=== PATIENT | female | born 1945 | race Caucasian/White ===

== ENCOUNTER 2023-08-15 10:07 | Outpatient (OUT) | payer MEDICARE, SELFPAY ==
--- NOTE | 2023-08-15 | VEIN_ITS ---
Patient Name: CHACHO EDWARDS MR#: [id number] : 1945 Exam Date: 08/15/2023 Ordering Doctor: DR BEATA MÉNDEZ RADIOLOGY REPORT PROCEDURE: [facility] - OFFICE VISIT INITIAL COMPARISON: None. PROGRESS NOTES: 78-year-old female who presents with a long history of lower extremity pain swelling and varicose veins. The patient complains of bilaterally symmetric pain rated as a 5 on a scale of 1-10. The patient describes the pain as aching heavy and dullness. This is significantly increased over the past year. The patient's symptoms are exacerbated by prolonged sitting and standing and are partially relieved by rest, late elevation, exercise, support stockings and over the counter Tylenol. The patient has had 2 episodes of deep vein thrombus 1 in the right groin following surgery 20 years ago and a 2nd in 2020 following covert. Both of these were thought to be provoked to the patient is not currently on anticoagulation. Patient has worn bilateral knee high compression stockings for several months which she obtained through the lymphedema clinic in [place]. The patient denies any signs and symptoms to suggest arterial ischemia. The patient describes a family history of varicose veins in a maternal aunt. . One of the patient's daughters was with her today's visit. Past medical history significant for lymphedema, type 2 diabetes, diabetic neuropathy, hypertension, diastolic dysfunction, deep vein thrombus, stage IIIB chronic kidney disease, stroke, morbid obesity, gastroesophageal reflux disease. Patient drinks alcohol occasionally. The patient has never smoked. No illicit drug use See separate history and physical for medication list. No prior treatment for varicose or spider veins. Nursing notes were reviewed. After history and physical exam I discussed at length the pathophysiology of venous hypertension and possible treatments, therapies and strategies available. We discussed at length the importance of elevating the lower extremities above the level of the heart, increased physical activity and compression stocking use. I discussed at length with the patient and her daughter that her swelling likely is multifactorial and related to lymphedema, diabetes, hypertension, diastolic dysfunction, obesity and lack of exercise. Her venous disease likely is mildly contributory. The risks benefits and alternatives were discussed with the patient. We discussed intravenous laser ablation and micro foam chemical ablation the alternatives of conservative therapy with compression stockings or compression wraps as well as ligation and stripping and phlebectomy were discussed Ultrasound venous reflux study performed same day was discussed at length with the patient. The report demonstrates moderate bilateral great saphenous vein venous insufficiency with dilatation saphenofemoral junction reflux. Bilateral incompetent varicose veins. Mild right and severe left deep vein reflux. PHYSICAL EXAM: The right leg demonstrates mild scattered varicose reticular and spider veins. Severe pitting edema below the knee. No active ulceration or hemosiderin staining. In the left leg demonstrates mild scattered varicose, reticular and spider veins. Severe pitting edema below the knee. No active ulceration or hemosiderin staining. Both thighs, legs and feet were symmetrically warm to the touch. The posterior tibial and dorsalis pedis pulses could not be palpated likely related to subcutaneous edema. VEIN/VC Facility EST Comprehensive IMPRESSION: 1. Moderate bilateral great saphenous vein venous insufficiency with dilatation and saphenofemoral junction reflux 2. Moderate bilateral incompetent lower extremity varicose veins 3. Severe bilateral lower extremity subcutaneous edema 4. Indeterminate flow significant arterial disease 5. CEAP: C3, Ep, As, Pr PLAN: 1. Endovenous laser ablation left great saphenous vein followed by right great saphenous vein 2. Micro foam chemical ablation bilateral incompetent varicose veins 3. Begin use of bilateral 20-30 mm compression stockings were compression wraps as tolerated by the patient 4. Weight loss and increased physical activity for symptomatic relief Nurse notes, history and physical were reviewed and confirmed, see attached forms. The nurse was present throughout the physical exam and consultation Dictated by: Fortunato Youngblood MD on 08/15/2023 at 12:06 Approved by: Fortunato Youngblood MD on 08/15/2023 at 12:12
--- NOTE | 2023-08-15 | VEIN_ITS ---
Patient Name: CHACHO EDWARDS MR#: [id number] : 1945 Exam Date: 08/15/2023 Ordering Doctor: DR BEATA MÉNDEZ RADIOLOGY REPORT PROCEDURE: VC EXT VENOUS REFLUX NARCISA LMTD COMPARISON: None. INDICATIONS: 187.2 venous stasis of both lower extremities TECHNIQUE: Duplex imaging of the lower extremity to assess the deep and superficial venous system for the presence of deep or superficial venous incompetence and to document the location and severity of disease. The study includes evaluation of the great saphenous vein (GSV), anterior accessory saphenous vein (AASV) and small saphenous vein (SSV). Patient scanned in reverse Trendelenburg and standing. FINDINGS: RIGHT LOWER EXTREMITY: Saphenofemoral Junction Reflux: Yes 10.5mm 3.1 sec GSV: Diam (mm) Reflux/ Time (sec) Proximal Thigh 10.2 Yes 1.4 Mid Thigh 5.8 Yes 1.5 Distal Thigh 5.1 Yes 2.6 Prox Calf 6.3 Yes 0.4 Mid Calf 4.4 Yes 0.6 Saphenopopliteal Junction Reflux: 3.8mm Yes 0.9 SSV: Proximal Calf 3.8 Yes 2.2 Mid Calf 3.8 No AASV: Not present Thrombi: No acute or chronic thrombus. Compressibility: Normal. Flow: Mild deep venous reflux. Preforator: None. Tech Note: Calf veins not well visualized. Abnormal lymph node right groin measures 4.1 x 2.8 x 1.3 cm. Incompetent varicose vein mid medial thigh measures 5.5 mm with 1.1s reflux. Varicose vein proximal medial lower leg measures 4.2 mm with 2.9s reflux. Medial knee varicose vein measures 4.5 mm with 1.9s reflux. LEFT LOWER EXTREMITY: Saphenofemoral Junction Reflux: Yes 9.1 mm 3.9 sec GSV: Diam (mm) Reflux/Time (sec) Proximal Thigh 9.0 Yes 1.7 Mid Thigh 7.3 Yes 1.1 Distal Thigh 6.9 Yes 0.7 Prox Calf 6.5 Yes 1.1 Mid Calf 4.8 Yes 0.6 Saphenopopliteal Junction Relux: 4.2 mm Yes 0.3 SSV: Proximal Calf 3.2 Yes 0.3 Mid Calf 2.9 Yes 0.4 AASV: Not present Thrombi: No acute or chronic thrombus. Compressibility: Normal. Flow: Severe deep venous reflux. [employer] Engineer: Proximal medial lower leg 3.9 mm with 1.8s reflux. Tech Note: Calf veins not well visualized. Incompetent varicose vein mid medial thigh measures 4.4 mm with 0.6s reflux. Mid medial thigh varicose vein measures 4.6 mm with 0.8s reflux. Proximal/medial lower leg varicose vein measures 4.9 mm with 1.6s reflux. CONCLUSION: 1. Moderate bilateral great saphenous vein venous insufficiency with dilatation and saphenofemoral junction reflux 2. Moderate venous insufficiency right small saphenous vein without dilatation 3. Bilateral incompetent varicose veins Dictated by: Fortunato Youngblood MD on 08/15/2023 at 11:20 Approved by: Fortunato Youngblood MD on 08/15/2023 at 11:23
== END 2023-08-15 10:08 | disposition home or self-care (01) ==
PROVIDERS: PCP Family Medicine; Visit Provider Family Medicine
DX: I87.2 Venous insufficiency (chronic) (peripheral) (principal); R60.0 Localized edema; E11.42 Type 2 diabetes mellitus with diabetic polyneuropathy; I87.8 Other specified disorders of veins
CPT/HCPCS: 93970; G0463

== ENCOUNTER 2023-08-24 10:23 | Outpatient (OUT) | payer MEDICARE, SELFPAY ==
--- NOTE | 2023-08-24 10:24 | VEIN_ITS ---
[address] [address] Patient Name: CHACHO EDWARDS MRN: [id number] date: 1945 Sex: F Assigned Patient Location: Current Patient Location: Accession/Order Number: [id number] Exam Date: 08/24/2023 10:35 Report Date: 08/24/2023 11:56 At the request of: ANGIE NGUYEN Procedure: VC Endovenous Ablation 1VeinLT EXAMINATION: VC Endovenous Ablation 1VeinLT HISTORY: Pain due to varicose veins of bilateral legs I83.813 The risks and benefits of the procedure had been previously discussed, and were rediscussed at length. Informed written consent was obtained. Stevo Marks RN and Tracy Mei RDMS, RVT assisted. Time out procedure was performed. The left lower extremity was prepared and draped in the usual sterile fashion to allow knee flexion in the sterile field. Duplex ultrasound probe was draped in a sterile cover, sterile transmission gel was used. Venous mapping was performed with the areas of dilation and large tributaries marked. The total length was 59 cm from the entry 3 cm above the ankle to 3 cm below the Saphenofemoral junction. The diameter of the left great saphenous vein ranged from 9.0 mm. A 30 gauge needle and 1% buffered lidocaine was used to anesthetize the entry site. A 4 mm incision was made with a scalpel and the saphenous vein was entered percutaneously under direct ultrasound guidance with a micropuncture set, a single stick was successful in gaining access. A micro-guide wire was inserted and the needle removed. A micro-set including a dilator was inserted over the microwire and the needle and dilator were removed. A guide wire was inserted through the micro-set and guided through the saphenous vein to the saphenofemoral junction. The dilator was removed and an introducer sheath was inserted over the wire until the end of the sheath entered the saphenofemoral junction. The dilator and wire were removed and the 600 micron fiber was introduced and placed and positioned so that it extended beyond the sheath and was 3 cm distal to the saphenofemoral or saphenopopliteal junction. Final position of the fiber was determined by ultrasound guidance and duplex imaging. Tumescent anesthetic was delivered by ultrasound guidance. 375 cc of fluid was delivered along the entire course of the saphenous vein. The solution consisted of 1000 cc of normal saline with 40 mL of 1% lidocaine and 20 mL of sodium bicarbonate. A final positioning check was made. The energy source was turned on by means of the foot pedal and the fiber and sheath were withdrawn. The total number of Joules delivered was 3051. The laser was active for 381 seconds under continuous pulse, average laser use of 8 J. Laser start time 11:31 AM, 08/24/2023. Laser stop time 11:38 AM, 08/24/2023. A duplex ultrasound revealed compressibility and flow at the saphenofemoral junction immediately after the procedure. Hemostasis at the access site was achieved. The skin incision of the saphenous vein was closed with a 4 x 4. A compression stocking was applied. Postop instructions were given. A follow up appointment was recommended and scheduled. The patient tolerated the procedure well. Electronically authenticated by: СВЕТЛАНА RODRIGUEZ Date: 08/24/2023 11:56
[2023-08-24] MEDS: LIDOCAINE HCL 1% 100 MG/10 ML MDV INJ (10:31)
[2023-08-24] MEDS: 0.9 % SODIUM CHLORIDE 500 ML, LIDOCAINE HCL 20 ML, SODIUM BICARBONATE 10 MEQ INJ (10:32)
--- OUTSIDE RECORDS SUMMARY | 2023-08-24 10:34 | XMS_ITS | CCD ---
Author Name Unknown Address [address] [place] [address] Organization [facility] Care Team Providers Care Mdm Developer Name Role Phone Lani Méndez Primary Care Provider Unavailab Daryl Velez Attending Provider Unavailable Lani Méndez Primary Care Physician Mel Suazo Unavailable Unavailable Sandy Rhoades Unavailable Unavailable Unavailable Primary Care Provider Unavailabl e PROVIDER, UNKNOWN Attending Unavailable PROVIDER, UNKNOWN Admitting Unavailable Rain Frederick Unavailable Unavailable MD Lani Méndez Primary Care Provider MD Delio Gonzales Admit Provider MD Delio Gonzales Attending Provider STEVE Nicolas Other Provider Unavailable STEVE Cowan Other Provider Unavailable STEVE Dubon Other Provider Unavailable STEVE Craig Other Provider Unavailable STEVE Jeong Other Provider Unavailable Kiana RN Jerilyn Other Provider Unavailable MD Amador Caldwell Other Provider Carmens, CRYPTANALYST Hilary Cobos Other Provider DO Helene Garcia Other Provider MD Rosales Cavanaugh Other Provider DO Damian Lugo Other Provider MD Maxime Palmer Other Provider MD Ashley Uribe Other Provider Reynaldo ANP-BC Jossy Other Provider MD Estre Gonzales Other Provider [phone] MD Gal Tovar Other Provider MD Bhavesh Gonzalez Other Provider MD Sherice Vera Other Provider DO Aldo Hughes Other Provider MD Yoselin Valencia Other Provider MD Asad Taylor Other Provider BRAULIO Ruelas Other Provider MD Wilfrid Huber Other Provider MD Caleb Roberts Other Provider MD Thiago Monteiro Other Provider DO Jillian Edwards Other Provider DO Andrew Lira Other Provider DO Jose David Bowens Other Provider [phone] ISIDRO Barry Other Provider DO Timothy Mercado Other Provider MD Fernando Rowe Other Provider ISIDRO Beyrs Other Provider STEVE Phipps Other Provider Unavailable Delio Gonzales Admitting Unavailable Delio Gonzales Attending Unavailable Jonelle Nicolas Consulting Unavailable AllLani garcía Primary Care Unavailable Gearheart, Katrin Consulting Unavailable Surekha Dubon Consulting Unavailable Densestevan, Frances Consulting Unavailable Salmons, Judy Consulting Unavailable Kiana, Jerilyn Consulting Unavailable Paulette, Amador K Consulting Unavailable Dials, Hilayr M Consulting Unavailable Helene Garcia Consulting Unavailable Rosales Cavanaugh Consulting Unavailable Damian Lugo Consulting UnavailMaxime Morfin Consulting Unavailable Rony Ashley Consulting Unavailable Jossy Jacobs Consulting Unavailable Ester Gonzales Consulting Unavailable Gal Tovar Consulting Unavailable Bhavesh Gonzalez Consulting Unavailable Sherice Vera Consulting Unavailable Aldo Hughes Consulting Unavailable Yoselin Valencia Consulting Unavailable Asad Taylor Consulting Unavailable Sophie Ruelas Consulting Unavailable Wilfrid Huber Consulting Unavailab Caleb Arellano Consulting Unavailable Thiago Monteiro Consulting Unavailable Jillian Edwards Consulting Unavailable Andrew Lira Consulting Unavailable Jose David Bowens Consulting Unavailable Kat Barry Consulting Unavailable Timothy Mercado Consulting Unavailable Daromar Obayjordih Papito Consulting Unavailable Michelle Byers Consulting Unavailable Eunice Phipps Consulting Unavailable Dayrl Oliver Unavailable JANA SOARES R Attending Unavailable LANI MÉNDEZ Attending Unavailable PETTY PATRICK Referring Unavailable LANI MÉNDEZ Attending Unavailable PETTY PATRICK Attending Unavailable CYNDI MORALES Attending Unavailab MD Dustin Larose Admitting Unavailable Lani Méndez Referring Unavailable Dustin Gonzales Attending Unavailable Lani Méndez Referring Unavailable Dustin Gonzales Admitting Unavailable Dustin Gonzales Attending Unavailable MD Dustin Gonzales Admitting Unavailable Dustin Gonzales Referring Unavailable Dustin Gonzales Attending Unavailable Mirna Bryant Attending Unavailable Lani Méndez Referring Unavailable CISCO Bryant Admitting Unavailabl MD Dustin Craig Admitting Unavailable Lani Méndez Referring Unavailable Dustin Gonzales Attending Unavailable Saul Soaresm Kurt Attending Unavailable Saul Soaresm Kurt Referring Unavailable MD Dustin Gonzales Admitting Unavailable Dustin Gonzales Attending Unavailable Dustin Gonzales Referring Unavailable Verónica Argueta Admitting Unavailable Verónica Argueta Attending Unavailable Esteban Francois Attending Unavailable Esteban Francois Referring Unavailable DO Esteban Francois Admitting Unavailabl e Dustin Gonzales Attending Unavailable Dustin Gonzales Admitting Unavailable Akkina, Shawn Admitting Unavailable Akkina, Shawn Attending Unavailable Akkina, Shawn Admitting Unavailable Akkina, Shawn Attending Unavailable Pantera Wise Attending Unavailable Verónica Argueta Attending Unavailable Allsop, Lani D Referring Unavailable Radha Farias Attending Unavailable Radha Farias Attending Unavailable MD Dustin Gonzales Admitting Unavailable Lani Méndez Referring Unavailable Dustin Gonzales Attending Unavailable Unavailable Unavailable Unavailable Allergies Allergy Classification Reported Allergen(s) Allergy Type Date of Onset Reaction(s) Facility (12 sources) Ciprofloxacin; Translations: [ciprofloxacin] Drug Allergy Nausea and vomiting [facility] (20 sources) Clarithromycin; Translations: [clarithromycin] Drug Allergy 06-29-19 itching, Unknown Reaction, Unknown [facility] (20 sources) Metoclopramide; Translations: [metoclopramide] Drug Allergy 06-29-19 Itching, Swelling, Unknown Reaction [facility] Comment on above: confusion (20 sources) pregabalin; Translations: [pregabalin] Drug Allergy 06-29-[address] [facility] (20 sources) Sulfamethoxazole / Trimethoprim; Translations: [sulfamethoxazole-t rimethoprim] Drug Allergy edema, dizziness [facility] (20 sources) Sulfonamides (Antibiotic); Translations: [sulfa drugs] Drug allergy itching [facility] (2 sources) Sulfamethoxazole; Translations: [sulfamethoxazole] Drug Allergy 06-29-19 Unknown Reaction [facility] (2 sources) Sulfonamides (Antibiotic); Translations: [Sulfa (Sulfonamide Antibiotics)] Allergy to substance 06-29-19 Unknown Reaction [facility] (2 sources) Trimethoprim; Translations: [trimethoprim] Drug Allergy 06-29-19 Unknown Reaction [facility] (1 source) Clarithromycin Drug Allergy 06-29-19 [facility] (1 source) Metoclopramide Drug Allergy 06-29-19 [facility] (1 source) pregabalin Drug Allergy 06-29-19 [facility] (1 source) Sulfonamides (Antibiotic) Propensity to adverse reactions Unknown [employer] Other (1 source) Metoclopramide; Translations: [Reglan] Drug Allergy [facility] Repository Medications Current Medications Medication Drug Class(es) Dates Sig (Normalized) Sig (Original) acetaminophen 500 mg oral tablet (20 sources) Start: 07-12-2022 take 1000 mg by mouth three times daily Acetaminophen Active 1000 MG PO Three times daily July 12, 2022 12:00am Start: 01-01-2017 Tylenol 8 HR A rthritis Pain 650 mg oral tablet, extended release 1,300 mg = 2 tab(s), Oral, q8hr, PRN Pain, Refills(s) 0, Pain Start Date: 01/01/17 Status: Ordered take 2 tablets by mo [facility] every six hours acetaminophen 325 mg / oxyCODONE hydrochloride 5 mg oral tablet (4 sources) Opioid Agonist Start: 05-21-2023 acetaminophen- oxycodone 325 mg-5 mg Tab 1 tab(s), Refill(s) 0 Start Date: 05/21/23 Status: Ordered oxyCODONE-Acetam inophen 5-325 MG Oral for 30 Days Active amoxicillin 875 mg / clavulanate 125 mg oral tablet (2 sources) Penicillin-class Antibacterial Start: 09-02-2022 End: 09-09-2022 take 1 tablet by mouth every twelve hours Augmentin 875 mg oral tablet = 1 tab(s), Oral, q12hr, X 7 day(s), # 14 tab(s), Refills(s) 0, Pharmacy: [facility], 162, cm, 09/02/22 12:13:00 EDT, Height/Length Dosing, 127, kg, 09/02/22 12:13:00 EDT, Weight Dosing Start Date: 09/02/22 Stop Date: 09/09/22 Status: Ordered Aspir-81 81 MG (1 source) take 1 tablet by mouth once daily Aspir-81 81 MG 1 tablet Orally Once a day *please review for potential _update for e-prescription and drug interaction check* Active aspirin 81 mg chewable tablet (19 sources) Platelet Aggregation Inhibitor, Nonsteroidal Anti-inflammatory Drug Start: 07-12-2022 take 1 tablet by mouth once daily Aspirin (Children's Aspirin) 81 mg Tablet,Chewable Active 81 MG PO Daily July 12, 2022 12:00am Start: 06-27-2022 take 1 tablet by eldon once daily aspirin 81 mg Oral EC Tab 81 mg = 1 tab(s), Oral, Daily, # 30 tab(s), Refills(s) 0, Pharmacy: [facility], 163, cm, 06/23/22 7:22:00 EST, Height/Length Dosing, 130.4, kg, 06/23/22 7:22:00 EST, Weight Dosing Start Date: 06/27/22 Status: Ordered atenolol 25 mg oral tablet (20 sources) beta-Adrenergic Valerie Start: 07-12-2022 take 50 mg by mouth once daily at bedtime Atenolol Active 50 MG PO Daily at bedtime July 12, 2022 12:00am Start: 07-12-2022 take 25 mg by mouth once daily in the morning Atenolol Active 25 MG PO Every morning July 12, 2022 12:00am Start: 06-26-2022 End: 06-26-2022 atenolol 50 mg Tab 50 mg = 1 tab(s), Tab, Oral, Start date 06/26/22 21:00:00 EST, 06/24/22 8:32:00 EST Start Date: 06/26/22 Stop Date: 06/26/22 Status: Completed Start: 02-27-2019 take 1 tablet by mouth at bedt yeimi atenolol 50 mg Tab 50 mg = 1 tab(s), Oral, Bedtime, Refills(s) 0, High blood pressure Start Date: 02/27/19 Status: Ordered Start: 02-27-2019 atenolol 50 mg Tab 25 mg = 0.5 tab(s), Oral, Daily, takes in am, Refills(s) 0, High blood pressure Start Date: 02/27/19 Status: Ordered take 0.5 tablet by m outh in the morning, then take 1 tablet by mouth once daily in the evening Atenolol 50 MG 1/2 tablet in the am and 1 in the pm Orally Once a day for 30 Active atorvastatin 80 mg oral tablet (20 sources) HMG-CoA Reductase Inhibitor Start: 06-27-2022 take 1 tablet by mouth once daily atorvastatin 80 mg Tab 80 mg = 1 tab(s), Oral, Daily, # 30 tab(s), Refills(s) 0, Pharmacy: [facility], 163, cm, 06/23/22 7:22:00 EST, Height/Length Dosing, 130.4, kg, 06/23/22 7:22:00 EST, Weight Dosing Start Date: 06/27/22 Status: Ordered bisacodyl 10 mg rectal suppository (1 source) Stimulant Laxative Start: 07-12-2022 Bisacodyl Active 10 MG SD Daily July 12, 2022 12:00am cefpodoxime 100 mg oral tablet (4 sources) Cephalosporin Antibacterial Start: 12-06-2022 cefpodoxime 100 mg oral tablet Refills(s) 0 Start Date: 12/06/22 Status: Ordered cephalexin 500 mg oral capsule (2 sources) Cephalosporin Antibacterial Start: 01-10-2023 End: 01-13-2023 take 1 capsule by mouth every six hours cephalexin 500 mg Cap 500 mg = 1 cap(s), Oral, q6hr, X 3 day(s), # 12 cap(s), Refills(s) 0, Pharmacy: [facility], 162, cm, 01/10/23 7:41:00 EDT, Height/Length Dosing, 131, kg, 12/31/22 22:40:00 EDT, Weight Dosing Start Date: 01/10/23 Stop Date: 01/13/23 Status: Ordered Cephalexin 500 M G Oral for 10 Days Active ciprofloxacin 500 mg oral tablet (2 sources) Quinolone Antimicrobial Start: 12-31-2022 End: 01-07-2023 take 1 tablet by mouth every twelve hours Cipro 500 mg Tab 500 mg = 1 tab(s), Oral, q12hr, X 7 day(s), # 14 tab(s), Refills(s) 0, Pharmacy: [facility], 162, cm, 12/31/22 22:40:00 EDT, Height/Length Dosing, 131, kg, 12/31/22 22:40:00 EDT, Weight Dosing Start Date: 12/31/22 Stop Date: 01/07/23 Status: Ordered diclofenac sodium 0.01 mg/mg topical gel (8 sources) Nonsteroidal Anti-inflammatory Drug Start: 06-01-2022 diclofenac topical 1% gel 1 taylor, Topical, QID for pain, 100 gram, Refill(s) 0, [facility], 163, cm, 06/01/22 14:39:00 EST, Height/Length Dosing, 119.2, kg, 11/09/21 13:50:00 EDT, Weight Dosing Start Date: 06/01/22 Status: Ordered docusate sodium 100 mg oral capsule (1 source) Start: 07-12-2022 take 100 mg by mouth twice daily Docusate Sodium Active 100 MG PO Twice daily July 12, 2022 12:00am estradiol 0.1 mg/ml vaginal cream (3 sources) Estrogen Start: 05-21-2023 Estrace 0.1 mg/g Cream See Instructions, 42.5 gm, Refill(s) 4, Apply pea size amount to outer urethra 3x/week x 1 mos at bedtime, 2x/week for maintenance, [facility], 163, cm, 05/21/23 13:47:00 EST, Height/Length Dosing, 122.5, kg, 05/21/23 13:47:00 EST, Weight Dosing Start Date: 05/21/23 Status: Ordered fluticasone propionate 0.05 mg/actuat metered dose nasal spray (1 source) Corticosteroid take 2 spray(s) nasal route once daily as needed furosemide 20 mg oral tablet (1 source) Loop Diuretic take 0.5 tablet by mouth once daily gabapentin 600 mg oral tablet (20 sources) Anti-epileptic Agent Start: 06-25-2023 End: 09-23-2023 take 2 tablets by mouth twice daily gabapentin 600 mg Tab 1,200 mg = 2 tab(s), Oral, BID, X 90 day(s), # 360 tab(s), Refills(s) 0, Pharmacy: [facility], 163, cm, 05/21/23 13:47:00 EST, Height/Length Dosing, 122.5, kg, 05/21/23 13:47:00 EST, Weight Dosing Start Date: 06/25/23 Stop Date: 09/23/23 Status: Ordered Start: 07-12-2022 take 600 mg by mouth twice lillian ly Gabapentin Active 600 MG PO Twice daily 120 July 12, 2022 12:00am Start: 06-27-2022 take 1 tablet by eldon th twice daily gabapentin 800 mg Tab 800 mg = 1 tab(s), Oral, BID, # 60 tab(s), Refills(s) 0, Pharmacy: [facility], 163, cm, 06/23/22 7:22:00 EST, Height/Length Dosing, 130.4, kg, 06/23/22 7:22:00 EST, Weight Dosing Start Date: 06/27/22 Status: Ordered Start: 01-06-2021 End: 05-31-2023 take 2 tablets by mouth twice daily gabapentin 600 mg Tab 1,200 mg = 2 tab(s), Oral, BID, X 90 day(s), # 360 tab(s), Refills(s) 0, Pharmacy: [facility], 162, cm, 03/02/23 11:42:00 EDT, Height/Length Dosing, 131, kg, 12/31/22 22:40:00 EDT, Weight Dosing Start Date: 03/02/23 Stop Date: 05/31/23 Status: Ordered take 2 capsules by m outh in the morning, then take 2 capsules by mouth at bedtime Gabapentin 300 MG 2 capsule in am and 2 capsules at bedtime Orally Active Humalog Mix 75/25 KwikPen (17 sources) Start: 06-28-2022 Humalog Mix 75 /25 KwikPen See Instructions, Refill(s) 0, 25 units Breakfast, 35 units Supper Start Date: 06/28/22 Status: Ordered hydroCHLOROthiazide 25 mg oral tablet (11 sources) Thiazide Diuretic Start: 12-06-2022 hydrochlorothiazide 25 mg Tab Refills(s) 0 Start Date: 12/06/22 Status: Ordered take 1 tablet by eldon th every twenty-four hours hydroCHLOROthiazide 12.5 MG 1 tablet in the morning Orally Once a day Active 3 ml insulin aspart protamine, human 70 unt/ml / insulin aspart, human 30 unt/ml pen injector (2 sources) Insulin Analog Start: 07-12-2022 Insulin Asp Prt-Insulin Aspart (Novolog Mix 70-30flexpen U-100) 100 unit/mL (70-30) Insulin Pen Active 20 UNIT SUBCUT Every morning July 12, 2022 12:00am insulin lispro 25 unt/ml / insulin lispro protamine, human 75 unt/ml injectable suspension (1 source) Insulin Analog HumaLOG Mix 75/2 5 (75-25) 100 UNIT/ML 22 units breakfast and 35 units at dinner Subcutaneous daily Active levETIRAcetam 250 mg oral tablet (20 sources) Start: 07-12-2022 take 750 mg by mouth twice daily Levetiracetam Active 750 MG PO Twice daily 180 July 12, 2022 12:00am Start: 06-27-2022 take 1 tablet by eldon th twice daily Keppra 750 mg oral tablet 750 mg = 1 tab(s), Oral, BID, # 60 tab(s), Refills(s) 0, Pharmacy: [facility], 163, cm, 06/23/22 7:22:00 EST, Height/Length Dosing, 130.4, kg, 06/23/22 7:22:00 EST, Weight Dosing Start Date: 06/27/22 Status: Ordered lidocaine 0.04 mg/mg medicated patch (1 source) Antiarrhythmic, Amide Local Anesthetic Start: 07-12-2022 apply 1 dose topically once daily Lidocaine (Lidocaine Pain Relief) 4 % Adhesive Patch,Medicated Active 2 PATCH TOPICAL Daily July 12, 2022 12:00am 3 ml liraglutide 6 mg/ml pen injector (20 sources) GLP-1 Receptor Agonist Start: 07-12-2022 Liraglutide (Victoza 3-Yared) 0.6 mg/0.1 mL (18 mg/3 mL) Pen Injector Active 1.8 MG SUBCUT Daily July 12, 2022 12:00am Start: 12-13-2017 inject 1.8 mg by sub cutaneous injection once daily Victoza 1.8 mg, SubCutaneous, Daily, Refills(s) 0, Blood glucose Start Date: 12/13/17 Status: Ordered inject 1.2 mg by sub cutaneous injection once daily Victoza 18 MG/3ML 1.2 mg Subcutaneous daily Active lisinopril 10 mg oral tablet (20 sources) Angiotensin Converting Enzyme Inhibitor Start: 07-12-2022 take 10 mg by mouth once daily Lisinopril Active 10 MG PO Daily 30 July 12, 2022 12:00am Start: 10-01-2013 End: 06-27-2022 take 1 tablet by mouth once daily lisinopril 20 mg Tab 20 mg = 1 tab(s), Oral, Daily, Refills(s) 0, High blood pressure Start Date: 10/01/13 Status: Ordered lovastatin 40 mg oral tablet (4 sources) HMG-CoA Reductase Inhibitor Start: 07-27-2016 take 40 mg by mouth once daily lovastatin 40 mg, Oral, Daily, Refills(s) 0, High cholesterol Start Date: 07/27/16 Status: Ordered 24 hr mirabegron 50 mg extended release oral tablet (3 sources) beta3-Adrenergic Agonist Start: 05-21-2023 take 1 tablet by mouth once daily Myrbetriq 50 mg oral tablet, extended release 50 mg = 1 tab(s), Oral, Daily, # 30 tab(s), Refills(s) 11, Pharmacy: [facility], 163, cm, 05/21/23 13:47:00 EST, Height/Length Dosing, 122.5, kg, 05/21/23 13:47:00 EST, Weight Dosing Start Date: 05/21/23 Status: Ordered nystatin 100 unt/mg topical powder (1 source) Polyene Antifungal Start: 07-12-2022 Nystatin (N ystop) 100,000 unit/gram Powder Active 1 APPLIC TOPICAL Three times daily 1 July 12, 2022 12:00am omeprazole 20 mg delayed release oral capsule (20 sources) Proton Pump Inhibitor Start: 07-12-2022 take 40 mg by mouth once daily Omeprazole Active 40 MG PO Daily 60 July 12, 2022 12:00am Start: 06-21-2017 take 40 mg by mouth once daily omeprazole 40 mg, Oral, Daily, Refills(s) 0, Control of stomach acid Start Date: 06/21/17 Status: Ordered take 1 capsule by [facility]-four hours Omeprazole 40 MG 1 tablet Oral Once a day for 90 days Active Britni Barker - (1 source) oxyCODONE hydrochloride 5 mg oral tablet (20 sources) Opioid Agonist Start: 01-10-2023 take 1 tablet by mouth every six hours as needed for pain oxyCODONE 5 mg Tab 5 mg = 1 tab(s), Oral, q6hr, PRN for pain, # 20 tab(s), Refills(s) 0, Pharmacy: [facility], 162, cm, 01/10/23 7:41:00 EDT, Height/Length Dosing, 131, kg, 12/31/22 22:40:00 EDT, Weight Dosing Start Date: 01/10/23 Status: Ordered Start: 07-12-2022 take 5 mg by mouth e very four hours Oxycodone Active 5 MG PO Every 4 hours 14 July 12, 2022 Start: 06-28-2022 take 2.5 mg by mouth twice daily as needed for pain oxyCODONE 5 mg Tab 2.5 mg = 0.5 tab(s), Oral, BID, PRN pain, Refills(s) 0 Start Date: 06/28/22 Status: Ordered phenazopyridine hydrochloride 100 mg oral tablet (1 source) Start: 12-31-2022 End: 01-02-2023 take 1 tablet by mouth three times daily Pyridium 100 mg Tab 100 mg = 1 tab(s), Oral, TID, X 2 day(s), # 6 tab(s), Refills(s) 0, Pharmacy: [facility] 1986, 162, cm, 12/31/22 22:40:00 EDT, Height/Length Dosing, 131, kg, 12/31/22 22:40:00 EDT, Weight Dosing Start Date: 12/31/22 Stop Date: 01/02/23 Status: Ordered traMADol hydrochloride 100 mg oral tablet (4 sources) Opioid Agonist Start: 03-21-2017 take 100 mg by mouth twice daily tramadol 100 mg, Oral, BID, Dr. Méndez, Refills(s) 0, Pain Start Date: 03/21/17 Status: Ordered take 2 tablets by mouth every ei ght hours traZODone hydrochloride 100 mg oral tablet (4 sources) Serotonin Reuptake Inhibitor Start: 09-02-2022 traZODONE 100 mg Tab Refills(s) 0 Start Date: 09/02/22 Status: Ordered Start: 07-12-2022 take 100 mg by mouth once daily at bedtime Trazodone Active 100 MG PO Daily at bedtime 30 July 12, 2022 12:00am Completed/Discontinued Medications Medication Drug Class(es) Dates Sig (Normalized) Sig (Original) Humalog (11 sources) Insulin Analog Start: 06-26-2022 End: 06-26-2022 HumaLOG Sliding Scale 0-10 Units, Injection-Insulin, SubCutaneous, Start date 06/26/22 21:00:00 EST Start Date: 06/26/22 Stop Date: 06/26/22 Status: Completed Start: 06-26-2022 End: 06-26-2022 HumaLOG Sliding Scale 0-10 U nits, Injection-Insulin, SubCutaneous, Start date 06/26/22 16:30:00 EST Start Date: 06/26/22 Stop Date: 06/26/22 Status: Completed Start: 06-26-2022 End: 06-26-2022 HumaLOG Sliding Scale 0-10 U nits, Injection-Insulin, SubCutaneous, Start date 06/26/22 7:30:00 EST Start Date: 06/26/22 Stop Date: 06/26/22 Status: Completed Start: 03-13-2019 inject 35 [IU] by sanchez bcutaneous injection once daily in the evening Humalog 35 unit(s), SubCutaneous, qPM, Blood glucose Start Date: 03/13/19 Status: Ordered Start: 03-22-2017 inject 25 [IU] by sanchez bcutaneous injection once daily in the morning Humalog 25 unit(s), SubCutaneous, qAM, Refills(s) 0, Blood glucose Start Date: 03/22/17 Status: Ordered Problems Active Problems Problem Classification Problem Date Documented Date Episodic/Chronic Acute cerebrovascular disease (3 sources) Cerebrovascular accident; Translations: [Cerebral infarction, unspecified] Onset: 06-29-1906-30-2022 Chronic Administrative/social admission (3 sources) Other reduced mobility; Translations: [Impaired mobility and activities of daily living] Onset: 06-29-1906-30-2022 Episodic Blindness and vision defects (20 sources) 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 Blindness and vision defects (18 sources) Homonymous bilateral field defects, left side; 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] Onset: 06-28-19 Episodic Chronic kidney disease (20 sources) Chronic kidney disease stage 3B ; Translations: [Chronic kidney disease, stage 3b] Onset: 06-28-19 Chronic Complication of device; implant or graft (1 source) Other mechanical complication of implanted electronic neurostimulator of spinal cord electrode (lead), initial encounter Episodic Deficiency and other anemia (1 source) Iron deficiency anemia; Translations: [Other iron deficiency anemias] Episodic Diabetes mellitus with complications (20 sources) Neuropathy due to diabetes mellitus; Translations: [Polyneuropathy due to type 2 diabetes mellitus] Onset: 06-28-1902-27-2019 Chronic Diabetes mellitus without complication (8 sources) Diabetes mellitus; Translations: [Type 2 diabetes mellitus without complication] Onset: 06-23-1908-02-2016 Chronic Disorders of lipid metabolism (4 sources) Hyperlipidemia; Translations: [Hyperlipidemia, unspecified] Onset: 06-29-1906-30-2022 Chronic E Codes: Fall (1 source) Fall; Translations: [Unspecified fall, initial encounter] Episodic Epilepsy; convulsions (18 sources) Localization-related epilepsy; 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, not intractable, without status epilepticus] Onset: 06-28-19 Chronic Esophageal disorders (20 sources) Gastroesophageal reflux disease; Translations: [Gastro-esophageal reflux disease without esophagitis] 02-27-2019 Chronic Essential hypertension (5 sources) Essential hypertension; Translations: [Essential (primary) hypertension] Onset: 06-23-19 Chronic Genitourinary symptoms and ill-defined conditions (4 sources) Urge incontinence; Translations: [Urge incontinence of urine] Onset: 05-21-20 Chronic Genitourinary symptoms and ill-defined conditions (1 source) Dysuria; Translations: [Dysuria] Onset: 09-03-19 Episodic Late effects of cerebrovascular disease (1 source) Hemiplegia of nondominant side as late effect of cerebrovascular disease; Translations: [Hemiplegia and hemiparesis following cerebral infarction affecting left non-dominant side] Onset: 06-28-19 Chronic Malaise and fatigue (1 source) Asthenia; Translations: [Weakness] Episodic Osteoarthritis (20 sources) Arthritis; Translations: [Degenerative joint disease involving multiple joints] Onset: 06-23-1907-08-2020 Chronic Osteoporosis (1 source) Senile osteoporosis; Translations: [Age-related osteoporosis without current pathological fracture] Chronic Other aftercare (2 sources) Long-term current use of insulin; Translations: [watermaster (current) use of insulin] Episodic Other and ill-defined heart disease (1 source) Diastolic dysfunction; Translations: [Heart disease, unspecified] Chronic Other circulatory disease (4 sources) H/O: hypertension 02-15-2015 Episodic Other connective tissue disease (1 source) Musculoskeletal symptom; Translations: [Other symptoms and signs involving the musculoskeletal system] Onset: 06-23-19 Episodic Other nervous system disorders (1 source) Chronic pain; Translations: [Other chronic pain] Chronic Other nervous system disorders (1 source) Other chronic pain Chronic Other nervous system disorders (1 source) Paresthesia; Translations: [Paresthesia of skin] Onset: 06-23-19 Episodic Other non-traumatic joint disorders (4 sources) Knee pain 02-27-2019 Episodic Other nutritional; endocrine; and metabolic disorders (2 sources) Morbid obesity; Translations: [Morbid (severe) obesity due to excess calories] Onset: 06-23-19 Chronic Other nutritional; endocrine; and metabolic disorders (3 sources) Body mass index 40+ - severely obese; Translations: [Morbid (severe) obesity due to excess calories] 06-30-2022 Chronic Other nutritional; endocrine; and metabolic disorders (2 sources) Morbid (severe) obesity due to excess calories; Translations: [Morbid obesity] Onset: 06-29-1907-13-2022 Chronic Other nutritional; endocrine; and metabolic disorders (4 sources) History of hypercholesterolemia 11-27-2013 Episodic Other nutritional; endocrine; and metabolic disorders (20 sources) H/O: obesity 02-15-2015 Episodic Paralysis (20 sources) Hemiplegia of left nondominant side; Translations: [Left hemiplegia] Onset: 06-29-1906-28-2022 Chronic Phlebitis; thrombophlebitis and thromboembolism (20 sources) Deep venous thrombosis; Translations: [H/O: Deep vein thrombosis] 02-15-2015 Episodic Comment on above: leg left leg Residual codes; unclassified (1 source) Patient encounter status; Translations: [Other specified health status] Onset: 06-23-19 Episodic Residual codes; unclassified (1 source) Device in situ; Translations: [Presence of neurostimulator] 06-30-2022 Episodic Residual codes; unclassified (1 source) Presence of neurostimulator; Translations: [Other postprocedural status] 07-13-2022 Episodic Residual codes; unclassified (1 source) Other specified health status; Translations: [Other specified health status] Onset: 06-29-19 Episodic Residual codes; unclassified (1 source) Edema; Translations: [Edema, unspecified] Episodic Spondylosis; intervertebral disc disorders; other back problems (2 sources) Bilateral inflammation of sacroiliac joint; Translations: [Sacroiliitis, not elsewhere classified] Chronic Spondylosis; intervertebral disc disorders; other back problems (20 sources) Lumbosacral radiculopathy; Translations: [Radiculopathy, lumbosacral region] Onset: 06-28-19 Episodic Superficial injury; contusion (1 source) Contusion of left wrist; Translations: [Contusion of left wrist, initial encounter] Episodic Unclassified (1 source) Presence of neurostimulator; Translations: [Presence of neurostimulator] Onset: 06-29-19 Urinary tract infections (7 sources) Urinary tract infectious disease; Translations: [Urinary tract infection, site not specified] Onset: 06-23-19 Episodic Past or Other Problems Problem Classification Problem Date Documented Date Episodic/Chronic E Codes: Fall (4 sources) Fall Onset: 03-11-2019 03-13-2019 Comment on above: right eye is ecchymo tic Other circulatory disease (11 sources) History of cerebrovascular accident without residual deficits Onset: 06-23-2022 10-26-2022 Episodic Other injuries and conditions due to external causes (20 sources) Fracture of bone Onset: 12-09-2021 02-02-2022 Episodic Comment on above: L ulnar styloid fx w ith routine healing, Pain/paresthesia R hand Unclassified (1 source) Low back pain, unspecified M54.50 Results Test Name Value Interpretation Reference Range Facility CHEMISTRYOrdered By: SYSTEM SYSTEM on 07-05-2023 Albumin [Mass/Vol] 3.8 g/dL Normal 3.3 - 5.0 gm/dL Remisol Chem Anion gap [Moles/Vol] 11 mmol/L Normal 6 - 16 mEq/L [facility] Chem Calcium [Mass/Vol] 8.3 mg/dL Low 8.9 - 11. 1 mg/dL [facility] Chloride [Moles/Vol] 111 mmol/L Normal 101 - 1 11 mmol/L [facility] CO2 [Moles/Vol] 25 mmol/L Normal 21 - 31 mmol/L [facility] Creatinine [Mass/Vol] 1.4 mg/dL High 0.5 - 1.3 mg/dL [facility] Chem eGFR 39 mL/min/1.73 m2 Low >=59mL/min / 1.73 m2 [facility] Glucose [Mass/Vol] 100 mg/dL Normal 55 - 199 mg/dL [facility] Phosphate [Mass/Vol] 3.1 mg/dL Normal 1.9 - 4 .6 mg/dL [facility] Potassium [Moles/Vol] 4.6 mmol/L Normal 3.5 - 5.3 mmol/L [facility] Sodium [Moles/Vol] 142 mmol/L Normal 135 - 145 mmol/L [facility] Urea nitrogen [Mass/Vol] 23 mg/dL High 5 - 21 mg/dL [facility] Urea nitrogen/Creatinine [Mass ratio] 16 mg/mg Normal - [facility] Chem U Creatinine 129.7 mg/dL Invalid Interpretation Code Remisol Chem U Prot/Creat Ratio 8.80 mg/gm Cr Normal 0.00 - 200.00 mg/gm Cr Remisol Chem Ur Total Protein 11.4 mg/dL Invalid Interpretation Code Remisol Chem Consent for Treatmenton 06-18 Consent for Treatment [id number] .00TIFF Normal [facility] Physician Orderon 07-05-2023 Physician Order [id number]# 1.00TIFF Normal [facility] Renal Panelon 07-05-2023 Albumin [Mass/Vol] 3.8 g/dL Normal 3.3-5.0 [facility] Comment on above: Performed By: #### 1 [id number], [id number] #### [facility] [address] [place] [address] Anion gap [Moles/Vol] 11 mmol/L Normal - [facility] Comment on above: Performed By: #### 1 [id number], [id number] #### [facility] [address] [place] [address] BUN/Creat Ratio 16 No Units Normal 04-06 [facility] Comment on above: Performed By: #### 1 [id number], [id number] #### [facility] [address] [place] [address] Calcium [Mass/Vol] 8.3 mg/dL Low 8.9-11.1 [facility] Comment on above: Performed By: #### 1 [id number], [id number] #### [facility] [address] [place] [address] Chloride [Moles/Vol] 111 mmol/L Normal 101-111 [facility] Comment on above: Performed By: #### 1 [id number], [id number] #### [facility] [address] [place] [address] CO2 [Moles/Vol] 25 mmol/L Normal 21-31 [facility] Comment on above: Performed By: #### 1 [id number], [id number] #### [facility] [address] [place] [address] Creatinine [Mass/Vol] 1.4 mg/dL High 0.5-1.3 [facility] Comment on above: Performed By: #### 1 [id number], [id number] #### [facility] [address] [place] [address] Glucose [Mass/Vol] 100 mg/dL Normal 55-199 [facility] Comment on above: Performed By: #### 1 [id number], [id number] #### [facility] [address] [place] [address] Phosphate [Mass/Vol] 3.1 mg/dL Normal 1.9-4.6 [facility] Comment on above: Performed By: #### 1 [id number], [id number] #### [facility] [address] [place] [address] Potassium [Moles/Vol] 4.6 mmol/L Normal 3.5-5.3 [facility] Comment on above: Performed By: #### 1 [id number], [id number] #### [facility] [address] [place] [address] Sodium [Moles/Vol] 142 mmol/L Normal 135-145 [facility] Comment on above: Performed By: #### 1 [id number], [id number] #### [facility] [address] [place] [address] Urea nitrogen [Mass/Vol] 23 mg/dL High 5-21 [facility] Comment on above: Performed By: #### 1 [id number], [id number] #### [facility] [address] [place] [address] U Protein/Creat Ratioon 06-18 U Creatinine 129.7 mg/dL Invalid Interpretation Code [facility] Comment on above: Performed By: #### 1 [id number], [id number] #### [facility] [address] [place] [address] U Prot/Creat Ratio 8.80 mg/gm Cr Normal .00-200.00 [facility] Comment on above: Performed By: #### 1 [id number], [id number] #### [facility] [address] [place] [address] Ur Total Protein 11.4 mg/dL Invalid Interpretation Code [facility] Comment on above: Performed By: #### 1 [id number], [id number] #### [facility] [address] [place] [address] URINALYSISOrdered By: Brent Dumont on 07-05-2023 Bilirubin Ql (U) Negative (07/05/23 1:19 PM) Normal Negative [facility] UA Auto SS Clarity (U) Clear (07/05/23 1:19 PM) Normal Clear [facility] UA Auto SS Color (U) Yellow (07/05/23 1:19 PM) Normal Yellow [facility] UA Auto SS Epithelial cells.squamous LM.HPF (Urine sed) [#/Area] 3-4 /HPF Normal 0-2/HPF [facility] UA Aut o SS Glucose Test strip (U) [Mass/Vol] Negative (07/05/23 1:19 PM) Normal Negative [facility] UA Auto SS Hemoglobin Ql (U) Negative (07/05/23 1:19 PM) Normal Negative [facility] UA Auto SS Ketones (U) [Mass/Vol] Negative (07/05/23 1:19 PM) Normal Negative [facility] UA Auto SS [place].plasma/[place]. RBC (Bld) [Mass ratio] 0-3 /HPF Normal 0-3/HPF [facility] UA A uto SS Nitrite Ql (U) Negative (07/05/23 1:19 PM) Normal Negative [facility] [place] Auto SS pH (U) 5.5 *NA* (07/05/23 1:19 PM) Invalid Interpretation Code 5.0 - 9.0 [facility] [place] Auto SS Protein (U) [Mass/Vol] Negative (07/05/23 1:19 PM) Normal Negative [facility] [place] Auto SS Specific gravity (U) [Rel density] 1.025 *NA* (07/05/23 1:19 PM) Invalid Interpretation Code 1.005 - 1.030 [facility] [place] Auto SS UA Spec Desc Clean Catch (07/05/23 1:19 PM) Normal [facility] [place] Auto SS Urobilinogen Qn (U) 0.1148568 {Dasia'U}/dL Normal 0.0 - 1.0 EU/dL [facility] Auto SS WBC Auto Ql (U) Negative (07/05/23 1:19 PM) Normal Negative [facility] Auto SS WBC LM.HPF (Urine sed) [#/Area] 0-5 /HPF Normal 0-5/HPF [facility]A Auto SS Urinalysison 07-05-2023 Bilirubin Ql (U) Negative Normal Negative [facility] Comment on above: Performed By: #### 1 [id number], [id number] #### [facility] [address] [place] [address] Clarity (U) CLEAR Normal Clear [facility] Comment on above: Performed By: #### 1 [id number], [id number] #### [facility] [address] [place] [address] Color (U) YELLOW Normal Yellow [facility] Comment on above: Performed By: #### 1 [id number], [id number] #### [facility] [address] [place] [address] Epithelial cells.squamous LM.HPF (Urine sed) [#/Area] 3-4 Normal 0-2 [facility] Comment on above: Performed By: #### 1 [id number], [id number] #### [facility] [address] [place] [address] Glucose Test strip (U) [Mass/Vol] Negative Normal Negative [facility] Comment on above: Performed By: #### 1 [id number], [id number] #### [facility] [address] [place] [address] Hemoglobin Ql (U) Negative Normal Negative [facility] Comment on above: Performed By: #### 1 [id number], [id number] #### [facility] [address] [place] [address] Ketones (U) [Mass/Vol] Negative Normal Negative [facility] Comment on above: Performed By: #### 1 [id number], [id number] #### [facility] [address] [place] [address] [place].plasma/[place]. RBC (Bld) [Mass ratio] 0-3 Normal 0-3 [facility] Comment on above: Performed By: #### 1 [id number], [id number] #### [facility] [address] [place] [address] Nitrite Ql (U) Negative Normal Negative [facility] Comment on above: Performed By: #### 1 [id number], [id number] #### [facility] [address] [place] [address] pH (U) 5.5 [pH] Invalid Interpretation Code 5.0-9.0 [facility] Comment on above: Performed By: #### 1 [id number], [id number] #### [facility] [address] [place] [address] Protein (U) [Mass/Vol] Negative Normal Negative [facility] Comment on above: Performed By: #### 1 [id number], [id number] #### [facility] [address] [place] [address] Specific gravity (U) [Rel density] 1.025 Invalid Interpretation Code 1.005-1.030 [facility] Comment on above: Performed By: #### 1 [id number], [id number] #### [facility] [address] [place] [address] Type of Urine collection method Clean Catch Normal [facility] Comment on above: Performed By: #### 1 [id number], [id number] #### [facility] [address] [place] [address] Urobilinogen Qn (U) 0.2 {Dasia'U}/dL Normal 0.0-1.0 [facility] Comment on above: Performed By: #### 1 [id number], [id number] #### [facility] [address] [place] [address] WBC Auto Ql (U) Negative Normal Negative [facility] Comment on above: Performed By: #### 1 [id number], [id number] #### [facility] [address] [place] [address] WBC LM.HPF (Urine sed) [#/Area] 0-5 Normal 0-5 [facility] Comment on above: Performed By: #### 1 [id number], [id number] #### [facility] [address] [place] [address] eGFRon 07-05-2023 eGFR 39 mL/min/1.73 m2 Low >=59 [facility] Comment on above: Order Comment: Order added by Discern Expert. Performed By: #### 1 [id number], [id number] #### [facility] [address] [place] [address] Formson 05-22-2023 Forms [id number] .00TIFF Normal [facility] Physician Referralon 023 Physician Referral [id number] .00TIFF Normal [facility] Screenson 05-22-2023 Screens [id number] .00TIFF Normal [facility] Ambulatory Visit Summaryon 1 07-22-2022 Ambulatory Visit Summary CHACHO EDWARDS :1945 Visit Date:05/21/2023 Ambulatory Visit Instructions Your Diagnosis Recurrent UTI Urge incontinence Tests Performed Urnls Dip Stick Auto w/o Microscopy POC [id number] Your Care Team Attending Physician - Radha Farias MD Primary Care Physician - Lani Méndez DO Referring Physician - Lani Méndez DO This Is Your Medications List estradiol topical (Estrace 0.1 mg/g Cream) mirabegron (Myrbetriq 50 mg oral tablet, extended release) Contact prescribing physician if questions or concerns acetaminophen (Tylenol 8 HR Arthritis Pain 650 mg oral tablet, extended release) acetaminophen-oxycodo ne (acetaminophen-oxycod one 325 mg-5 mg Tab) aspirin (aspirin 81 mg Oral EC Tab) atenolol (atenolol 50 mg Tab) atorvastatin (atorvastatin 80 mg Tab) gabapentin (gabapentin 600 mg Tab) hydrochlorothiazide (hydrochlorothiazide 25 mg Tab) insulin lispro-insulin lispro protamine (Humalog Mix 75/25 KwikPen) levetiracetam (Keppra 750 mg oral tablet) liraglutide (Victoza) lisinopril (lisinopril 20 mg Tab) omeprazole oxycodone (oxyCODONE 5 mg Tab) oxycodone (oxyCODONE 5 mg Tab) Procedures Performed Peripheral neurostimulator (01/10/2023), Implantation of neurostimulator in spine (03/09/2021), Injection of sacroiliac joint (09/15/2020), Injection of nerve root of lumbar spine using fluoroscopic guidance (04/28/2020), Decompression of lumbar spine (12/02/2019), MRI (03/19/2019), Arthroscopy of knee (03/13/2019), Injection of sacroiliac joint using fluoroscopic guidance (10/09/2018), Epidural injection of lumbar spine using fluoroscopic guidance (08/07/2018), Epidural injection of lumbar spine using fluoroscopic guidance (04/17/2018), Injection of sacroiliac joint using fluoroscopic guidance (02/20/2018), Transforaminal Epidural Steriod Injection bilateral L3 (11/21/2017), Supartz injection right knee #5 (09/06/2017), Supartz injection right knee #4 (08/02/2017), Supartz injection right knee #3 (07/19/2017), Radiofrequency ablation of medial branch of lumbar nerve using fluoroscopic guidance (07/11/2017), Injection of knee joint (07/05/2017), Supartz Injection to Right knee (06/21/2017), Injection into facet joint of lumbar spine using fluoroscopic guidance (09/27/2016), bilateral lumbar facet injections l3-s1 (08/09/2016), Bilateral Radio frequency sacroiliac ablation S1-3, Bladder augmentation, Cataract extraction and insertion of intraocular lens, Cholecystectomy, DVT (deep venous thrombosis)....., Injection of sacroiliac joint using fluoroscopic guidance, Liposuction, Supartz right knee, Tubal ligation. Discharge Vitals Heart Rate (Peripheral) 78 Respiratory Rate 16 Blood Pressure 145/107 Height 163 cm Height 64 in Weight 122.5 kg Weight 269.5 lb BMI 46.11 What to do next Scheduled Follow-Up Appointments Sunday 1:00 PM EST With: Jarrett VELASQUEZ, Radha Kirkpatrick Where: [facility] Patient Educationon 05-21-20 Patient Education Obstetrics and Gynecology Urinary Tract Infection, Adult A urinary tract infection (UTI) is an infection of any part of the urinary tract. The urinary tract includes the kidneys, ureters, bladder, and urethra. These organs make, store, and get rid of urine in the body. An upper UTI affects the ureters and kidneys. A lower UTI affects the bladder and urethra. What are the causes? Most urinary tract infections are caused by bacteria in your genital area around your urethra, where urine leaves your body. These bacteria grow and cause inflammation of your urinary tract. What increases the risk? You are more likely to develop this condition if: ? You have a urinary catheter that stays in place. ? You are not able to control when you urinate or have a bowel movement (incontinence). ? You are female and you: ? Use a spermicide or diaphragm for control. ? Have low estrogen levels. ? Are . ? You have certain genes that increase your risk. ? You are sexually active. ? You take antibiotic medicines. ? You have a condition that causes your flow of urine to slow down, such as: ? An enlarged prostate, if you are male. ? Blockage in your urethra. ? A kidney stone. ? A nerve condition that affects your bladder control (neurogenic bladder). ? Not getting enough to drink, or not urinating often. ? You have certain medical conditions, such as: ? Diabetes. ? A weak disease-fighting system (immunesystem). ? Sickle cell disease. ? Gout. ? Spinal cord injury. What are the signs or symptoms? Symptoms of this condition include: ? Needing to urinate right away (urgency). ? Frequent urination. This may include small amounts of urine each time you urinate. ? Pain or burning with urination. ? Blood in the urine. ? Urine that smells bad or unusual. ? Trouble urinating. ? Cloudy urine. ? Vaginal discharge, if you are female. ? Pain in the abdomen or the lower back. You may also have: ? Vomiting or a decreased appetite. ? Confusion. ? Irritability or tiredness. ? A fever or chills. ? Diarrhea. The first symptom in older adults may be confusion. In some cases, they may not have any symptoms until the infection has worsened. How is this diagnosed? This condition is diagnosed based on your medical history and a physical exam. You may also have other tests, including: ? Urine tests. ? Blood tests. ? Tests for STIs (sexually transmitted infections). If you have had more than one UTI, a cystoscopy or imaging studies may be done to determine the cause of the infections. How is this treated? Treatment for this condition includes: ? Antibiotic medicine. ? Ffyh-qff-yztxdan medicines to treat discomfort. ? Drinking enough water to stay hydrated. If you have frequent infections or have other conditions such as a kidney stone, you may need to see a health care provider who specializes in the urinary tract (urologist). In rare cases, urinary tract infections can cause sepsis. Sepsis is a life-threatening condition that occurs when the body responds to an infection. Sepsis is treated in the hospital with IV antibiotics, fluids, and other medicines. Follow these instructions at home: Medicines ? Take apwh-ogv-efvllph and prescription medicines only as told by your health care provider. ? If you were prescribed an antibiotic medicine, take it as told by your health care provider. Do not stop using the antibiotic even if you start to feel better. General instructions ? Make sure you: ? Empty your bladder often and completely. Do not hold urine for long periods of time. ? Empty your bladder after sex. ? Wipe from front to back after urinating or having a bowel movement if you are female. Use each tissue only one time when you wipe. ? Drink enough fluid to keep your urine pale yellow. ? Keep all follow-up visits. This is important. Contact a health care provider if: ? Your symptoms do not get better after 1?2 days. ? Your symptoms go away and then return. Get help right away if: ? You have severe pain in your back or your lower abdomen. ? You have a fever or chills. ? You have nausea or vomiting. Summary ? A urinary tract infection (UTI) is an infection of any part of the urinary tract, which includes the kidneys, ureters, bladder, and urethra. ? Most urinary tract infections are caused by bacteria in your genital area. ? Treatment for this condition often includes antibiotic medicines. ? If you were prescribed an antibiotic medicine, take it as told by your health care provider. Do not stop using the antibiotic even if you start to feel better. ? Keep all follow-up visits. This is important. This information is not intended to replace advice given to you by your health care provider. Make sure you discuss any questions you have with your health care provider. Document Revised: 01/14/2021 Document Revie (more content not included)... Normal [facility] Urology Office/Clinic Noteon 05-21-2023 Urology Office/Clinic Note Chief Complaint New Pt. HPI Staff 78 year old female new patient for acute cystitis without hematuria. Last UTI was in December and was given Cipro. PVR 0mL Dysuria:Pt. states only with UTI Incomplete bladder emptying: no Hematuria:UA show trace today, Pt. states she only will see gross hematuria when she has a UTI Frequency:at least once an hour Urgency: yes Nocturia:4x's, Pt. states she will have a good stream Stream:Pt. states most of the will have a weak Post void dripping:no Wearing pads/ Depends:yes Urge incontinence:yes Stress incontinence:yes Incontinence without Sensory Awareness:occasionall y Abdominal pain:no Flank pain:no History of Present Illness Tests reviewed: reviewed UA and external records including labs, cultures, notes I have reviewed the previous health record information and history for this patient from external provider. I have reviewed and verified the staff HPI to be accurate for this encounter. There have been no associated fever, chills, flank pain, or blood in the urine. Review of Systems PHQ Score Initial Depression Screen Score: 0 SCORE ROS - Provider Constitutional: denies weight loss, denies hot flashes. Eyes: denies eye problems. Gastrointestinal: denies nausea, denies vomiting. Cardiovascular: denies chest pain or angina. Integumentary: no dryness Musculoskeletal: denies musculoskeletal symptoms. ENMT: denies otolaryngeal symptoms. Respiratory: no shortness of breath. Heme/Lymph: denies easy bleeding tendency, denies easy bruising tendency. Psychiatric: no confusion, no anxiety. Genitourinary: See HPI. Physical Exam Vitals & Measurements HR: 78(Peripheral) RR: 16 BP: 145/107 HT: 64 in HT: 163 cm WT: 122.5 kg WT: 269.5 lb BMI: 46.11 General Appearance: alert , no acute distress, well nourished, well developed female. Head: normocephalic . Eyes: normal orbit and globe. ENMT: normal examination of external ears. Chest: symmetric chest rise, respirations non labored . Cardiovascular: regular rate and rhythm. Abdomen: soft , non distended, no tenderness Genitourinary: bladder nonpalpable, no flank tenderness. Skin: warm, dry, no bruising. Psychiatric: cooperative, affect appropriate for age, normal judgement, euthymic mood. Assessment/Plan 78 [address] female referred by Dr. Méndez due to acute cystitis without hematuria. 1. Recurrent UTI (N39.0: Urinary tract infection, site not specified) Ucx: 06/23/22 - >100k E coli, pansensitive 09/02/22 - >100k E coli, R ampicillin and Unasyn 09/26/22 - >100k E coli, R ampicillin and Unasyn 12/04/22 - >100k E coli, R ampicillin and Bactrim, I to Unasyn and tobramycin 12/31/22 - 20k e coli, 5k mixed skin [place] [facility] [place] w/ complaints of burning, bleeding, pain and urinary frequency. Pt was recently tx'd for UTI with Augmentin. Has been hospitalized due to UTIs due to AMS. Pt states she usually has difficulty treating infections. Unable to take Bactrim due to arm swelling and itching. Denies hx of kidney stones. Typical sx of UTI: dysuria. Only has noticed gross hematuria associated with UTIs Long hx of UTIs, however did not appear to have them lifelong/earlier years. States she used to have Cipro on hand and would take once sx started. Diabetic w/ polyneuropathy, latest A1c 6.0 06/2022 Unsure if she had any prior abdominal surgeries, believed she had a prolapsed bladder repair in the past. No longer having sx of prolapse. UA today trace-intact blood, + nitrates and small leuks. Asx currently. 10% of women over the age of 60 will have recurrent urinary tract infection - 2 or more urinary tract infection in 6 months or 3 or more per year. We discussed the presence of vaginal atrophy on physical examination. I explained the lack of estrogen secondary to menopause causes changes in the vaginal epithelium that can predispose to lower urinary tract symptoms, vaginal discomfort, urinary incontinence, dyspareunia, and recurrent urinary tract infections. Because of these changes to the vaginal tissues the lactobacilli (good bacteria) fail to thrive. The pH of the vagina rises making it easier for harmful bacteria to colonize the vagina. -Tight DM control -Increase water intake -Start topical estrace cream 0.1 mg/g x 3/week for 1 month, then twice a week for maintenance, script sent to pharm on file. Risks and benefits discussed -Cranberry pills, add D-Mannose (try to avoid due to diabetes) or probiotics if needed -CT, cysto if UTIs persist -Follow up in 2 months 2. Urge incontinence (N39.41: Urge incontinence) BBS 22 PVR 0 cc Discussed risk and benefits of conservative management, PFPT +/- therapist, medication management, procedures in the future. Pt wishes for home pelvic floor exercises and to trial a medication due to leakage being bothersome. Will start Myrbetriq based off insurance coverage. Pt understands it may be cost prohibitive. Counseled pt on anticholinergics with associated SEs which (more content not included)... Normal [facility] Comment on above: Result Comment: Elec tronically Signed By: Jarrett VELASQUEZ, Radha Kirkpatrick\.br\Date and Time Signed: 05/21/23 18:53 EST\.br\Electronically Co-Signed By: Jacqueline Saleh\.br\Date and Time Co-Signed: 05/21/23 14:11 EST\.br\Electronically Co-Signed By: Jacqueline Saleh\.br\Date and Time Co-Signed: 05/21/23 14:16 EST\.br\Electronically Co-Signed By: Jacqueline Saleh\.br\Date and Time Co-Signed: 05/21/23 14:28 EST OT - Otheron 04-06-2023 OT - Other [id number]# 1.00TIFF Normal [facility] Consent for Procedure/Surger yon 03-15-2023 Consent for Procedure/Surgery [id number]# 1.00CD:127 Normal [facility] Discharge Instructionson Discharge Instructions [id number]# 1.00CD:127 Normal [facility] IntraOperative Documentson 0 03-15-2023 IntraOperative Documents [id number]# 1.00CD:127 Normal [facility] Capillary Glucose POCon 02-17 Glucose [Mass/Vol] 147 mg/dL High 55-99 [facility] Comment on above: Performed By: #### 2 [id number] #### [facility] [address] [place] [address] Consent for Treatmenton 02-17 Consent for Treatment [id number]# 1.00CD:127 Normal [facility] Main OR Intraoperative Recor don 03-14-2023 Main OR Intraoperative Record IntraOp Document Type FTPM Summary Primary Physician: Esteban Francois DO Finalized Date/Time: 03/14/23 13:59:31 Pt. Name: CHACHO EDWARDS Ayo Tobias/Sex: 1945 Female Med Rec #: [id number] Physician: Esteban Francois DO Financial #: [id number] Pt. Type: P Room/Bed: / Admit/Disch: 03/14/23 13:00:35 - Institution: Case Times FTPM Entry 1 Patient Times In Room 03/14/23 13:50:00 Out Room 03/14/23 14:00:00 Procedure Times Start 03/14/23 13:53:00 Stop 03/14/23 13:59:00 Anesthesia Times Last Modified By: Linnette Gar RN 03/14/23 13:59:24 Case Attendance FTPM Entry 1 Entry 2 Entry 3 Case Attendee Esteban Francois DO, RN, Linnette Rosa RN, Tracy Foy Role Performed Surgeon - Primary Head Girls Golf Coach - Primary Scrub - Primary Time In 03/14/23 13:50:00 03/14/23 13:50:00 03/14/23 13:50:00 Time Out 03/14/23 14:00:00 03/14/23 14:00:00 03/14/23 14:00:00 Procedure SACROILIAC JOINT SACROILIAC JOINT SACROILIAC JOINT INJECTION(Bilateral) INJECTION(Bilateral) INJECTION(Bilateral) Comments Last Modified By: Cong WILSON, Linnette Gar RN, Linnette Wang RN 03/14/23 13:59:27 03/14/23 13:59:27 03/14/23 13:59:27 Entry 4 Case Attendee Sophie Hendricks Role Performed Senior Tableau Developer Time In 03/14/23 13:50:00 Time Out 03/14/23 14:00:00 Procedure SACROILIAC JOINT INJECTION(Bilateral) Comments Last Modified By: Linnette Gar RN 03/14/23 13:59:27 Perioperative Protocols FTPM Pre-Care Text: Implements protective measures prior to operative or invasive procedure, confirms identity before the operative or invasive procedure, verifies operative procedure, surgical site, and laterality Entry 1 Procedure(s) SACROILIAC JOINT Patient Identity Birthday, ID Band INJECTION(Bilateral) Verified (select at Check, Patient least 2): Participation Consents / H and P HandP, Surgery/Procedure Operative Site Present Verified Consent Marking Verified Surgical Site Yes Laterality Verified Yes Verified Procedure Verified Yes Correct Patient Yes Position Verified Availability Equipment, Medication, Prep Dry Yes Verified (If X-ray Applicable) PreOp Antibiotic No Time Out Linnette Gar RN, Given Participants Moe WILSON, Alessandro Mcclain DO, Bradford A., Ott, Amy Time Out Complete 03/14/23 13:50:00 Outcomes Met? Yes Last Modified By: Linnette Gar RN 03/14/23 13:50:54 Post-Care Text: The patient is free from signs and symptoms of injury caused by extraneous objects Allergy Information FTPM Pre-Care Text: Verifies allergies Entry 1 Allergies Reviewed? Yes Allergies Reviewed Self/Patient With Outcomes Met? Yes Last Modified By: Linnette Gar RN 03/14/23 13:51:10 Post-Care Text: The patient received appropriate medication(s) safely administered during the perioperative period Surgical Procedures FTPM Entry 1 Procedure Description Procedure SACROILIAC JOINT Modifiers Bilateral INJECTION Surgeon Description SIJI Primary Procedure Yes Primary Surgeon Esteban Francois DO Start 03/14/23 13:53:00 Stop 03/14/23 13:59:00 Anesthesia Type None Surgical Service Pain Management Wound Class 1 - Clean Last Modified By: Linnette Gar RN 03/14/23 13:59:29 General Case Data FTPM Pre-Care Text: Classifies surgical wound, implements aseptic technique, initiates traffic control Entry 1 Case Information OR Pain Proc Room Case Level Level 2 Wound Class 1 - Clean Specialty Pain Management Preop Diagnosis M53.3, M46.1 Postop Same As Preop Yes Postop Diagnosis M53.3, M46.1 Outcomes Met? Yes Last Modified By: Linnette Gar RN 03/14/23 13:51:21 Post-Care Text: The patient is free from signs and symptoms of infection Skin Assessment (Pre Procedure) FTPM Pre-Care Text: Implements protective measures to prevent skin/ tissue injury due to thermal or mechanical sources Evaluates for signs and symptoms of physical injury to skin and tissue Entry 1 Skin Integrity Intact, [place], Warm, and Skin Abnormality No Dry Outcomes Met? Yes Last Modified By: Linnette Gar RN 03/14/23 13:51:39 Post-Care Text: The patient is free from signs and symptoms of injury caused by extraneous objects Patient Positioning FTPM Pre-Care Text: Identifies physical alterations that require additional precautions for procedure-specific positioning, verifies presence of prosthetics or corrective devices, positions the patient, evaluates the patient for signs and symptoms of injury as a result of positioning Entry 1 Procedure SACROILIAC JOINT Body Position Prone INJECTION(Bilateral) Feet Uncrossed? Yes Left Arm Position Resting at Side Right Arm Position Resting at Side Left Leg Position Extended Right Leg Position Extended Positioning Device Pillow Under Head Large, Safety Strap, Pillow Large Under Knees Press Points Checked Yes By Linnette Gar RN Outcomes Met? Yes Last Modified By: Cong (more content not included)... Normal [facility] Main OR Preoperative Recordo n 03-14-2023 Main OR Preoperative Record Holding Area Document Type FTPM Summary Primary Physician: Esteban Francois DO Finalized Date/Time: 03/14/23 13:10:52 Pt. Name: CHACHO EDWARDS/Sex: 1945 Female Med Rec #: [id number] Physician: Esteban Francois DO Financial #: [id number] Pt. Type: P Room/Bed: / Admit/Disch: 03/14/23 13:00:35 - Institution: Case Times Holding FTPM Pre-Care Text: Verifies consent for planned procedure, identifies individual values and wishes concerning care, includes family members in perioperative teaching Secures patient's records' belongings, and valuables, maintains patient's dignity and privacy, and maintains patient confidentiality Entry 1 In Holding 03/14/23 13:08:00 Outcomes Met? Yes Last Modified By: Tiffany Feliciano RN 03/14/23 13:08:51 Post-Care Text: The patient participates in decisions affecting his or her perioperative plan of care The patient's right to privacy is maintained Surgery Checklist FTPM Entry 1 Patient Birthday, ID Band Procedure History and Physical, Identification: Check, Patient Verification: Surgical Consent, With Participation Patient NPO after Midnight: n/a Date/Time: 03/14/23 07:00:00 Results Reviewed toast and coffee Personal Items: Cataract Lens Implant, Comments: Glasses, Jewelry Personal Items one pair of earrings, Complaints of Pain: Yes Comment: watch, one ring, one necklace, right cataract surgery Pain Comment: 02/25 to lower back Operative Site Yes Marking: Marked By: operative site marked Location: bilateral sij by Dr. Francois Availability Equipment, X-Ray Verified: Does Patient Smoke No Patient states Yes Comment - Adult Lazara-sister in law postop adult Supervision supervision available Case Cancelled in No Holding Area see comments below for reason Last Modified By: Tiffany Feliciano RN 03/14/23 13:10:46 Finalized By: Tiffany Feliciano RN Document Signatures Signed By: Tiffany Feliciano RN 03/14/23 13:10 Normal [facility] Patient Correspondenceon Patient Correspondence [id number]# 1.00CD:127 [facility] Consent for Treatmenton 02-16 Consent for Treatment [id number]# 1.00CD:127 Normal [facility] Consultation Noteon 03-02-20 Consultation Note Patient: RAHUL EDWARDS Age: 77 years Sex: Female : 1945 Associated Diagnoses: None Author: Mirna Bryant PA-C Subjective Chief complaint 03/02/2023 11:22 EDT Lower back pain . Patient is a 77-year-old female. She states that since undergoing the explant things have overall remained fairly stable. She has some bilateral buttock pain she also has some bilateral knee pain. She is getting ready to have her knees addressed by somebody else but she is here today to once again discuss her bilateral buttock pain. It is a stabbing type discomfort. It affects her ability to walk and stand for any sort of distance. Patient states that when the buttock pain starts she has to rest to try to get it to resolve. She rates it a 5/10. She is gabapentin 1200 mg twice daily with some improvement not quite enough. She has a history of injections with improvement but it has been a long time since she had 1 done. She is here today to further discuss this as she states that the back/buttock pain is what is her rate limiting factor at this time and she wants to get it addressed. Health Status Allergies: Allergic Reactions (Selected) Moderate Reglan- Itching and swelling. Severity Not Documented Bactrim- Edema. Biaxin- Itching. Lyrica- Swelling. Sulfa drugs- Itching., Allergies (5) Active Reaction Reglan Swelling Bactrim edema Biaxin itching Lyrica swelling sulfa drugs itching Current medications: (Selected) Prescriptions Prescribed Keppra 750 mg oral tablet: 750 mg = 1 tab(s), Oral, BID, # 60 tab(s), Refills(s) 0, Pharmacy: [facility], 163, cm, 06/23/22 7:22:00 EST, Height/Length Dosing, 130.4, kg, 06/23/22 7:22:00 EST, Weight Dosing aspirin 81 mg Oral EC Tab: 81 mg = 1 tab(s), Oral, Daily, # 30 tab(s), Refills(s) 0, Pharmacy: [facility], 163, cm, 06/23/22 7:22:00 EST, Height/Length Dosing, 130.4, kg, 06/23/22 7:22:00 EST, Weight Dosing atorvastatin 80 mg Tab: 80 mg = 1 tab(s), Oral, Daily, # 30 tab(s), Refills(s) 0, Pharmacy: [facility], 163, cm, 06/23/22 7:22:00 EST, Height/Length Dosing, 130.4, kg, 06/23/22 7:22:00 EST, Weight Dosing gabapentin 600 mg Tab: 1,200 mg = 2 tab(s), Oral, BID, X 90 day(s), # 360 tab(s), Refills(s) 0, Pharmacy: [facility], 162, cm, 03/02/23 11:42:00 EDT, Height/Length Dosing, 131, kg, 12/31/22 22:40:00 EDT, Weight Dosing oxyCODONE 5 mg Tab: 5 mg = 1 tab(s), Oral, q6hr, PRN for pain, # 20 tab(s), Refills(s) 0, Pharmacy: [facility], 162, cm, 01/10/23 7:41:00 EDT, Height/Length Dosing, 131, kg, 12/31/22 22:40:00 EDT, Weight Dosing Documented Medications Documented Humalog Mix 75/25 KwikPen: See Instructions, Refill(s) 0, 25 units Breakfast, 35 units Supper Tylenol 8 HR Arthritis Pain 650 mg oral tablet, extended release: 1,300 mg = 2 tab(s), Oral, q8hr, PRN Pain, Refills(s) 0, Pain Victoza: 1.8 mg, SubCutaneous, Daily, Refills(s) 0, Blood glucose atenolol 50 mg Tab: 50 mg = 1 tab(s), Oral, Bedtime, Refills(s) 0, High blood pressure hydrochlorothiazide 25 mg Tab: Refills(s) 0 lisinopril 20 mg Tab: 20 mg = 1 tab(s), Oral, Daily, Refills(s) 0, High blood pressure omeprazole: 40 mg, Oral, Daily, Refills(s) 0, Control of stomach acid oxyCODONE 5 mg Tab: 2.5 mg = 0.5 tab(s), Oral, BID, PRN pain, Refills(s) 0 Problem list: All Problems Acid reflux / SNOMED CT 560735360 / Confirmed Generalized osteoarthritis / SNOMED CT 145235251 / Confirmed History of deep vein thrombosis / SNOMED CT 2210118399 / Confirmed left leg Blind left eye / SNOMED CT 718130600 / Confirmed Arthritis / SNOMED CT 2300157 / Confirmed History of obesity / SNOMED CT 2522870164 / Confirmed Hemiplegia of left nondominant side as late effect of cerebral infarction / SNOMED CT 7412257050 / Confirmed Hemianopia, homonymous, left / SNOMED CT 17702577 / Confirmed Diabetes mellitus with polyneuropathy / SNOMED CT 3884955286 / Confirmed DJD (degenerative joint disease) of knee / SNOMED CT 776948134 / Confirmed Lumbosacral radiculopathy / SNOMED CT 5789511 / Confirmed Seizure disorder, focal motor / SNOMED CT 441871542 / Confirmed Chronic kidney disease due to diabetes mellitus / SNOMED CT 3900080638 / Confirmed Chronic kidney disease, stage 3b / SNOMED CT 4736586542 / Confirmed History of CVA (cerebrovascular accident) without residual deficits / SNOMED CT 4831850101 / Confirmed Resolved: Fracture / SNOMED CT 260067361 L ulnar styloid fx with routine healing, Pain/paresthesia R hand Resolved: At risk for falls / SNOMED CT 658730906 Problem added when Risk for Falls Careplan was initiated. Resolved due to patient discharge. Resolved: At Risk For Unstable Blood Glucose Level / IMO 7385703 Problem added due to documentation that the patient has diabetes. Resolved due to patient discharge. Resolved: At risk for falls / SNOMED CT 857333564 Problem added when Risk for Falls Careplan was initiated. Resolved due to patient di (more content not included)... [facility] Comment on above: Result Comment: Elec tronically Signed By: Mirna Bryant PA-C\.br\Date and Time Signed: 03/02/23 11:50 EDT\.br\Electronically Co-Signed By: Esteban Francois DO\.br\Date and Time Co-Signed: 03/06/23 12:51 EDT Office/Clinic Note-Physician on 03-02-2023 Office/Clinic Note-Physician [id number]# 1.00CD:127 [facility] Patient Correspondenceon Patient Correspondence [id number]# 1.00CD:127 [facility] Patient Correspondence [id number]# 1.00CD:127 [facility] Patient History Officeon Patient History Office [id number]# 1.00CD:127 [facility] HIPAA Forms Officeon 023 HIPAA Forms Office [id number]#1 .00CD:127 [facility] PT - Consentson 02-14-2023 PT - Consents [id number]#1 .00CD:127 [facility] Consent for Treatmenton 01-16 Consent for Treatment [id number]#1 .00CD:127 Normal [facility] OT - Orderson 01-25-2023 OT - Orders [id number]# 1.00CD:127 Normal [facility] Outside Recordson 01-25-2023 Outside Records [id number]# 1.00CD:127 Normal [facility] Consent for Treatmenton Consent for Treatment [id number]# 1.00CD:127 Normal [facility] Consultation Noteon 01-20-20 Consultation Note Patient: RAHUL EDWARDS Age: 77 years Sex: Female : 1945 Associated Diagnoses: None Author: Mirna Bryant PA-C Subjective Chief complaint 01/19/2023 9:14 EDT Lower back and bilateral knee pain . Patient is a 77-year-old female. She presents today for follow-up after undergoing an explant of her spinal cord stimulator battery. The paddle lead is still in place. She had this done on 01/10/2023. She states that things are overall going fairly well. She is showering but she states that things are going well with her wound. She still has some lower back/buttock pain that she rates a 6/10 as well as some numbness and tingling in her lower legs but she states at this time, she does not want to do anything differently. She does not want have any injections. She wants to just continue to give herself some time to recover and I feel this is very appropriate. At this time she is using gabapentin 1200 mg twice daily. She tolerates this well. It also helps her. Health Status Allergies: Allergic Reactions (Selected) Moderate Reglan- Itching and swelling. Severity Not Documented Bactrim- Edema. Biaxin- Itching. Lyrica- Swelling. Sulfa drugs- Itching., Allergies (5) Active Reaction Reglan Swelling Bactrim edema Biaxin itching Lyrica swelling sulfa drugs itching Current medications: (Selected) Prescriptions Prescribed Keppra 750 mg oral tablet: 750 mg = 1 tab(s), Oral, BID, # 60 tab(s), Refills(s) 0, Pharmacy: [place] [address], 163, cm, 06/23/22 7:22:00 EST, Height/Length Dosing, 130.4, kg, 06/23/22 7:22:00 EST, Weight Dosing aspirin 81 mg Oral EC Tab: 81 mg = 1 tab(s), Oral, Daily, # 30 tab(s), Refills(s) 0, Pharmacy: [place] [address], 163, cm, 06/23/22 7:22:00 EST, Height/Length Dosing, 130.4, kg, 06/23/22 7:22:00 EST, Weight Dosing atorvastatin 80 mg Tab: 80 mg = 1 tab(s), Oral, Daily, # 30 tab(s), Refills(s) 0, Pharmacy: [facility], 163, cm, 06/23/22 7:22:00 EST, Height/Length Dosing, 130.4, kg, 06/23/22 7:22:00 EST, Weight Dosing gabapentin 600 mg Tab: 1,200 mg = 2 tab(s), Oral, BID, X 90 day(s), # 360 tab(s), Refills(s) 0, Pharmacy: [facility], 162, cm, 12/06/22 11:37:00 EDT, Height/Length Dosing, 131.1, kg, 12/06/22 11:37:00 EDT, Weight Dosing oxyCODONE 5 mg Tab: 5 mg = 1 tab(s), Oral, q6hr, PRN for pain, # 20 tab(s), Refills(s) 0, Pharmacy: [facility], 162, cm, 01/10/23 7:41:00 EDT, Height/Length Dosing, 131, kg, 12/31/22 22:40:00 EDT, Weight Dosing Documented Medications Documented Humalog Mix 75/25 KwikPen: See Instructions, Refill(s) 0, 25 units Breakfast, 35 units Supper Tylenol 8 HR Arthritis Pain 650 mg oral tablet, extended release: 1,300 mg = 2 tab(s), Oral, q8hr, PRN Pain, Refills(s) 0, Pain Victoza: 1.8 mg, SubCutaneous, Daily, Refills(s) 0, Blood glucose atenolol 50 mg Tab: 50 mg = 1 tab(s), Oral, Bedtime, Refills(s) 0, High blood pressure hydrochlorothiazide 25 mg Tab: Refills(s) 0 lisinopril 20 mg Tab: 20 mg = 1 tab(s), Oral, Daily, Refills(s) 0, High blood pressure omeprazole: 40 mg, Oral, Daily, Refills(s) 0, Control of stomach acid oxyCODONE 5 mg Tab: 2.5 mg = 0.5 tab(s), Oral, BID, PRN pain, Refills(s) 0 Problem list: All Problems Acid reflux / SNOMED CT 299148347 / Confirmed Generalized osteoarthritis / SNOMED CT 454735933 / Confirmed History of deep vein thrombosis / SNOMED CT 6330400140 / Confirmed left leg Blind left eye / SNOMED CT 011651086 / Confirmed Arthritis / SNOMED CT 5603690 / Confirmed History of obesity / SNOMED CT 9855206137 / Confirmed Hemiplegia of left nondominant side as late effect of cerebral infarction / SNOMED CT 2010887535 / Confirmed Hemianopia, homonymous, left / SNOMED CT 92373794 / Confirmed Diabetes mellitus with polyneuropathy / SNOMED CT 9134607838 / Confirmed DJD (degenerative joint disease) of knee / SNOMED CT 536367458 / Confirmed Lumbosacral radiculopathy / SNOMED CT 6359693 / Confirmed Seizure disorder, focal motor / SNOMED CT 941761242 / Confirmed Chronic kidney disease due to diabetes mellitus / SNOMED CT 1314423588 / Confirmed Chronic kidney disease, stage 3b / SNOMED CT 7136681299 / Confirmed History of CVA (cerebrovascular accident) without residual deficits / SNOMED CT 7188239630 / Confirmed Resolved: Fracture / SNOMED CT 563364875 L ulnar styloid fx with routine healing, Pain/paresthesia R hand Resolved: At risk for falls / SNOMED CT 668691239 Problem added when Risk for Falls Careplan was initiated. Resolved due to patient discharge. Resolved: At Risk For Unstable Blood Glucose Level / IMO 1612448 Problem added due to documentation that the patient has diabetes. Resolved due to patient discharge. Resolved: At risk for falls / SNOMED CT 171161735 Problem added when Risk for Falls Careplan was initiated. Resolved due to patient discharge. Resolved: DVT - Deep vein thrombosis / SNOMED CT 2455238268 leg Canceled: At Risk For Unstable (more content not included)... Normal [facility] Comment on above: Result Comment: Elec tronically Signed By: Mirna Bryant PA-C\.br\Date and Time Signed: 01/19/23 09:42 EDT\.br\Electronically Co-Signed By: Dustin Gonzales MD\.br\Date and Time Co-Signed: 01/19/23 19:50 EDT Office/Clinic Note-Physician on 01-19-2023 Office/Clinic Note-Physician [id number]# 1.00CD:127 [facility] Patient Correspondenceon Patient Correspondence [id number]# 1.00CD:127 [facility] Patient Correspondence [id number]# 1.00CD:127 [facility] Patient History Officeon Patient History Office [id number]# 1.00CD:127 [facility] CHEMISTRYOrdered By: Lab ROP User on 01-10-2023 Glucose [Mass/Vol] 114 mg/dL High 55 - 99 mg/dL [facility] [place] Subsection POC Device SN [id number] Invalid Interpretation Code [facility] Subsection POC User ID [id number] Invalid Interpretation Code [facility] Subsection POC Username STEFANO FRANCO Invalid Interpretation Code [facility] [place] [facility] Subsection Capillary Glucose POCon 12-17 Glucose [Mass/Vol] 114 mg/dL High 55-99 [facility] Comment on above: Performed By: #### 2 [id number] ####[facility] [id number] [place] [address] Consent for Anesthesiaon Consent for Anesthesia [id number] .00CD:127 [facility] Consent for Procedure/Surger yon 01-10-2023 Consent for Procedure/Surgery [id number] .00CD:127 [facility] Consent for Treatmenton 12-17 Consent for Treatment [id number]# 1.00CD:127 [facility] Discharge Instructionson Discharge Instructions [id number] .00CD:127 [facility] IntraOperative Documentson 0 01-10-2023 IntraOperative Documents [id number]# 1.00CD:127 [facility] IntraOperative Documents [id number] .00CD:127 [facility] Main OR Intraoperative Recor don 01-10-2023 Main OR Intraoperative Record IntraOp Document Type FTPM Summary Primary Physician: Dustin Gonzales MD Finalized Date/Time: 01/10/23 09:38:47 Pt. Name: CHACHO EDWARDS/Sex: 1945 Female Med Rec #: [id number] Physician: Dustin Gonzales MD Financial #: [id number] Pt. Type: P Room/Bed: / Admit/Disch: 01/10/23 06:58:32 - Institution: Case Times FTPM Entry 1 Patient Times In Room 01/10/23 08:21:00 Out Room 01/10/23 09:00:00 Procedure Times Start 01/10/23 08:35:00 Stop 01/10/23 08:56:00 Anesthesia Times Start 01/10/23 08:21:00 Stop 01/10/23 09:00:00 Last Modified By: Moe WILSON, Trayc Foy 01/10/23 09:03:16 Case Attendance FTPM Entry 1 Entry 2 Entry 3 Case Attendee Darius BENITES, Kyle Gonzales MD, Dustin Rosa RN, Tracy Foy Role Performed Anesthesiologist Surgeon - Primary Head Girls Golf Coach - Primary Chief Nurse Time In 01/10/23 08:21:00 01/10/23 08:21:00 01/10/23 08:21:00 Time Out 01/10/23 09:00:00 01/10/23 09:00:00 01/10/23 09:00:00 Procedure SPINAL CORD STIMULATOR SPINAL CORD STIMULATOR SPINAL CORD STIMULATOR IMPLANT(.) IMPLANT(.) IMPLANT(.) Comments Florian- Biomode - Biomolecular Determination Last Modified By: Moe RN, Tracy Rosa RN, Tracy Rosa RN, Tracy Foy 01/10/23 09:03:17 01/10/23 09:11:43 01/10/23 09:03:17 Entry 4 Entry 5 Entry 6 Case Attendee Edison WILSON, Sade Jones, Pam Guevara Jr., DO, Yong Zamorano Role Performed Scrub - Primary Senior Tableau Developer Anesthesiologist of Record Time In 01/10/23 08:21:00 01/10/23 08:21:00 01/10/23 08:21:00 Time Out 01/10/23 09:00:00 01/10/23 09:00:00 01/10/23 09:00:00 Procedure SPINAL CORD STIMULATOR SPINAL CORD STIMULATOR SPINAL CORD STIMULATOR IMPLANT(.) IMPLANT(.) IMPLANT(.) Comments Last Modified By: Moe RN, Tracy Rosa RN, Tracy Rosa RN, Tracy Foy 01/10/23 09:03:17 01/10/23 09:03:17 01/10/23 09:03:17 Perioperative Protocols FTPM Pre-Care Text: Implements protective measures prior to operative or invasive procedure, confirms identity before the operative or invasive procedure, verifies operative procedure, surgical site, and laterality Entry 1 Procedure(s) SPINAL CORD STIMULATOR Patient Identity Birthday, ID Band IMPLANT(.) Verified (select at Check, Patient least 2): Participation Consents / H and P Anesthesia Consent, Operative Site Present Verified HandP, Surgery/Procedure Marking Verified Consent Surgical Site Yes Laterality Verified Yes Verified Procedure Verified Yes Correct Patient Yes Position Verified Availability Equipment, Medication, Prep Dry Yes Verified (If X-ray Applicable) PreOp Antibiotic Yes Time Out Tracy Rosa RN, Edison WILSON, Christian Harris MD, Darius Chan, Karen Garvin Laura M Time Out Complete 01/10/23 08:28:00 Outcomes Met? Yes Last Modified By: Tracy Rosa RN 01/10/23 09:38:45 Post-Care Text: The patient is free from signs and symptoms of injury caused by extraneous objects Allergy Information FTPM Pre-Care Text: Verifies allergies Entry 1 Allergies Reviewed? Yes Allergies Reviewed Self/Patient With Outcomes Met? Yes Last Modified By: Tracy Rosa RN 01/10/23 08:28:40 Post-Care Text: The patient received appropriate medication(s) safely administered during the perioperative period Surgical Procedures FTPM Entry 1 Procedure Description Procedure SPINAL CORD STIMULATOR Modifiers . IMPLANT Surgeon Description IPG (BATTERY) REMOVAL Primary Procedure Yes Primary Surgeon Dustin Gonzales MD Start 01/10/23 08:35:00 Stop 01/10/23 08:56:00 Anesthesia Type MAC Surgical Service Pain Management Wound Class 1 - Clean Last Modified By: Tracy Rosa RN 01/10/23 09:03:18 General Case Data FTPM Pre-Care Text: Classifies surgical wound, implements aseptic technique, initiates traffic control Entry 1 Case Information OR Pain Proc Room Case Level Level 2 Wound Class 1 - Clean Specialty Pain Management ASA Class 3 Preop Diagnosis M54.17 Postop Same As Preop Yes Postop Diagnosis M54.17 Outcomes Met? Yes Last Modified By: Tracy Rosa RN 01/10/23 08:29:04 Post-Care Text: The patient is free from signs and symptoms of infection Skin Assessment (Pre Procedure) FTPM Pre-Care Text: Implements protective measures to prevent skin/ tissue injury due to thermal or mechanical sources Evaluates for signs and symptoms of physical injury to skin and tissue Entry 1 Skin Integrity Intact, [place], Warm, and Skin Abnormality No Dry Outcomes Met? Yes Last Modified By: Tracy Rosa RN 01/10/23 08:29:16 Post-Care Text: The patient is free from signs and symptoms of injury caused by extraneous objects Patient Positioning FTPM Pre-Care Text: Identifies physical alterations that require additional precautions for procedure-specific positioning, verifies presence of prosthetics or corrective devices, positions the patient, evaluat (more content not included)... Normal [facility] Main OR Preoperative Recordo n 01-10-2023 Main OR Preoperative Record Holding Area Document Type FTPM Summary Primary Physician: Dustin Gonzales MD Finalized Date/Time: 01/10/23 07:53:10 Pt. Name: CHACHO EDWARDS Ayo GalvinB./Sex: 1945 Female Med Rec #: [id number] Physician: Dustin Gonzales MD Financial #: [id number] Pt. Type: P Room/Bed: / Admit/Disch: 01/10/23 06:58:32 - Institution: Case Times Holding FTPM Pre-Care Text: Verifies consent for planned procedure, identifies individual values and wishes concerning care, includes family members in perioperative teaching Secures patient's records' belongings, and valuables, maintains patient's dignity and privacy, and maintains patient confidentiality Entry 1 In Holding 01/10/23 07:38:00 Outcomes Met? Yes Last Modified By: Soila Franco RN 01/10/23 07:38:46 Post-Care Text: The patient participates in decisions affecting his or her perioperative plan of care The patient's right to privacy is maintained Surgery Checklist FTPM Entry 1 Patient Birthday, ID Band Procedure History and Physical, Identification: Check, Patient Verification: Surgical Consent, With Participation Patient NPO after Midnight: Yes Date/Time: 01/10/23 07:38:00 Results Reviewed N/A Personal Items: Cataract Lens Implant, Comments: Glasses Personal Items Pt. has history of Complaints of Pain: Yes Comment: right cataract lens implant. Pt. wearing glasses. Pain Comment: 3/10 lower back pain Operative Site Yes Marking: Marked By: Dr. Gonzales Location: battery explant Availability Equipment, X-Ray Verified: Does Patient Smoke No Patient states Yes Comment - Adult sister in law- [facility] postop adult Supervision supervision available Case Cancelled in No Holding Area see comments below for reason Last Modified By: Soila Franco RN 01/10/23 07:43:55 Finalized By: Soila Franco RN Document Signatures Signed By: Soila Franco RN 01/10/23 07:53 Normal [facility] Progress Note-Physicianon Progress Note-Physician Patient: CHACHO EDWARDS Age: 77 years Sex: Female : 1945 Associated Diagnoses: None Author: Yong Guevara Jr., DO Postoperative Information Postoperative disposition: Postoperative disposition: To PACU. Optimetrix number: Optimetrix number [id number]. Anesthetic utilized: Monitored anesthesia care. Physical Examination Vital signs stable. Pain Assessment: Controlled. General: Awake, Alert, Appropriate. Respiratory: Adequate air exchange, Equal bilateral chest wall expansion, Non-labored. Cardiovascular: Stable, Normal peripheral perfusion. Neurological: Normal sensory function. Assessment Anesthetic outcome No anesthetic complications noted. Review / Management Condition: Stable. Plan Transfer/Discharge: Transfer/Discharge Discharge when meets criteria. Normal [facility] Comment on above: Result Comment: Elec tronically Signed By: Yong Guevara Jr., DO\.br\Date and Time Signed: 01/10/23 12:30 EDT Progress Note-Physician Patient: CHACHO EDWARDS Age: 77 years Sex: Female : 1945 Associated Diagnoses: None Author: Yong Guevara Jr., DO Preoperative Information NPO after midnight Review of Systems Eye Respiratory: Negative except as documented in history of present illness. Cardiovascular: Negative except as documented in history of present illness. Health Status Allergies: Allergic Reactions (Selected) Moderate Reglan- Itching and swelling. Severity Not Documented Bactrim- Edema. Biaxin- Itching. Lyrica- Swelling. Sulfa drugs- Itching., Allergies (5) Active Reaction Reglan Swelling Bactrim edema Biaxin itching Lyrica swelling sulfa drugs itching Current medications: (Selected) Prescriptions Prescribed Keppra 750 mg oral tablet: 750 mg = 1 tab(s), Oral, BID, # 60 tab(s), Refills(s) 0, Pharmacy: [facility], 163, cm, 06/23/22 7:22:00 EST, Height/Length Dosing, 130.4, kg, 06/23/22 7:22:00 EST, Weight Dosing aspirin 81 mg Oral EC Tab: 81 mg = 1 tab(s), Oral, Daily, # 30 tab(s), Refills(s) 0, Pharmacy: [facility], 163, cm, 06/23/22 7:22:00 EST, Height/Length Dosing, 130.4, kg, 06/23/22 7:22:00 EST, Weight Dosing atorvastatin 80 mg Tab: 80 mg = 1 tab(s), Oral, Daily, # 30 tab(s), Refills(s) 0, Pharmacy: [facility], 163, cm, 06/23/22 7:22:00 EST, Height/Length Dosing, 130.4, kg, 06/23/22 7:22:00 EST, Weight Dosing gabapentin 600 mg Tab: 1,200 mg = 2 tab(s), Oral, BID, X 90 day(s), # 360 tab(s), Refills(s) 0, Pharmacy: [facility], 162, cm, 12/06/22 11:37:00 EDT, Height/Length Dosing, 131.1, kg, 12/06/22 11:37:00 EDT, Weight Dosing Documented Medications Documented Humalog Mix 75/25 KwikPen: See Instructions, Refill(s) 0, 25 units Breakfast, 35 units Supper Tylenol 8 HR Arthritis Pain 650 mg oral tablet, extended release: 1,300 mg = 2 tab(s), Oral, q8hr, PRN Pain, Refills(s) 0, Pain Victoza: 1.8 mg, SubCutaneous, Daily, Refills(s) 0, Blood glucose atenolol 50 mg Tab: 25 mg = 0.5 tab(s), Oral, Daily, takes in am, Refills(s) 0, High blood pressure atenolol 50 mg Tab: 50 mg = 1 tab(s), Oral, Bedtime, Refills(s) 0, High blood pressure cefpodoxime 100 mg oral tablet: Refills(s) 0 hydrochlorothiazide 25 mg Tab: Refills(s) 0 lisinopril 20 mg Tab: 20 mg = 1 tab(s), Oral, Daily, Refills(s) 0, High blood pressure omeprazole: 40 mg, Oral, Daily, Refills(s) 0, Control of stomach acid oxyCODONE 5 mg Tab: 2.5 mg = 0.5 tab(s), Oral, BID, PRN pain, Refills(s) 0, Home Medications (14) Active aspirin 81 mg Oral EC Tab 81 mg = 1 tab(s), Oral, Daily atenolol 50 mg Tab 50 mg = 1 tab(s), Oral, Bedtime atenolol 50 mg Tab 25 mg = 0.5 tab(s), Oral, Daily atorvastatin 80 mg Tab 80 mg = 1 tab(s), Oral, Daily cefpodoxime 100 mg oral tablet gabapentin 600 mg Tab 1,200 mg = 2 tab(s), Oral, BID Humalog Mix 75/25 KwikPen See Instructions hydrochlorothiazide 25 mg Tab Keppra 750 mg oral tablet 750 mg = 1 tab(s), Oral, BID lisinopril 20 mg Tab 20 mg = 1 tab(s), Oral, Daily omeprazole 40 mg, Oral, Daily oxyCODONE 5 mg Tab 2.5 mg = 0.5 tab(s), PRN, Oral, BID Tylenol 8 HR Arthritis Pain 650 mg oral tablet, extended release 1,300 mg = 2 tab(s), PRN, Oral, q8hr Victoza 1.8 mg, SubCutaneous, Daily , No qualifying data available Problem list: All Problems Acid reflux / SNOMED CT 332051735 / Confirmed Arthritis / SNOMED CT 3303084 / Confirmed Blind left eye / SNOMED CT 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 / Confirmed Chronic kidney disease due to diabetes mellitus / SNOMED CT 8721581145 / Confirmed Chronic kidney disease, stage 3b / SNOMED CT 9354640093 / Confirmed Diabetes mellitus with polyneuropathy / SNOMED CT 1264877946 / Confirmed DJD (degenerative joint disease) of knee / SNOMED CT 773793842 / Confirmed Generalized osteoarthritis / SNOMED CT 379646515 / Confirmed Hemianopia, homonymous, left / SNOMED CT 09561218 / Confirmed Hemiplegia of left nondominant side as late effect of cerebral infarction / SNOMED CT 5403860627 / Confirmed History of CVA (cerebrovascular accident) without residual deficits / SNOMED CT 0288493820 / Confirmed History of deep vein thrombosis / SNOMED CT 4076716022 / Confirmed left leg History of obesity / SNOMED CT 4302322536 / Confirmed Lumbosacral radiculopathy / SNOMED CT 9749801 / Confirmed Seizure disorder, focal motor / SNOMED CT 058310786 / Confirmed Resolved: At risk for falls / SNOMED CT 243146686 Problem added when Risk for Falls Careplan was initiated. Resolved due to patient discharge. Resolved: At risk for falls / SNOMED CT 734042158 Problem added when Risk for Falls Careplan was initiated. Resolved due to patient discharge. Resolved: At Risk For Unstable Blood Glucose Level / IMO 3579957 Problem added due to documentation that the patient has diabetes. Resolved due to patient discharge. Resolved: DVT - Deep vein thrombosis / SNOMED CT 1656049140 leg Resolved: Fracture / SNOMED CT 479017175 (more content not included)... Normal [facility] Comment on above: Result Comment: Elec tronically Signed By: Yong Guevara Jr., DO\.br\Date and Time Signed: 01/10/23 07:36 EDT C Urineon 01-03-2023 Bacteria identified Cx Nom (U) Microbiology PROCEDURE: Urine Culture [R1] SOURCE: U CleanCatch BODY SITE: COLLECTED DATE/TIME: 12/31/2022 22:55 EDT RECEIVED DATE/TIME: 12/31/2022 23:08 EDT START DATE/TIME: 12/31/2022 23:08 EDT FREE TEXT SOURCE: Pantera Wise DO. Billie PAYNE, Pantera Grimaldo. FINAL REPORTS Final Report [] Verified Date/Time: 01/03/2023 10:26 EDT 20,000 cfu/ml Escherichia coli 5,000 cfu/ml Mixed skin contaminants SUSCEPTIBILITY RESULTS LEGEND: S=Susceptible, N/R=Not Reported, Blank=Data not available, or drug not advisable or tested, I=Intermediate, ESBL=Extended spectrum beta-lactamase, R=Resistant, TFG=Thymidine-depende nt strain, NATI=Beta-lactamase positive, MARITZA=mcg/m;(mg/L), S*=Predicted susceptible interp, R*=Predicted resistant interp EC Antibiotic MARITZA Dilutn MARITZA Interp Amikacin <=16 S Ampicillin <=8 S Ampicillin/ <=8/4 S Sulbactam Aztreonam <=4 S Cefazolin <=2 S Cefepime <=2 S Cefoxitin <=8 S Ceftazidime <=1 S Ceftazidime/ <=8 S Avibactam Ceftriaxone <=1 S Ciprofloxacin <=1 S Ertapenem <=0.5 S Gentamicin <=4 S Levofloxacin <=2 S Meropenem <=1 S Nitrofurantoin <=32 S Piperacillin/ <=16 S Tazobactam Tetracycline <=4 S Tigecycline <=2 S Tobramycin <=4 S Trimethoprim/ >2/38 R Sulfa Performing Locations R1: This test was performed at: [facility], [address] [place] [address], [address]- , , [facility] Comment on above: Performed By: #### 1 [id number], [id number] ####[place] [id number] CHEMISTRYOrdered By: SYSTEM SYSTEM on 01-03-2023 Albumin [Mass/Vol] 3.8 g/dL Normal 3.3 - 5.0 gm/dL [facility] Remisol Anion gap [Moles/Vol] 12 mmol/L Normal 6 - 16 mEq/L [facility] Remisol Calcium [Mass/Vol] 8.8 mg/dL Low 8.9 - 11. 1 mg/dL [facility] Remisol Chloride [Moles/Vol] 111 mmol/L Normal 101 - 1 11 mmol/L [facility] [place] CO2 [Moles/Vol] 23 mmol/L Normal 21 - 31 mmol/L [facility] Creatinine [Mass/Vol] 1.6 mg/dL High 0.5 - 1.3 mg/dL [facility] GFR/1.73 sq M.predicted among non-blacks MDRD (S/P/Bld) [Vol rate/Area] 33 mL/min/1.73 m2 Low >=59mL/min/ 1.73 m2 [facility] Chem S Glucose [Mass/Vol] 147 mg/dL Normal 55 - 199 mg/dL [facility] Phosphate [Mass/Vol] 3.5 mg/dL Normal 1.9 - 4 .6 mg/dL [facility] Potassium [Moles/Vol] 4.5 mmol/L Normal 3.5 - 5.3 mmol/L [facility] Sodium [Moles/Vol] 141 mmol/L Normal 135 - 145 mmol/L [facility] Urea nitrogen [Mass/Vol] 32 mg/dL High 5 - 21 mg/dL [facility] Urea nitrogen/Creatinine [Mass ratio] 20 mg/mg Normal 10 - 20 [facility] CHEMISTRYOrdered By: Ruth Dumont on 01-03-2023 Albumin Elph (U) [Mass fraction] mg/dL Invalid Interpretation Code [facility] Creatinine (U) [Mass/Vol] 58.8 mg/dL Invalid Interpretation Code [facility] U Prot/Creat Ratio [facility] Invalid Interpretation Code 0.00 - 200.00 [facility] Consent for Treatmenton 12-16 Consent for Treatment [id number] .00CD:127 Normal [facility] Physician Orderon 01-03-2023 Physician Order [id number]# 1.00CD:127 Normal [facility] Renal Panelon 01-03-2023 Albumin [Mass/Vol] 3.8 g/dL Normal 3.3-5.0 [facility] Comment on above: Performed By: #### 1 [id number], [id number] #### [facility] [address] [place] [address] Anion gap [Moles/Vol] 12 mmol/L Normal 6-16 [facility] Comment on above: Performed By: #### 1 [id number], [id number] #### [facility] [address] [place] [address] Calcium [Mass/Vol] 8.8 mg/dL Low 8.9-11.1 [facility] Comment on above: Performed By: #### 1 [id number], [id number] #### [facility] [address] [place] [address] Chloride [Moles/Vol] 111 mmol/L Normal 101-111 [facility] Comment on above: Performed By: #### 1 [id number], [id number] #### [facility] [address] [place] [address] CO2 [Moles/Vol] 23 mmol/L Normal 21-31 [facility] Comment on above: Performed By: #### 1 [id number], [id number] #### [facility] [address] [facility] [place] [address] Creatinine [Mass/Vol] 1.6 mg/dL High 0.5-1.3 [facility] Comment on above: Performed By: #### 1 [id number], [id number] #### [facility] [address] [place] [address] Glucose [Mass/Vol] 147 mg/dL Normal 55-199 [facility] Comment on above: Result Comment: If t his glucose result represents a fasting glucose, interpretation should refer to the following reference range: 55-99 mg/dL Performed By: #### 1 [id number], [id number] #### [facility] [address] [facility] [place] [address] Phosphate [Mass/Vol] 3.5 mg/dL Normal 1.9-4.6 [facility] Comment on above: Performed By: #### 1 [id number], [id number] #### [facility] [address] [facility] [place] [address] Potassium [Moles/Vol] 4.5 mmol/L Normal 3.5-5.3 [facility] Comment on above: Performed By: #### 1 [id number], [id number] #### [facility] [address] [facility] [place] [address] Sodium [Moles/Vol] 141 mmol/L Normal 135-145 [facility] Comment on above: Performed By: #### 1 [id number], [id number] #### [facility] [address] [place] [address] Urea nitrogen [Mass/Vol] 32 mg/dL High 5-21 [facility] Comment on above: Performed By: #### 1 [id number], [id number] #### [facility] [address] [place] [address] Urea nitrogen/Creatinine [Mass ratio] 20 No Units Normal 10-20 [facility] Comment on above: Performed By: #### 1 [id number], [id number] #### [facility] [address] [place] [address] U Protein/Creat Ratio 07 Albumin Elph (U) [Mass fraction] <6.0 Invalid Interpretation Code [facility] Comment on above: Result Comment: The reference range and other method performance specifications have not been established for this test; results should be integrated into the clinical context for interpretation. Performed By: #### 1 [id number], [id number] #### [facility] [address] [place] [address] Creatinine (U) [Mass/Vol] 58.8 mg/dL Invalid Interpretation Code [facility] Comment on above: Result Comment: The reference range and other method performance specifications have not been established for this test; results should be integrated into the clinical context for interpretation. Performed By: #### 1 [id number], [id number] #### [facility] [address] [place] [address] U Prot/Creat Ratio [facility] Invalid Interpretation Code .00-200.00 [facility] Comment on above: Performed By: #### 1 [id number], [id number] #### [place] [facility] [address] [place] [id number] URINALYSISOrdered By: Aakash Garcia on 01-03-2023 Bilirubin Ql (U) Negative (01/03/23 7:01 AM) Normal Negative [facility] UA Auto SS Clarity (U) Clear (01/03/23 7:01 AM) Normal Clear [facility] UA Auto SS Color (U) Gonzales *ABN* (01/03/23 7:01 AM) Invalid Interpretation Code Yellow [facility] UA Auto SS Epithelial cells.squamous LM.HPF (Urine sed) [#/Area] 0-2 /HPF Normal 0-2/HPF [facility] UA Aut o SS Glucose Test strip (U) [Mass/Vol] Trace *ABN* (01/03/23 7:01 AM) Invalid Interpretation Code Negative [facility] UA Auto SS Hemoglobin Ql (U) Negative (01/03/23 7:01 AM) Normal Negative [facility] UA Auto SS Ketones (U) [Mass/Vol] Negative (01/03/23 7:01 AM) Normal Negative [facility] UA Auto SS [place].plasma/[place]. RBC (Bld) [Mass ratio] 0-3 /HPF Normal 0-3/HPF [facility] UA A uto SS Nitrite Ql (U) See Comment 1 (01/03/23 7:01 AM) Normal Negative [facility] UA Auto SS Comment on above: Result Comment: Test Not Performed Due To Interfering Substance pH (U) 5.0 *NA* (01/03/23 7:01 AM) Invalid Interpretation Code 5.0 - 9.0 [facility] UA Auto SS Protein (U) [Mass/Vol] Negative (01/03/23 7:01 AM) Normal Negative [facility] UA Auto SS Specific gravity (U) [Rel density] 1.010 *NA* (01/03/23 7:01 AM) Invalid Interpretation Code 1.005 - 1.030 [facility] UA Auto SS UA Spec Desc Clean Catch (01/03/23 7:01 AM) Normal [facility] UA Auto SS Urobilinogen Qn (U) 1.3670614 {Dasia'U}/dL Normal 0.0 - 1.0 EU/dL [facility] UA Auto SS WBC Auto Ql (U) Negative (01/03/23 7:01 AM) Normal Negative [facility] [place]A Auto SS WBC LM.HPF (Urine sed) [#/Area] 0-5 /HPF Normal 0-5/HPF [facility] UA Auto SS Yeast LM Ql (Urine sed) Trace (01/03/23 7:01 AM) Normal [facility] UA Auto SS Urinalysison 01-03-2023 Bilirubin Ql (U) Negative Normal Negative [facility] Comment on above: Performed By: #### 1 [id number], [id number] #### [facility] [address] [place] [address] Clarity (U) CLEAR Normal Clear [facility] Comment on above: Performed By: #### 1 [id number], [id number] #### [facility] [address] [place] [address] Color (U) ORANGE Abnormal Yellow [facility] Comment on above: Performed By: #### 1 [id number], [id number] #### [facility] [address] [place] [address] Epithelial cells.squamous LM.HPF (Urine sed) [#/Area] 0-2 Normal 0-2 [facility] Comment on above: Performed By: #### 1 [id number], [id number] #### [facility] [address] [place] [address] Glucose Test strip (U) [Mass/Vol] TRACE Abnormal Negative [facility] Comment on above: Performed By: #### 1 [id number], [id number] #### [facility] [address] [place] [address] Hemoglobin Ql (U) Negative Normal Negative [facility] Comment on above: Performed By: #### 1 [id number], [id number] #### [facility] [address] [place] [address] Ketones (U) [Mass/Vol] Negative Normal Negative [facility] Comment on above: Performed By: #### 1 [id number], [id number] #### [facility] [address] [place] [address] [place].plasma/[place]. RBC (Bld) [Mass ratio] 0-3 Normal 0-3 [facility] Comment on above: Performed By: #### 1 [id number], [id number] #### [facility] [address] [place] [address] Nitrite Ql (U) See Comment Normal Negative [facility] Comment on above: Result Comment: Test Not Performed Due To Interfering Substance Performed By: #### 1 [id number], [id number] #### [facility] [address] [place] [address] pH (U) 5.0 [pH] Invalid Interpretation Code 5.0-9.0 [facility] Comment on above: Performed By: #### 1 [id number], [id number] #### [facility] [address] [place] [address] Protein (U) [Mass/Vol] Negative Normal Negative [facility] Comment on above: Performed By: #### 1 [id number], [id number] #### [facility] [address] [place] [address] Specific gravity (U) [Rel density] 1.010 Invalid Interpretation Code 1.005-1.030 [facility] Comment on above: Performed By: #### 1 [id number], [id number] #### [facility] [address] [place] [address] Type of Urine collection method Clean Catch Normal [facility] Comment on above: Performed By: #### 1 [id number], [id number] #### [facility] [address] [place] [address] Urobilinogen Qn (U) 1.0 {Dasia'U}/dL Normal 0.0-1.0 [facility] Comment on above: Performed By: #### 1 [id number], [id number] #### [facility] [address] [place] [address] WBC Auto Ql (U) Negative Normal Negative [facility] Comment on above: Performed By: #### 1 [id number], [id number] #### [facility] [address] [place] [address] WBC LM.HPF (Urine sed) [#/Area] 0-5 Normal 0-5 [facility] Comment on above: Performed By: #### 1 [id number], [id number] #### [facility] [address] [place] [address] Yeast LM Ql (Urine sed) TRACE Normal [facility] Comment on above: Performed By: #### 1 [id number], [id number] #### [facility] [address] [place] [address] eGFRon 01-03-2023 GFR/1.73 sq M.predicted among non-blacks MDRD (S/P/Bld) [Vol rate/Area] 33 mL/min/1.73 m2 Low >=59 [facility] Comment on above: Order Comment: Order added by Discern Expert. Result Comment: Resolution Expert malcolm kidney disease could be indicated at eGFR's of less than 60 mL/min/1.73m2. Kidney failure is indicated at less than 15 mL/min/1.73m2. Performed By: #### 1 [id number], [id number] #### [facility] [address] [place] [address] Consent for Treatmenton 12-16 Consent for Treatment [id number] .[id number]:127 Normal [facility] Discharge Instructionson Discharge Instructions [id number]. [id number]:127 Normal [facility] ED Clinical Summaryon 2022 ED Clinical Summary [address] [address] ED Clinical Summary Person Information Name: CHACHO EDWARDS [place] Age: 77 Years : 1945 Sex: Female Language: Portuguese PCP: Lani Méndez DO Marital Status: Visit Id: Visit Reason: Urinary frequency; Dysuria; BLOOD IN URINE, URINARY FREQUENCY Speciality: Acuity: 4 Enc Type: Emergency Med Service: Emergency Arrival: 12/31/2022 22:31:54 Discharge: 12/31/2022 23:40:14 LOS: 000 01:09 Checkin: 12/31/2022 22:31:54 Checkout: 12/31/2022 23:40:14 Dispo Type: Home (Routine DC) EVENTS: Event Name Event Status Request Date/Time Start Date/Time Complete Date/Time Arrive Complete 12/31/2022 22:31:54 12/31/2022 22:31:54 12/31/2022 22:31:54 Document Home Meds Request 12/31/2022 22:31:54 Triage Complete 12/31/2022 22:31:54 12/31/2022 22:40:49 12/31/2022 22:40:49 Pending Labs Complete 12/31/2022 22:33:57 12/31/2022 23:08:07 Lab Complete 12/31/2022 22:33:57 12/31/2022 23:08:07 Urine Collect Complete 12/31/2022 22:33:57 12/31/2022 23:08:07 Dr Exam Complete 12/31/2022 22:34:35 12/31/2022 22:34:35 12/31/2022 22:34:35 Registration Complete 12/31/2022 22:34:35 12/31/2022 22:37:07 12/31/2022 22:37:07 Reg Complete Request 12/31/2022 22:37:07 Reg Bed Request Complete 12/31/2022 22:37:07 12/31/2022 22:37:07 12/31/2022 22:37:07 Bed Assign Complete 12/31/2022 22:41:04 12/31/2022 22:41:04 12/31/2022 22:41:04 RN Exam Complete 12/31/2022 22:41:04 12/31/2022 23:39:32 12/31/2022 23:39:32 Pending Labs Inlab 12/31/2022 23:00:33 12/31/2022 23:00:33 Lab Inlab 12/31/2022 23:00:33 12/31/2022 23:00:33 Meds Admin Complete 12/31/2022 23:18:35 12/31/2022 23:25:43 Discharge Complete 12/31/2022 23:20:14 12/31/2022 23:40:19 12/31/2022 23:40:19 Transfer Complete 12/31/2022 23:40:20 12/31/2022 23:40:20 12/31/2022 23:40:20 [address]: [address] [facility] [id number] PHYS DOC NOTES: MEDICAL INFORMATION: Prescriptions Given: New Medications [facility], [address] [facility] [place], [place] [id number], [phone] ciprofloxacin (Cipro 500 mg Tab) 1 Tablets By Mouth every 12 hours for 7 Days. Refills: 0. phenazopyridine (Pyridium 100 mg Tab) 1 Tablets By Mouth 3 times a day for 2 Days. Refills: 0. Medications to Continue with No Changes Other Medications acetaminophen (Tylenol 8 HR Arthritis Pain 650 mg oral tablet, extended release) 2 Tablets By Mouth every 8 hours as needed Pain. aspirin (aspirin 81 mg Oral EC Tab) 1 Tablets By Mouth every day. Refills: 0. atenolol (atenolol 50 mg Tab) 1 Tablets By Mouth at bedtime. atenolol (atenolol 50 mg Tab) 0.5 Tablets By Mouth every day. takes in am. atorvastatin (atorvastatin 80 mg Tab) 1 Tablets By Mouth every day. Refills: 0. cefpodoxime (cefpodoxime 100 mg oral tablet) gabapentin (gabapentin 600 mg Tab) 2 Tablets By Mouth 2 times a day for 90 Days. Refills: 0. hydrochlorothiazide (hydrochlorothiazide 25 mg Tab) insulin lispro-insulin lispro protamine (Humalog Mix 75/25 KwikPen) 25 units Breakfast, 35 units Supper. levetiracetam (Keppra 750 mg oral tablet) 1 Tablets By Mouth 2 times a day. Refills: 0. liraglutide (Victoza) 1.8 Milligram Subcutaneous every day. lisinopril (lisinopril 20 mg Tab) 1 Tablets By Mouth every day. omeprazole 40 Milligram By Mouth every day. oxycodone (oxyCODONE 5 mg Tab) 0.5 Tablets By Mouth 2 times a day as needed pain. PATIENT EDUCATION INFORMATION: Instructions: Urinary Tract Infection, Adult Follow up: With: Address: When: Lani Méndez [address] [place] [address] Business (1) In 3 days DIAGNOSIS: Acute UTI Normal [facility] ED Note-Physicianon 01-02-20 23 ED Note-Physician Basic Information Time Seen: Pantera Wise DO 12/31/2022 22:34 Chief Complaint Burning, bleeding, pain and urinary frequency since yesterday and worsened today. Recently treated for UTI with Augmentin History of Present Illness HPI: Patient is a 77-year-old female past ministry of CKD, stroke, radiculopathy, seizures who presents the ED for urinary frequency, dysuria, and hematuria. Patient states that she has been having on and off UTIs since June when she had a stroke. She states that she was recently treated with a course of Augmentin for a UTI but does not feel like her symptoms have improved. She denies any fever or chills. She denies any nausea vomiting or diarrhea. She states that in the past 24 hours the urinary frequency has become much worse and she is uncomfortable. ROS: Pertinent review of systems conducted and is negative except as noted above. Physical exam: General: nontoxic appearing and in no distress HEENT: Mucous membranes moist Neuro: awake and alert Neck: supple, trachea midline Card: Heart regular rate and rhythm no murmur Resp: Lungs clear to auscultation no wheeze or rhonchi Abd: Soft and nondistended. No tenderness to palpation with no rebound or guarding. Physical Exam Vitals & Measurements T: 36.6 ?C(Oral) HR: 78(Peripheral) RR: 20 BP: 169/92 SpO2: 94% HT: 162 cm WT: 131 kg BMI: 49.92 Medical Decision Making MEDICAL DECISION MAKING Number and Complexity of Problems Differential Diagnosis: [] MDM Data External documents reviewed: N/A My EKG interpretation: Noted in chart if applicable My CT interpretation: N/A My X-ray interpretation: Noted in chart if applicable My Ultrasound interpretation: N/A Decision rules/scores evaluated: N/A Discussed with: N/A Treatment and Disposition ED Course: Patient is well-appearing in no distress. Abdomen is soft and nontender. No CVA tenderness. She is afebrile here in the ED and vital signs are otherwise stable. Urinalysis was obtained and shows evidence of UTI. I did review her recent medication history and she has been on multiple forms of penicillins and cephalosporins over the past several months. Her urine culture from August showed that she had E. coli that was sensitive to most medications other than ampicillin. She has an allergy to sulfa drugs. For this reason having failed cephalosporins and being unable to take sulfa we will give her a short course of ciprofloxacin. We will give her a short course of Pyridium for symptom control. She will follow close with her primary care physician. Shared decision making: As above Code status: N/A Assessment/Plan Acute UTI (N39.0: Urinary tract infection, site not specified) Orders: ciprofloxacin, 500 mg = 1 tab(s), Oral, q12hr, X 7 day(s), # 14 tab(s), Refills(s) 0, Pharmacy: [facility], 162, cm, 12/31/22 22:40:00 EDT, Height/Length Dosing, 131, kg, 12/31/22 22:40:00 EDT, Weight Dosing ciprofloxacin, 500 mg = 1 tab(s), Tab, Oral, Once, Stop date 12/31/22 23:18:00 EDT, STAT, Start date 12/31/22 23:18:00 EDT, 12/31/22 23:18:00 EDT phenazopyridine, 100 mg = 1 tab(s), Oral, TID, X 2 day(s), # 6 tab(s), Refills(s) 0, Pharmacy: [facility], 162, cm, 12/31/22 22:40:00 EDT, Height/Length Dosing, 131, kg, 12/31/22 22:40:00 EDT, Weight Dosing phenazopyridine, 100 mg = 1 tab(s), Tab, Oral, Once, Stop date 12/31/22 23:18:00 EDT, STAT, Start date 12/31/22 23:18:00 EDT, 12/31/22 23:18:00 EDT UA With Cult Reflex Urine Culture Disposition Plan Discharge Prescription List Prescriptions Cipro 500 mg Tab, 500 mg= 1 tab(s), Oral, q12hr Pyridium 100 mg Tab, 100 mg= 1 tab(s), Oral, TID Follow-up With When Contact Information Lani Kunzricky In 3 days [address] [place] [address] Business (1) Additional Instructions: Patient Education Urinary Tract Infection, Adult Problem List/Past Medical History Ongoing Arthritis Chronic kidney disease due to diabetes mellitus Chronic kidney disease, stage 3b 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, homonymous, 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 History of CVA (cerebrovascular accident) without residual deficits History of obesity Lumbosacral radiculopathy Seizure disorder, focal motor Historical DVT - Deep vein thrombosis Procedure/Surgical History Implantation of neurostimulator in spine (03/09/2021), Injection of sacroiliac joint (09/15/2020), Injection of nerve root of lumbar spine using fluoroscopic guidance (04/28/2020), Decompression of lumbar spine (12/02/2019), MRI (03/19/2019), Arthroscopy of knee (03/13/2019), Injection of sacroiliac joint using fluoroscopic guidance (10/09/2018), Epidural injection of lumbar spine using fluoroscopic guidance (08/07/2018), Epidural injection of lumbar spine using fluoroscopic guidance (04/17/2018), Injection of sacroiliac joint using fluoroscopic guidan (more content not included)... Normal [facility] Comment on above: Result Comment: Elec tronically Signed By: Pantera Wise DO\.br\Date and Time Signed: 12/31/22 23:21 EDT ED Patient Education Noteon 01-01-2023 ED Patient Education Note Obstetrics and Gynecology Urinary Tract Infection, Adult A urinary tract infection (UTI) is an infection of any part of the urinary tract. The urinary tract includes the kidneys, ureters, bladder, and urethra. These organs make, store, and get rid of urine in the body. An upper UTI affects the ureters and kidneys. A lower UTI affects the bladder and urethra. What are the causes? Most urinary tract infections are caused by bacteria in your genital area around your urethra, where urine leaves your body. These bacteria grow and cause inflammation of your urinary tract. What increases the risk? You are more likely to develop this condition if: ? You have a urinary catheter that stays in place. ? You are not able to control when you urinate or have a bowel movement (incontinence). ? You are female and you: ? Use a spermicide or diaphragm for control. ? Have low estrogen levels. ? Are . ? You have certain genes that increase your risk. ? You are sexually active. ? You take antibiotic medicines. ? You have a condition that causes your flow of urine to slow down, such as: ? An enlarged prostate, if you are male. ? Blockage in your urethra. ? A kidney stone. ? A nerve condition that affects your bladder control (neurogenic bladder). ? Not getting enough to drink, or not urinating often. ? You have certain medical conditions, such as: ? Diabetes. ? A weak disease-fighting system (immunesystem). ? Sickle cell disease. ? Gout. ? Spinal cord injury. What are the signs or symptoms? Symptoms of this condition include: ? Needing to urinate right away (urgency). ? Frequent urination. This may include small amounts of urine each time you urinate. ? Pain or burning with urination. ? Blood in the urine. ? Urine that smells bad or unusual. ? Trouble urinating. ? Cloudy urine. ? Vaginal discharge, if you are female. ? Pain in the abdomen or the lower back. You may also have: ? Vomiting or a decreased appetite. ? Confusion. ? Irritability or tiredness. ? A fever or chills. ? Diarrhea. The first symptom in older adults may be confusion. In some cases, they may not have any symptoms until the infection has worsened. How is this diagnosed? This condition is diagnosed based on your medical history and a physical exam. You may also have other tests, including: ? Urine tests. ? Blood tests. ? Tests for STIs (sexually transmitted infections). If you have had more than one UTI, a cystoscopy or imaging studies may be done to determine the cause of the infections. How is this treated? Treatment for this condition includes: ? Antibiotic medicine. ? Ccyv-tip-pedisga medicines to treat discomfort. ? Drinking enough water to stay hydrated. If you have frequent infections or have other conditions such as a kidney stone, you may need to see a health care provider who specializes in the urinary tract (urologist). In rare cases, urinary tract infections can cause sepsis. Sepsis is a life-threatening condition that occurs when the body responds to an infection. Sepsis is treated in the hospital with IV antibiotics, fluids, and other medicines. Follow these instructions at home: Medicines ? Take uiex-dth-ppqjmbt and prescription medicines only as told by your health care provider. ? If you were prescribed an antibiotic medicine, take it as told by your health care provider. Do not stop using the antibiotic even if you start to feel better. General instructions ? Make sure you: ? Empty your bladder often and completely. Do not hold urine for long periods of time. ? Empty your bladder after sex. ? Wipe from front to back after urinating or having a bowel movement if you are female. Use each tissue only one time when you wipe. ? Drink enough fluid to keep your urine pale yellow. ? Keep all follow-up visits. This is important. Contact a health care provider if: ? Your symptoms do not get better after 1?2 days. ? Your symptoms go away and then return. Get help right away if: ? You have severe pain in your back or your lower abdomen. ? You have a fever or chills. ? You have nausea or vomiting. Summary ? A urinary tract infection (UTI) is an infection of any part of the urinary tract, which includes the kidneys, ureters, bladder, and urethra. ? Most urinary tract infections are caused by bacteria in your genital area. ? Treatment for this condition often includes antibiotic medicines. ? If you were prescribed an antibiotic medicine, take it as told by your health care provider. Do not stop using the antibiotic even if you start to feel better. ? Keep all follow-up visits. This is important. This information is not intended to replace advice given to you by your health care provider. Make sure you discuss any questions you have with your health care provider. Document Revised: 01/14/2021 Document Revie (more content not included)... Normal [facility] ED Patient Summaryon 023 ED Patient Summary [address] [address] Patient Discharge Instructions Person Information Name: CHACHO EDWARDS Age: 77 Years Arrival Date: 12/31/2022 22:31:54 Discharge Diagnosis: Acute UTI Primary Care Physician: Lani Méndez DO Provider Information Primary Provider: Pantera Wise DO Advanced Dietary Manager:Harjinder The exam and treatment you received in the Emergency Department were for an urgent problem and are not intended as complete care. It is important that you follow up with a doctor, nurse practitioner, or physician?s patient care nursing assistant for ongoing care. If your symptoms become worse or you do not improve as expected and you are unable to reach your usual health care provider, you should return to the Emergency Department. We are available 24 hours a day. CHACHO EDWARDS has been given the following list of patient education materials, prescriptions and follow-up instructions: Follow-up Instructions: With: Address: When: Lani Méndez [address] [place] [address] Business (1) In 3 days In the event that this physician does not participate in your insurance network, please consult with your insurance company to find a nearby participating provider. Patient Education Materials: Urinary Tract Infection, Adult A MESSAGE TO ALL PATIENTS REGARDING OPIOIDS PRESCRIPTION OPIOIDS: WHAT YOU NEED TO KNOW Prescription opioids can be used to help relieve krdgaret-xa-gugpcd pain and are often prescribed following a surgery or injury, or for certain health conditions. These medications can be an important part of the treatment but also come with serious risks. It is important to work with your healthcare provider to make sure you are getting the safest, most effective care. WHAT ARE THE RISKS AND SIDE EFFECTS OF OPIOID USE? Prescription opioids carry serious risks of addiction and overdose, especially with prolonged use. An opioid overdose, often marked by slowed breathing, can cause sudden . The use of prescription opioids can have a number of side effects as well, even when taken as directed: ? Tolerance?meaning you might need to take more of the medication for the same pain relief ? Physical dependence?meaning you have symptoms of withdrawal when a medication is stopped ? Increased sensitivity to pain ? Constipation ? Nausea, vomiting, and dry mouth ? Sleepiness and dizziness ? Confusion ? Depression ? Low levels of testosterone that can result in lower sex drive, energy, and strength ? Itching and sweating RISKS ARE GREATER WITH: ? History of drug misuse, substance use disorder, or overdose ? Mental health conditions (such as depression or anxiety) ? Sleep apnea ? Older age (65 years and older) ? Avoid alcohol while taking prescription opioids. Also, unless specifically advised by your health care provider, medications to avoid include: ? Benzodiazepines (such as Xanax or Valium) ? Muscle relaxants (such as Soma or Flexeril) ? Hypnotics (such as Ambien or Lunesta) ? Other prescription opioids KNOW YOUR OPTIONS Talk to your health care provider about ways to manage your pain that don?t involve prescription opioids. Some of these options may actually work better and have fewer risks and side effects. Options may include: ? Pain relievers such as acetaminophen, ibuprofen, and naproxen ? Some medication that are also used for depression or seizures ? Physical therapy and exercise ? Cognitive behavioral therapy, a psychological, goal-directed approach, in which patients learn how to modify physical, behavioral, and emotional triggers of pain and stress. IF YOU ARE PRESCRIBED OPIOIDS FOR PAIN: ? Never take opioids in greater amounts or more often than prescribed. ? Follow up with your primary health care provider. o Work together to create a plan on how to manage your pain. o Talk about ways to help manage your pain that don?t involve prescription opioids. o Talk about any and all concerns and side effects. ? Help prevent misuse and abuse o Never sell or share prescription opioids. o Never use another person?s prescription opioids. ? Store prescription opioids in a secure place and out of reach of others (this may include visitors, children, friends, and family). ? Safely dispose of unused prescription opioids: Find your community drug take-back program or your pharmacy mail-back program, or flush them down the toilet, following guidance from the Food and Drug Administration (www.fda.gov/Drugs/Re sourcesForYou). ? Visit www.cdc.gov/drugoverd ose to learn about the risks of opioids abuse and overdose. ? If you believe you may be struggling with addiction, tell your health lpn care manager and ask for guidance or call [facility] National Helpline at 9-489-008-WDOP. q Source: [place] Department of Health and Human (more content not included)... Normal [facility] UA With Cult Reflexon 2022 Bacteria LM Ql (Urine sed) TRACE Normal Trace [facility] Comment on above: Performed By: #### 1 [id number], [id number] ####[facility] [address] [place] [address] Bilirubin Ql (U) 1+ Abnormal Negative [facility] Comment on above: Performed By: #### 1 [id number], [id number] ####[address] [address] Clarity (U) CLOUDY Abnormal Clear [facility] Comment on above: Performed By: #### 1 [id number], [id number] ####[address] [address] Color (U) ORANGE Abnormal Yellow [facility] Comment on above: Performed By: #### 1 [id number], [id number] ####[address] [address] Epithelial cells.squamous LM.HPF (Urine sed) [#/Area] 3-4 Normal 0-2 [facility] Comment on above: Performed By: #### 1 [id number], [id number] ####[address] [address] Glucose Test strip (U) [Mass/Vol] Negative Normal Negative [facility] Comment on above: Performed By: #### 1 [id number], [id number] ####[facility] [address] [place] [address] Hemoglobin Ql (U) 3+ Abnormal Negative [facility] Comment on above: Performed By: #### 1 [id number], [id number] ####[facility] [address] [place] [address] Ketones (U) [Mass/Vol] Negative Normal Negative [facility] Comment on above: Performed By: #### 1 [id number], [id number] ####[address] [address] [place].plasma/[place]. RBC (Bld) [Mass ratio] >30 Abnormal 0-3 [facility] Comment on above: Performed By: #### 1 [id number], [id number] ####[address] [address] Nitrite Ql (U) Positive Abnormal Negative [facility] Comment on above: Performed By: #### 1 [id number], [id number] ####[place] [id number] pH (U) 6.5 [pH] Invalid Interpretation Code 5.0-9.0 [facility] Comment on above: Performed By: #### 1 [id number], [id number] ####[place] [address] Protein (U) [Mass/Vol] 3+ Abnormal Negative [facility] Comment on above: Performed By: #### 1 [id number], [id number] ####[place] [id number] Specific gravity (U) [Rel density] 1.020 Invalid Interpretation Code 1.005-1.030 [facility] Comment on above: Performed By: #### 1 [id number], [id number] ####[place] [address] Type of Urine collection method Clean Catch Normal [facility] Comment on above: Performed By: #### 1 [id number], [id number] ####[place] [id number] Urobilinogen Qn (U) 0.2 {Dasia'U}/dL Normal 0.0-1.0 [facility] Comment on above: Performed By: #### 1 [id number], [id number] ####[place] [id number] WBC Auto Ql (U) 2+ Abnormal Negative [facility] Comment on above: Performed By: #### 1 [id number], [id number] ####[place] [id number] WBC LM.HPF (Urine sed) [#/Area] 16-25 Abnormal 0-5 [facility] Comment on above: Performed By: #### 1 [id number], [id number] ####[facility] [address] [place] [address] URINALYSISOrdered By: Ken Chow on 12-31-2022 Bacteria LM Ql (Urine sed) Trace /HPF Normal Trace/HPF [facility] UA Auto SS Bilirubin Ql (U) 1+ *ABN* (12/31/22 10:55 PM) Invalid Interpretation Code Negative [facility] UA Auto SS Clarity (U) Cloudy *ABN* (12/31/22 10:55 PM) Invalid Interpretation Code Clear [facility] UA Auto SS Color (U) Gonzales *ABN* (12/31/22 10:55 PM) Invalid Interpretation Code Yellow [facility] UA Auto SS Epithelial cells.squamous LM.HPF (Urine sed) [#/Area] 3-4 /HPF Normal 0-2/HPF [facility] UA Aut o SS Glucose Test strip (U) [Mass/Vol] Negative (12/31/22 10:55 PM) Normal Negative [facility] UA Auto SS Hemoglobin Ql (U) 3+ *ABN* (12/31/22 10:55 PM) Invalid Interpretation Code Negative [facility] UA Auto SS Ketones (U) [Mass/Vol] Negative (12/31/22 10:55 PM) Normal Negative [facility] UA Auto SS [place].plasma/[place]. RBC (Bld) [Mass ratio] >30 /HPF Invalid Interpretation Code 0-3/HPF [facility] UA Auto SS Nitrite Ql (U) Positive *ABN* (12/31/22 10:55 PM) Invalid Interpretation Code Negative [facility] UA Auto SS pH (U) 6.5 *NA* (12/31/22 10:55 PM) Invalid Interpretation Code 5.0 - 9.0 [facility] UA Auto SS Protein (U) [Mass/Vol] 3+ *ABN* (12/31/22 10:55 PM) Invalid Interpretation Code Negative [facility] UA Auto SS Specific gravity (U) [Rel density] 1.020 *NA* (12/31/22 10:55 PM) Invalid Interpretation Code 1.005 - 1.030 [facility] UA Auto SS UA Spec Desc Clean Catch (12/31/22 10:55 PM) Normal [facility] UA Auto SS Urobilinogen Qn (U) 0.2320216 {Dasia'U}/dL Normal 0.0 - 1.0 EU/dL [facility] [place] Auto [place] WBC Auto Ql (U) 2+ *ABN* (12/31/22 10:55 PM) Invalid Interpretation Code Negative [facility] [place] Auto SS WBC LM.HPF (Urine sed) [#/Area] 16-25 /HPF Invalid Interpretation Code 0-5/HPF [facility] [place] Auto SS CHEMISTRYOrdered By: Lab ROP User on 12-13-2022 Glucose [Mass/Vol] 113 mg/dL High 55 - 99 mg/dL [facility] P[place] Subsection POC Device SN [id number] Invalid Interpretation Code [facility] Subsection POC User ID [id number] Invalid Interpretation Code [facility] Subsection POC Username TIFFANY FELICIANO Invalid Interpretation Code [facility] Subsection Capillary Glucose POCon 11-17 Glucose [Mass/Vol] 113 mg/dL High 55-99 [facility] Comment on above: Performed By: #### 2 [id number] #### [facility] [address] [place] [address] Consent for Treatmenton 11-17 Consent for Treatment [id number]# 1.00CD:127 Normal [facility] Main OR Preoperative Recordo n 12-13-2022 Main OR Preoperative Record Holding Area Document Type [facility] Summary Primary Physician: Dustin Gonzales MD Finalized Date/Time: 12/13/22 07:53:47 Pt. Name: CHACHO EDWARDS/Sex: 1945 Female Med Rec #: [id number] Physician: Dustin Gonzales MD Financial #: [id number] Pt. Type: P Room/Bed: / Admit/Disch: 12/13/22 07:00:15 - Institution: Case Times Holding [facility] Pre-Care Text: Verifies consent for planned procedure, identifies individual values and wishes concerning care, includes family members in perioperative teaching Secures patient's records' belongings, and valuables, maintains patient's dignity and privacy, and maintains patient confidentiality Entry 1 In Holding 12/13/22 07:13:00 Outcomes Met? Yes Last Modified By: Tiffany Feliciano RN 12/13/22 07:13:10 Post-Care Text: The patient participates in decisions affecting his or her perioperative plan of care The patient's right to privacy is maintained Finalized By: Tiffany Feliciano RN Document Signatures Signed By: Tiffany Feliciano RN 12/13/22 07:16 Tiffany Feliciano RN 12/13/22 07:53 Normal [facility] Progress Note-Physicianon Progress Note-Physician Patient: CHACHO EDWARDS Age: 77 years Sex: Female : 1945 Associated Diagnoses: None Author: Onur Martínez DO Preoperative Information Anesthesia history: Patient history: None. Family history+: None. Anesthesia results Informed consent: Signed by patient. Including risks, benefits, and alternatives related to the: Anesthetic plan, Postoperative pain management plan. Re-evaluation prior to induction: Onur Martínez DO. Health Status Allergies: Allergic Reactions (Selected) Moderate Reglan- Itching and swelling. Severity Not Documented Bactrim- Edema. Biaxin- Itching. Lyrica- Swelling. Sulfa drugs- Itching., Allergies (5) Active Reaction Reglan Swelling Bactrim edema Biaxin itching Lyrica swelling sulfa drugs itching Current medications: (Selected) Inpatient Medications Ordered NS 1000 mL Soln-IV 1,000 mL: 1,000 mL, IV, 15 mL/hr, Routine, Start date 12/13/22 7:25:00 EDT, 66.7 hour(s), Total volume (mL): 1,000, 131.1 kg, 2.43, m2 Prescriptions Prescribed Keppra 750 mg oral tablet: 750 mg = 1 tab(s), Oral, BID, # 60 tab(s), Refills(s) 0, Pharmacy: [facility], 163, cm, 06/23/22 7:22:00 EST, Height/Length Dosing, 130.4, kg, 06/23/22 7:22:00 EST, Weight Dosing aspirin 81 mg Oral EC Tab: 81 mg = 1 tab(s), Oral, Daily, # 30 tab(s), Refills(s) 0, Pharmacy: [facility] 1986, 163, cm, 06/23/22 7:22:00 EST, Height/Length Dosing, 130.4, kg, 06/23/22 7:22:00 EST, Weight Dosing atorvastatin 80 mg Tab: 80 mg = 1 tab(s), Oral, Daily, # 30 tab(s), Refills(s) 0, Pharmacy: [facility] 1985, 163, cm, 06/23/22 7:22:00 EST, Height/Length Dosing, 130.4, kg, 06/23/22 7:22:00 EST, Weight Dosing gabapentin 600 mg Tab: 1,200 mg = 2 tab(s), Oral, BID, X 90 day(s), # 360 tab(s), Refills(s) 0, Pharmacy: [facility] 1985, 162, cm, 12/06/22 11:37:00 EDT, Height/Length Dosing, 131.1, kg, 12/06/22 11:37:00 EDT, Weight Dosing Documented Medications Documented Humalog Mix 75/25 KwikPen: See Instructions, Refill(s) 0, 25 units Breakfast, 35 units Supper Tylenol 8 HR Arthritis Pain 650 mg oral tablet, extended release: 1,300 mg = 2 tab(s), Oral, q8hr, PRN Pain, Refills(s) 0, Pain Victoza: 1.8 mg, SubCutaneous, Daily, Refills(s) 0, Blood glucose atenolol 50 mg Tab: 25 mg = 0.5 tab(s), Oral, Daily, takes in am, Refills(s) 0, High blood pressure atenolol 50 mg Tab: 50 mg = 1 tab(s), Oral, Bedtime, Refills(s) 0, High blood pressure cefpodoxime 100 mg oral tablet: Refills(s) 0 hydrochlorothiazide 25 mg Tab: Refills(s) 0 lisinopril 20 mg Tab: 20 mg = 1 tab(s), Oral, Daily, Refills(s) 0, High blood pressure omeprazole: 40 mg, Oral, Daily, Refills(s) 0, Control of stomach acid oxyCODONE 5 mg Tab: 2.5 mg = 0.5 tab(s), Oral, BID, PRN pain, Refills(s) 0, Home Medications (14) Active aspirin 81 mg Oral EC Tab 81 mg = 1 tab(s), Oral, Daily atenolol 50 mg Tab 50 mg = 1 tab(s), Oral, Bedtime atenolol 50 mg Tab 25 mg = 0.5 tab(s), Oral, Daily atorvastatin 80 mg Tab 80 mg = 1 tab(s), Oral, Daily cefpodoxime 100 mg oral tablet gabapentin 600 mg Tab 1,200 mg = 2 tab(s), Oral, BID Humalog Mix 75/25 KwikPen See Instructions hydrochlorothiazide 25 mg Tab Keppra 750 mg oral tablet 750 mg = 1 tab(s), Oral, BID lisinopril 20 mg Tab 20 mg = 1 tab(s), Oral, Daily omeprazole 40 mg, Oral, Daily oxyCODONE 5 mg Tab 2.5 mg = 0.5 tab(s), PRN, Oral, BID Tylenol 8 HR Arthritis Pain 650 mg oral tablet, extended release 1,300 mg = 2 tab(s), PRN, Oral, q8hr Victoza 1.8 mg, SubCutaneous, Daily , Medications (1) Active Scheduled: (0) Continuous: (1) Sodium Chloride 0.9% 1,000 mL 1,000 mL, IV, 15 mL/hr PRN: (0) Problem list: All Problems Acid reflux / SNOMED CT 290749767 / Confirmed Arthritis / SNOMED CT 4545969 / Confirmed Blind left eye / SNOMED CT 208551351 / Confirmed Chronic kidney disease due to diabetes mellitus / SNOMED CT 8040592458 / Confirmed Chronic kidney disease, stage 3b / SNOMED CT 3293628468 / Confirmed Diabetes mellitus with polyneuropathy / SNOMED CT 7507930133 / Confirmed DJD (degenerative joint disease) of knee / SNOMED CT 993740786 / Confirmed Generalized osteoarthritis / SNOMED CT 636603400 / Confirmed Hemianopia, homonymous, left / SNOMED CT 45467498 / Confirmed Hemiplegia of left nondominant side as late effect of cerebral infarction / SNOMED CT 0120332235 / Confirmed History of CVA (cerebrovascular accident) without residual deficits / SNOMED CT 9146895360 / Confirmed History of deep vein thrombosis / SNOMED CT 4061320789 / Confirmed left leg History of obesity / SNOMED CT 8370023844 / Confirmed Lumbosacral radiculopathy / SNOMED CT 1592623 / Confirmed Seizure disorder, focal motor / SNOMED CT 960183333 / Confirmed Resolved: At risk for falls / SNOMED CT 481753513 Problem added when Risk for Falls Careplan was initiated. Resolved due to patient discharge. Resolved: At risk for falls / SNOMED CT 208 (more content not included)... Normal [facility] Comment on above: Result Comment: Elec tronically Signed By: Onur Martínez DO.br\Date and Time Signed: 12/13/22 07:37 EDT Consent for Treatmenton 11-17 Consent for Treatment [id number] [id number]# 1.00CD:127 [facility] Patient Correspondenceon Patient Correspondence [id number]# 1.00CD:127 [facility] Outside Records Officeon Outside Records Office [id number]# 1.00CD:127 [facility] Consent for Treatmenton 10-16 Consent for Treatment [id number] #1.00CD:127 [facility] Consultation Noteon 10-27-19 Consultation Note Chief complaint: Low back and leg pain History of present illness: This is a 77-year-old female here for a chief complaint of low back and bilateral leg pain. The patient rates the pain as a 9 out of 10. She reports the pain is constant but worse standing or walking. In addition to the back pain she also has pain in both knees. She had recent injections with Dr. Patrick. She does not want to have surgery for either issue if she can help it. Since her last visit she had a consultation with Dr. Oliver. They discussed removing her stimulator but after Dr. Oliver discussed the potential risk of a dural tear they decided to leave the lead in place and just remove the battery since that is what really bothers her. Since I can remove the battery she would like to have it done here. She is still using gabapentin which has been beneficial to an extent. She denies side effects. The patient denies additional neurologic symptoms or issues with bladder or bowel control. The patient's past medical, surgical, and social history along with medications and allergies were reviewed. Review of systems was done on 10 systems Physical examination: General: Pleasant white female in no acute distress. Patient appears well-nourished. Vital signs stable Head exam: Head is normocephalic and external ears are normal Neck exam: No tenderness Cardiovascular exam: No signs of poor perfusion. Peripheral edema in both lower extremities Respiratory exam: Breathing is unlabored and there is no wheezing present Abdomen exam: Abdomen soft and nondistended Back exam: Bilateral lumbar paraspinal tenderness. Generator site in the right flank is unremarkable Musculoskeletal exam: Strength 5 out of 5 with the exception of 4-5 dorsiflexion of both feet and both great toes. Muscle tone is normal. Neurologic exam: Sensation intact. Reflexes diminished but symmetric. Psych exam: Affect is appropriate. 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 We reviewed her x-rays. She has multilevel spondylosis and disc disease particularly at L2-L3. Oswestry disability index score was 58% OARRS report was reviewed and was appropriate Plan: We discussed options. Since the generator is causing pain and she is not using the stimulator we will set her up for an IPG explant. We discussed the potential risks and benefits of this plan and the patient was in agreement to proceed. I will see the patient for follow-up 1 week after surgery for repeat evaluation. She will continue the gabapentin and her home exercises in the interim. Normal [facility] Comment on above: Result Comment: Elec tronically Signed By: Christian VELASQUEZ, Dustin\.terry\Date and Time Signed: 10/26/22 21:06 EDT Office/Clinic Note-Physician on 10-26-2022 Office/Clinic Note-Physician [id number]# 1.00CD:127 Normal [facility] Patient Correspondenceon Patient Correspondence [id number]# 1.00CD:127 Normal [facility] Patient Correspondence [id number]# 1.00CD:127 Normal [facility] Patient History Officeon Patient History Office [id number]# 1.00CD:127 Normal [facility] Coding Summary.on 09-23-2022 Coding Summary. CD:[id number] W w+PGhlYWQ+ZR1JCEUuR08 boJGdlE7lS2UIJUvOTzle HVEBMOiCMsNsguTjWR3fy XNjZXJu IC8+IG3nWMKiNqqrkQNmd 4V1kLZ2X88lti4pGVhdaX N3TYTgJmPlemfue5kjuTk 6IDcuNmluOyBt DAHrkI16LJQ1uV72Xb96z CSbiYKbw4ybjId9VnCiNE PtKNN0cJoeXTohe9WlHAW pS90akVFzv8U8 WUBqpFhcpROpOgBzfCX7m V8eDLlecjdge3fowsowSv g3mp73oLQni4F3nKO2J7A whpY6ZSOmxWBv DauttLZBdR9gvuuae2mqv foxXaSkLGWrXAg1IXr6WH RskMhxLpOkUI18UJZ7MCI uvzXmG2AjPTUp zRzhWlA4c2T4Xg4YF8KZV ajmO5YARIGEJWcqhTV+PC 51yy46I7SlEmfmXex0IUQ sZCC3kNI4nJ9b EJNmUOmgg1A6oEO3A5Tya oJdyh3ym2haQMEpTUevR8 2jlAOxc7W9OKNtrOG8FST cwBmbMmKkvR42 Oyc+JHWxoPzkd7JzZfotf 4pxt5slaYo0HrxoWGMngi KfwEdoGTP5v0JoQf1xSUZ wwHH5zLP2qF4a HmBeEsF3NUzvG556ZeJgk BUaZprqG64uU3WexCF+PH PoMkw5NFFptBzbQJ1rX3F hZGRpbmctbGVm dNwnSC3wJWIsjmzoHZOyt S2wOLSnI1k1MsWwClR6UO otI6WsHNAmlkxmUk34oO1 uEuLzSsO7NMqi N8WslzL6NCCciVLxEFofE SU9E87cs7T8DGFyXCMpUV N3rXF0yT0neMgedyyiyPW mdDsgdmVydGlj BYqwXKhnV213DAIqkPkkG kNvZGluZyBEYXRlOiAgMD QvMDgvMjAyMzwvdGQ+PHR gTAB8bVpnAWUz qHFhFQbrLi2haEtkhDrlE Q2uUMUmaxwlOKEwcS0gTU QetCTknIqjRV3yPLNeoqi sw151OmHmRHQ0 VWGthURiQ6ElzL8wAtAvZ BPiTTZpG5AemUSjBZxpS9 11DBzhIjM2TPRpshDaL7B sLWFsaWduOiB0 c9R4Xe5Kj3CnutfgS4Jae SBhAqKhXiaiDLe1V2NzMs wvdHI+XB36JTAfYN43EFs 2JDM1cRrxSIgz NWVcZ2BycD7hEeSeKKTpL GRkOyc+PHRhYmxlIHdpZH RoPScxMDAlJyBzdHlsZT0 fAq1qHWHiVRFv rSnqrCHgClWom7llJIViP PxxMU9qxIouZ1CmaIJ3WC Unj6g7Vq51S95xG5PstOL +WBSdaIX5dJT8 vK5bCdKtRmQ0VEazP034E wOxrLHyWabwo4ztk8xihX q8ZeX9TWXkorYphWbsEIV 0g2JmNm20P86v IHdpZHRoPSIxNSUiIHZhb Rlgui5zyZ6wSi6+PGNvbC W7fXK1gO3hBgVxDmK3YNu hQ065ExIknZKx Srxel1qnk4vmpMl6RiKkA LZtrgHtxLhmYLB2d6HtRg 66T8XaaTivz6JhIbh0wd6 8dOXnq8T1qTE6 M4LkPHLvkoxniTQntVasX M4pBMObzdwrKFTraQ5bKG DdE9e6RuSdWoP0HYsiI6Q vndW6XDCwrVAu KTPdlGXNoR8ldzqei4dbh rhaAnDcQFDdFEw7KAm9OR DylUptVoVvIWV1GmH7EFT 0fOMaoZ7rpXgp kjspjS4gXgl+WLB2wOFsi TPVOW7gLfwfoCZ+PHRkIH Z3vAjmRXwrGUNrxQ9vCOU wK1q7FyFdYsC7 WHetT6TwysW7FIYdtDSiO VGakAYHxV5bxdrpd8moiq fnKgOwVJFwTZc4PGz5BYR saWduOiBsZWZ0 MhD2UWI4hMMwdU5pmYspo ogtmE4aLwh+QmlydGggRG S2FGh1G1AnZdh9XELxgDi sCD4tpAJeXNnu Fo0xzMngwZhaUN7ePSQtb qjbv443NzWex2muBQGpeK GxROtgFPP4U72cx3R3DOI xXTIgBOW8gTT7 qP1orOstkoavdKDznNnrc dQlzSnzGOupLGtbB500MK WsiLxnKkSfKIt1R1SxBmo 5YPAruQihZX7a iPQsPXmrAt3pnOcoqKefF J2iESPetpzbd532VeZfa7 jhBFFzqMVuSQglXUD1H29 ny5R0TDAhLVXp DOQ5nNL6uR0vaMlzafnwj GVmdDsgdmVydGljYWwtYW alD316ZZXqsOwoTuWiiKl 7G0WzLce6KACc zPwfHE4nvGWfFKtgZv1sy PerwFbkRT5bFYVwqebmi8 38AoSwc2zdQWSwsPViCDi jNBO8E24lg0A3 PPFtNNEkUMS3qGI5yI9ez GlnbjogbGVmdDsgdmVydG htHSbnFHlqA049HIQtpXr nPlBhdGllbnQg NRjcUOp6R6ReYknchAL+P V79AKObWY42hITnaUMni0 zutZl8WhCgVQYwVDY8kDc fDUfma1BtIHFv O59bfSXsn0P3XQVexFmev QTuZoEzfMQ9tV6qGSqklm jvo0rqbjucAiefc0zxzg7 3mR86R68wOGry ZHRoPSIzMCUiIHZhbGlnb r3mbS5uVt7+TELhwIB1mR A9rQ3iOJCzNgV1WXjqY78 9InRvcCIvPjxj e0fav6pppJu3WxQ9YGGnh vRlhPdlJOH3o2IyRa34L1 9sIHdpZHRoPSIyMCUiIHZ xlKpoqr3dhW2i Ii8+WIMeuVT1nZO7cF0iZ kToVrU1KRucA226WlVazG PmSutvM03mB0LfbFX+PHR yCze3NLWmeMqx VS7pgBKnJKvaFi8lCEX3V sRsEbSgVMjfI6OwVJFuyd cstlclhMA2TGDjRYUtkY3 8Gn8kyJhcIPPd iTHQeG8ebaqqd7xeghdpI fUhGYFvLDg4WKt2ZKDhhR pgZdYuDYE0PxE7BVV3fPY ldZ1xjXxafizj pX8lA9ViFKNxuufwPt43a P3wKoYmWzR6MXazZrt+U0 mZL42uAVRKWmjNJJb1N1K iXpd4HVOqdOvo BI8fmJZxGFelXm7dlZdps HnqXW3hJLEbvxnlGIInjT 0bQWMltPDgyBvzSY8bKMB mxstnh951YoMb GJX6APMdrOFpP3FeqZ9bS qVdLIUwLZKhV0NdrJKbVJ mhD706LMddNnH7SDTwthU aG2YhDPSeyExu PsD0k2X2Ws7xZN9iNs7oQ CR2ZZ94JH39rRKmv0D5pR J8S1OqIISijwzmnojlvWV 3ACHvKWKfvX05 tJVsNGpzWk7pu8F9n297N CPsTNQuzV38Ru7jnXbyOB XobQUXpB6bnntoi7hhogl gIzAwMDAwMDt0 NIc1FKSpxWdlFmEqSAG1X vJ2TBZ8jVMiiD1mhHbcps nxeO7nBas+NzYgWWVhcnM 3M3ZmZhb1LEFr uDbvIG9ghWFsDXcjSf4mq NswfPfnFZ1fTRHktejfXW QwhS9nWYMkoPRmjVwmDD5 nEFKwydics547 HrSeXQY4QJNsnXGfO6Uiv O1kTvDyCNCsFKHbS2GcfZ JjNBevJ435WAgiTvM7PAP qwoMlV8LuBWEn yJemNdC9n5Z9Ra4FDC7kp MT7Z4FpWtr3IHXtvWyiBQ 7faOTzSCpeWf3aaGznyFx cXH4fXUVnthmj OMVyqV1jJGMlzYSqjMzwE Y3pLASgksgkd287CqXhLI Z0CAWqlAYqP9GhjS6zDgI xTGTpUWKzK1Zi wKPeXHsrM821OMfeRfY2Y AFcfgKiJ5UpDYWovXddHe P0y6O6Mz1VzPLbRVCoDU1 7VS49ZF34B3Py PjwvdGFibGU+PHRhYmxlI HdpZHRoPScxMDAlJyBzdH szGQ1pBi8aTNFeDGOziVx eoLGdIgAje5pe AGUyAKtoQJ7hhUwvE2Dbx QP7GKFou5f0Iy03R68sC7 JvdXA+ZLImaEQ6eOK8lT3 mFjMhCrB0TYrp K199TiSlrPHnXqwot2lys 8ucdSi6MgSzQDBdgbChrG ipIJJ7o6AqMv87Z22uAKl pZHRoPSIyMCUi VGHdjQsqqp0wyU2pTl7+P MWyqUJ4iFR7aZ8yIfYdSl H8NQkfU940ZwBwqBMsEoy pQ12wI6XfwTW+ SZMeMlj1FTCqtWpjUC6an MQlCXrmKv1dTLV4KsDeQf XlNZbqS6OsPNVbulpgcvr ktWU4PXQuKNMw fM36Uu0ypGdfGz6rRCHqD JU8LGObjJNeZ0TrrV4gAk WnNEYmEWKuN2MpaOGgSPc dL620NNyfRtB1 MIHvveLqT7JiAFHuoAymW uF8s3D2Ux8MoKyzfMFjCG 4kAqMkOYs1L0GqQsk3NAV taFdqHC6uyTDi ALbhSo9wyBqxrGqlJT7gH KJnjfshe460MiOtx6xdSB FswCEyGCvwJWW3J28az6S 6XMSiCIIpBPJ1 wGQ4cD1rdYqylxilnKAjf DsgdmVydGljYWwtYWxpZ2 19JPGawQdySiVFTym3L6A dKqw7NKCruWsp OQ6soNYfXUqoOg8dlPttz KtyGU3wCLWbbxtbi427El Nha1ezDEUdhJUhBPehOFC 7V56ya2V4EXSo ZFJkDCM4uVN0tC5qsPhll jogbGVmdDsgdmVydGljYW btMBvoG812MROkuIrlEl5 HYwv1J4TlLfr0 CJOrhFszJY8lzQMeDVfyL r9luKctnIgnYH1uPBDzdy try311ZjShb2rjONFzkOY vXVryFQN8Z77e b8G5OEOpSXWhEKN3wLL7o G4rrNccortxrGSecObggx FskZlnIAjtGQkbS322LEH vcDsnPlBheWVy OjwvdGQ+SK23wa00Z4UxK lprGax8AQAzRBO5tQU1lW 1kKLOwERhnq9K4gIE5M1P bqqHcbt9et6fq YXBzZTog (more content not included)... Normal [facility] Referrals Officeon Referrals Office [id number]#1 .00CD:127 Normal [facility] XR Spine Lumbosacral Minimum 4 Viewson 09-14-2022 XR Spine Lumbosacral Minimum 4 Views Exam Date/Time: 09/13/2022 11:47 EDT Reason for Exam: M47.815, M46.1 Report IMPRESSION: There is spondylosis of the lumbar spine most notably at L2-3, similar to the prior study. CLINICAL HISTORY: M47.815, M46.1 6 views COMPARISON: Lumbar spine x-rays from 10/27/2019 FINDINGS: The visualized bones are demineralized. There is no acute fracture or subluxation. There is no loss of vertebral body height. There is preservation of the lordotic curvature of the lumbar spine. There is severe intervertebral disc space narrowing and vacuum joint phenomena at L2-3, present since the prior study. The remaining levels demonstrate mild intervertebral disc space narrowing. The SI joints are symmetric. There is a implanted device in the right with electrodes coursing towards the thoracic spine. Ordering Provider: Dustin Gonzales FINAL REPORT Dictated: 09/14/2022 2:19 pm MosqueraDomingo alanis MD, V. Signed (Electronic Signature): 09/14/2022 2:19 pm Signed by: Domingo Mosquera MD, V. Transcribed by: DAPHNE Technologist: RENEE Technical Comments Radiation Dose: Ka,r in mGy = na DAP = na Normal [facility] XR Spine Thoracic 3 Viewson 09-14-2022 XR Spine Thoracic 3 Views Exam Date/Time: 09/13/2022 11:47 EDT Reason for Exam: M47.815, M46.1 Report IMPRESSION: THORACIC SPONDYLOSIS. CLINICAL HISTORY: M47.815, M46.1. Back pain and right leg pain. COMMENT: 3 views. There is spondylosis, with marginal hypertrophic spurring of thoracic vertebral bodies. The vertebral bodies are maintained in height. The pedicles appear intact. No thoracic spine fracture is evident. There are electrodes, that enter the thoracic spinal canal at the T7-T8 level, extending cephalad up to the T6 level. Ordering Provider: Dustin Gonzales FINAL REPORT Dictated: 09/14/2022 3:34 pm Sav Diaz M.D. Signed (Electronic Signature): 09/14/2022 3:34 pm Signed by: Sav Diaz M.D. Transcribed by: DAPHNE Technologist: RENEE Technical Comments Radiation Dose: Ka,r in mGy = na DAP = na [facility] Consent for Treatmenton 08-17 Consent for Treatment [id number] .00CD:127 [facility] Physician Orderon 09-13-2022 Physician Order [id number]# 1.00CD:127 [facility] XR Pelvis 1 or 2 Viewson XR Pelvis 1 or 2 Views Exam Date/Time: 09/13/2022 11:47 EDT Reason for Exam: Pain, Non Traumatic Report IMPRESSION: NEGATIVE PELVIS. CLINICAL HISTORY: Pain, Non Traumatic COMPARISON: None. FINDINGS: Supine AP film of the pelvis demonstrates no evidence of a fracture or other bone abnormality involving the pelvis. There is a battery pack on the right. Ordering Provider: Dustin Gonzales FINAL REPORT Dictated: 09/13/2022 3:08 pm Domingo Mosquera MD, V. Signed (Electronic Signature): 09/13/2022 3:08 pm Signed by: Domingo Mosquera MD, V. Transcribed by: DAPHNE Technologist: RENEE Technical Comments Radiation Dose: Ka,r in mGy = na DAP = na Normal [facility] Coding Summary.on 09-08-2022 Coding Summary. CD:[id number] W w+PGhlYWQ+CN8GJDUhY53 heBVqtS9zR3LNTHgYRrks SYROGHhCOfTfceIsBX5vk XNjZXJu IC8+CH2aGAQiUdbyoMHpi 9Z0gCT4I56mpe6aRDjppZ M9VUKbOkHybfcrv7rejRw 6IDcuNmluOyBt WSPixU33ESO8yS76Ff43s PTjaRMlh9oqdNo9TqAyAS AaLAU0sTymAFsgn0ZlIMV eR77nxVZut6R3 FJMffGyueOQyGrNzyMU4q J0pSNsqqzvas5omejzyDy m9zr67uSPbo8M7pLN9E7T ctfE7MJCfrIMp HzahiAXHaD7gkdjqj1pkw dmyUyLxHIBrEEy0FRx4TZ VsjNzjVgXlKK93DIL0WBW gecUsA9SvKLDe nVerBpH6l9U6Yo7GC3YTK mpxR2ONATKOQCyvqRU+PC 32bp88G5CqJopfOif4GWX qVVL3hDH0jP3e ULTkMBhtc6N2kMM7J2Jim oPguu4fu7irRKVbWIvfH4 9huNGao9F9BQCixNB8EZH jxMjbHaIujR60 Oyc+TFVqxTavc8UoHpzba 2ilw2mhjXa6HennMLTwet CkwUxtXUZ5c6UvVi7wBTJ mwLN5xAU5hH9q YhYpOxO8OEusO825XwCst MWyGilwU66nM1ZwaHH+PH OeZbo3HEJgsBaoTO2mZ3T hZGRpbmctbGVm vOsyEW2gSYKdzjafRHQzp C5dONDeK4k4QbXsHbB8WY liO2BnWIAdoymbUk65aT0 qBrYcQyY1KCoe U1YefmZ8QWUdlJVgHUyjM BC9R36sl3Q0IUAaGJAiEF N4jJO8kT4doQucmkxjfYK mdDsgdmVydGlj GXieMWlpD841BNLoyMhoP kNvZGluZyBEYXRlOiAgMD MvMjQvMjAyMzwvdGQ+PHR hROU8pIhhQKVv dYBdAJlnSs3kaGzkzQqdF I4pIMDlhsqpYOAplH0tCV NxpJKziMqwLV5vRJDtbun uz095KrKkXWV1 VDWppMFzV1NstM9lEbSuA BDyBSFxB4QcsHMmYBypV0 64CBblGlX9FINlkwYtD1R sLWFsaWduOiB0 l4R1Jl1Fu5UrgglbL7Yaw CGqEeEgUbttMFi5Z4YcWn wvdHI+RJ62MTGlTC62AEy 8KDS3fFnkPHzc WVAqK3WfjJ7dGtAvLOBsD GRkOyc+PHRhYmxlIHdpZH RoPScxMDAlJyBzdHlsZT0 mXk5gJUUnEQAa zBdcaMTaRjReo8whTUIpZ NdgGD2lkWqtQ2VzeRK5SA Kyw4d5Ln52P16pS1PwyPS +DIBsgFW9gPS0 fK0nBcFpEiW7RAgmW662H tVktNLlMxjmv7mdq4nzuC l8AdD2ENMhaePjsSqiAOJ 3z0CrMn32F79p IHdpZHRoPSIxNSUiIHZhb Nglom7tsN0yFw0+PGNvbC M8nDK4gV6dWlPmJcE7OSv mG935NqQhvQTe Yrvbs0gms3oybSq2XlWlG QUfgqEdbIzzHCL6i6BkVl 54L4LnqTvjo6TcXcf6aa1 6hMNeg6Y9lLV2 R2XwWHMkqrrmmSDlrGknP L4cBNSfmpqzDGTyqS2nGQ AtT1i7LeZuVyX3SNouX4I eccR3WPExnPXr TRRbuDSNeW5qofpqr7aos enxWyPbTZNbSEm9HKi3FK NcvGbgRnBhKAB4CaJ1PND 2vOExcL7vcJys cuzouP7zAoj+LRX3xAFyh EDREY7qIkewcOO+PHRkIH G0aFnyDVkoHTEqmI1qFOS qC5r2RsBzRiQ8 MNclU0JroiN0PYRfjQZbX SLokTPQsS6ccuhfd6szzw drEiRlSHDtKTf1CBx6HRL saWduOiBsZWZ0 IiS3GBU3zSTquC7ixAadn iqsbU9bGea+QmlydGggRG L7HAh0L1MdDns4WKTzmNm bRM8trJOpPVqa Mg9mfEfxxOntRK2rGHIaa gkqi781CtEvm5rrFEMdbB IhZWseWLP7I27ec3G0ZPR lJRPqDGY8nJQ8 kI7zjXdrzapglJGmtWywp hBctHsaVQqxRVwtN000ZF LkvUivDnGqBYt8W5OhEew 7SSCsfYotSV5m sQGbJBpfGi1grMjccCqoM G0xKHEhvzeiy330DxEgi3 uaEICdsDTuJKjsCUS7Z93 cr3H9AIVcRIAa PIE3iFF3hE7beAwvhblqq GVmdDsgdmVydGljYWwtYW nnQ409FQPoaZrgAgFomOf 6H8AmQke3AMEi zHjaZX4maUPtCMjpHs1zp JaruIwgBZ8aYTUfjoozt7 89TwNpi7juLAVjsLQcDDa fJJI6P80fj2I2 UZYyXBIkVBY4kVD3jH4fn GlnbjogbGVmdDsgdmVydG zxFVbzYMuvW103TRIrrLm nPlBhdGllbnQg AHtgZYw2T9VqLkquaZW+P N17OEYdAR55fMUrtIAdz5 hmeYx1IyDdKAEsASJ2uGb mYVktk8HoWYZb F60qsVHte1Q9QQOhrSuac ZNnUfKroUM7lS4jHSutjb afp2rgcemiWupqe2zksx3 2mM83O41uOXpk ZHRoPSIzMCUiIHZhbGlnb i1geR1yLb2+KRTsrCF7iY V3sW6iVZSgDjG0DUrzE25 9InRvcCIvPjxj u4hrk2jteGn1KbZ5UDSdn fHwiAkbFZN6k1QmAg88B6 9sIHdpZHRoPSIyMCUiIHZ wyFmcmo8hlL0h Ii8+RDSnqGM4tHU0oT6iX lGaOtH0DPusL112MjToiI FcRgyxS70uS7HjzAD+PHR iPie8PXUglZxb XW2ymDSrIEvaHf5cZVM0Y eQdRiSwCUwkR8DaSKGkby ttiokocBT7NZQcTIOdxD4 2Di1loFpzTVCx gQCVsW5ppygkn0wcvpjtT tFsSEPlIUp1JAo7VGFfyA ndUzYkKYN6OcR7SDA8tMG jzQ3mjApooeru aI6xY4XpLYEphbvdTj61u O7wYbCxMmJ9NPfjXjg+U0 vMT20aSHOXDdjQCNy6K2V bBna9TGYujGzk BR1ghNBjCOycRt8bdRydz YtpGS0vERYvprijSDRrhU 2vNFRvhMAfmFdcLU7kZEK gxaxmp053BbIy BIS4CRYcnPNvY5HfbJ5jF zUyPBTjDEQiI7KrqRAaQO mvB755VMewLfS1DLNzlwO cO4YgVHDhjFqd RyI7x8S8Nk6fHO4pEu2aS FY0VF60YF17sLJjg2D4fX R1X8QmOPCqrgcwulhpqMK 8IIAlGNTnnM33 hFOxHIbqNw2iv6F7c122S QCzDKJfkW62Lc7wgKttFL ZwoNFIuZ1qrudct0ixhqf gIzAwMDAwMDt0 YLw7VPWzaLirKiDiKGZ1E lL0AIL0xAMowZ9rbMsmdq vnvP9vYwp+NzYgWWVhcnM 5X6RbFmm1SYEz hCacMS6xgLWjQCceMa0zs JjcmInjOI5nMKOtyoesSR HsbK8vTABekLPizCwdVS9 hHLQfjnfha165 XzLfQSJ4RQYlgAOdZ8Hjh I7cHjLfRPLjPJGfP4TolA GfXKnpF046MBkcOdY4ODP gpuNfI6FsTNJo jRilOcH8r3U0Tl1ZHA5um TJ8T7HoEor5ISQkwAvxOY 4caVPhDHmaMl3djRxjoGt bSN2vFOKvbrne DLMavB8cEEGoyYRjrEfbC Z5uGUJqlnvlx564SsLwZJ O6MNTiuLRxO3NbzN0xRxM uXTEeSCHxJ0Pu tEIwHHjiN546UWhlTwW0Z OZwaxOlG4ArAFWrpElwZz F2x1C1Xh1JATHmGKRbnOJ wDiW7U9HvOnbf dHI+BU46VABrPF99yPRpl PLxl3vacUs2RcGjEXYhOM L3mWioWVfqf9OqJJBsH84 qpDEna7T6UWHh nJrtaLQtStDgeWG2nN8fE Qnwmvxuj8jckxuxTjnff2 ueha55iQ62Z47nFIobSRV oPSIzMCUiIHZh kTpdon1nyV2uDo1+PGNvb EN9yQT9aP0fZxEcCpU8MN npN477DcMzcRZfFppgh9r qw0uhaVy9VzQg JHUrbxUxaQnsDPZ7y1BgX x87G09tBVzgDUDfNRUjTJ AiIDZryUifmn7shY1rJu6 +DG4mz1ratq09 sQ14fCK+PEOcRQA9rMpcH XgfLJKbaA6uQCtjIrZ7MC KzPaFkbY60zWZqSPnvSg4 gaKuodZejJB1z WKNclnctx299WkRye8gsR DMuxQEaFOkfYND3R88qy0 W4NDKdKWEdDIZ1oSI8hA8 hbGlnbjogbGVm dDsgdmVydGljYWwtYWxpZ 361CAAnsEomArRpuLAfM7 oxjnFSKQ5cUgojqLL+PHR gYAY8sJedUYnw ZLTzkN5pJFNjU8b5PwNuN yT3QKtwY4LlbaK4KGIasF AyOULieLUWjX8ustnli1m vcjogIzAwMDAw PYd4AXz2XTHwwMabAzKgD RJ1RvR7XMN6ySHkiY9mvW skltsvhU9kHvm+RklOOjw vdGQ+PHRkIHN0 gDiiTQhkYVJneI0iXJQoC 4p7ZcVfWxN3JThfC6Izmb P7GNWfqJKhGUJbfZHGsT1 wrusnf5vngdar SfCzKZNsUVz4VHl1XHKwe ZbwKyPmLCV6WcH6XWQ0zZ SmeI1paVuqzhxcmL4sGvo +TVJOOjwvdGQ+ OSWhBFD2rIqzDEcgVFFkj K3yPKWqC3g6YcIoDqU5KO xwD6KvzwQ9QUUbsIHkYLM zhCRFpW8unven k3tprufkWxUxAJVaLPy8S Ni5XYQmsIcaXsVlZJV3Xg H3BON3yHQtrU4drYpfkmk akV5nDvp+UGF5 HYX2MI26JR44Y3NqHvczv GFibGU+PHRhYmxlIHdpZH RoPScxMDAlJyBzdHlsZT0 hXk3eVJAcPKXb bGxhcHNl (more content not included)... [facility] C Urineon 09-06-2022 Bacteria identified Cx Nom (U) Microbiology PROCEDURE: Urine Culture [R1] SOURCE: U CleanCatch BODY SITE: COLLECTED DATE/TIME: 09/02/2022 13:19 EDT RECEIVED DATE/TIME: 09/04/2022 13:28 EDT START DATE/TIME: 09/04/2022 13:28 EDT FREE TEXT SOURCE: KENISHA Argueta APRN-Kellie, Ellie FELIX, KENISHA-C, Verónica X Verónica X FINAL REPORTS Final Report [] Verified Date/Time: 09/06/2022 12:04 EDT >100,000 cfu/ml Escherichia coli SUSCEPTIBILITY RESULTS LEGEND: S=Susceptible, N/R=Not Reported, Blank=Data not available, or drug not advisable or tested, I=Intermediate, ESBL=Extended spectrum beta-lactamase, R=Resistant, TFG=Thymidine-depende nt strain, NATI=Beta-lactamase positive, MARITZA=mcg/m;(mg/L), S*=Predicted susceptible interp, R*=Predicted resistant interp EC Antibiotic MARITZA Dilutn MARITZA Interp Amikacin <=16 S Ampicillin >16 R Ampicillin/ >16/8 R Sulbactam Aztreonam <=4 S Cefazolin 4 S Cefepime <=2 S Cefoxitin <=8 S Ceftazidime <=1 S Ceftazidime/ <=8 S Avibactam Ceftriaxone <=1 S Ciprofloxacin <=1 S Ertapenem <=0.5 S Gentamicin <=4 S Levofloxacin <=2 S Meropenem <=1 S Nitrofurantoin <=32 S Piperacillin/ <=16 S Tazobactam Tetracycline <=4 S Tigecycline <=2 S Tobramycin <=4 S Trimethoprim/ <=2/38 S Sulfa Performing Locations R1: This test was performed at: [facility], [address] [place] [address], [phone] [phone] , [facility] Comment on above: Performed By: #### [id number] ####[place] [address] Coding Summary.on 09-04-2022 Coding Summary. CD:[id number] G h0bWw+PGhlYWQ+MK3GPVI pN45zbDGdyN7mD8UJRKfL SywgQVBQTElOSyIgbmFtZ A7mvYZkQTTm IC8+DY0bIJXnHykunVJas 7X8jNC0C04bmx0jOAtlnU E5NFWoZfGudiqcp7gcnAx 6IDcuNmluOyBt ZKIfoW89ZWJ6nS87Ki16o MZrvTKxj6smfLx5QyUpAV UlWRY8uFiwWHpmi3ImXTJ xW39ikAYje0G0 RAOhtYhbgHIgFlKwkQY2y C3pNFmqbhmhv3qvnwqaVj n7hj03xNIug3L6sXY3S5B pseA2NCFblIGb HuiqaGZVhE0tvbqhu7agj chgYbQfBYShEFv8ZEu4JI RzlApkZoPcPG21ARY7OMK uxpXfK5AiMPLd eLepYpH9z5C0Uo4LX6IJL yfsK6NGHMABLIzaxPM+PC 76bq77H5KoRvfcNmq3DOV xZCN3kKA5fD0r FAWkFQdou8Y9qDA8I2Ybp aNpol5xa6vqVQJnKIitU2 9vzWGjc2Y0OFArySV2ORA fqYyqVxBgrU10 Oyc+JGDlyBmxe7UxSaifa 1fmf8yxsMz8QjccZNCdqc LtwKhtINV3a2XhVz1zIBY drLL4yPC9lC5r CmCzIgD0BBglM170SoGtr ETkZuwfE09hC0AjcLG+PH JxStp5LLRywYizOZ7eT6O hZGRpbmctbGVm rJhdSO7iEEEeknhrSQUhd C0oTFNhN1x5VuFtGzF9JC loK3BgTUUfbssnZk33tZ5 tWeSzHiH0ZAwc U8LqcuQ9EVTyrUGnKDqzH AY0T73wf4W7SNAeSFHvGW H1sAO6kI2ilLnrfgyokMA mdDsgdmVydGlj GObzURbsQ567JUYhiVxcY kNvZGluZyBEYXRlOiAgMD MvMjAvMjAyMzwvdGQ+PHR sZCR3oVdqNKVg jCNhTEdqFu9oqHqxuBeoW Z1cIXVilzcwGFYjcI2jXQ EpbBNuxRyhFF3oOGAnmxr nd659LhWcEAQ1 KSNhnDWiD6GcsT3eRpZuV IFkGTCnR7OnoQQtHQeiL4 97PXqjNzL9VIUmxxJqT8T sLWFsaWduOiB0 b6R1Ka6Tg1NlvwbtX4Vbp VVcZeGtXdstFEw4K8VeHa wvdHI+IB11EIYbOS27MJv 8EFL2uNhbCGfr ENLtM3SryL4sVsEtZTSpF GRkOyc+PHRhYmxlIHdpZH RoPScxMDAlJyBzdHlsZT0 vLt0gAENkEDAk pHmfxVGqBjBir9fuFXEhP YecQC3krIoqF9OriCX1AX Txk8o7Xq12V65zE8SjzCP +MPAncEB1aSC4 gC0mCmXsQkB3IGnoP825D qHifDIxIeiqz7gnn3jqpR c8PnQ8BGQgyoWiqPkjOWK 5q9LaNg78Y90p IHdpZHRoPSIxNSUiIHZhb Cuemc1drG5fIk1+PGNvbC A6hHS8tV6rJcIlYqJ9ZVp vK560QfQwmOBe Iokyu2ngg1syfDd7GkOzO OHoiwFtvUmeRTE5u4EmSs 12J7PzwBfyp7JlMaq3wv4 0rRDtz1O6zRV4 A8HwDYLgqeduvYIyyKtkN P5kIBYpiilaSMTszC9aXZ GyZ3x8JvJrCcR8AVffE0J lucH1XKTzpARm DUDecVXAkS1uhggtq6nqb actNjIaHXCrMZc6NPl4NE XrtXzqGsGbKRR9IfE0BDW 4eDOwkR9xlEaa tsxbsY2uPss+FLT7zULkh BGGUX0kFqbxaCD+PHRkIH O9kOoiIGbqUEPslC9jWPN mB3d0XjMzNaP0 XQutY2VhapJ0CAYcmKBwL ERmeMLXzT1pjfdjl2oiba arUuNxITGgYWp9ECp3MLR saWduOiBsZWZ0 SyM4DAX4lXVyeC0zxMqra zrviF4vMyu+QmlydGggRG U3RGu1L4VtYuq0YJYftHv fSU6wkGGaSGsg Vi8lxSjskRbtPI8rMTWbb hhyv303MoVxl9ejDKYqgT QkVZokNOR5N48na9Z0FUW fHCVzCFP2wBW0 bJ1heCjrtwlvqBJbaCaja oUmtHuuFSdhNFcqC324ZZ NbsTwbAtStKCd3W9TrHwm 8QZCzeIfhSX0n aZWqOHaySs4owUdycNfjE O7eMXGfiwhpj956XaTne6 uxWQFcoUXxYWoqTXD3I90 ox7D2JOSdSGOj MXE6dBW3nQ5yiIkebnxka GVmdDsgdmVydGljYWwtYW bpR618MNLydNqbBaOhvYj 0P6YqKtm6FOXu fKcyUJ2pbKWlDIakGe8rd LhlfWsdPN5tSZLcfewvt5 88GjSwm4hrXZAqfSOvFBr nLJJ9G48bk4H8 UAFiADReXQG6hDM0zN2wt GlnbjogbGVmdDsgdmVydG hpLZqeQRqhY740TNNeiDd nPlBhdGllbnQg CXscFTd8G7KhHdxonBU+P O63VXBzHA90sAGwvHYgp5 htiQg7AkTmBBWeGMM7wKy jCLztp3XoVNXe B36wlQBny9Q3VLYsvWdif IRcJoIzeTX4kK1sDIkvnr atl3irjcimBmecz9qgiq9 1hK97E29jBDox ZHRoPSIzMCUiIHZhbGlnb q1ueZ0eKg3+MQEspDL1fM P9gT3kASRwKwK9IDphC68 9InRvcCIvPjxj z2slu8qkyMe5ZqY6OKPyy aPeySagJJJ0d2AuIz37O5 9sIHdpZHRoPSIyMCUiIHZ iqBxcma5jwW1q Ii8+VCFqcTQ0cTJ0eR1yD kRiQqS4TUosX003NoTbuF KwYrfqO59gM3NscIN+PHR mXrb3NKBrkGrp CA9loPOjBVkyJx0fGYV3G jWaNmVeOQdiV8DxWREmvr yljobpnBI2VXGoFTKurX8 4Tl2rfDsgDCBy zHALgC8mtsemk0igngnbG pWeDULvCXm1FVb3IBPfrX tmAaRiBAG8NbS5DNO3mMW smE9ivYbkuvhl aP2uA5ViVJXxgsmjUw74k D0iTvGtMaV9TCgpQhi+U0 aXE26lHSFWJujCUTy5H7W yZio7AZCrxJiw JE6loEPoCHwkAp6hxHcny AalWS5qWTNmqixbAXKxhB 3kQZGzfVKesGovBC4mYMQ ypijjd603MfUp UOE5AMJpsKTeY8YbbJ1tO sVfHGIbHXXeL0GugBHsZA gqC076OAvqHyT1XKOwfwF gQ4ZkELGbmHvl YjK6j2W4Hi6aZH7kWs6dL XN0XP76JW41vEQbk2N0zS G8B9MgSXTtzkuhjceqlOL 7UDYeZRDkiM39 oIEeOQdxVn0kj8E9m577L JLrCTFfkD69Ev5riZsjXA GwaZAUhM3yaqrjd7ssvva gIzAwMDAwMDt0 YOd7PRYwvVwiVjIbASZ0B uM8YCN4uTEgoQ0avVfmtd qsfI2cAsa+NzYgWWVhcnM 3D9QtNmb1RUAd kAgmJO3iaPWiZYjxOp5ad SxqyXtgGH1mCWJjwgdtGI BpaS4eLYSlnWJvjDqxTP5 tJPVogoteu991 UdDeTYY8UOBimQQaM2Qgq Y3qCdIvIYPsGLAxN0QtjU DgRAtlR144EFyzZuR2NNZ eehTsS0LbAEKu yZcfJzK3n6J8Yu0TSB0tk GN4G3CvBqc8BLVrnBamYM 4ymSAmEWyvWo9laJewkMk vGQ8kXTYxrpyp QVEuuH1uHBZhjAGzwVtbH N1jLGNivjcli143JgWoXE R9ALPluQVgX6JsuC0sXbT nQKJbQFHcB6No mDKaWEchE491RIxdIoZ5U ZEbosAnB2VqJZAuoUbiTm O1e9A5Ro4KIPdpKC2csjS oUT4rjrN8X2Tw PjwvdHI+IU05USRxDT84n ARdfAUvz6fqbAa9UrJmNP CjJMP6qGawSVwul6FtOIQ mB93rhHPqq3J0 PIWmbSklyPDqZaHwoGC9x B4xOTgvldbte3nnvkbcFz iok7jxct01fI81C23yUSs pZHRoPSIzMCUi HKHvoMlepb9rvL4eJi9+P YYeaDD8uXG2mY9nAnFhJw O7YHbsY059VjSrnJTpCtz xf0dfs5oowLc6 BlAkITZndaUcoClyOQL0s 6KhYy11E90uRInfGXGzKK WwSNJgEWVwwLlswc4hsP6 wIi8+QF6vu4dc gc16cO07gKI+XFWiYCM8d IyeCJhvVHYzyZ9cAXzbKk I4WHLqKnOyaB34nCFgKTa tZh0qgUfquTlk HE9dZGItilujn677DiCdh 9adXITivYWoKXfkWJR4K4 4fb7A5QIOkPHXjJOU5hTL 5sF4daQxedjyg bGVmdDsgdmVydGljYWwtY QjbG079ZLZwcUahIdBrwN DgI1rxnhURFF1iOobbsSJ +AKBtLYQ3mYla MXtvXRKjpR9lFXYdB3u4B jRuRhP5YIgdP6IwmqR5VO BuqHSyBBIrtONPqS9vopi ub1sdxfgpHeMv WBDbJAw4RUo1VNParOchV wKxUWB4NcU8VOB4mQNwqC 3czWnkuagdlI1iWts+Rkl OOjwvdGQ+PHRk LCQ0sCwxJBdkUTLjqU4xK HOsF7f9QkOgYxL4MXfpV2 GwxjW3EHQxtXGfQNGvuZA FqE5knvpze8qw mvhnRfLkELKiHAl4BLo6B BCjwZdrKrDeQSP8DjZ6UD Z5pVWnxA0bbFthsonyzU3 wOyc+TVJOOjwv dGQ+DGBxIFY3aRyfIHhvY NZbyH2dALMuZ4q9NkJzAl L5BEyfD3LiiyH0QZZuoUN vWFKbnHXLrA3b szdtp1kbkjgdLgKlTDOxO Gh3DHv5NVFefCshTgEbII O3UrF5OUV0nRZtlP4dzRm cmgvmgF2hEbb+ UTQ8QZS8YL07JO28O1RdD jwvdGFibGU+PHRhYmxlIH dpZHRoPScxMDAlJyBzdHl jBB8kMj0dUZHo LWNv (more content not included)... Normal [facility] Family Medicine Office/Clini c Noteon 09-02-2022 Family Medicine Office/Clinic Note Chief Complaint EST UTI HPI Staff Pt 77 yo female presents with UTI symptoms Onset- 3-4 days ago Frequency- no Urgency- yes Small volume void- yes Dysuria- yes Pressure- yes Back pain- no Nocturia- no hematuria - yes with wiping Fever/chills- no Nausea/vomiting- no tx - none UTI or other reason for antbx's last 30 days- no Pt had stroke in Jun- had a UTI no hx of kidney issues or stones History of Present Illness I have reviewed and verified the staff HPI to be accurate for this encounter. Review of Systems PHQ Score Initial Depression Screen Score: 0 Physical Exam Vitals & Measurements T: 36.4 ?C(Oral) HR: 97(Peripheral) BP: 118/76 SpO2: 96% HT: 64 in HT: 162 cm WT: 127 kg WT: 279.4 lb BMI: 48.39 General: _ Pleasant, obese female Lungs: Normal respiratory effort and clear to auscultation Cardio: regular rate and rhythm, no murmur Abdomen: Soft, non-distended, non-tender no CVA tenderness to percussion Mental Status: Alert and oriented x3. Normal mood and affect Assessment/Plan 1. Urinary tract infection (N39.0: Urinary tract infection, site not specified) UA with large blood, moderate leukocytes, positive nitrates, 3+ protein. Will treat with Augmentin to cover for potential kidney involvement. Finish course of ATB. Fluids/rest. Will cx urine and notify of results in 3-5 days. Fu with PCP if not improving over next 3-4 days with ATB or worsening. Patient verbalized understanding of tx plan. Ordered: amoxicillin-clavulana te, = 1 tab(s), Oral, q12hr, X 7 day(s), # 14 tab(s), Refills(s) 0, Pharmacy: [facility], 162, cm, 09/02/22 12:13:00 EDT, Height/Length Dosing, 127, kg, 09/02/22 12:13:00 EDT, Weight Dosing Urine Culture 2. Morbid obesity with BMI of 45.0-49.9, adult (E66.01: Morbid (severe) obesity due to excess calories) The standard range for ages 18 and older is >=18.5 and < 25 kg/m2. Your BMI today was above this range, this falls in the overweight to obese category and there are medical benefits to weight loss. We can offer counselling, referral, and/or medical support in addressing this problem. Your BMI and weight management will be followed at subsequent visits. 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 History of obesity Lumbosacral radiculopathy Seizure disorder, focal motor Historical DVT - Deep vein thrombosis Procedure/Surgical History Implantation of neurostimulator in spine (03/09/2021), Injection of sacroiliac joint (09/15/2020), Injection of nerve root of lumbar spine using fluoroscopic guidance (04/28/2020), Decompression of lumbar spine (12/02/2019), MRI (03/19/2019), Arthroscopy of knee (03/13/2019), Injection of sacroiliac joint using fluoroscopic guidance (10/09/2018), Epidural injection of lumbar spine using fluoroscopic guidance (08/07/2018), Epidural injection of lumbar spine using fluoroscopic guidance (04/17/2018), Injection of sacroiliac joint using fluoroscopic guidance (02/20/2018), Transforaminal Epidural Steriod Injection bilateral L3 (11/21/2017), Supartz injection right knee #5 (09/06/2017), Supartz injection right knee #4 (08/02/2017), Supartz injection right knee #3 (07/19/2017), Radiofrequency ablation of medial branch of lumbar nerve using fluoroscopic guidance (07/11/2017), Injection of knee joint (07/05/2017), Supartz Injection to Right knee (06/21/2017), Injection into facet joint of lumbar spine using fluoroscopic guidance (09/27/2016), bilateral lumbar facet injections l3-s1 (08/09/2016), Bilateral Radio frequency sacroiliac ablation S1-3, Bladder augmentation, Cataract extraction and insertion of intraocular lens, Cholecystectomy, DVT (deep venous thrombosis)....., Injection of sacroiliac joint using fluoroscopic guidance, Liposuction, Supartz right knee, Tubal ligation. Medications aspirin 81 mg Oral EC Tab, 81 mg= 1 tab(s), Oral, Daily atenolol 50 mg Tab, 50 mg= 1 tab(s), Oral, Bedtime atenolol 50 mg Tab, 25 mg= 0.5 tab(s), Oral, Daily atorvastatin 80 mg Tab, 80 mg= 1 tab(s), Oral, Daily Augmentin 875 mg oral tablet, 1 tab(s), Oral, q12hr diclofenac topical 1% gel, 1 taylor, Topical, QID, PRN gabapentin 800 mg Tab, 800 mg= 1 tab(s), Oral, BID Humalog Mix 75/25 KwikPen, See Instructions Keppra 750 mg oral tablet, 750 mg= 1 tab(s), Oral, BID lisinopril 20 mg Tab, 20 mg= 1 tab(s), Oral, Daily omeprazole, 40 mg, Ora (more content not included)... Normal [facility] Comment on above: Result Comment: Elec tronically Signed By: PAYTON Argueta APRN, Verónica Guerrier\.br\Date and Time Signed: 09/02/22 12:43 EDT Patient Educationon 09-03-19 23 Patient Education Nutrition BMI for Adults Body mass index (BMI) is a number that is calculated from a person's weight and height. BMI may help to estimate how much of a person's weight is composed of fat. BMI can help identify those who may be at higher risk for certain medical problems. How is BMI used with adults? BMI is used as a screening tool to identify possible weight problems. It is used to check whether a person is obese, overweight, healthy weight, or underweight. How is BMI calculated? BMI measures your weight and compares it to your height. This can be done either in Portuguese ([place] or metric measurements. Note that charts are available to help you find your BMI quickly and easily without having to do these calculations yourself. To calculate your BMI in Portuguese ([place] measurements, your health care provider will: 1. Measure your weight in pounds (lb). 2. Multiply the number of pounds by 703. ? For example, for a person who weighs 180 lb, multiply that number by 703, which equals 126,540. 3. Measure your height in inches (in). Then multiply that number by itself to get a measurement called inches squared. ? For example, for a person who is 70 in tall, the inches squared measurement is 70 in x 70 in, which equals 4900 inches squared. 4. Divide the total from Step 2 (number of lb x 703) by the total from Step 3 (inches squared): 126,540 ? 4900 = 25.8. This is your BMI. To calculate your BMI in metric measurements, your health care provider will: 1. Measure your weight in kilograms (kg). 2. Measure your height in meters (m). Then multiply that number by itself to get a measurement called meters squared. ? For example, for a person who is 1.75 m tall, the meters squared measurement is 1.75 m x 1.75 m, which is equal to 3.1 meters squared. 3. Divide the number of kilograms (your weight) by the meters squared number. In this example: 70 ? 3.1 = 22.6. This is your BMI. How is BMI interpreted? To interpret your results, your health care provider will use BMI charts to identify whether you are underweight, normal weight, overweight, or obese. The following guidelines will be used: ? Underweight: BMI less than 18.5. ? Normal weight: BMI between 18.5 and 24.9. ? Overweight: BMI between 25 and 29.9. ? Obese: BMI of 30 and above. Please note: ? Weight includes both fat and muscle, so someone with a muscular build, such as an athlete, may have a BMI that is higher than 24.9. In cases like these, BMI is not an accurate measure of body fat. ? To determine if excess body fat is the cause of a BMI of 25 or higher, further assessments may need to be done by a health care provider. ? BMI is usually interpreted in the same way for men and women. Why is BMI a useful tool? BMI is useful in two ways: ? Identifying a weight problem that may be related to a medical condition, or that may increase the risk for medical problems. ? Promoting lifestyle and diet changes in order to reach a healthy weight. Summary ? Body mass index (BMI) is a number that is calculated from a person's weight and height. ? BMI may help to estimate how much of a person's weight is composed of fat. BMI can help identify those who may be at higher risk for certain medical problems. ? BMI can be measured using Portuguese measurements or metric measurements. ? To interpret your results, your health care provider will use BMI charts to identify whether you are underweight, normal weight, overweight, or obese. This information is not intended to replace advice given to you by your health care provider. Make sure you discuss any questions you have with your health care provider. Document Released: 02/13/2005 Document Revised: 05/17/2018 Document Reviewed: 04/17/2018 [employer] Patient Education ? 2019 [employer]. Obstetrics and Gynecology Urinary Tract Infection, Adult A urinary tract infection (UTI) is an infection of any part of the urinary tract. The urinary tract includes the kidneys, ureters, bladder, and urethra. These organs make, store, and get rid of urine in the body. Your health care provider may use other names to describe the infection. An upper UTI affects the ureters and kidneys (pyelonephritis). A lower UTI affects the bladder (cystitis) and urethra (urethritis). What are the causes? Most urinary tract infections are caused by bacteria in your genital area, around the entrance to your urinary tract (urethra). These bacteria grow and cause inflammation of your urinary tract. What increases the risk? You are more likely to develop this condition if: ? You have a urinary catheter that stays in place (indwelling). ? You are not able to control when you urinate or have a bowel movement (you have incontinence). ? You are female and you: ? Use a spermicide or diaphragm for control. ? Have low estrogen levels. ? Are . ? You have certain genes that increase your ri (more content not included)... Normal [facility] Consent for Treatmenton 08-16 Consent for Treatment [id number]#1 .00CD:127 [facility] Legal Correspondence Officeo n 08-31-2022 Legal Correspondence Office [id number]# 1.00CD:127 [facility] Office/Clinic Note-Physician on 08-31-2022 Office/Clinic Note-Physician [id number]#1 .00CD:127 [facility] Patient Correspondenceon Patient Correspondence [id number]#1 .00CD:127 [facility] Patient Correspondence [id number]#1 .00CD:127 [facility] Patient Correspondence [id number]#1 .00CD:127 [facility] Patient History Officeon Patient History Office [id number]#1 .00CD:127 [facility] Physician Orderon 08-31-2022 Physician Order [id number]#1 .00CD:127 [facility] Glucose Glucometer (BldC) [M ass/Vol]Ordered By: Delio Gonzales on 07-13-2022 Glucose [Mass/Vol] 97 mg/dL [facility] Comment on above: Random Glucose Refer ence Range is dependent on time and content of last meal. Glucose of more than 200 mg/dL in a nonstressed, ambulatory subject supports the diagnosis of Diabetes Mellitus. Glucose Poct Glucometerson 0 07-13-2022 Commemt1 Glu2: Cleaned Meter [facility] Comment on above: Result Comment: PERF ORMED BY: [facility] [address] [place] [address] PATHOLOGIST GR[employer] P[employer]ER SHANNAN GARZA M.D. Performed By: #### B MP #### [facility] [address] [place] [address] Glucose [Mass/Vol] 97 mg/dL Normal [facility] Comment on above: Result Comment: [place] om Glucose Reference Range is dependent on time and content of last meal. Glucose of more than 200 mg/dL in a nonstressed, ambulatory subject supports the diagnosis of Diabetes Mellitus. Performed By: #### B MP #### [facility] [address] [place] [address] No Panel InformationOrdered By: Delio Gonzales on 07-13-2022 Bedside Glucose Comment Glu2: cleaned meter [facility] Glucose Poct Glucometerson 0 07-12-2022 Commemt1 Glu2: Cleaned Meter [facility] Comment on above: Result Comment: PERF ORMED BY: [place] [address] PATHOLOGIST [employer] P[employer]ER SHANNAN GARZA M.D. Performed By: #### G LULS #### Point of Care testing , Glucose [Mass/Vol] 113 mg/dL Normal [facility] Comment on above: Result Comment: [place] om Glucose Reference Range is dependent on time and content of last meal. Glucose of more than 200 mg/dL in a nonstressed, ambulatory subject supports the diagnosis of Diabetes Mellitus. Performed By: #### G LULS #### Point of Care testing , Commemt1 Glu2: Cleaned Meter [facility] Comment on above: Result Comment: PERF ORMED BY: [place] [address] PATHOLOGIST [employer] P[employer] SHANNAN GARZA M.D. Performed By: #### G LULS #### Point of Care testing , Glucose [Mass/Vol] 97 mg/dL Normal [facility] Comment on above: Result Comment: [place] [facility] Glucose Reference Range is dependent on time and content of last meal. Glucose of more than 200 mg/dL in a nonstressed, ambulatory subject supports the diagnosis of Diabetes Mellitus. Performed By: #### G LULS #### Point of Care testing , Basic Metabolic Panelon -2 Anion gap [Moles/Vol] 14.1 mmol/L Normal 6.0-15.0 [facility] Comment on above: Performed By: #### G LULS #### Point of Care testing , Calcium [Mass/Vol] 9.0 mg/dL Normal 8.2-10.2 [facility] Comment on above: Performed By: #### G LULS #### Point of Care testing , Chloride [Moles/Vol] 109 mmol/L Normal 95-114 [facility] Comment on above: Performed By: #### G LULS #### Point of Care testing , CO2 [Moles/Vol] 23.7 mmol/L Normal 22.0-30.0 [facility] [facility] Comment on above: Performed By: #### G LULS #### Point of Care testing , Creatinine [Mass/Vol] 1.49 mg/dL High 0.44-1.03 [facility] Comment on above: Performed By: #### G LULS #### Point of Care testing , Creatinine Clr Calc Pharmacy 41.81 [facility] Comment on above: Result Comment: PERF ORMED BY: [facility] [address] [place] [address] PATHOLOGIST GRAPE PICKER SHANNAN GARZA M.D. Performed By: #### G LULS #### Point of Care testing , Estimated GFR ( Ana 41 [facility] Comment on above: Result Comment: GFR estimated reference range: According to KDOQI guidelines, <60 ml/min/1.73m2 is sufficient to diagnose a patient with chronic kidney disease. Performed By: #### G LULS #### Point of Care testing , Estimated GFR (Non- Am 34 [facility] Comment on above: Performed By: #### G LULS #### Point of Care testing , Glucose [Mass/Vol] 84 mg/dL Normal 70-100 [facility] Comment on above: Result Comment: [place] Glucose Reference Range is dependent on time and content of last meal. Glucose of more than 200 mg/dL in a nonstressed, ambulatory subject supports the diagnosis of Diabetes Mellitus. ADA recommended reference range Performed By: #### G LULS #### Point of Care testing , Potassium [Moles/Vol] 4.8 mmol/L Normal 3.5-5.1 [facility] Comment on above: Performed By: #### G LULS #### Point of Care testing , Sodium [Moles/Vol] 142 mmol/L Normal 136-146 [facility] Comment on above: Performed By: #### G LULS #### Point of Care testing , Urea nitrogen [Mass/Vol] 26 mg/dL High 9-23 [facility] Comment on above: Performed By: #### G LULS #### Point of Care testing , Basophils Auto (Bld) [#/Vol] Ordered By: Mariposa Martinez on 07-11-2022 Basophils (Bld) [#/Vol] 0.0 10*3/uL 0.0-0.2 [facility] Basophils/100 WBC Auto (Bld) Ordered By: Mariposa Martinez on 07-11-2022 Basophils/100 WBC (Bld) 0.6 % . [facility] Complete Blood Count Auto Di ffon 07-11-2022 Basophils (Bld) [#/Vol] 0.0 10*3/uL Normal 0.0-0.2 [facility] Comment on above: Result Comment: PERF ORMED BY: [facility] [address] [place] [address] PATHOLOGIST GRAPE PICKER SHANNAN GARZA M.D. Performed By: #### G LULS #### Point of Care testing , Basophils/100 WBC (Bld) 0.6 % Normal . [facility] Comment on above: Performed By: #### G LULS #### Point of Care testing , Eosinophils (Bld) [#/Vol] 0.2 10*3/uL Normal 0.0-0.45 [facility] Comment on above: Performed By: #### G LULS #### Point of Care testing , Eosinophils/100 WBC (Bld) 3.7 % Normal . [facility] Comment on above: Performed By: #### G FERNLS #### Point of Care testing , Erythrocyte distribution width (RBC) [Ratio] 13.6 % Normal 11.9-15.3 [facility] Comment on above: Performed By: #### G FERNLS #### Point of Care testing , Hematocrit (Bld) [Volume fraction] 38.5 % Normal 34.0-46.4 [facility] Comment on above: Performed By: #### G FERNLS #### Point of Care testing , Hemoglobin (Bld) [Mass/Vol] 12.5 g/dL Normal 11.8-15.4 [facility] Comment on above: Performed By: #### G FERNLS #### Point of Care testing , Lymphocytes (Bld) [#/Vol] 1.5 10*3/uL Normal 1.00-4.8 [facility] Comment on above: Performed By: #### G FERNLS #### Point of Care testing , Lymphocytes/100 WBC (Bld) 31.6 % Normal . [facility] Comment on above: Performed By: #### G FERNLS #### Point of Care testing , MCH (RBC) [Entitic mass] 30.6 pg Normal 24.7-34.3 [facility] Comment on above: Performed By: #### G FERNLS #### Point of Care testing , MCV (RBC) [Entitic vol] 94.3 fL Normal 80-100 [facility] Comment on above: Performed By: #### G FERNLS #### Point of Care testing , Mean Corpuscular HGB Conc 32.5 g/dL Normal 32.0-35.0 [facility] Comment on above: Performed By: #### G FERNLS #### Point of Care testing , Monocytes (Bld) [#/Vol] 0.5 10*3/uL Normal 0.0-0.8 [facility] Comment on above: Performed By: #### G FERNLS #### Point of Care testing , Monocytes/100 WBC (Bld) 10.0 % Normal . [facility] Comment on above: Performed By: #### G LULS #### Point of Care testing , Neutrophils (Bld) [#/Vol] 2.6 10*3/uL Normal 1.8-7.7 [facility] Comment on above: Performed By: #### G FERNLS #### Point of Care testing , Neutrophils/100 WBC (Bld) 54.1 % Normal . [facility] Comment on above: Performed By: #### G FERNLS #### Point of Care testing , NRBC% 0.2 /100{WBC} Normal 0-0.5 [facility] Comment on above: Performed By: #### G FERNLS #### Point of Care testing , Platelet mean volume (Bld) [Entitic vol] 9.2 fL Normal 6.3-10.7 [facility] Comment on above: Performed By: #### G FERNLS #### Point of Care testing , Platelets (Bld) [#/Vol] 191 10*3/uL Normal 150-450 [facility] Comment on above: Performed By: #### G FERNLS #### Point of Care testing , RBC (Bld) [#/Vol] 4.08 10*6/uL Normal 3.60-5.00 [facility] Comment on above: Performed By: #### G FERNLS #### Point of Care testing , WBC (Bld) [#/Vol] 4.8 10*3/uL Normal 3.8-11.6 [facility] Comment on above: Performed By: #### Lona SHIRLEYLS #### Point of Care testing , Creatinine and Glomerular fi ltration rate.predicted panel (S/P/Bld)Ordered By: Mariposa Martinez on 07-11-2022 Creatinine [Mass/Vol] 1.49 mg/dL 0.44-1.03 [facility] Eosinophils Auto (Bld) [#/Vo l]Ordered By: Mariposa Martinez on 07-11-2022 Eosinophils (Bld) [#/Vol] 0.2 10*3/uL 0.0-0.45 [facility] Eosinophils/100 WBC Auto (Bl d)Ordered By: Mariposa Martinez on 07-11-2022 Eosinophils/100 WBC (Bld) 3.7 % . [facility] Erythrocyte distribution wid th Auto (RBC) [Ratio]Ordered By: Mariposa Martinez on 07-11-2022 Erythrocyte distribution width (RBC) [Ratio] 13.6 % 11.9-15.3 [facility] Estimated glomerular filtrat ion rate (GFR) non- AmericanOrdered By: Mariposa Martinez on 07-11-2022 GFR/1.73 sq M.predicted among non-blacks MDRD (S/P/Bld) [Vol rate/Area] 34 mL/Min [facility] Glucose Poct Glucometerson 0 07-11-2022 Commemt1 [facility] Comment on above: Result Comment: Glu2 : WILL NOTIFY DR/RN Performed By: #### G LULS #### Point of Care testing , Commemt2 Cleaned Meter Normal [facility] Comment on above: Result Comment: PERF ORMED BY: [facility] [address] [place] [address] PATHOLOGIST GRAPE PICKER SHANNAN GARZA M.D. Performed By: #### G LULS #### Point of Care testing , Glucose [Mass/Vol] 87 mg/dL Normal [facility] Comment on above: Result Comment: [place] om Glucose Reference Range is dependent on time and content of last meal. Glucose of more than 200 mg/dL in a nonstressed, ambulatory subject supports the diagnosis of Diabetes Mellitus. Performed By: #### G LULS #### Point of Care testing , Glucose [Mass/Vol] 83 mg/dL Normal [facility] Comment on above: Result Comment: [place] om Glucose Reference Range is dependent on time and content of last meal. Glucose of more than 200 mg/dL in a nonstressed, ambulatory subject supports the diagnosis of Diabetes Mellitus. PERFORMED BY: [facility] [address] [place] [address] PATHOLOGIST GRAPE PICKER SHANNAN GARZA M.D. Performed By: #### G LULS #### Point of Care testing , Hematocrit Auto (Bld) [Volum e fraction]Ordered By: Mariposa Martinez on 07-11-2022 Hematocrit (Bld) [Volume fraction] 38.5 % 34.0-46.4 [facility] Hemoglobin [Mass/volume] in BloodOrdered By: Mariposa Martinez on 07-11-2022 Hemoglobin (Bld) [Mass/Vol] 12.5 g/dL 11.8-15.4 [facility] Leukocytes [#/volume] correc [place] for nucleated erythrocytes in Blood by Automated counOrdered By: Mariposa Martinez on 07-11-2022 WBC corrected for nucl RBC Auto (Bld) [#/Vol] 4.8 10*3/uL 3.8-11.6 [facility] Lymphocytes Auto (Bld) [#/Vo l]Ordered By: Mariposa Martinez on 07-11-2022 Lymphocytes (Bld) [#/Vol] 1.5 10*3/uL 1.00-4.8 [facility] Lymphocytes/100 WBC Auto (Bl d)Ordered By: Mariposa Martinez on 07-11-2022 Lymphocytes/100 WBC (Bld) 31.6 % . [facility] MCH Auto (RBC) [Entitic mass ]Ordered By: Mariposa Martinez on 07-11-2022 MCH (RBC) [Entitic mass] 30.6 pg 24.7-34.3 [facility] MCHC Auto (RBC) [Mass/Vol]Or dered By: Mariposa Martinez on 07-11-2022 MCHC (RBC) [Mass/Vol] 32.5 g/dL 32.0-35.0 [facility] MCV Auto (RBC) [Entitic vol] Ordered By: Mariposa Martinez on 07-11-2022 MCV (RBC) [Entitic vol] 94.3 fL 80-100 [facility] Monocytes Auto (Bld) [#/Vol] Ordered By: Mariposa Martinez on 07-11-2022 Monocytes (Bld) [#/Vol] 0.5 10*3/uL 0.0-0.8 [facility] Monocytes/100 WBC Auto (Bld) Ordered By: Mariposa Martinez on 07-11-2022 Monocytes/100 WBC (Bld) 10.0 % . [facility] Neutrophils Auto (Bld) [#/Vo l]Ordered By: Mariposa Martinez on 07-11-2022 Neutrophils (Bld) [#/Vol] 2.6 10*3/uL 1.8-7.7 [facility] Neutrophils/100 WBC Auto (Bl d)Ordered By: Mariposa Martinez on 07-11-2022 Neutrophils/100 WBC (Bld) 54.1 % . [facility] No Panel InformationOrdered By: Delio Gonzales on 07-11-2022 Bedside Glucose #2 Comment Cleaned meter [facility] No Panel InformationOrdered By: Mariposa Martinez on 07-11-2022 Estimated GFR () 41 mL/Min [facility] Comment on above: GFR estimated refere nce range: According to KDOQI guidelines, <60 ml/min/1.73m2 is sufficient to diagnose a patient with chronic kidney disease. Pharmacy Creatinine Clearance (Chem 41.81 [facility] Nucleated erythrocytes [Pres ence] in Blood by Automated countOrdered By: Mariposa Martinez on 07-11-2022 Nucleated RBC Auto Ql (Bld) 0.2 /100{WBC} 0-0.5 [facility] Platelet mean volume Auto (B ld) [Entitic vol]Ordered By: Mariposa Martinez on 07-11-2022 Platelet mean volume (Bld) [Entitic vol] 9.2 fL 6.3-10.7 [facility] Platelets Auto (Bld) [#/Vol] Ordered By: Mariposa Martinez on 07-11-2022 Platelets (Bld) [#/Vol] 191 10*3/uL 150-450 [facility] RBC Auto (Bld) [#/Vol]Ordere d By: Mariposa Martinez on 07-11-2022 RBC (Bld) [#/Vol] 4.08 10*6/uL 3.60-5.00 [facility] Serum or plasma anion gap de terminationOrdered By: Mariposa Martinez on 07-11-2022 Anion gap [Moles/Vol] 14.1 mmol/L 6.0-15.0 [facility] Serum or plasma calcium destiny urement (mass/volume)Ordered By: Mariposa Martinez on 07-11-2022 Calcium [Mass/Vol] 9.0 mg/dL 8.2-10.2 [facility] Serum or plasma chloride consuelo surement (moles/volume)Ordered By: Mariposa Martinez on 07-11-2022 Chloride [Moles/Vol] 109 mmol/L 95-114 [facility] Serum or plasma glucose destiny urement (mass/volume)Ordered By: Mariposa Martinez on 07-11-2022 Glucose [Mass/Vol] 84 mg/dL 70-100 [facility] Comment on above: ADA recommended refe rence rangeRandom Glucose Reference Range is dependent on time and content of last meal. Glucose of more than 200 mg/dL in a nonstressed, ambulatory subject supports the diagnosis of Diabetes Mellitus. Serum or plasma potassium me asurement (moles/volume)Ordered By: Mariposa Martinez on 07-11-2022 Potassium [Moles/Vol] 4.8 mmol/L 3.5-5.1 [facility] Serum or plasma sodium measu rement (moles/volume)Ordered By: Mariposa Martinez on 07-11-2022 Sodium [Moles/Vol] 142 mmol/L 136-146 [facility] Serum or plasma total carbon dioxide measurement (moles/volume)Ordered By: Mariposa Martinez on 07-11-2022 CO2 [Moles/Vol] 23.7 mmol/L 22.0-30.0 [facility] Serum or plasma urea nitroge n measurement (mass/volume)Ordered By: Mariposa Martinez on 07-11-2022 Urea nitrogen [Mass/Vol] 26 mg/dL - [facility] WBC Auto (Bld) [#/Vol]Ordere d By: Mariposa Martinez on 07-11-2022 WBC (Bld) [#/Vol] 4.8 10*3/uL 3.8-11.6 [facility] Glucose Poct Glucometerson 0 07-10-2022 Glucose [Mass/Vol] 86 mg/dL Normal [facility] Comment on above: Result Comment: [place] om Glucose Reference Range is dependent on time and content of last meal. Glucose of more than 200 mg/dL in a nonstressed, ambulatory subject supports the diagnosis of Diabetes Mellitus. PERFORMED BY: [address] [place] [id number] PATHOLOGIST GRAPE PICKER SHANNAN GARZA M.D. Performed By: #### G LULS #### Point of Care testing , Commemt1 Glu2: Cleaned Meter [facility] Comment on above: Result Comment: PERF ORMED BY: [address] [place] [address] PATHOLOGIST GRAPE PICKER SHANNAN GARZA M.D. Performed By: #### G LULS #### Point of Care testing , Glucose [Mass/Vol] 98 mg/dL Normal [facility] Comment on above: Result Comment: [place] om Glucose Reference Range is dependent on time and content of last meal. Glucose of more than 200 mg/dL in a nonstressed, ambulatory subject supports the diagnosis of Diabetes Mellitus. Performed By: #### G LULS #### Point of Care testing , Glucose Poct Glucometerson 0 07-09-2022 Glucose [Mass/Vol] 104 mg/dL Normal [facility] Comment on above: Result Comment: [place] om Glucose Reference Range is dependent on time and content of last meal. Glucose of more than 200 mg/dL in a nonstressed, ambulatory subject supports the diagnosis of Diabetes Mellitus. PERFORMED BY: [address] [place] [address] PATHOLOGIST GRAPE PICKER SHANNAN GARZA M.D. Performed By: #### G LULS #### Point of Care testing , Commemt1 Glu2: Cleaned Meter [facility] Comment on above: Result Comment: PERF ORMED BY: [address] [place] [id number] PATHOLOGIST GRAPE PICKER SHANNAN GARZA M.D. Performed By: #### G LULS #### Point of Care testing , Glucose [Mass/Vol] 82 mg/dL Normal [facility] Comment on above: Result Comment: [place] om Glucose Reference Range is dependent on time and content of last meal. Glucose of more than 200 mg/dL in a nonstressed, ambulatory subject supports the diagnosis of Diabetes Mellitus. Performed By: #### G LULS #### Point of Care testing , Glucose Poct Glucometerson 0 07-08-2022 Glucose [Mass/Vol] 100 mg/dL [facility] Comment on above: Result Comment: [place] om Glucose Reference Range is dependent on time and content of last meal. Glucose of more than 200 mg/dL in a nonstressed, ambulatory subject supports the diagnosis of Diabetes Mellitus. PERFORMED BY: [address] [place] [address] PATHOLOGIST GRAPE PICKER SHANNAN GARZA M.D. Performed By: #### G LULS #### Point of Care testing , Commemt1 Glu2: Cleaned Meter [facility] Comment on above: Result Comment: PERF ORMED BY: [address] [place] [address] PATHOLOGIST GRAPE PICKER SHANNAN GARZA M.D. Performed By: #### G LULS #### Point of Care testing , Glucose [Mass/Vol] 87 mg/dL [facility] Comment on above: Result Comment: [place] om Glucose Reference Range is dependent on time and content of last meal. Glucose of more than 200 mg/dL in a nonstressed, ambulatory subject supports the diagnosis of Diabetes Mellitus. Performed By: #### G LULS #### Point of Care testing , Glucose Poct Glucometerson 0 07-07-2022 Commemt1 Glu2: Cleaned Meter [facility] Comment on above: Performed By: #### G LULS #### Point of Care testing , Commemt2 WILL NOTIFY DR/RN [facility] Comment on above: Result Comment: PERF ORMED BY: [address] [place] [address] PATHOLOGIST GRAPE PICKER SHANNAN GARZA M.D. Performed By: #### G LULS #### Point of Care testing , Glucose [Mass/Vol] 84 mg/dL Normal [facility] Comment on above: Result Comment: [place] om Glucose Reference Range is dependent on time and content of last meal. Glucose of more than 200 mg/dL in a nonstressed, ambulatory subject supports the diagnosis of Diabetes Mellitus. Performed By: #### G LULS #### Point of Care testing , Commemt1 Glu2: Cleaned Meter [facility] Comment on above: Performed By: #### G LULS #### Point of Care testing , Commemt2 WILL NOTIFY DR/RN [facility] Comment on above: Result Comment: PERF ORMED BY: [address] [address] PATHOLOGIST GRAPE PICKER SHANNAN GARZA M.D. Performed By: #### G LULS #### Point of Care testing , Glucose [Mass/Vol] 69 mg/dL [facility] Comment on above: Result Comment: [facility] Glucose Reference Range is dependent on time and content of last meal. Glucose of more than 200 mg/dL in a nonstressed, ambulatory subject supports the diagnosis of Diabetes Mellitus. Performed By: #### G LULS #### Point of Care testing , Glucose [Mass/Vol] 80 mg/dL [facility] Comment on above: Result Comment: [place] om Glucose Reference Range is dependent on time and content of last meal. Glucose of more than 200 mg/dL in a nonstressed, ambulatory subject supports the diagnosis of Diabetes Mellitus. PERFORMED BY: [facility] [address] [place] [address] PATHOLOGIST GRAPE PICKER SHANNAN GARZA M.D. Performed By: #### G LULS #### Point of Care testing , Glucose Poct Glucometerson 0 07-06-2022 Glucose [Mass/Vol] 106 mg/dL [facility] Comment on above: Result Comment: [place] Glucose Reference Range is dependent on time and content of last meal. Glucose of more than 200 mg/dL in a nonstressed, ambulatory subject supports the diagnosis of Diabetes Mellitus. Performed By: #### G LULS #### Point of Care testing , Commemt1 Glu2: Cleaned Meter [facility] Comment on above: Result Comment: PERF ORMED BY: [facility] [address] [place] [id number] PATHOLOGIST GRAPE PICKER SHANNAN GARZA M.D. Performed By: #### G LULS #### Point of Care testing , Glucose [Mass/Vol] 90 mg/dL Normal [facility] Comment on above: Result Comment: [place] om Glucose Reference Range is dependent on time and content of last meal. Glucose of more than 200 mg/dL in a nonstressed, ambulatory subject supports the diagnosis of Diabetes Mellitus. Performed By: #### G LULS #### Point of Care testing , Glucose Poct Glucometerson 0 07-05-2022 Commemt1 Glu2: Cleaned Meter [facility] Comment on above: Performed By: #### G LULS #### Point of Care testing , Commemt2 WILL NOTIFY DR/RN [facility] Comment on above: Result Comment: PERF ORMED BY: [facility] [address] [place] [id number] PATHOLOGIST GRAPE PICKER SHANNAN GARZA M.D. Performed By: #### G LULS #### Point of Care testing , Glucose [Mass/Vol] 136 mg/dL Normal [facility] Comment on above: Result Comment: [place] om Glucose Reference Range is dependent on time and content of last meal. Glucose of more than 200 mg/dL in a nonstressed, ambulatory subject supports the diagnosis of Diabetes Mellitus. Performed By: #### G LULS #### Point of Care testing , Glucose [Mass/Vol] 103 mg/dL Normal [facility] Comment on above: Result Comment: [place] om Glucose Reference Range is dependent on time and content of last meal. Glucose of more than 200 mg/dL in a nonstressed, ambulatory subject supports the diagnosis of Diabetes Mellitus. PERFORMED BY: [address] [place] [address] PATHOLOGIST GRAPE PICKER SHANNAN GARZA M.D. Performed By: #### G LULS #### Point of Care testing , Basic Metabolic Panelon 06-18 Anion gap [Moles/Vol] 11.3 mmol/L Normal 6.0-15.0 [facility] Comment on above: Order Comment: pt is in therapy Performed By: #### G LULS #### Point of Care testing , Calcium [Mass/Vol] 9.0 mg/dL Normal 8.2-10.2 [facility] Comment on above: Order Comment: pt is in therapy Performed By: #### G LULS #### Point of Care testing , Chloride [Moles/Vol] 108 mmol/L Normal 95-114 [facility] Comment on above: Order Comment: pt is in therapy Performed By: #### G LULS #### Point of Care testing , CO2 [Moles/Vol] 23.2 mmol/L Normal 22.0-30.0 [facility] Comment on above: Order Comment: pt is in therapy Performed By: #### G LULS #### Point of Care testing , Creatinine [Mass/Vol] 1.60 mg/dL High 0.44-1.03 [facility] Comment on above: Order Comment: pt is in therapy Performed By: #### G LULS #### Point of Care testing , Creatinine Clr Calc Pharmacy 38.85 [facility] Comment on above: Order Comment: pt is in therapy Result Comment: PERF ORMED BY: [facility] [address] [place] [address] PATHOLOGIST GRAPE PICKER SHANNAN GARZA M.D. Performed By: #### G LULS #### Point of Care testing , Estimated GFR ( Ana 38 [facility] Comment on above: Order Comment: pt is in therapy Result Comment: GFR estimated reference range: According to KDOQI guidelines, <60 ml/min/1.73m2 is sufficient to diagnose a patient with chronic kidney disease. Performed By: #### G LULS #### Point of Care testing , Estimated GFR (Non- Am 31 [facility] Comment on above: Order Comment: pt is in therapy Performed By: #### G LULS #### Point of Care testing , Glucose [Mass/Vol] 167 mg/dL High 70-100 [facility] Comment on above: Order Comment: pt is in therapy Result Comment: [place] om Glucose Reference Range is dependent on time and content of last meal. Glucose of more than 200 mg/dL in a nonstressed, ambulatory subject supports the diagnosis of Diabetes Mellitus. ADA recommended reference range Performed By: #### G LULS #### Point of Care testing , Potassium [Moles/Vol] 4.5 mmol/L Normal 3.5-5.1 [facility] Comment on above: Order Comment: pt is in therapy Performed By: #### G LULS #### Point of Care testing , Sodium [Moles/Vol] 138 mmol/L Normal 136-146 [facility] Comment on above: Order Comment: pt is in therapy Performed By: #### G LULS #### Point of Care testing , Urea nitrogen [Mass/Vol] 46 mg/dL High 9-23 [facility] Comment on above: Order Comment: pt is in therapy Performed By: #### G LULS #### Point of Care testing , Glucose Poct Glucometerson 0 07-04-2022 Commemt1 Glu2: Cleaned Meter [facility] Comment on above: Result Comment: PERF ORMED BY: [facility] [address] [place] [address] PATHOLOGIST GRAPE PICKER SHANNAN GARZA M.D. Performed By: #### G LULS #### Point of Care testing , Glucose [Mass/Vol] 85 mg/dL Normal [facility] Comment on above: Result Comment: [place] om Glucose Reference Range is dependent on time and content of last meal. Glucose of more than 200 mg/dL in a nonstressed, ambulatory subject supports the diagnosis of Diabetes Mellitus. Performed By: #### G LULS #### Point of Care testing , Glucose [Mass/Vol] 131 mg/dL Normal [facility] Comment on above: Result Comment: [place] om Glucose Reference Range is dependent on time and content of last meal. Glucose of more than 200 mg/dL in a nonstressed, ambulatory subject supports the diagnosis of Diabetes Mellitus. PERFORMED BY: [facility] [address] [place] [address] PATHOLOGIST GRAPE PICKER SHANNAN GARZA M.D. Performed By: #### G SERGO #### Point of Care testing , Basic Metabolic Panelon 06-18 Anion gap [Moles/Vol] 11.4 mmol/L Normal 6.0-15.0 [facility] Comment on above: Performed By: #### B MP #### [address] Calcium [Mass/Vol] 8.4 mg/dL Normal 8.2-10.2 [facility] Comment on above: Performed By: #### B MP #### [address] Chloride [Moles/Vol] 110 mmol/L Normal 95-114 [facility] Comment on above: Performed By: #### B MP #### [address] CO2 [Moles/Vol] 21.6 mmol/L Low 22.0-30.0 [facility] Comment on above: Performed By: #### B MP #### [address] Creatinine [Mass/Vol] 1.75 mg/dL High 0.44-1.03 [facility] Comment on above: Performed By: #### B MP #### [place] [address] [place] Creatinine Clr Calc Pharmacy 35.52 [facility] Comment on above: Result Comment: PERF ORMED BY: [place] [address] PATHOLOGIST GRAPE PICKER SHANNAN GARZA M.D. Performed By: #### B MP #### [place] [address] [place] Estimated GFR ( Ana 34 [facility] Comment on above: Result Comment: GFR estimated reference range: According to KDOQI guidelines, <60 ml/min/1.73m2 is sufficient to diagnose a patient with chronic kidney disease. Performed By: #### B MP #### [facility] [address] Estimated GFR (Non- Am 28 Normal [facility] Comment on above: Performed By: #### B MP #### [facility] [address] Glucose [Mass/Vol] 99 mg/dL Normal 70-100 [facility] Comment on above: Result Comment: [place] Glucose Reference Range is dependent on time and content of last meal. Glucose of more than 200 mg/dL in a nonstressed, ambulatory subject supports the diagnosis of Diabetes Mellitus. ADA recommended reference range Performed By: #### B MP #### [address] Potassium [Moles/Vol] 4.0 mmol/L Normal 3.5-5.1 [facility] Comment on above: Performed By: #### B MP #### [address] Sodium [Moles/Vol] 139 mmol/L Normal 136-146 [facility] Comment on above: Performed By: #### B MP #### [address] Urea nitrogen [Mass/Vol] 49 mg/dL High 9-23 [facility] Comment on above: Performed By: #### B MP #### [address] Glucose Poct Glucometerson 0 07-03-2022 Commemt1 Glu2: Cleaned Meter [facility] Comment on above: Result Comment: PERF ORMED BY: [place] [address] PATHOLOGIST GRAPE PICKER SHANNAN GARZA M.D. Performed By: #### G SERGO #### Point of Care testing , Glucose [Mass/Vol] 84 mg/dL Normal [facility] Comment on above: Result Comment: [facility] Glucose Reference Range is dependent on time and content of last meal. Glucose of more than 200 mg/dL in a nonstressed, ambulatory subject supports the diagnosis of Diabetes Mellitus. Performed By: #### G LULS #### Point of Care testing , Glucose [Mass/Vol] 110 mg/dL Normal [facility] Comment on above: Result Comment: [facility] Glucose Reference Range is dependent on time and content of last meal. Glucose of more than 200 mg/dL in a nonstressed, ambulatory subject supports the diagnosis of Diabetes Mellitus. PERFORMED BY: [place] [phone] PATHOLOGIST GRAPE PICKER SHANNAN GARZA M.D. Performed By: #### B MP #### [address] Glucose Poct Glucometerson 0 07-02-2022 Commemt1 [facility] Comment on above: Result Comment: Glu2 : WILL NOTIFY DR/RN Performed By: #### B MP #### [address] Commemt2 Cleaned Meter [facility] Comment on above: Result Comment: PERF ORMED BY: [place] [address] PATHOLOGIST GRAPE PICKER SHANNAN GARZA M.D. Performed By: #### B MP #### [address] Glucose [Mass/Vol] 283 mg/dL Normal [facility] Comment on above: Result Comment: [facility] Glucose Reference Range is dependent on time and content of last meal. Glucose of more than 200 mg/dL in a nonstressed, ambulatory subject supports the diagnosis of Diabetes Mellitus. Performed By: #### B MP #### [address] Commemt1 Glu2: Cleaned Meter [facility] Comment on above: Result Comment: PERF ORMED BY: [place] [address] PATHOLOGIST GRAPE PICKER SHANNAN GARZA M.D. Performed By: #### G LULS #### Point of Care testing , Glucose [Mass/Vol] 116 mg/dL Normal [facility] Comment on above: Result Comment: [place] Glucose Reference Range is dependent on time and content of last meal. Glucose of more than 200 mg/dL in a nonstressed, ambulatory subject supports the diagnosis of Diabetes Mellitus. Performed By: #### G LULS #### Point of Care testing , Glucose Poct Glucometerson 0 07-01-2022 Glucose [Mass/Vol] 160 mg/dL Normal [facility] Comment on above: Result Comment: [place] om Glucose Reference Range is dependent on time and content of last meal. Glucose of more than 200 mg/dL in a nonstressed, ambulatory subject supports the diagnosis of Diabetes Mellitus. PERFORMED BY: [place] [address] PATHOLOGIST GRAPE PICKER SHANNAN GARZA M.D. Performed By: #### B MP #### [address] Glucose [Mass/Vol] 118 mg/dL Normal [facility] Comment on above: Result Comment: [place] om Glucose Reference Range is dependent on time and content of last meal. Glucose of more than 200 mg/dL in a nonstressed, ambulatory subject supports the diagnosis of Diabetes Mellitus. PERFORMED BY: [place] [address] PATHOLOGIST GRAPE PICKER SHANNAN GARZA M.D. Performed By: #### G LULS #### Point of Care testing , Albumin [Mass/volume] in Ser um or PlasmaOrdered By: Mariposa Martinez on 06-30-2022 Albumin [Mass/Vol] 3.3 g/dL 3.2-5.5 [facility] Complete Blood Count Auto Di ffon 06-30-2022 Basophils (Bld) [#/Vol] 0.0 10*3/uL Normal 0.0-0.2 [facility] Comment on above: Result Comment: PERF ORMED BY: [place] [address] PATHOLOGIST GRAPE PICKER SHANNAN GARZA M.D. Performed By: #### P AB, CMP, CBC #### [facility] [address] [place] [address] [place] Basophils/100 WBC (Bld) 0.5 % Normal . [facility] Comment on above: Performed By: #### P AB, CMP, CBC #### [facility] [address] [place] [address] [place] Eosinophils (Bld) [#/Vol] 0.2 10*3/uL Normal 0.0-0.45 [facility] Comment on above: Performed By: #### P AB, CMP, CBC #### [facility] [address] [place] [address] [place] Eosinophils/100 WBC (Bld) 2.7 % Normal . [facility] Comment on above: Performed By: #### P AB, CMP, CBC #### [facility] [address] Erythrocyte distribution width (RBC) [Ratio] 13.5 % Normal 11.9-15.3 [facility] Comment on above: Performed By: #### P AB, CMP, CBC #### [facility] [address] [place] [address] [place] Hematocrit (Bld) [Volume fraction] 42.3 % Normal 34.0-46.4 [facility] Comment on above: Performed By: #### P AB, CMP, CBC #### [facility] [address] [place] [address] [place] Hemoglobin (Bld) [Mass/Vol] 13.7 g/dL Normal 11.8-15.4 [facility] Comment on above: Performed By: #### P AB, CMP, CBC #### [facility] [address] [place] [address] [place] Lymphocytes (Bld) [#/Vol] 1.4 10*3/uL Normal 1.00-4.8 [facility] Comment on above: Performed By: #### P AB, CMP, CBC #### [facility] [address] [place] [address] [place] Lymphocytes/100 WBC (Bld) 20.2 % Normal . [facility] Comment on above: Performed By: #### P AB, CMP, CBC #### [address] MCH (RBC) [Entitic mass] 29.9 pg Normal 24.7-34.3 [facility] Comment on above: Performed By: #### P AB, CMP, CBC #### [address] MCV (RBC) [Entitic vol] 92.7 fL Normal 80-100 [facility] Comment on above: Performed By: #### P AB, CMP, CBC #### [address] Mean Corpuscular HGB Conc 32.3 g/dL Normal 32.0-35.0 [facility] Comment on above: Performed By: #### P AB, CMP, CBC #### [address] Monocytes (Bld) [#/Vol] 0.7 10*3/uL Normal 0.0-0.8 [facility] Comment on above: Performed By: #### P AB, CMP, CBC #### [address] Monocytes/100 WBC (Bld) 10.3 % Normal . [facility] Comment on above: Performed By: #### P AB, CMP, CBC #### [address] Neutrophils (Bld) [#/Vol] 4.7 10*3/uL Normal 1.8-7.7 [facility] Comment on above: Performed By: #### P AB, CMP, CBC #### [address] Neutrophils/100 WBC (Bld) 66.3 % Normal . [facility] Comment on above: Performed By: #### P AB, CMP, CBC #### [address] NRBC% 0.2 /100{WBC} Normal 0-0.5 [facility] Comment on above: Performed By: #### P AB, CMP, CBC #### [address] Platelet mean volume (Bld) [Entitic vol] 9.0 fL Normal 6.3-10.7 [facility] Comment on above: Performed By: #### P AB, CMP, CBC #### [facility] [address] Platelets (Bld) [#/Vol] 201 10*3/uL Normal 150-450 [facility] Comment on above: Performed By: #### P AB, CMP, CBC #### [address] RBC (Bld) [#/Vol] 4.56 10*6/uL Normal 3.60-5.00 [facility] Comment on above: Performed By: #### P AB, CMP, CBC #### [address] WBC (Bld) [#/Vol] 7.1 10*3/uL Normal 3.8-11.6 [facility] Comment on above: Performed By: #### P AB, CMP, CBC #### [address] Comprehensive Metabolic Pane [place] 06-30-2022 Albumin [Mass/Vol] 3.3 g/dL Normal 3.2-5.5 [facility] Comment on above: Performed By: #### P AB, CMP, CBC #### [address] Albumin/Globulin [Mass ratio] 1.3 {ratio} Normal [facility] Comment on above: Performed By: #### P AB, CMP, CBC #### [address] ALP [Catalytic activity/Vol] 127 U/L High 32-92 [facility] Comment on above: Performed By: #### P AB, CMP, CBC #### [address] [place] [address] [place] ALT [Catalytic activity/Vol] 16 U/L Normal 10-60 [facility] Comment on above: Performed By: #### P AB, CMP, CBC #### [facility] [address] Anion gap [Moles/Vol] 11.4 mmol/L Normal 6.0-15.0 [facility] Comment on above: Performed By: #### P AB, CMP, CBC #### [facility] [address] AST [Catalytic activity/Vol] 19 U/L Normal 10-42 [facility] Comment on above: Performed By: #### P AB, CMP, CBC #### [facility] [address] Bilirubin [Mass/Vol] 1.0 mg/dL Normal 0.3-1.2 [facility] Comment on above: Performed By: #### P AB, CMP, CBC #### [facility] [address] Calcium [Mass/Vol] 8.8 mg/dL Normal 8.2-10.2 [facility] Comment on above: Performed By: #### P AB, CMP, CBC #### [facility] [address] [place] [address] [place] Chloride [Moles/Vol] 107 mmol/L Normal 95-114 [facility] Comment on above: Performed By: #### P AB, CMP, CBC #### [facility] [address] [place] [address] [place] CO2 [Moles/Vol] 22.7 mmol/L Normal 22.0-30.0 [facility] Comment on above: Performed By: #### P AB, CMP, CBC #### [facility] [address] [place] [address] [place] Creatinine [Mass/Vol] 1.21 mg/dL High 0.44-1.03 [facility] Comment on above: Performed By: #### P AB, CMP, CBC #### [facility] [address] [place] [address] Creatinine Clr Calc Pharmacy 51.34 [facility] Comment on above: Performed By: #### P AB, CMP, CBC #### [address] Estimated GFR ( Ana 52 [facility] Comment on above: Result Comment: GFR estimated reference range: According to KDOQI guidelines, <60 ml/min/1.73m2 is sufficient to diagnose a patient with chronic kidney disease. Performed By: #### P AB, CMP, CBC #### [address] Estimated GFR (Non- Am 43 [facility] Comment on above: Performed By: #### P AB, CMP, CBC #### [address] Globulin (S) [Mass/Vol] 2.6 g/dL Normal [facility] Comment on above: Performed By: #### P AB, CMP, CBC #### [address] Glucose [Mass/Vol] 141 mg/dL High 70-100 [facility] Comment on above: Result Comment: [place] Glucose Reference Range is dependent on time and content of last meal. Glucose of more than 200 mg/dL in a nonstressed, ambulatory subject supports the diagnosis of Diabetes Mellitus. ADA recommended reference range Performed By: #### P AB, CMP, CBC #### [address] Potassium [Moles/Vol] 4.1 mmol/L Normal 3.5-5.1 [facility] Comment on above: Performed By: #### P AB, CMP, CBC #### [address] Protein [Mass/Vol] 5.9 g/dL Low 6.1-7.9 [facility] Comment on above: Performed By: #### P AB, CMP, CBC #### [address] Sodium [Moles/Vol] 137 mmol/L Normal 136-146 [facility] Comment on above: Performed By: #### P AB, CMP, CBC #### [facility] [address] Urea nitrogen [Mass/Vol] 26 mg/dL High 9- [facility] Comment on above: Performed By: #### P AB, CMP, CBC #### [facility] [address] Globulin Calc (S) [Mass/Vol] Ordered By: Mariposa Martinez on 06-30-2022 Globulin (S) [Mass/Vol] 2.6 g/dL [facility] Glucose Poct Glucometerson 0 06-30-2022 Glucose [Mass/Vol] 171 mg/dL Normal [facility] Comment on above: Result Comment: [facility] Glucose Reference Range is dependent on time and content of last meal. Glucose of more than 200 mg/dL in a nonstressed, ambulatory subject supports the diagnosis of Diabetes Mellitus. PERFORMED BY: [place] [address] PATHOLOGIST GRAPE PICKER SHANNAN GARZA M.D. Performed By: #### B MP #### [address] Glucose [Mass/Vol] 141 mg/dL Normal [facility] Comment on above: Result Comment: [facility] Glucose Reference Range is dependent on time and content of last meal. Glucose of more than 200 mg/dL in a nonstressed, ambulatory subject supports the diagnosis of Diabetes Mellitus. PERFORMED BY: [place] [address] PATHOLOGIST GRAPE PICKER SHANNAN GARZA M.D. Performed By: #### G LULS #### Point of Care testing , Prealbuminon 06-30-2022 Prealbumin [Mass/Vol] 24.2 mg/dL Normal 18.0-38.0 [facility] Comment on above: Result Comment: PERF ORMED BY: [place] [address] PATHOLOGIST GRAPE PICKER SHANNAN GARZA M.D. Performed By: #### P AB, CMP, CBC #### [facility] [address] Protein [Mass/volume] in Ser um or PlasmaOrdered By: Mariposa Martinez on 06-30-2022 Protein [Mass/Vol] 5.9 g/dL 6.1-7.9 [facility] Serum or plasma alanine weeks otransferase measurement without P-5'-P (enzymatic activiOrdered By: Mariposa Martinez on 06-30-2022 ALT No additional P-5'-P [Catalytic activity/Vol] 16 U/L 10-60 [facility] Serum or plasma albumin/glob ulin mass ratioOrdered By: Mariposa Martinez on 06-30-2022 Albumin/Globulin [Mass ratio] 1.3 {ratio} [facility] Serum or plasma alkaline vish sphatase measurement (enzymatic activity/volume)Ordered By: Mariposa Martinez on 06-30-2022 ALP [Catalytic activity/Vol] 127 U/L 32-92 [facility] Serum or plasma aspartate am inotransferase measurement (enzymatic activity/volume)Ordered By: Mariposa Martinez on 06-30-2022 AST [Catalytic activity/Vol] 19 U/L 10-42 [facility] Serum or plasma prealbumin m easurement (mass/volume)Ordered By: Mariposa Martinez on 06-30-2022 Prealbumin [Mass/Vol] 24.2 mg/dL 18.0-38.0 [facility] Serum or plasma total biliru bin measurement (mass/volume)Ordered By: Mariposa Martinez on 06-30-2022 Bilirubin [Mass/Vol] 1.0 mg/dL 0.3-1.2 [facility] CHEMISTRYOrdered By: Lab ROP User on 06-29-2022 Glucose [Mass/Vol] 115 mg/dL High 55 - 99 mg/dL [facility] Comment on above: Result Comment: Emma gris Meter POC Device SN [id number] Invalid Interpretation Code [facility] P[facility] Subsection POC User ID [id number] Invalid Interpretation Code [facility] Subsection POC Username MARIA C MILLER Invalid Interpretation Code [facility] POC Subsection CHEMISTRYOrdered By: Lab ROP User on 06-28-2022 Glucose [Mass/Vol] 120 mg/dL High 55 - 99 mg/dL [facility] POC Subsection Comment on above: Result Comment: Emma gris Meter POC Device SN [id number] Invalid Interpretation Code [facility] POC Subsection POC User ID [id number] Invalid Interpretation Code [facility] POC Subsection POC Username HÉCTOR WERNER Invalid Interpretation Code [facility] POC Subsection Glucose [Mass/Vol] 216 mg/dL High 55 - 99 mg/dL [facility] POC Subsection Comment on above: Result Comment: Emma gris Meter POC Device SN [id number] Invalid Interpretation Code [facility] POC Subsection POC User ID [id number] Invalid Interpretation Code [facility] POC Subsection POC Username ADILSON TOPETE Invalid Interpretation Code [facility] POC Subsection CHEMISTRYOrdered By: Lab ROP User on 06-27-2022 Glucose [Mass/Vol] 211 mg/dL High 55 - 99 mg/dL [facility] POC Subsection Comment on above: Result Comment: Noti mark WILSON/ POC Device SN [id number] Invalid Interpretation Code [facility] POC Subsection POC User ID [id number] Invalid Interpretation Code [facility] POC Subsection POC Username Frances Paul Invalid Interpretation Code [facility] POC Subsection Glucose [Mass/Vol] 161 mg/dL High 55 - 99 mg/dL [facility] POC Subsection Comment on above: Result Comment: Emma gris Meter POC Device SN [id number] Invalid Interpretation Code [facility] POC Subsection POC User ID [id number] Invalid Interpretation Code [facility] POC Subsection POC Username Frances Paul Invalid Interpretation Code [facility] POC Subsection CHEMISTRYOrdered By: Lab ROP User on 06-26-2022 Glucose [Mass/Vol] 209 mg/dL High 55 - 99 mg/dL [facility] POC Subsection Comment on above: Result Comment: Run Lab Confirmation POC Device SN [id number] Invalid Interpretation Code [facility] POC Subsection POC User ID [id number] Invalid Interpretation Code [facility] POC Subsection POC Username SIR MARLENA GOLDSMITH Invalid Interpretation Code [facility] POC Subsection CHEMISTRYOrdered By: SYSTEM SYSTEM on 06-26-2022 Anion gap [Moles/Vol] 12 mmol/L Normal 6 - 16 mEq/L [facility] Remisol Calcium [Mass/Vol] 8.6 mg/dL Low 8.9 - 11. 1 mg/dL [facility] Remisol Chloride [Moles/Vol] 107 mmol/L Normal 101 - 1 11 mmol/L [facility] Remisol CO2 [Moles/Vol] 24 mmol/L Normal 21 - 31 mmol/L [facility] Remisol Creatinine [Mass/Vol] 1.3 mg/dL Normal 0.5 - 1.3 mg/dL [facility] Remisol GFR/1.73 sq M.predicted among blacks MDRD (S/P/Bld) [Vol rate/Area] 48 mL/min/1.73 m2 Low >=59mL/min/ 1.73 m2 [facility] Chem S GFR/1.73 sq M.predicted among non-blacks MDRD (S/P/Bld) [Vol rate/Area] 40 mL/min/1.73 m2 Low >=59mL/min/ 1.73 m2 [facility] Chem S Glucose [Mass/Vol] 187 mg/dL Normal 55 - 199 mg/dL [facility] Magnesium [Mass/Vol] 1.8 mg/dL Normal 1.3 - 2 .4 mg/dL [facility] Potassium [Moles/Vol] 4.5 mmol/L Normal 3.5 - 5.3 mmol/L [facility] Remisol Sodium [Moles/Vol] 138 mmol/L Normal 135 - 145 mmol/L [facility] Rem[facility] Urea nitrogen [Mass/Vol] 29 mg/dL High 5 - 21 mg/dL [facility] Remisol Urea nitrogen/Creatinine [Mass ratio] 22 mg/mg High 10 - 20 [facility] HEMATOLOGYOrdered By: SYSTEM SYSTEM on 06-26-2022 Basophils/100 WBC (Bld) 0.4 % Normal 0.0 - 2.0 % [facility]eAutoSS Basophils/Leukocytes Auto (Bld) [Pure # fraction] 0.0 E9/L Normal 0.0 - 0.2 E9/L [facility] Eosinophils/100 WBC (Bld) 2.9 % Normal 0.0 - 8.0 % [facility] Eosinophils/Leukocytes Auto (Bld) [Pure # fraction] 0.2 E9/L Normal 0.0 - 0.5 E9/L [facility] Lymphocytes/100 WBC (Bld) 22.7 % Normal 14.0 - 50.0 % [facility] Lymphocytes/Leukocytes Auto (Bld) [Pure # fraction] 1.5 E9/L Normal 1.0 - 4.0 E9/L [facility] Monocytes/100 WBC (Bld) 9.7 % Normal 4.0 - 14.0 % [facility]eAuto[facility] Monocytes/Leukocytes Auto (Bld) [Pure # fraction] 0.6 E9/L Normal 0.2 - 1.0 E9/L [facility] Neutrophils/100 WBC (Bld) 64.3 % Normal 36.0 - 75.0 % [facility] Neutrophils/Leukocytes Auto (Bld) [Pure # fraction] 4.3 E9/L Normal 2.0 - 7.5 E9/L [facility] HEMATOLOGYOrdered By: Rui Randall on 06-26-2022 Erythrocyte distribution width (RBC) [Ratio] 13.5 % Normal 10.9 - 14.2 % [facility] Hematocrit (Bld) [Volume fraction] 40.4 % Normal 34.0 - 46.0 % [facility] Hemoglobin (Bld) [Mass/Vol] 12.9 g/dL Normal 12.0 - 16.0 gm/dL [facility] MCH (RBC) [Entitic mass] 30.0 pg Normal 27.0 - 34.0 pg [facility] MCHC (RBC) [Mass/Vol] 31.8 g/dL Normal 31.4 - 36.0 gm/dL [facility] MCV (RBC) [Entitic vol] 94.4 fL Normal 80.0 - 100.0 fL [facility] Platelet mean volume (Bld) [Entitic vol] 8.2 fL Normal 6.4 - 10.8 fL [facility] Platelets (Bld) [#/Vol] 215.0 E9/L Normal 150. 0 - 500.0 E9/L [facility] RBC (Bld) [#/Vol] 4.3 E12/L Normal 4.3 - 5.9 E12/L [facility] WBC corrected for nucl RBC Auto (Bld) [#/Vol] 6.7 E9/L Normal 4.0 - 11.0 E9/L [facility] CHEMISTRYOrdered By: SYSTEM SYSTEM on 06-24-2022 Anion gap [Moles/Vol] 12 mmol/L Normal 6 - 16 mEq/L [facility] Remisol Calcium [Mass/Vol] 9.1 mg/dL Normal 8.9 - 11. 1 mg/dL [facility] Chloride [Moles/Vol] 107 mmol/L Normal 101 - 1 11 mmol/L [facility] Cholesterol [Mass/Vol] 233 mg/dL High 120 - 200 mg/dL [facility] Cholesterol in HDL [Mass/Vol] 40 mg/dL Invalid Interpretation Code [facility] Remisol Cholesterol in LDL [Mass/Vol] 144 mg/dL High <=129mg/dL [facility] Cholesterol in VLDL [Mass/Vol] 47 mg/dL High 7 - 40 mg/dL [facility] CO2 [Moles/Vol] 24 mmol/L Normal 21 - 31 mmol/L [facility] Remisol Creatinine [Mass/Vol] 1.2 mg/dL Normal 0.5 - 1.3 mg/dL [facility] Remisol GFR/1.73 sq M.predicted among blacks MDRD (S/P/Bld) [Vol rate/Area] 53 mL/min/1.73 m2 Low >=59mL/min/ 1.73 m2 [facility] Chem S GFR/1.73 sq M.predicted among non-blacks MDRD (S/P/Bld) [Vol rate/Area] 44 mL/min/1.73 m2 Low >=59mL/min/ 1.73 m2 [facility] Chem S Glucose [Mass/Vol] 203 mg/dL High 55 - 199 mg/dL [facility] Remisol Magnesium [Mass/Vol] 1.7 mg/dL Normal 1.3 - 2 .4 mg/dL [facility] Potassium [Moles/Vol] 4.3 mmol/L Normal 3.5 - 5.3 mmol/L [facility] Sodium [Moles/Vol] 139 mmol/L Normal 135 - 145 mmol/L [facility]isol Triglyceride [Mass/Vol] 237 mg/dL High <=149mg/dL [facility] Urea nitrogen [Mass/Vol] 17 mg/dL Normal 5 - 21 mg/dL [facility] Remisol Urea nitrogen/Creatinine [Mass ratio] 14 mg/mg Normal 10 - 20 [facility] Remisol HEMATOLOGYOrdered By: SYSTEM SYSTEM on 06-24-2022 Basophils/100 WBC (Bld) 0.4 % Normal 0.0 - 2.0 % [facility] Basophils/Leukocytes Auto (Bld) [Pure # fraction] 0.0 E9/L Normal 0.0 - 0.2 E9/L [facility] Eosinophils/100 WBC (Bld) 0.8 % Normal 0.0 - 8.0 % [facility] Eosinophils/Leukocytes Auto (Bld) [Pure # fraction] 0.1 E9/L Normal 0.0 - 0.5 E9/L [facility] Lymphocytes/100 WBC (Bld) 14.2 % Normal 14.0 - 50.0 % [facility] Lymphocytes/Leukocytes Auto (Bld) [Pure # fraction] 0.9 E9/L Low 1.0 - 4.0 E9/L [facility] Monocytes/100 WBC (Bld) 6.9 % Normal 4.0 - 14.0 % [facility] Monocytes/Leukocytes Auto (Bld) [Pure # fraction] 0.4 E9/L Normal 0.2 - 1.0 E9/L [facility] Neutrophils/100 WBC (Bld) 77.7 % High 36.0 - 75.0 % [facility] Neutrophils/Leukocytes Auto (Bld) [Pure # fraction] 4.7 E9/L Normal 2.0 - 7.5 E9/L [facility] HEMATOLOGYOrdered By: Diya Chen on 06-24-2022 Erythrocyte distribution width (RBC) [Ratio] 13.2 % Normal 10.9 - 14.2 % [facility] Hematocrit (Bld) [Volume fraction] 42.2 % Normal 34.0 - 46.0 % [facility] Hemoglobin (Bld) [Mass/Vol] 13.9 g/dL Normal 12.0 - 16.0 gm/dL [facility] MCH (RBC) [Entitic mass] 30.8 pg Normal 27.0 - 34.0 pg [facility] MCHC (RBC) [Mass/Vol] 33.0 g/dL Normal 31.4 - 36.0 gm/dL [facility] MCV (RBC) [Entitic vol] 93.1 fL Normal 80.0 - 100.0 fL [facility] Platelet mean volume (Bld) [Entitic vol] 8.6 fL Normal 6.4 - 10.8 fL [facility] Platelets (Bld) [#/Vol] 213.0 E9/L Normal 150. 0 - 500.0 E9/L [facility] RBC (Bld) [#/Vol] 4.5 E12/L Normal 4.3 - 5.9 E12/L [facility] WBC corrected for nucl RBC Auto (Bld) [#/Vol] 6.0 E9/L Normal 4.0 - 11.0 E9/L [facility] CEFEPIME:SUSC:PT:ISOLATE:ORD QN:MICOrdered By: Deborah Garcia on 06-23-2022 Cefepime MARITZA [Susc] >100,000 cfu/ml Escherichia coli [facility] CHEMISTRYOrdered By: SYSTEM SYSTEM on 06-23-2022 Troponin I.cardiac [Mass/Vol] 5.80 pg/mL Low 10.10 - 27.10 pg/mL [facility] Anion gap [Moles/Vol] 12 mmol/L Normal 6 - 16 mEq/L [facility] Calcium [Mass/Vol] 9.1 mg/dL Normal 8.9 - 11. 1 mg/dL [facility] Chloride [Moles/Vol] 106 mmol/L Normal 101 - 1 11 mmol/L [facility] CO2 [Moles/Vol] 25 mmol/L Normal 21 - 31 mmol/L [facility] Creatinine [Mass/Vol] 1.3 mg/dL Normal 0.5 - 1.3 mg/dL [facility] GFR/1.73 sq M.predicted among blacks MDRD (S/P/Bld) [Vol rate/Area] 48 mL/min/1.73 m2 Low >=59mL/min/ 1.73 m2 [facility] S GFR/1.73 sq M.predicted among non-blacks MDRD (S/P/Bld) [Vol rate/Area] 40 mL/min/1.73 m2 Low >=59mL/min/ 1.73 m2 [facility] S Glucose [Mass/Vol] 144 mg/dL Normal 55 - 199 mg/dL [facility] Potassium [Moles/Vol] 4.6 mmol/L Normal 3.5 - 5.3 mmol/L [facility] Sodium [Moles/Vol] 138 mmol/L Normal 135 - 145 mmol/L [facility] Troponin I.cardiac [Mass/Vol] 6.30 pg/mL Low 10.10 - 27.10 pg/mL [facility] Urea nitrogen [Mass/Vol] 23 mg/dL High 5 - 21 mg/dL [facility] Urea nitrogen/Creatinine [Mass ratio] 18 mg/mg Normal 10 - 20 [facility] CHEMISTRYOrdered By: Aldo Randall on 06-23-2022 HbA1c (Bld) [Mass fraction] 6.0 % High <=5.9% [facility] ChemAutoSS COAGULATIONOrdered By: Cj Randall on 06-23-2022 aPTT Coag (PPP) [Time] 30.6 s Normal 25.1 - 36.5 second(s) [facility] Auto Coag INR Coag (PPP) [Relative time] 0.9 {INR} Invalid Interpretation Code [facility] Auto Coag PT Coag (PPP) [Time] 10.3 s Normal 9.4 - 1 2.5 second(s) [facility] Auto Coag Cefepime MARITZA [[facility]]Ordered B y: Deborah Garcia on 06-23-2022 Escherichia coli Escherichia coli [facility] HEMATOLOGYOrdered By: SYSTEM SYSTEM on 06-23-2022 Basophils/100 WBC (Bld) 0.5 % Normal 0.0 - 2.0 % [facility] HemeAutoSS Basophils/Leukocytes Auto (Bld) [Pure # fraction] 0.0 E9/L Normal 0.0 - 0.2 E9/L [facility] HemeAutoSS Eosinophils/100 WBC (Bld) 2.1 % Normal 0.0 - 8.0 % [facility] HemeAutoSS Eosinophils/Leukocytes Auto (Bld) [Pure # fraction] 0.1 E9/L Normal 0.0 - 0.5 E9/L [facility] HemeAutoSS Lymphocytes/100 WBC (Bld) 18.5 % Normal 14.0 - 50.0 % [facility] HemeAutoSS Lymphocytes/Leukocytes Auto (Bld) [Pure # fraction] 1.2 E9/L Normal 1.0 - 4.0 E9/L [facility] HemeAutoSS Monocytes/100 WBC (Bld) 6.6 % Normal 4.0 - 14.0 % [facility] HemeAutoSS Monocytes/Leukocytes Auto (Bld) [Pure # fraction] 0.4 E9/L Normal 0.2 - 1.0 E9/L [facility] HemeAutoSS Neutrophils/100 WBC (Bld) 72.3 % Normal 36.0 - 75.0 % [facility] HemeAutoSS Neutrophils/Leukocytes Auto (Bld) [Pure # fraction] 4.7 E9/L Normal 2.0 - 7.5 E9/L [facility] HemeAutoSS HEMATOLOGYOrdered By: Chichi Leal on 06-23-2022 Erythrocyte distribution width (RBC) [Ratio] 13.4 % Normal 10.9 - 14.2 % [facility] HemeAutoSS Hematocrit (Bld) [Volume fraction] 42.2 % Normal 34.0 - 46.0 % [facility] HemeAutoSS Hemoglobin (Bld) [Mass/Vol] 13.6 g/dL Normal 12.0 - 16.0 gm/dL [facility] HemeAutoSS MCH (RBC) [Entitic mass] 30.2 pg Normal 27.0 - 34.0 pg [facility] HemeAutoSS MCHC (RBC) [Mass/Vol] 32.2 g/dL Normal 31.4 - 36.0 gm/dL [facility] HemeAutoSS MCV (RBC) [Entitic vol] 93.8 fL Normal 80.0 - 100.0 fL [facility] HemeAutoSS Platelet mean volume (Bld) [Entitic vol] 8.2 fL Normal 6.4 - 10.8 fL [facility] HemeAutoSS Platelets (Bld) [#/Vol] 216.0 E9/L Normal 150. 0 - 500.0 E9/L [facility] HemeAutoSS RBC (Bld) [#/Vol] 4.5 E12/L Normal 4.3 - 5.9 E12/L [facility] HemeAutoSS WBC corrected for nucl RBC Auto (Bld) [#/Vol] 6.5 E9/L Normal 4.0 - 11.0 E9/L [facility] HemeAutoSS URINALYSISOrdered By: Rui Randall on 06-23-2022 Bacteria LM Ql (Urine sed) 3+ /HPF Invalid Interpretation Code Trace/HPF [facility] UA Auto SS Bilirubin Ql (U) Negative (06/23/22 8:23 AM) Normal Negative [facility] UA Auto SS Clarity (U) Clear (06/23/22 8:23 AM) Normal Clear [facility] UA Auto SS Color (U) Yellow (06/23/22 8:23 AM) Normal Yellow [facility] UA Auto SS Epithelial cells.squamous LM.HPF (Urine sed) [#/Area] 0-2 /HPF Normal 0-2/HPF [facility] UA Aut o SS Glucose Test strip (U) [Mass/Vol] Negative (06/23/22 8:23 AM) Normal Negative [facility] UA Auto SS Hemoglobin Ql (U) Negative (06/23/22 8:23 AM) Normal Negative [facility] UA Auto SS Ketones (U) [Mass/Vol] Negative (06/23/22 8:23 AM) Normal Negative [facility] UA Auto SS [place].plasma/[place]. RBC (Bld) [Mass ratio] 0-3 /HPF Normal 0-3/HPF [facility] A uto SS Nitrite Ql (U) Positive *ABN* (06/23/22 8:23 AM) Invalid Interpretation Code Negative [facility] UA Auto SS pH (U) 5.5 *NA* (06/23/22 8:23 AM) Invalid Interpretation Code 5.0 - 9.0 [facility] UA Auto SS Protein (U) [Mass/Vol] Negative (06/23/22 8:23 AM) Normal Negative [facility] UA Auto SS Specific gravity (U) [Rel density] 1.015 *NA* (06/23/22 8:23 AM) Invalid Interpretation Code 1.005 - 1.030 [facility] UA Auto SS UA Spec Desc Clean Catch (06/23/22 8:23 AM) Normal [facility] UA Auto SS Urobilinogen Qn (U) [id number] {Dasia'U}/dL Normal 0.0 - 1.0 EU/dL [facility] UA Auto SS WBC Auto Ql (U) Negative (06/23/22 8:23 AM) Normal Negative [facility] UA Auto SS WBC LM.HPF (Urine sed) [#/Area] 6-15 /HPF Invalid Interpretation Code 0-5/HPF [facility] UA Auto SS CHEMISTRYOrdered By: SYSTEM SYSTEM on 02-16-2022 Albumin [Mass/Vol] 3.8 g/dL Normal 3.3 - 5.0 gm/dL [facility] Anion gap [Moles/Vol] 12 mmol/L Normal 6 - 16 mEq/L [facility] Calcium [Mass/Vol] 8.8 mg/dL Low 8.9 - 11. 1 mg/dL [facility] Chloride [Moles/Vol] 110 mmol/L Normal 101 - 1 11 mmol/L [facility] CO2 [Moles/Vol] 22 mmol/L Normal 21 - 31 mmol/L [facility] Creatinine [Mass/Vol] 1.3 mg/dL Normal 0.5 - 1.3 mg/dL [facility] GFR/1.73 sq M.predicted among blacks MDRD (S/P/Bld) [Vol rate/Area] 48 mL/min/1.73 m2 Low >=59mL/min/ 1.73 m2 [facility] Chem S GFR/1.73 sq M.predicted among non-blacks MDRD (S/P/Bld) [Vol rate/Area] 40 mL/min/1.73 m2 Low >=59mL/min/ 1.73 m2 [facility] S Glucose [Mass/Vol] 112 mg/dL Normal 55 - 199 mg/dL [facility] Phosphate [Mass/Vol] 3.1 mg/dL Normal 1.9 - 4 .6 mg/dL [facility] Potassium [Moles/Vol] 4.6 mmol/L Normal 3.5 - 5.3 mmol/L [facility] Sodium [Moles/Vol] 139 mmol/L Normal 135 - 145 mmol/L [facility] Urea nitrogen [Mass/Vol] 18 mg/dL Normal 5 - 21 mg/dL [facility] Urea nitrogen/Creatinine [Mass ratio] 14 mg/mg Normal 10 - 20 [facility] CHEMISTRYOrdered By: Carolin Rivera on 02-16-2022 Albumin Elph (U) [Mass fraction] mg/dL Invalid Interpretation Code [facility] Creatinine (U) [Mass/Vol] 101.8 mg/dL Invalid Interpretation Code [facility] U Prot/Creat Ratio [facility] Invalid Interpretation Code 0.00 - 200.00 [facility] URINALYSISOrdered By: Rui Randall on 02-16-2022 Bacteria LM Ql (Urine sed) 3+ /HPF Invalid Interpretation Code Trace/HPF [facility] Auto SS Bilirubin Ql (U) Negative (02/16/22 6:30 AM) Normal Negative [facility] UA Auto SS Clarity (U) Cloudy *ABN* (02/16/22 6:30 AM) Invalid Interpretation Code Clear [facility] UA Auto SS Color (U) Yellow (02/16/22 6:30 AM) Normal Yellow [facility] UA Auto SS Epithelial cells.squamous LM.HPF (Urine sed) [#/Area] 3-4 /HPF Normal 0-2/HPF [facility] UA Aut o SS Glucose Test strip (U) [Mass/Vol] Negative (02/16/22 6:30 AM) Normal Negative [facility] UA Auto SS Hemoglobin Ql (U) Trace *ABN* (02/16/22 6:30 AM) Invalid Interpretation Code Negative [facility] UA Auto SS Ketones (U) [Mass/Vol] Negative (02/16/22 6:30 AM) Normal Negative [facility] UA Auto SS [place].plasma/[place]. RBC (Bld) [Mass ratio] 0-3 /HPF Normal 0-3/HPF [facility] A uto SS Nitrite Ql (U) Negative (02/16/22 6:30 AM) Normal Negative [facility] UA Auto SS pH (U) 5.0 *NA* (02/16/22 6:30 AM) Invalid Interpretation Code 5.0 - 9.0 [facility] UA Auto SS Protein (U) [Mass/Vol] Negative (02/16/22 6:30 AM) Normal Negative [facility] UA Auto SS Specific gravity (U) [Rel density] 1.025 *NA* (02/16/22 6:30 AM) Invalid Interpretation Code 1.005 - 1.030 [facility] UA Auto SS UA Spec Desc Clean Catch (02/16/22 6:30 AM) Normal [facility] UA Auto SS Urobilinogen Qn (U) [id number] {Dasia'U}/dL Normal 0.0 - 1.0 EU/dL [facility] UA Auto SS WBC Auto Ql (U) Trace *ABN* (02/16/22 6:30 AM) Invalid Interpretation Code Negative [facility] UA Auto SS WBC LM.HPF (Urine sed) [#/Area] 6-15 /HPF Invalid Interpretation Code 0-5/HPF [facility] UA Auto SS Progress Noteson 12-10-2021 [employer] Interface Message Text EMERGENCY TRIAGE, TREAT AND TRANSPORT (ET3) DOCUMENTATION OF TELEHEALTH VISIT Date / Time: 12/10/2021 / 1245AM Name: Chacho Edwards: 1945 SSN: (Not on file) EMS Agency: [facility] [x] Verbal consent obtained [x] Implied consent - patient with potential emergency medical condition requiring assessment of capacity to refuse treatment and/or transport VITAL SIGNS: see flowsheet documentation Reason for Telehealth Visit: Chief Complaint Patient presents with * Fall Fell down while moving stuff landing on her left wrist. Unable to get up and called 911 History of Present Ilness: 76-year-old diabetic female who was moving stuff around the house when she slid to the floor gently as per the EMS. Denies any head injury or loss of consciousness. Impacted her left wrist which is sore. Unable to get up and called 911 for help. Patient refusing transfer to the hospital stating she is feeling better other than soreness of her wrist. Additional pertinent PMHx, SocHx, FamHx: DM Review of Systems: Denies the following: Chest pain shortness of breath headache dizziness lightheadedness Exam: General: Awake, no distress ENT: normocephalic, atraumatic Pulmonary: No respiratory distress Cardiovascular: Well perfused Neurologic: Oriented to person, place, time and events. Moving all extremities equally, slight redness and soreness involving the left wrist which does not look deformed as per the EMS Psychiatric: Appropriate. Good insight and judgement. Medical Decision Makin-year-old diabetic female with a ground level fall secondary to mechanical fall. No head injury or loss of consciousness. No apparent injuries other than soreness of the left wrist. Patient states that she can even demonstrate how to dance . Patient advised to take Tylenol for pain control. Seek visit with a medical provider if he continues to have wrist tenderness in the morning and get imaging. Disposition Supported by Telehealth Assessment: ET3 transport decisions: Refused transport EMS Disposition Reported: Same ET3 Encounter Completed by: Jasbir Jay MD Normal [employer] GLUCOSE-POCTon 05-24-2021 Glucose [Mass/Vol] 185 mg/dL High 74 - 99 [facility] Comment on above: Performed By: #### G CALE #### [facility] [address] [place] [address] Glucose [Mass/Vol] 165 mg/dL High 74 - 99 [facility] Comment on above: Performed By: #### G CALE #### [facility] [address] [place] [address] Order Reconciliationon 05-24 Order Reconciliation Page 1 Discharge Reconciliation Document Reconciliation Type: Discharge requested on behalf of Harjeet Virk (Physician) done by Harjeet Virk) Discharge - Reconciliation: 24-May-2021 09:34 by: Harjeet Virk) Home Medications EnteredHOME MEDICATIONS AT DISCHARGE DateReconciliation Comment/ Additional Information atenolol 50 mg oral tablet 0.5 TAB IN THE AM, 1 TAB IN THE PM 17-May-2021 13:42 atenolol 50 mg oral tablet 0.5 TAB IN THE AM, 1 TAB IN THE PM 17-May-2021 13:42 atenolol 50 mg oral tablet is continued as atenolol 50 mg oral tablet furosemide 20 mg oral tablet 0.5 tab(s) orally every other day 24-May-2021 09:00 furosemide 20 mg oral tablet 0.5 tab(s) orally every other day 24-May-2021 09:00 furosemide 20 mg oral tablet is continued as furosemide 20 mg oral tablet gabapentin 600 mg oral tablet orally 2 times a day 17-May-2021 13:41 gabapentin 600 mg oral tablet orally 2 times a day 17-May-2021 13:41 gabapentin 600 mg oral tablet is continued as gabapentin 600 mg oral tablet HumaLOG 100 units/mL subcutaneous solution unit(s) subcutaneous 2 times a day, 25 UNITS IN THE AM, 35 UNITS IN THE PM 24-May-2021 09:02 HumaLOG 100 units/mL subcutaneous solution unit(s) subcutaneous 2 times a day, 25 UNITS IN THE AM, 35 UNITS IN THE PM 24-May-2021 09:02 HumaLOG 100 units/mL subcutaneous solution is continued as HumaLOG 100 units/mL subcutaneous solution lisinopril 20 mg oral tablet 1 tab(s) orally once a day 17-May-2021 13:40 lisinopril 20 mg oral tablet 1 tab(s) orally once a day 17-May-2021 13:40 lisinopril 20 mg oral tablet is continued as lisinopril 20 mg oral tablet lovastatin 40 mg oral tablet 1.5 tab(s) orally once a day 24-May-2021 09:03 lovastatin 40 mg oral tablet 1.5 tab(s) orally once a day 24-May-2021 09:03 lovastatin 40 mg oral tablet is continued as lovastatin 40 mg oral tablet omeprazole 40 mg oral delayed release capsule 1 cap(s) orally once a day 17-May-2021 13:43 omeprazole 40 mg oral delayed release capsule 1 cap(s) orally once a day 17-May-2021 13:43 omeprazole 40 mg oral delayed release capsule is continued as omeprazole 40 mg oral delayed release capsule traMADol 50 mg oral tablet 2 tab(s) orally 2 times a day 24-May-2021 09:05 Discontinued; Discontinue from ORM traMADol 50 mg oral tablet is not required Tylenol 325 mg oral capsule 2 orally every 6 hours, As Needed 24-May-2021 09:09 Tylenol 325 mg oral capsule 2 orally every 6 hours, As Needed 24-May-2021 09:09 Tylenol 325 mg oral capsule is continued as Tylenol 325 mg oral capsule Victoza 1.8 DAILY 24-May-2021 09:08 Victoza 1.8 DAILY 24-May-2021 09:08 Victoza is continued as Victoza Current OrdersDateHOME MEDICATIONS AT DISCHARGE DateReconciliation Comment/ Additional Information ceFAZolin 3 gram/ D5W 100 mL. (ANCEF)OnceRecommende d Infusion Time: 30 minute(s)Clinician Notes: x 1 dose preop 20-May-2021 15:38 ceFAZolin 3 gram/ D5W 100 mL. is not required fentaNYL Injectable (SUBLIMAZE)DOSE = 50 microgram(s) IntraVenous Push Every 5 Minutes, PRN Pain - Mod (4-6) (PACU) if unable to take oralClinician Notes: Ana-operative order ONLYMax total of 200 micrograms regardless of dose. 24-May-2021 09:25 fentaNYL Injectable is not required HYDROmorphone Injectable (DILAUDID)DOSE = 0.5 mg IntraVenous Push Every 5 Minutes, PRN Pain - Severe (7-10) (PACU)Clinician Notes: Ana-operative order ONLYMax total of 4 mg regardless of dose. 24-May-2021 09:25 HYDROmorphone Injectable is not required Metoclopramide Injectable (REGLAN)DOSE = 10 mg IntraVenous Push Once, PRN PONV, first lineClinician Notes: Ana-operative order ONLY 24-May-2021 09:25 Metoclopramide Injectable is not required oxyCODONE Immediate Release Tablet (OXYIR, ROXICODONE)DOSE = 10 mg Oral Every 4 Hours, PRN Pain - Severe (7-10) (PACU) when able to take oralClinician Notes: Ana-operative order ONLY 24-May-2021 09:25 oxyCODONE Immediate Release is not required oxyCODONE Immediate Release Tablet (OXYIR, ROXICODONE)DOSE = 5 mg Oral Every 4 Hours, PRN Pain - Mod (4-6) (PACU) when able to take OralClinician Notes: Ana-operative order ONLY 24-May-2021 09:25 oxyCODONE Immediate Release is not required Home Medications Added During Discharge Reconciliation oxyCODONE 5 mg oral tablet 1 tab(s) orally every 4 hours, As Needed All Active Home Medications at time of Discharge Reconciliation: 24-May-2021 09:34 atenolol 50 mg oral tablet 0.5 TAB IN THE AM, 1 TAB IN THE PM furosemide 20 mg oral tablet 0.5 tab(s) orally every other day gabapentin 600 mg oral tablet orally 2 times a day HumaLOG 100 units/mL subcutaneous solution unit(s) subcutaneous 2 times a day, 25 UNITS IN THE AM, 35 UNITS IN THE PM lisinopril 20 mg oral tablet 1 tab(s) orally once a day lovastatin 40 mg oral tablet 1.5 tab(s) orally once a day omeprazole 40 mg oral delayed release capsule 1 cap(s) orally once a (more content not included)... Normal [facility] Patient Profile - Preop v3on 05-24-2021 Patient Profile - Preop v3 Patient Profile - Preop: Initial Info: Patient DemographicsName: CHACHO EDWARDS Date: 1945 Address: [address] [place] [address] Primary Phone [phone] How to be AddressedSONJA Spoken Language PreferredEnglish Source of Informationpatient Stated Reason for AdmissionBACK SURGERY Primary Contact Name and NumberANGELA SOO- [phone] Patient Belongingsremains with patient Patient Belongings Remaining with Patientclothing; vision aids Medications Brought to Hospitalno General Health: Weight in kg120.5 kilogram(s) Weight in vri097.6 pound(s) Weight Methodactual (measured) Scale Typechair Height in feet5 feet Height in inches4 inch(es) Height in cm162.5 centimeter(s) Height Methodstated BMI (kg/m2)45.633 square meter Patient or Family Member Reaction to Anesthesiano previous reaction Blood Avoidance/Restriction snone Previous Transfusion Reactionno Health Mgmt: Symptoms/Conditions Managed at Homecardiovascular; endocrine; gastrointestinal; musculoskeletal; SE PROBLEM LIST; peripheral/neurovascu lar Cardiovascular Symptoms/Conditionshy pertension Cardiovascular Symptoms/Conditions CommentHLD Endocrine Symptoms/Conditionsdi abetes Gastrointestinal Symptoms/Conditionsre flux/heartburn Musculoskeletal Symptoms/Conditionsba ck pain Peripheral Neurovascular Symptoms/Conditions CommentHISTORY OF DVT Barriers to Managing Healthnone Relationship/Environ: Lives Withparent(s) Living Arrangementshouse Resource/Environmenta l Concernsnone [facility] home with help/services Services Anticipated at Transitionnone Tobacco Use: Tobacco Useno Pre-op Checklist: Arrival [id number] Arrival Time08:04 Procedure TypeT9 LAMINECTOMY FOR INSERTION OF SPINAL CORD STIMULATOR AND PULSE GENERATOR NPOyes Last Food [id number] 20:00 Last Clear Fluid [id number] 07:30 ID Band On Patientpatient ID (name), allergy Consent Signedyes H&P Completeyes Anesthesia Assessment Completedpending EKG PerformedON CHART Chest X-Ray Performednot ordered Preop Antibioticssent to OR COVID 19 Results in Last 7 daysYES Glucose [id number] Type and Screen Resultedyes HCG Urine TestN/A Chlorhexadine Bath Givencompleted at home Nasal Antiseptic Appliednot applicable Soap and Water Bath the Night Before Surgeryyes Hair Washed with Shampooyes SCD's Appliedsent to OR [place] Hose Appliednot ordered Bowel Prepno Additional Information: Information Review: Allergies, Home Meds and Significant Events have been Reviewed and Verified with Patient/Familyyes Allergy, Intolerance, Adverse Event: Allergies: Reglan: Drug, Hives/Urticaria, Active Biaxin: Drug, Hives/Urticaria, Active Lyrica: Drug, Swelling/Edema, Active Bactrim: Drug, Swelling/Edema, Rash, Active sulfa drugs: Drug Category, Hives/Urticaria, Active Significant Events: 24-May-2021 TUBAL LIGATION: Past Surgical History, Active 24-May-2021 RIGHT EYE CATARACT: Past Surgical History, Active 24-May-2021 LEFT KNEE ARTHROSCOPY: Past Surgical History, Active 24-May-2021 LIPOSUCTION ABDOMEN: Past Surgical History, Active 24-May-2021 ABDOMINOPLASTY: Past Surgical History, Active 24-May-2021 Cholecystectomy: Past Surgical History, Active Electronic Signatures: Magalys Bal (RN) (Signed 24-May-2021 09:47) Authored: Initial Info, General Health, Health Mgmt, Relationship/Environ, Tobacco Use, Pre-op Checklist, Additional Information Last Updated: 24-May-2021 09:47 by Magalys Bal (RN) Normal [facility] CORONAVIRUS 2019, SCREEN ASY MPTOMATICon 05-23-2021 SARS-CoV-2 (COVID-19) RNA CARMELA+probe Ql (Unsp spec) Not detected Normal Not Detected [facility] Comment on above: Result Comment: . This assay is designed to detect the N, ORF1ab and/or S genes of SARS-CoV-2 via nucleic acid amplification. A Negative (NOT DETECTED) result does not preclude 2019-nCoV infection since the adequacy of sample collection and/or low viral burden may result in presence of viral nucleic acids below the clinical sensitivity of this test method. Negative (NOT DETECTED) result should not be used as the sole basis for treatment or other patient management decisions. Rather negative results should be combined with clinical observations, patient history, and epidemiological information to make patient management decisions. Fact sheet for providers: https://www.fda.gov/media/436207/download Fact sheet for patients: https://www.fda.gov/media/749679/download This test has received FDA Emergency Use Authorization (EUA) and has been verified by [facility] ([facility]). This test is only authorized for the duration of time that circumstances exist to justify the authorization of the emergency use of in vitro diagnostic tests for the detection of SARS-CoV-2 virus and/or diagnosis of COVID-19 infection under section 564(b)(1) of the Act, 21 U.S.C. 360bbb-3(b)(1), unless the authorization is terminated or revoked sooner. [facility] is certified under CLIA-88 as qualified to perform high complexity testing. Testing is performed in the [facility] laboratories located at [id number] [place] [address]. Performed By: #### C OVSC #### [facility] [id number] [place] [address] Lab Specimen Source Nasal, Nasopharyngeal Normal [facility] Comment on above: Performed By: #### C OVSC #### [place] [address] Covid 19 Resultson 1 SARS-CoV-2 (COVID-19) RNA CARMELA+probe Ql (Unsp spec) NEGATIVE COVID-19 Test Coronaviruses are common world-wide and are the cause of many common colds. SARS-COV2 is a new coronavirus that began circulating worldwide in 2019 so we are calling it COVID-19. It has been estimated that four out of five patients with COVID-19 will recover at home without the need for medical attention. Symptoms of COVID-19 may include cough, fever, shortness of breath, loss of taste or smell and other flu-like symptoms including chills, sore muscles, sore throat, and headache. Severe illness is more common in older people and people with other health problems such as high blood pressure, obesity, and immune system problems. If the test is positive, you have COVID-19. You will be contacted by the ordering physicians office and instructed to remain on home isolation, in accordance with CDC guidelines. You may also be contacted by the [facility] to see if any of your close contacts may have been exposed to the virus and need to quarantine. If the test is negative, you likely do not have COVID-19 at this time, but you still may have a different illness that can spread to other people (like Influenza, or the Flu) and could still be at risk for getting COVID-19. We recommend that you stay away from other people to limit the spread of illness until your symptoms are improving and you are fever-free for 24 hours without the use of fever lowering medications such as acetaminophen or ibuprofen. No test is 100% accurate so if you are still concerned you may have COVID-19, talk to your doctor about the need to continue to stay away from others. Medicines Unless your provider told you not to use the following: Acetaminophen (Tylenol and others) is generally safe. Anti-inflammatory medications, such as Ibuprofen (Advil or Motrin) or Naproxen (Aleve) can also be used. Czsd-kpi-hdascyw cough and cold medicines can be used according to the instructions on the package. Some zvxo-xju-cjpmrit medicines also contain acetaminophen. Make sure you are not taking more than your recommended dose. For those not hospitalized, there is no specific treatment available for this illness. Antibiotics do not treat Coronaviruses. Follow-Up Follow up with your doctor by scheduling a virtual visit or consider follow-up at one of our urgent care fever clinics. If you are having difficulty breathing, or are very weak and having difficulty standing, this is a medical emergency. Call 911 or have someone take you to the nearest emergency room immediately. If possible, wear a facemask. Additional guidance from the CDC for patients who tested POSITIVE for COVID-19 How to isolate: Isolate yourself in a specific room at home and limit your contact with others. Use a separate bathroom from other members of the household, when possible. Leave home only to get essential medical care. Do not go to work, school or public areas. Avoid using public transportation, ride-sharing, or taxis. Restrict contact with pets and other animals. If you must care for your pet or be around animals while you are sick, wash your hands before and after your interaction and wear a facemask. Make sure that shared spaces in the home have good airflow, such as by an air conditioner or an opened window, weather permitting. Personal Hygiene Procedures: Wear a face mask when in the same room as other people or pets. If a face mask interferes with your breathing, others should wear a mask when sharing space with you. Frequent hand-washing: wash your hands with soap and water for at least 20 seconds. If soap and water are not available, use alcohol-based hand wool hat forming machine tender. Avoid touching your eyes, nose, and mouth with unwashed hands. Household Hygiene Procedures: Avoid sharing personal household items such as dishes, glassware, cups, eating utensils, towels or bedding with other people or pets in your home. After use, these items should be washed with soap and hot water. Disinfect all high-touch surfaces every day with antibacterial cleaning solutions such as Lysol wipes, bleach, cleansers, etc. High-touch surfaces include tabletops, doorknobs, bathroom fixtures, toilets, phones, keyboards, tablets and bedside tables. Immediately clean any surfaces that may have blood, poop or body fluids on them, using antibacterial cleaning solutions such as Lysol wipes, bleach, cleansers, etc. If clothing or bedding come into contact with blood, poop or body fluids, they should be washed immediately. Follow the directions on the laundry detergent and clothing labels but hot water is recommended when possible. Stopping home isolation precautions: If possible, consult your doctor before stopping home isolation precautions. According to the CDC, you can discontinue home isolation precautions when you have met both of these criteria: Your fever and respiratory symptoms have been gone for 24 darlyn (more content not included)... Normal [facility]Con 05-17-2021 Erythrocyte distribution width (RBC) [Ratio] 12.5 % Normal 11.5 - 14.5 [facility] [place] Comment on above: Performed By: #### C BC #### [address] [address] Hematocrit (Bld) [Volume fraction] 42.5 % Normal 36.0 - 46.0 [facility] [place] Comment on above: Performed By: #### C BC #### [address] [address] Hemoglobin (Bld) [Mass/Vol] 13.8 g/dL Normal 12.0 - 16.0 [facility] [place] Comment on above: Performed By: #### C BC #### [address] [address] MCHC (RBC) [Mass/Vol] 32.5 g/dL Normal 32.0 - 36.0 [facility] Comment on above: Performed By: #### C BC #### [address] [address] MCV (RBC) [Entitic vol] 94 fL Normal 80 - 100 [facility] Comment on above: Performed By: #### C BC #### [address] [address] NUCLEATED RBC 0.0 /100 WBC Normal 0.0 - 0.0 [facility] [place] Comment on above: Performed By: #### C BC #### [address] [address] Platelets (Bld) [#/Vol] 234 10*3/uL Normal 150 - 450 [facility] [place] Comment on above: Performed By: #### C BC #### [address] [address] RBC 4.50 x10E12/L Normal 4.00 - 5.20 [facility] [place] Comment on above: Performed By: #### C BC #### [address] [address] WBC (Bld) [#/Vol] 5.7 10*3/uL Normal 4.4 - 11.3 [facility] Comment on above: Performed By: #### C BC #### [address] [address] COMPREHENSIVE PANELon 2020 Albumin [Mass/Vol] 4.1 g/dL Normal 3.4 - 5.0 [facility] Comment on above: Performed By: #### C MP #### [address] [address] ALP [Catalytic activity/Vol] 142 U/L High 33 - 136 [facility] [place] Comment on above: Performed By: #### C MP #### [address] [address] ALT [Catalytic activity/Vol] 8 U/L Normal 7 - 45 [facility] [place] Comment on above: Result Comment: Cherry ents treated with Sulfasalazine may generate falsely decreased results for ALT. Performed By: #### C MP #### [address] [address] Anion gap [Moles/Vol] 11 mmol/L Normal 10 - 20 [facility] [place] Comment on above: Performed By: #### C MP #### [address] [address] AST [Catalytic activity/Vol] 11 U/L Normal 9 - 39 [facility] [place] Comment on above: Performed By: #### C MP #### [address] [address] Bilirubin [Mass/Vol] 0.5 mg/dL Normal 0.0 - 1.2 [facility] [place] Comment on above: Performed By: #### C MP #### [address] [address] Calcium [Mass/Vol] 8.7 mg/dL Normal 8.6 - 10.3 [facility] Comment on above: Performed By: #### C MP #### [address] [address] Chloride [Moles/Vol] 107 mmol/L Normal 98 - 107 [facility] [place] Comment on above: Performed By: #### C MP #### [address] [address] Creatinine [Mass/Vol] 1.32 mg/dL High 0.50 - 1.05 [facility] Comment on above: Performed By: #### C MP #### [address] [address] GFR- AM. 47 mL/min/1.73m2 Abnormal >60 [facility] [place] Comment on above: Result Comment: CALC ULATIONS OF ESTIMATED GFR ARE PERFORMED USING THE MDRD STUDY EQUATION FOR THE IDMS-TRACEABLE CREATININE METHODS. CLIN CHEM 2007;53:766-72 Performed By: #### C MP #### [address] [address] GFR-NON AM. 39 mL/min/1.73m2 Abnormal >60 [facility] [place] Comment on above: Performed By: #### C MP #### [address] [address] Glucose [Mass/Vol] 140 mg/dL High 74 - 99 [facility] Comment on above: Performed By: #### C MP #### [address] [address] HCO3 (Bld) [Moles/Vol] 26 mmol/L Normal 21 - 32 [facility] Comment on above: Performed By: #### C MP #### [address] [address] Potassium [Moles/Vol] 4.1 mmol/L Normal 3.5 - 5.3 [facility] [place] Comment on above: Performed By: #### C MP #### [address] [address] Protein [Mass/Vol] 6.7 g/dL Normal 6.4 - 8.2 [facility] Comment on above: Performed By: #### C MP #### [address] [address] Sodium [Moles/Vol] 140 mmol/L Normal 136 - 145 [facility] Comment on above: Performed By: #### C MP #### [address] [address] Urea nitrogen [Mass/Vol] 19 mg/dL Normal 6 - 23 [facility] [place] Comment on above: Performed By: #### C MP #### [address] [address] STAPH/MRSA SCREENon 05-17-20 STAPH/MRSA SCREEN PATIENT: RAHUL EDWARDS LOCATION: [facility]#: [id number] : 47 AGE: SEX: F ORDERED BY: SAM VIRK SOURCE: ANTERIOR NARES COLLECTED: 05/17/21 13:17 ANTIBIOTICS AT ALYCE.: RECEIVED : 05/17/21 21:24 SITE: NARE R E S U L T S STAPH/MRSA SCREEN FINAL 05/19/21 09:50 NO Staphylococcus aureus ISOLATED. [facility] [place] Comment on above: Performed By: #### S TAPH #### [facility] [address] [place] [address] TYPE + SCREENon 05-17-2021 ABO TYPE O Normal [facility] [place] Comment on above: Performed By: #### T +S #### [address] [place] [address] RH TYPE Positive Normal [facility] [place] Comment on above: Performed By: #### T +S #### [address] [place] [address] Vital Signs Date Time Vital Sign Value Performing Clinician Facility 05-21-2023 13:25-0500 Blood Pressure Location Radha Lue [facility] 05-21-2023 13:25-0500 Diastolic blood pressure 107 mm[Hg] Radha Lue [facility] 05-21-2023 13:25-0500 Heart rate 78 /min Radha Lue [facility] 05-21-2023 13:25-0500 Respiratory rate 16 /min Radha Lue [facility] 05-21-2023 13:25-0500 Systolic blood pressure 145 mm[Hg] Radha Lue [facility] 03-02-2023 11:22-0400 Diastolic blood pressure 74 mm[Hg] Mirna [facility] 03-02-2023 11:22-0400 Heart rate 67 /min [facility]na [facility] 03-02-2023 11:22-0400 Mean blood pressure 92 mm[Hg] Mirna [facility] 03-02-2023 11:22-0400 Respiratory rate 14 /min [facility]na [facility] 03-02-2023 11:22-0400 Systolic blood pressure 129 mm[Hg] Mirna [facility] 01-19-2023 09:14-0400 Diastolic blood pressure 66 mm[Hg] Dustin Zumbar [facility] 01-19-2023 09:14-0400 Heart rate 67 /min Dustin Zum[facility] 01-19-2023 09:14-0400 Mean blood pressure 85 mm[Hg] Dustin Zumbar [facility] 01-19-2023 09:14-0400 Respiratory rate 12 /min Dustin [facility] 01-19-2023 09:14-0400 Systolic blood pressure 123 mm[Hg] Dustin Zumbar [facility] 01-10-2023 09:06-0400 Heart rate 70 /min Dustin [facility] 01-10-2023 09:06-0400 SaO2% (BldA) [Mass fraction] 98 % Dustin [facility]um[facility] 01-10-2023 09:06-0400 Respiratory rate 16 /min Dustin [facility] 01-10-2023 09:06-0400 Diastolic blood pressure 79 mm[Hg] Dustin Zumbar [facility] 01-10-2023 09:06-0400 Mean blood pressure 103 mm[Hg] Dustin [facility]um[facility] 01-10-2023 09:06-0400 Systolic blood pressure 151 mm[Hg] Dustin Zumbar [facility] 01-10-2023 09:02-0400 Heart rate 70 /min Dustin [facility] 01-10-2023 09:02-0400 SaO2% (BldA) [Mass fraction] 97 % Dustin [facility] 01-10-2023 09:02-0400 Respiratory rate 16 /min Dustin [facility] 01-10-2023 09:02-0400 Diastolic blood pressure 69 mm[Hg] Dustin Zumbar [facility] 01-10-2023 09:02-0400 Mean blood pressure 88 mm[Hg] Dustin [facility]um[facility] 01-10-2023 09:02-0400 Systolic blood pressure 126 mm[Hg] Dustin Zumbar [facility] 01-10-2023 09:02-0400 Body temperature 97.52 [degF] Dustin [facility]um[facility] 01-10-2023 08:55-0400 Diastolic blood pressure 64 mm[Hg] Dustin Zumbar [facility] 01-10-2023 08:55-0400 Heart rate 67 /min Dustin [facility] 01-10-2023 08:55-0400 SaO2% (BldA) [Mass fraction] 99 % Dustin [facility] 01-10-2023 08:55-0400 Systolic blood pressure 109 mm[Hg] Dustin Zumbar [facility] 01-10-2023 08:22-0400 Respiratory rate 18 /min Dustin [facility] 01-10-2023 07:40-0400 Mean blood pressure 94 mm[Hg] Dustin [facility]umbar [facility] 01-10-2023 07:40-0400 Body temperature 97.7 [degF] Dustin Zumbar [facility] 12-31-2022 22:35-0400 Body temperature 97.88 [degF] Pantera Billie [facility] 12-31-2022 22:35-0400 Diastolic blood pressure 92 mm[Hg] Pantera [facility] 12-31-2022 22:35-0400 Heart rate 78 /min [facility] 12-31-2022 22:35-0400 Respiratory rate 20 /min [facility] 12-31-2022 22:35-0400 SaO2% (BldA) [Mass fraction] 94 % [facility] 12-31-2022 22:35-0400 Systolic blood pressure 169 mm[Hg] [facility] 12-13-2022 07:18-0400 Heart rate 71 /min Dustin [facility] 12-13-2022 07:18-0400 SaO2% (BldA) [Mass fraction] 98 % Dustin [facility] 12-13-2022 07:18-0400 Body temperature 97.7 [degF] Dustin [facility]um[facility] 12-13-2022 07:18-0400 Diastolic blood pressure 81 mm[Hg] Dustin [facility]um[facility] 12-13-2022 07:18-0400 Mean blood pressure 102 mm[Hg] Dustin [facility] 12-13-2022 07:18-0400 Systolic blood pressure 145 mm[Hg] Dustin [facility]um[facility] 12-13-2022 07:17-0400 Respiratory rate 12 /min [facility]in [facility] 12-06-2022 11:06-0400 Diastolic blood pressure 70 mm[Hg] Dustin [facility]um[facility] 12-06-2022 11:06-0400 Heart rate 67 /min Dustin [facility] 12-06-2022 11:06-0400 Mean blood pressure 84 mm[Hg] Dustin [facility]um[facility] 12-06-2022 11:06-0400 Respiratory rate 18 /min [facility]in [facility] 12-06-2022 11:06-0400 Systolic blood pressure 111 mm[Hg] Dustin [facility]um[facility] 10-26-2022 12:48-0400 Diastolic blood pressure 76 mm[Hg] Dustin [facility]umbar [facility] 10-26-2022 12:48-0400 Heart rate 75 /min Dustin [facility] 10-26-2022 12:48-0400 Mean blood pressure 97 mm[Hg] Dustin [facility]um[facility] 10-26-2022 12:48-0400 Respiratory rate 18 /min [facility]in [facility] 10-26-2022 12:48-0400 Systolic blood pressure 140 mm[Hg] Dustin [facility]um[facility] 10-24-2022 11:40-0400 Body height 158.75 cm Daryl Oliver Other [employer] Other 10-24-2022 11:40-0400 Body mass index (BMI) [Ratio] 51.83 kg/m2 Daryl Oliver Other [employer] Other 10-24-2022 11:40-0400 Body weight 130.64 kg Daryl Oliver Other [employer] [facility] [employer] Other 10-24-2022 11:40-0400 Diastolic blood pressure 70 mm[Hg] Daryl Oliver Other [employer] [facility] [employer] Other 10-24-2022 11:40-0400 Systolic blood pressure 124 mm[Hg] Daryl Oliver Other [facility] [employer] Other 09-02-2022 12:08-0400 Blood Pressure Location [facility] 09-02-2022 12:08-0400 Body temperature 97.52 [degF] [facility] 09-02-2022 12:08-0400 Diastolic blood pressure 76 mm[Hg] Verónica Orzech [facility] 09-02-2022 12:08-0400 Heart rate 97 /min Verónica Orzech [facility] 09-02-2022 12:08-0400 SaO2% (BldA) [Mass fraction] 96 % Verónica Orzech [facility] 09-02-2022 12:08-0400 Systolic blood pressure 118 mm[Hg] Verónica Orzech [facility] 07-13-2022 03:59-0500 Body temperature 97.6 [degF] MD Lani Méndez Work Phone: [facility] 07-13-2022 03:59-0500 Diastolic blood pressure 74 mm[Hg] MD Lani Méndez Work Phone: [facility] 07-13-2022 03:59-0500 Heart rate 73 /min MD Lani Méndez Work Phone: [facility] 07-13-2022 03:59-0500 Respiratory rate 16 /min MD Lani Méndez Work Phone: [facility] 07-13-2022 03:59-0500 SaO2% (BldA) [Mass fraction] 95 % MD Lani Méndez Work Phone: [facility] 07-13-2022 03:59-0500 Systolic blood pressure 116 mm[Hg] MD Lani Méndez Work Phone: [facility] 07-09-2022 05:06-0500 Body weight 124.1 kg MD Lnai Méndez Work Phone: [facility] 07-07-2022 16:24-0500 Body height 162.56 cm MD Lani Méndez Work Phone: [facility] 07-02-2022 08:26-0500 Inhaled oxygen concentration 97 % MD Lani Méndez Work Phone: [facility] 06-27-2022 16:00-0500 Hourly Rounding [facility] 06-27-2022 16:00-0500 Promise to Return [facility]an [facility] 06-27-2022 15:10-0500 Hourly [address] [facility]an [facility] 06-27-2022 15:10-0500 Promise to Return [facility] 06-27-2022 14:00-0500 Hourly Rounding [facility]an [facility] 06-27-2022 14:00-0500 Promise to Return [facility]an [facility] 06-27-2022 12:30-0500 Blood Pressure Location [facility]an [facility] 06-27-2022 12:30-0500 Body temperature 97.88 [degF] [facility] 06-27-2022 12:30-0500 Diastolic blood pressure 69 mm[Hg] [facility]an [facility] 06-27-2022 12:30-0500 Heart rate 60 /min [facility] 06-27-2022 12:30-0500 Mean blood pressure 96 mm[Hg] [facility]an [facility] 06-27-2022 12:30-0500 Respiratory rate 16 /min [facility] 06-27-2022 12:30-0500 SaO2% (BldA) [Mass fraction] 100 % [facility] 06-27-2022 12:30-0500 Systolic blood pressure 149 mm[Hg] [facility]an [facility] 06-27-2022 08:46-0500 Diastolic blood pressure 71 mm[Hg] [facility]an [facility] 06-27-2022 08:46-0500 Systolic blood pressure 131 mm[Hg] [facility] 06-27-2022 08:43-0500 Heart rate 54 /min [facility] 06-27-2022 08:43-0500 SaO2% (BldA) [Mass fraction] 97 % [facility] 06-27-2022 08:43-0500 Respiratory rate 16 /min [facility] 06-27-2022 08:43-0500 Diastolic blood pressure 71 mm[Hg] [facility]an [facility] 06-27-2022 08:43-0500 Mean blood pressure 91 mm[Hg] [facility] 06-27-2022 08:43-0500 Systolic blood pressure 131 mm[Hg] [facility] 06-27-2022 08:42-0500 Body temperature 97.34 [degF] [facility] 06-27-2022 07:34-0500 SaO2% (BldA) [Mass fraction] 96 % [facility] 06-26-2022 23:38-0500 Blood Pressure Location [facility]an [facility] 06-26-2022 23:38-0500 Body temperature 97.88 [degF] [facility] 06-26-2022 23:38-0500 Heart rate 56 /min [facility] 06-26-2022 23:38-0500 Mean blood pressure 86 mm[Hg] [facility] 06-26-2022 23:38-0500 Respiratory rate 18 /min [facility] 06-26-2022 20:47-0500 gluc 206 mg/dL [facility] 06-26-2022 20:44-0500 Heart rate 95 /min [facility] 06-26-2022 20:09-0500 Mean blood pressure 95 mm[Hg] [facility]an [facility] 06-26-2022 20:09-0500 Body temperature 97.88 [degF] [facility] 06-26-2022 18:12-0500 gluc 240 mg/dL [facility] 06-26-2022 17:12-0500 Mean blood pressure 82 mm[Hg] [facility] 06-26-2022 17:00-0500 Body temperature 98.24 [degF] [facility] 06-26-2022 11:00-0500 Heart rate 66 /min [facility] 06-26-2022 10:15-0500 gluc 210 mg/dL [facility] 06-25-2022 16:00-0500 Mean blood pressure 93 mm[Hg] [facility] 06-24-2022 21:38-0500 Body temperature 98.24 [degF] [facility] 06-23-2022 12:25-0500 Heart rate 75 /min [facility] 06-23-2022 09:35-[address] [facility] 06-23-2022 09:00-0500 Respiratory rate 22 /min [facility] 06-23-2022 08:45-0500 Respiratory rate 11 /min [facility] 06-23-2022 08:00-0500 Respiratory rate 12 /min [facility] 06-23-2022 07:05-[address] [facility] 06-23-2022 07:05-0500 Heart rate 78 /min [facility] 06-01-2022 14:31-0500 Diastolic blood pressure 79 mm[Hg] Dustin Zumbar [facility] 06-01-2022 14:31-0500 Heart rate 67 /min Dustin [facility] 06-01-2022 14:31-0500 Mean blood pressure 96 mm[Hg] Dustin [facility]umbar [facility] 06-01-2022 14:31-0500 Respiratory rate 18 /min Dustin [facility] 06-01-2022 14:31-0500 Systolic blood pressure 129 mm[Hg] Dustin [facility]um[facility] 12-10-2021 00:45-0400 Diastolic blood pressure 83 mm[Hg] [facility]-10-[facility]21 00:45-0400 Heart rate 74 /min [facility] 12-10-2021 00:45-0400 SaO2% (BldA) [Mass fraction] 97 % [facility] 12-10-2021 00:45-0400 Systolic blood pressure 124 mm[Hg] Et3 [facility] 11-09-2021 13:42-0400 Diastolic blood pressure 76 mm[Hg] Dustin [facility]loanumbar [facility] 11-09-2021 13:42-0400 Heart rate 16 /min Dustin [facility] 11-09-2021 13:42-0400 Mean blood pressure 98 mm[Hg] Dustin [facility]um[facility] 11-09-2021 13:42-0400 Respiratory rate 74 /min [facility]in [facility] 11-09-2021 13:42-0400 Systolic blood pressure 141 mm[Hg] Dustin [facility] Encounters Encounter Date Encounter Type Care Provider Facility Start: 08-06-2023 End: 08-07-2023 ambulatory Radha Farias Facility:[facility] Start: 08-06-2023 End: 08-06-2023 Patient encounter procedure Radha Farias [facility] Start: 08-02-2023 End: 08-02-2023 ambulatory LANI Castro ALLSOP Not Available Start: 07-05-2023 End: 07-06-2023 ambulatory Shawn Akkina [place] Start: 07-05-2023 End: 07-05-2023 Patient encounter procedure Shawn Akkina [facility] Start: 06-28-2023 End: 06-28-2023 ambulatory JANA Kurt SOARES Not Available Start: 06-05-2023 End: 06-05-2023 ambulatory CYNDI A DONNAMILLER Not Available Start: 05-24-2023 End: 05-24-2023 ambulatory JANA DOLCE Not Available Start: 05-21-2023 End: 05-22-2023 ambulatory Lani D Allsop Facility:[facility] Start: 05-21-2023 End: 05-21-2023 Patient encounter procedure Radha CobosConnie Jarrett [facility] Start: 05-17-2023 End: 05-17-2023 ambulatory PETTY Foy CELINA Not Available Start: 04-30-2023 End: 04-30-2023 ambulatory LANI Gloria [employer] Not Available Start: 03-14-2023 End: 03-15-2023 ambulatory Esteban Francois Facility[place] Start: 03-02-2023 End: 03-03-2023 ambulatory Mirna Bryant Facility[place] Start: 03-02-2023 End: 03-02-2023 Pain Management [address] [facility] Start: 01-25-2023 End: 06-18-2023 ambulatory Jana R Dolce Facility[place] Start: 01-24-2023 ambulatory MD Dustin Gonzales [facility] ity:[facility] Start: 01-19-2023 End: 01-20-2023 ambulatory Lani Gloria Allsop Facility[place] Start: 01-19-2023 End: 01-19-2023 Pain Management Dustin Gonzales [facility] Start: 01-10-2023 End: 01-11-2023 ambulatory MD Dustin Gonzales Facility:[facility] Start: 01-10-2023 End: 01-10-2023 Pain Management Dustin Gonzales [facility] Start: 01-03-2023 End: 01-04-2023 ambulatory Shawn Bermudez Facility:[facility] Start: 01-03-2023 End: 01-03-2023 Patient encounter procedure Shawn Bermudez [facility] Start: 01-01-2023 End: 01-01-2023 Emergency department patient visit Pantera Wise Facility:[facility] Start: 12-31-2022 End: 12-31-2022 Emergency department patient visit Pantera GrimaldoConnie Wise [facility] Start: 12-13-2022 End: 12-14-2022 ambulatory MD Dustin Gonzales Facility:[facility] Start: 12-13-2022 End: 12-13-2022 Pain Management [address] Gonzales [facility] Start: 12-06-2022 End: 12-07-2022 ambulatory MD Dustin Gonzales Facility[place] Start: 12-06-2022 End: 12-06-2022 Pain Management [address] [facility] Start: 10-26-2022 End: 10-27-2022 ambulatory MD Dustin Gonzales Facility:[facility] Start: 10-26-2022 End: 10-26-2022 Pain Management Dustin Gonzalse [facility] Start: 10-24-2022 End: 10-24-2022 ambulatory Daryl Oliver Other [facility] [employer] Other Start: 10-24-2022 Office outpatient ne w 60 minutes Daryl Oliver [facility] Start: 09-13-2022 End: 09-14-2022 ambulatory Dustin Gonzales Facility:[facility] Start: 09-13-2022 End: 09-13-2022 Patient encounter procedure Dustin Zmonica [facility] Start: 09-02-2022 End: 09-03-2022 ambulatory Verónica X Orzech Facility[place] Start: 09-02-2022 End: 09-03-2022 ambulatory Verónica X Orzech Facility:[facility] Start: 09-02-2022 End: 09-02-2022 Lab Drop off Verónica X Orzech [facility] Start: 09-02-2022 End: 09-02-2022 Patient encounter procedure Verónica X Orzech [facility] Start: 08-31-2022 End: 09-01-2022 ambulatory MD Dustin Gonzales [place]: 06-29-2022 End: 07-13-2022 Evaluation and management of inpatient Delio Gonzales Facility:[facility] Start: 06-29-2022 End: 07-13-2022 Evaluation and management of inpatient MD Lani Méndez Work Phone: [facility] Work Phone: Start: 06-28-2022 End: 06-30-2022 Pre-admission assessment Harjeet YENY [facility] Start: 06-28-2022 End: 06-28-2022 Off-Site [facility] Start: 06-27-2022 End: 06-29-2022 Evaluation and management of inpatient Harjeet YENY [facility] Start: 06-23-2022 End: 06-27-2022 Evaluation and management of inpatient Kimani RUBIO [facility] Start: 06-01-2022 End: 06-01-2022 Pain Management [address] Gonzales [facility] Start: 02-16-2022 End: 02-16-2022 Patient encounter procedure Shawn Bermudez [facility] Start: 12-10-2021 End: 12-12-2021 ambulatory UNKNOWN PROVIDER Facility:[facility] Start: 12-10-2021 End: 12-10-2021 ambulatory [facility] Triage, Treat and Transport Start: 12-10-2021 End: 12-10-2021 Emergency department patient visit [facility] Emergency Triage, Treat and Transport Comment on above: Arrived Start: 11-09-2021 End: 11-09-2021 Pain Management Dustinrayshawn Gonzales [facility] Start: 07-10-2019 End: 07-10-2019 [facility] Procedures Date Procedure Procedure Detail Performing Clinician Start: 01-10-2023 Peripheral neurostim ulator, device (physical object) Dustin Gonzales Comment on above: Explant of SCS inter nal pulse generator Start: 05-17-2021 Antibody screen Comment on above: Performed By: #### T +S #### [facility] [address] [place] [address] Start: 03-09-2021 Implantation of neurostimulator in spine Dustin Gonzales Comment on above: [employer] 75% re lief Start: 09-15-2020 Injection of sacroil iac joint Dustin Gonzales Start: 04-28-2020 Injection of nerve r oot of lumbar spine using fluoroscopic guidance Dustin Gonzales Comment on above: bilateral L3- no rel ief Start: 12-02-2019 Decompression of lum bar spine [employer] Comment on above: Mild procedure pt cagle s not any relief yet Start: 07-10-2019 Dual energy X-ray ph oton absorptiometry Lani Méndez Start: 03-19-2019 Magnetic resonance imaging [employer] Comment on above: MRI W/SEDATION Lumba r Start: 03-13-2019 Arthroscopy of knee Lito mead [employer] Comment on above: left knee meniscal w ork Start: 10-09-2018 Injection of sacroil iac joint using fluoroscopic guidance [employer] Comment on above: bilat SIJI- 40% reli ef x 2 weeks then pain returned Start: 08-07-2018 Epidural injection o f lumbar spine using fluoroscopic guidance [employer] Comment on above: 30% relief 2-3 weeks L2-L3 Start: 04-17-2018 Epidural injection o f lumbar spine using fluoroscopic guidance [employer] Comment on above: L2-3 DL- 30% relief to present Start: 02-20-2018 Injection of sacroil iac joint using fluoroscopic guidance [employer] Comment on above: b/l SJI 0% no relief , increased pain afterwards Start: 11-21-2017 Transforaminal Epidu ral Steriod Injection bilateral L3 10 [employer] Comment on above: 10% relief Start: 11-21-2017 Transforaminal Epidu ral Steriod Injection bilateral L3 11 [employer] Comment on above: 10% relief Start: 09-06-2017 Supartz injection ri ght knee #5 11 [employer] Comment on above: No relief Start: 09-06-2017 Supartz injection ri ght knee #5 12 [employer] Comment on above: No relief Start: 08-02-2017 Supartz injection ri ght knee #4 Dustin Sloanumbar Start: 07-19-2017 Supartz injection ri ght knee #3 12 uDstin [employer] Comment on above: 30% relief Start: 07-19-2017 Supartz injection ri ght knee #3 13 Dustin Zumbar Comment on above: 30% relief Start: 07-11-2017 Radiofrequency ablat ion of medial branch of lumbar nerve using fluoroscopic guidance Dustin [employer] Comment on above: bilateral L2-L5--0% relief Start: 07-05-2017 Injection of knee joint Dustin Sloanumbar Comment on above: Right-0% relief Start: 06-21-2017 Supartz Injection to Right knee 15 Dustin Zumbar Comment on above: right Start: 06-21-2017 Supartz Injection to Right knee 16 Dustin Sloanumbar Comment on above: right Start: 09-27-2016 Injection into facet joint of lumbar spine using fluoroscopic guidance [employer] Comment on above: B/L L3-S1 100% relie f for 8 hours, pain gradually returned Start: 08-09-2016 bilateral lumbar fac et injections l3-s1 17 [employer] Comment on above: bilateral lumbar fac et injection l3-s1, 80% relief for one day, now back to baseline Start: 08-09-2016 bilateral lumbar fac et injections l3-s1 18 [employer] Comment on above: bilateral lumbar fac et injection l3-s1, 80% relief for one day, now back to baseline Augmentation of bladder Rivera oliver [employer] Bilateral Radio freq uency sacroiliac ablation S1-3 18 [employer] Comment on above: No relief Bilateral Radio freq uency sacroiliac ablation S1-3 19 Dustin Gonzales Comment on above: No relief Cataract extraction and insertion of intraocular lens Dustin Gonzales Comment on above: right Cholecystectomy Dustin toscano Deep venous thrombos is (disorder) Dustin Gonzales Comment on above: removal s/p surgery Injection of sacroil iac joint using fluoroscopic guidance Dustin Gonzales Comment on above: bilateral -95% relie f x 2 1/2 weeks. Pt. reports she is back to baseline today. Ligation of fallopian tube Luther Gonzales Liposuction of subcu taneous tissue Dustin Gonzales Supartz right knee 22 Katheryn Gonzales Comment on above: #4- 0% relief Supartz right knee 23 Piperr tony Gonzales Comment on above: #4- 0% relief Plan of Treatment Date Care Activity Detail Author Start: 07-12-2022 [facility] Start: 06-29-2022 [facility] Start: 06-29-2022 Hospital admission [facility] Start: 06-29-2022 Referral to clinical manager call center [facility] Start: 2011 Pneumococcal vaccination Pneumococcal Vaccine(s) (65+ yrs) (1 - PCV) [facility] Start: 2011 Screening for osteoporosis Bone Densitometry [facility] Start: 1996 Measurement of occult blood in single stool specimen FIT [facility] Start: 1996 Screening for malignant neoplasm of breast Mammography [facility] Start: 1996 Screening for malignant neoplasm of colon CRC Screening [facility] Start: 1996 Shingles (RZV) Vaccine (1 of 2) Shingles (RZV) Vaccine (1 of 2) [facility] Start: 1991 Cholesterol [Mass/volume] in Serum or Plasma Cholesterol [facility] Start: 1964 Hepatitis C screening [facility] Start: 1964 Tetanus + diphtheria + acellular pertussis vaccine (product) [facility] Start: 1951 COVID-19 Vaccine (#1) COVID-19 Vaccine (#1) [facility] Start: 1946 Screening for malignant neoplasm of colon Colonoscopy [facility] Patient Education Stroke (DC) [facility] Work Phone: Patient referral [facility] Work Phone: [facility] Immunizations Immunization Date Immunization Notes Care Provider Fa efra 03-27-2022 influenza virus vaccine, unspecified formulation Harjeet SAINI [facility] 06-03-2021 SARS-CoV-2 (COVID-19 ) mRNA BNT-162b2 vax Harjeet SAINI [facility] 05-09-2021 pneumococcal polysaccharide vaccine, 23 valent Harjeet YENY [facility] 11-04-2020 COVID-19, mRNA, LNP- S, PF, 30 mcg/0.3 mL dose; Translations: [Pfizer-BioNTech COVID-19 Vaccine] Dustin Christian [facility] Comment on above: Reason for Medicatio n: Prophylaxis 10-13-2020 COVID-19, mRNA, LNP- S, PF, 30 mcg/0.3 mL dose Dustin Gonzales [facility] Comment on above: Reason for Medicatio n: Prophylaxis 04-23-2019 influenza, high dose seasonal, preservative-free Daryl Oliver [employer] Other 04-04-2018 influenza, high dose seasonal, preservative-free Daryl Oliver [employer] Other 05-01-2017 influenza, high dose seasonal, preservative-free Daryl Oliver [employer] Other 03-06-2016 influenza, injectable,quadrivalent , preservative free, pediatric Daryl Oliver [employer] Other Payers Date Payer Category Payer Self-pay [id number] 2011 Medicare [id number] 2010 Unknown [id number] 1946 Unknown [id number] 2.16. 840.1.210779.3.579.2.732 1946 Unknown [id number] 2.16.84 0.1.097310.3.579.2.1259 1946 Unknown [id number] 2.16.84 0.1.449468.3.579.2.1259 1946 Unknown [id number] 2.16.840 .1.493456.3.579.2.1259 1946 Unknown [id number] 2.16.840 .1.388774.3.579.2.1259 1946 Unknown [id number] 2.16.840 .1.899376.3.579.2.1259 1946 Unknown [id number] 2.16.840 .1.220844.3.579.2.1259 1946 Unknown [id number] 2.16.840 .1.762688.3.579.2.1259 1946 Unknown [id number] 2.16.840. 1.701992.3.579.2.1259 1946 Unknown [id number] 2.16.8 40.1.568914.3.579.2.727 1946 Unknown [id number] 2.16.8 40.1.821967.3.579.2.727 1946 Unknown [id number] 2.16.8 40.1.626400.3.579.2.727 1946 Unknown [id number] 2.16.8 40.1.326259.3.579.2.727 1946 Unknown [id number] 2.16.8 40.1.176131.3.579.2.727 1946 Unknown [id number] 2.16.8 40.1.047542.3.579.2.727 1946 Unknown [id number] 2.16.8 40.1.608207.3.579.2.727 1946 Unknown [id number] 2.16.8 40.1.900754.3.579.2.727 1946 Unknown [id number] 2.16.8 40.1.473962.3.579.2.727 1946 Unknown [id number] 2.16.8 40.1.297208.3.579.2.727 1946 Unknown [id number] 2.16.8 40.1.453417.3.579.2.727 1946 Unknown [id number] 2.16.8 40.1.397986.3.579.2.727 1946 Unknown [id number] 2.16.8 40.1.059449.3.579.2.727 1946 Unknown [id number] 2.16.8 40.1.988084.3.579.2.727 1946 Unknown [id number] 2.16.8 40.1.180480.3.579.2.727 1946 Unknown [id number] 2.16.8 40.1.158722.3.579.2.727 1946 Unknown [id number] 2.16.8 40.1.065651.3.579.2.727 Unknown [id number] 2.16.8 40.1.782467.3.579.2.531 Social History Date Type Detail Facility Tobacco smoking status NHIS Unknown if ever smoked [facility] Start: 1945 Sex Assigned At Female F [facility] Start: 07-27-2016 End: 09-02-2022 Tobacco smoking status Never smoked tobacco (finding) [facility] Sex Assigned At Female [facility] Tobacco smoking status NHIS Tobacco smoking consumption unknown [facility] Start: 1945 Sex Assigned At Not on file M [facility] Tobacco smoking status Never [facility] Care Medical Equipment Procedure Code Equipment Code Equipment Original Text Equi pment Identifier Dates Goals Date Patient Goal Desired Activity /State Functional Status Date Assessment Result Facility 05-21-2023 Functional Status N/A [facility] 03-02-2023 Functional Status N/A [facility] 01-19-2023 Functional Status N/A [facility] 01-10-2023 Functional Status N/A [facility] 12-31-2022 Functional Status N/A [facility] 12-13-2022 Functional Status N/A [facility] 12-06-2022 Functional Status N/A [facility] 10-26-2022 Functional Status N/A [facility] 09-02-2022 Functional Status N/A [facility] 07-13-2022 Functional status Patient is Pro gressing Toward Baseline [facility] Work Phone: 06-23-2022 Functional Status N/A [facility] 06-23-2022 Functional Status [facility] 06-01-2022 Functional Status N/A [facility] Mental Status Date Assessment Result Facility 07-13-2022 Cognitive function Cognitive Sta tus Patient at Baseline [facility] Work Phone: Clinical Notes 12-10-2021 to 05-21-2023 Note Date & Type Note Facility 05-21-2023 Hospital Discharg e instructions Patient Education 05/21/2023 14:10:07 Urinary Tract Infection, Adult Urinary Tract Infection, Adult A urinary tract infection (UTI) is an infection of any part of the urinary tract. The urinary tract includes the kidneys, ureters, bladder, and urethra. These organs make, store, and get rid of urine in the body. An upper UTI affects the ureters and kidneys. A lower UTI affects the bladder and urethra. What are the causes? Most urinary tract infections are caused by bacteria in your genital area around your urethra, where urine leaves your body. These bacteria grow and cause inflammation of your urinary tract. What increases the risk? You are more likely to develop this condition if: You have a urinary catheter that stays in place. You are not able to control when you urinate or have a bowel movement (incontinence). You are female and you: ?Use a spermicide or diaphragm for control. ?Have low estrogen levels. ?Are . You have certain genes that increase your risk. You are sexually active. You take antibiotic medicines. You have a condition that causes your flow of urine to slow down, such as: ?An enlarged prostate, if you are male. ?Blockage in your urethra. ?A kidney stone. ?A nerve condition that affects your bladder control (neurogenic bladder). ?Not getting enough to drink, or not urinating often. You have certain medical conditions, such as: ?Diabetes. ?A weak disease-fighting system (immunesystem). ?Sickle cell disease. ?Gout. ?Spinal cord injury. What are the signs or symptoms? Symptoms of this condition include: Needing to urinate right away (urgency). Frequent urination. This may include small amounts of urine each time you urinate. Pain or burning with urination. Blood in the urine. Urine that smells bad or unusual. Trouble urinating. Cloudy urine. Vaginal discharge, if you are female. Pain in the abdomen or the lower back. You may also have: Vomiting or a decreased appetite. Confusion. Irritability or tiredness. A fever or chills. Diarrhea. The first symptom in older adults may be confusion. In some cases, they may not have any symptoms until the infection has worsened. How is this diagnosed? This condition is diagnosed based on your medical history and a physical exam. You may also have other tests, including: Urine tests. Blood tests. Tests for STIs (sexually transmitted infections). If you have had more than one UTI, a cystoscopy or imaging studies may be done to determine the cause of the infections. How is this treated? Treatment for this condition includes: Antibiotic medicine. Vosx-vkj-tzeuupv medicines to treat discomfort. Drinking enough water to stay hydrated. If you have frequent infections or have other conditions such as a kidney stone, you may need to see a health care provider who specializes in the urinary tract (urologist). In rare cases, urinary tract infections can cause sepsis. Sepsis is a life-threatening condition that occurs when the body responds to an infection. Sepsis is treated in the hospital with IV antibiotics, fluids, and other medicines. Follow these instructions at home: Medicines Take tkdv-dfb-icnwacg and prescription medicines only as told by your health care provider. If you were prescribed an antibiotic medicine, take it as told by your health care provider. Do not stop using the antibiotic even if you start to feel better. General instructions Make sure you: ?Empty your bladder often and completely. Do not hold urine for long periods of time. ?Empty your bladder after sex. ?Wipe from front to back after urinating or having a bowel movement if you are female. Use each tissue only one time when you wipe. Drink enough fluid to keep your urine pale yellow. Keep all follow-up visits. This is important. Contact a health care provider if: Your symptoms do not get better after 1 2 days. Your symptoms go away and then return. Get help right away if: You have severe pain in your back or your lower abdomen. You have a fever or chills. You have nausea or vomiting. Summary A urinary tract infection (UTI) is an infection of any part of the urinary tract, which includes the kidneys, ureters, bladder, and urethra. Most urinary tract infections are caused by bacteria in your genital area. Treatment for this condition often includes antibiotic medicines. If you were prescribed an antibiotic medicine, take it as told by your health care provider. Do not stop using the antibiotic even if you start to feel better. Keep all follow-up visits. This is important. This information is not intended to replace advice given to you by your health care provider. Make sure you discuss any questions you have with your health care provider. Document Revised: 01/14/2021 Document Reviewed: 01/14/2021 [employer] Patient Education 2022 [employer]. Follow Up Care 01/24/2023 13:42:15 With:Jarrett VELASQUEZ, ZEB Cruz, URO Address: When: Unknown [facility] 03-15-2023 Note [id number]:127 [facility] 03-14-2023 Note Diagnosis: M46.1, M5 3.3 Procedure: Diagnostic and therapeutic sacroiliac Joint injections under fluoroscopic guidance Anesthesia: Local Complications: none After informed consent was obtained, the patient was brought back to the procedure room and placed in the prone position. Back areas prepped and draped in the usual sterile fashion using fluoroscopic guidance, the skin and subcutaneous tissues overlying the needle trajectory over the lower aspect of sacroiliac joint were anesthetized with 2% lidocaine. The 22-gauge Quincke needles were then introduced in the lower aspect of the sacroiliac joint. Injection of contrast under fluoroscopy revealed appropriate intra-articular spread. Thereafter, 3 mL of 0.5% bupivacaine with 40 mg of methylprednisolone was injected into each sacroiliac joint. The needle was then removed. The patient tolerated procedure well. Patient was then transferred to the recovery room in stable condition. Follow-up: The patient will update us on the response to this procedure, and agrees to continue currently prescribed/recommended therapies. [facility] Comment on above: Result Comment: Elec tronically Signed By: Esteban Francois DO\.terry\Date and Time Signed: 03/14/23 14:01 EDT 03-02-2023 Evaluation + Plan note Extrac marietta from: Title:Pain Managment Follow up Author:Mirna Cisse Date:03/02/23 Impression and Plan Patient is a 77-year-old female with a past medical history significant for sacroiliitis and chronic low back pain. She states that since having the stimulator removed things have overall been fairly stable. She does not have any increase of symptoms but unfortunate, still has bilateral buttock pain. On physical examination this appears to be related to her sacroiliac joints. We reviewed imaging. I recommended to patient bilateral sacroiliac joint injections for both diagnostic and therapeutic purposes. Procedure was discussed. Risk and benefits were discussed. Patient is agreeable. Should be noted that she has previously failed all other reasonable conservative treatments. Therapy does not help. Anti-inflammatory medication did not help. She uses gabapentin with some improvement not quite enough. She tolerates this well. OARRS reviewed. She is requesting a refill. This will be sent to her pharmacy. ODSP: 44% Future Appointments Appointment Date:03/06/2023 12:00:00 PM Scheduled Provider: Location:.OCCUPATIONAL Appointment Type:OT Lymphedema (FT) Appointment Date:03/08/2023 03:00:00 PM Scheduled Provider: Location:.OCCUPATIONAL Appointment Type:OT Lymphedema (FT) Appointment Date:03/13/2023 01:45:00 PM Scheduled Provider: Location:.OCCUPATIONAL Appointment Type:OT Lymphedema (FT) Appointment Date:03/15/2023 01:00:00 PM Scheduled Provider: Location:.OCCUPATIONAL Appointment Type:OT Lymphedema (FT) Appointment Date:03/20/2023 12:00:00 PM Scheduled Provider: Location:.OCCUPATIONAL Appointment Type:OT Lymphedema (FT) Appointment Date:03/27/2023 12:00:00 PM Scheduled Provider: Location:.OCCUPATIONAL Appointment Type:OT Lymphedema (FT) Appointment Date:03/30/2023 08:30:00 AM Scheduled Provider: Location:.OCCUPATIONAL Appointment Type:OT Lymphedema (FT) Appointment Date:04/03/2023 01:30:00 PM Scheduled Provider: Location:.OCCUPATIONAL Appointment Type:OT Lymphedema Re-Eval (FT) Appointment Date:05/21/2023 01:15:00 PM Scheduled Provider:Radha Farias MD Location:[facility] Appointment Type:URO New Patient [facility]08-04-2023 Evaluation + Plan noteExtracted from: Title:Pain Managment Follow up Author:Mirna Cisse Date:01/19/23 Impression and Plan Patient is a 77-year-old female with a past medical history for lumbosacral neuritis, sacroiliitis, chronic lower back pain, and recent explant of her spinal cord stimulator battery. She has a paddle lead still in place. At this time, she still cannot have an MRI. She is aware of this. She feels that things are overall going fairly well. She is on gabapentin and she states that she may need injections in the future but at this time, she wants to give herself some continued recovery time and I feel that this is very appropriate. She is going to follow-up in 2 to 4 weeks once again for wound management. She will call sooner if necessary. Wound care was further discussed. How to take care of it was discussed. Restrictions were discussed. VEENA score: 53% Future Appointments Appointment Date:01/25/2023 02:00:00 PM Scheduled Provider: Location:FT.OCCUPATIONAL Appointment Type:OT Lymphedema Eval (FT) Appointment Date:03/02/2023 11:15:00 AM Scheduled Provider:Mirna Bryant PA-C Location:FT.Pain Mgmt [place] Appointment Type:Pain Management - Follow Up (FT) [facility]07-26-2023 Evaluation + Plan noteExtracted from: Title:ANES Post-operative Note - MAC Author:Yong Ugarte Jr., DO Date:01/10/23 Plan Transfer/Discharge: Transfer/Discharge Discharge when meets criteria. Extracted from: Title:Clinical Document Author:Katheryn Gonzales MD Date:01/10/23 Procedure: Explantation of a spinal cord stimulator internal pulse generator under fluoroscopic guidance Diagnosis: Lumbosacral radiculopathy/spinal cord stimulator dysfunction Antibiotics: 2 g Ancef IV Anesthesia: MAC Complications: None After informed consent was obtained the patient was brought to the OR and placed in the prone position. The area in question was prepped and draped in sterile fashion. An AP fluoroscopic view of the right buttock was obtained and the internal pulse generator was visualized. After 3 mL of lidocaine 2% was injected into the skin a 5 cm transverse incision was made over the previous scar and was dissected down until the pocket was breached. The generator was freed from the pocket. The leads were loosened with a hex wrench and the generator was removed from the field. An AP fluoroscopic view confirmed removal of the entire generator. The leads were then placed back in the upper portion of the pocket and the inferior portion was collapsed with 3-0 Vicryl sutures. The wound was then copiously irrigated and was closed with interrupted 3-0 Vicryl sutures for the fascia followed by a subcuticular 4-0 Monocryl stitch for the skin. A sterile dressing was placed and the patient was awoken from anesthesia and transferred to the recovery room in good condition. Extracted from: Title:ANES Pre-operative Note - Pain Mgt Author: Yong Guevara Jr., DO Date:01/10/23 Plan [place] [employer] (ASA) physical status classification: Class III. Future Appointments Appointment Date:01/19/2023 09:15:00 AM Scheduled Provider:Mirna Bryant PA-C Location:.[facility] Appointment Type:Pain Management - Follow Up (FT) [facility]07-26-2023 Note [id number]:127[facility] 01-10-2023 NoteProcedure: Explantation of a spinal cord stimulator internal pulse generator under fluoroscopic guidance Diagnosis: Lumbosacral radiculopathy/spinal cord stimulator dysfunction Antibiotics: 2 g Ancef IV Anesthesia: MAC Complications: None After informed consent was obtained the patient was brought to the OR and placed in the prone position. The area in question was prepped and draped in sterile fashion. An AP fluoroscopic view of the right buttock was obtained and the internal pulse generator was visualized. After 3 mL of lidocaine 2% was injected into the skin a 5 cm transverse incision was made over the previous scar and was dissected down until the pocket was breached. The generator was freed from the pocket. The leads were loosened with a hex wrench and the generator was removed from the field. An AP fluoroscopic view confirmed removal of the entire generator. The leads were then placed back in the upper portion of the pocket and the inferior portion was collapsed with 3-0 Vicryl sutures. The wound was then copiously irrigated and was closed with interrupted 3-0 Vicryl sutures for the fascia followed by a subcuticular 4-0 Monocryl stitch for the skin. A sterile dressing was placed and the patient was awoken from anesthesia and transferred to the recovery room in good condition.[facility] Comment on above:Result Comment: Electronically Signed By: Aparna Gonzales MD.terry\Date and Time Signed: 01/10/23 09:21 [id number] Hospital Discharge instructions Patient Education 12/31/2022 23:40:20 Urinary Tract Infection, Adult Urinary Tract Infection, Adult A urinary tract infection (UTI) is an infection of any part of the urinary tract. The urinary tractincludes the kidneys, ureters, bladder, and urethra. These organs make, store, and get rid of urinein the body. An upper UTI affects the ureters and kidneys. A lower UTI affects the bladder and urethra. What are the causes? Most urinary tract infections are caused by bacteria in your genital area around your urethra, where urine leaves your body. These bacteria grow and cause inflammation of your urinary tract. What increases the risk? You are more likely to develop this condition if: You have a urinary catheter that stays in place. You are not able to control when you urinate or have a bowel movement (incontinence). You are female and you: ?Use a spermicide or diaphragm for control. ?Have low estrogen levels. ?Are . You have certain genes that increase your risk. You are sexually active. You take antibiotic medicines. You have a condition that causes your flow of urine to slow down, such as: ?An enlarged prostate, if you are male. ?Blockage in your urethra. ?A kidney stone. ?A nerve condition that affects your bladder control (neurogenic bladder). ?Not getting enough to drink, or not urinating often. You have certain medical conditions, such as: ?Diabetes. ?A weak disease-fighting system (immunesystem). ?Sickle cell disease. ?Gout. ?Spinal cord injury. What are the signs or symptoms? Symptoms of this condition include: Needing to urinate right away (urgency). Frequent urination. This may include small amounts of urine each time you urinate. Pain or burning with urination. Blood in the urine. Urine that smells bad or unusual. Trouble urinating. Cloudy urine. Vaginal discharge, if you are female. Pain in the abdomen or the lower back. You may also have: Vomiting or a decreased appetite. Confusion. Irritability or tiredness. A fever or chills. Diarrhea. The first symptom in older adults may be confusion. In some cases, they may not have any symptoms until the infection has worsened. How is this diagnosed? This condition is diagnosed based on your medical history and a physical exam. You may also have other tests, including: Urine tests. Blood tests. Tests for STIs (sexually transmitted infections). If you have had more than one UTI, a cystoscopy or imaging studies may be done to determine the cause of the infections. How is this treated? Treatment for this condition includes: Antibiotic medicine. Risb-ami-hikpecl medicines to treat discomfort. Drinking enough water to stay hydrated. If you have frequent infections or have other conditions such as a kidney stone, you may need to see a health care provider who specializes in the urinary tract (urologist). In rare cases, urinary tract infections can cause sepsis. Sepsis is a life- threatening condition that occurs when the body responds to an infection. Sepsis is treated in the hospital with IV antibiotics, fluids, and other medicines. Follow these instructions at home: Medicines Take dskp-esm-zwrktft and prescription medicines only as told by your health care provider. If you were prescribed an antibiotic medicine, take it as told by your health care provider. Do notstop using the antibiotic even if you start to feel better. General instructions Make sure you: ?Empty your bladder often and completely. Do not hold urine for long periods of time. ?Empty your bladder after sex. ?Wipe from front to back after urinating or having a bowel movement if you are female. Use each tissue only one time when you wipe. Drink enough fluid to keep your urine pale yellow. Keep all follow-up visits. This is important. Contact a health care provider if: Your symptoms do not get better after 1 2 days. Your symptoms go away and then return. Get help right away if: You have severe pain in your back or your lower abdomen. You have a fever or chills. You have nausea or vomiting. Summary A urinary tract infection (UTI) is an infection of any part of the urinary tract, which includes the kidneys, ureters, bladder, and urethra. Most urinary tract infections are caused by bacteria in your genital area. Treatment for this condition often includes antibiotic medicines. If you were prescribed an antibiotic medicine, take it as told by your health care provider. Do notstop using the antibiotic even if you start to feel better. Keep all follow-up visits. This is important. This information is not intended to replace advice given to you by your health care provider. Make sure you discuss any questions you have with your health care provider. Document Revised: 01/14/2021 Document Reviewed: 01/14/2021 [employer] Patient Education 2022 [employer]. Follow Up Care 12/31/2022 22:33:28 With:Lani Méndez Address: [address] [place] [address] [place] [phone]- Business (1) When:Within 3 Day([address]) [facility]07-16-2023 Evaluation + Plan noteExtracted from: Title:ED Note Author:Pantera Wise DO Date :12/31/22 Acute UTI (N39.0: Urinary tr act infection, site not specified) Orders: ciprofloxacin, 500 mg = 1 tab(s), Oral, q12hr, X 7 day(s), # 14 tab(s), Refills(s) 0, Pharmacy: [facility], 162, cm, 12/31/22 22:40:00 EDT, Height/Length Dosing, 131, kg, 12/31/22 22:40:00 EDT, Weight Dosing ciprofloxacin, 500 mg = 1 tab(s), Tab, Oral, Once, Stop date 12/31/22 23:18:00 EDT, STAT, Start date 12/31/22 23:18:00 EDT, 12/31/22 23:18:00 EDT phenazopyridine, 100 mg = 1 tab(s), Oral, TID, X 2 day(s), # 6 tab(s), Refills(s) 0, Pharmacy: [facility], 162, cm, 12/31/22 22:40:00 EDT, Height/Length Dosing, 131, kg, 12/31/22 22:40:00 EDT, Weight Dosing phenazopyridine, 100 mg = 1 tab(s), Tab, Oral, Once, Stop date 12/31/22 23:18:00 EDT, STAT, Start date 12/31/22 23:18:00 EDT, 12/31/22 23:18:00 EDT UA With Cult Reflex Urine Culture Future Appointments Appointment Date:01/10/2023 08:00:00 AM Scheduled Provider: Location:[facility] Management Appointment Type:Surgery FT Appointment Date:01/19/2023 09:15:00 AM Scheduled Provider:Mirna Bryant PA-C Location:FT.[facility] Appointment Type:Pain Management - Follow Up (FT) Diagnostic Tests Pending * Urine Culture 12/31/22 [facility]06-28-2023 Evaluation + Plan noteExtracted from: Title:Mauricio Villaseñor PRE Author:Braden Martínez DO Date:12/13/22 Plan [place] [employer] (ASA) physical status classification: Class III. Anesthetic Preoperative Plan: Anesthesia General, and Monitored anethesia care. Future Appointments Appointment Date:01/19/2023 09:15:00 AM Scheduled Provider:Mirna Bryant PA-C Location:FT.[facility] Appointment Type:Pain Management - Follow Up (FT) [facility]05-11-2023 Evaluation + Plan noteExtracted from: Title:Clinical Document Author:Katheryn Gonzales MD Date:10/26/22 Chief complaint: Low back an d leg pain History of present illness: This is a 77-year-old female here for a chief complaint of low back and bilateral leg pain. The patient rates the pain as a 9 out of 10. She reports the pain is constant but worse standing or walking. In addition to the back pain she also has pain in both knees. She had recent injections with Dr. Patrick. She does not want to have surgery for either issue if she can help it. Since her last visit she had a consultation with Dr. Oliver. They discussed removing her stimulator but after Dr. Oliver discussed the potential risk of a dural tear they decided to leave the lead in place and just remove the battery since that is what really bothers her. Since I can remove the battery she would like to have it done here. She is still using gabapentin which has been beneficial to an extent. She denies side effects. The patient denies additional neurologic symptoms or issues with bladder or bowel control. The patient's past medical, surgical, and social history along with medications and allergies were reviewed. Review of systems was done on 10 systems Physical examination: General: Pleasant white female in no acute distress. Patient appears well- nourished. Vital signs stable Head exam: Head is normocephalic and external ears are normal Neck exam: No tenderness Cardiovascular exam: No signs of poor perfusion. Peripheral edema in both lower extremities Respiratory exam: Breathing is unlabored and there is no wheezing present Abdomen exam: Abdomen soft and nondistended Back exam: Bilateral lumbar paraspinal tenderness. Generator site in the right flank is unremarkable Musculoskeletal exam: Strength 5 out of 5 with the exception of 4-5 dorsiflexion of both feet and both great toes. Muscle tone is normal. Neurologic exam: Sensation intact. Reflexes diminished but symmetric. Psych exam: Affect is appropriate. 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 We reviewed her x-rays. She has multilevel spondylosis and disc disease particularly at L2-L3. Oswestry disability index score was 58% OARRS report was reviewed and was appropriate Plan: We discussed options. Since the generator is causing pain and she is not using the stimulator we will set her up for an IPG explant. We discussed the potential risks and benefits of this plan and the patient was in agreement to proceed. I will see the patient for follow-up 1 week after surgery for repeat evaluation. She will continue the gabapentin and her home exercises in the interim. [facility]05-09-2023 Evaluation note* Encounter Date Diagnosis Assessment Notes Treatment Notes Treatment Clinical Notes October, Other chronic pain (ICD-10 - G89.29) October, Low back pain, unspecified (ICD-10 - M54.50) October, Inflammation of both sacroiliac joints (ICD-10 - M46.1) October, Failure of spinal cord stimulator, initial encounter (ICD-10 - T85.192A) I independently reviewed the MRI of the lumbar spine that shows a moderate stenosis at L2-3 this is 3 years old. Clinically the patient has no radicular or claudicatory leg pain I am not certain the stenosis is causing her problem her spinal cord stimulator does not work. She cannot have an MRI and is considering taking it out I discussed the risk and benefits of the surgical take-out and she at this point does not want to accept that risk. October, Spinal stenosis of lumbar region, unspecified whether neurogenic claudication present (ICD-10 - M48.061) [employer] Other 03-19-2023 NoteHOSPITAL REGULATIONS: All Positive and Important Negative Findings Shall Be Recorded Date of Consultation: 08/31/2022 Attending Physician: Lani Méndez D.O. Consulting Physician: Dustin Gonzales M.D. CHIEF COMPLAINT: Low back and hip pain. HISTORY OF PRESENT ILLNESS: This is a 77 year old female seen for a chief complaint of low back andhip pain. She rates her symptoms as an 8-9/10. She states the pain is constant and starts in her lower back and radiates into the sacrum then down into the proximal legs. The pain is constant but worse with standing. She was hospitalized a few months ago for what was assumed to be a stroke. She hadsome deficits but fortunately has recovered. During her hospitalization her team wanted to get a magnetic resonance imaging however they were unable to get her stimulator to fully charge so it ended up being delayed. When that was finally resolved, so much time had passed that they never ended up getting it in the first place. She reports that the situation was unacceptable for a number of reasons and she would like to have her stimulator removed. She has not used it. She is still on pain medications through her primary care doctor but would also like to discuss what could be done for her back pain again. She did recently get knee injections from her orthopedist and reports those are helpful. She does not want to have knee replacements if she can help it. She states the right knee is worse than the left. She states the back pain is constant but worse with activity. She has been through therapy with lack of benefit. She does not want to have an actual back surgery other than she wants t he stimulator removed. PAST MEDICAL, PSYCHOSOCIAL, FAMILY HISTORY, ALONG WITH MEDICATIONS AND ALLERGIES is available and was reviewed. REVIEW OF SYSTEMS:Done on [employer] system. PHYSICAL EXAMINATION: General: She is a pleasant white female. Vital signs: Vital signs including blood pressure, heart rate and respirations are stable. Head: Head is normocephalic and external ears are normal. Neck: Neck is supple with no lesions. Cardiovascular: No signs of poor perfusion. No peripheral edema. Lungs: Breathing is unlabored. There is no wheezing present. Abdomen: Abdomen is soft and non-distended. Back: There is bilateral lower lumbar and sacroiliac tenderness. She has a positive Fabio's sign,Gaenslen's test and thigh thrust test bilaterally. She has a palpable IPG in the right lower back and buttock. The superior portion is more superficial to the skin than the inferior portion which might be why there was difficulty with charging. Musculoskeletal: Strength is 5/5. Muscle tone is normal. Neurologic: Sensation is intact throughout. Her reflexes are diminished but symmetric. Psychiatric: Affect is appropriate and she is alert and oriented. ASSESSMENT:This is a 77 year old female seen for a chief complaint of bilateral lower back and hip pain. Her symptoms are mostly axial and below the level of L5 and are consistent with sacroiliitis. I reviewed her most recent imaging which showed degenerative changes in the sacroiliac joints. I reviewed an [place] [employer] report on her which is appropriate. Her VEENA was 40. PLAN: I addressed options with her and since she has a paddle lead I will refer her for a neurosurgery evaluation to see if it can be removed. I will go ahead and order x-rays of her thoracic and lumbosacral spine in preparation for this. With regard to her pain issue she has evidence of sacroiliitis and since she has not had benefit from over six weeks of conservative management she would be an a ppropriate candidate for a trial of bilateral sacroiliac joints. I advised her that if she wants toget the stimulator out sooner rather than later then I would probably go for the surgical consultation prior to doing the injection just on the off chance that they might want to delay surgery if shedoes get an injection of cortisone. I discussed the pros and cons of this approach with her and her daughter and they were in agreement. She will give us a call and let us know the outcome of her consult and we will go from there. Over 30 minutes was spent caring for the patient in total. Kris Awad Dictated: 08/31/2022 [id number] Transcribed: 09/01/2022 cc:Vianey Monsivais [facility] InstituteComment on above:Result Comment: Electronically Signed By: Christian VELASQUEZ, Dustin\.br\Date and Time Signed: 09/03/22 17:02 [id number] Hospital Discharge instructions Patient Education 09/02/2022 12:43:33 Antibiotic Medicine, Adult Antibiotic Medicine, Adult Antibiotic medicines are used to treat infections caused by bacteria, such as strep throat and urinary tract infection (UTI). Antibiotic medicines will not work for viral illnesses, such as colds or the flu (influenza). They work by killing the bacteria that is making you sick. Antibiotics can alsohave serious side effects. It is important that you take antibiotic medicines safely and only when needed. When do I need to take antibiotics? Antibiotics are medicines that treat bacterial infections. You may need antibiotics for: UTI. Strep throat. Meningitis. This infection affects the spinal cord and brain. Bacterial sinusitis. Serious lung infection. You may start antibiotics while your health care provider waits for test results to come back. Common tests may include throat, urine, blood, or mucus culture. Your health care provider may change orstop the antibiotic depending on your test results. When are antibiotics not needed? You do not need antibiotics for most common illnesses. These illnesses may be caused by a virus, not a bacteria. You do not need antibiotics for: The common cold. Influenza. Sore throat. Discolored mucus. Bronchitis. Antibiotics are not always needed for all bacterial infections. Many of these infections clear up without antibiotic treatment. Do not ask for or take antibiotics when they are not necessary. How long should I take the antibiotic? You must take the entire prescription. Continue to take your antibiotic for as long as told by yourhealth care provider. Do not stop taking it even if you start to feel better. If you stop taking ittoo soon: You may start to feel sick again. Your infection may become harder to treat. Complications may develop. Each course of antibiotics needs a different amount of time to work. Some antibiotic courses last only a few days. Some last about a week to 10 days. In some cases, you may need to take antibiotics for a few weeks to completely treat the infection. What if I miss a dose? Try not to miss any doses of medicine. If you miss a dose, call your health care provider or pharmacist for advice. Sometimes it is okay to take the missed dose as soon as possible. What are the risks of taking antibiotics? Most antibiotics can cause an infection called Clostridioides difficile (C. difficile or C. diff), which causes severe diarrhea. This infection happens when the antibiotics kill the healthy bacteria in your intestines. This allows C. diff to grow. The infection needs to be treated right away. Let your health care provider know if: You have diarrhea while taking an antibiotic. You have diarrhea after you stop taking an antibiotic. C. diff infection can start weeks after stopping the antibiotic. Taking an antibiotic also puts you at risk for getting a bacteria that does not respond to medicine(antibiotic-resistant infection) in the future. Antibiotics can cause bacteria to change so that ifthe antibiotic is taken again, the medicine is not able to kill the bacteria. These infections can be more serious and, in some cases, life-threatening. Do antibiotics affect control? control pills may not work while you are on antibiotics. If you are taking control pills, continue taking them as usual and use a second form of control, such as a condom, to avoid unwanted . Continue using the second form of control until your health care provider says you can stop. What else should I know about taking antibiotics? It is important for you to take antibiotics exactly as told. Make sure that you: Take the entire course of antibiotic that was prescribed. Do not stop taking your antibiotics even if your symptoms improve. Take the correct amount of medicine each day. Ask your health care provider: ?How long to wait in between doses. ?If the antibiotic should be taken with food. ?If there are any foods, drinks, or medicines that you should avoid while taking the antibiotics. ?If there are any side effects you should be aware of. Only use the antibiotics prescribed for you by your health care provider. Do not use antibiotics prescribed for someone else. Drink a large glass of water along with the antibiotics. Ask the pharmacist for a syringe, cup, or spoon that properly measures the antibiotics. Throw away any leftover medicine. Contact a health care provider if: Your symptoms get worse. You have new joint pain or muscle aches that begin after starting the antibiotic. When should I seek immediate medical care? You have signs of a serious allergic reaction to antibiotics. If you have signs of a severe allergic reaction, stop taking the antibiotic right away. Signs may include: ?Hives, which are raised, itchy, red bumps on the skin. ?Skin rash. ?Trouble breathing. ?A wheezing sound when you breathe. ?Swelling anywhere on your body. ?Feeling dizzy. ?Vomiting. Your urine turns dark or becomes blood-colored. Your skin turns yellow. You bruise or bleed easily. You have severe diarrhea and abdominal cramps. You have a severe headache. Summary Antibiotic medicines are used to treat infections caused by bacteria, such as strep throat and UTIs. It is important that you take antibiotic medicines only when needed. Your health care provider may change or stop the antibiotic depending on your test results. Most antibiotics can cause an infection called Clostridioides difficile (C. difficile or C. diff), which causes severe diarrhea. Let your health care provider know if you develop diarrhea while taking an antibiotic. Take the entire course of antibiotic that was prescribed. This information is not intended to replace advice given to you by your health care provider. Make sure you discuss any questions you have with your health care provider. Document Released: 02/14/2005 Document Revised: 12/03/2018 Document Reviewed: 06/05/2017 [employer] Patient Education 2020 [employer]. 09/02/2022 12:43:31 Urinary Tract Infection, Adult Urinary Tract Infection, Adult A urinary tract infection (UTI) is an infection of any part of the urinary tract. The urinary tractincludes the kidneys, ureters, bladder, and urethra. These organs make, store, and get rid of urinein the body. Your health care provider may use other names to describe the infection. An upper UTI affects the ureters and kidneys (pyelonephritis). A lower UTI affects the bladder (cystitis) and urethra (urethritis). What are the causes? Most urinary tract infections are caused by bacteria in your genital area, around the entrance to your urinary tract (urethra). These bacteria grow and cause inflammation of your urinary tract. What increases the risk? You are more likely to develop this condition if: You have a urinary catheter that stays in place (indwelling). You are not able to control when you urinate or have a bowel movement (you have incontinence). You are female and you: ?Use a spermicide or diaphragm for control. ?Have low estrogen levels. ?Are . You have certain genes that increase your risk (genetics). You are sexually active. You take antibiotic medicines. You have a condition that causes your flow of urine to slow down, such as: ?An enlarged prostate, if you are male. ?Blockage in your urethra (stricture). ?A kidney stone. ?A nerve condition that affects your bladder control (neurogenic bladder). ?Not getting enough to drink, or not urinating often. You have certain medical conditions, such as: ?Diabetes. ?A weak disease-fighting system (immunesystem). ?Sickle cell disease. ?Gout. ?Spinal cord injury. What are the signs or symptoms? Symptoms of this condition include: Needing to urinate right away (urgently). Frequent urination or passing small amounts of urine frequently. Pain or burning with urination. Blood in the urine. Urine that smells bad or unusual. Trouble urinating. Cloudy urine. Vaginal discharge, if you are female. Pain in the abdomen or the lower back. You may also have: Vomiting or a decreased appetite. Confusion. Irritability or tiredness. A fever. Diarrhea. The first symptom in older adults may be confusion. In some cases, they may not have any symptoms until the infection has worsened. How is this diagnosed? This condition is diagnosed based on your medical history and a physical exam. You may also have other tests, including: Urine tests. Blood tests. Tests for sexually transmitted infections (STIs). If you have had more than one UTI, a cystoscopy or imaging studies may be done to determine the cause of the infections. How is this treated? Treatment for this condition includes: Antibiotic medicine. Gmku-yql-lkebesy medicines to treat discomfort. Drinking enough water to stay hydrated. If you have frequent infections or have other conditions such as a kidney stone, you may need to see a health care provider who specializes in the urinary tract (urologist). In rare cases, urinary tract infections can cause sepsis. Sepsis is a life- threatening condition that occurs when the body responds to an infection. Sepsis is treated in the hospital with IV antibiotics, fluids, and other medicines. Follow these instructions at home: Medicines Take wozy-ykw-ijynusc and prescription medicines only as told by your health care provider. If you were prescribed an antibiotic medicine, take it as told by your health care provider. Do notstop using the antibiotic even if you start to feel better. General instructions Make sure you: ?Empty your bladder often and completely. Do not hold urine for long periods of time. ?Empty your bladder after sex. ?Wipe from front to back after a bowel movement if you are female. Use each tissue one time when you wipe. Drink enough fluid to keep your urine pale yellow. Keep all follow-up visits as told by your health care provider. This is important. Contact a health care provider if: Your symptoms do not get better after 1 2 days. Your symptoms go away and then return. Get help right away if you have: Severe pain in your back or your lower abdomen. A fever. Nausea or vomiting. Summary A urinary tract infection (UTI) is an infection of any part of the urinary tract, which includes the kidneys, ureters, bladder, and urethra. Most urinary tract infections are caused by bacteria in your genital area, around the entrance to your urinary tract (urethra). Treatment for this condition often includes antibiotic medicines. If you were prescribed an antibiotic medicine, take it as told by your health care provider. Do notstop using the antibiotic even if you start to feel better. Keep all follow-up visits as told by your health care provider. This is important. This information is not intended to replace advice given to you by your health care provider. Make sure you discuss any questions you have with your health care provider. Document Released: 03/14/2006 Document Revised: 05/22/2019 Document Reviewed: 12/12/2018 [employer] Patient Education 2020 [employer]. 09/02/2022 12:43:30 BMI for Adults BMI for Adults Body mass index (BMI) is a number that is calculated from a person's weight and height. BMI may help to estimate how much of a person's weight is composed of fat. BMI can help identify those who may be at higher risk for certain medical problems. How is BMI used with adults? BMI is used as a screening tool to identify possible weight problems. It is used to check whether aperson is obese, overweight, healthy weight, or underweight. How is BMI calculated? BMI measures your weight and compares it to your height. This can be done either in Portuguese ([place] or metric measurements. Note that charts are available to help you find your BMI quickly and easily without having to do these calculations yourself. To calculate your BMI in Portuguese ([place] measurements, your health care provider will: 1.Measure your weight in pounds (lb). 2.Multiply the number of pounds by 703. For example, for a person who weighs 180 lb, multiply that number by 703, which equals 126,540. 3.Measure your height in inches (in). Then multiply that number by itself to get a measurement called inches squared. For example, for a person who is 70 in tall, the inches squared measurement is 70 in x 70 in, which equals 4900 inches squared. 4.Divide the total from Step 2 (number of lb x 703) by the total from Step 3 (inches squared): 126,540 4900 = 25.8. This is your BMI. To calculate your BMI in metric measurements, your health care provider will: 1.Measure your weight in kilograms (kg). 2.Measure your height in meters (m). Then multiply that number by itself to get a measurement called meters squared. For example, for a person who is 1.75 m tall, the meters squared measurement is 1.75 m x 1.75 m, which is equal to 3.1 meters squared. 3.Divide the number of kilograms (your weight) by the meters squared number. In this example: 70 3.1 = 22.6. This is your BMI. How is BMI interpreted? To interpret your results, your health care provider will use BMI charts to identify whether you are underweight, normal weight, overweight, or obese. The following guidelines will be used: Underweight: BMI less than 18.5. Normal weight: BMI between 18.5 and 24.9. Overweight: BMI between 25 and 29.9. Obese: BMI of 30 and above. Please note: Weight includes both fat and muscle, so someone with a muscular build, such as an athlete, may havea BMI that is higher than 24.9. In cases like these, BMI is not an accurate measure of body fat. To determine if excess body fat is the cause of a BMI of 25 or higher, further assessments may needto be done by a health care provider. BMI is usually interpreted in the same way for men and women. Why is BMI a useful tool? BMI is useful in two ways: Identifying a weight problem that may be related to a medical condition, or that may increase the risk for medical problems. Promoting lifestyle and diet changes in order to reach a healthy weight. Summary Body mass index (BMI) is a number that is calculated from a person's weight and height. BMI may help to estimate how much of a person's weight is composed of fat. BMI can help identify those who may be at higher risk for certain medical problems. BMI can be measured using Portuguese measurements or metric measurements. To interpret your results, your health care provider will use BMI charts to identify whether you are underweight, normal weight, overweight, or obese. This information is not intended to replace advice given to you by your health care provider. Make sure you discuss any questions you have with your health care provider. Document Released: 02/13/2005 Document Revised: 05/17/2018 Document Reviewed: 04/17/2018 [employer] Patient Education 2020 [employer]. Follow Up Care 09/02/2022 11:09:53 With:Lani Méndez DO, FAM Address:Unknown When: Unknown [facility] 03-18-2023 Evaluation + Plan note Diagnostic Tests Pending * Urine Culture 09/02/22 [facility]01-25-2023 Progress note Author Delio Gonzales [facility] July 12, 2022 3:19pm Note Date/Time July 12, 2022 3 :19pm [facility] [address] [place] [address] Physiatry(Rehab) Progress Note Signed Patient: Chacho Edwards MR#: [id number] : 1945 Acct:[id number] Age/Sex: 77 / F Adm Date: 3 Loc: Room: [address] [place] [address] Type: ADM IN Attending Dr: Delio Gonzales MD Copies to: ~ Date of Service: 07/12/2022 Subjective Subjective Narrative: Ms. 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 This past medical history is notable for insulin-dependent diabetes type 2, hypertension, hyperlipidemia, chronic back pain with implanted neurostimulator, morbid obesity and arthritis. Patient presented to the outside facility with complaints of vision loss in the right eye and left hand/weakness and paresthesias. Patient recalls taking her dog out and mis-stepping/tripping when coming back inside the house. She did not sustain a fall but felt like her leg was weak at that time. 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 She thought she was just tired and went to bed. On awakening she also experienced left hand deficits which prompted a call to EMS. In the ER CT of the brain demonstrated chronic microvascular changes and parenchymal volume loss, otherwise unremarkable. CTA notable for origin ofthe right PARTS COUNTERPERSON, no acute abnormality. Unable to obtain the MRI due to presence of neurostimulator. She was noted to have clonic left upper extremity movements and underwent an EEGwhich demonstrated no seizure activity. Neurology initiated the patient p.o. Sandrara for suspected focal motor seizures. Repeat CT on 06/27/2022 demonstrated ill-defined areas of mildly decreased attenuation involving cerebral white matter bilaterally and within the basal ganglia bilaterally that are nonspecific but thought to be chronic. Neurology however is treating patient's symptoms as clinical stroke. She was initiated on atorvastatin and baby aspirin. Of note, she was also treated for E. coli UTI. Interval history: No acute events overnight She is requesting to be discharged home tomorrow She has progressed well in therapy. Chronic conditions are stable. Review of Systems Review of Systems All other systems reviewed & are negative unless noted below or in HPI Exam Physical Exam Vital Signs: Temp Pulse Resp BP Pulse Ox O2 Del Method FiO2 98.0 F 70 16 115/74 97 Room Air 97 07/12/22 11:19 07/12/22 11:19 07/12/22 11:19 07/12/22 11:19 07/12/22 11:19 07/12/22 14:49 07/02/22 08:26 Narrative: Const General: cooperative, comfortable, no acute distress, well developed Nutritional Appearance: Morbidly obese Orientation: alert, awake and oriented x3 Limitations: None HEENT Head: normal to inspection, normocephalic and atraumatic Ears: hearing grossly normal bilaterally Nose: external nose normal Face and sinus: normal facial exam Eyes General: appearance normal, both eyes and all related structures. 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 Loss of peripheral vision on the right side due to recent CVA, improving. Pupils: Disconjugate gaze, pupils are reactive to light EOM: EOM intact bilaterally Neck Neck: normal visual inspection, full ROM, no lymphadenopathy and trachea midline Neck mass: No Chest Chest palpation & inspection: normal inspection of the chest Resp Effort & Inspection: normal respiratory effort, able to speak in complete sentences, symmetric chest movement and no cough Auscultation: clear to auscultation bilaterally Cardio Jugular venous pressure: no JVD Rhythm: Regular rhythm and rate GI: Inspection: normal to inspection Palpation: soft, no hepatosplenomegaly and nontender Auscultation: normal bowel sounds Musc Cervical Spine: normal cervical lordosis and cervical ROM normal Thoracic/Lumbar Spine: thoraco-lumbar ROM normal Skin General: no rashes or lesions noted Neuro General: patient alert, oriented x3, left upper extremity weakness, pronator drift, numbness, tingling. Bilateral lower extremity numbness/tingling. Otherwise unremarkable exam. Cranial Nerves: PERRL Speech: speech normal Extrem Other: RUE weakness, paresthesias Psych Appearance: grossly normal Mental Status: WNL Mood: congruent mood Affect: normal affect Speech and Movement: speech and movement normal Attitude: cooperative Insight: Good Judgment: Good Objective Labs 07/11/22 04:49 07/11/22 04:49 Labs: Laboratory Results - last 24 hr 07/11/22 07/12/22 16:44 05:50 POC Glucose 87 97 POC Glucose Comment Cleaned meter Glu2: cleaned meter Medications and Allergies Allergies and Active Meds: Allergies clarithromycin [From Biaxin] Allergy (Verified 06/29/22 17:48) Unknown Reaction metoclopramide [From Reglan] Allergy (Verified 06/29/22 17:48) Unknown Reaction pregabalin [From Lyrica] Allergy (Verified 06/29/22 17:48) Unknown Reaction Sulfa (Sulfonamide Antibiotics) Allergy (Verified 06/29/22 17:48) Unknown Reaction sulfamethoxazole [From Bactrim] Allergy (Verified 06/29/22 17:48) Unknown Reaction trimethoprim [From Bactrim] Allergy (Verified 06/29/22 17:48) Unknown Reaction Active Medications Generic Name Dose Route Start Last Admin Trade Name Freq PRN Reason Stop Dose Admin Acetaminophen 1,000 mg 07/03/22 22:00 07/12/22 14:15 Acetaminophen 500 Mg Tablet PO 07/03/23 21:59 1,000 mg TID AMAN Administration Al Hydrox/Mg Hydrox/Simethicone 30 ml 06/29/22 18:17 Mag Hydrox/Al Hydrox/Simeth 30 Ml Udc PO 06/29/23 18:16 Q4H PRN Indigestion Aspirin 81 mg 06/30/22 09:00 07/12/22 08:43 Aspirin 81 Mg Tab.Chew PO 06/30/23 08:59 81 mg DAILY AMAN Administration Atenolol 25 mg 06/30/22 09:00 07/12/22 08:42 Atenolol *Nf* 25 Mg Tablet PO 06/30/23 08:59 25 mg QAM AMAN Administration Atenolol 50 mg 06/29/22 22:00 07/11/22 21:50 Atenolol *Nf* 25 Mg Tablet PO 06/29/23 21:59 50 mg QHS AMAN Administration Atorvastatin Calcium 80 mg 06/29/22 21:00 07/11/22 21:48 Atorvastatin 80 Mg Tablet PO 06/29/23 20:59 80 mg QPM AMAN Administration Bisacodyl 10 mg 06/29/22 18:17 07/02/22 17:36 Bisacodyl 10 Mg Supp.Rect SD 06/29/23 18:16 10 mg DAILY PRN Administration Constipation Dextrose 0 gm 06/29/22 18:46 Dextrose 50% In Water 25 Gm/50 Ml Syringe IV-PUSH 06/29/23 18:45 PRN PRN Hypoglycemia Diclofenac Sodium 2 gm 06/29/22 18:29 Diclofenac Sodium 1% Gel 100 Gm Tube TOPICAL 06/29/23 18:28 Q6HR PRN Pain Docusate Sodium 100 mg 06/29/22 18:17 07/11/22 21:49 Docusate 100 Mg Capsule PO 06/29/23 18:16 100 mg BID PRN Administration Constipation Docusate Sodium 283 mg 06/29/22 18:17 Docusate Enema 283 Mg/5 Ml Enema SD 06/29/23 18:16 DAILY PRN Constipation Gabapentin 600 mg 07/04/22 21:00 07/12/22 08:47 Gabapentin 600 Mg Tablet PO 07/04/23 20:59 600 mg BID AMAN Administration Glucose 0 gm 06/29/22 18:30 Dextrose 40% Gel 15 Gm Tube PO 06/29/23 18:29 PRN PRN Hypoglycemia Heparin Sodium (Porcine) 5,000 unit 06/30/22 21:00 07/12/22 08:50 Heparin 5,000 Unit/Ml Vial SUBCUT 06/30/23 20:59 5,000 unit Q12HR AMAN Administration Insulin Aspart Prota 70%/Aspart 30% 20 units 06/30/22 09:00 07/12/22 08:59 Insulin Aspart Protamin/Aspart 300 Units/3 Ml Insuln.Pen SUBCUT 06/30/23 08:59 20 units QAM AMAN Administration Insulin Aspart Prota 70%/Aspart 30% 20 units 07/08/22 17:00 07/11/22 17:22 Insulin Aspart Protamin/Aspart 300 Units/3 Ml Insuln.Pen SUBCUT 07/08/23 16:59 20 units DAILY.5P AMAN Administration Lactulose 30 gm 06/29/22 18:17 07/02/22 08:46 Lactulose 20 Gm/30 Ml Udc PO 06/29/23 18:16 30 gm DAILY PRN Administration Constipation Levetiracetam 750 mg 06/29/22 21:00 07/12/22 08:43 Levetiracetam 250 Mg Tablet PO 06/29/23 20:59 750 mg BID AMAN Administration Lidocaine 2 patch 07/03/22 16:00 07/12/22 09:01 Lidocaine 4% Adh..Patch TOPICAL 07/03/23 15:59 2 patch DAILY AMAN Administration Liraglutide 1.8 mg 06/30/22 09:00 07/12/22 08:56 Liraglutide 18 Mg/3 Ml Pen.Injctr SUBCUT 06/30/23 08:59 1.8 mg DAILY AMAN Administration Lisinopril 10 mg 07/04/22 09:00 07/12/22 08:46 Lisinopril 10 Mg Tablet PO 07/04/23 08:59 10 mg DAILY AMAN Administration Nystatin 1 applic 06/29/22 22:00 07/12/22 14:15 Nystatin 100,000 Unit/Gram Powder 15 Gm Bottle TOPICAL 06/29/23 21:59 1 applic TID AAMN Administration Omeprazole 40 mg 06/30/22 09:00 07/12/22 08:42 Omeprazole 20 Mg Capsule.Dr PO 06/30/23 08:59 40 mg DAILY AMAN Administration Oxycodone HCl 5 mg 07/03/22 15:59 07/12/22 14:15 Oxycodone Ir 5 Mg Tablet PO 5 mg Q4HR PRN Administration Pain Sennosides 2 tab 06/30/22 12:00 07/04/22 21:29 Sennosides 8.6 Mg Tablet PO 06/30/23 11:59 2 tab DAILY@12 PRN Administration If no BM in 2 days Sodium Chloride 0 ml 06/29/22 18:17 Sodium Chloride 0.9 % 10 Ml Syringe IV-PUSH 06/29/23 18:16 PRN PRN Flush Trazodone HCl 100 mg 07/03/22 15:59 07/11/22 21:48 Trazodone 100 Mg Tablet PO 06/30/23 12:48 100 mg QHS PRN Administration Insomnia Assessment/Plan Assessment/Plan (1) Diabetes: Code(s): E11.9 - Type 2 diabetes mellitus without complications Status: Acute (2) Obesity, morbid, BMI 40.0-49.9: Code(s): E66.01 - Morbid (severe) obesity due to excess calories Status: Acute (3) Hypertension: Code(s): I10 - Essential (primary) hypertension Status: Acute (4) Hyperlipidemia: Code(s): E78.5 - Hyperlipidemia, unspecified Status: Acute (5) Impaired mobility and activities of daily living: Code(s): Z74.09 - Other reduced mobility; Z78.9 - Other specified health status Status: Acute (6) CVA (cerebral vascular accident): Plan: PT to improve pt's strength, endurance, bed mobility, transfers (sit-stand), standing balance, gait quality on level surfaces and stairs, coordination and functional ADL skills. Will also work to improve pt's safety awareness during transfers and ambulation. OT for basic ADL re-training (bathing, dressing, toileting, continence, grooming, feeding, transferring), to increase activity tolerance and functional mobility and to evaluate for adaptive and assistive devices. Will work to improve pt's endurance and educate pt on fall prevention and energy conservationtechniques-pacing strategies and proper breathing techniques during functional tasks. BUSINESS DIVISION CHAIR to evaluate and treat patient?s cognition, language and communication skills, assess swallow function. Patient education Pressure ulcer prophylaxis; encourage mobilization, frequent postural changes, pressure-relief techniques DVT prophylaxis Encourage deep breathing exercise incentive spirometry. Monitor bladder. Toileting schedule. Continue current bladder management, with scans as needed and CIC if needed. Start bowel care program every day to obtain continence, prevent ileus. Maintain fall precautions Gait and balance retraining Provision of the necessary gait aids and functional adaptive equipment to enhance the patient's a functional anabaptism Encourage deep breathing exercises and incentive spirometry RD evaluation Ensure adequate nutrition and hydration Discharge planning. Code(s): I63.9 - Cerebral infarction, unspecified Status: Acute (7) Presence of neurostimulator: Code(s): Z96.82 - Presence of neurostimulator Status: Acute (8) Left hemiplegia: Code(s): G81.94 - Hemiplegia, unspecified affecting left nondominant side Status: Acute Plan This is a 77-year-old female who presents to [facility] inpatient rehab for functional impairment secondary to suspected CVA. CT/CTA imaging is unremarkable and unable to obtain an MRI due to presence of neurostimulator (apparently spinal cord stimulator and pulse generator were not able to be charged). Repeat CT on 06/27/2022 again did not demonstrate any acute intracranial abnormality. * Home tomorrow * Progressed well, see PT/OT notes. * Minimal residual left hemiplegia * Meds reconciled. Pressure ulcer prophylaxis; encourage mobilization, frequent postural changes, pressure-relief techniques DVT prophylaxis: Heparin subcu every 12 hours Encourage deep breathing exercise incentive spirometry. Monitor bladder. Toileting schedule. Continue current bladder management, with scans as needed and CIC if needed. Start bowel care program every day to obtain continence, prevent ileus. Maintain fall precautions Gait and balance retraining Functional training and self-care and home management, including activities of daily living and instrumental activities of daily living Provision of the necessary gait aids and functional adaptive equipment to enhance the patient's a functional anabaptism Ensure adequate nutrition and hydration Sleep: Continue trazodone Discharge planning: Home with family tomorrow Plan: I completed a substantive portion of this encounter, the medical decision makingportion of this note in its entirety, including Allied health note review, nursing note review, claims consultant note review, discussion with nursing and case management, and more than 50% of my time was spent on counseling and coordination of care, time spent 20 minutes Patient was personally seen by me, Dr. Gonzales, on the day of encounter, reviewed the history and the relevant portions of the chart, including current orders, allied health and claims consultant notes, labs/imaging and performed gómez elements of exam and I formulated the plan of care and facilitated the medical decision making. Documented By: Delio Gonzales MD 07/12/22 151 Signed By: <Electronically signed by Delio Gonzales MD> 07/12/22 15[address] [facility] Work Phone: 1(143) 370-988301-25-2023 Progress note Author Delio Gonzales [facility] July 12, 2022 2:39pm Note Date/Time July 11, 2022 1 2:21pm [facility] [address] [place], [place] [id number] Physiatry(Rehab) Progress Note Signed Patient: Chacho Edwards MR#: [id number] : 1945 Acct:[id number] Age/Sex: 77 / F Adm Date: 3 Loc: 5T Room: 9D3604-4 Type: ADM IN Attending Dr: Delio Gonzales MD Copies to: ~ <Mariposa Martinez APRN - Last Filed: 07/11/22 12:21> Date of Service: 07/11/2022 Subjective <Mariposa Martinez APRN - Last Filed: 07/11/22 12:21> Subjective Narrative: Ms. 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 This past medical history is notable for insulin-dependent diabetes type 2, hypertension, hyperlipidemia, chronic back pain with implanted neurostimulator, morbid obesity and arthritis. Patient presented to the outside facility with complaints of vision loss in the right eye and left hand/weakness and paresthesias. Patient recalls taking her dog out and mis-stepping/tripping when coming back inside the house. She did not sustain a fall but felt like her leg was weak at that time. 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 She thought she was just tired and went to bed. On awakening she also experienced left hand deficits which prompted a call to EMS. In the ER CT of the brain demonstrated chronic microvascular changes and parenchymal volume loss, otherwise unremarkable. CTA notable for origin ofthe right PARTS COUNTERPERSON, no acute abnormality. Unable to obtain the MRI due to presence of neurostimulator. She was noted to have clonic left upper extremity movements and underwent an EEGwhich demonstrated no seizure activity. Neurology initiated the patient p.o. 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 Repeat CT on 06/27/2022 demonstrated ill-defined areas of mildly decreased attenuation involving cerebral white matter bilaterally and within the basal ganglia bilaterally that are nonspecific but thought to be chronic. Neurology however is treating patient's symptoms as clinical stroke. She was initiated on atorvastatin and baby aspirin. Of note, she was also treated for E. coli UTI. Interval history: She is doing very well this morning. No acute complaints or concerns. Denies pain or discomfort on assessment. Asking about discharge. She is pleased with her progress so far, and although she does not think she's at baseline, believes she is capable of independent functioning at home. Unsure if there is a role for an FI, as she lives with her elderly mother, who is not capable of assisting with ADLs. Chronic conditions are stable. Review of Systems <Mariposa Martinez APRN - Last Filed: 07/11/22 12:21> Constitutional Constitutional: Reports as per HPI Eyes Eyes: Reports as per HPI Comments: Blind in the left eye, peripheral vision loss on the right ENT Ears, Nose, Mouth, and Throat: Reports system reviewed and no additional complaints, except as documented Cardiovascular Cardiovascular: Reports system reviewed and no additional complaints, except as documented Respiratory Respiratory: Reports system reviewed and no additional complaints, except as documented Gastrointestinal Gastrointestinal: Reports system reviewed and no additional complaints, except as documented Genitourinary Genitourinary: Reports system reviewed and no additional complaints, except as documented Musculoskeletal Musculoskeletal: Reports abnormal gait, Reports muscle weakness, Reports numbness and Reports tingling Integumentary/Breasts Skin/Breast: Reports system reviewed and no additional complaints, except as documented Neurologic Neurologic: Reports as per HPI, Reports abnormal gait, Reports numbness and Reports tingling Psychiatric Psychiatric: Reports system reviewed and no additional complaints, except as documented Endocrine Endocrine: Reports system reviewed and no additional complaints, except as documented Allergic/Immunologic Allergic/Immunologic: Reports system reviewed and no additional complaints, except as documented Exam <Mariposa Martinez APRN - Last Filed: 07/11/22 12:21> Physical Exam Vital Signs: Temp Pulse Resp BP Pulse Ox O2 Del Method FiO2 97.8 F 68 18 138/80 100 Room Air 97 07/11/22 08:55 07/11/22 08:55 07/11/22 08:55 07/11/22 08:55 07/11/22 08:55 07/11/22 08:55 07/02/22 08:26 Narrative: Const General: cooperative, comfortable, no acute distress, well developed Nutritional Appearance: Morbidly obese Orientation: alert, awake and oriented x3 Limitations: None HEENT Head: normal to inspection, normocephalic and atraumatic Ears: hearing grossly normal bilaterally Nose: external nose normal Face and sinus: normal facial exam Eyes General: appearance normal, both eyes and all related structures. 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 Loss of peripheral vision on the right side due to recent CVA, improving. Pupils: Disconjugate gaze, pupils are reactive to light EOM: EOM intact bilaterally Neck Neck: normal visual inspection, full ROM, no lymphadenopathy and trachea midline Neck mass: No Chest Chest palpation & inspection: normal inspection of the chest Resp Effort & Inspection: normal respiratory effort, able to speak in complete sentences, symmetric chest movement and no cough Auscultation: clear to auscultation bilaterally Cardio Jugular venous pressure: no JVD Rhythm: Regular rhythm and rate GI: Inspection: normal to inspection Palpation: soft, no hepatosplenomegaly and nontender Auscultation: normal bowel sounds Musc Cervical Spine: normal cervical lordosis and cervical ROM normal Thoracic/Lumbar Spine: thoraco-lumbar ROM normal Skin General: no rashes or lesions noted Neuro General: patient alert, oriented x3, left upper extremity weakness, pronator drift, numbness, tingling. Bilateral lower extremity numbness/tingling. Otherwise unremarkable exam. Cranial Nerves: PERRL Speech: speech normal Extrem Other: RUE weakness, paresthesias Psych Appearance: grossly normal Mental Status: WNL Mood: congruent mood Affect: normal affect Speech and Movement: speech and movement normal Attitude: cooperative Insight: Good Judgment: Good Objective <Mariposa Martinez APRN - Last Filed: 07/11/22 12:21> Labs 07/11/22 04:49 07/11/22 04:49 Labs: Laboratory Results - last 24 hr 07/10/22 07/11/22 07/11/22 17:16 04:49 04:49 Corrected WBC 4.8 Uncorrected WBC Count 4.8 RBC 4.08 Hgb 12.5 Hct 38.5 MCV 94.3 MCH 30.6 MCHC 32.5 RDW 13.6 Plt Count 191 MPV 9.2 Neut % (Auto) 54.1 Lymph % (Auto) 31.6 Person % (Auto) 10.0 Eos % (Auto) 3.7 Baso % (Auto) 0.6 Nucleat RBC Rel Count 0.2 Neut # (Auto) 2.6 Lymph # (Auto) 1.5 Person # (Auto) 0.5 Eos # (Auto) 0.2 Baso # (Auto) 0.0 PHA Creatinine Clear 41.81 Sodium 142 Potassium 4.8 Chloride 109 Carbon Dioxide 23.7 Anion Gap 14.1 BUN 26 H Creatinine 1.49 H Est GFR ( Amer) 41 Est GFR (Non-Af Amer) 34 Glucose 84 POC Glucose 86 Calcium 9.0 07/11/22 06:09 Corrected WBC Uncorrected WBC Count RBC Hgb Hct MCV MCH MCHC RDW Plt Count MPV Neut % (Auto) Lymph % (Auto) Person % (Auto) Eos % (Auto) Baso % (Auto) Nucleat RBC Rel Count Neut # (Auto) Lymph # (Auto) Person # (Auto) Eos # (Auto) Baso # (Auto) PHA Creatinine Clear Sodium Potassium Chloride Carbon Dioxide Anion Gap BUN Creatinine Est GFR ( Amer) Est GFR (Non-Af Amer) Glucose POC Glucose 83 Calcium Medications and Allergies Allergies and Active Meds: Allergies clarithromycin [From Biaxin] Allergy (Verified 06/29/22 17:48) Unknown Reaction metoclopramide [From Reglan] Allergy (Verified 06/29/22 17:48) Unknown Reaction pregabalin [From Lyrica] Allergy (Verified 06/29/22 17:48) Unknown Reaction Sulfa (Sulfonamide Antibiotics) Allergy (Verified 06/29/22 17:48) Unknown Reaction sulfamethoxazole [From Bactrim] Allergy (Verified 06/29/22 17:48) Unknown Reaction trimethoprim [From Bactrim] Allergy (Verified 06/29/22 17:48) Unknown Reaction Active Medications Generic Name Dose Route Start Last Admin Trade Name Freq PRN Reason Stop Dose Admin Acetaminophen 1,000 mg 07/03/22 22:00 07/11/22 09:00 Acetaminophen 500 Mg Tablet PO 07/03/23 21:59 1,000 mg TID AMAN Administration Al Hydrox/Mg Hydrox/Simethicone 30 ml 06/29/22 18:17 Mag Hydrox/Al Hydrox/Simeth 30 Ml Udc PO 06/29/23 18:16 Q4H PRN Indigestion Aspirin 81 mg 06/30/22 09:00 07/11/22 08:59 Aspirin 81 Mg Tab.Chew PO 06/30/23 08:59 81 mg DAILY AMAN Administration Atenolol 25 mg 06/30/22 09:00 07/11/22 09:02 Atenolol *Nf* 25 Mg Tablet PO 01/13/24 08:59 25 mg QAM AMAN Administration Atenolol 50 mg 06/29/22 22:00 07/10/22 21:44 Atenolol *Nf* 25 Mg Tablet PO 06/29/23 21:59 50 mg QHS AMAN Administration Atorvastatin Calcium 80 mg 06/29/22 21:00 07/10/22 21:44 Atorvastatin 80 Mg Tablet PO 06/29/23 20:59 80 mg QPM AMAN Administration Bisacodyl 10 mg 06/29/22 18:17 07/02/22 17:36 Bisacodyl 10 Mg Supp.Rect SD 06/29/23 18:16 10 mg DAILY PRN Administration Constipation Dextrose 0 gm 06/29/22 18:46 Dextrose 50% In Water 25 Gm/50 Ml Syringe IV-PUSH 06/29/23 18:45 PRN PRN Hypoglycemia Diclofenac Sodium 2 gm 06/29/22 18:29 Diclofenac Sodium 1% Gel 100 Gm Tube TOPICAL 06/29/23 18:28 Q6HR PRN Pain Docusate Sodium 100 mg 06/29/22 18:17 07/02/22 08:45 Docusate 100 Mg Capsule PO 06/29/23 18:16 100 mg BID PRN Administration Constipation Docusate Sodium 283 mg 06/29/22 18:17 Docusate Enema 283 Mg/5 Ml Enema SD 06/29/23 18:16 DAILY PRN Constipation Gabapentin 600 mg 07/04/22 21:00 07/11/22 08:59 Gabapentin 600 Mg Tablet PO 07/04/23 20:59 600 mg BID AMAN Administration Glucose 0 gm 06/29/22 18:30 Dextrose 40% Gel 15 Gm Tube PO 06/29/23 18:29 PRN PRN Hypoglycemia Heparin Sodium (Porcine) 5,000 unit 06/30/22 21:00 07/11/22 09:02 Heparin 5,000 Unit/Ml Vial SUBCUT 06/30/23 20:59 5,000 unit Q12HR AMAN Administration Insulin Aspart Prota 70%/Aspart 30% 20 units 06/30/22 09:00 07/11/22 09:04 Insulin Aspart Protamin/Aspart 300 Units/3 Ml Insuln.Pen SUBCUT 06/30/23 08:59 20 units QAM AMAN Administration Insulin Aspart Prota 70%/Aspart 30% 20 units 07/08/22 17:00 07/10/22 17:18 Insulin Aspart Protamin/Aspart 300 Units/3 Ml Insuln.Pen SUBCUT 07/08/23 16:59 20 units DAILY.5P AMAN Administration Lactulose 30 gm 06/29/22 18:17 07/02/22 08:46 Lactulose 20 Gm/30 Ml Udc PO 06/29/23 18:16 30 gm DAILY PRN Administration Constipation Levetiracetam 750 mg 06/29/22 21:00 07/11/22 08:59 Levetiracetam 250 Mg Tablet PO 06/29/23 20:59 750 mg BID AMAN Administration Lidocaine 2 patch 07/03/22 16:00 07/11/22 09:01 Lidocaine 4% Adh..Patch TOPICAL 07/03/23 15:59 2 patch DAILY AMAN Administration Liraglutide 1.8 mg 06/30/22 09:00 07/11/22 09:05 Liraglutide 18 Mg/3 Ml Pen.Injctr SUBCUT 06/30/23 08:59 1.8 mg DAILY AMAN Administration Lisinopril 10 mg 07/04/22 09:00 07/11/22 09:00 Lisinopril 10 Mg Tablet PO 07/04/23 08:59 10 mg DAILY AMAN Administration Nystatin 1 applic 06/29/22 22:00 07/11/22 09:05 Nystatin 100,000 Unit/Gram Powder 15 Gm Bottle TOPICAL 06/29/23 21:59 1 applic TID AMAN Administration Omeprazole 40 mg 06/30/22 09:00 07/11/22 08:59 Omeprazole 20 Mg Capsule.Dr PO 06/30/23 08:59 40 mg DAILY AMAN Administration Oxycodone HCl 5 mg 07/03/22 15:59 07/11/22 08:59 Oxycodone Ir 5 Mg Tablet PO 5 mg Q4HR PRN Administration Pain Sennosides 2 tab 06/30/22 12:00 07/04/22 21:29 Sennosides 8.6 Mg Tablet PO 06/30/23 11:59 2 tab DAILY@12 PRN Administration If no BM in 2 days Sodium Chloride 0 ml 06/29/22 18:17 Sodium Chloride 0.9 % 10 Ml Syringe IV-PUSH 06/29/23 18:16 PRN PRN Flush Trazodone HCl 100 mg 07/03/22 15:59 07/10/22 21:44 Trazodone 100 Mg Tablet PO 06/30/23 12:48 100 mg QHS PRN Administration Insomnia Assessment/Plan <Mariposa ISIDRO Martinez - Last Filed: 07/11/22 12:21> Assessment/Plan (1) Diabetes: Code(s): E11.9 - Type 2 diabetes mellitus without complications Status: Acute (2) Obesity, morbid, BMI 40.0-49.9: Code(s): E66.01 - Morbid (severe) obesity due to excess calories Status: Acute (3) Hypertension: Code(s): I10 - Essential (primary) hypertension Status: Acute (4) Hyperlipidemia: Code(s): E78.5 - Hyperlipidemia, unspecified Status: Acute (5) Impaired mobility and activities of daily living: Code(s): Z74.09 - Other reduced mobility; Z78.9 - Other specified health status Status: Acute (6) CVA (cerebral vascular accident): Plan: PT to improve pt's strength, endurance, bed mobility, transfers (sit-stand), standing balance, gait quality on level surfaces and stairs, coordination and functional ADL skills. Will also work to improve pt's safety awareness during transfers and ambulation. OT for basic ADL re-training (bathing, dressing, toileting, continence, grooming, feeding, transferring), to increase activity tolerance and functional mobility and to evaluate for adaptive and assistive devices. Will work to improve pt's endurance and educate pt on fall prevention and energy conservationtechniques-pacing strategies and proper breathing techniques during functional tasks. BUSINESS DIVISION CHAIR to evaluate and treat patient?s cognition, language and communication skills, assess swallow function. Patient education Pressure ulcer prophylaxis; encourage mobilization, frequent postural changes, pressure-relief techniques DVT prophylaxis Encourage deep breathing exercise incentive spirometry. Monitor bladder. Toileting schedule. Continue current bladder management, with scans as needed and CIC if needed. Start bowel care program every day to obtain continence, prevent ileus. Maintain fall precautions Gait and balance retraining Provision of the necessary gait aids and functional adaptive equipment to enhance the patient's a functional anabaptism Encourage deep breathing exercises and incentive spirometry RD evaluation Ensure adequate nutrition and hydration Discharge planning. Code(s): I63.9 - Cerebral infarction, unspecified Status: Acute (7) Presence of neurostimulator: Code(s): Z96.82 - Presence of neurostimulator Status: Acute (8) Left hemiplegia: Code(s): G81.94 - Hemiplegia, unspecified affecting left nondominant side Status: Acute Plan This is a 77-year-old female who [facility] for functional impairment secondary to suspected CVA. CT/CTA imaging is unremarkable and unable to obtain an MRI due to presence of neurostimulator (apparently spinal cord stimulator and pulse generator were not able to be charged). Repeat CT on 06/27/2022 again did not demonstrate any acute intracranial abnormality. * Repeat labs reviewed. CBC is unremarkable. Renal function is trending down, creatinine 1.49. * Overall, she's doing well. Her vitals are stable. Sugars under good control. She does not have any pain. Continues to ambulate functional distances in therapy, no assistive device, SBA. Requires SBA for bed mobility and transfers. * Wants to go home soon. Pressure ulcer prophylaxis; encourage mobilization, frequent postural changes, pressure-relief techniques DVT prophylaxis: Heparin subcu every 12 hours Encourage deep breathing exercise incentive spirometry. Monitor bladder. Toileting schedule. Continue current bladder management, with scans as needed and CIC if needed. Start bowel care program every day to obtain continence, prevent ileus. Maintain fall precautions Gait and balance retraining Functional training and self-care and home management, including activities of daily living and instrumental activities of daily living Provision of the necessary gait aids and functional adaptive equipment to enhance the patient's a functional anabaptism Ensure adequate nutrition and hydration Sleep: Continue trazodone Discharge planning: Home with family later this week. I spent greater than 15 minutes for services, including [id number] encounter with the patient, discussion of the case, plan of care, and exam; and [id number] activities, such as reviewing pertinent claims consultant documentation,recent therapy notes, laboratory and radiology studies, and discussion of case with care team including physician, nursing, shell mold bonder, and therapists. More than 50 % of time was spent on patient/family counseling or coordination ofcare. <Delio Gonzales MD - Last Filed: 07/12/22 14:39> Assessment/Plan (1) Diabetes: (2) Obesity, morbid, BMI 40.0-49.9: (3) Hypertension: (4) Hyperlipidemia: (5) Impaired mobility and activities of daily living: (6) CVA (cerebral vascular accident): Plan: PT to improve pt's strength, endurance, bed mobility, transfers (sit-stand), standing balance, gait quality on level surfaces and stairs, coordination and functional ADL skills. Will also work to improve pt's safety awareness during transfers and ambulation. OT for basic ADL re-training (bathing, dressing, toileting, continence, grooming, feeding, transferring), to increase activity tolerance and functional mobility and to evaluate for adaptive and assistive devices. Will work to improve pt's endurance and educate pt on fall prevention and energy conservationtechniques-pacing strategies and proper breathing techniques during functional tasks. BUSINESS DIVISION CHAIR to evaluate and treat patient?s cognition, language and communication skills, assess swallow function. Patient education Pressure ulcer prophylaxis; encourage mobilization, frequent postural changes, pressure-relief techniques DVT prophylaxis Encourage deep breathing exercise incentive spirometry. Monitor bladder. Toileting schedule. Continue current bladder management, with scans as needed and CIC if needed. Start bowel care program every day to obtain continence, prevent ileus. Maintain fall precautions Gait and balance retraining Provision of the necessary gait aids and functional adaptive equipment to enhance the patient's a functional anabaptism Encourage deep breathing exercises and incentive spirometry RD evaluation Ensure adequate nutrition and hydration Discharge planning. (7) Presence of neurostimulator: (8) Left hemiplegia: Plan: I completed a substantive portion of this encounter, the medical decision makingportion of this note in its entirety, including Allied health note review, nursing note review, claims consultant note review, discussion with nursing and case management, and more than 50% of my time was spent on counseling and coordination of care, time spent 20 minutes Patient was personally seen by me, Dr. Gonzales, on the day of encounter, reviewed the history and the relevant portions of the chart, including current orders, allied health and claims consultant notes, labs/imaging and performed gómez elements of exam and I formulated the plan of care and facilitated the medical decision making. Documented By: Delio Gonzales MD 07/11/22 1214 Signed By: <Electronically signed by Delio Gonzales MD> 07/12/22 4509 <Electronically signed by ISIDRO Martinez> 07/11/22 1221 [facility] Work Phone: 1(571) 947-159401-22-2023 Progress note Author Jossy Jacobs [facility] July 09, 2022 5:41pm Note Date/Time July 09, 2022 5 :41pm [facility] [address] [place] [address] Hospitalist Progress Note Signed Patient: Chacho Edwards MR#: [id number] : 1945 Acct:[id number] Age/Sex: 77 / F Adm Date: 3 Loc: Room: [address] [place] [address] Type: ADM IN Attending Dr: Deilo Gonzales MD Copies to: ~ Date of Service: 07/08/2022 Subjective Subjective Narrative: Patient is seen and examined on follow-up. She continues to work with therapy. Vitals are reviewed with blood pressures controlled, afebrile and no hypoxia. Labs are reviewed from June 30 CBC normal, BMP with creatinine 1.60 known CKDprior creatinine was 1.75. Glucose is reviewed and stable. Exam Physical Exam Vital Signs: Temp Pulse Resp BP Pulse Ox O2 Del Method FiO2 97.8 F 72 20 148/79 H 98 Room Air 97 07/08/22 03:55 07/08/22 03:55 07/08/22 03:55 07/08/22 03:55 07/08/22 03:55 07/08/22 03:55 07/02/22 08:26 Narrative: CONST- alert, in bed, no distress at rest CARD- RRR no abnormal heart tones PULM- dimin without wheeze or rhonchi, RA ABD- S/NT, NABS obese EXTREM- no edema BLE, calves nontender NEURO-sensory deficits bilateral lower extremities and left upper extremity, speech clear tongue midline MS-left upper extremity weakness Objective Lab Results 06/30/22 07:46 07/04/22 10:16 Meds Allergies and Active Meds Allergies clarithromycin [From Biaxin] Allergy (Verified 06/29/22 17:48) Unknown Reaction metoclopramide [From Reglan] Allergy (Verified 06/29/22 17:48) Unknown Reaction pregabalin [From Lyrica] Allergy (Verified 06/29/22 17:48) Unknown Reaction Sulfa (Sulfonamide Antibiotics) Allergy (Verified 06/29/22 17:48) Unknown Reaction sulfamethoxazole [From Bactrim] Allergy (Verified 01/12/23 17:48) Unknown Reaction trimethoprim [From Bactrim] Allergy (Verified 06/29/22 17:48) Unknown Reaction Active Meds: Active Medications Generic Name Dose Route Start Last Admin Trade Name Marichuy PRN Reason Stop Dose Admin Acetaminophen 1,000 mg 07/03/22 22:00 07/08/22 13:31 Acetaminophen 500 Mg Tablet PO 07/03/23 21:59 1,000 mg TID AMAN Administration Al Hydrox/Mg Hydrox/Simethicone 30 ml 06/29/22 18:17 Mag Hydrox/Al Hydrox/Simeth 30 Ml Udc PO 06/29/23 18:16 Q4H PRN Indigestion Aspirin 81 mg 06/30/22 09:00 07/08/22 07:59 Aspirin 81 Mg Tab.Chew PO 06/30/23 08:59 81 mg DAILY AMAN Administration Atenolol 25 mg 06/30/22 09:00 07/08/22 07:59 Atenolol *Nf* 25 Mg Tablet PO 06/30/23 08:59 25 mg QAM AMAN Administration Atenolol 50 mg 06/29/22 22:00 07/07/22 21:23 Atenolol *Nf* 25 Mg Tablet PO 06/29/23 21:59 50 mg QHS AMAN Administration Atorvastatin Calcium 80 mg 06/29/22 21:00 07/07/22 21:22 Atorvastatin 80 Mg Tablet PO 06/29/23 20:59 80 mg QPM AMAN Administration Bisacodyl 10 mg 06/29/22 18:17 07/02/22 17:36 Bisacodyl 10 Mg Supp.Rect SD 06/29/23 18:16 10 mg DAILY PRN Administration Constipation Dextrose 0 gm 06/29/22 18:46 Dextrose 50% In Water 25 Gm/50 Ml Syringe IV-PUSH 06/29/23 18:45 PRN PRN Hypoglycemia Diclofenac Sodium 2 gm 06/29/22 18:29 Diclofenac Sodium 1% Gel 100 Gm Tube TOPICAL 06/29/23 18:28 Q6HR PRN Pain Docusate Sodium 100 mg 06/29/22 18:17 07/02/22 08:45 Docusate 100 Mg Capsule PO 06/29/23 18:16 100 mg BID PRN Administration Constipation Docusate Sodium 283 mg 06/29/22 18:17 Docusate Enema 283 Mg/5 Ml Enema SD 06/29/23 18:16 DAILY PRN Constipation Gabapentin 600 mg 07/04/22 21:00 07/08/22 07:59 Gabapentin 600 Mg Tablet PO 07/04/23 20:59 600 mg BID AMAN Administration Glucose 0 gm 06/29/22 18:30 Dextrose 40% Gel 15 Gm Tube PO 06/29/23 18:29 PRN PRN Hypoglycemia Heparin Sodium (Porcine) 5,000 unit 06/30/22 21:00 07/08/22 08:03 Heparin 5,000 Unit/Ml Vial SUBCUT 06/30/23 20:59 5,000 unit Q12HR AMAN Administration Insulin Aspart Prota 70%/Aspart 30% 20 units 06/30/22 09:00 07/08/22 08:02 Insulin Aspart Protamin/Aspart 300 Units/3 Ml Insuln.Pen SUBCUT 06/30/23 08:59 20 units QAM AMAN Administration Insulin Aspart Prota 70%/Aspart 30% 20 units 07/08/22 17:00 Insulin Aspart Protamin/Aspart 300 Units/3 Ml Insuln.Pen SUBCUT 07/08/23 16:59 DAILY.5P AMAN Lactulose 30 gm 06/29/22 18:17 07/02/22 08:46 Lactulose 20 Gm/30 Ml Udc PO 06/29/23 18:16 30 gm DAILY PRN Administration Constipation Levetiracetam 750 mg 06/29/22 21:00 07/08/22 07:59 Levetiracetam 250 Mg Tablet PO 06/29/23 20:59 750 mg BID AMAN Administration Lidocaine 2 patch 07/03/22 16:00 07/08/22 08:05 Lidocaine 4% Adh..Patch TOPICAL 07/03/23 15:59 2 patch DAILY AMAN Administration Liraglutide 1.8 mg 06/30/22 09:00 07/08/22 08:02 Liraglutide 18 Mg/3 Ml Pen.Injctr SUBCUT 06/30/23 08:59 1.8 mg DAILY AMAN Administration Lisinopril 10 mg 07/04/22 09:00 07/08/22 07:59 Lisinopril 10 Mg Tablet PO 07/04/23 08:59 10 mg DAILY AMAN Administration Nystatin 1 applic 06/29/22 22:00 07/08/22 15:02 Nystatin 100,000 Unit/Gram Powder 15 Gm Bottle TOPICAL 06/29/23 21:59 1 applic TID AMAN Administration Omeprazole 40 mg 06/30/22 09:00 07/08/22 08:49 Omeprazole 20 Mg Capsule. PO 06/30/23 08:59 Not Given DAILY AMAN Oxycodone HCl 5 mg 07/03/22 15:59 07/08/22 13:34 Oxycodone Ir 5 Mg Tablet PO 5 mg Q4HR PRN Administration Pain Sennosides 2 tab 06/30/22 12:00 07/04/22 21:29 Sennosides 8.6 Mg Tablet PO 06/30/23 11:59 2 tab DAILY@12 PRN Administration If no BM in 2 days Sodium Chloride 0 ml 06/29/22 18:17 Sodium Chloride 0.9 % 10 Ml Syringe IV-PUSH 06/29/23 18:16 PRN PRN Flush Trazodone HCl 100 mg 07/03/22 15:59 07/07/22 21:22 Trazodone 100 Mg Tablet PO 06/30/23 12:48 100 mg QHS PRN Administration Insomnia A&P - Hospitalist Assessment/Plan (1) CVA (cerebral vascular accident): (2) Left hemiplegia: (3) Hypertension: (4) Diabetes: Plan CVA (cerebrovascular accident)/left hemiaplasia ? Further POC per PMR team for rehabilitative therapy, pain control and bowel regimen, DVT PPx ? Continues aspirin and statin for secondary stroke prevention Chronic conditions 1. Type 2 diabetes?continue insulin 2. HTN, HLD?atenolol, lisinopril, atorvastatin 3. CKD 3?trend labs 4. Chronic back pain?has neurostimulator 5. Obesity Documented By: CHAS Pinto 3 [id number] Signed By: <Electronically signed by YOLA-RIMMA Jacobs> 07/09/22 0831 [facility] Work Phone: 1(905) 714-317401-21-2023 Progress note Author Delio Gonzales [facility] July 07, 2022 10:01pm Note Date/Time July 07, 2022 1 0:01pm [facility] [address] [place] [address] Physiatry(Rehab) Progress Note Signed Patient: Chacho Edwards MR#: [id number] : 1945 Acct:[id number] Age/Sex: 77 / F Adm Date: 3 Loc: 5T Room: 2V0299-4 Type: ADM IN Attending Dr: Delio Gonzales MD Copies to: ~ Date of Service: 07/07/2022 Subjective Subjective Narrative: Ms. 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 This past medical history is notable for insulin-dependent diabetes type 2, hypertension, hyperlipidemia, chronic back pain with implanted neurostimulator, morbid obesity and arthritis. Patient presented to the outside facility with complaints of vision loss in the right eye and left hand/weakness and paresthesias. Patient recalls taking her dog out and mis-stepping/tripping when coming back inside the house. She did not sustain a fall but felt like her leg was weak at that time. 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 She thought she was just tired and went to bed. On awakening she also experienced left hand deficits which prompted a call to EMS. In the ER CT of the brain demonstrated chronic microvascular changes and parenchymal volume loss, otherwise unremarkable. CTA notable for origin ofthe right PARTS COUNTERPERSON, no acute abnormality. Unable to obtain the MRI due to presence of neurostimulator. She was noted to have clonic left upper extremity movements and underwent an EEGwhich demonstrated no seizure activity. Neurology initiated the patient p.o. 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 Repeat CT on 06/27/2022 demonstrated ill-defined areas of mildly decreased attenuation involving cerebral white matter bilaterally and within the basal ganglia bilaterally that are nonspecific but thought to be chronic. Neurology however is treating patient's symptoms as clinical stroke. She was initiated on atorvastatin and baby aspirin. Of note, she was also treated for E. coli UTI. Interval history: Walking 75' with hemiwalker and able to do some stairs. Biggest issue is left hand/arm weakness, apraxia. She's pleased with progress. Blood sugars low-normal. Chronic conditions are stable. Review of Systems Review of Systems All other systems reviewed & are negative unless noted below or in HPI Exam Physical Exam Vital Signs: Temp Pulse Resp BP Pulse Ox O2 Del Method FiO2 97.4 F L 76 20 147/66 H 98 Room Air 97 07/07/22 15:17 07/07/22 21:38 07/07/22 21:38 07/07/22 21:38 07/07/22 21:38 07/07/22 21:38 07/02/22 08:26 Narrative: Const General: cooperative, comfortable, no acute distress, well developed Nutritional Appearance: Morbidly obese Orientation: alert, awake and oriented x3 Limitations: None HEENT Head: normal to inspection, normocephalic and atraumatic Ears: hearing grossly normal bilaterally Nose: external nose normal Face and sinus: normal facial exam Eyes General: appearance normal, both eyes and all related structures. 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 Loss of peripheral vision on the right side due to recent CVA, improving. Pupils: Disconjugate gaze, pupils are reactive to light EOM: EOM intact bilaterally Neck Neck: normal visual inspection, full ROM, no lymphadenopathy and trachea midline Neck mass: No Chest Chest palpation & inspection: normal inspection of the chest Resp Effort & Inspection: normal respiratory effort, able to speak in complete sentences, symmetric chest movement and no cough Auscultation: clear to auscultation bilaterally Cardio Jugular venous pressure: no JVD Rhythm: Regular rhythm and rate GI: Inspection: normal to inspection Palpation: soft, no hepatosplenomegaly and nontender Auscultation: normal bowel sounds Musc Cervical Spine: normal cervical lordosis and cervical ROM normal Thoracic/Lumbar Spine: thoraco-lumbar ROM normal Skin General: no rashes or lesions noted Neuro General: patient alert, oriented x3, left upper extremity weakness, pronator drift, numbness, tingling. Bilateral lower extremity numbness/tingling. Otherwise unremarkable exam. Cranial Nerves: PERRL Speech: speech normal Extrem Other: RUE weakness, paresthesias Psych Appearance: grossly normal Mental Status: WNL Mood: congruent mood Affect: normal affect Speech and Movement: speech and movement normal Attitude: cooperative Insight: Good Judgment: Good Objective Labs 06/30/22 07:46 07/04/22 10:16 Labs: Laboratory Results - last 24 hr 07/07/22 07/07/22 07/07/22 06:04 16:35 17:03 POC Glucose 80 69 84 POC Glucose Comment Will notify dr/rn Will notify dr/rn Medications and Allergies Allergies and Active Meds: Allergies clarithromycin [From Biaxin] Allergy (Verified 06/29/22 17:48) Unknown Reaction metoclopramide [From Reglan] Allergy (Verified 06/29/22 17:48) Unknown Reaction pregabalin [From Lyrica] Allergy (Verified 06/29/22 17:48) Unknown Reaction Sulfa (Sulfonamide Antibiotics) Allergy (Verified 06/29/22 17:48) Unknown Reaction sulfamethoxazole [From Bactrim] Allergy (Verified 06/29/22 17:48) Unknown Reaction trimethoprim [From Bactrim] Allergy (Verified 06/29/22 17:48) Unknown Reaction Active Medications Generic Name Dose Route Start Last Admin Trade Name Freq PRN Reason Stop Dose Admin Acetaminophen 1,000 mg 07/03/22 22:00 07/07/22 21:25 Acetaminophen 500 Mg Tablet PO 07/03/23 21:59 1,000 mg TID AMAN Administration Al Hydrox/Mg Hydrox/Simethicone 30 ml 06/29/22 18:17 Mag Hydrox/Al Hydrox/Simeth 30 Ml Udc PO 06/29/23 18:16 Q4H PRN Indigestion Aspirin 81 mg 06/30/22 09:00 07/07/22 09:11 Aspirin 81 Mg Tab.Chew PO 06/30/23 08:59 81 mg DAILY AMAN Administration Atenolol 25 mg 06/30/22 09:00 07/07/22 09:13 Atenolol *Nf* 25 Mg Tablet PO 06/30/23 08:59 25 mg QAM AMAN Administration Atenolol 50 mg 06/29/22 22:00 07/07/22 21:23 Atenolol *Nf* 25 Mg Tablet PO 06/29/23 21:59 50 mg QHS AMAN Administration Atorvastatin Calcium 80 mg 06/29/22 21:00 07/07/22 21:22 Atorvastatin 80 Mg Tablet PO 06/29/23 20:59 80 mg QPM AMAN Administration Bisacodyl 10 mg 06/29/22 18:17 07/02/22 17:36 Bisacodyl 10 Mg Supp.Rect SD 06/29/23 18:16 10 mg DAILY PRN Administration Constipation Dextrose 0 gm 06/29/22 18:46 Dextrose 50% In Water 25 Gm/50 Ml Syringe IV-PUSH 06/29/23 18:45 PRN PRN Hypoglycemia Diclofenac Sodium 2 gm 06/29/22 18:29 Diclofenac Sodium 1% Gel 100 Gm Tube TOPICAL 06/29/23 18:28 Q6HR PRN Pain Docusate Sodium 100 mg 06/29/22 18:17 07/02/22 08:45 Docusate 100 Mg Capsule PO 06/29/23 18:16 100 mg BID PRN Administration Constipation Docusate Sodium 283 mg 06/29/22 18:17 Docusate Enema 283 Mg/5 Ml Enema SD 06/29/23 18:16 DAILY PRN Constipation Gabapentin 600 mg 07/04/22 21:00 07/07/22 21:22 Gabapentin 600 Mg Tablet PO 07/04/23 20:59 600 mg BID AMAN Administration Glucose 0 gm 06/29/22 18:30 Dextrose 40% Gel 15 Gm Tube PO 06/29/23 18:29 PRN PRN Hypoglycemia Heparin Sodium (Porcine) 5,000 unit 06/30/22 21:00 07/07/22 21:22 Heparin 5,000 Unit/Ml Vial SUBCUT 06/30/23 20:59 5,000 unit Q12HR AMAN Administration Insulin Aspart Prota 70%/Aspart 30% 20 units 06/30/22 09:00 07/07/22 09:17 Insulin Aspart Protamin/Aspart 300 Units/3 Ml Insuln.Pen SUBCUT 06/30/23 08:59 20 units QAM AMAN Administration Insulin Aspart Prota 70%/Aspart 30% 20 units 07/08/22 17:00 Insulin Aspart Protamin/Aspart 300 Units/3 Ml Insuln.Pen SUBCUT 07/08/23 16:59 DAILY.5P AMAN Lactulose 30 gm 06/29/22 18:17 07/02/22 08:46 Lactulose 20 Gm/30 Ml Udc PO 06/29/23 18:16 30 gm DAILY PRN Administration Constipation Levetiracetam 750 mg 06/29/22 21:00 07/07/22 21:22 Levetiracetam 250 Mg Tablet PO 06/29/23 20:59 750 mg BID AMAN Administration Lidocaine 2 patch 07/03/22 16:00 07/07/22 09:13 Lidocaine 4% Adh..Patch TOPICAL 07/03/23 15:59 2 patch DAILY AMAN Administration Liraglutide 1.8 mg 06/30/22 09:00 07/07/22 09:17 Liraglutide 18 Mg/3 Ml Pen.Injctr SUBCUT 06/30/23 08:59 1.8 mg DAILY AMAN Administration Lisinopril 10 mg 07/04/22 09:00 07/07/22 09:11 Lisinopril 10 Mg Tablet PO 07/04/23 08:59 10 mg DAILY AMAN Administration Nystatin 1 applic 06/29/22 22:00 07/07/22 15:08 Nystatin 100,000 Unit/Gram Powder 15 Gm Bottle TOPICAL 06/29/23 21:59 1 applic TID AMAN Administration Omeprazole 40 mg 06/30/22 09:00 07/07/22 09:11 Omeprazole 20 Mg Capsule. PO 06/30/23 08:59 40 mg DAILY AMAN Administration Oxycodone HCl 5 mg 07/03/22 15:59 07/07/22 21:25 Oxycodone Ir 5 Mg Tablet PO 5 mg Q4HR PRN Administration Pain Sennosides 2 tab 06/30/22 12:00 07/04/22 21:29 Sennosides 8.6 Mg Tablet PO 06/30/23 11:59 2 tab DAILY@12 PRN Administration If no BM in 2 days Sodium Chloride 0 ml 06/29/22 18:17 Sodium Chloride 0.9 % 10 Ml Syringe IV-PUSH 06/29/23 18:16 PRN PRN Flush Trazodone HCl 100 mg 07/03/22 15:59 07/07/22 21:22 Trazodone 100 Mg Tablet PO 06/30/23 12:48 100 mg QHS PRN Administration Insomnia Assessment/Plan Assessment/Plan (1) Diabetes: Code(s): E11.9 - Type 2 diabetes mellitus without complications Status: Acute (2) Obesity, morbid, BMI 40.0-49.9: Code(s): E66.01 - Morbid (severe) obesity due to excess calories Status: Acute (3) Hypertension: Code(s): I10 - Essential (primary) hypertension Status: Acute (4) Hyperlipidemia: Code(s): E78.5 - Hyperlipidemia, unspecified Status: Acute (5) Impaired mobility and activities of daily living: Code(s): Z74.09 - Other reduced mobility; Z78.9 - Other specified health status Status: Acute (6) CVA (cerebral vascular accident): Plan: PT to improve pt's strength, endurance, bed mobility, transfers (sit-stand), standing balance, gait quality on level surfaces and stairs, coordination and functional ADL skills. Will also work to improve pt's safety awareness during transfers and ambulation. OT for basic ADL re-training (bathing, dressing, toileting, continence, grooming, feeding, transferring), to increase activity tolerance and functional mobility and to evaluate for adaptive and assistive devices. Will work to improve pt's endurance and educate pt on fall prevention and energy conservationtechniques-pacing strategies and proper breathing techniques during functional tasks. BUSINESS DIVISION CHAIR to evaluate and treat patient?s cognition, language and communication skills, assess swallow function. Patient education Pressure ulcer prophylaxis; encourage mobilization, frequent postural changes, pressure-relief techniques DVT prophylaxis Encourage deep breathing exercise incentive spirometry. Monitor bladder. Toileting schedule. Continue current bladder management, with scans as needed and CIC if needed. Start bowel care program every day to obtain continence, prevent ileus. Maintain fall precautions Gait and balance retraining Provision of the necessary gait aids and functional adaptive equipment to enhance the patient's a functional anabaptism Encourage deep breathing exercises and incentive spirometry RD evaluation Ensure adequate nutrition and hydration Discharge planning. Code(s): I63.9 - Cerebral infarction, unspecified Status: Acute (7) Presence of neurostimulator: Code(s): Z96.82 - Presence of neurostimulator Status: Acute (8) Left hemiplegia: Code(s): G81.94 - Hemiplegia, unspecified affecting left nondominant side Status: Acute Plan This is a 77-year-old female who [facility] to [facility] for functional impairment secondary to suspected CVA. CT/CTA imaging is unremarkable and unable to obtain an MRI due to presence of neurostimulator (apparently spinal cord stimulator and pulse generator were not able to be charged). RepeatCT on 06/27/2022 again did not demonstrate any acute intracranial abnormality. * Decrease insulin a little, blood sugar low normal * OVerall improving, working on LUE * Walking improved, self-care improved. Pressure ulcer prophylaxis; encourage mobilization, frequent postural changes, pressure-relief techniques DVT prophylaxis: Heparin subcu every 12 hours Encourage deep breathing exercise incentive spirometry. Monitor bladder. Toileting schedule. Continue current bladder management, with scans as needed and CIC if needed. Start bowel care program every day to obtain continence, prevent ileus. Maintain fall precautions Gait and balance retraining Functional training and self-care and home management, including activities of daily living and instrumental activities of daily living Provision of the necessary gait aids and functional adaptive equipment to enhance the patient's a functional anabaptism Ensure adequate nutrition and hydration Sleep: Continue trazodone Discharge planning: Home with family next week. Plan: I completed a substantive portion of this encounter, the medical decision makingportion of this note in its entirety, including Allied health note review, nursing note review, claims consultant note review, discussion with nursing and case management, and more than 50% of my time was spent on counseling and coordination of care, time spent 22 minutes Patient was personally seen by me, Dr. Gonzales, on the day of encounter, reviewed the history and the relevant portions of the chart, including current orders, allied health and claims consultant notes, labs/imaging and performed gómez elements of exam and I formulated the plan of care and facilitated the medical decision making. Documented By: Delio Gonzales MD 07/07/222158 Signed By: <Electronically signed by Delio Gonzales MD> 07/07/222200 [facility] Work Phone: [phone] 161-302701-19-2023 Hospital Discharge instructionsAmbulatory Orders* Initiate Home Health Time Frame: 07/06/22, Location: Determined By Patient Additional Instructions -Full Code -Activity: As tolerated, sling PRN for comfort. -Diet: Diabetic, 1800 ADA -Skin Care: Theraworx protect wipes and nystatin powder to left breast three times a day. -Continue to monitor fingerstick blood glucose as you did at home. Your Home Health agency is [facility] ( ). They will usually contact you the day after discharge to schedule a day/time to meet with you at your home to establish care. You have been given prescriptions for new and/or needed medications. These prescriptions are for a one-time fill only, with no re-fills. For further re-fills going forward, you will need to address with your PCP at your follow up appointment, or by calling your PCP s office prior to the prescriptions running out. NOTE: please call within 24 hours if you need to cancel or change any follow up appointments. Arrive early to all follow up appointments, bring current medication list, photo ID and any insurance card(s) to all future follow ups (listed below). Please remember to wear a mask to all appointments. If you develop any symptoms (cough, fever/chills, shortness of breath, sore throat, nausea/vomiting, etc.) please contact your provider's office to inform them prior to your appointment.[facility] Work Phone: [phone] 201-213401-18-2023 Progress note Author Delio Gonzalse [facility] July 05, 2022 2:38pm Note Date/Time July 04, 2022 1 :20pm [facility] [address] [place] [address] Physiatry(Rehab) Progress Note Signed Patient: Chacho Edwards MR#: [id number] : 1945 Acct:[id number] Age/Sex: 77 / F Adm Date: 3 Loc: Room: [address] [place] [address] Type: ADM IN Attending Dr: Delio Gonzales MD Copies to: ~ <Mariposa Martinez APRN - Last Filed: 07/04/22 13:21> Date of Service: 07/04/2022 Subjective <Mariposa Martinez APRN - Last Filed: 07/04/22 13:21> Subjective Narrative: Ms. 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 This past medical history is notable for insulin-dependent diabetes type 2, hypertension, hyperlipidemia, chronic back pain with implanted neurostimulator, morbid obesity and arthritis. Patient presented to the outside facility with complaints of vision loss in the right eye and left hand/weakness and paresthesias. Patient recalls taking her dog out and mis-stepping/tripping when coming back inside the house. She did not sustain a fall but felt like her leg was weak at that time. 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 She thought she was just tired and went to bed. On awakening she also experienced left hand deficits which prompted a call to EMS. In the ER CT of the brain demonstrated chronic microvascular changes and parenchymal volume loss, otherwise unremarkable. CTA notable for origin ofthe right PARTS COUNTERPERSON, no acute abnormality. Unable to obtain the MRI due to presence of neurostimulator. She was noted to have clonic left upper extremity movements and underwent an EEGwhich demonstrated no seizure activity. Neurology initiated the patient p.o. 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 Repeat CT on 06/27/2022 demonstrated ill-defined areas of mildly decreased attenuation involving cerebral white matter bilaterally and within the basal ganglia bilaterally that are nonspecific but thought to be chronic. Neurology however is treating patient's symptoms as clinical stroke. She was initiated on atorvastatin and baby aspirin. Of note, she was also treated for E. coli UTI. Interval history: Patient seen and examined in her room this morning. She is alert and oriented, no acute distress noted. She reports improved sleep last night with pain medications adjustment. Her vital signs remain within normal limits. Blood pressure is back to normal. Continues to tolerate therapy. Requires standby assist for transfers and bed mobility, ambulating 80 feet with a hemiwalker contact-guard assist. Lab work reviewed. <Delio Gonzales MD - Last Filed: 07/05/22 14:38> Subjective Narrative: Ms. 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 This past medical history is notable for insulin-dependent diabetes type 2, hypertension, hyperlipidemia, chronic back pain with implanted neurostimulator, morbid obesity and arthritis. Patient presented to the outside facility with complaints of vision loss in the right eye and left hand/weakness and paresthesias. Patient recalls taking her dog out and mis-stepping/tripping when coming back inside the house. She did not sustain a fall but felt like her leg was weak at that time. 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 She thought she was just tired and went to bed. On awakening she also experienced left hand deficits which prompted a call to EMS. In the ER CT of the brain demonstrated chronic microvascular changes and parenchymal volume loss, otherwise unremarkable. CTA notable for origin ofthe right PARTS COUNTERPERSON, no acute abnormality. Unable to obtain the MRI due to presence of neurostimulator. She was noted to have clonic left upper extremity movements and underwent an EEGwhich demonstrated no seizure activity. Neurology initiated the patient p.o. 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 Repeat CT on 06/27/2022 demonstrated ill-defined areas of mildly decreased attenuation involving cerebral white matter bilaterally and within the basal gangliabilaterally that are nonspecific but thought to be chronic. Neurology however is treating patient's symptoms as clinical stroke. She was initiated on atorvastatin and baby aspirin. Of note, she was also treated for E. coli UTI. Interval history: Continues to improve. Vitals are stable. Progressing well with therapy. Left hemiplegia is resolving. Chronic conditions are stable. Review of Systems <Mariposa Martinez APRN - Last Filed: 07/04/22 13:21> Constitutional Constitutional: Reports as per HPI Eyes Eyes: Reports as per HPI Comments: Blind in the left eye, peripheral vision loss on the right ENT Ears, Nose, Mouth, and Throat: Reports system reviewed and no additional complaints, except as documented Cardiovascular Cardiovascular: Reports system reviewed and no additional complaints, except as documented Respiratory Respiratory: Reports system reviewed and no additional complaints, except as documented Gastrointestinal Gastrointestinal: Reports system reviewed and no additional complaints, except as documented Genitourinary Genitourinary: Reports system reviewed and no additional complaints, except as documented Musculoskeletal Musculoskeletal: Reports abnormal gait, Reports muscle weakness, Reports numbness and Reports tingling Integumentary/Breasts Skin/Breast: Reports system reviewed and no additional complaints, except as documented Neurologic Neurologic: Reports as per HPI, Reports abnormal gait, Reports numbness and Reports tingling Psychiatric Psychiatric: Reports system reviewed and no additional complaints, except as documented Endocrine Endocrine: Reports system reviewed and no additional complaints, except as documented Allergic/Immunologic Allergic/Immunologic: Reports system reviewed and no additional complaints, except as documented Exam <Mariposa Martinez APRN - Last Filed: 07/04/22 13:21> Physical Exam Vital Signs: Temp Pulse Resp BP Pulse Ox O2 Del Method FiO2 97.4 F L 79 20 132/84 96 Room Air 97 07/04/22 05:00 07/04/22 05:00 07/04/22 05:00 07/04/22 05:00 07/04/22 05:00 07/04/22 05:00 07/02/22 08:26 Narrative: Const General: cooperative, comfortable, no acute distress, well developed Nutritional Appearance: Morbidly obese Orientation: alert, awake and oriented x3 Limitations: None HEENT Head: normal to inspection, normocephalic and atraumatic Ears: hearing grossly normal bilaterally Nose: external nose normal Face and sinus: normal facial exam Eyes General: appearance normal, both eyes and all related structures. 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 Loss of peripheral vision on the right side due to recent CVA, improving. Pupils: Disconjugate gaze, pupils are reactive to light EOM: EOM intact bilaterally Neck Neck: normal visual inspection, full ROM, no lymphadenopathy and trachea midline Neck mass: No Chest Chest palpation & inspection: normal inspection of the chest Resp Effort & Inspection: normal respiratory effort, able to speak in complete sentences, symmetric chest movement and no cough Auscultation: clear to auscultation bilaterally Cardio Jugular venous pressure: no JVD Rhythm: Regular rhythm and rate GI: Inspection: normal to inspection Palpation: soft, no hepatosplenomegaly and nontender Auscultation: normal bowel sounds Musc Cervical Spine: normal cervical lordosis and cervical ROM normal Thoracic/Lumbar Spine: thoraco-lumbar ROM normal Skin General: no rashes or lesions noted Neuro General: patient alert, oriented x3, left upper extremity weakness, pronator drift, numbness, tingling. Bilateral lower extremity numbness/tingling. Otherwise unremarkable exam. Cranial Nerves: PERRL Speech: speech normal Extrem Other: RUE weakness, paresthesias Psych Appearance: grossly normal Mental Status: WNL Mood: congruent mood Affect: normal affect Speech and Movement: speech and movement normal Attitude: cooperative Insight: Good Judgment: Good Objective <Mariposa Martinez APRN - Last Filed: 07/04/22 13:21> Labs 06/30/22 07:46 07/04/22 10:16 Labs: Laboratory Results - last 24 hr 07/03/22 07/04/22 07/04/22 16:31 05:32 10:16 PHA Creatinine Clear 38.85 Sodium 138 Potassium 4.5 Chloride 108 Carbon Dioxide 23.2 Anion Gap 11.3 BUN 46 H Creatinine 1.60 H Est GFR ( Amer) 38 Est GFR (Non-Af Amer) 31 Glucose 167 H POC Glucose 84 131 POC Glucose Comment Glu2: cleaned meter Calcium 9.0 Medications and Allergies Allergies and Active Meds: Allergies clarithromycin [From Biaxin] Allergy (Verified 06/29/22 17:48) Unknown Reaction metoclopramide [From Reglan] Allergy (Verified 06/29/22 17:48) Unknown Reaction pregabalin [From Lyrica] Allergy (Verified 06/29/22 17:48) Unknown Reaction Sulfa (Sulfonamide Antibiotics) Allergy (Verified 06/29/22 17:48) Unknown Reaction sulfamethoxazole [From Bactrim] Allergy (Verified 06/29/22 17:48) Unknown Reaction trimethoprim [From Bactrim] Allergy (Verified 06/29/22 17:48) Unknown Reaction Active Medications Generic Name Dose Route Start Last Admin Trade Name Freq PRN Reason Stop Dose Admin Acetaminophen 1,000 mg 07/03/22 22:00 07/04/22 09:28 Acetaminophen 500 Mg Tablet PO 07/03/23 21:59 1,000 mg TID AMAN Administration Al Hydrox/Mg Hydrox/Simethicone 30 ml 06/29/22 18:17 Mag Hydrox/Al Hydrox/Simeth 30 Ml Udc PO 06/29/23 18:16 Q4H PRN Indigestion Aspirin 81 mg 06/30/22 09:00 07/04/22 09:28 Aspirin 81 Mg Tab.Chew PO 06/30/23 08:59 81 mg DAILY AMAN Administration Atenolol 25 mg 06/30/22 09:00 07/04/22 09:30 Atenolol *Nf* 25 Mg Tablet PO 06/30/23 08:59 25 mg QAM AMAN Administration Atenolol 50 mg 06/29/22 22:00 07/03/22 21:04 Atenolol *Nf* 25 Mg Tablet PO 06/29/23 21:59 Not Given QHS AMAN Atorvastatin Calcium 80 mg 06/29/22 21:00 07/03/22 21:03 Atorvastatin 80 Mg Tablet PO 06/29/23 20:59 80 mg QPM AMAN Administration Bisacodyl 10 mg 06/29/22 18:17 07/02/22 17:36 Bisacodyl 10 Mg Supp.Rect SD 06/29/23 18:16 10 mg DAILY PRN Administration Constipation Dextrose 0 gm 06/29/22 18:46 Dextrose 50% In Water 25 Gm/50 Ml Syringe IV-PUSH 06/29/23 18:45 PRN PRN Hypoglycemia Diclofenac Sodium 2 gm 06/29/22 18:29 Diclofenac Sodium 1% Gel 100 Gm Tube TOPICAL 06/29/23 18:28 Q6HR PRN Pain Docusate Sodium 100 mg 06/29/22 18:17 07/02/22 08:45 Docusate 100 Mg Capsule PO 01/12/24 18:16 100 mg BID PRN Administration Constipation Docusate Sodium 283 mg 06/29/22 18:17 Docusate Enema 283 Mg/5 Ml Enema SD 06/29/23 18:16 DAILY PRN Constipation Gabapentin 600 mg 07/04/22 21:00 Gabapentin 600 Mg Tablet PO 07/04/23 20:59 BID AMAN Glucose 0 gm 06/29/22 18:30 Dextrose 40% Gel 15 Gm Tube PO 06/29/23 18:29 PRN PRN Hypoglycemia Heparin Sodium (Porcine) 5,000 unit 06/30/22 21:00 07/04/22 09:29 Heparin 5,000 Unit/Ml Vial SUBCUT 06/30/23 20:59 5,000 unit Q12HR AMAN Administration Insulin Aspart Prota 70%/Aspart 30% 20 units 06/30/22 09:00 07/04/22 09:45 Insulin Aspart Protamin/Aspart 300 Units/3 Ml Insuln.Pen SUBCUT 06/30/23 08:59 20 units QAM AMAN Administration Insulin Aspart Prota 70%/Aspart 30% 25 units 06/29/22 18:48 07/03/22 16:50 Insulin Aspart Protamin/Aspart 300 Units/3 Ml Insuln.Pen SUBCUT 06/29/23 18:47 25 units DAILY.5P AMAN Administration Lactulose 30 gm 06/29/22 18:17 07/02/22 08:46 Lactulose 20 Gm/30 Ml Udc PO 06/29/23 18:16 30 gm DAILY PRN Administration Constipation Levetiracetam 750 mg 06/29/22 21:00 07/04/22 09:29 Levetiracetam 250 Mg Tablet PO 06/29/23 20:59 750 mg BID AMAN Administration Lidocaine 2 patch 07/03/22 16:00 07/04/22 09:28 Lidocaine 4% Adh..Patch TOPICAL 07/03/23 15:59 2 patch DAILY AMAN Administration Liraglutide 1.8 mg 06/30/22 09:00 07/04/22 09:44 Liraglutide 18 Mg/3 Ml Pen.Injctr SUBCUT 06/30/23 08:59 1.8 mg DAILY AMAN Administration Lisinopril 10 mg 07/04/22 09:00 07/04/22 09:29 Lisinopril 10 Mg Tablet PO 07/04/23 08:59 10 mg DAILY AMAN Administration Nystatin 1 applic 06/29/22 22:00 07/04/22 09:30 Nystatin 100,000 Unit/Gram Powder 15 Gm Bottle TOPICAL 06/29/23 21:59 Not Given TID AMAN Omeprazole 40 mg 06/30/22 09:00 07/04/22 09:28 Omeprazole 20 Mg Capsule. PO 06/30/23 08:59 40 mg DAILY AMAN Administration Oxycodone HCl 5 mg 07/03/22 15:59 07/04/22 09:46 Oxycodone Ir 5 Mg Tablet PO 5 mg Q4HR PRN Administration Pain Sennosides 2 tab 06/30/22 12:00 Sennosides 8.6 Mg Tablet PO 06/30/23 11:59 DAILY@12 PRN If no BM in 2 days Sodium Chloride 0 ml 06/29/22 18:17 Sodium Chloride 0.9 % 10 Ml Syringe IV-PUSH 06/29/23 18:16 PRN PRN Flush Trazodone HCl 100 mg 07/03/22 15:59 07/03/22 21:02 Trazodone 100 Mg Tablet PO 06/30/23 12:48 100 mg QHS PRN Administration Insomnia Assessment/Plan <Mariposa Martinez, CRYPTANALYST - Last Filed: 07/04/22 13:21> Assessment/Plan (1) Diabetes: Code(s): E11.9 - Type 2 diabetes mellitus without complications Status: Acute (2) Obesity, morbid, BMI 40.0-49.9: Code(s): E66.01 - Morbid (severe) obesity due to excess calories Status: Acute (3) Hypertension: Code(s): I10 - Essential (primary) hypertension Status: Acute (4) Hyperlipidemia: Code(s): E78.5 - Hyperlipidemia, unspecified Status: Acute (5) Impaired mobility and activities of daily living: Code(s): Z74.09 - Other reduced mobility; Z78.9 - Other specified health status Status: Acute (6) CVA (cerebral vascular accident): Plan: PT to improve pt's strength, endurance, bed mobility, transfers (sit-stand), standing balance, gait quality on level surfaces and stairs, coordination and functional ADL skills. Will also work to improve pt's safety awareness during transfers and ambulation. OT for basic ADL re-training (bathing, dressing, toileting, continence, grooming, feeding, transferring), to increase activity tolerance and functional mobility and to evaluate for adaptive and assistive devices. Will work to improve pt's endurance and educate pt on fall prevention and energy conservationtechniques-pacing strategies and proper breathing techniques during functional tasks. BUSINESS DIVISION CHAIR to evaluate and treat patient?s cognition, language and communication skills, assess swallow function. Patient education Pressure ulcer prophylaxis; encourage mobilization, frequent postural changes, pressure-relief techniques DVT prophylaxis Encourage deep breathing exercise incentive spirometry. Monitor bladder. Toileting schedule. Continue current bladder management, with scans as needed and CIC if needed. Start bowel care program every day to obtain continence, prevent ileus. Maintain fall precautions Gait and balance retraining Provision of the necessary gait aids and functional adaptive equipment to enhance the patient's a functional anabaptism Encourage deep breathing exercises and incentive spirometry RD evaluation Ensure adequate nutrition and hydration Discharge planning. Code(s): I63.9 - Cerebral infarction, unspecified Status: Acute (7) Presence of neurostimulator: Code(s): Z96.82 - Presence of neurostimulator Status: Acute (8) Left hemiplegia: Code(s): G81.94 - Hemiplegia, unspecified affecting left nondominant side Status: Acute Plan Patient education This is a 77-year-old female who presents to [facility] inpatient rehab for functional impairment secondary to suspected CVA. CT/CTA imaging is unremarkable and unable to obtain an MRI due to presence of neurostimulator (apparently spinal cord stimulator and pulse generator were not able to be charged). Repeat CT on 06/27/2022 again did not demonstrate any acute intracranial abnormality. * Renal function trending down, 1.6/46. No complaints. Continue to monitor. * BP stabilized. The rest of the vitals are stable. * Sleep is improved with pain medication adjustments. Trazodone was also uptitrated to 100 mg at hs. Pressure ulcer prophylaxis; encourage mobilization, frequent postural changes, pressure-relief techniques DVT prophylaxis: Heparin subcu every 12 hours Encourage deep breathing exercise incentive spirometry. Monitor bladder. Toileting schedule. Continue current bladder management, with scans as needed and CIC if needed. Start bowel care program every day to obtain continence, prevent ileus. Maintain fall precautions Gait and balance retraining Functional training and self-care and home management, including activities of daily living and instrumental activities of daily living Provision of the necessary gait aids and functional adaptive equipment to enhance the patient's a functional anabaptism Ensure adequate nutrition and hydration Sleep: We will add trazodone Discharge planning: Home with family in 7 to 10 days. I spent greater than 15 minutes for services, including [id number] encounter with the patient, discussion of the case, plan of care, and exam; and [id number] activities, such as reviewing pertinent claims consultant documentation, recent therapy notes, laboratory and radiology studies, and discussion of case with care team including physician, nursing, shell mold bonder, and therapists. More than 50 % of time was spent on patient/family counseling or coordination ofcare. Plan: I completed a substantive portion of this encounter, the medical decision makingportion of this note in its entirety, including Allied health note review, nursing note review, claims consultant note review, discussion with nursing and case management, and more than 50% of my time was spent on counseling and coordination of care, time spent 22 minutes Patient was personally seen by me, Dr. Gonzales, on the day of encounter, reviewed the history and the relevant portions of the chart, including current orders, allied health and claims consultant notes, labs/imaging and performed gómez elements of exam and I formulated the plan of care and facilitated the medical decision making. <Delio Gonzales MD - Last Filed: 07/05/22 14:38> Assessment/Plan (1) Diabetes: (2) Obesity, morbid, BMI 40.0-49.9: (3) Hypertension: (4) Hyperlipidemia: (5) Impaired mobility and activities of daily living: (6) CVA (cerebral vascular accident): Plan: PT to improve pt's strength, endurance, bed mobility, transfers (sit-stand), standing balance, gait quality on level surfaces and stairs, coordination and functional ADL skills. Will also work to improve pt's safety awareness during transfers and ambulation. OT for basic ADL re-training (bathing, dressing, toileting, continence, grooming, feeding, transferring), to increase activity tolerance and functional mobility and to evaluate for adaptive and assistive devices. Will work to improve pt's endurance and educate pt on fall prevention and energy conservationtechniques-pacing strategies and proper breathing techniques during functional tasks. BUSINESS DIVISION CHAIR to evaluate and treat patient?s cognition, language and communication skills, assess swallow function. Patient education Pressure ulcer prophylaxis; encourage mobilization, frequent postural changes, pressure-relief techniques DVT prophylaxis Encourage deep breathing exercise incentive spirometry. Monitor bladder. Toileting schedule. Continue current bladder management, with scans as needed and CIC if needed. Start bowel care program every day to obtain continence, prevent ileus. Maintain fall precautions Gait and balance retraining Provision of the necessary gait aids and functional adaptive equipment to enhance the patient's a functional anabaptism Encourage deep breathing exercises and incentive spirometry RD evaluation Ensure adequate nutrition and hydration Discharge planning. (7) Presence of neurostimulator: (8) Left hemiplegia: Plan This is a 77-year-old female who presents to [facility] inpatient rehab for functional impairment secondary to suspected CVA. CT/CTA imaging is unremarkable and unable to obtain an MRI due to presence of neurostimulator (apparently spinal cord stimulator and pulse generator were not able to be charged). Repeat CT on 06/27/2022 again did not demonstrate any acute intracranial abnormality. * Continue current management. * Ambulating 60 feet with hemiwalker. Able to trial a few stairs today. Min to standby assist for self-care. * Overall improving improving. Pressure ulcer prophylaxis; encourage mobilization, frequent postural changes, pressure-relief techniques DVT prophylaxis: Heparin subcu every 12 hours Encourage deep breathing exercise incentive spirometry. Monitor bladder. Toileting schedule. Continue current bladder management, with scans as needed and CIC if needed. Start bowel care program every day to obtain continence, prevent ileus. Maintain fall precautions Gait and balance retraining Functional training and self-care and home management, including activities of daily living and instrumental activities of daily living Provision of the necessary gait aids and functional adaptive equipment to enhance the patient's a functional anabaptism Ensure adequate nutrition and hydration Sleep: We will add trazodone Discharge planning: Home with family in a week or 2 I spent greater than 15 minutes for services, including [id number] encounter with the patient, discussion of the case, plan of care, and exam; and [id number] activities, such as reviewing pertinent claims consultant documentation, recent therapy notes, laboratory and radiology studies, and discussion of case with care team including physician, nursing, shell mold bonder, and therapists. More than 50 % of time was spent on patient/family counseling or coordination ofcare. Documented By: Mariposa Martinez, ISIDRO 07/04/22 1 314 Signed By: <Electronically signed by ISIDRO Martinez> 07/04/22 1321 <Electronically signed by Delio Gonzales MD> 07/05/22 [id number] [facility] Work Phone: [phone] 299-461801-16-2023 Progress note Author Delio Gonzales [facility] July 03, 2022 2:28pm Note Date/Time July 03, 2022 1 2:33pm [facility] [address] [place] [address] Physiatry(Rehab) Progress Note Signed Patient: Chacho Edwards MR#: [id number] : 1945 Acct:[id number] Age/Sex: 77 / F Adm Date: 3 Loc: Room: 4E5771-9 Type: ADM IN Attending Dr: Delio Gonzales MD Copies to: ~ <Mariposa Martinez APRN - Last Filed: 07/03/22 12:37> Date of Service: 07/03/2022 Subjective <Mariposa Martinez APRN - Last Filed: 07/03/22 12:37> Subjective Narrative: Ms. 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 This past medical history is notable for insulin-dependent diabetes type 2, hypertension, hyperlipidemia, chronic back pain with implanted neurostimulator, morbid obesity and arthritis. Patient presented to the outside facility with complaints of vision loss in the right eye and left hand/weakness and paresthesias. Patient recalls taking her dog out and mis-stepping/tripping when coming back inside the house. She did not sustain a fall but felt like her leg was weak at that time. 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 She thought she was just tired and went to bed. On awakening she also experienced left hand deficits which prompted a call to EMS. In the ER CT of the brain demonstrated chronic microvascular changes and parenchymal volume loss, otherwise unremarkable. CTA notable for origin ofthe right PARTS COUNTERPERSON, no acute abnormality. Unable to obtain the MRI due to presence of neurostimulator. She was noted to have clonic left upper extremity movements and underwent an EEGwhich demonstrated no seizure activity. Neurology initiated the patient p.o. 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 Repeat CT on 06/27/2022 demonstrated ill-defined areas of mildly decreased attenuation involving cerebral white matter bilaterally and within the basal ganglia bilaterally that are nonspecific but thought to be chronic. Neurology however is treating patient's symptoms as clinical stroke. She was initiated on atorvastatin and baby aspirin. Of note, she was also treated for E. coli UTI. Interval history: Patient is sitting up in the chair and eating breakfast during assessment. She is alert and oriented x3, pleasant and talkative. She has no acute complaints. Thinks that her Trickle deficits are gradually improving. Reports vision in the right eye is back to her normal. Left hand strength is improving she is able to lift and hold the arm and has minimal pronator drift. Reports no new numbness or tingling. Blood pressure is softer this morning, she is completely asymptomatic with it. The rest of the vital signs are within normal limits. Working with therapy. She is ambulating 30+35 feet using a hemiwalker, contact-guard/DEP. Was able to ascend/descend 6 stairs with standby/contact- guard assist using bilateral handrails. Review of Systems <Mariposa Martinez APRN - Last Filed: 07/03/22 12:37> Constitutional Constitutional: Reports as per HPI Eyes Eyes: Reports as per HPI Comments: Blind in the left eye, peripheral vision loss on the right ENT Ears, Nose, Mouth, and Throat: Reports system reviewed and no additional complaints, except as documented Cardiovascular Cardiovascular: Reports system reviewed and no additional complaints, except as documented Respiratory Respiratory: Reports system reviewed and no additional complaints, except as documented Gastrointestinal Gastrointestinal: Reports system reviewed and no additional complaints, except as documented Genitourinary Genitourinary: Reports system reviewed and no additional complaints, except as documented Musculoskeletal Musculoskeletal: Reports abnormal gait, Reports muscle weakness, Reports numbness and Reports tingling Integumentary/Breasts Skin/Breast: Reports system reviewed and no additional complaints, except as documented Neurologic Neurologic: Reports as per HPI, Reports abnormal gait, Reports numbness and Reports tingling Psychiatric Psychiatric: Reports system reviewed and no additional complaints, except as documented Endocrine Endocrine: Reports system reviewed and no additional complaints, except as documented Allergic/Immunologic Allergic/Immunologic: Reports system reviewed and no additional complaints, except as documented Exam <Mariposa Martinez APRN - Last Filed: 07/03/22 12:37> Physical Exam Vital Signs: Temp Pulse Resp BP Pulse Ox O2 Del Method FiO2 97.6 F 66 18 90/54 L 98 Room Air 97 07/03/22 05:00 07/03/22 08:56 07/03/22 08:56 07/03/22 08:56 07/03/22 08:56 07/03/22 08:56 07/02/22 08:26 Narrative: Const General: cooperative, comfortable, no acute distress, well developed Nutritional Appearance: Morbidly obese Orientation: alert, awake and oriented x3 Limitations: None HEENT Head: normal to inspection, normocephalic and atraumatic Ears: hearing grossly normal bilaterally Nose: external nose normal Face and sinus: normal facial exam Eyes General: appearance normal, both eyes and all related structures. 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 Loss of peripheral vision on the right side due to recent CVA, improving. Pupils: Disconjugate gaze, pupils are reactive to light EOM: EOM intact bilaterally Neck Neck: normal visual inspection, full ROM, no lymphadenopathy and trachea midline Neck mass: No Chest Chest palpation & inspection: normal inspection of the chest Resp Effort & Inspection: normal respiratory effort, able to speak in complete sentences, symmetric chest movement and no cough Auscultation: clear to auscultation bilaterally Cardio Jugular venous pressure: no JVD Rhythm: Regular rhythm and rate GI: Inspection: normal to inspection Palpation: soft, no hepatosplenomegaly and nontender Auscultation: normal bowel sounds Musc Cervical Spine: normal cervical lordosis and cervical ROM normal Thoracic/Lumbar Spine: thoraco-lumbar ROM normal Skin General: no rashes or lesions noted Neuro General: patient alert, oriented x3, left upper extremity weakness, pronator drift, numbness, tingling. Bilateral lower extremity numbness/tingling. Otherwise unremarkable exam. Cranial Nerves: PERRL Speech: speech normal Extrem Other: RUE weakness, paresthesias Psych Appearance: grossly normal Mental Status: WNL Mood: congruent mood Affect: normal affect Speech and Movement: speech and movement normal Attitude: cooperative Insight: Good Judgment: Good Objective <Mariposa Martinez APRN - Last Filed: 07/03/22 12:37> Labs 06/30/22 07:46 07/03/22 06:06 Labs: Laboratory Results - last 24 hr 07/02/22 07/03/22 07/03/22 16:56 06:06 06:43 PHA Creatinine Clear 35.52 Sodium 139 Potassium 4.0 Chloride 110 Carbon Dioxide 21.6 L Anion Gap 11.4 BUN 49 H Creatinine 1.75 H Est GFR ( Amer) 34 Est GFR (Non-Af Amer) 28 Glucose 99 POC Glucose 283 110 POC Glucose Comment Cleaned meter Calcium 8.4 Medications and Allergies Allergies and Active Meds: Allergies clarithromycin [From Biaxin] Allergy (Verified 06/29/22 17:48) Unknown Reaction metoclopramide [From Reglan] Allergy (Verified 06/29/22 17:48) Unknown Reaction pregabalin [From Lyrica] Allergy (Verified 06/29/22 17:48) Unknown Reaction Sulfa (Sulfonamide Antibiotics) Allergy (Verified 06/29/22 17:48) Unknown Reaction sulfamethoxazole [From Bactrim] Allergy (Verified 06/29/22 17:48) Unknown Reaction trimethoprim [From Bactrim] Allergy (Verified 06/29/22 17:48) Unknown Reaction Active Medications Generic Name Dose Route Start Last Admin Trade Name Freq PRN Reason Stop Dose Admin Acetaminophen 500 mg 06/29/22 18:17 07/01/22 11:14 Acetaminophen 500 Mg Tablet PO 06/29/23 18:16 500 mg Q4H PRN Administration Pain Al Hydrox/Mg Hydrox/Simethicone 30 ml 06/29/22 18:17 Mag Hydrox/Al Hydrox/Simeth 30 Ml Udc PO 06/29/23 18:16 Q4H PRN Indigestion Aspirin 81 mg 06/30/22 09:00 07/03/22 08:52 Aspirin 81 Mg Tab.Chew PO 06/30/23 08:59 81 mg DAILY AMAN Administration Atenolol 25 mg 06/30/22 09:00 07/03/22 08:56 Atenolol *Nf* 25 Mg Tablet PO 06/30/23 08:59 Not Given QAM AMAN Atenolol 50 mg 06/29/22 22:00 07/02/22 20:42 Atenolol *Nf* 25 Mg Tablet PO 06/29/23 21:59 50 mg QHS AMAN Administration Atorvastatin Calcium 80 mg 06/29/22 21:00 07/02/22 20:41 Atorvastatin 80 Mg Tablet PO 06/29/23 20:59 80 mg QPM AMAN Administration Bisacodyl 10 mg 06/29/22 18:17 07/02/22 17:36 Bisacodyl 10 Mg Supp.Rect SD 06/29/23 18:16 10 mg DAILY PRN Administration Constipation Dextrose 0 gm 06/29/22 18:46 Dextrose 50% In Water 25 Gm/50 Ml Syringe IV-PUSH 06/29/23 18:45 PRN PRN Hypoglycemia Diclofenac Sodium 2 gm 06/29/22 18:29 Diclofenac Sodium 1% Gel 100 Gm Tube TOPICAL 06/29/23 18:28 Q6HR PRN Pain Docusate Sodium 100 mg 06/29/22 18:17 07/02/22 08:45 Docusate 100 Mg Capsule PO 06/29/23 18:16 100 mg BID PRN Administration Constipation Docusate Sodium 283 mg 06/29/22 18:17 Docusate Enema 283 Mg/5 Ml Enema SD 06/29/23 18:16 DAILY PRN Constipation Gabapentin 800 mg 06/29/22 21:00 07/03/22 08:52 Gabapentin 800 Mg Tablet PO 06/29/23 20:59 800 mg BID AMAN Administration Glucose 0 gm 06/29/22 18:30 Dextrose 40% Gel 15 Gm Tube PO 06/29/23 18:29 PRN PRN Hypoglycemia Heparin Sodium (Porcine) 5,000 unit 06/30/22 21:00 07/03/22 08:52 Heparin 5,000 Unit/Ml Vial SUBCUT 06/30/23 20:59 5,000 unit Q12HR AMAN Administration Insulin Aspart Prota 70%/Aspart 30% 20 units 06/30/22 09:00 07/03/22 08:52 Insulin Aspart Protamin/Aspart 300 Units/3 Ml Insuln.Pen SUBCUT 06/30/23 08:59 20 units QAM AMAN Administration Insulin Aspart Prota 70%/Aspart 30% 25 units 06/29/22 18:48 07/02/22 17:02 Insulin Aspart Protamin/Aspart 300 Units/3 Ml Insuln.Pen SUBCUT 06/29/23 18:47 25 units DAILY.5P AMAN Administration Lactulose 30 gm 06/29/22 18:17 07/02/22 08:46 Lactulose 20 Gm/30 Ml Udc PO 06/29/23 18:16 30 gm DAILY PRN Administration Constipation Levetiracetam 750 mg 06/29/22 21:00 07/03/22 08:52 Levetiracetam 250 Mg Tablet PO 06/29/23 20:59 750 mg BID AMAN Administration Liraglutide 1.8 mg 06/30/22 09:00 07/03/22 08:52 Liraglutide 18 Mg/3 Ml Pen.Injctr SUBCUT 06/30/23 08:59 1.8 mg DAILY AMAN Administration Lisinopril 10 mg 07/04/22 09:00 Lisinopril 10 Mg Tablet PO 07/04/23 08:59 DAILY AMAN Nystatin 1 applic 06/29/22 22:00 07/03/22 08:53 Nystatin 100,000 Unit/Gram Powder 15 Gm Bottle TOPICAL 06/29/23 21:59 1 applic TID AMAN Administration Omeprazole 40 mg 06/30/22 09:00 07/03/22 08:52 Omeprazole 20 Mg Capsule.Dr PO 06/30/23 08:59 40 mg DAILY AMAN Administration Oxycodone HCl 5 mg 07/01/22 14:39 07/03/22 06:31 Oxycodone Ir 5 Mg Tablet PO 5 mg Q6HR PRN Administration Pain Sennosides 2 tab 06/30/22 12:00 Sennosides 8.6 Mg Tablet PO 06/30/23 11:59 DAILY@12 PRN If no BM in 2 days Sodium Chloride 0 ml 06/29/22 18:17 Sodium Chloride 0.9 % 10 Ml Syringe IV-PUSH 06/29/23 18:16 PRN PRN Flush Trazodone HCl 50 mg 06/30/22 12:49 07/02/22 20:42 Trazodone 50 Mg Tablet PO 06/30/23 12:48 50 mg QHS PRN Administration Insomnia Assessment/Plan <Mariposa Martinez, CRYPTANALYST - Last Filed: 07/03/22 12:37> Assessment/Plan (1) Diabetes: Code(s): E11.9 - Type 2 diabetes mellitus without complications Status: Acute (2) Obesity, morbid, BMI 40.0-49.9: Code(s): E66.01 - Morbid (severe) obesity due to excess calories Status: Acute (3) Hypertension: Code(s): I10 - Essential (primary) hypertension Status: Acute (4) Hyperlipidemia: Code(s): E78.5 - Hyperlipidemia, unspecified Status: Acute (5) Impaired mobility and activities of daily living: Code(s): Z74.09 - Other reduced mobility; Z78.9 - Other specified health status Status: Acute (6) CVA (cerebral vascular accident): Plan: PT to improve pt's strength, endurance, bed mobility, transfers (sit-stand), standing balance, gait quality on level surfaces and stairs, coordination and functional ADL skills. Will also work to improve pt's safety awareness during transfers and ambulation. OT for basic ADL re-training (bathing, dressing, toileting, continence, grooming, feeding, transferring), to increase activity tolerance and functional mobility and to evaluate for adaptive and assistive devices. Will work to improve pt's endurance and educate pt on fall prevention and energy conservationtechniques-pacing strategies and proper breathing techniques during functional tasks. BUSINESS DIVISION CHAIR to evaluate and treat patient?s cognition, language and communication skills, assess swallow function. Patient education Pressure ulcer prophylaxis; encourage mobilization, frequent postural changes, pressure-relief techniques DVT prophylaxis Encourage deep breathing exercise incentive spirometry. Monitor bladder. Toileting schedule. Continue current bladder management, with scans as needed and CIC if needed. Start bowel care program every day to obtain continence, prevent ileus. Maintain fall precautions Gait and balance retraining Provision of the necessary gait aids and functional adaptive equipment to enhance the patient's a functional anabaptism Encourage deep breathing exercises and incentive spirometry RD evaluation Ensure adequate nutrition and hydration Discharge planning. Code(s): I63.9 - Cerebral infarction, unspecified Status: Acute (7) Presence of neurostimulator: Code(s): Z96.82 - Presence of neurostimulator Status: Acute (8) Left hemiplegia: Code(s): G81.94 - Hemiplegia, unspecified affecting left nondominant side Status: Acute Plan Patient education This is a 77-year-old female who presents to [facility] rehab for functional impairment secondary to suspected CVA. CT/CTA imaging is unremarkable and unable to obtain an MRI due to presence of neurostimulator (apparently spinal cord stimulator and pulse generator were not able to be charged). Repeat CT on 06/27/2022 again did not demonstrate any acute intracranial abnormality. * Repeat blood work reviewed. Renal function is trending up, 1.75/49 from 1.21/26. Patient does not have any discomfort s but reports dribbling and hesitancy with urination. PRN bladder scans ordered. Consider urinalysis. * Trend vitals. Noted to be hypotensive this morning. Lisinopril dose decreased to 10 mg daily. Hold BP meds if persistently hypotensive or symptomatic. * Progressing towards functional goals in therapy. Pressure ulcer prophylaxis; encourage mobilization, frequent postural changes, pressure-relief techniques DVT prophylaxis: Heparin subcu every 12 hours Encourage deep breathing exercise incentive spirometry. Monitor bladder. Toileting schedule. Continue current bladder management, with scans as needed and CIC if needed. Start bowel care program every day to obtain continence, prevent ileus. Maintain fall precautions Gait and balance retraining Functional training and self-care and home management, including activities of daily living and instrumental activities of daily living Provision of the necessary gait aids and functional adaptive equipment to enhance the patient's a functional anabaptism Ensure adequate nutrition and hydration Sleep: We will add trazodone Discharge planning: Home with family in 7 to 10 days. I spent greater than 15 minutes for services, including [id number] encounter with the patient, discussion of the case, plan of care, and exam; and [id number] activities, such as reviewing pertinent claims consultant documentation, recent therapy notes, laboratory and radiology studies, and discussion of case with care team including physician, nursing, shell mold bonder, and therapists. More than 50 % of time was spent on patient/family counseling or coordination ofcare. <Delio Gonzales MD - Last Filed: 07/03/22 14:28> Assessment/Plan (1) Diabetes: (2) Obesity, morbid, BMI 40.0-49.9: (3) Hypertension: (4) Hyperlipidemia: (5) Impaired mobility and activities of daily living: (6) CVA (cerebral vascular accident): Plan: PT to improve pt's strength, endurance, bed mobility, transfers (sit-stand), standing balance, gait quality on level surfaces and stairs, coordination and functional ADL skills. Will also work to improve pt's safety awareness during transfers and ambulation. OT for basic ADL re-training (bathing, dressing, toileting, continence, grooming, feeding, transferring), to increase activity tolerance and functional mobility and to evaluate for adaptive and assistive devices. Will work to improve pt's endurance and educate pt on fall prevention and energy conservation techniques-pacing strategies and proper breathing techniques during functional tasks. BUSINESS DIVISION CHAIR to evaluate and treat patient?s cognition, language and communication skills, assess swallow function. Patient education Pressure ulcer prophylaxis; encourage mobilization, frequent postural changes, pressure-relief techniques DVT prophylaxis Encourage deep breathing exercise incentive spirometry. Monitor bladder. Toileting schedule. Continue current bladder management, with scans as needed and CIC if needed. Start bowel care program every day to obtain continence, prevent ileus. Maintain fall precautions Gait and balance retraining Provision of the necessary gait aids and functional adaptive equipment to enhance the patient's a functional anabaptism Encourage deep breathing exercises and incentive spirometry RD evaluation Ensure adequate nutrition and hydration Discharge planning. (7) Presence of neurostimulator: (8) Left hemiplegia: Plan: I completed a substantive portion of this encounter, the medical decision makingportion of this note in its entirety, including Allied health note review, nursing note review, claims consultant note review, discussion with nursing and case management, and more than 50% of my time was spent on counseling and coordination of care, time spent 22 minutes Patient was personally seen by me, Dr. Gonzales, on the day of encounter, reviewed the history and the relevant portions of the chart, including current orders, allied health and claims consultant notes, labs/imaging and performed gómez elements of exam and I formulated the plan of care and facilitated the medical decision making. Documented By: Mariposa Martinez APRN 07/03/22 1 224 Signed By: <Electronically signed by ISIDRO Martinez> 07/03/22 1237 <Electronically signed by Delio Gonzales MD> 07/03/22 6749 [facility] Work Phone: 1([phone] 904-822001-14-2023 Consult note Author Bhavesh Gonzalez [facility] July 01, 2022 7:41am Note Date/Time June 30, 2022 5 :00pm [facility] [address] [place] [address] Hospitalist Consult Note Signed Patient: Chacho Edwards MR#: [id number] : 1945 Acct:[id number] Age/Sex: 77 / F Adm Date: 3 Loc: Room: 5L8112-6 Type: ADM IN Attending Dr: Delio Gonzales MD Copies to: MD Delio Monsivais MD Linda Obika, APRN Mazhar Rahman, MD~ HPI DATE OF CONSULTATION: 06/30/22 REQUESTING PROVIDER: Delio Gonzales Consult Narrative Reason for Consult: DM 2, HTN, HLD, CVA, chronic back pain, morbid obesity, arthritis HPI: Patient is a 77-year-old female with past medical history insulin-dependent type2 diabetes, hypertension, hyperlipidemia, chronic back pain, morbid obesity, arthritis who presented to an outside facility with complaints of vision loss inthe right and left hand/weakness and paresthesias. Upon arrival in the ED, CT head was nonacute for acute intracranial abnormality. CTA did not show any acute abnormality. MRI was unable to be obtained due to presence of neurostimulator. She was noted to have clonic left upper extremity movement andunderwent an EEG which was negative for any seizure activity. 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 Repeat CT on 06/27/2022 demonstrated ill-defined areas of mildly decreased attenuation involving cerebral white matter bilaterally and with the basal ganglia bilaterally that are nonspecific but thought to be chronic. Neurology advised treating patient's symptoms as clinical stroke and was initiated on atorvastatin and 81 mg aspirin. Patient was also treated for E. coli UTI. Patient was seen and evaluated by PT/OT and recommended for inpatientrehabilitation. The hospitalist team is being consulted for medical management of type 2 diabetes, hypertension and all other comorbidities Patient seen and examined. Reports tolerating physical therapy well. Has intermittent tingling to her left upper extremity and reports that her right eyevision is improving. Denies chest pain or palpitation. No cough, dyspnea, or pain with inspiration. No abdominal pain or indigestion, constipation or diarrhea, nausea or vomiting. No dysuria or retention. No headache or dizziness. No fevers. Discussed renal function with her and encourage increased p.o. intake. Review of Systems Review of Systems Review of systems: 10 point review of systems obtained, negative unless noted in the HPI below [facility] Attestation Statement: The following information was validated with the patient. Source: Old Records Reviewed Vaccinated for COVID-19?: Yes Social History Smoking Status: Never smoker Substance Use Type: None Meds Medications and Allergies Allergies clarithromycin [From Biaxin] Allergy (Verified 06/29/22 17:48) Unknown Reaction metoclopramide [From Reglan] Allergy (Verified 06/29/22 17:48) Unknown Reaction pregabalin [From Lyrica] Allergy (Verified 06/29/22 17:48) Unknown Reaction Sulfa (Sulfonamide Antibiotics) Allergy (Verified 06/29/22 17:48) Unknown Reaction sulfamethoxazole [From Bactrim] Allergy (Verified 06/29/22 17:48) Unknown Reaction trimethoprim [From Bactrim] Allergy (Verified 06/29/22 17:48) Unknown Reaction Active Medications: Active Medications Generic Name Dose Route Start Last Admin Trade Name Freq PRN Reason Stop Dose Admin Acetaminophen 500 mg 06/29/22 18:17 Acetaminophen 500 Mg Tablet PO 06/29/23 18:16 Q4H PRN Pain Al Hydrox/Mg Hydrox/Simethicone 30 ml 06/29/22 18:17 Mag Hydrox/Al Hydrox/Simeth 30 Ml Udc PO 06/29/23 18:16 Q4H PRN Indigestion Aspirin 81 mg 06/30/22 09:00 06/30/22 08:37 Aspirin 81 Mg Tab.Chew PO 06/30/23 08:59 81 mg DAILY AMAN Administration Atenolol 25 mg 06/30/22 09:00 06/30/22 08:37 Atenolol *Nf* 25 Mg Tablet PO 06/30/23 08:59 25 mg QAM AMAN Administration Atenolol 50 mg 06/29/22 22:00 06/29/22 21:04 Atenolol *Nf* 25 Mg Tablet PO 06/29/23 21:59 50 mg QHS AMAN Administration Atorvastatin Calcium 80 mg 06/29/22 21:00 06/29/22 21:04 Atorvastatin 80 Mg Tablet PO 06/29/23 20:59 80 mg QPM AMAN Administration Bisacodyl 10 mg 06/29/22 18:17 Bisacodyl 10 Mg Supp.Rect SD 06/29/23 18:16 DAILY PRN Constipation Dextrose 0 gm 06/29/22 18:46 Dextrose 50% In Water 25 Gm/50 Ml Syringe IV-PUSH 06/29/23 18:45 PRN PRN Hypoglycemia Diclofenac Sodium 2 gm 06/29/22 18:29 Diclofenac Sodium 1% Gel 100 Gm Tube TOPICAL 06/29/23 18:28 Q6HR PRN Pain Docusate Sodium 100 mg 06/29/22 18:17 06/30/22 08:37 Docusate 100 Mg Capsule PO 06/29/23 18:16 100 mg BID PRN Administration Constipation Docusate Sodium 283 mg 06/29/22 18:17 Docusate Enema 283 Mg/5 Ml Enema SD 06/29/23 18:16 DAILY PRN Constipation Gabapentin 800 mg 06/29/22 21:00 06/30/22 08:37 Gabapentin 800 Mg Tablet PO 06/29/23 20:59 800 mg BID AMAN Administration Glucose 0 gm 06/29/22 18:30 Dextrose 40% Gel 15 Gm Tube PO 06/29/23 18:29 PRN PRN Hypoglycemia Heparin Sodium (Porcine) 5,000 unit 06/30/22 21:00 Heparin 5,000 Unit/Ml Vial SUBCUT 06/30/23 20:59 Q12HR [facility] Insulin Aspart Prota 70%/Aspart 30% 20 units 06/30/22 09:00 06/30/22 08:38 Insulin Aspart Protamin/Aspart 300 Units/3 Ml Insuln.Pen SUBCUT 06/30/23 08:59 20 units QAM [facility] Administration Insulin Aspart Prota 70%/Aspart 30% 25 units 06/29/22 18:48 06/29/22 22:03 Insulin Aspart Protamin/Aspart 300 Units/3 Ml Insuln.Pen SUBCUT 06/29/23 18:47 Not Given DAILY.5P AMAN Lactulose 30 gm 06/29/22 18:17 Lactulose 20 Gm/30 Ml Udc PO 06/29/23 18:16 DAILY PRN Constipation Levetiracetam 750 mg 06/29/22 21:00 06/30/22 08:37 Levetiracetam 250 Mg Tablet PO 06/29/23 20:59 750 mg BID AMAN Administration Liraglutide 1.8 mg 06/30/22 09:00 06/30/22 08:37 Liraglutide 18 Mg/3 Ml Pen.Injctr SUBCUT 06/30/23 08:59 1.8 mg DAILY AMAN Administration Lisinopril 20 mg 06/30/22 09:00 06/30/22 08:37 Lisinopril 20 Mg Tablet PO 06/30/23 08:59 20 mg DAILY AMAN Administration Nystatin 1 applic 06/29/22 22:00 06/30/22 13:59 Nystatin 100,000 Unit/Gram Powder 15 Gm Bottle TOPICAL 06/29/23 21:59 1 applic TID AMAN Administration Omeprazole 40 mg 06/30/22 09:00 06/30/22 08:37 Omeprazole 20 Mg Capsule.Dr PO 06/30/23 08:59 40 mg DAILY AMAN Administration Oxycodone HCl 2.5 mg 06/29/22 18:22 06/30/22 14:13 Oxycodone Ir 5 Mg Tablet PO 2.5 mg Q12HR PRN Administration Pain Sennosides 2 tab 06/30/22 12:00 Sennosides 8.6 Mg Tablet PO 06/30/23 11:59 DAILY@12 PRN If no BM in 2 days Sodium Chloride 0 ml 06/29/22 18:17 Sodium Chloride 0.9 % 10 Ml Syringe IV-PUSH 06/29/23 18:16 PRN PRN Flush Trazodone HCl 50 mg 06/30/22 12:49 Trazodone 50 Mg Tablet PO 06/30/23 12:48 QHS PRN Insomnia Exam Physical Exam Vital Signs: Temp Pulse Resp BP Pulse Ox O2 Del Method 97.5 F L 67 18 106/73 99 Room Air 06/30/22 15:17 06/30/22 15:17 06/30/22 15:17 06/30/22 15:17 06/30/22 15:17 06/30/22 15:17 Narrative: CONST- Appears well -obese no acute distress. HEAD - Normocephalic and atraumatic EENT-Sclera nonicteric and conjunctive are nonerythemic, moist oral mucosa, pharynx clear NECK-Supple, no cervical lymphadenopathy CARDIAC-normal rate, regular rhythm, normal S1 & S2. PULM-diminished without wheeze or rhonchi, RA, no accessory muscle use or cough noted ABD - Soft. Obese bowel sounds are normal. No tenderness EXTREM-no edema BLE calves nontender SKIN-scattered bruising [id number] weakness NEURO- A&Ox3 speech clear and tongue midline, equal facial symmetry no focal motor deficits PSYCH-Mood, affect and behavior appropriate Results Lab Results Labs: Laboratory Results - last 72 hr 06/30/22 07:46: PHA Creatinine Clear 51.34, Sodium 137, Potassium 4.1, Chloride 107, Carbon Dioxide 22.7, Anion Gap 11.4, BUN 26 H, Creatinine 1.21 H, Est GFR ( Amer) 52, Est GFR (Non-Af Amer) 43, Glucose 141 H, Calcium 8.8, Total Bilirubin 1.0, AST 19, ALT 16, Alkaline Phosphatase 127 H, Total Protein 5.9 L, Albumin 3.3, Globulin 2.6, Albumin/Globulin Ratio 1.3, Prealbumin 24.2 06/30/22 07:46: Corrected WBC 7.1, Uncorrected WBC Count 7.1, RBC 4.56, Hgb 13.7, Hct 42.3, MCV 92.7, MCH 29.9, MCHC 32.3, RDW 13.5, Plt Count 201, MPV 9.0,Neut % (Auto) 66.3, Lymph % (Auto) 20.2, Person % (Auto) 10.3, Eos % (Auto) 2.7, Baso % (Auto) 0.5, Nucleat RBC Rel Count 0.2, Neut # (Auto) 4.7, Lymph # (Auto) 1.4, Person # (Auto) 0.7, Eos # (Auto) 0.2, Baso # (Auto) 0.0 06/30/22 06:23: POC Glucose 141 A&P - Hospitalist Assessment/Plan (1) CVA (cerebral vascular accident): (2) Left hemiplegia: (3) Impaired mobility and activities of daily living: Plan CVA (cerebrovascular accident)/left hemiaplasia Impaired mobility and activities of daily living ?Plan of care for rehabilitation for PT/OT, DVT prophylaxis, bowel regimen per PM&R team ?On aspirin and atorvastatin Elevated creatinine ?Creatinine 1.21 baseline unknown, ? F/U BMP on Sunday Chronic conditions 1. Type 2 diabetes?controlled on NovoLog 70/30 20 units every morning and 25 units at daily 5 PM 2. Hypertension?controlled on atenolol and lisinopril 3. Hyperlipidemia?on atorvastatin 4. Chronic back pain?has neurostimulator 5. Obesity Documented By: Kat Barry APRN 06/30/22 [id number] Signed By: <Electronically signed by ISIDRO Barry> 06/30/22 1722 <Electronically signed by Bhavesh Gonzalez MD> 07/01/22 0741 [facility] Work Phone: 1(104) 652-624201-13-2023 History and physical note Author Delio Gonzales [facility] June 30, 2022 3:11pm Note Date/Time June 30, 2022 1 1:48am [facility] [address] [place] [address] Physiatry (Rehab) H&P Signed Patient: Chacho Edwards MR#: [id number] : 1945 Acct:[id number] Age/Sex: 77 / F Adm Date: 3 Loc: Room: [address] [place] [address] Type: ADM IN Attending Dr: Delio Gonzales MD Copies to: ISIDRO Hu MD Joseph Riley, MD~ <Mariposa Martinez APRN - Last Filed: 06/30/22 12:48> Date of Service: 06/30/2022 HPI <Mariposa Martinez APRN - Last Filed: 06/30/22 12:48> The patient was seen and examined on: 06/30/22 History of Present Illness: Ms. 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 This past medical history is notable for insulin-dependent diabetes type 2, hypertension, hyperlipidemia, chronic back pain with implanted neurostimulator, morbid obesity and arthritis. Patient presented to the outside facility with complaints of vision loss in the right eye and left hand/weakness and paresthesias. Patient recalls taking her dog out and mis-stepping/tripping when coming back inside the house. She did not sustain a fall but felt like her leg was weak at that time. 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 She thought she was just tired and went to bed. On awakening she also experienced left hand deficits which prompted a call to EMS. In the ER CT of the brain demonstrated chronic microvascular changes and parenchymal volume loss, otherwise unremarkable. CTA notable for origin ofthe right PARTS COUNTERPERSON, no acute abnormality. Unable to obtain the MRI due to presence of neurostimulator. She was noted to have clonic left upper extremity movements and underwent an EEGwhich demonstrated no seizure activity. Neurology initiated the patient p.o. 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 Repeat CT on 06/27/2022 demonstrated ill-defined areas of mildly decreased attenuation involving cerebral white matter bilaterally and within the basal ganglia bilaterally that are nonspecific but thought to be chronic. Neurology however is treating patient's symptoms as clinical stroke. She was initiated on atorvastatin and baby aspirin. Of note, she was also treated for E. coli UTI. Admission to rehab patient notes that her deficits are improving. She is able to lift and hold left arm against gravity, although does demonstrate pronator drift and weaker hand grasp on the left. She also reports right eye peripheral vision loss but states that it has improved significantly in the last few days. Some bilateral lower extremity numbness/tingling. No dizziness, lightheadednessor headaches. Does have chronic neck and pain. PMFSH <Mariposa Martinez APRN - Last Filed: 06/30/22 12:48> Vaccinated for COVID-19?: Yes Social History Smoking Status: Never smoker Substance Use Type: None Review of Systems <Mariposa Martinez APRN - Last Filed: 06/30/22 12:48> Constitutional Constitutional: Reports as per HPI Eyes Eyes: Reports as per HPI Comments: Blind in the left eye, peripheral vision loss on the right ENT Ears, Nose, Mouth, and Throat: Reports system reviewed and no additional complaints, except as documented Cardiovascular Cardiovascular: Reports system reviewed and no additional complaints, except as documented Respiratory Respiratory: Reports system reviewed and no additional complaints, except as documented Gastrointestinal Gastrointestinal: Reports system reviewed and no additional complaints, except as documented Genitourinary Genitourinary: Reports system reviewed and no additional complaints, except as documented Musculoskeletal Musculoskeletal: Reports abnormal gait, Reports muscle weakness, Reports numbness and Reports tingling Integumentary/Breasts Skin/Breast: Reports system reviewed and no additional complaints, except as documented Neurologic Neurologic: Reports as per HPI Psychiatric Psychiatric: Reports system reviewed and no additional complaints, except as documented Endocrine Endocrine: Reports system reviewed and no additional complaints, except as documented Allergic/Immunologic Allergic/Immunologic: Reports system reviewed and no additional complaints, except as documented Meds <Mariposa Martinez APRN - Last Filed: 06/30/22 12:48> Medications and Allergies Allergies clarithromycin [From Biaxin] Allergy (Verified 06/29/22 17:48) Unknown Reaction metoclopramide [From Reglan] Allergy (Verified 06/29/22 17:48) Unknown Reaction pregabalin [From Lyrica] Allergy (Verified 06/29/22 17:48) Unknown Reaction Sulfa (Sulfonamide Antibiotics) Allergy (Verified 06/29/22 17:48) Unknown Reaction sulfamethoxazole [From Bactrim] Allergy (Verified 06/29/22 17:48) Unknown Reaction trimethoprim [From Bactrim] Allergy (Verified 06/29/22 17:48) Unknown Reaction Home and Active Meds: Active Medications Acetaminophen (Acetaminophen 500 Mg Tablet) 500 mg PO Q4H PRN PRN Reason: Pain Stop: 06/29/23 18:16 Al Hydrox/Mg Hydrox/Simethicone (Mag Hydrox/Al Hydrox/Simeth 30 Ml Udc) 30 ml PO Q4H PRN PRN Reason: Indigestion Stop: 06/29/23 18:16 Aspirin (Aspirin 81 Mg Tab.Chew) 81 mg PO DAILY AMAN Stop: 06/30/23 08:59 Last Admin: 06/30/22 08:37 Dose: 81 mg Atenolol (Atenolol *Nf* 25 Mg Tablet) 25 mg PO QAM AMAN Stop: 06/30/23 08:59 Last Admin: 06/30/22 08:37 Dose: 25 mg Atenolol (Atenolol *Nf* 25 Mg Tablet) 50 mg PO QHS AMAN Stop: 06/29/23 21:59 Last Admin: 06/29/22 21:04 Dose: 50 mg Atorvastatin Calcium (Atorvastatin 80 Mg Tablet) 80 mg PO QPM AMAN Stop: 06/29/23 20:59 Last Admin: 06/29/22 21:04 Dose: 80 mg Bisacodyl (Bisacodyl 10 Mg Supp.Rect) 10 mg SD DAILY PRN PRN Reason: Constipation Stop: 06/29/23 18:16 Dextrose (Dextrose 50% In Water 25 Gm/50 Ml Syringe) 0 gm IV-PUSH PRN PRN PRN Reason: Hypoglycemia Stop: 06/29/23 18:45 Diclofenac Sodium (Diclofenac Sodium 1% Gel 100 Gm Tube) 2 gm TOPICAL Q6HR PRN PRN Reason: Pain Stop: 06/29/23 18:28 Docusate Sodium (Docusate 100 Mg Capsule) 100 mg PO BID PRN PRN Reason: Constipation Stop: 06/29/23 18:16 Last Admin: 06/30/22 08:37 Dose: 100 mg Docusate Sodium (Docusate Enema 283 Mg/5 Ml Enema) 283 mg SD DAILY PRN PRN Reason: Constipation Stop: 06/29/23 18:16 Gabapentin (Gabapentin 800 Mg Tablet) 800 mg PO BID [facility] Stop: 06/29/23 20:59 Last Admin: 06/30/22 08:37 Dose: 800 mg Glucose (Dextrose 40% Gel 15 Gm Tube) 0 gm PO PRN PRN PRN Reason: Hypoglycemia Stop: 06/29/23 18:29 Heparin Sodium (Porcine) (Heparin 5,000 Unit/Ml Vial) 5,000 unit SUBCUT Q12HR [facility] Stop: 06/30/23 20:59 Insulin Aspart Prota 70%/Aspart 30% (Insulin Aspart Protamin/Aspart 300 Units/3 Ml Insuln.Pen) 20 units SUBCUT QAM [facility] Stop: 06/30/23 08:59 Last Admin: 06/30/22 08:38 Dose: 20 units Insulin Aspart Prota 70%/Aspart 30% (Insulin Aspart Protamin/Aspart 300 Units/3 Ml Insuln.Pen) 25 units SUBCUT DAILY.5P [facility] Stop: 06/29/23 18:47 Last Admin: 06/29/22 22:03 Dose: Not Given Lactulose (Lactulose 20 Gm/30 Ml Udc) 30 gm PO DAILY PRN PRN Reason: Constipation Stop: 06/29/23 18:16 Levetiracetam (Levetiracetam 250 Mg Tablet) 750 mg PO BID [facility] Stop: 06/29/23 20:59 Last Admin: 06/30/22 08:37 Dose: 750 mg Liraglutide (Liraglutide 18 Mg/3 Ml Pen.Injctr) 1.8 mg SUBCUT DAILY [facility] Stop: 06/30/23 08:59 Last Admin: 06/30/22 08:37 Dose: 1.8 mg Lisinopril (Lisinopril 20 Mg Tablet) 20 mg PO DAILY [facility] Stop: 06/30/23 08:59 Last Admin: 06/30/22 08:37 Dose: 20 mg Nystatin (Nystatin 100,000 Unit/Gram Powder 15 Gm Bottle) 1 applic TOPICAL TID [facility] Stop: 06/29/23 21:59 Last Admin: 06/30/22 08:38 Dose: 1 applic Omeprazole (Omeprazole 20 Mg Capsule.Dr) 40 mg PO DAILY AMAN Stop: 06/30/23 08:59 Last Admin: 06/30/22 08:37 Dose: 40 mg Oxycodone HCl (Oxycodone Ir 5 Mg Tablet) 2.5 mg PO Q12HR PRN PRN Reason: Pain Sennosides (Sennosides 8.6 Mg Tablet) 2 tab PO DAILY@12 PRN PRN Reason: If no BM in 2 days Stop: 06/30/23 11:59 Sodium Chloride (Sodium Chloride 0.9 % 10 Ml Syringe) 0 ml IV-PUSH PRN PRN PRN Reason: Flush Stop: 06/29/23 18:16 Exam <Mariposa Martinez APRN - Last Filed: 06/30/22 12:48> Physical Exam Vital Signs: Temp Pulse Resp BP Pulse Ox O2 Del Method 98.3 F 74 18 115/78 95 Room Air 06/30/22 08:35 06/30/22 08:35 06/30/22 08:35 06/30/22 08:35 06/30/22 08:35 06/30/22 10:09 Narrative: Const General: cooperative, comfortable, no acute distress, well developed Nutritional Appearance: Morbidly obese Orientation: alert, awake and oriented x3 Limitations: None HEENT Head: normal to inspection, normocephalic and atraumatic Ears: hearing grossly normal bilaterally Nose: external nose normal Face and sinus: normal facial exam Eyes General: appearance normal, both eyes and all related structures. 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 Loss of peripheral vision on the right side due to recent CVA, improving. Pupils: Disconjugate gaze, pupils are reactive to light EOM: EOM intact bilaterally Neck Neck: normal visual inspection, full ROM, no lymphadenopathy and trachea midline Neck mass: No Chest Chest palpation & inspection: normal inspection of the chest Resp Effort & Inspection: normal respiratory effort, able to speak in complete sentences, symmetric chest movement and no cough Auscultation: clear to auscultation bilaterally Cardio Jugular venous pressure: no JVD Rhythm: Regular rhythm and rate GI: Inspection: normal to inspection Palpation: soft, no hepatosplenomegaly and nontender Auscultation: normal bowel sounds Musc Cervical Spine: normal cervical lordosis and cervical ROM normal Thoracic/Lumbar Spine: thoraco-lumbar ROM normal Skin General: no rashes or lesions noted Neuro General: patient alert, oriented x3, left upper extremity weakness, pronator drift, numbness, tingling. Bilateral lower extremity numbness/tingling. Otherwise unremarkable exam. Cranial Nerves: PERRL Speech: speech normal Extrem Other: RUE weakness, paresthesias Psych Appearance: grossly normal Mental Status: WNL Mood: congruent mood Affect: normal affect Speech and Movement: speech and movement normal Attitude: cooperative Insight: Good Judgment: Good Results <Mariposa Martinez APRN - Last Filed: 06/30/22 12:48> Labs Labs: Laboratory Results - last 24 hr 06/30/22 06/30/22 06/30/22 06:23 07:46 07:46 Corrected WBC 7.1 Uncorrected WBC Count 7.1 RBC 4.56 Hgb 13.7 Hct 42.3 MCV 92.7 MCH 29.9 MCHC 32.3 RDW 13.5 Plt Count 201 MPV 9.0 Neut % (Auto) 66.3 Lymph % (Auto) 20.2 Person % (Auto) 10.3 Eos % (Auto) 2.7 Baso % (Auto) 0.5 Nucleat RBC Rel Count 0.2 Neut # (Auto) 4.7 Lymph # (Auto) 1.4 Person # (Auto) 0.7 Eos # (Auto) 0.2 Baso # (Auto) 0.0 PHA Creatinine Clear 51.34 Sodium 137 Potassium 4.1 Chloride 107 Carbon Dioxide 22.7 Anion Gap 11.4 BUN 26 H Creatinine 1.21 H Est GFR ( Amer) 52 Est GFR (Non-Af Amer) 43 Glucose 141 H POC Glucose 141 Calcium 8.8 Total Bilirubin 1.0 AST 19 ALT 16 Alkaline Phosphatase 127 H Total Protein 5.9 L Albumin 3.3 Globulin 2.6 Albumin/Globulin Ratio 1.3 Prealbumin 24.2 Additional Results Results Comment: I reviewed clinical lab tests, radiology reports and obtained and summated medical records and have ordered follow up lab tests and imaging studies as needed for rehabilitation care. Functional Status <Mariposa Martinez APRN - Last Filed: 06/30/22 12:48> Prior Level of Function Narrative: Previously independent Current Level of Function Narrative: Max assist for toileting mod assist for upper and lower body dressing mod assistfor bed mobility and transfers. Ambulated 6 feet with mod assist <Delio Gonzales MD - Last Filed: 06/30/22 15:11> Individualized Plan of Care Plan of Care: Individualized Overall Plan of Care: Admit Date/Time: June 29, 2022 Expected LOS: 2 weeks Expected Discharge Destination: Home Rehabilitation [facility]: 01.1 Primary Diagnosis: Stroke with left hemiplegia To have patient become more independent and to return home. Medical/ Functional Prognosis: Good Anticipated Functional Outcomes/Goals and Interventions: 1.Therapy Functional Outcome/Goal: Anticipate independent for bed mobility Anticipated interventions: Physician management, PT, OT, BUSINESS DIVISION CHAIR, , Dietitian, RehabNursing, Case management 2. Therapy Functional Outcome/Goal: Anticipate independent for transfer Anticipated interventions: Physician management, PT, OT, BUSINESS DIVISION CHAIR, Case management, Dietitian, Rehab Nursing 3. Therapy Functional Outcome/Goal: Anticipate independent for ambulation Anticipated interventions: Physician management, PT, OT, BUSINESS DIVISION CHAIR Case management, Dietitian, Rehab Nursing 4.Therapy Functional Outcome/Goal: Anticipate independent for self-care Anticipated interventions: Physician management, PT, OT, BUSINESS DIVISION CHAIR, Case management, Dietitian, Rehab Nursing 5.Therapy Functional Outcome/Goal: Anticipate independent for functional communication swallowing Anticipated interventions: Physician management, PT, OT, BUSINESS DIVISION CHAIR, Case management, Dietitian, Rehab Nursing Required Therapy PT: 1 hour per day at least 5 days per week with additional therapy on as neededbasis. Comments: PT to improve pt's strength, endurance, bed mobility, transfers (sit-stand), standing balance, gait quality on level surfaces and stairs, coordination and functional ADL skills. Will also work to improve pt's safety awareness during transfers and ambulation. OT: 1 hour per day at least 5 days per week with additional therapy on as neededbasis. Comments: OT for basic ADL re-training (bathing, dressing, toileting, continence, grooming, feeding, transferring), to increase activity tolerance andfunctional mobility and to evaluate for adaptive and assistive devices. Will work to improve pt's endurance and educate pt on fall prevention and energy conservation techniques-pacing strategies and proper breathing techniques duringfunctional tasks. Speech/Language - 1 hour per day at least 5 days per week with additional therapy on as needed basis. Comments: BUSINESS DIVISION CHAIR to evaluate and treat patient?s cognition, language and communication skills, assess swallow function. Other: Dietitian, Rehab nursing, Wound, P&O, Neuropsychology as needed RATIONALE FOR IRF ADMISSION: Patient has both medical and functional complexities that require 24 hour daily monitoring and intervention from Power System Dispatcher as well as other consulting physicians including internal medicine as well as 24 hour daily head girls golf coach nursing - for medical safe / optimal management. Patient requires interdisciplinary therapy team rehabilitation care including OT, PT, BUSINESS DIVISION CHAIR, SW, Psychology, Rehab Nursing, requires and can tolerate at least 3 hours of daily OT and PT therapy at least 5 days weekly. The following medical conditions significantly impact the rehabilitation process andare being addressed daily and can not be managed at home or in a lesser intense medical setting: Refer to above problem oriented plan of care Assessment/Plan <Mariposa Martinez APRN - Last Filed: 06/30/22 12:48> (1) Diabetes: Code(s): E11.9 - Type 2 diabetes mellitus without complications Status: Acute (2) Obesity, morbid, BMI 40.0-49.9: Code(s): E66.01 - Morbid (severe) obesity due to excess calories Status: Acute (3) Hypertension: Code(s): I10 - Essential (primary) hypertension Status: Acute (4) Hyperlipidemia: Code(s): E78.5 - Hyperlipidemia, unspecified Status: Acute (5) Impaired mobility and activities of daily living: Code(s): Z74.09 - Other reduced mobility; Z78.9 - Other specified health status Status: Acute (6) CVA (cerebral vascular accident): Code(s): I63.9 - Cerebral infarction, unspecified Status: Acute (7) Presence of neurostimulator: Code(s): Z96.82 - Presence of neurostimulator Status: Acute (8) Left hemiplegia: Code(s): G81.94 - Hemiplegia, unspecified affecting left nondominant side Status: Acute Plan Patient education This is a 77-year-old female [facility] functional impairment secondary to suspected CVA. CT/CTA imaging is unremarkable and unable to obtain an MRI due to presence of neurostimulator (apparently spinal cord stimulator and pulse generator were not able to be charged). Repeat CT on 06/27/2022 again did not demonstrate any acute intracranial abnormality. * Continue aspirin and statin for secondary stroke prevention * Tramadol was discontinued due to concern for lowered seizure threshold. She can have oxycodone 2.5 mg every 4 hours as needed. * Continue Keppra for suspected focal motor seizures as per neurology recommendations. * Heparin SQ for DVT prophylaxis Pressure ulcer prophylaxis; encourage mobilization, frequent postural changes, pressure-relief techniques DVT prophylaxis: Heparin subcu every 12 hours Encourage deep breathing exercise incentive spirometry. Monitor bladder. Toileting schedule. Continue current bladder management, with scans as needed and CIC if needed. Start bowel care program every day to obtain continence, prevent ileus. Maintain fall precautions Gait and balance retraining Functional training and self-care and home management, including activities of daily living and instrumental activities of daily living Provision of the necessary gait aids and functional adaptive equipment to enhance the patient's a functional anabaptism Ensure adequate nutrition and hydration Sleep: We will add trazodone Discharge planning: Home with family in 7 to 10 days. I spent greater than 35 minutes for services, including [id number] encounter with the patient, discussion of the case, plan of care, and exam; and [id number] activities, such as reviewing pertinent claims consultant documentation, recent therapy notes, laboratory and radiology studies, and discussion of case with care team including physician, nursing, shell mold bonder, and therapists. More than 50 % of time was spent on patient/family counseling or coordination ofcare. <Delio Gonzales MD - Last Filed: 06/30/22 15:11> (1) Diabetes: (2) Obesity, morbid, BMI 40.0-49.9: (3) Hypertension: (4) Hyperlipidemia: (5) Impaired mobility and activities of daily living: (6) CVA (cerebral vascular accident): Plan: PT to improve pt's strength, endurance, bed mobility, transfers (sit-stand), standing balance, gait quality on level surfaces and stairs, coordination and functional ADL skills. Will also work to improve pt's safety awareness during transfers and ambulation. OT for basic ADL re-training (bathing, dressing, toileting, continence, grooming, feeding, transferring), to increase activity tolerance and functional mobility and to evaluate for adaptive and assistive devices. Will work to improve pt's endurance and educate pt on fall prevention and energy conservationtechniques-pacing strategies and proper breathing techniques during functional tasks. BUSINESS DIVISION CHAIR to evaluate and treat patient?s cognition, language and communication skills, assess swallow function. Patient education Pressure ulcer prophylaxis; encourage mobilization, frequent postural changes, pressure-relief techniques DVT prophylaxis Encourage deep breathing exercise incentive spirometry. Monitor bladder. Toileting schedule. Continue current bladder management, with scans as needed and CIC if needed. Start bowel care program every day to obtain continence, prevent ileus. Maintain fall precautions Gait and balance retraining Provision of the necessary gait aids and functional adaptive equipment to enhance the patient's a functional anabaptism Encourage deep breathing exercises and incentive spirometry RD evaluation Ensure adequate nutrition and hydration Discharge planning. (7) Presence of neurostimulator: (8) Left hemiplegia: Plan: I completed a substantive portion of this encounter, the medical decision makingportion of this note in its entirety, including Allied health note review, nursing note review, claims consultant note review, discussion with nursing and case management, and more than 50% of my time was spent on counseling and coordination of care, time spent 45 minutes Patient was personally seen by me, Dr. Gonzales, on the day of encounter, reviewed the history and the relevant portions of the chart, including current orders, allied health and claims consultant notes, labs/imaging and performed gómez elements of exam and I formulated the plan of care and facilitated the medical decision making. Documented By: Delio Gonzales MD 06/30/22 1146 Signed By: <Electronically signed by Delio Gonzales MD> 06/30/22 1511 <Electronically signed by ISIDRO Martinez> 06/30/22 1248 [facility] Work Phone: [phone] 946-558801-10-2023 Evaluation + Plan noteExtracted from: Title:Discharge Note Author:Ammon VELASQUEZ, Miladis Castro ate:06/27/22 Stable Discharge To, Anticipated II - [facility] Discharged to - Home independently Prescriptions aspirin 81 mg Oral EC Tab, 81 mg= 1 tab(s), Oral, Daily atorvastatin 80 mg Tab, 80 mg= 1 tab(s), Oral, Daily diclofenac topical 1% gel, 1 taylor, Topical, QID, PRN gabapentin 800 mg Tab, 800 mg= 1 tab(s), Oral, BID Keppra 750 mg oral tablet, 750 mg= 1 tab(s), Oral, BID Home atenolol 50 mg Tab, 50 mg= 1 tab(s), Oral, Bedtime atenolol 50 mg Tab, 25 mg= 0.5 tab(s), Oral, Daily Humalog, 25 unit(s), SubCutaneous, qAM Humalog, 35 unit(s), SubCutaneous, qPM lisinopril 20 mg Tab, 20 mg= 1 tab(s), Oral, Daily omeprazole, 40 mg, Oral, Daily Tylenol 8 HR Arthritis Pain 650 mg oral tablet, extended release, 1300 mg= 2 tab(s), Oral, q8hr, PRN Victoza, 1.8 mg, SubCutaneous, Daily With When Contact Information Dr. Virk NEURO 07/26/2022 02:10 PM [place], [place] [phone] Additional Instructions: Lani Méndez 06/29/2022 05:00 PM [facility] [place] [phone]- Business (1) Additional Instructions: Core Measures: Stroke (Cerebrovascular Accident) [facility] [place] Core Measures Transient Ischemic Attack (TIA) [facility] [place] Extracted from: Title:APSO Note- Neurology Author:Ramona WILSON, Braulio Foy Date:06/27/22 Reason for consult: numerous acute-onset neurological deficits, onset 06/23/22 ASSESSMENT: 1. 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 Potential vascular territory right MCA and PARTS COUNTERPERSON - she does have a right PARTS COUNTERPERSON. There are no overt or obvious developing hypodensities on serial CT scans that could fully explain her symptoms. She may have some ipsilateral sensory losses which confound localization. 2. Involuntary movements of left hand and arm - usually sustained finger flexion but can also have what sound like low amplitude myoclonic movements. Consider focal motor seizure (tonic and myoclonic) related to #1. Routine EEG unremarkable but during that EEG she had no involuntary movements. Other seizure risk factors include tramadol usage and cortical calcifications on her CT scans. PLAN: 1. Continue the aspirin 81 mg daily (started here) and the atorvastatin 80 mg (changed to here from home lovastatin) 2. Changed gabapentin 1200 mg BID to 800 mg BID based on current renal function 3. Discontinued the scheduled tramadol 100 mg BID (lowers seizure threshold); use alternative if needed (pain management consulted) 4. MRI brain with and without contrast - her [employer] SC-1232 spinal stimulator is MR-conditional. No one can get the generator to maintain enough charge to change its settings or put it in MRI mode. At this point it does not look like the MRI will be completed. 5. Continue Keppra 500 mg BID (started 06/26/22 ) 6. Without a pending MRI, no other immediate recommendations. 1. Arm paresthesia, left (R20.2: Paresthesia of skin) 2. Hand weakness (R29.898: Other symptoms and signs involving the musculoskeletal system) 3. T2DM (type 2 diabetes mellitus) (E11.9: Type 2 diabetes mellitus without complications) 4. UTI (urinary tract infection) (N39.0: Urinary tract infection, site not specified) 5. HTN (hypertension) (I10: Essential (primary) hypertension) 6. Morbid obesity (E66.01: Morbid (severe) obesity due to excess calories) 7. Arthritis (M19.90: Unspecified osteoarthritis, unspecified site) 8. No contraindication to deep vein thrombosis (DVT) prophylaxis (Z78.9: Other specified health status) Lumbosacral radiculopathy (M54.17: Radiculopathy, lumbosacral region) Addendum by Miguel Becerra DO on June 27, 2022 10:48:01 EST With concern for seizure disorder, no driving until released by an outpatient neurologist. Because she has hemianopic changes to her only functional eye, she also cannot drive until she has formal visual field testing and is cleared by an chimney construction supervisor. Extracted from: Title:APSO Note-neurology Author:Candida WILSON, Franco rodriguez Date:06/26/22 Reason for consult: numerous acute-onset neurological deficits, onset 06/23/22 ASSESSMENT: 1. 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 Potential vascular territory right MCA and PARTS COUNTERPERSON - she does have a right PARTS COUNTERPERSON. Interval CT from day of onset to day two potentially shows subtle developing right frontoparietal subcortical and deep white matter hypodensity. She may have some ipsilateral sensory losses which confound localization. 2. Involuntary movements of left hand and arm - usually sustained finger flexion but can also have what sound like low amplitude myoclonic movements. Consider focal motor seizure (tonic and myoclonic) related to #1. Routine EEG unremarkable but during that EEG she had no involuntary movements. Other seizure risk factors include tramadol usage and cortical calcifications on her CT scans. PLAN: 1. Continue the aspirin 81 mg daily (started here) and the atorvastatin 80 mg (changed to here from home lovastatin) 2. Change gabapentin 1200 mg BID to 800 mg BID based on current renal function 3. Discontinue the scheduled tramadol 100 mg BID (lowers seizure threshold) and use alternative (pain management consulted) 4. MRI brain with and without contrast - her [employer] SC-1232 spinal stimulator is MR-conditional 5. Start Keppra 500 mg BID 6. If MRI can not be performed for any reason, repeat head CT first thing tomorrow morning. 1. Arm paresthesia, left (R20.2: Paresthesia of skin) 2. Hand weakness (R29.898: Other symptoms and signs involving the musculoskeletal system) 3. T2DM (type 2 diabetes mellitus) (E11.9: Type 2 diabetes mellitus without complications) 4. UTI (urinary tract infection) (N39.0: Urinary tract infection, site not specified) 5. HTN (hypertension) (I10: Essential (primary) hypertension) 6. Morbid obesity (E66.01: Morbid (severe) obesity due to excess calories) 7. Arthritis (M19.90: Unspecified osteoarthritis, unspecified site) 8. No contraindication to deep vein thrombosis (DVT) prophylaxis (Z78.9: Other specified health status) Lumbosacral radiculopathy (M54.17: Radiculopathy, lumbosacral region) Extracted from: Title:APSO Note Author:JARRET VELASQUEZ, Vivek P Date:06/25/22 77-year-old female with past medical history of diabetes mellitus, morbid obesity, hypertension presents to emergency department after waking up with left-sided arm weakness. 1. Arm paresthesia, left (R20.2: Paresthesia of skin) Case discussed with neurology Would like to get an MRI but with the stimulator not being charged there is an issue Will call the rep tomorrow if possible CTA results are noted Patient having difficulty charging the stimulator Continue with aspirin, statin PT OT Echocardiogram results are reviewed Follow-up with neurology as outpatient Ordered: [facility] Hospital Care/Day High 35 Minutes 11146 2. Hand weakness (R29.898: Other symptoms and signs involving the musculoskeletal system) Improved Continue with PT OT Ordered: atorvastatin, 80 mg = 2 tab(s), Tab, Oral, Bedtime, Routine, Start date 06/24/22 21:00:00 EST, 06/24/22 8:36:00 EST [facility] Hospital Care/Day High 35 Minutes [id number] 3. T2DM (type 2 diabetes mellitus) (E11.9: Type 2 diabetes mellitus without complications) Accu-Chek with sliding scale insulin only Hemoglobin A1c is 6 Ordered: [facility] Hospital Care/Day High 35 Minutes 13146 4. UTI (urinary tract infection) (N39.0: Urinary tract infection, site not specified) UTI present on admission Continue with ceftriaxone in the meantime Changed to p.o. agent on discharge 5. HTN (hypertension) (I10: Essential (primary) hypertension) Atenolol, lisinopril 6. Morbid obesity (E66.01: Morbid (severe) obesity due to excess calories) Lifestyle modification 7. Arthritis (M19.90: Unspecified osteoarthritis, unspecified site) Tylenol as needed Awaiting pain management consult which will be tomorrow Continue with chronic pain medication including gabapentin, tramadol 8. No contraindication to deep vein thrombosis (DVT) prophylaxis (Z78.9: Other specified health status) Heparin twice a day Lumbosacral radiculopathy (M54.17: Radiculopathy, lumbosacral region) Ordered: gabapentin, 1,200 mg = 2 tab(s), Tab, Oral, BID, Routine, Start date 06/24/22 9:00:00 EST, 06/24/22 8:35:00 EST Orders: atenolol, 25 mg = 0.5 tab(s), Tab, Oral, Daily, Routine, Start date 06/24/22 9:00:00 EST, 06/24/22 8:32:00 EST atenolol, 50 mg = 1 tab(s), Tab, Oral, Bedtime, Routine, Start date 06/24/22 21:00:00 EST, 06/24/22 8:32:00 EST lisinopril, 20 mg = 1 tab(s), Tab, Oral, Daily, Routine, Start date 06/24/22 9:00:00 EST, 06/24/22 8:35:00 EST pantoprazole, 40 mg = 1 tab(s), Tab-DR, Oral, Daily, Routine, Start date 06/24/22 9:00:00 EST, 06/24/22 8:35:00 EST Sodium Chloride 0.9% intravenous solution 250 mL, 250 mL, IV, 20 mL/hr, Other (see comment), Routine, Start date 06/24/22 10:41:00 EST, 12.5 hour(s), Total volume (mL): 250, 130.4 kg, 2.43, m2 tramadol, 100 mg = 2 tab(s), Tab, Oral, BID for 7 day(s), Stop date 07/01/22 8:59:00 EST, Routine, Start date 06/24/22 9:00:00 EST, 06/24/22 8:35:00 EST Communication Order Communication Order Communication Order Communication Order Consult to Pain Management CTA Head Plan discussed with patient at bedside 28 minutes spent in addressing above issue and in medical decision making This report was transcribed using voice recognition software. Every effort was made to ensure accuracy, however, inadvertently computerized sheet finisher mistakes may be present. Dr. Vivek Wheat Hospitalist at [facility] Extracted from: Title:APSO Note-neurology Author:Candida WILSON Franco ole Date:06/25/22 The patient is a 77-year-old right-handed white female with a history of diabetes mellitus and hypertension who was admitted to the hospital with sudden onset of left arm dystonia with weakness in the left distal arm. Possible etiologies include cerebral ischemia or transient ischemic attack secondary to artery to artery embolus, cerebral artery thrombosis, or cardioembolic event. I cannot exclude cerebral hypoperfusion from intracranial or extracranial cerebral artery stenosis contributing to the patient's symptoms. Due to the high morbidity and mortality associated with stroke the patient is admitted to the hospital for further workup and evaluation. The patient has Persistent left facial weakness and left arm weakness with some distal spasticity -I recommend obtaining an MRI of the brain to assess for cerebral ischemia or other intracranial process which may be contributing to the patient's symptoms. The patient has a pain stimulator which is being evaluated for compatibility to obtain MRI. The plan is for Dr. Fernandez to see the patient tomorrow and make a determination on ability to obtain MRI scan with pain stimulator. -I recommend obtaining an MR angiogram of the brain to assess for any intracranial cerebral artery stenosis -I Have reviewed the ultrasound of the carotid arteries Which does not reveal evidence of any significant carotid artery stenosis which may contribute to artery to artery embolus or cerebral hypoperfusion -I Have reviewed the cardiac echo Which does not reveal evidence of any hypokinesis, akinesis, valve disease, or cardiac thrombus which may contribute to a cardioembolic event -I recommend continuing the patient on telemetry to assess for a cardiac arrhythmia which may contribute to a cardioembolic event -I recommend aspirin 81 mg daily for secondary stroke prevention for now -I recommend to continue monitoring the patient's blood pressure to keep them normotensive -I recommend to continue monitoring the patient's blood sugar to keep them normoglycemic -I recommend obtaining a lipid panel and hemoglobin A1c to assess the patient's stroke risk factors -I recommend speech therapy assessed the patient for swallow evaluation and therapy needs -I recommend physical therapy and occupational therapy assessed the patient for therapy and rehabilitation needs -I recommend DVT prevention with SCD stockings or an equivalent -I counseled the patient on stroke signs and symptoms and advised them to alert nursing should save developed these symptoms while in the hospital and in the future go immediately to the emergency room -I counseled the patient on the possible diagnoses, prognosis, evaluation, and treatment options. I answered all questions. -I discussed the above recommendations with the hospitalist Dr. Wheat 1. Arm paresthesia, left (R20.2: Paresthesia of skin) 2. Hand weakness (R29.898: Other symptoms and signs involving the musculoskeletal system) 3. T2DM (type 2 diabetes mellitus) (E11.9: Type 2 diabetes mellitus without complications) 4. UTI (urinary tract infection) (N39.0: Urinary tract infection, site not specified) 5. HTN (hypertension) (I10: Essential (primary) hypertension) 6. Morbid obesity (E66.01: Morbid (severe) obesity due to excess calories) 7. Arthritis (M19.90: Unspecified osteoarthritis, unspecified site) 8. No contraindication to deep vein thrombosis (DVT) prophylaxis (Z78.9: Other specified health status) Lumbosacral radiculopathy (M54.17: Radiculopathy, lumbosacral region) Extracted from: Title:APSO Note Author:JARRET VELASQUEZ, Vivek P Date:06/24/22 77-year-old female with past medical history of diabetes mellitus, morbid obesity, hypertension presents to emergency department after waking up with left-sided arm weakness. 1. Arm paresthesia, left (R20.2: Paresthesia of skin) Patient is trying to charge her back stimulator and if it can work we will try to obtain MRI and MRA If not later in the day we will do CT head repeat imaging along with CTA head and neck Continue with aspirin, full-strength statin Case discussed with neurologist and patient We will restart patient's chronic blood pressure medication Neurology consultation is noted PT OT evaluation Cleared dysphagia screen and tolerating diet well Echocardiogram negative for PFO or intramural thrombus Ordered: Initial Hospital Care/Day High 70 Minutes 52076 2. Hand weakness (R29.898: Other symptoms and signs involving the musculoskeletal system) Improved Continue with PT OT Management as above Ordered: atorvastatin, 80 mg = 2 tab(s), Tab, Oral, Bedtime, Routine, Start date 06/24/22 21:00:00 EST, 06/24/22 8:36:00 EST Initial Hospital Care/Day High 70 Minutes [id number] 3. T2DM (type 2 diabetes mellitus) (E11.9: Type 2 diabetes mellitus without complications) Accu-Chek with sliding scale insulin Ordered: insulin lispro, 0-10 Units, Injection-Insulin, SubCutaneous, QIDACHS, Routine, Start date 06/23/22 11:30:00 EST Diabetic/Calorie Control Diet Initial Hospital Care/Day High 70 Minutes 70475 Routine Capillary Glucose POC 4. UTI (urinary tract infection) (N39.0: Urinary tract infection, site not specified) Low final culture result and switch from IV ceftriaxone to p.o. agent based on sensitivity Ordered: ceftriaxone + Sodium Chloride 0.9% intravenous solution 50 mL, 1,000 mg = 1 EA, Injection, IV Piggyback, Daily, Routine, Start date 06/23/22 9:00:00 EST, 100 mL/hr, Infuse over 30 minute(s) 5. HTN (hypertension) (I10: Essential (primary) hypertension) Restarted atenolol and lisinopril 6. Morbid obesity (E66.01: Morbid (severe) obesity due to excess calories) Lifestyle modification 7. Arthritis (M19.90: Unspecified osteoarthritis, unspecified site) Tylenol as needed Has a chronic back pain and wants to see Dr. Barnes Pain management consult place Continue chronic pain medications, gabapentin 8. No contraindication to deep vein thrombosis (DVT) prophylaxis (Z78.9: Other specified health status) Heparin twice a day Lumbosacral radiculopathy (M54.17: Radiculopathy, lumbosacral region) Ordered: gabapentin, 1,200 mg = 2 tab(s), Tab, Oral, BID, Routine, Start date 06/24/22 9:00:00 EST, 06/24/22 8:35:00 EST Orders: atenolol, 25 mg = 0.5 tab(s), Tab, Oral, Daily, Routine, Start date 06/24/22 9:00:00 EST, 06/24/22 8:32:00 EST atenolol, 50 mg = 1 tab(s), Tab, Oral, Bedtime, Routine, Start date 06/24/22 21:00:00 EST, 06/24/22 8:32:00 EST lisinopril, 20 mg = 1 tab(s), Tab, Oral, Daily, Routine, Start date 06/24/22 9:00:00 EST, 06/24/22 8:35:00 EST pantoprazole, 40 mg = 1 tab(s), Tab-DR, Oral, Daily, Routine, Start date 06/24/22 9:00:00 EST, 06/24/22 8:35:00 EST tramadol, 100 mg = 2 tab(s), Tab, Oral, BID for 7 day(s), Stop date 07/01/22 8:59:00 EST, Routine, Start date 06/24/22 9:00:00 EST, 06/24/22 8:35:00 EST Ambulate with Assistance Automated Diff Basic Metabolic Panel Cardiac Monitoring CBC w/ Auto Diff Consult to Pain Management Dysphagia Screen Echo w/ Saline Bubbles eGFR Lipid Panel Magnesium Level MRA Head w/o Contrast MRI Brain w/o Contrast Occupational Therapy Evaluate Patient, Develop a Plan of Care and Implement Plan Physical Therapy Additional Tx Physical Therapy Evaluate Patient, Develop a Plan of Care and Implement Plan Stroke Education US Carotid Duplex Bilateral Plan discussed with patient at bedside 33 minutes spent in addressing above issue and in medical decision making This report was transcribed using voice recognition software. Every effort was made to ensure accuracy, however, inadvertently computerized sheet finisher mistakes may be present. Dr. Vivek Wheat Hospitalist at [facility] Extracted from: Title:APSO Note-neurology Author:Candida WILSON Franco ole Date:06/24/22 The patient is a 77-year-old right-handed white female with a history of diabetes mellitus and hypertension who was admitted to the hospital with sudden onset of left arm dystonia with weakness in the left distal arm. Possible etiologies include cerebral ischemia or transient ischemic attack secondary to artery to artery embolus, cerebral artery thrombosis, or cardioembolic event. I cannot exclude cerebral hypoperfusion from intracranial or extracranial cerebral artery stenosis contributing to the patient's symptoms. Due to the high morbidity and mortality associated with stroke the patient is admitted to the hospital for further workup and evaluation. The patient has somewhat worsening left facial weakness today with persistent left arm weakness -I recommend obtaining an MRI of the brain to assess for cerebral ischemia or other intracranial process which may be contributing to the patient's symptoms. The patient has a pain stimulator which is being evaluated for compatibility To obtain MRI -I recommend obtaining an MR angiogram of the brain to assess for any intracranial cerebral artery stenosis -I recommend obtaining an ultrasound of the carotid arteries to assess for any significant carotid artery stenosis which may contribute to artery to artery embolus or cerebral hypoperfusion -I recommend considering obtaining a cardiac echo to assess for any hypokinesis, akinesis, valve disease, or cardiac thrombus which may contribute to a cardioembolic event -I recommend continuing the patient on telemetry to assess for a cardiac arrhythmia which may contribute to a cardioembolic event -I recommend aspirin 81 mg daily for secondary stroke prevention for now -I recommend to continue monitoring the patient's blood pressure to keep them normotensive -I recommend to continue monitoring the patient's blood sugar to keep them normoglycemic -I recommend obtaining a lipid panel and hemoglobin A1c to assess the patient's stroke risk factors -I recommend speech therapy assessed the patient for swallow evaluation and therapy needs -I recommend physical therapy and occupational therapy assessed the patient for therapy and rehabilitation needs -I recommend DVT prevention with SCD stockings or an equivalent -I counseled the patient on stroke signs and symptoms and advised them to alert nursing should save developed these symptoms while in the hospital and in the future go immediately to the emergency room -I counseled the patient on the possible diagnoses, prognosis, evaluation, and treatment options. I answered all questions. -I discussed the above recommendations with the hospitalist Dr. Wheat 1. Arm paresthesia, left (R20.2: Paresthesia of skin) 2. Hand weakness (R29.898: Other symptoms and signs involving the musculoskeletal system) 3. T2DM (type 2 diabetes mellitus) (E11.9: Type 2 diabetes mellitus without complications) 4. UTI (urinary tract infection) (N39.0: Urinary tract infection, site not specified) 5. HTN (hypertension) (I10: Essential (primary) hypertension) 6. Morbid obesity (E66.01: Morbid (severe) obesity due to excess calories) 7. Arthritis (M19.90: Unspecified osteoarthritis, unspecified site) 8. No contraindication to deep vein thrombosis (DVT) prophylaxis (Z78.9: Other specified health status) Extracted from: Title:Consult Note-neurology Author:Candida WILSON N ichole Date:06/23/22 The patient is a 77-year-old right-handed white female with a history of diabetes mellitus and hypertension who was admitted to the hospital with sudden onset of left arm dystonia with weakness in the left distal arm. Possible etiologies include cerebral ischemia or transient ischemic attack secondary to artery to artery embolus, cerebral artery thrombosis, or cardioembolic event. I cannot exclude cerebral hypoperfusion from intracranial or extracranial cerebral artery stenosis contributing to the patient's symptoms. Due to the high morbidity and mortality associated with stroke the patient is admitted to the hospital for further workup and evaluation. -I recommend obtaining an MRI of the brain to assess for cerebral ischemia or other intracranial process which may be contributing to the patient's symptoms -I recommend obtaining an MR angiogram of the brain to assess for any intracranial cerebral artery stenosis -I recommend obtaining an ultrasound of the carotid arteries to assess for any significant carotid artery stenosis which may contribute to artery to artery embolus or cerebral hypoperfusion -I recommend considering obtaining a cardiac echo to assess for any hypokinesis, akinesis, valve disease, or cardiac thrombus which may contribute to a cardioembolic event -I recommend continuing the patient on telemetry to assess for a cardiac arrhythmia which may contribute to a cardioembolic event -I recommend aspirin 81 mg daily for secondary stroke prevention for now -I recommend to continue monitoring the patient's blood pressure to keep them normotensive -I recommend to continue monitoring the patient's blood sugar to keep them normoglycemic -I recommend obtaining a lipid panel and hemoglobin A1c to assess the patient's stroke risk factors -I recommend speech therapy assessed the patient for swallow evaluation and therapy needs -I recommend physical therapy and occupational therapy assessed the patient for therapy and rehabilitation needs -I recommend DVT prevention with SCD stockings or an equivalent -I counseled the patient on stroke signs and symptoms and advised them to alert nursing should save developed these symptoms while in the hospital and in the future go immediately to the emergency room -I counseled the patient on the possible diagnoses, prognosis, evaluation, and treatment options. I answered all questions. -I discussed the above recommendations with the hospitalist Dr. Wheat 1. Arm paresthesia, left (R20.2: Paresthesia of skin) 2. Hand weakness (R29.898: Other symptoms and signs involving the musculoskeletal system) 3. T2DM (type 2 diabetes mellitus) (E11.9: Type 2 diabetes mellitus without complications) 4. UTI (urinary tract infection) (N39.0: Urinary tract infection, site not specified) 5. HTN (hypertension) (I10: Essential (primary) hypertension) 6. Morbid obesity (E66.01: Morbid (severe) obesity due to excess calories) 7. Arthritis (M19.90: Unspecified osteoarthritis, unspecified site) 8. No contraindication to deep vein thrombosis (DVT) prophylaxis (Z78.9: Other specified health status) Extracted from: Title:Admission H & P Author:Vivek WHEAT MD ate:06/23/22 77-year-old female with past medical history of diabetes mellitus, morbid obesity, hypertension presents to emergency department after waking up with left-sided arm weakness. 1. Arm paresthesia, left (R20.2: Paresthesia of skin) Concern for acute stroke Will admit to inpatient with telemetry as I suspect this patient will require more than 2 midnight stay for evaluation of acute stroke. Needs MRI brain along with MRA of the head with carotid ultrasound Nothing by mouth for now until dysphagia screen is cleared. Nurse did a bedside evaluation and patient already cleared dysphagia screen Will order diabetic diet IV fluids along with permissive hypertension up to 220/110. Hold all oral medication. Aspirin 81 mg daily Physical therapy evaluation to determine if patient will benefit for acute rehabilitation after discharge. Check Every 2 hours NIH stroke scale along with neurologic examination. Admit patient to telemetry. Check echocardiogram to rule out intra-cardiac thrombus. Check hemoglobin A1c, lipid panel. 2. Hand weakness (R29.898: Other symptoms and signs involving the musculoskeletal system) Management as above 3. T2DM (type 2 diabetes mellitus) (E11.9: Type 2 diabetes mellitus without complications) Accu-Chek with sliding scale insulin Okay to have diet Ordered: insulin lispro, 0-10 Units, Injection-Insulin, SubCutaneous, QIDACHS, Routine, Start date 06/23/22 11:30:00 EST Diabetic/Calorie Control Diet Routine Capillary Glucose POC 4. UTI (urinary tract infection) (N39.0: Urinary tract infection, site not specified) Ceftriaxone Follow-up culture results Ordered: ceftriaxone + Sodium Chloride 0.9% intravenous solution 50 mL, 1,000 mg = 1 EA, IV Piggyback, Daily, Routine, Start date 06/23/22 9:00:00 EST, 100 mL/hr, Infuse over 30 minute(s), 06/23/22 8:42:00 EST 5. HTN (hypertension) (I10: Essential (primary) hypertension) Permissive hypertension for 24 hours 6. Morbid obesity (E66.01: Morbid (severe) obesity due to excess calories) BMI of 49 Lifestyle modification 7. Arthritis (M19.90: Unspecified osteoarthritis, unspecified site) Tylenol as needed 8. No contraindication to deep vein thrombosis (DVT) prophylaxis (Z78.9: Other specified health status) Heparin twice a day Orders: acetaminophen, 650 mg = 2 tab(s), Tab, Oral, q6hr PRN Pain, Routine, Start date 06/23/22 8:03:00 EST, 06/23/22 8:03:00 EST Al hydroxide/Mg hydroxide/simethicone, 30 mL, Susp-Oral, Oral, q6hr PRN Indigestion, STAT, Start date 06/23/22 8:03:00 EST aspirin, 81 mg = 1 tab(s), Tab-EC, Oral, Daily, Routine, Start date 06/23/22 9:00:00 EST, 06/23/22 8:03:00 EST aspirin, Tab-EC, Misc, Once, Stop date 06/23/22 8:27:39 EST, Physician Stop, 06/23/22 8:27:39 EST heparin, 5,000 unit(s) = 1 mL, Injection, SubCutaneous, q12hr, Routine, Start date 06/23/22 9:00:00 EST, 06/23/22 8:03:00 EST hydrALAZINE, 10 mg = 0.5 mL, Injection, IV Push, q6hr PRN Other (see comment), Routine, Start date 06/23/22 8:03:00 EST, 06/23/22 8:03:00 EST midazolam, 2 mg = 2 mL, Injection, IV Push, Once, Stop date 06/23/22 9:00:00 EST, Routine, Start date 06/23/22 9:00:00 EST, give 30 min before GUTIERREZ ondansetron, 4 mg = 2 mL, Injection, IV Push, q6hr PRN Nausea, Routine, Start date 06/23/22 8:03:00 EST, 06/23/22 8:03:00 EST Ambulate with Assistance Basic Metabolic Panel Below the Knee Intermittent Pneumatic Compression Device Cardiac Monitoring CBC w/ Auto Diff Communication Order Communication Order Physician to Nursing Consult to Neurology Dysphagia Screen Echo w/ Saline Bubbles Evaluate Need For Continued Telemetry Intake and Output Lipid Panel Magnesium Level MRA Head w/o Contrast MRI Brain w/o Contrast Notify Provider Vital Signs Notify Provider Vital Signs Occupational Therapy Evaluate Patient, Develop a Plan of Care and Implement Plan Oxygen Protocol Physical Therapy Evaluate Patient, Develop a Plan of Care and Implement Plan Place in Status Precautions Pulse Oximetry Stroke Education Stroke Quality Measures US Carotid Duplex Bilateral Vital Signs Weight Plan discussed with patient and family member at bedside in ER bed #6 72 minutes spent in addressing above issue and in medical decision making This report was transcribed using voice recognition software. Every effort was made to ensure accuracy, however, inadvertently computerized sheet finisher mistakes may be present. Dr. Vivek Wheat Hospitalist at [facility] Extracted from: Title:ED Note Author:Jung Esparza DO Date: Arm paresthesia, left (R20.2 : Paresthesia of skin) Hand weakness (R29.898: Other symptoms and signs involving the musculoskeletal system) Orders: Automated Diff Basic Metabolic Panel CBC w/ Auto Diff [place] Stroke Scale Communication Order Physician to Nursing Continuous Pulse Oximetry CT Head or Brain w/o Contrast ECG 12 Lead Adult ED Cardiac Monitoring ED Physician consult Hospitalist for continued care eGFR HgbA1c Oxygen Therapy PT & PTT Routine Capillary Glucose POC Saline Lock Insert Stroke Quality Measures Troponin 0 Hr. Troponin 3 Hr. UA With Cult Reflex Vital Signs XR Chest Single View Future Appointments Appointment Date:06/28/2022 09:25:00 AM Scheduled Provider:Harjeet SAINI MD Location:Extended Care Appointment Type:EC TCU Appointment Date:08/31/2022 11:00:00 AM Scheduled Provider:Dustin Gonzales MD Location:.[facility] [place] Appointment Type:Pain Management - Follow Up (FT) [facility]01-10-2023 Hospital Discharge instructions Patient Education 06/26/2022 23:58:30 Core Measures: Stroke (Cerebrovascular Accident) [facility] [place] Stroke (Cerebrovascular Accident) A stroke is acute of brain tissue, and it is a neurologic emergency. A stroke can cause permanent loss of function of the central nervous system (brain). If the symptoms of a stroke end withoutcomplications in 24 hours, it is diagnosed as a transient ischemic attack (TIA). If the symptoms are not resolved within 24 hours, it is defined as a stroke. CAUSES A stroke is caused by a decrease of oxygen supply to an area of your brain. It is usually the result of a small blood clot or hardening of the arteries. Blockages in, or damage to, the carotid arteries leading to the brain can also cause a stroke. Bleeding in the brain can cause, or accompany, a stroke. SYMPTOMS These symptoms usually develop suddenly (or may be newly present upon awakening from sleep): Loss of vision. Double vision. Confusion. Numbness or weakness on one side of the face or body. Inability to speak (aphasia). DIAGNOSIS Your caregiver can often determine the presence or absence of a stroke based on your symptoms, history, and examination. A CT scan of the brain is usually performed to confirm the stroke, look for causes, and determine the severity. Other tests may be done to find the cause of the stroke, including: An EKG and heart monitoring. An echocardiogram (ultrasound evaluation of the heart). An ultrasound evaluation of your carotid arteries. Determination of blood oxygen level and blood tests. PREVENTION The likelihood of a stroke can be decreased by appropriate treatment of high blood pressure, high cholesterol, diabetes, and by stopping smoking. RISK FACTORS: If you have been told by your doctor or nurse practitioner that you have any of the following risk factors for stroke, work with your health lpn care manager to control them. High Blood Pressure: High blood pressure is one of the main causes of stroke. It is the most important risk factor to control. Take your blood pressure medication, lose weight, increase your activity, and limit your salt intake to help control your blood pressure.Take your your blood pressure and write it down and then take them to your next doctor's appointment. Smoking: If you smoke: QUIT! We can help. Please call [facility] at [phone] ([facility] [place] or [phone], ext. [phone] Diabetes: Work with your healthcare professional to keep your blood sugar under control. Check yourblood sugar and take the results to your next doctor's visit. Take your medications as directed. Eating a healthy diet and exercising will also help keep your diabetes under control. For information on [facility] please call, . Carotid or other Artery Diseases: The carotid arteries in your neck carry blood to the brain. A stroke can be caused by a blood clot blocking an artery that has been damaged by a fatty buildup insidethe artery wall. Discuss ways to manage this with your health care provider. Atrial Fibrillation (A Fib): In A fib, your heart does not have a normal beat. This may allow clotsto form and puts you at a greater risk for having a stroke. Work with your health care provider to control your A fib. Your doctor may order special medication that helps prevent clots from forming. High blood cholesterol or high blood fats: High cholesterol increases your risk of stroke. Exerciseregularly, but talk to your health care provider first. A diet low in fat and cholesterol can help.If you have any questions about a low fat, low cholesterol diet, you can call our [facility] commodity analyst at [phone] Ext. [phone]. The goal for total cholesterol is less than 200, and for LDL or thebad cholesterol is less than 100. Lifestyle Management: You increase your risk of stroke if you are overweight or obese, are not veryactive, or drink too much alcohol. Enjoy a diet rich in fruits and vegetables. Exercise regularly and drink alcohol in moderation or no more than two drinks a day for men and no more than one drink aday for non- women, or don't drink at all. This will help decrease your risk of stroke. Oral Contraceptives: Taking control pills or the pill can be a risk factor for stroke especially if you smoke. Discuss using the oral contraceptives and your risk of stroke with your health lpn care manager. TREATMENT TIME IS OF THE ESSENCE! Medications to dissolve a blood clot can only be used within four and a half hours of the onset of symptoms. After that time, treatment of stroke depends on duration of symptoms, severity, and cause. Medications and diet measures may be used to address diabetes, high blood pr essure, and other risk factors. Physical therapy, speech therapy, and occupational therapy specialists will assess you and work to improve any functions impaired by the stroke. Measures will be takento prevent short and medical terminologist complications, including aspiration pneumonia, blood clots in the leg s, bedsores, and falls. HOME CARE INSTRUCTIONS Care at home after a stroke can be complicated. Medications Blood thinners may be used to prevent another stroke. Blood thinners need to be used exactly as instructed. Medicines may also be used to control risk factors for a stroke. Be sure you understand all your medication instructions. It is very important to not run out of your medicine. Getmore while you still have a one-week supply. Do not stop taking your medicine without speaking to your healthcare professional. Take all of your medications or an updated list of your medications to all of your doctor's appointments. Physical, occupational, and speech therapy Ongoing therapy is often necessary to maximize recovery after a stroke. If you have been advised to use a walker or a cane, use it at all times. Be sure youkeep your therapy appointments. Diet Certain diets may be prescribed to address high blood pressure, high cholesterol, or diabetes.Foods may need to be a special consistency (soft, pureed, small bites) to avoid food going into your lungs or choking. Home safety A safe home environment is important to reduce the risk of falls. Your caregiver may arrange for specialists to evaluate your home. Grab bars in the bedroom and bathroom are often important. Your caregiver may arrange for special equipment to be used at home, such as raised toilets and a seat for the shower. It s important to know and control your risk factors, but it is also important to recognize the signs and symptoms of stroke/TIA and know what to do: Call 911 if any of these things happen: Sudden numbness or weakness of the face, arm, or leg especially on one side of the body. Sudden confusion, trouble speaking, or understanding. Sudden trouble seeing in one or both eyes. Sudden trouble walking, dizziness, loss of balance or coordination Sudden severe headache with no known cause * It is very important for you to follow-up with your Primary Care Doctor and your Neurologist after you go home. Make sure that you keep your doctor visits. Remember: TIME LOST is BRAIN LOST Resources: for more information on strokes, log onto www.[facility] [place] [place].com or www.strokeassociation.org or call the [place] [employer] at (027) 178- [phone]. Revised 06/201806/26/2022 23:58:30 Core Measures Transient Ischemic Attack (TIA) [facility] [place] Transient Ischemic Attack You have had a transient ischemic attack (TIA). This means that the nervous system did not work properly for a short time. It is caused by a low oxygen supply to an area of your brain. It may be caused by a small blood clot or hardening of the arteries. This is a temporary neurologic condition. It usually gets better within thirty minutes, but always within twenty-four hours. If this does not resolve within that time period, it is defined as a stroke. TIA's are warning signs that you are at risk for having a stroke. A small percentage of patients who have had a TIA will have a stroke within acouple days, and up to 20% will have a stroke within 3 months. PREVENTION The likelihood of a stroke can be decreased by appropriate treatment of high blood pressure, high cholesterol, diabetes, and by stopping smoking. RISK FACTORS: If you have been told by your doctor or nurse practitioner that you have any of the following risk factors for stroke, work with your health lpn care manager to control them. Risk Factors: High Blood Pressure: High blood pressure is one of the main causes of stroke. It is the most important risk factor to control. Take your blood pressure medication, lose weight, increase your activity, and limit your salt intake to help control your blood pressure.Take your your blood pressure and write it down and then take them to your next doctor's appointment. Smoking: If you smoke: QUIT! We can help. Please call [facility] at [phone] ([facility] [place] or [phone], ext. [phone] Diabetes: Work with your healthcare professional to keep your blood sugar under control. Check yourblood sugar and take the results to your next doctor's visit. Take your medications as directed. Eating a healthy diet and exercising will also help keep your diabetes under control. For information on [facility] Diabetic Support Group please call, . Carotid or other Artery Diseases: The carotid arteries in your neck carry blood to the brain. A stroke can be caused by a blood clot blocking an artery that has been damaged by a fatty buildup insidethe artery wall. Discuss ways to manage this with your health care provider. Atrial Fibrillation (A Fib): In A fib, your heart does not have a normal beat. This may allow clotsto form and puts you at a greater risk for having a stroke. Work with your health care provider to control your A fib. Your doctor may order special medication that helps prevent clots from forming. High blood cholesterol or high blood fats: High cholesterol increases your risk of stroke. Exerciseregularly, but talk to your health care provider first. A diet low in fat and cholesterol can help.If you have any questions about a low fat, low cholesterol diet, you can call our [facility] commodity analyst at [phone] Ext [phone]. The goal for total cholesterol is less than 200, and for LDL or the bad cholesterol is less than 100. Lifestyle Management: You increase your risk of stroke if you are overweight or obese, are not veryactive, or drink too much alcohol. Enjoy a diet rich in fruits and vegetables. Exercise regularly and drink alcohol in moderation or no more than two drinks a day for men and no more than one drink aday for non- women, or don't drink at all. This will help decrease your risk of stroke. Oral Contraceptives: Taking control pills or the pill can be a risk factor for stroke especially if you smoke. Discuss using the oral contraceptives and your risk of stroke with your health lpn care manager. If this is your first ischemic attack, you will need further evaluation by your caregiver. You may need appropriate treatment and lifestyle changes as recommended. A certain number of patients with TIA go on to develop a stroke. It is very important that you follow up, as instructed, with your caregiver or a specialist in order to continue your evaluation and decide on a course of treatment. The failure to follow up in the time frame indicated by your caregiver may lead to worsening of your condition and permanent disability and possible .If you develop signs and symptoms of a stroke, TIME IS OF THE ESSENCE! Call 911. Medications to dissolve a blood clot can only be used within four and a half hours of the onset of symptoms.After that time, treatment of stroke depends on duration of symptoms, severity, and cause. It s important to know and control your risk factors, but it is also important to recognize the signs and symptoms of stroke/TIA and know what to do: Call 911 if any of these things happen: Sudden numbness or weakness of the face, arm, or leg especially on one side of the body. Sudden confusion, trouble speaking, or understanding. Sudden trouble seeing in one or both eyes. Sudden trouble walking, dizziness, loss of balance or coordination Sudden severe headache with no known cause * It is very important for you to follow-up with your Primary Care Doctor and your Neurologist after you go home. Make sure that you keep your doctor visits. Remember: TIME LOST is BRAIN LOST Resources: for more information on strokes, log onto www.[facility].com or www.strokeassociation.org or call the [place] [employer] at . Revised 06/2018 Follow Up Care 06/23/2022 07:09:56 With:Pain Clinic: [facility] [phone] Address:Unknown When: Unknown Comments:Pain clinic With:Dr. Bennett EASLEY Address: [place], [place] [phone] When:07/26/2022 14:10:00 With:Lani Méndez Address: [address] [place] [id number] Business (1) When:06/29/2022 17:00:00 [facility] History of Present illness Narrative* Jasbir Jay MD - 12/10/2021 1:07 AM EDT Images from the original note were not included. EMERGENCY TRIAGE, TREAT AND TRANSPORT (ET3) DOCUMENTATION OF TELEHEALTH VISIT Date / Time: 12/10/2021 / 1245AM Name: Chacho Edwards : 1945 SSN: (Not on file) EMS Agency: [facility] [x] Verbal consent obtained [x] Implied consent - patient with potential emergency medical condition requiring assessment of capacity to refuse treatment and/or transport VITAL SIGNS: see flowsheet documentation Reason for Telehealth Visit: Chief Complaint Patient presents with Fall Fell down while moving stuff landing on her left wrist. Unable to get up and called 911 History of Present Ilness: 76-year-old diabetic female who was moving stuff around the house when she slid to the floor gently as per the EMS. Denies any head injury or loss of consciousness. Impacted her left wrist which issore. Unable to get up and called 911 for help. Patient refusing transfer to the hospital stating she is feeling better other than soreness of her wrist. Additional pertinent PMHx, SocHx, FamHx: DM Review of Systems: Denies the following: Chest pain shortness of breath headache dizziness lightheadedness Exam: General: Awake, no distress ENT: normocephalic, atraumatic Pulmonary: No respiratory distress Cardiovascular: Well perfused Neurologic: Oriented to person, place, time and events. Moving all extremities equally, slight redness and soreness involving the left wrist which does not look deformed as per the EMS Psychiatric: Appropriate. Good insight and judgement. Medical Decision Makin-year-old diabetic female with a ground level fall secondary to mechanical fall. No head injury or loss of consciousness. No apparent injuries other than soreness of the left wrist. Patient states that she can even demonstrate how to dance . Patient advised to take Tylenol for pain control. Seekvisit with a medical provider if he continues to have wrist tenderness in the morning and get imaging. Disposition Supported by Telehealth Assessment: ET3 transport decisions: Refused transport EMS Disposition Reported: Same ET3 Encounter Completed by: Jasbir Jay MD documented in this encounterMetroHealthEvaluation + Plan note No data available for this section [facility] Future Appointments Appointment Date:02/21/2022 10:45:00 AM Scheduled Provider: Location:FT.OCCUPATIONAL Appointment Type:OT 45 (FT) Appointment Date:02/23/2022 01:30:00 PM Scheduled Provider: Location:.OCCUPATIONAL Appointment Type:OT 60 (FT) Appointment Date:02/27/2022 10:00:00 AM Scheduled Provider: Location:FT.OCCUPATIONAL Appointment Type:OT Re-Eval (FT) Appointment Date:02/28/2022 01:00:00 PM Scheduled Provider: Location:.OCCUPATIONAL Appointment Type:OT 60 (FT) Appointment Date:03/02/2022 08:00:00 AM Scheduled Provider: Location:.OCCUPATIONAL Appointment Type:OT 60 (FT) Appointment Date:03/06/2022 08:30:00 AM Scheduled Provider: Location:FT.OCCUPATIONAL Appointment Type:OT 60 (FT) Appointment Date:03/07/2022 10:00:00 AM Scheduled Provider: Location:.OCCUPATIONAL Appointment Type:OT 60 (FT) Appointment Date:03/09/2022 08:30:00 AM Scheduled Provider: Location:.OCCUPATIONAL Appointment Type:OT [facility]Eval ([facility] Future Appointments Appointment Date:08/31/2022 11:00:00 AM Scheduled Provider:Dustin Gonzales MD Location:FT.Pain Mgmt [place] Appointment Type:Pain Management - Follow Up (FT[facility] Future Appointments Appointment Date:06/29/2022 04:00:00 PM Scheduled Provider: Location:.MRI Appointment Type:MRI Brain (FT) Appointment Date:08/31/2022 11:00:00 AM Scheduled Provider:Dustin Gonzales MD Location:FT.Pain Mgmt [place] Appointment Type:Pain Management - Follow Up (FT) Future Scheduled Tests Radiology* MRI Brain w/o Contrast 06/29/22 [facility] Extended [facility] Evaluation + Plan note Future Appointments Appointment Date:12/13/2022 08:00:00 AM Scheduled Provider: Location:[facility] Pain Management Appointment Type:Surgery FT Appointment Date:12/20/2022 11:00:00 AM Scheduled Provider:Dustin Gonzales MD Location:FT.Pain Mgmt [place] Appointment Type:Pain Management - [facility] Future Appointments Appointment Date:01/10/2023 08:00:00 AM Scheduled Provider: Location:[facility] Pain [facility] Appointment Type:Surgery FT Appointment Date:01/19/2023 09:15:00 AM Scheduled Provider:Mirna Bryant PA-C Location:[facility] Appointment Type:Pain Management - [facility]FT[facility] Future Appointments Appointment Date:08/06/2023 01:00:00 PM Scheduled Provider:Radha Farias MD Location:[facility] Appointment Type:URO Office Visit [facility] Evaluation + Plan note Future Appointments Appointment Date:08/06/2023 01:15:00 PM Scheduled Provider:Radha Farias MD Location:[facility]ment [facility]O [facility] Diagnosis Fall, initial encounter- Primary Contusion of left wrist, initial encounter documented in this encounter [facility]Evaluation note* Diagnosis Onset Date Resolution Status CVA (cerebral vascular accident) acute Diabetes acute Hyperlipidemia acute Hypertension acute Impaired mobility and activities of daily living acute Left hemiplegia acute Obesity, morbid, BMI 40.0-49.9 acute Presence of neurostimulator acute [facility] Work Phone: History general Narrative - Reported* Type Description Date Medical History DM w/o complication type II, unc ontrolled Medical History Hypertension Medical History Arthritis Medical History gallbladder disease Medical History Arm paresthesia, right Medical History Edema Medical History Renal insufficiency Medical History DM (diabetes mellitu s) type II controlled, neurological manifestation Medical History OM (onychomycosis) Medical History Toe pain, left Medical History Ankle joint contracture, left Medical History Nondisplaced fractur e of lateral malleolus of left fibula, initial encounter for closed fracture Medical History Toe pain, right Medical History Plantar fasciitis Medical History Onychocryptosis Medical History Paronychia of great toe of left foot Medical History Foot Pain, Left Foot Medical History BMI 38.0-38.9,adult Medical History cataracts Medical History diabetes mallitus Medical History high cholesterol Medical History obesity Surgical History Procedure:stomach sx Surgical History Procedure:bladder repair Surgical History Procedure:Cholecystectomy Surgical History Procedure:tubal ligation Surgical History cataract extraction Surgical History liposuction Surgical History Lt knee arthroscopy-JAB 9 Hospitalization History see surgical history [place] [facility] [employer] Other Hospital Discharge instructions No data available for this section [facility] No data available for this section [facility] Advance Directives No Advanced Directives Records Found Advance Directive Response Recorded Date/ Time Advance Directives No June 20, 2019 3:29pm Chief Complaint and Reason for Visit Chief Complaint M81.0 Chief Complaint CVA w. Left Hemipare sis Reason for Visit CVA (cerebral vascul ar accident) Diabetes Hyperlipidemia Hypertension Impaired mobility and activities of daily living Left hemiplegia Obesity, morbid, BMI 40.0-49.9 Presence of neurostimulator Assessments No Assessments Information Available Summary Purpose Family History No Family History Records FoundNo Family History Records FoundNo Family History Records FoundNo Family History Records Found No data available for this section No data available for this section No Family History Records Found No data available for this section No Family History Records Found Additional Source Comments INFORMATION SOURCE (unrecogn ized section and content) DATE CREATED AUTHOR 05/24/2021 [facility] DATE CREATED AUTHOR AUTHOR'S ORGANIZ ATION 05/28/2021 [facility] DATE CREATED AUTHOR AUTHOR'S ORGANIZ ATION 12/13/2021 [facility] DATE CREATED AUTHOR AUTHOR'S ORGANIZ ATION 08/30/2022 [facility] DATE CREATED AUTHOR AUTHOR'S ORGANIZ ATION 08/04/2023 [facility] DATE CREATED AUTHOR AUTHOR'S ORGANIZ ATION 08/08/2023 [facility] Reason for Visit (unrecogniz ed section and content) Reason Comments Fall Fell down while movi ng stuff landing on her left wrist. Unable to get up and called 911 Care Team (unrecognized sect ion and content) Team Status: Inactive Member Role Status Dates Lani Méndez MD Primary Care Provider Active Delio Gonzales MD Admit Provider, Attending Provider A gregorio Nicolas RN Other Provider Active Katrin Cowan , STEVE Other Provider Active Surekha Dubon RN Other Provider Active Frances Craig RN Other Provider Active Judy Jeong RN Other Provider Active Jerilyn Bruno , STEVE Other Provider Active Amador Caldwell MD Other Provider Active Hilary Morales , CRYPTANALYST Other Provider Active Helene Garcia , DO Other Provider Active Rosales Cavanaugh MD Other Provider Active Damian Lugo , DO Other Provider Active Maxime Palmer MD Other Provider Active Ashley Uribe MD Other Provider Active Jossy Jacobs , ANP-BC Other Provider Active Ester Gonzales MD Other Provider Active Gal Tovar MD Other Provider Active Bhavesh Gonzalez MD Other Provider Active Sherice Vera MD Other Provider Active Aldo Hughes , DO Other Provider Active Yoselin Valencia MD Other Provider Active Asad Taylor MD Other Provider Active Sophie Ruelas , HUMAN RELATIONS TEACHER-C Other Provider Active Wilfrid Huber MD Other Provider Active Caleb Roberts MD Other Provider Active Thiago Monteiro MD Other Provider Active Jillian Edwards , DO Other Provider Active Andrew Lira , DO Other Provider Active Jose David Bowens , DO Other Provider Active Kat Barry , CRYPTANALYST Other Provider Active Timothy Mercado , DO Other Provider Active Fernando Rowe MD Other Provider Active Michelle Byers APRN Other Provider Active Eunice Phipps , STEVE Other Provider Active Team Status: Active Member Role Status Dates Lani Méndez MD Primary Care Provider Active FOR RECORDS PERTAINING TO PATIENTS WHO ARE OR HAVE BEEN ENROLLED IN A CHEMICAL DEPENDENCY/SUBSTANCEABUSE PROGRAM, SOME INFORMATION MAY BE OMITTED. This clinical summary was aggregated from multiple sources. Caution should be exercised in using it in the provision of clinical care. This summary normalizes information from multiple sources, and as a consequence, information in this document may materially change the coding, format and clinical context of patient data. In addition, data may be omitted in some cases. CLINICAL DECISIONS SHOULD BE BASED ON THE PRIMARY CLINICAL RECORDS. [employer] [facility]. provides no warranty or guarantee of the accuracy or completeness of information in this document.
== END 2023-08-24 10:24 | disposition home or self-care (01) ==
LOC: VC 10:23
PROVIDERS: PCP Radiology Diagnostic Radiology; Visit Provider Radiology Diagnostic Radiology
DX: I83.813 Varicose veins of bilateral lower extremities with pain (principal)
CPT/HCPCS: 36478

== ENCOUNTER 2023-08-30 10:46 | Outpatient (OUT) | payer MEDICARE, SELFPAY ==
--- NOTE | 2023-08-30 10:47 | VEIN_ITS ---
Patient Name: CHACHO EDWARDS MR#: [id number] : 1945 Exam Date: 08/30/2023 Ordering Doctor: DR ANGIE NGUYEN M.D. RADIOLOGY REPORT PROCEDURE: FACILITY EST [facility] - OFFICE VISIT FOLLOW UP COMPARISON: VC EXT VENOUS LT LIMITED, 08/30/2023. PROGRESS NOTES: The patient reports improvement in leg symptoms. There has been interval reduction in varicosities. The patient has followed our recommendations to walk 20-30 minutes once or twice per day since the procedure. Physical exam demonstrates decrease in varicosities of the leg. Persistent varicosities are identified along the legs bilaterally. Review of the ultrasound performed the same day demonstrates occlusive thrombus extending throughout the treated vein(s), see separate report, consistent with a successful ablation. No thrombus extending into or beyond the saphenofemoral junction. The patient expressed a desire to proceed with treatment of remaining incompetent varicosities. The patient was informed that treatment was a process and would require several procedures/sessions. [facility] 1. Successful ablation of the left great saphenous vein(s). 2. Persistent varicose veins and lower extremity symptoms. PLAN: 1. Endovenous laser ablation of right great saphenous vein. Nurse notes, history and physical were reviewed and confirmed, see attached forms. The nurse was present throughout the physical exam and consultation Dictated by: Dale Vásquez M.D. on 08/30/2023 at 11:42 Approved by: Dale Vásquez M.D. on 08/30/2023 at 11:42
--- NOTE | 2023-08-30 10:47 | VEIN_ITS ---
Patient Name: CHACHO EDWARDS MR#: [id number] : 1945 Exam Date: 08/30/2023 Ordering Doctor: DR ANGIE NGUYEN M.D. RADIOLOGY REPORT PROCEDURE: VC EXT VENOUS LT LIMITED COMPARISON: None. INDICATIONS: Phlebitis of superficial vein of lt lower extremity I80.02 TECHNIQUE: Lower extremity aponte scale and Duplex Doppler evaluation of the deep venous system from the inguinal ligament through the calf veins. FINDINGS: REGION: Left lower extremity. THROMBI: Negative for DVT. Heat induced thrombus visualized 1.5cm from the SFJ. The heat induced thrombus extends from groin to distal calf. COMPRESSIBILITY: Non-compressible segments corresponding to thrombus FLOW: Areas of no flow corresponding to thrombus OTHER: CONCLUSION: 1. Successful post ablation occlusion of left great saphenous vein. Dictated by: Dale Vásquez M.D. on 08/30/2023 at 11:41 Approved by: Dale Vásquez M.D. on 08/30/2023 at 11:42
--- OUTSIDE RECORDS SUMMARY | 2023-08-30 11:08 | XMS_ITS | CCD ---
Author Name Unknown Address [address] [place] [address] Organization [facility] Care Team Providers Care Silver Spray Worker Name Role Phone Lani Méndez Primary Care Provider Unavailab Daryl Velez Attending Provider Unavailable Lani Méndez Primary Care Physician [phone] Mel Suazo Unavailable Unavailable Sandy Rhoades Unavailable Unavailable Unavailable Primary Care Provider Unavailabl e PROVIDER, UNKNOWN Attending Unavailable PROVIDER, UNKNOWN Admitting Unavailable Rain Frederick Unavailable Unavailable MD Lani Méndez Primary Care Provider MD Delio Gonzales Admit Provider MD Delio Gonzales Attending Provider [phone] STEVE Nicolas Other Provider Unavailable STEVE Cowan Other Provider Unavailable STEVE Dubon Other Provider Unavailable STEVE Craig Other Provider Unavailable STEVE Jeong Other Provider Unavailable Kiana RN Jerilyn Other Provider Unavailable MD Amador Caldwell Other Provider Carmens, ROADWAY DESIGNER Hilary Cobos Other Provider DO Helene Garcia Other Provider MD Rosales Cavanaugh Other Provider [phone] DO Damian Lugo Other Provider MD Maxime Palmer Other Provider MD Ashley Uribe Other Provider [phone] Reynaldo ANP-BC Jossy Other Provider [phone] MD Ester Gonzales Other Provider MD Gal Tovar Other Provider MD Bhavesh [...] Provider DO Jose David Bowens Other Provider [phone] ISIDRO Barry Other Provider DO Timothy Mercado Other Provider [phone] MD Fernando Rowe Other Provider ISIDRO Byers Other Provider [phone] STEVE Phipps Other Provider Unavailable Delio Gonzales Admitting Unavailable Delio Gonzales Attending Unavailable Jonelle Nicolas Consulting Unavailable AllLani garcía Primary Care Unavailable Gearheart, Katrin Consulting Unavailable Surekha Dubon Consulting Unavailable Densestevan, Frances Consulting Unavailable Salmons, Judy Consulting Unavailable Kiana, Jerilyn Consulting Unavailable Paulette, Amador K Consulting Unavailable Dials, Hilary M Consulting Unavailable Helene Garcia Consulting Unavailable [...] Byers Consulting Unavailable Eunice Phipps Consulting Unavailable Daryl Oliver Unavailable JANA SOARES R Attending Unavailable [...] Translations: [ciprofloxacin] Drug Allergy Nausea and vomiting [facility] (20 sources) Clarithromycin; Translations: [clarithromycin] Drug Allergy 06-29-19 itching, Unknown Reaction, Unknown [facility] (20 sources) Metoclopramide; Translations: [metoclopramide] Drug Allergy 06-29-19 Itching, Swelling, Unknown Reaction [facility] Comment on above: confusion (20 sources) pregabalin; Translations: [pregabalin] Drug Allergy 06-29-19 swelling [facility] (20 sources) Sulfamethoxazole / Trimethoprim; Translations: [sulfamethoxazole-t rimethoprim] Drug Allergy edema, dizziness [facility] (20 sources) Sulfonamides (Antibiotic); Translations: [sulfa drugs] Drug allergy itching [facility] (2 sources) Sulfamethoxazole; Translations: [sulfamethoxazole] Drug Allergy 06-29-19 Unknown Reaction [facility] (2 sources) Sulfonamides (Antibiotic); Translations: [Sulfa (Sulfonamide Antibiotics)] Allergy to substance 06-29-19 Unknown Reaction [facility] (2 sources) Trimethoprim; Translations: [trimethoprim] Drug Allergy 06-29-19 Unknown Reaction [facility] (1 source) Clarithromycin Drug Allergy 06-29-19 [facility] (1 source) Metoclopramide Drug Allergy 06-29-19 [facility] (1 source) pregabalin Drug Allergy 06-29-19 [facility] (1 source) Sulfonamides (Antibiotic) Propensity to adverse reactions Unknown [employer] Other (1 source) Metoclopramide; Translations: [Reglan] Drug Allergy [facility] Repository Medications Current Medications Medication Drug [...] Status: Ordered take 2 tablets by mo [facility] every six hours acetaminophen 325 mg / [...] day(s), # 14 tab(s), Refills(s) 0, Pharmacy: [facility] 1986, 162, cm, 09/02/22 12:13:00 EDT, [...] Daily, # 30 tab(s), Refills(s) 0, Pharmacy: [facility] 1986, 163, cm, 06/23/22 7:22:00 EST, [...] Daily, # 30 tab(s), Refills(s) 0, Pharmacy: [facility], 163, cm, 06/23/22 7:22:00 EST, Height/Length Dosing, 130.4, kg, 06/23/22 7:22:00 EST, Weight Dosing Start Date: 06/27/22 Status: Ordered bisacodyl 10 mg rectal suppository (1 source) Stimulant Laxative Start: 07-12-2022 Bisacodyl Active 10 MG ID Daily July 12, 2022 12:00am cefpodoxime 100 [...] day(s), # 12 cap(s), Refills(s) 0, Pharmacy: [facility] 1985, 162, cm, 01/10/23 7:41:00 EDT, [...] day(s), # 14 tab(s), Refills(s) 0, Pharmacy: [facility], 162, cm, 12/31/22 22:40:00 EDT, Height/Length Dosing, 131, kg, 12/31/22 22:40:00 EDT, Weight Dosing Start Date: 12/31/22 Stop Date: 01/07/23 Status: Ordered diclofenac sodium 0.01 mg/mg topical gel (8 sources) Nonsteroidal Anti-inflammatory Drug Start: 06-01-2022 diclofenac topical 1% gel 1 taylor, Topical, QID for pain, 100 gram, Refill(s) 0, [facility], 163, cm, 06/01/22 14:39:00 EST, [...] 1 mos at bedtime, 2x/week for maintenance, [facility], 163, cm, 05/21/23 13:47:00 EST, [...] day(s), # 360 tab(s), Refills(s) 0, Pharmacy: [facility], 163, cm, 05/21/23 13:47:00 EST, [...] BID, # 60 tab(s), Refills(s) 0, Pharmacy: [facility], 163, cm, 06/23/22 7:22:00 EST, Height/Length Dosing, 130.4, kg, 06/23/22 7:22:00 EST, Weight Dosing Start Date: 06/27/22 Status: Ordered Start: 01-06-2021 End: 05-31-2023 take 2 tablets by mouth twice daily gabapentin 600 mg Tab 1,200 mg = 2 tab(s), Oral, BID, X 90 day(s), # 360 tab(s), Refills(s) 0, Pharmacy: [facility] 1986, 162, cm, 03/02/23 11:42:00 EDT, [...] BID, # 60 tab(s), Refills(s) 0, Pharmacy: [facility], 163, cm, 06/23/22 7:22:00 EST, Height/Length [...] Daily, # 30 tab(s), Refills(s) 11, Pharmacy: [facility] 1986, 163, cm, 05/21/23 13:47:00 EST, [...] 06/21/17 Status: Ordered take 1 capsule by [facility] every twenty-four hours Omeprazole 40 MG 1 [...] pain, # 20 tab(s), Refills(s) 0, Pharmacy: [facility] 1986, 162, cm, 01/10/23 7:41:00 EDT, [...] day(s), # 6 tab(s), Refills(s) 0, Pharmacy: [facility], 162, cm, 12/31/22 22:40:00 EDT, Height/Length [...] sources) Long-term current use of insulin; Translations: [jail (current) use of insulin] Episodic Other and [...] Treatmenton 06-18 Consent for Treatment [id number]#1 .00TIFF Normal [facility] Physician Orderon 07-05-2023 Physician Order [id number]# 1.00TIFF Normal [facility] Renal Panelon 07-05-2023 Albumin [Mass/Vol] 3.8 g/dL Normal 3.3-5.0 [facility] Comment on above: Performed By: #### 1 [id number], [id number] #### [facility] [address] [place] [address] Anion gap [Moles/Vol] 11 mmol/L Normal - [facility] Comment on above: Performed By: #### 1 [id number], [id number] #### [facility] [address] [place] [address] BUN/Creat Ratio 16 No Units Normal 04-06 [facility] Comment on above: Performed By: #### 1 [id number], [id number] #### [facility] [address] [place] [address] Calcium [Mass/Vol] 8.3 mg/dL Low 8.9-11.1 [facility] Comment on above: Performed By: #### 1 [id number], [id number] #### [facility] [address] [place] [address] Chloride [Moles/Vol] 111 mmol/L Normal 101-111 [facility] Comment on above: Performed By: #### 1 [id number], [id number] #### [facility] [address] [place] [address] CO2 [Moles/Vol] 25 mmol/L Normal 21-31 [facility] Comment on above: Performed By: #### 1 [id number], [id number] #### [facility] [address] [place] [address] Creatinine [Mass/Vol] 1.4 mg/dL High 0.5-1.3 [facility] Comment on above: Performed By: #### 1 [id number], [id number] #### [facility] [address] [place] [address] Glucose [Mass/Vol] 100 mg/dL Normal 55-199 [facility] Comment on above: Performed By: #### 1 [id number], [id number] #### [facility] [address] [place] [address] Phosphate [Mass/Vol] 3.1 mg/dL Normal 1.9-4.6 [facility] Comment on above: Performed By: #### 1 [id number], [id number] #### [facility] [address] [place] [address] Potassium [Moles/Vol] 4.6 mmol/L Normal 3.5-5.3 [facility] Comment on above: Performed By: #### 1 [id number], [id number] #### [facility] [address] [place] [address] Sodium [Moles/Vol] 142 mmol/L Normal 135-145 [facility] Comment on above: Performed By: #### 1 [id number], [id number] #### [facility] [address] [place] [address] Urea nitrogen [Mass/Vol] 23 mg/dL High 5-21 [facility] Comment on above: Performed By: #### 1 [id number], [id number] #### [facility] [address] [place] [address] U Protein/Creat Ratioon 06-18 U Creatinine 129.7 mg/dL Invalid Interpretation Code [facility] Comment on above: Performed By: #### 1 [id number], [id number] #### [facility] [address] [place] [address] U Prot/Creat Ratio 8.80 mg/gm Cr Normal .00-200.00 [facility] Comment on above: Performed By: #### 1 [id number], [id number] #### [facility] [address] [place] [address] Ur Total Protein 11.4 mg/dL Invalid Interpretation Code [facility] Comment on above: Performed By: #### 1 [id number], [id number] #### [facility] [address] [place] [address] URINALYSISOrdered By: Brent Dumont on 07-05-2023 Bilirubin [...] PM) Normal Negative [facility] UA Auto SS [place].plasma/[place]. RBC (Bld) [Mass ratio] 0-3 /HPF Normal 0-3/HPF [facility] UA A uto SS Nitrite Ql (U) Negative (07/05/23 1:19 PM) Normal Negative [facility] UA Auto SS pH (U) 5.5 *NA* (07/05/23 1:19 PM) Invalid Interpretation Code 5.0 - 9.0 [facility] UA Auto SS Protein (U) [Mass/Vol] Negative (07/05/23 1:19 PM) Normal Negative [facility] UA Auto SS Specific gravity (U) [Rel density] 1.025 *NA* (07/05/23 1:19 PM) Invalid Interpretation Code 1.005 - 1.030 [facility] UA Auto SS UA Spec Desc Clean Catch (07/05/23 1:19 PM) Normal [facility] UA Auto SS Urobilinogen Qn (U) 0.8732407 {Dasia'U}/dL Normal 0.0 - 1.0 EU/dL [facility] UA Auto SS WBC Auto Ql (U) Negative (07/05/23 1:19 PM) Normal Negative [facility] UA Auto SS WBC LM.HPF (Urine sed) [#/Area] 0-5 /HPF Normal 0-5/HPF [facility] UA Auto SS Urinalysison 07-05-2023 Bilirubin Ql (U) Negative Normal Negative [facility] Comment on above: Performed By: #### 1 [id number], [id number] #### [facility] [address] [place] [address] Clarity (U) CLEAR Normal Clear [facility] Comment on above: Performed By: #### 1 [id number], [id number] #### [facility] [address] [place] [address] Color (U) YELLOW Normal Yellow [facility] Comment on above: Performed By: #### 1 [id number], [id number] #### [facility] [address] [place] [address] Epithelial cells.squamous LM.HPF (Urine sed) [#/Area] 3-4 Normal 0-2 [facility] Comment on above: Performed By: #### 1 [id number], [id number] #### [facility] [address] [place] [address] Glucose Test strip (U) [Mass/Vol] Negative Normal Negative [facility] Comment on above: Performed By: #### 1 [id number], [id number] #### [facility] [address] [place] [address] Hemoglobin Ql (U) Negative Normal Negative [facility] Comment on above: Performed By: #### 1 [id number], [id number] #### [facility] [address] [place] [address] Ketones (U) [Mass/Vol] Negative Normal Negative [facility] Comment on above: Performed By: #### 1 [id number], [id number] #### [facility] [address] [place] [address] [place] [address].plasma/[place]. RBC (Bld) [Mass ratio] 0-3 Normal 0-3 [facility] Comment on above: Performed By: #### 1 [id number], [id number] #### [facility] [address] [place] [address] Nitrite Ql (U) Negative Normal Negative [facility] Comment on above: Performed By: #### 1 [id number], [id number] #### [facility] [address] [place] [address] pH (U) 5.5 [pH] Invalid Interpretation Code 5.0-9.0 [facility] Comment on above: Performed By: #### 1 [id number], [id number] #### [facility] [address] [place] [address] Protein (U) [Mass/Vol] Negative Normal Negative [facility] Comment on above: Performed By: #### 1 [id number], [id number] #### [facility] [address] [place] [address] Specific gravity (U) [Rel density] 1.025 Invalid Interpretation Code 1.005-1.030 [facility] Comment on above: Performed By: #### 1 [id number], [id number] #### [facility] [address] [place] [address] Type of Urine collection method Clean Catch Normal [facility] Comment on above: Performed By: #### 1 [id number], [id number] #### [facility] [address] [place] [address] Urobilinogen Qn (U) 0.2 {Dasia'U}/dL Normal 0.0-1.0 [facility] Comment on above: Performed By: #### 1 4027336, [id number] #### [facility] [address] [place] [address] WBC Auto Ql (U) Negative Normal Negative [facility] Comment on above: Performed By: #### 1 5279071, [id number] #### [facility] [address] [place] [address] WBC LM.HPF (Urine sed) [#/Area] 0-5 Normal 0-5 [facility] Comment on above: Performed By: #### 1 [id number], [id number] #### [facility] [address] [place] [address] eGFRon 07-05-2023 eGFR 39 mL/min/1.73 m2 Low >=59 [facility] Comment on above: Order Comment: Order added by Discern Expert. Performed By: #### 1 [id number], [id number] #### [facility] [address] [place] [address] Formson 05-22-2023 Forms [id number]#1 .00TIFF Normal [facility] Physician Referralon 023 Physician Referral [id number]#1 .00TIFF Normal [facility] Screenson 05-22-2023 Screens [id number]#1 .00TIFF Normal [facility] Ambulatory Visit Summaryon 1 07-22-2022 Ambulatory Visit Summary CHACHO EDWARDS :1945 Visit Date:05/21/2023 Ambulatory Visit Instructions Your Diagnosis Recurrent UTI Urge incontinence Tests Performed Urnls Dip Stick Auto w/o Microscopy POC 01661 Your Care Team Attending Physician - Radha [...] VELASQUEZ, Radha Kirkpatrick Where: [facility] Patient Educationon 05-21-20 Patient Education Obstetrics and [...] this condition includes: ? Antibiotic medicine. ? Yyze-itq-wnuujjy medicines to treat discomfort. ? Drinking enough [...] these instructions at home: Medicines ? Take ulpr-oaz-jumpesg and prescription medicines only as told by [...] Document Revie (more content not included)... Normal [facility] Urology Office/Clinic Noteon 05-21-2023 Urology Office/Clinic [...] coli, 5k mixed skin Pt presented to [facility] ER 12/31/22 w/ complaints of burning, bleeding, [...] SEs which (more content not included)... Normal [facility] Comment on above: Result Comment: Elec tronically Signed By: Jarrett VELASQUEZ, Radha Kirkpatrick\.br\Date and Time Signed: 05/21/23 18:53 EST\.br\Electronically Co-Signed By: Jacqueline Saleh\.br\Date and Time Co-Signed: 05/21/23 14:11 EST\.br\Electronically Co-Signed By: Jacqueline Saleh\.br\Date and Time Co-Signed: 05/21/23 14:16 EST\.br\Electronically Co-Signed By: Jacqueline Saleh\.br\Date and Time Co-Signed: 05/21/23 14:28 EST OT - Otheron 04-06-2023 OT - Other [id number]# 1.00TIFF Normal [facility] Consent for Procedure/Surger yon 03-15-2023 Consent for Procedure/Surgery [id number]# 1.00CD:127 Normal [facility] Discharge Instructionson Discharge Instructions [id number]# 1.00CD:127 Normal [facility] IntraOperative Documentson 0 03-15-2023 IntraOperative Documents [id number]# 1.00CD:127 Normal [facility] Capillary Glucose POCon 02-17 Glucose [Mass/Vol] 147 mg/dL High 55-99 [facility] Comment on above: Performed By: #### 2 [id number] #### [facility] [address] [place] [address] Consent for Treatmenton 02-17 Consent for Treatment [id number]# 1.00CD:127 Normal [facility] Main OR Intraoperative Recor don 03-14-2023 Main OR Intraoperative Record IntraOp Document Type FTPM Summary Primary Physician: Esteban Francois DO Finalized Date/Time: 03/14/23 13:59:31 Pt. Name: CHACHO EDWARDS Ayo Tobias/Sex: 1945 Female Med Rec #: [id number] Physician: Esteban Francois DO Financial #: [id number] Pt. Type: P Room/Bed: / Admit/Disch: 03/14/23 [...] Tracy Foy Role Performed Surgeon - Primary Accounting Technician - Primary Scrub - Primary Time In 03/14/23 13:50:00 03/14/23 13:50:00 03/14/23 13:50:00 Time Out 03/14/23 14:00:00 03/14/23 14:00:00 03/14/23 14:00:00 Procedure SACROILIAC JOINT SACROILIAC JOINT SACROILIAC JOINT INJECTION(Bilateral) INJECTION(Bilateral) INJECTION(Bilateral) Comments Last Modified By: Cong WILSON, Linnette Gar RN, Linnette Wang RN 03/14/23 13:59:27 03/14/23 13:59:27 03/14/23 13:59:27 Entry 4 Case Attendee Sophie Hendricks Role Performed Clam Shucker Time In 03/14/23 13:50:00 Time Out 03/14/23 [...] and tissue Entry 1 Skin Integrity Intact, Collins, Warm, and Skin Abnormality No Dry Outcomes [...] By: Cong (more content not included)... Normal [facility] Main OR Preoperative Recordo n 03-14-2023 Main OR Preoperative Record Holding Area Document Type FTPM Summary Primary Physician: Esteban Francois DO Finalized Date/Time: 03/14/23 13:10:52 Pt. Name: CHACHO EDWARDS/Sex: 1945 Female Med Rec #: [id number] Physician: Esteban Francois DO Financial #: [id number] Pt. Type: P Room/Bed: / Admit/Disch: 03/14/23 [...] By: Tiffany Feliciano RN 03/14/23 13:10 Normal [facility] Patient Correspondenceon Patient Correspondence [id number]# 1.00CD:127 [facility] Consent for Treatmenton 02-16 Consent for Treatment [id number]# 1.00CD:127 Normal [facility] Consultation Noteon 03-02-20 Consultation Note Patient: [...] BID, # 60 tab(s), Refills(s) 0, Pharmacy: [facility], 163, cm, 06/23/22 7:22:00 EST, Height/Length Dosing, 130.4, kg, 06/23/22 7:22:00 EST, Weight Dosing aspirin 81 mg Oral EC Tab: 81 mg = 1 tab(s), Oral, Daily, # 30 tab(s), Refills(s) 0, Pharmacy: [facility], 163, cm, 06/23/22 7:22:00 EST, Height/Length Dosing, 130.4, kg, 06/23/22 7:22:00 EST, Weight Dosing atorvastatin 80 mg Tab: 80 mg = 1 tab(s), Oral, Daily, # 30 tab(s), Refills(s) 0, Pharmacy: [facility], 163, cm, 06/23/22 7:22:00 EST, Height/Length Dosing, 130.4, kg, 06/23/22 7:22:00 EST, Weight Dosing gabapentin 600 mg Tab: 1,200 mg = 2 tab(s), Oral, BID, X 90 day(s), # 360 tab(s), Refills(s) 0, Pharmacy: [facility], 162, cm, 03/02/23 11:42:00 EDT, Height/Length Dosing, 131, kg, 12/31/22 22:40:00 EDT, Weight Dosing oxyCODONE 5 mg Tab: 5 mg = 1 tab(s), Oral, q6hr, PRN for pain, # 20 tab(s), Refills(s) 0, Pharmacy: [facility], 162, cm, 01/10/23 7:41:00 EDT, Height/Length [...] All Problems Acid reflux / SNOMED CT 153062796 / Confirmed Generalized osteoarthritis / SNOMED CT 035504401 / Confirmed History of deep vein thrombosis / SNOMED CT 2988186519 / Confirmed left leg Blind left eye / SNOMED CT 513492652 / Confirmed Arthritis / SNOMED CT 9233660 / Confirmed History of obesity / SNOMED CT 6857416260 / Confirmed Hemiplegia of left nondominant side as late effect of cerebral infarction / SNOMED CT 2387383319 / Confirmed Hemianopia, homonymous, left / SNOMED CT 01402750 / Confirmed Diabetes mellitus with polyneuropathy / SNOMED CT 1162818353 / Confirmed DJD (degenerative joint disease) of knee / SNOMED CT 286956747 / Confirmed Lumbosacral radiculopathy / SNOMED CT 0256473 / Confirmed Seizure disorder, focal motor / SNOMED CT 080811222 / Confirmed Chronic kidney disease due to diabetes mellitus / SNOMED CT 2878744079 / Confirmed Chronic kidney disease, stage 3b / SNOMED CT 0431562954 / Confirmed History of CVA (cerebrovascular accident) without residual deficits / SNOMED CT 5639649806 / Confirmed Resolved: Fracture / SNOMED CT 767278606 L ulnar styloid fx with routine healing, Pain/paresthesia R hand Resolved: At risk for falls / SNOMED CT 205366207 Problem added when Risk for Falls Careplan was initiated. Resolved due to patient discharge. Resolved: At Risk For Unstable Blood Glucose Level / IMO 4199620 Problem added due to documentation that the patient has diabetes. Resolved due to patient discharge. Resolved: At risk for falls / SNOMED CT 094447617 Problem added when Risk for Falls Careplan was initiated. Resolved due to patient di (more content not included)... [facility] Comment on above: Result Comment: Elec tronically Signed By: Mirna Bryant PA-C\.br\Date and Time Signed: 03/02/23 11:50 EDT\.br\Electronically Co-Signed By: Esteban Francois DO\.br\Date and Time Co-Signed: 03/06/23 12:51 EDT Office/Clinic Note-Physician on 03-02-2023 Office/Clinic Note-Physician [id number]# 1.00CD:127 [facility] Patient Correspondenceon Patient Correspondence [id number]# 1.00CD:127 [facility] Patient Correspondence [id number]# 1.00CD:127 [facility] Patient History Officeon Patient History Office [id number] [id number]# 1.00CD:127 [facility] HIPAA Forms Officeon 023 HIPAA Forms Office [id number]#1 .00CD:127 [facility] PT - Consentson 02-14-2023 PT - Consents [id number]#1 .00CD:127 [facility] Consent for Treatmenton 01-16 Consent for Treatment [id number]#1 .00CD:127 Normal [facility] OT - Orderson 01-25-2023 OT - Orders [id number]# 1.00CD:127 Normal [facility] Outside Recordson 01-25-2023 Outside Records [id number]# 1.00CD:127 Normal [facility] Consent for Treatmenton Consent for Treatment [id number]# 1.00CD:127 Normal [facility] Consultation Noteon 01-20-20 Consultation Note Patient: [...] BID, # 60 tab(s), Refills(s) 0, Pharmacy: [place] [address], 163, cm, 06/23/22 7:22:00 EST, Height/Length Dosing, 130.4, kg, 06/23/22 7:22:00 EST, Weight Dosing aspirin 81 mg Oral EC Tab: 81 mg = 1 tab(s), Oral, Daily, # 30 tab(s), Refills(s) 0, Pharmacy: [place] [address], 163, cm, 06/23/22 7:22:00 EST, Height/Length Dosing, 130.4, kg, 06/23/22 7:22:00 EST, Weight Dosing atorvastatin 80 mg Tab: 80 mg = 1 tab(s), Oral, Daily, # 30 tab(s), Refills(s) 0, Pharmacy: [facility], 163, cm, 06/23/22 7:22:00 EST, Height/Length Dosing, 130.4, kg, 06/23/22 7:22:00 EST, Weight Dosing gabapentin 600 mg Tab: 1,200 mg = 2 tab(s), Oral, BID, X 90 day(s), # 360 tab(s), Refills(s) 0, Pharmacy: [facility], 162, cm, 12/06/22 11:37:00 EDT, Height/Length Dosing, 131.1, kg, 12/06/22 11:37:00 EDT, Weight Dosing oxyCODONE 5 mg Tab: 5 mg = 1 tab(s), Oral, q6hr, PRN for pain, # 20 tab(s), Refills(s) 0, Pharmacy: [facility], 162, cm, 01/10/23 7:41:00 EDT, Height/Length [...] All Problems Acid reflux / SNOMED CT 272047642 / Confirmed Generalized osteoarthritis / SNOMED CT 375701264 / Confirmed History of deep vein thrombosis / SNOMED CT 4571320537 / Confirmed left leg Blind left eye / SNOMED CT 504697074 / Confirmed Arthritis / SNOMED CT 2582669 / Confirmed History of obesity / SNOMED CT 6787047287 / Confirmed Hemiplegia of left nondominant side as late effect of cerebral infarction / SNOMED CT 8219605409 / Confirmed Hemianopia, homonymous, left / SNOMED CT 02936169 / Confirmed Diabetes mellitus with polyneuropathy / SNOMED CT 9251427569 / Confirmed DJD (degenerative joint disease) of knee / SNOMED CT 727399598 / Confirmed Lumbosacral radiculopathy / SNOMED CT 7238303 / Confirmed Seizure disorder, focal motor / SNOMED CT 893361162 / Confirmed Chronic kidney disease due to diabetes mellitus / SNOMED CT 4649809652 / Confirmed Chronic kidney disease, stage 3b / SNOMED CT 9284942207 / Confirmed History of CVA (cerebrovascular accident) without residual deficits / SNOMED CT 3074187813 / Confirmed Resolved: Fracture / SNOMED CT 238889797 L ulnar styloid fx with routine healing, Pain/paresthesia R hand Resolved: At risk for falls / SNOMED CT 002615480 Problem added when Risk for Falls Careplan was initiated. Resolved due to patient discharge. Resolved: At Risk For Unstable Blood Glucose Level / IMO 8414438 Problem added due to documentation that the patient has diabetes. Resolved due to patient discharge. Resolved: At risk for falls / SNOMED CT 687025134 Problem added when Risk for Falls Careplan was initiated. Resolved due to patient discharge. Resolved: DVT - Deep vein thrombosis / SNOMED CT 7589827636 leg Canceled: At Risk For Unstable (more content not included)... Normal [facility] Comment on above: Result Comment: Elec tronically Signed By: Mirna Bryant PA-C\.br\Date and Time Signed: 01/19/23 09:42 EDT\.br\Electronically Co-Signed By: Dustin Gonzales MD\.br\Date and Time Co-Signed: 01/19/23 19:50 EDT Office/Clinic Note-Physician on 01-19-2023 Office/Clinic Note-Physician [id number]# 1.00CD:127 [facility] Patient Correspondenceon Patient Correspondence [id number]# 1.00CD:127 [facility] Patient Correspondence [id number]# 1.00CD:127 [facility] Patient History Officeon Patient History Office [id number]# 1.00CD:127 [facility] CHEMISTRYOrdered By: Lab ROP User on 01-10-2023 Glucose [Mass/Vol] 114 mg/dL High 55 - 99 mg/dL [facility] POC Subsection POC Device SN [id number] Invalid Interpretation Code [facility] P[facility] Subsection POC User ID [id number] Invalid Interpretation Code [facility] P[facility] Subsection POC Username STEFANO FRANCO Invalid Interpretation Code [facility] P[facility] Subsection Capillary Glucose POCon 12-17 Glucose [Mass/Vol] 114 mg/dL High 55-99 [facility] Comment on above: Performed By: #### 2 [id number] ####[facility] [address] [place] [address] Consent for Anesthesiaon Consent for Anesthesia [id number]#1 .00CD:127 [facility] Consent for Procedure/Surger yon 01-10-2023 Consent for Procedure/Surgery [id number]#1 .00CD:127 [facility] Consent for Treatmenton 12-17 Consent for Treatment [id number]# 1.00CD:127 [facility] Discharge Instructionson Discharge Instructions [id number]#1 .00CD:127 [facility] IntraOperative Documentson 0 01-10-2023 IntraOperative Documents [id number]# 1.00CD:127 [facility] IntraOperative Documents [id number]#1 .00CD:127 [facility] Main OR Intraoperative Recor don 01-10-2023 Main OR Intraoperative Record IntraOp Document Type FTPM Summary Primary Physician: Dustin Gonzales MD Finalized Date/Time: 01/10/23 09:38:47 Pt. Name: CHACHO EDWARDS/Sex: 1945 Female Med Rec #: [id number] Physician: Dustin Gonzales MD Financial #: [id number] Pt. Type: P Room/Bed: / Admit/Disch: 01/10/23 06:58:32 - Institution: Case Times FTPM Entry 1 Patient Times In Room 01/10/23 08:21:00 Out Room 01/10/23 09:00:00 Procedure Times Start 01/10/23 08:35:00 Stop 01/10/23 08:56:00 Anesthesia Times Start 01/10/23 08:21:00 Stop 01/10/23 09:00:00 Last Modified By: Moe WILSON, Tracy Foy 01/10/23 09:03:16 Case Attendance FTPM Entry 1 Entry 2 Entry 3 Case Attendee Darius BENITES, Kyle Gonzales MD, Dustin Rosa RN, Tracy Foy Role Performed Anesthesiologist Surgeon - Primary Accounting Technician - Primary School Health Assistant Time In 01/10/23 08:21:00 01/10/23 08:21:00 01/10/23 08:21:00 Time Out 01/10/23 09:00:00 01/10/23 09:00:00 01/10/23 09:00:00 Procedure SPINAL CORD STIMULATOR SPINAL CORD STIMULATOR SPINAL CORD STIMULATOR IMPLANT(.) IMPLANT(.) IMPLANT(.) Comments [facility] Last Modified By: Moe RN, Tracy Rosa RN, Tracy Rosa RN, Tracy Foy 01/10/23 09:03:17 01/10/23 09:11:43 01/10/23 09:03:17 Entry 4 Entry 5 Entry 6 Case Attendee Edison WILSON, Sade Jones, Pam Guevara Jr., DO, Yong Zamorano Role Performed Scrub - Primary Clam Shucker Anesthesiologist of Record Time In 01/10/23 08:21:00 [...] and tissue Entry 1 Skin Integrity Intact, Collins, Warm, and Skin Abnormality No Dry Outcomes [...] patient, evaluat (more content not included)... Normal [facility] Main OR Preoperative Recordo n 01-10-2023 Main OR Preoperative Record Holding Area Document Type FTPM Summary Primary Physician: Dustin Gonzales MD Finalized Date/Time: 01/10/23 07:53:10 Pt. Name: CHACHO EDWARDS Ayo GalvinB./Sex: 1945 Female Med Rec #: [id number] Physician: Dustin Gonzales MD Financial #: [id number] Pt. Type: P Room/Bed: / Admit/Disch: 01/10/23 [...] Comment - Adult sister in law- [facility] postop adult Supervision supervision available Case Cancelled in No Holding Area see comments below for reason Last Modified By: Soila Franco RN 01/10/23 07:43:55 Finalized By: Soila Franco RN Document Signatures Signed By: Soila Franco RN 01/10/23 07:53 Normal [facility] Progress Note-Physicianon Progress Note-Physician Patient: CHACHO EDWARDS Age: 77 years Sex: Female : 1945 Associated Diagnoses: None Author: Yong Guevara Jr., DO Postoperative Information Postoperative disposition: Postoperative disposition: To PACU. Optimetrix number: Optimetrix number [id number]. Anesthetic utilized: Monitored anesthesia care. Physical Examination Vital signs stable. Pain Assessment: Controlled. General: Awake, Alert, Appropriate. Respiratory: Adequate air exchange, Equal bilateral chest wall expansion, Non-labored. Cardiovascular: Stable, Normal peripheral perfusion. Neurological: Normal sensory function. Assessment Anesthetic outcome No anesthetic complications noted. Review / Management Condition: Stable. Plan Transfer/Discharge: Transfer/Discharge Discharge when meets criteria. Normal [facility] Comment on above: Result Comment: Elec [...] BID, # 60 tab(s), Refills(s) 0, Pharmacy: [facility], 163, cm, 06/23/22 7:22:00 EST, Height/Length Dosing, 130.4, kg, 06/23/22 7:22:00 EST, Weight Dosing aspirin 81 mg Oral EC Tab: 81 mg = 1 tab(s), Oral, Daily, # 30 tab(s), Refills(s) 0, Pharmacy: [facility], 163, cm, 06/23/22 7:22:00 EST, Height/Length Dosing, 130.4, kg, 06/23/22 7:22:00 EST, Weight Dosing atorvastatin 80 mg Tab: 80 mg = 1 tab(s), Oral, Daily, # 30 tab(s), Refills(s) 0, Pharmacy: [facility], 163, cm, 06/23/22 7:22:00 EST, Height/Length Dosing, 130.4, kg, 06/23/22 7:22:00 EST, Weight Dosing gabapentin 600 mg Tab: 1,200 mg = 2 tab(s), Oral, BID, X 90 day(s), # 360 tab(s), Refills(s) 0, Pharmacy: [facility], 162, cm, 12/06/22 11:37:00 EDT, [...] All Problems Acid reflux / SNOMED CT 376309690 / Confirmed Arthritis / SNOMED CT 7248334 / Confirmed Blind left eye / SNOMED CT 745832240 / Confirmed Chronic kidney disease due to diabetes mellitus / SNOMED CT 9030754662 / Confirmed Chronic kidney disease, stage 3b / SNOMED CT 2130754854 / Confirmed Diabetes mellitus with polyneuropathy / SNOMED CT 5189824588 / Confirmed DJD (degenerative joint disease) of knee / SNOMED CT 544339169 / Confirmed Generalized osteoarthritis / SNOMED CT 809651572 / Confirmed Hemianopia, homonymous, left / SNOMED CT 56009326 / Confirmed Hemiplegia of left nondominant side as late effect of cerebral infarction / SNOMED CT 3192249591 / Confirmed History of CVA (cerebrovascular accident) without residual deficits / SNOMED CT 3566636908 / Confirmed History of deep vein thrombosis / SNOMED CT 4892475292 / Confirmed left leg History of obesity / SNOMED CT 6570231145 / Confirmed Lumbosacral radiculopathy / SNOMED CT 5857435 / Confirmed Seizure disorder, focal motor / SNOMED CT 931540520 / Confirmed Resolved: At risk for falls / SNOMED CT 077105857 Problem added when Risk for Falls Careplan was initiated. Resolved due to patient discharge. Resolved: At risk for falls / SNOMED CT 309152841 Problem added when Risk for Falls Careplan was initiated. Resolved due to patient discharge. Resolved: At Risk For Unstable Blood Glucose Level / IMO 8872194 Problem added due to documentation that the patient has diabetes. Resolved due to patient discharge. Resolved: DVT - Deep vein thrombosis / SNOMED CT 4719145779 leg Resolved: Fracture / SNOMED CT 022437565 (more content not included)... Normal [facility] Comment on above: Result Comment: Elec [...] Locations R1: This test was performed at: [facility], [address] [place] [address], [address] , , [facility] Comment on above: Performed By: #### 1 [id number], [id number] ####[place] [id number] CHEMISTRYOrdered By: SYSTEM SYSTEM on 01-03-2023 Albumin [Mass/Vol] 3.8 g/dL Normal 3.3 - 5.0 gm/dL [facility] Remisol Anion gap [Moles/Vol] 12 mmol/L Normal 6 - 16 mEq/L [facility] Remisol Calcium [Mass/Vol] 8.8 mg/dL Low 8.9 - 11. 1 mg/dL [facility] Remisol Chloride [Moles/Vol] 111 mmol/L Normal 101 - 1 11 mmol/L [facility] Remisol CO2 [Moles/Vol] 23 mmol/L Normal 21 - 31 mmol/L [facility] Remisol Creatinine [Mass/Vol] 1.6 mg/dL High 0.5 - 1.3 mg/dL [facility] Remisol GFR/1.73 sq M.predicted among non-blacks MDRD (S/P/Bld) [Vol rate/Area] 33 mL/min/1.73 m2 Low >=59mL/min/ 1.73 m2 [facility] Chem S Glucose [Mass/Vol] 147 mg/dL Normal 55 - 199 mg/dL [facility] Remisol Phosphate [Mass/Vol] 3.5 mg/dL Normal 1.9 - 4 .6 mg/dL [facility] Remisol Potassium [Moles/Vol] 4.5 mmol/L Normal 3.5 - 5.3 mmol/L [facility] Remisol Sodium [Moles/Vol] 141 mmol/L Normal 135 - 145 mmol/L [facility] Remisol Urea nitrogen [Mass/Vol] 32 mg/dL High 5 - 21 mg/dL [facility] Remisol Urea nitrogen/Creatinine [Mass ratio] 20 mg/mg Normal 10 - 20 [facility] Remisol CHEMISTRYOrdered By: Ruth Dumont on 01-03-2023 Albumin Elph (U) [Mass fraction] mg/dL Invalid Interpretation Code [facility] Remisol Creatinine (U) [Mass/Vol] 58.8 mg/dL Invalid Interpretation Code [facility] Remisol U Prot/Creat Ratio [facility] Invalid Interpretation Code 0.00 - 200.00 [facility] Remisol Consent for Treatmenton 12-16 Consent for Treatment [id number]#1 .00CD:127 Normal [facility] Physician Orderon 01-03-2023 Physician Order [id number]# 1.00CD:127 Normal [facility] Renal Panelon 01-03-2023 Albumin [Mass/Vol] 3.8 g/dL Normal 3.3-5.0 [facility] Comment on above: Performed By: #### 1 [id number], [id number] #### [facility] [address] [place] [address] Anion gap [Moles/Vol] 12 mmol/L Normal 6-16 [facility] Comment on above: Performed By: #### 1 [id number], [id number] #### [facility] [address] [place] [address] Calcium [Mass/Vol] 8.8 mg/dL Low 8.9-11.1 [facility] Comment on above: Performed By: #### 1 [id number], [id number] #### [facility] [address] [place] [address] Chloride [Moles/Vol] 111 mmol/L Normal 101-111 [facility] Comment on above: Performed By: #### 1 [id number], [id number] #### [facility] [address] [place] [address] CO2 [Moles/Vol] 23 mmol/L Normal 21-31 [facility] Comment on above: Performed By: #### 1 [id number], [id number] #### [facility] [address] [place] [address] Creatinine [Mass/Vol] 1.6 mg/dL High 0.5-1.3 [facility] Comment on above: Performed By: #### 1 [id number], [id number] #### [facility] [address] [place] [address] Glucose [Mass/Vol] 147 mg/dL Normal 55-199 [facility] Comment on above: Result Comment: If t his glucose result represents a fasting glucose, interpretation should refer to the following reference range: 55-99 mg/dL Performed By: #### 1 [id number], [id number] #### [facility] [address] [place] [address] Phosphate [Mass/Vol] 3.5 mg/dL Normal 1.9-4.6 [facility] Comment on above: Performed By: #### 1 [id number], [id number] #### [facility] [address] [place] [address] Potassium [Moles/Vol] 4.5 mmol/L Normal 3.5-5.3 [facility] Comment on above: Performed By: #### 1 [id number], [id number] #### [facility] [address] [place] [address] Sodium [Moles/Vol] 141 mmol/L Normal 135-145 [facility] Comment on above: Performed By: #### 1 [id number], [id number] #### [facility] [address] [place] [address] Urea nitrogen [Mass/Vol] 32 mg/dL High 5-21 [facility] Comment on above: Performed By: #### 1 [id number], [id number] #### [facility] [address] [place] [address] Urea nitrogen/Creatinine [Mass ratio] 20 No Units Normal 10-20 [facility] Comment on above: Performed By: #### 1 [id number], [id number] #### [facility] [address] [place] [address] U Protein/Creat Ratio 07 Albumin Elph (U) [Mass fraction] <6.0 Invalid Interpretation Code [facility] Comment on above: Result Comment: The reference range and other method performance specifications have not been established for this test; results should be integrated into the clinical context for interpretation. Performed By: #### 1 [id number], [id number] #### [facility] [address] [place] [address] Creatinine (U) [Mass/Vol] 58.8 mg/dL Invalid Interpretation Code [facility] Comment on above: Result Comment: The reference range and other method performance specifications have not been established for this test; results should be integrated into the clinical context for interpretation. Performed By: #### 1 [id number], [id number] #### [facility] [address] [place] [address] U Prot/Creat Ratio [facility] Invalid Interpretation Code .00-200.00 [facility] Comment on above: Performed By: #### 1 [id number], [id number] #### [facility] [address] [place] [id number] URINALYSISOrdered By: Aakash Garcia on 01-03-2023 Bilirubin Ql (U) Negative (01/03/23 7:01 AM) Normal Negative [facility] UA Auto SS Clarity (U) Clear (01/03/23 7:01 AM) Normal Clear [facility] UA Auto SS Color (U) [place] *ABN* (01/03/23 7:01 AM) Invalid Interpretation Code [...] AM) Normal Negative [facility] UA Auto SS [place].plasma/[place]. RBC (Bld) [Mass ratio] 0-3 /HPF Normal [...] [facility] UA Auto SS Urobilinogen Qn (U) 1.2884679 {Dasia'U}/dL Normal 0.0 - 1.0 EU/dL [facility] UA Auto SS WBC Auto Ql (U) Negative (01/03/23 7:01 AM) Normal Negative [facility] UA Auto SS WBC LM.HPF (Urine sed) [#/Area] 0-5 /HPF Normal 0-5/HPF [facility] UA Auto SS Yeast LM Ql (Urine sed) Trace (01/03/23 7:01 AM) Normal [facility] UA Auto SS Urinalysison 01-03-2023 Bilirubin Ql (U) Negative Normal Negative [facility] Comment on above: Performed By: #### 1 [id number], [id number] #### [facility] [address] [place] [address] Clarity (U) CLEAR Normal Clear [facility] Comment on above: Performed By: #### 1 [id number], [id number] #### [facility] [address] [place] [address] Color (U) ORANGE Abnormal Yellow [facility] Comment on above: Performed By: #### 1 [id number], [id number] #### [facility] [address] [place] [address] Epithelial cells.squamous LM.HPF (Urine sed) [#/Area] 0-2 Normal 0-2 [facility] Comment on above: Performed By: #### 1 [id number], [id number] #### [facility] [address] [place] [address] Glucose Test strip (U) [Mass/Vol] TRACE Abnormal Negative [facility] Comment on above: Performed By: #### 1 [id number], [id number] #### [facility] [address] [place] [address] Hemoglobin Ql (U) Negative Normal Negative [facility] Comment on above: Performed By: #### 1 [id number], [id number] #### [facility] [address] [place] [address] Ketones (U) [Mass/Vol] Negative Normal Negative [facility] Comment on above: Performed By: #### 1 [id number], [id number] #### [facility] [address] [place] [address] [place].plasma/[place]. RBC (Bld) [Mass ratio] 0-3 Normal 0-3 [facility] Comment on above: Performed By: #### 1 [id number], [id number] #### [facility] [address] [place] [address] Nitrite Ql (U) See Comment Normal Negative [facility] Comment on above: Result Comment: Test Not Performed Due To Interfering Substance Performed By: #### 1 [id number], [id number] #### [facility] [address] [place] [address] pH (U) 5.0 [pH] Invalid Interpretation Code 5.0-9.0 [facility] Comment on above: Performed By: #### 1 [id number], [id number] #### [facility] [address] [place] [address] Protein (U) [Mass/Vol] Negative Normal Negative [facility] Comment on above: Performed By: #### 1 [id number], [id number] #### [facility] [address] [place] [address] Specific gravity (U) [Rel density] 1.010 Invalid Interpretation Code 1.005-1.030 [facility] Comment on above: Performed By: #### 1 [id number], [id number] #### [facility] [address] [place] [address] Type of Urine collection method Clean Catch Normal [facility] Comment on above: Performed By: #### 1 [id number], [id number] #### [facility] [address] [place] [address] Urobilinogen Qn (U) 1.0 {Dasia'U}/dL Normal 0.0-1.0 [facility] Comment on above: Performed By: #### 1 [id number], [id number] #### [facility] [address] [place] [address] WBC Auto Ql (U) Negative Normal Negative [facility] Comment on above: Performed By: #### 1 [id number], [id number] #### [facility] [address] [place] [address] WBC LM.HPF (Urine sed) [#/Area] 0-5 Normal 0-5 [facility] Comment on above: Performed By: #### 1 [id number], [id number] #### [facility] [address] [place] [address] Yeast LM Ql (Urine sed) TRACE Normal F [facility] Comment on above: Performed By: #### 1 [id number], [id number] #### [facility] [address] [place] [address] eGFRon 01-03-2023 GFR/1.73 sq M.predicted among non-blacks MDRD (S/P/Bld) [Vol rate/Area] 33 mL/min/1.73 m2 Low >=59 [facility] Comment on above: Order Comment: Order added by Discern Expert. Result Comment: Packaging Engineer malcolm kidney disease could be indicated at eGFR's of less than 60 mL/min/1.73m2. Kidney failure is indicated at less than 15 mL/min/1.73m2. Performed By: #### 1 [id number], [id number] #### [facility] [address] [place] [address] Consent for Treatmenton 12-16 Consent for Treatment [id number]#1 .00CD:127 Normal [facility] Discharge Instructionson Discharge Instructions [id number]#1. 00CD:127 Normal [facility] ED Clinical Summaryon 2022 ED Clinical Summary [address] [address] ED Clinical Summary Person Information Name: CHACHO EDWARDS [place] Age: 77 Years : 1945 Sex: Female Language: Somali PCP: Lani Méndez DO Marital Status: Visit [...] 12/31/2022 23:40:20 12/31/2022 23:40:20 [address] [facility] [id number] PHYS DOC NOTES: MEDICAL INFORMATION: Prescriptions Given: New Medications [facility], [address] [facility] [place], [place] [id number], [phone] ciprofloxacin (Cipro 500 mg Tab) 1 Tablets [...] up: With: Address: When: Lani Méndez [address] [place] [address] Business (1) In 3 days DIAGNOSIS: Acute UTI Normal [facility] ED Note-Physicianon 01-02-20 23 ED Note-Physician [...] day(s), # 14 tab(s), Refills(s) 0, Pharmacy: [facility] 1985, 162, cm, 12/31/22 22:40:00 EDT, Height/Length Dosing, 131, kg, 12/31/22 22:40:00 EDT, Weight Dosing ciprofloxacin, 500 mg = 1 tab(s), Tab, Oral, Once, Stop date 12/31/22 23:18:00 EDT, STAT, Start date 12/31/22 23:18:00 EDT, 12/31/22 23:18:00 EDT phenazopyridine, 100 mg = 1 tab(s), Oral, TID, X 2 day(s), # 6 tab(s), Refills(s) 0, Pharmacy: [facility] 1985, 162, cm, 12/31/22 22:40:00 EDT, [...] Information Lani Kunzricky In 3 days [address] [place] [address] Business (1) Additional Instructions: Patient Education Urinary [...] fluoroscopic guidan (more content not included)... Normal [facility] Comment on above: Result Comment: Elec [...] this condition includes: ? Antibiotic medicine. ? Hbeg-wsw-ynltvgc medicines to treat discomfort. ? Drinking enough [...] these instructions at home: Medicines ? Take tdnz-tij-ubgvhpr and prescription medicines only as told by [...] Document Revie (more content not included)... Normal [facility] ED Patient Summaryon 023 ED Patient Summary [address] [address] Patient Discharge Instructions Person Information Name: CHACHO EDWARDS Age: 77 Years Arrival Date: 12/31/2022 22:31:54 Discharge Diagnosis: Acute UTI Primary Care Physician: Lani Méndez DO Provider Information Primary Provider: Pantera Wise DO Advanced Bisque Finisher:Harjinder The exam and treatment you received in the Emergency Department were for an urgent problem and are not intended as complete care. It is important that you follow up with a doctor, nurse practitioner, or physician?s assistant infant toddler teacher for ongoing care. If your symptoms become [...] Address: When: Lani Méndez [address] [place] [address] Business (1) In 3 days In the event that this physician does not participate in your insurance network, please consult with your insurance company to find a nearby participating provider. Patient Education Materials: Urinary Tract Infection, Adult A MESSAGE TO ALL PATIENTS REGARDING OPIOIDS PRESCRIPTION OPIOIDS: WHAT YOU NEED TO KNOW Prescription opioids can be used to help relieve seuzxksv-iu-tdlxmk pain and are often prescribed following a [...] be struggling with addiction, tell your health senior care specialist and ask for guidance or call [facility] National Helpline at 6-145-763-QTFY. u Source: [place] Department of Health and Human (more content not included)... Normal [facility] UA With Cult Reflexon 2022 Bacteria LM Ql (Urine sed) TRACE Normal Trace [facility] Comment on above: Performed By: #### 1 [id number], [id number] ####[facility] [address] [place] [address] Bilirubin Ql (U) 1+ Abnormal Negative [facility] Comment on above: Performed By: #### 1 [id number], [id number] ####[address] [address] Clarity (U) CLOUDY Abnormal Clear [facility] Comment on above: Performed By: #### 1 [id number], [id number] ####[address] [address] Color (U) ORANGE Abnormal Yellow [facility] Comment on above: Performed By: #### 1 [id number], [id number] ####[address] [address] Epithelial cells.squamous LM.HPF (Urine sed) [#/Area] 3-4 Normal 0-2 [facility] Comment on above: Performed By: #### 1 0153559, [id number] ####[address] [address] Glucose Test strip (U) [Mass/Vol] Negative Normal Negative [facility] Comment on above: Performed By: #### 1 [id number], [id number] ####[facility] [address] [place] [address] Hemoglobin Ql (U) 3+ Abnormal Negative [facility] Comment on above: Performed By: #### 1 [id number], [id number] ####[facility] [address] [place] [address] Ketones (U) [Mass/Vol] Negative Normal Negative [facility] Comment on above: Performed By: #### 1 [id number], [id number] ####[address] [address] [place] [address].plasma/[place]. RBC (Bld) [Mass ratio] >30 Abnormal 0-3 [facility] Comment on above: Performed By: #### 1 [id number], 9545654 ####[address] [address] Nitrite Ql (U) Positive Abnormal Negative [facility] Comment on above: Performed By: #### 1 1153135, 5194998 ####[place] [address] pH (U) 6.5 [pH] Invalid Interpretation Code 5.0-9.0 [facility] Comment on above: Performed By: #### 1 [id number], 9930979 ####[place] [address] Protein (U) [Mass/Vol] 3+ Abnormal Negative [facility] Comment on above: Performed By: #### 1 0745090, 3166839 ####[place] [id number] Specific gravity (U) [Rel density] 1.020 Invalid Interpretation Code 1.005-1.030 [facility] Comment on above: Performed By: #### 1 3455004, 0008974 ####[place] [address] Type of Urine collection method Clean Catch Normal [facility] Comment on above: Performed By: #### 1 0428090, 6482488 ####[place] [id number] Urobilinogen Qn (U) 0.2 {Dasia'U}/dL Normal 0.0-1.0 [facility] Comment on above: Performed By: #### 1 7482079, 2503236 ####[place] [address] WBC Auto Ql (U) 2+ Abnormal Negative [facility] Comment on above: Performed By: #### 1 3567834, 3766463 ####[place] [address] WBC LM.HPF (Urine sed) [#/Area] 16-25 Abnormal 0-5 [facility] Comment on above: Performed By: #### 1 [id number], [id number] ####[facility] [address] [place] [address] URINALYSISOrdered By: Ken Chow on 12-31-2022 Bacteria LM Ql (Urine sed) Trace /HPF Normal Trace/HPF [facility] UA Auto SS Bilirubin Ql (U) 1+ *ABN* (12/31/22 10:55 PM) Invalid Interpretation Code Negative [facility] UA Auto SS Clarity (U) Cloudy *ABN* (12/31/22 10:55 PM) Invalid Interpretation Code Clear [facility] UA Auto SS Color (U) [place] *ABN* (12/31/22 10:55 PM) Invalid Interpretation Code [...] PM) Normal Negative [facility] UA Auto SS [place].plasma/[place]. RBC (Bld) [Mass ratio] >30 /HPF Invalid [...] [facility] UA Auto SS Urobilinogen Qn (U) 0.9040955 {Dasia'U}/dL Normal 0.0 - 1.0 EU/dL [facility] UA Auto SS WBC Auto Ql (U) 2+ *ABN* (12/31/22 10:55 PM) Invalid Interpretation Code Negative [facility] UA Auto SS WBC LM.HPF (Urine sed) [#/Area] 16-25 /HPF Invalid Interpretation Code 0-5/HPF [facility] UA Auto SS CHEMISTRYOrdered By: Lab ROP User on 12-13-2022 Glucose [Mass/Vol] 113 mg/dL High 55 - 99 mg/dL [facility] POC Subsection POC Device SN [id number] Invalid Interpretation Code [facility] POC Subsection POC User ID [id number] Invalid Interpretation Code [facility] POC Subsection POC Username TIFFANY FELICIANO Invalid Interpretation Code [facility] POC Subsection Capillary Glucose POCon 11-17 Glucose [Mass/Vol] 113 mg/dL High 55-99 [facility] Comment on above: Performed By: #### 2 [id number] #### [facility] [address] [place] [address] Consent for Treatmenton 11-17 Consent for Treatment [id number]# 1.00CD:127 Normal [facility] Main OR Preoperative Recordo n 12-13-2022 Main OR Preoperative Record Holding Area Document Type FTPM Summary Primary Physician: Dustin Gonzales MD Finalized Date/Time: 12/13/22 07:53:47 Pt. Name: CHACHO EDWARDS/Sex: 1945 Female Med Rec #: [id number] Physician: Dustin Gonzales MD Financial #: [id number] Pt. Type: P Room/Bed: / Admit/Disch: 12/13/22 [...] 07:16 Tiffany Feliciano RN 12/13/22 07:53 Normal [facility] Progress Note-Physicianon Progress Note-Physician Patient: CHACHO [...] BID, # 60 tab(s), Refills(s) 0, Pharmacy: [facility], 163, cm, 06/23/22 7:22:00 EST, Height/Length Dosing, 130.4, kg, 06/23/22 7:22:00 EST, Weight Dosing aspirin 81 mg Oral EC Tab: 81 mg = 1 tab(s), Oral, Daily, # 30 tab(s), Refills(s) 0, Pharmacy: [facility] 1986, 163, cm, 06/23/22 7:22:00 EST, Height/Length Dosing, 130.4, kg, 06/23/22 7:22:00 EST, Weight Dosing atorvastatin 80 mg Tab: 80 mg = 1 tab(s), Oral, Daily, # 30 tab(s), Refills(s) 0, Pharmacy: [facility] 1985, 163, cm, 06/23/22 7:22:00 EST, Height/Length Dosing, 130.4, kg, 06/23/22 7:22:00 EST, Weight Dosing gabapentin 600 mg Tab: 1,200 mg = 2 tab(s), Oral, BID, X 90 day(s), # 360 tab(s), Refills(s) 0, Pharmacy: [facility] 1985, 162, cm, 12/06/22 11:37:00 EDT, Height/Length [...] All Problems Acid reflux / SNOMED CT 397840762 / Confirmed Arthritis / SNOMED CT 1049473 / Confirmed Blind left eye / SNOMED CT 163375942 / Confirmed Chronic kidney disease due to diabetes mellitus / SNOMED CT 4444732087 / Confirmed Chronic kidney disease, stage 3b / SNOMED CT 6438032595 / Confirmed Diabetes mellitus with polyneuropathy / SNOMED CT 8889798117 / Confirmed DJD (degenerative joint disease) of knee / SNOMED CT 326353964 / Confirmed Generalized osteoarthritis / SNOMED CT 398286036 / Confirmed Hemianopia, homonymous, left / SNOMED CT 17151527 / Confirmed Hemiplegia of left nondominant side as late effect of cerebral infarction / SNOMED CT 1536523892 / Confirmed History of CVA (cerebrovascular accident) without residual deficits / SNOMED CT 4567665868 / Confirmed History of deep vein thrombosis / SNOMED CT 1207391175 / Confirmed left leg History of obesity / SNOMED CT 3154423249 / Confirmed Lumbosacral radiculopathy / SNOMED CT 6409364 / Confirmed Seizure disorder, focal motor / SNOMED CT 675451515 / Confirmed Resolved: At risk for falls / SNOMED CT 701301896 Problem added when Risk for Falls Careplan was initiated. Resolved due to patient discharge. Resolved: At risk for falls / SNOMED CT 208 (more content not included)... Normal [facility] Comment on above: Result Comment: Elec tronically Signed By: Onur Martínez DO.br\Date and Time Signed: 12/13/22 07:37 EDT Consent for Treatmenton 11-17 Consent for Treatment [id number] 060 [id number]# 1.00CD:127 [facility] Patient Correspondenceon Patient Correspondence [id number] 3060 [id number]# 1.00CD:127 [facility] Outside Records Officeon Outside Records Office [id number] 3050 [id number]# 1.00CD:127 [facility] Consent for Treatmenton 10-16 Consent for Treatment [id number] 305 [id number] #1.00CD:127 [facility] Consultation Noteon 10-27-19 Consultation Note Chief [...] her home exercises in the interim. Normal [facility] Comment on above: Result Comment: Elec tronically Signed By: Christian VELASQUEZ, Dustin\.terry\Date and Time Signed: 10/26/22 21:06 EDT Office/Clinic Note-Physician on 10-26-2022 Office/Clinic Note-Physician [id number]# 1.00CD:127 Normal [facility] Patient Correspondenceon Patient Correspondence [id number]# 1.00CD:127 Normal [facility] Patient Correspondence [id number]# 1.00CD:127 Normal [facility] Patient History Officeon Patient History Office [id number]# 1.00CD:127 Normal [facility] Coding Summary.on 09-23-2022 Coding Summary. CD:[id number] W w+PGhlYWQ+AV6MQQUvR35 szLNifY2mR9TIYQzLMpfi XNOLLNnSCtCjkgRlTQ8aw XNjZXJu IC8+IP3jVNRvXgjilYRji 7I0sPV8G72ofz5tPYcmkR N6UIGrXkXcfjysd7vwlFg 6IDcuNmluOyBt GLYdjV42VEJ6dF18Tz46b XBbwKIaa7uglTs2XnJsJL HpSOB1sXvsKZsja9BpVQV mN87klKCwl4F1 UHXljTzyuOUoVhMyxIF3y F1wSVaoelgug3fueannXu c6mn29lPNek9W0mDY2H0E zsxR3ADMnpVIa QypjcPDAlH6axglnm6dmn ayfAnYaHAMzRJx1KDe0FX DlaWyuDmBvDK20MTR8WAE bcxLfI8YbHUOe sBjlCiX5i9P7Kq8UY5TZD fcgZ0UVRIGOZFygzUP+PC 56xe79F1EwRijmRtb0TNZ hVTW5sSG3hF8n JCWgLJmdb2L4yAD0C8Xaa zWdfn8bn3whWRKfUUcqW6 6jfPXex9E4PXIrzCV8KZA uhFsjWoQfdV34 Oyc+BUObjFirt9PsJempg 9tvl9clmCw9PrwtBCCxvj IeqMxaUEV9m2YyMu2dUDO nqKH1zKV3cT0p DkJdHcZ9IZnvZ052CcFsu WApYiisG08pR6SbwHD+PH FcLgp0WNBpiUctQO2aE9S hZGRpbmctbGVm gIcbSM0lABQjdaicQGTft I6zMNXtD7k9UxHmAiB7RL ejK7ClBBFqigvbSi48fY0 jCwPjBjD7XNtk Q3BnziN5UXQkjFWrUZljI NW2M57nt3X0NPFpFPAsMN P3tHU0xI1acDwbgcfktOW mdDsgdmVydGlj TDfrYGpuP415LHRpkBguY kNvZGluZyBEYXRlOiAgMD QvMDgvMjAyMzwvdGQ+PHR vWCF1jQbxIXNq aFNsOQctXm8eeTukuHacN Q4pOMZkusflHYPftQ0yZT LioNUvxImuID8oARYqltm sv959GnTgIVJ9 DCMjfNDzL7HmiH0oNbDaH CYeQXWdU3AbhIPkEGmiC5 06DFoaCaA6NLAcehRcH6I sLWFsaWduOiB0 y3X6Ua7Nx4GxjttuR0Jvr JQqNxCsShylFHw6F5BsOs wvdHI+JO52MAJsCL79PRw 9NLJ9oXtiRCoj SGBsL2UjuG4hYnCjYHVlV GRkOyc+PHRhYmxlIHdpZH RoPScxMDAlJyBzdHlsZT0 xOi8qPNIiRPZz aLxxaXGcSrKtq9ysBWWiF AebBV2dqFlhZ6AgxDM3RA Plc0q1Ct31T46oK5DisXR +FUAlqBV0aNV1 eC8dLoThLiJ7GUbyN655J dHtmAXgLladg5jnb5zogJ r9FuM4BCBeakRqzMsfHXA 2o4LmZy12R83s IHdpZHRoPSIxNSUiIHZhb Edzcs8klX1oQs6+PGNvbC S6hBJ7nQ0eHuItAcI3GAy pL382RiHcoRCr Ysqct8zav2zikDs3MeMpN LCgakCttSnhVSS4o7QaAq 88P7LpiDkwf3AlQui3pc2 5pFFyv7U1jYV9 S6YoWYOhafibeINthUvfO U8rYWZjarlnORPouS3qNF LsD6v4BiUjRfV0XQqzH5S wkkW5UHYtuAXn DDYvqBFVnW9dxweim8ngh jcpTkZvWFNaZMb5JPu6CG UiiPpeDuIwJHX1LnL6UEQ 2gMHinG1ncWxc ivsgpO0pVoi+DUA2dGVkv STXLJ1lRxosxMK+PHRkIH O9nGvsBHcbWCSvrA2gDEV lL7x5XfLrWxT6 DLjrD2WgmnF6PAFrvQZdG UIbjXNVsX2wubett0slmh mrOlGkSLAcNOt7YIk4IJY saWduOiBsZWZ0 MbK0TBL0hMCaqC6nuAule igoxD8sAfj+QmlydGggRG V7DCi1K1SjZmv5ZJBsqCm oVJ2kdKWmYXsl Ef3tnOcjrQdrDC3hRCXne hsjy891TaNjr3saNFDodE FwPLehBOJ3Y97rn4G2SGS mGZKhANO0tFE9 gJ8zsOymhfabeFQreOjnv iTcePyvEQfwUElbI773KL HodIesIoWiILb4L4GjDpi 1PFZpbUqzGK1j qPKzLQewPe6wsYkhxAcpJ O7gRGMsbqudy847WdSvi8 vjDPTogRTrBLnyATS7U32 kg9Y8GLXvQIZf JIN3jQN4aA6smZopmcmoq GVmdDsgdmVydGljYWwtYW sbG451TMUosHxfJaEoyIh 0O5ClHwl1JMGx dFxtKX3ijPXbADkeUv0gr PnilKzmEC9qLXQihznhg9 73OuFlu7wpDMGhwLFbZKw gDIG8U61hn2O8 SQUxXNPtIDW8zAC3aI4ji GlnbjogbGVmdDsgdmVydG qiVGlgQLnqX188AYDazZy nPlBhdGllbnQg LYvtZVw0V0AtLgudjDW+P J40VXSnQW11oKLwaATra1 rnxWj3EhZqHYZoJBY7yBr iXVrph7GgAHCn R52fnWKjh3U4OBAzyKsjr EHoFhJhuAP5yE7kHEgozg qwq6cvrstcQeryo7fqzp7 4kL51S08yMCrf ZHRoPSIzMCUiIHZhbGlnb i1khB3eGc4+IVVybYP1mB H1iV6nTEVcMsM9WOplB96 9InRvcCIvPjxj i0phj4zpjJm9QuC6CBXys qSqiYirTGG3z3NxXw38T3 9sIHdpZHRoPSIyMCUiIHZ kbWokxt7mnE4u Ii8+GDAtgOE6eSX2uZ1aR hNdCvZ6KAgpR675DwIiqX JcDdyxL97hC4DigRR+PHR aWhy5PWSrfOhq GJ9tnVXdDGehUz5eTQM6N tDoSdIjTXddQ7YdWEGgxd rfmzzgnTI1CNBqSFKlzD2 9Gn4pfItcFJNf eNIBeW0rswadp6jhduuxL qWmLWTcLPo2IVh3TSFezD uuPiBzPPE2VoX1BVK6rGL peD2vtAndgrxm aP4lG2XqAUAvoaehTd77n D4qDbAeFyT7TXpnFdr+U0 uBU75bMSGBDctFDRb1O3C wKwy2XOWhzKdh NN5vyPVlPUvvIi3wuMtmw VbdDU9fDHFlyqrzSRTptP 1vHTRbxFJgeNuwVE9kWPX mpzznv986PuDz WND3MKJgbPBmQ6UxtY3oC nDrRYQpQRIsS2OcjRNpGR rhX692GQzrTcT8ISZvnrC cH9RcHTGeqOzq UeP2f7F9Xo0tRB5dCz4mH YO6KF76HL81rVJiz8F2kK P3N5IcJEKikmwtgykagHJ 4CZXxHVXotZ44 tPOaJQzjXa7tx2B0h986W MIzBLKrxJ04Rf1dkXlbDK KlbRZNtF4cqsjrv9pvjtr gIzAwMDAwMDt0 NJf6GAJxjWayWaGsSRD1R dY0MYH4rWKpaM0cnWiqcy weuO4tZxs+NzYgWWVhcnM 3B3GaUcc8UNLf dNfvWZ9rgBWwDGfbYv2sy RzfpCxoGV6hEJCimezyAB DqkM9jBDIogXLbqQzwNJ5 yWDAdnguwz799 UiAkVRA6LSLqpZMrD1Wbr F8fTcReEWYpDBGqL9BrcV ZsRDglO831OHkjZqO2ISL acmGxL3KzKADv qMyyGkY9n9P0Pg6DAG9ob BD6B2MxQqv1SESxkOxoRQ 4svEJmOSjyAw4ygVtyvIy uNU9lTWRekjjo NDOihG4kCFRycAEskPwlS N9bKSKiepkdf479CkInVK I6VAWbnOWpM2QbbP5tAqF oBMTvATLgL5Jz nIVxGGhcS831QRpaDfZ6R KVwweGtX9UyFSGaxLvkSw F7w2U3Ol8LgOSxNAZaVE6 2BL69MG74L8Hm PjwvdGFibGU+PHRhYmxlI HdpZHRoPScxMDAlJyBzdH xzNB4gHw2wSLYnHVPqpRi oyLYsOeXyj0sd WVUmACknWW3sxZbeQ5Pgk LX4IKCrq4t0Zv47U62mT4 JvdXA+TXYyhMN4cBP7rZ1 yUmTwXiF6NJzz A778WeBduFBnPtqqp7gmz 0hxjLy7VkMxBAVtlbLvyI alZLZ1q6XnEy49B99iQGk pZHRoPSIyMCUi YQTgvUzjsq9wfL1lQk3+P DPbqOM4jYV3dM0bHyMkDr P8TWwqR893OzCixDSmZsb aF42tC0FwuUF+ XIOsRgy4ARQgrUkcVZ8rg JRcFZxrWj7nKVH5FhRtVo JvXRwuB5FiDDAupsemxej jfTA5SBVoQUCd sU44Lg5fqAbmTo1yUVGlX RG1AZEabVZwO1UeoR8pCw DxHWIvIHWeI1FdeLEtJEm lN709AMigYiO8 FUBjzaEjA7HeVYAzxBddY iU7h7S3Xu3IeZxtdQZjRX 2kAdTcQRt0J6GoCou4ZYZ ovAraSZ6qmQIg QVcjYe5zzEpyjDgxHZ3qQ SCcgyzoo513WtRff9zdBX NwqWVtKPjcWMS1Y98an7Z 6CKUnXAMqADX3 yEA9kH2yfFppznpxdAHcb DsgdmVydGljYWwtYWxpZ2 73EHLsbBfoStQTXic7W1T qUtk3DDZreUng TX6amDIrTJinYd9vvUqob DnoNE8yIDPulvrol932Qt Diy1dpIZDqfEGwQKdiIAO 0J15kr9M9WXVu SAEjGAS4nTZ1lJ3nuRrds jogbGVmdDsgdmVydGljYW yzTWqtX503ONIjxLipBw8 ZMgx1W1XcJpg8 FTJgcNjrEW9xqRWyGEcgC x1kdUtwvEczEE8oICUdho swg629MoOgt9otRPAapEA pQVtsQGK1J60w e9T3RECfIMYxMGI0vUC0q P0byVbmcsschFWtbNymri QgdIyxJUriOBaxE615ZJU vcDsnPlBheWVy OjwvdGQ+ZM14zu88H3WmR adiDwy4HYKsIJH6lHB1zS 3gOWVsSJzeb5H0kGK4P7I bchFbmo9lm1hi YXBzZTog (more content not included)... Normal [facility] Referrals Officeon Referrals Office [id number]#1 .00CD:127 Normal [facility] XR Spine Lumbosacral Minimum 4 Viewson [...] mGy = na DAP = na Normal [facility] XR Spine Thoracic 3 Viewson 09-14-2022 [...] in mGy = na DAP = na [facility] Consent for Treatmenton 08-17 Consent for Treatment [id number]#1 .00CD:127 [facility] Physician Orderon 09-13-2022 Physician Order [id number]# 1.00CD:127 [facility] XR Pelvis 1 or 2 Viewson [...] = na DAP = na Normal [facility] Coding Summary.on 09-08-2022 Coding Summary. CD:[id number] W w+PGhlYWQ+QU8XQJXtV65 kdEXikS5pK8NKOIbUFvmo IHIGJNvIYlBenbHpSI2xm XNjZXJu IC8+WI7vHGBzElrfgYBbu 7V1kVG0E01kou4wQMzitT M2TEKcBtBteoqer9xikGx 6IDcuNmluOyBt BLGuvU44NJX0qM61Wy79b RGoyMIiw8rfgMx7HiAhLG FqXSN4uYviAJenr0TfONZ yP48gcTTmf8T5 YQRuiEiytKBcUiRtwXJ8y Q3cUUffpjhvi6ghsyzbRk x1oq99cDMvr9P1zLA5E8N xegT8XQLdyJBx MhpxyUYLgI0effmjb8aan ppcTeZsMJHeYXk7SLd3OM IdsGzuIdGvDY35ZFZ9FQL hobVyG7MrHSDe vPhhYrZ6a7Z2Cv2WK6YGS nzxN6JSRCJXKXafdHG+PC 47yk74I5OrAgrbKyi5LQX zUFR4bXM5hD1e VBFlMZsxe6A7gCJ1E2Wac mEtzd1lk4svAXWwJZacU2 4zcMUmm2O2UCEfaQE8HEF usGzyNeAhkT34 Oyc+RRXtqOfwk1PcMjifx 0lph3ogxPt0DdasHXDkvn IllFckKFZ7k5YbGa9oVVX zyNZ3hFP3vX2b AeWsHpP7DVkfQ321KyJjs BEbEstwC68tJ8JvoRZ+PH PqKhn7FUTvgNisDQ5bZ9Z hZGRpbmctbGVm qJevLV1uFILxizfeNJIbb Q5pRYRjX1j9QhFoFsZ9LX dtE1QqLCFsjhmvBj23lF6 kHiBnOsI5HJyx T5EljdK2ZWBntNEvVSnpF GK8L93om4I3KWYzZADvWY P4oOC6vZ8dlFrdtqugrVG mdDsgdmVydGlj VNmsSVoxV712MPUioAjpI kNvZGluZyBEYXRlOiAgMD MvMjQvMjAyMzwvdGQ+PHR gAUP1sYcyOKFl sEGuQEooTb1dkKayfLvoJ J5mWDTdrcxmMHJqsZ7xIR FatITkvMhiVZ1yWFFcmst du696EtUnMWD3 JVMuwKZhH9WdlN5mJiPnE MZtAJRuN1CroXRdGIepV5 25DWnvLlW7QSNdahIaT8J sLWFsaWduOiB0 j4N4Fb4Hc6YoxbfoK7Xwi KIoElXlMmcwFBk0Z3YyDv wvdHI+UY01BKExBU35PLf 2YYZ3qAgbOTtj BLGnR1NkpW5nEbStYFLdZ GRkOyc+PHRhYmxlIHdpZH RoPScxMDAlJyBzdHlsZT0 jGc3hCSDjVQAz oAmxzELbKaFng5laDLWaO GjdBF6okMypS0BpmTF5WZ Jmu2e5Gy65N90yL5BdeHB +QYNvmAY9xUM4 qB9wZgCeDhU0HUcsW863L pCjmKZkTafzp7tki7xugJ r4OeA8HDIpdvFaoDvaUZK 6v1DdPj66O45k IHdpZHRoPSIxNSUiIHZhb Tzjhn5dmN6iDo7+PGNvbC S9aQO0vD1mFcItZiF5NTh hQ658AbQhhWLp Jkhfk9nzm3awyQm4CuTdY BJtutAkeKxqGKU6w7JtPg 99P1YrfNwxg7PeGkd7gi1 4gJLah6P5vCL7 R3BlJHZcsrgacRZrgJmtL K5hJMCksulcBTLutB4xDF XqI2x7CuZkDsU7BZxmC9I ogfI9SURfyGHt DETbkASLyC5itmlkw2wed racBoSdVHNsYTp0YPt4GY MqvVqcKuEoIQY4KbD8CXG 9xSDpuV4jeJkh ruvslO1vSwz+USR6aHGle CUGQQ7yIdpdqUC+PHRkIH E8jQwdBChqFKYxsU0uJOA dF0v8ObTqUkH6 FMjbC4PhjrX5OLEnsWTuM DAnnEBNiW7vhqxoa6nuos umPqStBTHcJUk4EDq0PQB saWduOiBsZWZ0 JfF7LUD3gGLucH5vhIhnc bqgwM6hCxg+QmlydGggRG H4FPw3J4EwKlo7QMJmoUu uLD3ubOKyPQwl Yj0rzGytxBigTG8lXKZzl wncd736IhNry5vmUDEbdA PlGFiyBMV7D47uk3T3PVE vJCMuKRG9aBK6 dG2drQxbtbzidAYrwSgad dZpmQawCMxfTKdfX019OE BjvJiaGfNcKEi5F9LmJev 7GISvuSpxPG7r yAEwUSxnCn5phVprqJrmW R3fBKXkfbijt548FvWpv6 qrBEOkrMKrYEatXIB1Y03 ob1P7HHZpRNXo ZXZ4xCT9yM6lbAospepwj GVmdDsgdmVydGljYWwtYW acS296NCUgpGlyRzCtnWq 9Y6CfKzt5CFNp vRmnSA6etNCxBUfjVi4uw FslbErbWW1dBDEzfyozk3 79PxHkj3lkXXEhbKPsHGs sCQA4Z36iw3X0 VODpQXQtBXC4mMW8rH5cc GlnbjogbGVmdDsgdmVydG oaNTvrWJcqK594QHZbnNr nPlBhdGllbnQg HTpiPOc6M9QaHgxekHK+P G94VZWtGV18eQVajLCuf7 tutXk1CzTaUXJvYJQ1hNa rHWoms7LbDCRa F45jpJXbk7H6NURcrSuvb VAoTcKgzVO4jM9mFWyfmi wmh2huqbqiDhtno4scwa5 3aB19C52iQLpp ZHRoPSIzMCUiIHZhbGlnb i8ciX9bBf7+WCQlrIC0uR L1hM9eDGGcEkP0IHdwI34 9InRvcCIvPjxj o2knp9zhfSq2DdQ4IHBuo wOruZoxKHX3y8RlKv11W6 9sIHdpZHRoPSIyMCUiIHZ pjAginb0duY3h Ii8+COHxdCR6xNC4iT9vS iBiRzL5KSqvH771DtZkiB XeBhwqR87rF7JgaLV+PHR bBmo7EDHckXrq JT9rcOWgQTmzYp4cBAU0H bFlJnSrEPlpN8CzPSVria uvpveeqKV9BYMfPWFzyL2 6Fa3lkIhbMARz cWUUiR3ozsptw3zjfkjpH oWnYPOiTCm5MHk9EAHdxK zcKjAlJEF1YxM9RKE5qNO pfU1xhHathqpq dW8zD7LcEEIquevaIb77w N7jJoHnFaX2XNurEwu+U0 dMS75mZALEOfrJKOu7T6H cHzr1PUGrtPfd UB8lvCWcYIcmPt3aoQfah SgiFI7mZMWsljleUOIxeM 7fCYUipNVgaHklTT7tMUE pwfjel732ZnJr NCI7GGXfcOTjF9AtzW7rQ zTbWGBmLLGkL7XqlETeIH ndZ864NQfiGsK7IGThwcP sB9MfEJNwmUcp FwC3h6M5Zp8kHN4wCu0jX AY1VD00LU60dJKqy6S9yV V7J9JiAFTvgbqauoybzVY 1DDKvNVZjwO67 lTNiVSvlOd6mv1T5x041S EFyRJVmsS88Cz0ucTmdEV NfwLYUzU0tludog9srbiq gIzAwMDAwMDt0 EUy3HKJhnMjtGhKpUIZ7O oV3NNT3qFSgyV1myWdgzk yvsN2gDdp+NzYgWWVhcnM 7B0EnJhm9CMSl vNhmSN3nbORrXSvrVh1yw AkepHbdMC7vLAGspxzkGR RovG1oYPQlxKUgfYzcYK3 hRABclwqei884 PwEkTYA8VOUiuCGbB6Eoy P9pBsDjHAWdIDBsH8WlgD EoYUurB646LYxkVdU8TXQ rgjMaH0EwYDZd kVxfRtX8h1X2Wf2TRN3zd CL5Q1IbTsd6GDTjhLlvDG 6rqQCzEWddFy4fvDjnwRt yBH2kSMPxbxzx KXGlqO3pHZFpsXDofBvwF W9pVVBpalhuv069TaLbQA W2OSLnrCVgJ4XctT2sWiD vMLSyNDXeR5Co zETkCRkfC861HZhnOcZ1P LXkelCsD4JpRNTdpVucBm C7o7Z0Bx2PXWIrDWXycJG nHvP7O7IfIxhp dHI+JZ11UHZiXW89sOIjp BLip5xfeFs3ToFvOWJcOF V7bSpzJGfcx0UgUDVwT37 gsGOnu5U4ETBl fGaryHHfNqNuaIZ6nD7zG Kfadlrmh1gavwuuHmbin0 bptp46iN23D79lNObfEOT oPSIzMCUiIHZh wDlqki8bhN7rSm0+PGNvb EY6uTH3cJ5xYcMpMxX8TQ xpI141FeShwMBpObvql9w tk9lelAe4HeFi FTCbtiFwjYqlXNU9v2CtF m79S85iFLtySWSaOPMdDA RzPNJwfUuyct1ugB7nBg9 +GU4hl9duwa69 oZ80aKF+AGDxREY0vBwzN XpfSVOwmH2nCLgvEvR9JJ ZgHwOhbJ85pUCyWCltDa5 mlWetgBslML6k HGSiqqwlr253JcQxs0sdH HBncHSrNDamNCT8J07bm2 W1BGPzZCXuCNC7fQY0vH7 hbGlnbjogbGVm dDsgdmVydGljYWwtYWxpZ 116YTMbqHghIoVnmRGjO0 fllhZICF9kZptubSQ+PHR dGLA0qEkwGJqr ZBIehF4uVFQlM6p9KfWxI pH3JEiuH2AlgrD6STUjiU ZqMKNqmDCAnR9ithnqg4r vcjogIzAwMDAw FBw1JLt7YNCvmSirNpZoC YN5OdJ6DQT3mZLpiI3igA ncicdoeD9lOdu+RklOOjw vdGQ+PHRkIHN0 hZpdRDvbXFIcqD8uOVZaW 5y3SrYsAyQ5FJphM4Uumw T0STJqsBOsXUXsfXPVbN5 errmqt5fexaze LnLhBBDrTZf9RKa6QNUlx IniQzJzDUY2GwU6LRR0dE FfcX6miXvmmvqumL8gJmr +TVJOOjwvdGQ+ KGXoHBY9eOezXPgeXTTya P3rPWBeA7h9QpKqMaT9YI xcW9HxliA5QSKguYEiKSD gpBGKeO3wodae l2qhxcoyBpHjLCWzCCn3R Ay6UINeuJklFiCkHKV8Jc G4RSF0jIFrhG5izPdvdpi sdF2hOgf+UGF5 NNC4FT67LH88A9KhHhznt GFibGU+PHRhYmxlIHdpZH RoPScxMDAlJyBzdHlsZT0 cZq6nGRSxJIJj bGxhcHNl (more content not included)... [facility] C Urineon 09-06-2022 Bacteria identified Cx [...] Locations R1: This test was performed at: [facility], [address] [place] [address], [phone] , [facility] Comment on above: Performed By: #### 2 [id number] ####[place] [id number] Coding Summary.on 09-04-2022 Coding Summary. CD:[id number] G h0bWw+PGhlYWQ+EB7AYOI oO91jiZOjqS8oX0AIPDuM SywgQVBQTElOSyIgbmFtZ Q1bnSRjKUNr IC8+VL7vPSDxYmidvHPng 9L2pTJ1B16xww3cOAnaoZ J3YGLgNsKajruok7lhtJb 6IDcuNmluOyBt VQYsrQ83RSY1mC81Zl85j HDrlSCpr7kjlIc3CqXwZN NsKDX8hCufLSsxs7YlLKH bQ22ipVNxb9S1 YIDcwJnaiDDwFaPbaXB0q U0pPNquopyoc4nfytaoVz a9ih93hPNly3D3aKH8N0I tskR5XQIfoYHl GkapaLWMuW2ufwsgt8aeh mhaYfRpDILiFTi7JSs7LJ UndNdyRfUdDV09DRV7XAQ rukVzH1IsXMYc aZdsKyZ9o1F1Pl5UV9NHP hnbO5EVCXZHTYqveQU+PC 33fh91W4RfQulePno0TYT vFHH5gCH6wF5q HQBsNInqg2X3zMJ0Q2Hph aRntm8sm1bvRDNlOAqcU0 6vaIYpi4X4PBVriFP0ATP ixDypFeCqfM41 Oyc+AOJveSumv4PiGuqba 9xrj4lusLv9AbmwVLKixa TnfYmtVLJ9x2UuZy1eCKQ edCK3hNU8bU8t LsXoGgB6NAowJ309IiInn XBvUjodF53rF1AubQQ+PH EdHph3XGDxlYpuJE5uA7A hZGRpbmctbGVm gAitKP9hMVPxdfeeVLWwm P1qFUKkD4s2HdOtUkC6RC crK2NjLVRurrqjCe23fN8 lIfRvZdY7TWoq X6AqhfF7OMKarONqJPtzD JE9C88eh8K9WVPjWVRpOD W6yZH7bJ6uuNaljibmrPZ mdDsgdmVydGlj TZhuFFsfC135GQLwuYuzL kNvZGluZyBEYXRlOiAgMD MvMjAvMjAyMzwvdGQ+PHR dIRH4uJitTZTu kOBmOBhfPf1loLozoSxlB W4kWCJtbxwaXERgrZ1nJQ TsgWDvfAsdUZ5aRCSvahj bv005HxMpALE0 CTKlfKAdJ5FanX0tKaRbF UVlKDJkB2ImfPDeATmbS9 81NJfcQyB4OUAiwiPoF5K sLWFsaWduOiB0 z4O4Ag8Gx6NpxeqhL6Son EHeOnMtCdzxJWh3K7NuXr wvdHI+FE56XJIoKR42YMz 6KEA9hLmaHOts VVLoE7DxxV4sWnCpUIHgE GRkOyc+PHRhYmxlIHdpZH RoPScxMDAlJyBzdHlsZT0 rEo9jFUIkZRUs hTyswEVxEjApk6yaCQSeV CmjPD7yzEexM7FowEK9FO Rxc7r1Fk64Y22kG0OwhQP +UXGrxVY6lUM1 lA6uWkQpNgS3TYjcS513P kYapQRqOppqv3gcm9tfvU j8McW9NTAzcdAzaNodYXI 3q0CbXp62Y27g IHdpZHRoPSIxNSUiIHZhb Xjros1vnF8nCr4+PGNvbC Q5jQJ3wD1jNgJiYcF4FRp zU798HxOkoIKy Pgwal2xrv6fntWm0UpMsG CTtaxFkqKemPJR4l8MhZw 41G6EkuKwzc6VlTuq2ja6 9iODoa9L8rPI2 W5KrDYPahowyyNBgpVomB B8yNFStktrcRAFzgV5bLK LbC6e1CuGvNvY9BTvrD8S ekeD8PLMyxEUe ALIbrQWVaV6rpvpef0ghk zvhFhEzTMDxLUz4YZa0JW JuhGbrYbUwUSW9EsR5TMK 4hIEkzG6ayPgr dafzcU0rLdj+JRF4wRMnw OPIPK0dQmxssKR+PHRkIH B5aUizRDmnFZWacN3lAOO tN2d7FnNtDpU2 LMkeM6ZqarQ8UKBieZHcG UFphUCNiH6pbiyzj0iphd lsUjYqPEYlESe2SYn4TSD saWduOiBsZWZ0 XzD3MLH9eGVkpE1lkYifj epveT7tUkj+QmlydGggRG F6QAe0J7OiBie1DSUtvAe nAL2irWHmKTjn Tv9alYhfgCmiVC8kXJYep pbds862EpGuz2coOHXigU AaHScdKSX0B84ac1Y1ULK jLJPkEAN3qDO9 gS8nuJueaditqDYqwPxcg dOjkMmeOOvfUTovY992SG VwvHsxHtIzZEi9I4TyWoe 7BOWpcHxdAJ8r hMXfRXkqRw5djXmsqWvbU E9tUOKpnsaoq738YzLhn1 paSIKxyYJyUHmjWNR0M63 mw6Y4FWXiGYLc JFC5zAR5qO6mkAhdppurd GVmdDsgdmVydGljYWwtYW ozB065RVVnjYgaIfDbnJo 7D2GbIuc1IKPd eFkkFE0yxNVzICgyLu4xo OujkVxsKT9lPEWalwqng5 66BnBil0tdOCTecEYzTAr bHYP8C10iu5P2 YMTfOUSmBDH3zWS8qI0cv GlnbjogbGVmdDsgdmVydG seVQezZGujY470RTFrpEe nPlBhdGllbnQg RDsaPVn2S6GqQkhslHX+P U89EXZbYX62qCVovJKdg1 eimOt2ZpBsXZTmFNA8fHd xVZzid1IqSSHj C71wmQEmy5W3THCluJcmc OTfFyTcyRF1aL2nFYvgsj qrd3vacgtbXatox3xsit3 2pQ68X41oOZln ZHRoPSIzMCUiIHZhbGlnb l3mmR5nTu6+NHTueKT7xM M3mT3nXDGwQfK6MFclJ06 9InRvcCIvPjxj g2ebs9awnLv1JtF5UBPyv pJspXfsCVA7v2TiMu78U4 9sIHdpZHRoPSIyMCUiIHZ tiBygto0lrK8i Ii8+TJTtfVT4aMX8zH1oB pFrSfU9WYkfP523ZoDrmE BdXeazD25yI8KbgNZ+PHR eLre2VYYwyGik ZV6zwKTlNYwfLv6iRVO1Y zVeRrVcBIkrI1VpIHRkzv zzqbsypYM1AIMmDPUxvP0 2Oz2bwTacHGQr cBKOcI8vmbsxp3zigdatK eUbQZFnEVp3DYy7SDBvrJ aeYsNlKEF4McM9BIX1bNK xeZ2mzNsktaru fF5kS1AlCFJgjuloDm94c U6cKlInCeV5EDejBzk+U0 jHH97wCTVJExeWDYm4P4O fQxs1IEIerKhg UJ5mkSQvBQwkMe3slWkar JalYC2gEQWpywyaXKSyeQ 9zYXSnjHDcgUhjMK8mSNO pqixcm889FkRd WED4GKJgmOGfE3SmvR6bF mZpSKOnBIMnK2GapIIvJM joV828OYqhCqS4ENJygeF lJ0UlDBBqmByb ZwL1p5I4Ay8eMF1uZn0lL EF4EK95EI02dTRgw6R5sU I4Z3UgJTYmkjadzubzoML 3WISiESAowW35 hELlSAqvVm9yc1E6j428U NGuTVBdyX91Ex8peXalKQ LxtHMEyX1pjsjik4voirt gIzAwMDAwMDt0 SPt0WYVjpCidCxVsNAW3K sC9EPY2aSXrsY8wfXwxyr cbdZ0cLpz+NzYgWWVhcnM 4D0IfYei7NMAb gItlWX1gxDDhQTqxTw3fx FfrsUowLE2vSYBgpiykKT EhbR8dTYWpqRFqaIqaAV4 yYLWdyaylo307 HvAjZYX9NBHovHYiB0Vap U9nGeSmLBXtLDNuG6UoqP BzTLxrY419KCeiQtB5CYF hajEpH1QoMVMs iKazRpY4b0J3Eh0KBO1hf RQ9M7ZiDvm6TNBuhMcmPZ 6nqWDkNKxaFc7yyJaruNh iDA3vFFXghqgh QYSvdG7sFSHeeHDgfEmzD X1kCOFgdgqgz119UcHdYC W2UQVjgPQuA8BpmT0sZcR hJVGeZRCgA1Tn hQXdXKgnC864FReyPhT4D BScxjVxR8RlKJAuzOzqVu Q5o9Y1Su9QAXqyND3xcnQ lPP7dtuU2H9Tv PjwvdHI+LY73XNNpRB44u NMzoRIdr0hbaFe4DkXqAE UeJIP7rAdoELknl7SoLMF qA49ubDYlx0H3 VMNavQdkqURoDdDxnLK8m K8lNPjqbkjeg6ffvkrpFp ojm7zkrx50jU20O99eVXo pZHRoPSIzMCUi IFCalKfviv9ijC2rQn8+P NObaIL4oDL0qH1wZtVbZb R2DBneM044QlQejBTeWdt jx6bmk7wdlEk7 UxRkEBKhooBsdEplJYZ0s 0QvTy19N24aFXbhQNQaVJ ItDUGgLACmyUixtf1faU8 wIi8+VK1cf6ei ea26yG71uDJ+VLWdBFM6b FnyDIdbBEXsjE6aDNwcOd F0LNYoHyArdE42qQOcOEu gDt3nlGglvOuu WN9gAXNjnsnyl317AoTja 3nlJFSdfJBlBVwpZRF7H8 8rx1G8POIuWYZpMLV8mUL 7bI5tcCgmztpi bGVmdDsgdmVydGljYWwtY ScsN896WCOcxLlzKnDkcY BcL3sshkCWHN8jZjzawSR +AQJkGVB6uGrj TQtcYZToaL4wQMVmW5o1J sOqGjA1YWlsP3QfllS9FW JumJVpGMOnwYLReS7fpiq lp9vtkzfhNgUm WAJwYFm4IMx5MYJsySecB vXtDJG3AdK9ADA2nVYpuM 6juUjaydvseK4uPuk+Rkl OOjwvdGQ+PHRk NNS2qNlwUMgmBUSzeJ5tE BBnG7d5KxLtIrI7BUywA0 BnnpP4UYZdfCEePUNdzUV HyI7grtero6ik nyxiYrBeOIDsRXd4OWy0M AHkxFgpCoKyNZW0OjS2TJ Y9pYSfuK0amCmlvkpilZ4 wOyc+TVJOOjwv dGQ+XGXePSV2jXbgOSytN URjeH1iHIOtV8u6EsGwIg P1YRrtV8HjvpV4XGAvoDM mDLYxdJBVdQ2q cubpl6gxbjmlAyPeRXEjL Gz5QPq3OQFbnXssZkZbHX A2KuU1UAG1tVGpfN4ebFd teodpuS5fJbj+ YYG1TDM0IE53QU53N8LeV jwvdGFibGU+PHRhYmxlIH dpZHRoPScxMDAlJyBzdHl lED4mBt8hQIYu LWNv (more content not included)... Normal [facility] Family Medicine Office/Clini c Noteon 09-02-2022 [...] day(s), # 14 tab(s), Refills(s) 0, Pharmacy: [facility], 162, cm, 09/02/22 12:13:00 EDT, [...] Urnls Dip Stick Non-Auto w/o Micrscpy POC 79347 Follow-up With When Contact Information Lani Méndez [...] mg, Ora (more content not included)... Normal [facility] Comment on above: Result Comment: Elec [...] height. This can be done either in [place]i ([place] or metric measurements. Note that charts are available to help you find your BMI quickly and easily without having to do these calculations yourself. To calculate your BMI in Somali ([place] measurements, your health care provider will: [...] problems. ? BMI can be measured using Somali measurements or metric measurements. ? To interpret [...] 02/13/2005 Document Revised: 05/17/2018 Document Reviewed: 04/17/2018 [employer] Patient Education ? 2019 [employer]izer. Obstetrics and Gynecology Urinary Tract Infection, Adult [...] your ri (more content not included)... Normal [facility] Consent for Treatmenton 08-16 Consent for Treatment [id number]#1 .00CD:127 [facility] Legal Correspondence Officeo n 08-31-2022 Legal Correspondence Office [id number]# 1.00CD:127 [facility] Office/Clinic Note-Physician on 08-31-2022 Office/Clinic Note-Physician [id number]#1 .00CD:127 [facility] Patient Correspondenceon Patient Correspondence [id number]#1 .00CD:127 [facility] Patient Correspondence [id number]#1 .00CD:127 [facility] Patient Correspondence [id number]#1 .00CD:127 [facility] Patient History Officeon Patient History Office [id number]#1 .00CD:127 [facility] Physician Orderon 08-31-2022 Physician Order [id number]#1 .00CD:127 [facility] Glucose Glucometer (BldC) [M ass/Vol]Ordered By: Delio Gonzales on 07-13-2022 Glucose [Mass/Vol] 97 mg/dL [facility] Comment on above: Random Glucose Refer ence Range is dependent on time and content of last meal. Glucose of more than 200 mg/dL in a nonstressed, ambulatory subject supports the diagnosis of Diabetes Mellitus. Glucose Poct Glucometerson 0 07-13-2022 Commemt1 Glu2: Cleaned Meter Normal [facility] Comment on above: Result Comment: PERF ORMED BY: [facility] [address] [place] [address] PATHOLOGIST PAPERHANGER PIPE SHANNAN GARZA M.D. Performed By: #### B MP #### [facility] [address] [place] [address] Glucose [Mass/Vol] 97 mg/dL Normal [facility] Comment on above: Result Comment: [place] om Glucose Reference Range is dependent on time and content of last meal. Glucose of more than 200 mg/dL in a nonstressed, ambulatory subject supports the diagnosis of Diabetes Mellitus. Performed By: #### B MP #### [facility] [address] [place] [address] No Panel InformationOrdered By: Delio Gonzales on 07-13-2022 Bedside Glucose Comment Glu2: cleaned meter [facility] Glucose Poct Glucometerson 0 07-12-2022 Commemt1 Glu2: Cleaned Meter [facility] Comment on above: Result Comment: PERF ORMED BY: [place] [address] PATHOLOGIST PAPERHANGER PIPE SHANNAN GARZA M.D. Performed By: #### G LULS #### Point of Care testing , Glucose [Mass/Vol] 113 mg/dL Normal [facility] Comment on above: Result Comment: [place] om Glucose Reference Range is dependent on time and content of last meal. Glucose of more than 200 mg/dL in a nonstressed, ambulatory subject supports the diagnosis of Diabetes Mellitus. Performed By: #### G LULS #### Point of Care testing , Commemt1 Glu2: Cleaned Meter [facility] Comment on above: Result Comment: PERF ORMED BY: [place] [address] PATHOLOGIST PAPERHANGER PIPE SHANNAN GARZA M.D. Performed By: #### G LULS #### Point of Care testing , Glucose [Mass/Vol] 97 mg/dL Normal [facility] Comment on above: Result Comment: [place] om Glucose Reference Range is dependent on time and content of last meal. Glucose of more than 200 mg/dL in a nonstressed, ambulatory subject supports the diagnosis of Diabetes Mellitus. Performed By: #### G LULS #### Point of Care testing , Basic Metabolic Panelon -2 Anion gap [Moles/Vol] 14.1 mmol/L Normal 6.0-15.0 [facility] Comment on above: Performed By: #### G LULS #### Point of Care testing , Calcium [Mass/Vol] 9.0 mg/dL Normal 8.2-10.2 [facility] Comment on above: Performed By: #### G LULS #### Point of Care testing , Chloride [Moles/Vol] 109 mmol/L Normal 95-114 [facility] Comment on above: Performed By: #### G LULS #### Point of Care testing , CO2 [Moles/Vol] 23.7 mmol/L Normal 22.0-30.0 [facility] Comment on above: Performed By: #### G LULS #### Point of Care testing , Creatinine [Mass/Vol] 1.49 mg/dL High 0.44-1.03 [facility] Comment on above: Performed By: #### G LULS #### Point of Care testing , Creatinine Clr Calc Pharmacy 41.81 [facility] Comment on above: Result Comment: PERF ORMED BY: [facility] [address] [place] [address] PATHOLOGIST PAPERHANGER PIPE SHANNAN GARZA M.D. Performed By: #### G LULS #### Point of Care testing , Estimated GFR ( Ana 41 [facility] Comment on above: Result Comment: GFR estimated reference range: According to KDOQI guidelines, <60 ml/min/1.73m2 is sufficient to diagnose a patient with chronic kidney disease. Performed By: #### G LULS #### Point of Care testing , Estimated GFR (Non- Am 34 [facility] Comment on above: Performed By: #### G LULS #### Point of Care testing , Glucose [Mass/Vol] 84 mg/dL Normal 70-100 [facility] Comment on above: Result Comment: [place] Glucose Reference Range is dependent on time and content of last meal. Glucose of more than 200 mg/dL in a nonstressed, ambulatory subject supports the diagnosis of Diabetes Mellitus. ADA recommended reference range Performed By: #### G LULS #### Point of Care testing , Potassium [Moles/Vol] 4.8 mmol/L Normal 3.5-5.1 [facility] Comment on above: Performed By: #### G LULS #### Point of Care testing , Sodium [Moles/Vol] 142 mmol/L Normal 136-146 [facility] Comment on above: Performed By: #### G LULS #### Point of Care testing , Urea nitrogen [Mass/Vol] 26 mg/dL High 9-23 [facility] Comment on above: Performed By: #### G LULS #### Point of Care testing , Basophils Auto (Bld) [#/Vol] Ordered By: Mariposa Martinez on 07-11-2022 Basophils (Bld) [#/Vol] 0.0 10*3/uL 0.0-0.2 [facility] Basophils/100 WBC Auto (Bld) Ordered By: Mariposa Martinez on 07-11-2022 Basophils/100 WBC (Bld) 0.6 % . [facility] Complete Blood Count Auto Di ffon 07-11-2022 Basophils (Bld) [#/Vol] 0.0 10*3/uL Normal 0.0-0.2 [facility] Comment on above: Result Comment: PERF ORMED BY: [facility] [address] [place] [address] PATHOLOGIST PAPERHANGER PIPE SHANNAN GARZA M.D. Performed By: #### G LULS #### Point of Care testing , Basophils/100 WBC (Bld) 0.6 % Normal . [facility] Comment on above: Performed By: #### G LULS #### Point of Care testing , Eosinophils (Bld) [#/Vol] 0.2 10*3/uL Normal 0.0-0.45 [facility] Comment on above: Performed By: #### G LULS #### Point of Care testing , Eosinophils/100 WBC (Bld) 3.7 % Normal . [facility] Comment on above: Performed By: #### G FERNLS #### Point of Care testing , Erythrocyte distribution width (RBC) [Ratio] 13.6 % Normal 11.9-15.3 [facility] Comment on above: Performed By: #### G FERNLS #### Point of Care testing , Hematocrit (Bld) [Volume fraction] 38.5 % Normal 34.0-46.4 [facility] Comment on above: Performed By: #### G FERNLS #### Point of Care testing , Hemoglobin (Bld) [Mass/Vol] 12.5 g/dL Normal 11.8-15.4 [facility] Comment on above: Performed By: #### G FERNLS #### Point of Care testing , Lymphocytes (Bld) [#/Vol] 1.5 10*3/uL Normal 1.00-4.8 [facility] Comment on above: Performed By: #### G FERNLS #### Point of Care testing , Lymphocytes/100 WBC (Bld) 31.6 % Normal . [facility] Comment on above: Performed By: #### G FERNLS #### Point of Care testing , MCH (RBC) [Entitic mass] 30.6 pg Normal 24.7-34.3 [facility] Comment on above: Performed By: #### G FERNLS #### Point of Care testing , MCV (RBC) [Entitic vol] 94.3 fL Normal 80-100 F [facility] Comment on above: Performed By: #### G FERNLS #### Point of Care testing , Mean Corpuscular HGB Conc 32.5 g/dL Normal 32.0-35.0 [facility] Comment on above: Performed By: #### G FERNLS #### Point of Care testing , Monocytes (Bld) [#/Vol] 0.5 10*3/uL Normal 0.0-0.8 [facility] Comment on above: Performed By: #### G FERNLS #### Point of Care testing , Monocytes/100 WBC (Bld) 10.0 % Normal . [facility] Comment on above: Performed By: #### G LULS #### Point of Care testing , Neutrophils (Bld) [#/Vol] 2.6 10*3/uL Normal 1.8-7.7 [facility] Comment on above: Performed By: #### G FERNLS #### Point of Care testing , Neutrophils/100 WBC (Bld) 54.1 % Normal . [facility] Comment on above: Performed By: #### G FERNLS #### Point of Care testing , NRBC% 0.2 /100{WBC} Normal 0-0.5 [facility] Comment on above: Performed By: #### G FERNLS #### Point of Care testing , Platelet mean volume (Bld) [Entitic vol] 9.2 fL Normal 6.3-10.7 [facility] Comment on above: Performed By: #### G FERNLS #### Point of Care testing , Platelets (Bld) [#/Vol] 191 10*3/uL Normal 150-450 [facility] Comment on above: Performed By: #### G FERNLS #### Point of Care testing , RBC (Bld) [#/Vol] 4.08 10*6/uL Normal 3.60-5.00 [facility] Comment on above: Performed By: #### G FERNLS #### Point of Care testing , WBC (Bld) [#/Vol] 4.8 10*3/uL Normal 3.8-11.6 [facility] Comment on above: Performed By: #### Lona SHIRLEYLS #### Point of Care testing , Creatinine and Glomerular fi ltration rate.predicted panel (S/P/Bld)Ordered By: Mariposa Martinez on 07-11-2022 Creatinine [Mass/Vol] 1.49 mg/dL 0.44-1.03 [facility] Eosinophils Auto (Bld) [#/Vo l]Ordered By: Mariposa Martinez on 07-11-2022 Eosinophils (Bld) [#/Vol] 0.2 10*3/uL 0.0-0.45 [facility] Eosinophils/100 WBC Auto (Bl d)Ordered By: Mariposa Martinez on 07-11-2022 Eosinophils/100 WBC (Bld) 3.7 % . [facility] Erythrocyte distribution wid th Auto (RBC) [Ratio]Ordered By: Mariposa Martinez on 07-11-2022 Erythrocyte distribution width (RBC) [Ratio] 13.6 % 11.9-15.3 [facility] Estimated glomerular filtrat ion rate (GFR) non- AmericanOrdered By: Mariposa Martinez on 07-11-2022 GFR/1.73 sq M.predicted among non-blacks MDRD (S/P/Bld) [Vol rate/Area] 34 mL/Min [facility] Glucose Poct Glucometerson 0 07-11-2022 Commemt1 [facility] Comment on above: Result Comment: Glu2 : WILL NOTIFY DR/RN Performed By: #### G LULS #### Point of Care testing , Commemt2 Cleaned Meter Normal [facility] Comment on above: Result Comment: PERF ORMED BY: [facility] [address] [place] [address] PATHOLOGIST PAPERHANGER PIPE SHANNAN GARZA M.D. Performed By: #### G LULS #### Point of Care testing , Glucose [Mass/Vol] 87 mg/dL Normal [facility] Comment on above: Result Comment: [place] om Glucose Reference Range is dependent on time and content of last meal. Glucose of more than 200 mg/dL in a nonstressed, ambulatory subject supports the diagnosis of Diabetes Mellitus. Performed By: #### G LULS #### Point of Care testing , Glucose [Mass/Vol] 83 mg/dL Normal [facility] Comment on above: Result Comment: [place] om Glucose Reference Range is dependent on time and content of last meal. Glucose of more than 200 mg/dL in a nonstressed, ambulatory subject supports the diagnosis of Diabetes Mellitus. PERFORMED BY: [facility] [address] [place] [address] PATHOLOGIST PAPERHANGER PIPE SHANNAN GARZA M.D. Performed By: #### G LULS #### Point of Care testing , Hematocrit Auto (Bld) [Volum e fraction]Ordered By: Mariposa Martinez on 07-11-2022 Hematocrit (Bld) [Volume fraction] 38.5 % 34.0-46.4 [facility] Hemoglobin [Mass/volume] in BloodOrdered By: Mariposa Martinez on 07-11-2022 Hemoglobin (Bld) [Mass/Vol] 12.5 g/dL 11.8-15.4 [facility] Leukocytes [#/volume] correc [place] for nucleated erythrocytes in Blood by Automated counOrdered By: Mariposa Martinez on 07-11-2022 WBC corrected for nucl RBC Auto (Bld) [#/Vol] 4.8 10*3/uL 3.8-11.6 [facility] Lymphocytes Auto (Bld) [#/Vo l]Ordered By: Mariposa Martinez on 07-11-2022 Lymphocytes (Bld) [#/Vol] 1.5 10*3/uL 1.00-4.8 [facility] Lymphocytes/100 WBC Auto (Bl d)Ordered By: Mariposa Martinez on 07-11-2022 Lymphocytes/100 WBC (Bld) 31.6 % . [facility] MCH Auto (RBC) [Entitic mass ]Ordered By: Mariposa Martinez on 07-11-2022 MCH (RBC) [Entitic mass] 30.6 pg 24.7-34.3 [facility] MCHC Auto (RBC) [Mass/Vol]Or dered By: Mariposa Martinez on 07-11-2022 MCHC (RBC) [Mass/Vol] 32.5 g/dL 32.0-35.0 [facility] MCV Auto (RBC) [Entitic vol] Ordered By: Mariposa Martinez on 07-11-2022 MCV (RBC) [Entitic vol] 94.3 fL 80-100 F [facility] Monocytes Auto (Bld) [#/Vol] Ordered By: Mariposa Martinez on 07-11-2022 Monocytes (Bld) [#/Vol] 0.5 10*3/uL 0.0-0.8 [facility] Monocytes/100 WBC Auto (Bld) Ordered By: Mariposa Martinez on 07-11-2022 Monocytes/100 WBC (Bld) 10.0 % . F [facility] Neutrophils Auto (Bld) [#/Vo l]Ordered By: Mariposa Martinez on 07-11-2022 Neutrophils (Bld) [#/Vol] 2.6 10*3/uL 1.8-7.7 [facility] Neutrophils/100 WBC Auto (Bl d)Ordered By: Mariposa Martinez on 07-11-2022 Neutrophils/100 WBC (Bld) 54.1 % . [facility] No Panel InformationOrdered By: Delio Gonzales on 07-11-2022 Bedside Glucose #2 Comment Cleaned meter [facility] No Panel InformationOrdered By: Mariposa Martinez on 07-11-2022 Estimated GFR () 41 mL/Min [facility] Comment on above: GFR estimated refere nce range: According to KDOQI guidelines, <60 ml/min/1.73m2 is sufficient to diagnose a patient with chronic kidney disease. Pharmacy Creatinine Clearance (Chem 41.81 [facility] Nucleated erythrocytes [Pres ence] in Blood by Automated countOrdered By: Mariposa Martinez on 07-11-2022 Nucleated RBC Auto Ql (Bld) 0.2 /100{WBC} 0-0.5 [facility] Platelet mean volume Auto (B ld) [Entitic vol]Ordered By: Mariposa Martinez on 07-11-2022 Platelet mean volume (Bld) [Entitic vol] 9.2 fL 6.3-10.7 [facility] Platelets Auto (Bld) [#/Vol] Ordered By: Mariposa Martinez on 07-11-2022 Platelets (Bld) [#/Vol] 191 10*3/uL 150-450 [facility] RBC Auto (Bld) [#/Vol]Ordere d By: Mariposa Martinez on 07-11-2022 RBC (Bld) [#/Vol] 4.08 10*6/uL 3.60-5.00 [facility] Serum or plasma anion gap de terminationOrdered By: Mariposa Martinez on 07-11-2022 Anion gap [Moles/Vol] 14.1 mmol/L 6.0-15.0 [facility] Serum or plasma calcium destiny urement (mass/volume)Ordered By: Mariposa Martinez on 07-11-2022 Calcium [Mass/Vol] 9.0 mg/dL 8.2-10.2 [facility] Serum or plasma chloride consuelo surement (moles/volume)Ordered By: Mariposa Martinez on 07-11-2022 Chloride [Moles/Vol] 109 mmol/L 95-114 [facility] Serum or plasma glucose destiny urement (mass/volume)Ordered By: Mariposa Martinez on 07-11-2022 Glucose [Mass/Vol] 84 mg/dL 70-100 [facility] Comment on above: ADA recommended refe rence rangeRandom Glucose Reference Range is dependent on time and content of last meal. Glucose of more than 200 mg/dL in a nonstressed, ambulatory subject supports the diagnosis of Diabetes Mellitus. Serum or plasma potassium me asurement (moles/volume)Ordered By: Mariposa Martinez on 07-11-2022 Potassium [Moles/Vol] 4.8 mmol/L 3.5-5.1 [facility] Serum or plasma sodium measu rement (moles/volume)Ordered By: Mariposa Martinez on 07-11-2022 Sodium [Moles/Vol] 142 mmol/L 136-146 [facility] Serum or plasma total carbon dioxide measurement (moles/volume)Ordered By: Mariposa Martinez on 07-11-2022 CO2 [Moles/Vol] 23.7 mmol/L 22.0-30.0 [facility] Serum or plasma urea nitroge n measurement (mass/volume)Ordered By: Mariposa Martinez on 07-11-2022 Urea nitrogen [Mass/Vol] 26 mg/dL - [facility] WBC Auto (Bld) [#/Vol]Ordere d By: Mariposa Martinez on 07-11-2022 WBC (Bld) [#/Vol] 4.8 10*3/uL 3.8-11.6 [facility] Glucose Poct Glucometerson 0 07-10-2022 Glucose [Mass/Vol] 86 mg/dL Normal [facility] Comment on above: Result Comment: [place] om Glucose Reference Range is dependent on time and content of last meal. Glucose of more than 200 mg/dL in a nonstressed, ambulatory subject supports the diagnosis of Diabetes Mellitus. PERFORMED BY: [address] [place] [id number] PATHOLOGIST PAPERHANGER PIPE SHANNAN GARZA M.D. Performed By: #### G LULS #### Point of Care testing , Commemt1 Glu2: Cleaned Meter [facility] Comment on above: Result Comment: PERF ORMED BY: [address] [address] PATHOLOGIST PAPERHANGER PIPE SHANNAN GAZRA M.D. Performed By: #### G LULS #### Point of Care testing , Glucose [Mass/Vol] 98 mg/dL Normal [facility] Comment on above: Result Comment: [place] om Glucose Reference Range is dependent on time and content of last meal. Glucose of more than 200 mg/dL in a nonstressed, ambulatory subject supports the diagnosis of Diabetes Mellitus. Performed By: #### G LULS #### Point of Care testing , Glucose Poct Glucometerson 0 07-09-2022 Glucose [Mass/Vol] 104 mg/dL Normal [facility] Comment on above: Result Comment: [place] om Glucose Reference Range is dependent on time and content of last meal. Glucose of more than 200 mg/dL in a nonstressed, ambulatory subject supports the diagnosis of Diabetes Mellitus. PERFORMED BY: [address] [place] [address] PATHOLOGIST PAPERHANGER PIPE SHANNAN GARZA M.D. Performed By: #### G LULS #### Point of Care testing , Commemt1 Glu2: Cleaned Meter [facility] Comment on above: Result Comment: PERF ORMED BY: [address] [place] [id number] PATHOLOGIST PAPERHANGER PIPE SHANNAN GARZA M.D. Performed By: #### G LULS #### Point of Care testing , Glucose [Mass/Vol] 82 mg/dL Normal [facility] Comment on above: Result Comment: [place] om Glucose Reference Range is dependent on time and content of last meal. Glucose of more than 200 mg/dL in a nonstressed, ambulatory subject supports the diagnosis of Diabetes Mellitus. Performed By: #### G LULS #### Point of Care testing , Glucose Poct Glucometerson 0 07-08-2022 Glucose [Mass/Vol] 100 mg/dL [facility] Comment on above: Result Comment: [place] om Glucose Reference Range is dependent on time and content of last meal. Glucose of more than 200 mg/dL in a nonstressed, ambulatory subject supports the diagnosis of Diabetes Mellitus. PERFORMED BY: [address] [place] [address] PATHOLOGIST PAPERHANGER PIPE SHANNAN GARZA M.D. Performed By: #### G LULS #### Point of Care testing , Commemt1 Glu2: Cleaned Meter [facility] Comment on above: Result Comment: PERF ORMED BY: [address] [place] [address] PATHOLOGIST PAPERHANGER PIPE SHANNAN GARZA M.D. Performed By: #### G LULS #### Point of Care testing , Glucose [Mass/Vol] 87 mg/dL [facility] Comment on above: Result Comment: [place] om Glucose Reference Range is dependent on time and content of last meal. Glucose of more than 200 mg/dL in a nonstressed, ambulatory subject supports the diagnosis of Diabetes Mellitus. Performed By: #### G LULS #### Point of Care testing , Glucose Poct Glucometerson 0 07-07-2022 Commemt1 Glu2: Cleaned Meter [facility] Comment on above: Performed By: #### G LULS #### Point of Care testing , Commemt2 WILL NOTIFY DR/RN [facility] Comment on above: Result Comment: PERF ORMED BY: [address] [place] [address] PATHOLOGIST PAPERHANGER PIPE SHANNAN GARZA M.D. Performed By: #### G LULS #### Point of Care testing , Glucose [Mass/Vol] 84 mg/dL Normal [facility] Comment on above: Result Comment: [place] om Glucose Reference Range is dependent on time and content of last meal. Glucose of more than 200 mg/dL in a nonstressed, ambulatory subject supports the diagnosis of Diabetes Mellitus. Performed By: #### G LULS #### Point of Care testing , Commemt1 Glu2: Cleaned Meter [facility] Comment on above: Performed By: #### G LULS #### Point of Care testing , Commemt2 WILL NOTIFY DR/RN [facility] Comment on above: Result Comment: PERF ORMED BY: [address] [address] PATHOLOGIST PAPERHANGER PIPE SHANNAN GARZA M.D. Performed By: #### G LULS #### Point of Care testing , Glucose [Mass/Vol] 69 mg/dL [facility] Comment on above: Result Comment: [facility] Glucose Reference Range is dependent on time and content of last meal. Glucose of more than 200 mg/dL in a nonstressed, ambulatory subject supports the diagnosis of Diabetes Mellitus. Performed By: #### G LULS #### Point of Care testing , Glucose [Mass/Vol] 80 mg/dL [facility] Comment on above: Result Comment: [place] om Glucose Reference Range is dependent on time and content of last meal. Glucose of more than 200 mg/dL in a nonstressed, ambulatory subject supports the diagnosis of Diabetes Mellitus. PERFORMED BY: [facility] [address] [place] [address] PATHOLOGIST PAPERHANGER PIPE SHANNAN GARZA M.D. Performed By: #### G LULS #### Point of Care testing , Glucose Poct Glucometerson 0 07-06-2022 Glucose [Mass/Vol] 106 mg/dL [facility] Comment on above: Result Comment: [place] Glucose Reference Range is dependent on time and content of last meal. Glucose of more than 200 mg/dL in a nonstressed, ambulatory subject supports the diagnosis of Diabetes Mellitus. Performed By: #### G LULS #### Point of Care testing , Commemt1 Glu2: Cleaned Meter [facility] Comment on above: Result Comment: PERF ORMED BY: [facility] [address] [place] [id number] PATHOLOGIST PAPERHANGER PIPE SHANNAN GARZA M.D. Performed By: #### G LULS #### Point of Care testing , Glucose [Mass/Vol] 90 mg/dL Normal [facility] Comment on above: Result Comment: [place] om Glucose Reference Range is dependent on time and content of last meal. Glucose of more than 200 mg/dL in a nonstressed, ambulatory subject supports the diagnosis of Diabetes Mellitus. Performed By: #### G LULS #### Point of Care testing , Glucose Poct Glucometerson 0 07-05-2022 Commemt1 Glu2: Cleaned Meter [facility] Comment on above: Performed By: #### G LULS #### Point of Care testing , Commemt2 WILL NOTIFY DR/RN [facility] Comment on above: Result Comment: PERF ORMED BY: [facility] [address] [place] [id number] PATHOLOGIST PAPERHANGER PIPE SHANNAN GARZA M.D. Performed By: #### G LULS #### Point of Care testing , Glucose [Mass/Vol] 136 mg/dL Normal [facility] Comment on above: Result Comment: [place] Glucose Reference Range is dependent on time and content of last meal. Glucose of more than 200 mg/dL in a nonstressed, ambulatory subject supports the diagnosis of Diabetes Mellitus. Performed By: #### G LULS #### Point of Care testing , Glucose [Mass/Vol] 103 mg/dL Normal [facility] Comment on above: Result Comment: [place] om Glucose Reference Range is dependent on time and content of last meal. Glucose of more than 200 mg/dL in a nonstressed, ambulatory subject supports the diagnosis of Diabetes Mellitus. PERFORMED BY: [address] [address] PATHOLOGIST PAPERHANGER PIPE SHANNAN GARZA M.D. Performed By: #### G LULS #### Point of Care testing , Basic Metabolic Panelon 06-18 Anion gap [Moles/Vol] 11.3 mmol/L Normal 6.0-15.0 [facility] Comment on above: Order Comment: pt is in therapy Performed By: #### G LULS #### Point of Care testing , Calcium [Mass/Vol] 9.0 mg/dL Normal 8.2-10.2 [facility] Comment on above: Order Comment: pt is in therapy Performed By: #### G LULS #### Point of Care testing , Chloride [Moles/Vol] 108 mmol/L Normal 95-114 [facility] Comment on above: Order Comment: pt is in therapy Performed By: #### G LULS #### Point of Care testing , CO2 [Moles/Vol] 23.2 mmol/L Normal 22.0-30.0 [facility] Comment on above: Order Comment: pt is in therapy Performed By: #### G LULS #### Point of Care testing , Creatinine [Mass/Vol] 1.60 mg/dL High 0.44-1.03 [facility] Comment on above: Order Comment: pt is in therapy Performed By: #### G LULS #### Point of Care testing , Creatinine Clr Calc Pharmacy 38.85 [facility] Comment on above: Order Comment: pt is in therapy Result Comment: PERF ORMED BY: [facility] [address] [place] [address] PATHOLOGIST PAPERHANGER PIPE SHANNAN GARZA M.D. Performed By: #### G LULS #### Point of Care testing , Estimated GFR ( Ana 38 [facility] Comment on above: Order Comment: pt is in therapy Result Comment: GFR estimated reference range: According to KDOQI guidelines, <60 ml/min/1.73m2 is sufficient to diagnose a patient with chronic kidney disease. Performed By: #### G LULS #### Point of Care testing , Estimated GFR (Non- Am 31 [facility] Comment on above: Order Comment: pt is in therapy Performed By: #### G LULS #### Point of Care testing , Glucose [Mass/Vol] 167 mg/dL High 70-100 [facility] Comment on above: Order Comment: pt is in therapy Result Comment: [place] Glucose Reference Range is dependent on time and content of last meal. Glucose of more than 200 mg/dL in a nonstressed, ambulatory subject supports the diagnosis of Diabetes Mellitus. ADA recommended reference range Performed By: #### G LULS #### Point of Care testing , Potassium [Moles/Vol] 4.5 mmol/L Normal 3.5-5.1 [facility] Comment on above: Order Comment: pt is in therapy Performed By: #### G LULS #### Point of Care testing , Sodium [Moles/Vol] 138 mmol/L Normal 136-146 [facility] Comment on above: Order Comment: pt is in therapy Performed By: #### G LULS #### Point of Care testing , Urea nitrogen [Mass/Vol] 46 mg/dL High 9-23 [facility] Comment on above: Order Comment: pt is in therapy Performed By: #### G LULS #### Point of Care testing , Glucose Poct Glucometerson 0 07-04-2022 Commemt1 Glu2: Cleaned Meter Normal [facility] Comment on above: Result Comment: PERF ORMED BY: [facility] [address] [place] [address] PATHOLOGIST PAPERHANGER PIPE SHANNAN GARZA M.D. Performed By: #### G LULS #### Point of Care testing , Glucose [Mass/Vol] 85 mg/dL Normal [facility] Comment on above: Result Comment: [place] Glucose Reference Range is dependent on time and content of last meal. Glucose of more than 200 mg/dL in a nonstressed, ambulatory subject supports the diagnosis of Diabetes Mellitus. Performed By: #### G LULS #### Point of Care testing , Glucose [Mass/Vol] 131 mg/dL Normal [facility] Comment on above: Result Comment: [place] Glucose Reference Range is dependent on time and content of last meal. Glucose of more than 200 mg/dL in a nonstressed, ambulatory subject supports the diagnosis of Diabetes Mellitus. PERFORMED BY: [facility] [address] [place] [address] PATHOLOGIST PAPERHANGER PIPE SHANNAN GARZA M.D. Performed By: #### G SERGO #### Point of Care testing , Basic Metabolic Panelon 06-18 Anion gap [Moles/Vol] 11.4 mmol/L Normal 6.0-15.0 [facility] Comment on above: Performed By: #### B MP #### [address] Calcium [Mass/Vol] 8.4 mg/dL Normal 8.2-10.2 [facility] Comment on above: Performed By: #### B MP #### [address] Chloride [Moles/Vol] 110 mmol/L Normal 95-114 [facility] Comment on above: Performed By: #### B MP #### [address] CO2 [Moles/Vol] 21.6 mmol/L Low 22.0-30.0 [facility] Comment on above: Performed By: #### B MP #### [address] Creatinine [Mass/Vol] 1.75 mg/dL High 0.44-1.03 [facility] Comment on above: Performed By: #### B MP #### [place] [address] [place] Creatinine Clr Calc Pharmacy 35.52 [facility] Comment on above: Result Comment: PERF ORMED BY: [place] [address] PATHOLOGIST PAPERHANGER PIPE SHANNAN GARZA M.D. Performed By: #### B MP #### [place] [address] [place] Estimated GFR ( Ana 34 [facility] Comment on above: Result Comment: GFR estimated reference range: According to KDOQI guidelines, <60 ml/min/1.73m2 is sufficient to diagnose a patient with chronic kidney disease. Performed By: #### B MP #### [facility] [address] Estimated GFR (Non- Am 28 Normal [facility] Comment on above: Performed By: #### B MP #### [facility] [address] Glucose [Mass/Vol] 99 mg/dL Normal 70-100 [facility] Comment on above: Result Comment: [place] Glucose Reference Range is dependent on time and content of last meal. Glucose of more than 200 mg/dL in a nonstressed, ambulatory subject supports the diagnosis of Diabetes Mellitus. ADA recommended reference range Performed By: #### B MP #### [address] Potassium [Moles/Vol] 4.0 mmol/L Normal 3.5-5.1 [facility] Comment on above: Performed By: #### B MP #### [address] Sodium [Moles/Vol] 139 mmol/L Normal 136-146 [facility] Comment on above: Performed By: #### B MP #### [address] Urea nitrogen [Mass/Vol] 49 mg/dL High 9-23 [facility] Comment on above: Performed By: #### B MP #### [address] Glucose Poct Glucometerson 0 07-03-2022 Commemt1 Glu2: Cleaned Meter Normal [facility] Comment on above: Result Comment: PERF ORMED BY: [place] [address] PATHOLOGIST PAPERHANGER PIPE SHANNAN GARZA M.D. Performed By: #### G SERGO #### Point of Care testing , Glucose [Mass/Vol] 84 mg/dL Normal [facility] Comment on above: Result Comment: [facility] Glucose Reference Range is dependent on time and content of last meal. Glucose of more than 200 mg/dL in a nonstressed, ambulatory subject supports the diagnosis of Diabetes Mellitus. Performed By: #### G LULS #### Point of Care testing , Glucose [Mass/Vol] 110 mg/dL Normal [facility] Comment on above: Result Comment: [facility] Glucose Reference Range is dependent on time and content of last meal. Glucose of more than 200 mg/dL in a nonstressed, ambulatory subject supports the diagnosis of Diabetes Mellitus. PERFORMED BY: [place] [id number] PATHOLOGIST PAPERHANGER PIPE SHANNAN GARZA M.D. Performed By: #### B MP #### [address] Glucose Poct Glucometerson 0 07-02-2022 Commemt1 [facility] Comment on above: Result Comment: Glu2 : WILL NOTIFY DR/RN Performed By: #### B MP #### [address] Commemt2 Cleaned Meter [facility] Comment on above: Result Comment: PERF ORMED BY: [place] [address] PATHOLOGIST PAPERHANGER PIPE SHANNAN GARZA M.D. Performed By: #### B MP #### [address] Glucose [Mass/Vol] 283 mg/dL Normal [facility] Comment on above: Result Comment: [facility] Glucose Reference Range is dependent on time and content of last meal. Glucose of more than 200 mg/dL in a nonstressed, ambulatory subject supports the diagnosis of Diabetes Mellitus. Performed By: #### B MP #### [address] Commemt1 Glu2: Cleaned Meter [facility] Comment on above: Result Comment: PERF ORMED BY: [place] [address] PATHOLOGIST PAPERHANGER PIPE SHANNAN GARZA M.D. Performed By: #### G LULS #### Point of Care testing , Glucose [Mass/Vol] 116 mg/dL Normal [facility] Comment on above: Result Comment: [place] Glucose Reference Range is dependent on time and content of last meal. Glucose of more than 200 mg/dL in a nonstressed, ambulatory subject supports the diagnosis of Diabetes Mellitus. Performed By: #### G LULS #### Point of Care testing , Glucose Poct Glucometerson 0 07-01-2022 Glucose [Mass/Vol] 160 mg/dL Normal [facility] Comment on above: Result Comment: [place] Glucose Reference Range is dependent on time and content of last meal. Glucose of more than 200 mg/dL in a nonstressed, ambulatory subject supports the diagnosis of Diabetes Mellitus. PERFORMED BY: [place] [address] PATHOLOGIST PAPERHANGER PIPE SHANNAN GARZA M.D. Performed By: #### B MP #### [address] Glucose [Mass/Vol] 118 mg/dL Normal [facility] Comment on above: Result Comment: [place] Glucose Reference Range is dependent on time and content of last meal. Glucose of more than 200 mg/dL in a nonstressed, ambulatory subject supports the diagnosis of Diabetes Mellitus. PERFORMED BY: [place] [address] PATHOLOGIST PAPERHANGER PIPE SHANNAN GARZA M.D. Performed By: #### G LULS #### Point of Care testing , Albumin [Mass/volume] in Ser um or PlasmaOrdered By: Mariposa Martinez on 06-30-2022 Albumin [Mass/Vol] 3.3 g/dL 3.2-5.5 [facility] Complete Blood Count Auto Di ffon 06-30-2022 Basophils (Bld) [#/Vol] 0.0 10*3/uL Normal 0.0-0.2 [facility] Comment on above: Result Comment: PERF ORMED BY: [place] [address] PATHOLOGIST PAPERHANGER PIPE SHANNAN GARZA M.D. Performed By: #### P AB, CMP, CBC #### [facility] [address] [place] [address] [place] Basophils/100 WBC (Bld) 0.5 % Normal . F [facility] Comment on above: Performed By: #### P AB, CMP, CBC #### [facility] [address] [place] [address] [place] Eosinophils (Bld) [#/Vol] 0.2 10*3/uL Normal 0.0-0.45 [facility] Comment on above: Performed By: #### P AB, CMP, CBC #### [facility] [address] [place] [address] [place] Eosinophils/100 WBC (Bld) 2.7 % Normal . [facility] Comment on above: Performed By: #### P AB, CMP, CBC #### [facility] [address] Erythrocyte distribution width (RBC) [Ratio] 13.5 % Normal 11.9-15.3 [facility] Comment on above: Performed By: #### P AB, CMP, CBC #### [facility] [address] [place] [address] [place] Hematocrit (Bld) [Volume fraction] 42.3 % Normal 34.0-46.4 [facility] Comment on above: Performed By: #### P AB, CMP, CBC #### [facility] [address] [place] [address] [place] Hemoglobin (Bld) [Mass/Vol] 13.7 g/dL Normal 11.8-15.4 [facility] Comment on above: Performed By: #### P AB, CMP, CBC #### [facility] [address] [place] [address] [place] Lymphocytes (Bld) [#/Vol] 1.4 10*3/uL Normal 1.00-4.8 [facility] Comment on above: Performed By: #### P AB, CMP, CBC #### [facility] [address] [place] [address] [place] Lymphocytes/100 WBC (Bld) 20.2 % Normal . [facility] Comment on above: Performed By: #### P AB, CMP, CBC #### [address] MCH (RBC) [Entitic mass] 29.9 pg Normal 24.7-34.3 [facility] Comment on above: Performed By: #### P AB, CMP, CBC #### [address] MCV (RBC) [Entitic vol] 92.7 fL Normal 80-100 F [facility] Comment on above: Performed By: #### P AB, CMP, CBC #### [address] Mean Corpuscular HGB Conc 32.3 g/dL Normal 32.0-35.0 [facility] Comment on above: Performed By: #### P AB, CMP, CBC #### [address] Monocytes (Bld) [#/Vol] 0.7 10*3/uL Normal 0.0-0.8 [facility] Comment on above: Performed By: #### P AB, CMP, CBC #### [address] Monocytes/100 WBC (Bld) 10.3 % Normal . F [facility] Comment on above: Performed By: #### P AB, CMP, CBC #### [address] Neutrophils (Bld) [#/Vol] 4.7 10*3/uL Normal 1.8-7.7 [facility] Comment on above: Performed By: #### P AB, CMP, CBC #### [address] Neutrophils/100 WBC (Bld) 66.3 % Normal . [facility] Comment on above: Performed By: #### P AB, CMP, CBC #### [address] NRBC% 0.2 /100{WBC} Normal 0-0.5 [facility] Comment on above: Performed By: #### P AB, CMP, CBC #### [address] Platelet mean volume (Bld) [Entitic vol] 9.0 fL Normal 6.3-10.7 [facility] Comment on above: Performed By: #### P AB, CMP, CBC #### [facility] [address] Platelets (Bld) [#/Vol] 201 10*3/uL Normal 150-450 [facility] Comment on above: Performed By: #### P AB, CMP, CBC #### [address] RBC (Bld) [#/Vol] 4.56 10*6/uL Normal 3.60-5.00 [facility] Comment on above: Performed By: #### P AB, CMP, CBC #### [address] WBC (Bld) [#/Vol] 7.1 10*3/uL Normal 3.8-11.6 [facility] Comment on above: Performed By: #### P AB, CMP, CBC #### [address] Comprehensive Metabolic Pane petrona 06-30-2022 Albumin [Mass/Vol] 3.3 g/dL Normal 3.2-5.5 [facility] Comment on above: Performed By: #### P AB, CMP, CBC #### [address] Albumin/Globulin [Mass ratio] 1.3 {ratio} Normal [facility] Comment on above: Performed By: #### P AB, CMP, CBC #### [address] ALP [Catalytic activity/Vol] 127 U/L High 32-92 [facility] Comment on above: Performed By: #### P AB, CMP, CBC #### [address] [place] [address] [place] ALT [Catalytic activity/Vol] 16 U/L Normal 10-60 [facility] Comment on above: Performed By: #### P AB, CMP, CBC #### [facility] [address] Anion gap [Moles/Vol] 11.4 mmol/L Normal 6.0-15.0 [facility] Comment on above: Performed By: #### P AB, CMP, CBC #### [facility] [address] AST [Catalytic activity/Vol] 19 U/L Normal 10-42 [facility] Comment on above: Performed By: #### P AB, CMP, CBC #### [facility] [address] Bilirubin [Mass/Vol] 1.0 mg/dL Normal 0.3-1.2 [facility] Comment on above: Performed By: #### P AB, CMP, CBC #### [facility] [address] Calcium [Mass/Vol] 8.8 mg/dL Normal 8.2-10.2 [facility] Comment on above: Performed By: #### P AB, CMP, CBC #### [facility] [address] [place] [address] [place] Chloride [Moles/Vol] 107 mmol/L Normal 95-114 [facility] Comment on above: Performed By: #### P AB, CMP, CBC #### [facility] [address] [place] [address] [place] CO2 [Moles/Vol] 22.7 mmol/L Normal 22.0-30.0 [facility] Comment on above: Performed By: #### P AB, CMP, CBC #### [facility] [address] [place] [address] [place] Creatinine [Mass/Vol] 1.21 mg/dL High 0.44-1.03 [facility] Comment on above: Performed By: #### P AB, CMP, CBC #### [facility] [address] [place] [address] Creatinine Clr Calc Pharmacy 51.34 [facility] Comment on above: Performed By: #### P AB, CMP, CBC #### [address] Estimated GFR ( Ana 52 [facility] Comment on above: Result Comment: GFR estimated reference range: According to KDOQI guidelines, <60 ml/min/1.73m2 is sufficient to diagnose a patient with chronic kidney disease. Performed By: #### P AB, CMP, CBC #### [address] Estimated GFR (Non- Am 43 [facility] Comment on above: Performed By: #### P AB, CMP, CBC #### [address] Globulin (S) [Mass/Vol] 2.6 g/dL Normal [facility] Comment on above: Performed By: #### P AB, CMP, CBC #### [address] Glucose [Mass/Vol] 141 mg/dL High 70-100 [facility] Comment on above: Result Comment: [place] Glucose Reference Range is dependent on time and content of last meal. Glucose of more than 200 mg/dL in a nonstressed, ambulatory subject supports the diagnosis of Diabetes Mellitus. ADA recommended reference range Performed By: #### P AB, CMP, CBC #### [address] Potassium [Moles/Vol] 4.1 mmol/L Normal 3.5-5.1 [facility] Comment on above: Performed By: #### P AB, CMP, CBC #### [address] Protein [Mass/Vol] 5.9 g/dL Low 6.1-7.9 [facility] Comment on above: Performed By: #### P AB, CMP, CBC #### [address] Sodium [Moles/Vol] 137 mmol/L Normal 136-146 [facility] Comment on above: Performed By: #### P AB, CMP, CBC #### [facility] [address] Urea nitrogen [Mass/Vol] 26 mg/dL High 9- [facility] Comment on above: Performed By: #### P AB, CMP, CBC #### [facility] [address] Globulin Calc (S) [Mass/Vol] Ordered By: Mariposa Martinez on 06-30-2022 Globulin (S) [Mass/Vol] 2.6 g/dL F [facility] Glucose Poct Glucometerson 0 06-30-2022 Glucose [Mass/Vol] 171 mg/dL Normal [facility] Comment on above: Result Comment: [facility] Glucose Reference Range is dependent on time and content of last meal. Glucose of more than 200 mg/dL in a nonstressed, ambulatory subject supports the diagnosis of Diabetes Mellitus. PERFORMED BY: [place] [address] PATHOLOGIST PAPERHANGER PIPE SHANNAN GARZA M.D. Performed By: #### B MP #### [address] Glucose [Mass/Vol] 141 mg/dL Normal [facility] Comment on above: Result Comment: [facility] Glucose Reference Range is dependent on time and content of last meal. Glucose of more than 200 mg/dL in a nonstressed, ambulatory subject supports the diagnosis of Diabetes Mellitus. PERFORMED BY: [place] [address] PATHOLOGIST PAPERHANGER PIPE SHANNAN GARZA M.D. Performed By: #### G LULS #### Point of Care testing , Prealbuminon 06-30-2022 Prealbumin [Mass/Vol] 24.2 mg/dL Normal 18.0-38.0 [facility] Comment on above: Result Comment: PERF ORMED BY: [place] [address] PATHOLOGIST PAPERHANGER PIPE SHANNAN GARZA M.D. Performed By: #### P AB, CMP, CBC #### [facility] [address] Protein [Mass/volume] in Ser um or PlasmaOrdered By: Mariposa Martinez on 06-30-2022 Protein [Mass/Vol] 5.9 g/dL 6.1-7.9 [facility] Serum or plasma alanine weeks otransferase measurement without P-5'-P (enzymatic activiOrdered By: Mariposa Martinez on 06-30-2022 ALT No additional P-5'-P [Catalytic activity/Vol] 16 U/L 10-60 [facility] Serum or plasma albumin/glob ulin mass ratioOrdered By: Mariposa Martinez on 06-30-2022 Albumin/Globulin [Mass ratio] 1.3 {ratio} [facility] Serum or plasma alkaline vish sphatase measurement (enzymatic activity/volume)Ordered By: Mariposa Martinez on 06-30-2022 ALP [Catalytic activity/Vol] 127 U/L 32-92 [facility] Serum or plasma aspartate am inotransferase measurement (enzymatic activity/volume)Ordered By: Mariposa Martinez on 06-30-2022 AST [Catalytic activity/Vol] 19 U/L 10-42 [facility] Serum or plasma prealbumin m easurement (mass/volume)Ordered By: Mariposa Martinez on 06-30-2022 Prealbumin [Mass/Vol] 24.2 mg/dL 18.0-38.0 [facility] Serum or plasma total biliru bin measurement (mass/volume)Ordered By: Mariposa Martinez on 06-30-2022 Bilirubin [Mass/Vol] 1.0 mg/dL 0.3-1.2 [facility] CHEMISTRYOrdered By: Lab ROP User on 06-29-2022 Glucose [Mass/Vol] 115 mg/dL High 55 - 99 mg/dL [facility] POC Subsection Comment on above: Result Comment: Emma gris Meter POC Device SN [id number] Invalid Interpretation Code [facility] POC Subsection POC User ID [id number] Invalid Interpretation Code [facility] POC Subsection POC Username MARIA C MILLER Invalid Interpretation Code [facility] POC Subsection CHEMISTRYOrdered By: Lab ROP User on 06-28-2022 Glucose [Mass/Vol] 120 mg/dL High 55 - 99 mg/dL [facility] POC Subsection Comment on above: Result Comment: Emma gris Meter POC Device SN [id number] Invalid Interpretation Code [facility] POC Subsection POC User ID [id number] Invalid Interpretation Code [facility] POC Subsection POC Username HÉCTOR WERNER Invalid Interpretation Code [facility] POC Subsection Glucose [Mass/Vol] 216 mg/dL High 55 - 99 mg/dL [facility] POC Subsection Comment on above: Result Comment: Emma gris Meter POC Device SN [id number] Invalid Interpretation Code [facility] POC Subsection POC User ID [id number] Invalid Interpretation Code [facility] POC Subsection POC Username ADILSON TOPETE Invalid Interpretation Code [facility] POC Subsection CHEMISTRYOrdered By: Lab ROP User on 06-27-2022 Glucose [Mass/Vol] 211 mg/dL High 55 - 99 mg/dL [facility] POC Subsection Comment on above: Result Comment: Noti mark WILSON/ POC Device SN [id number] Invalid Interpretation Code [facility] POC Subsection POC User ID [id number] Invalid Interpretation Code [facility] POC Subsection POC Username Frances Paul Invalid Interpretation Code [facility] POC Subsection Glucose [Mass/Vol] 161 mg/dL High 55 - 99 mg/dL [facility] POC Subsection Comment on above: Result Comment: Emma gris Meter POC Device SN [id number] Invalid Interpretation Code [facility] POC Subsection POC User ID [id number] Invalid Interpretation Code [facility] POC Subsection POC Username Frances Paul Invalid Interpretation Code [facility] POC Subsection CHEMISTRYOrdered By: Lab ROP User on 06-26-2022 Glucose [Mass/Vol] 209 mg/dL High 55 - 99 mg/dL [facility] POC Subsection Comment on above: Result Comment: Run Lab Confirmation POC Device SN [id number] Invalid Interpretation Code [facility] POC Subsection POC User ID [id number] Invalid Interpretation Code [facility] POC Subsection POC [...] 53 mL/min/1.73 m2 Low >=59mL/min/ 1.73 m2 [facility] Chem S GFR/1.73 sq M.predicted among non-blacks MDRD (S/P/Bld) [Vol rate/Area] 44 mL/min/1.73 m2 Low >=59mL/min/ 1.73 m2 [facility] Chem S Glucose [Mass/Vol] 203 mg/dL High [...] 6.0 E9/L Normal 4.0 - 11.0 E9/L [facility] HemeAutoSS CEFEPIME:SUSC:PT:ISOLATE:ORD QN:MICOrdered By: Deborah Garcia on 06-23-2022 Cefepime MARITZA [Susc] >100,000 cfu/ml Escherichia coli [facility] CHEMISTRYOrdered By: SYSTEM SYSTEM on 06-23-2022 [...] 48 mL/min/1.73 m2 Low >=59mL/min/ 1.73 m2 [facility] Chem S GFR/1.73 sq M.predicted among non-blacks MDRD (S/P/Bld) [Vol rate/Area] 40 mL/min/1.73 m2 Low >=59mL/min/ 1.73 m2 [facility] Chem S Glucose [Mass/Vol] 144 mg/dL Normal [...] 2.5 second(s) [facility] Auto Coag Cefepime [facility]Ordered B y: Deborah Garcia on 06-23-2022 Escherichia coli Escherichia coli [facility] HEMATOLOGYOrdered By: SYSTEM SYSTEM on 06-23-2022 Basophils/100 [...] AM) Normal Negative [facility] UA Auto SS [place].plasma/[place]. RBC (Bld) [Mass ratio] 0-3 /HPF Normal [...] [facility] UA Auto SS Urobilinogen Qn (U) 0.4308711 {Dasia'U}/dL Normal 0.0 - 1.0 EU/dL [facility] [...] 40 mL/min/1.73 m2 Low >=59mL/min/ 1.73 m2 [facility] Chem S Glucose [Mass/Vol] 112 mg/dL Normal [...] ratio] 14 mg/mg Normal 10 - 20 [facility] Remisol CHEMISTRYOrdered By: Carolin Rivera on 02-16-2022 Albumin Elph (U) [Mass fraction] mg/dL Invalid Interpretation Code [facility] Remisol Creatinine (U) [Mass/Vol] 101.8 mg/dL Invalid Interpretation Code [facility] Remisol U Prot/Creat Ratio [facility] Invalid Interpretation Code 0.00 - 200.00 [facility] Remisol URINALYSISOrdered By: Rui Randall on 02-16-2022 Bacteria LM Ql (Urine sed) 3+ /HPF Invalid Interpretation Code Trace/HPF [facility] UA Auto SS Bilirubin Ql (U) Negative [...] AM) Normal Negative [facility] UA Auto SS [place]plasma/[place]. RBC (Bld) [Mass ratio] 0-3 /HPF Normal [...] [facility] UA Auto SS Urobilinogen Qn (U) 0.6557417 {Dasia'U}/dL Normal 0.0 - 1.0 EU/dL [facility] UA Auto SS WBC Auto Ql (U) Trace *ABN* (02/16/22 6:30 AM) Invalid Interpretation Code Negative [facility] UA Auto SS WBC LM.HPF (Urine sed) [#/Area] 6-15 /HPF Invalid Interpretation Code 0-5/HPF [facility] UA Auto SS Progress Noteson 12-10-2021 Research Program Internship Authentication Interface Message Text EMERGENCY TRIAGE, TREAT AND TRANSPORT (ET3) DOCUMENTATION OF TELEHEALTH VISIT Date / Time: 12/10/2021 / 1245AM Name: Chacho Edwards: 1945 SSN: (Not on file) EMS Agency: [facility] [x] Verbal consent obtained [x] [...] Completed by: Jasbir Jay MD Normal [facility] [employer] [facility] GLUCOSE-POCTon 05-24-2021 Glucose [Mass/Vol] 185 mg/dL High 74 - 99 [facility] Comment on above: Performed By: #### G CALE #### [facility] [address] [place] [address] Glucose [Mass/Vol] 165 mg/dL High 74 - 99 [facility] Comment on above: Performed By: #### G CALE #### [facility] [address] [place] [address] Order Reconciliationon 05-24 Order Reconciliation Page 1 [...] once a (more content not included)... [facility] Patient Profile - Preop v3on 05-24-2021 Patient Profile - Preop v3 Patient Profile - Preop: Initial Info: Patient DemographicsName: CHACHO EDWARDS Date: 1945 Address: [address] [place] [address] Primary Phone [phone] How to be AddressedSONJA Spoken Language PreferredEnglish Source of Informationpatient Stated Reason for AdmissionBACK SURGERY Primary Contact Name and NumberANGELA SOO- [phone] Patient Belongingsremains with patient Patient Belongings Remaining with Patientclothing; vision aids Medications Brought to Hospitalno General Health: Weight in kg120.5 kilogram(s) Weight in cva367.6 pound(s) Weight Methodactual (measured) Scale Typechair Height [...] Living Arrangementshouse Resource/Environmenta l Concernsnone [facility] home with help/services Services Anticipated at Transitionnone Tobacco Use: Tobacco Useno Pre-op Checklist: Arrival [id number] Arrival Time08:04 Procedure TypeT9 LAMINECTOMY FOR INSERTION OF SPINAL CORD STIMULATOR AND PULSE GENERATOR NPOyes Last Food [id number] 20:00 Last Clear Fluid [id number] 07:30 ID Band On Patientpatient ID (name), allergy Consent Signedyes H&P Completeyes Anesthesia Assessment Completedpending EKG PerformedON CHART Chest X-Ray Performednot ordered Preop Antibioticssent to OR COVID 19 Results in Last 7 daysYES Glucose Arkake467 Type and Screen Resultedyes HCG Urine TestN/A [...] 24-May-2021 09:47 by Magalys Bal (RN) [facility] CORONAVIRUS 2019, SCREEN ASY MPTOMATICon 05-23-2021 SARS-CoV-2 (COVID-19) RNA CARMELA+probe Ql (Unsp spec) Not detected Normal Not Detected [facility] Comment on above: Result Comment: . This [...] patient management decisions. Fact sheet for providers: https://www.fda.gov/media/511720/download Fact sheet for patients: https://www.fda.gov/media/797131/download This test has received FDA Emergency Use Authorization (EUA) and has been verified by [facility] ([facility]). This test is only authorized for the duration of time that circumstances exist to justify the authorization of the emergency use of in vitro diagnostic tests for the detection of SARS-CoV-2 virus and/or diagnosis of COVID-19 infection under section 564(b)(1) of the Act, 21 U.S.C. 360bbb-3(b)(1), unless the authorization is terminated or revoked sooner. [facility] is certified under CLIA-88 as qualified to perform high complexity testing. Testing is performed in the [facility] laboratories located at [id number] [place] [address]. Performed By: #### C OVSC #### [facility] [id number] [place] [address] Lab Specimen Source Nasal, Nasopharyngeal Normal [facility] Comment on above: Performed By: #### C OVSC #### [place] [address] Covid 19 Resultson 1 SARS-CoV-2 (COVID-19) RNA [...] You may also be contacted by the [facility] to see if any of your close [...] or Naproxen (Aleve) can also be used. Izlp-nhp-idzwbld cough and cold medicines can be used according to the instructions on the package. Some ifmt-paw-emfwrbt medicines also contain acetaminophen. Make sure you [...] water are not available, use alcohol-based hand chocolate maker. Avoid touching your eyes, nose, and mouth [...] 24 darlyn (more content not included)... Normal [facility] CBCon 05-17-2021 Erythrocyte distribution width (RBC) [Ratio] 12.5 % Normal 11.5 - 14.5 [facility] Comment on above: Performed By: #### C BC #### [address] [address] Hematocrit (Bld) [Volume fraction] 42.5 % Normal 36.0 - 46.0 [facility] Comment on above: Performed By: #### C BC #### [address] [address] Hemoglobin (Bld) [Mass/Vol] 13.8 g/dL Normal 12.0 - 16.0 [facility] Comment on above: Performed By: #### C BC #### [address] [address] MCHC (RBC) [Mass/Vol] 32.5 g/dL Normal 32.0 - 36.0 [facility] Comment on above: Performed By: #### C BC #### [address] [address] MCV (RBC) [Entitic vol] 94 fL Normal 80 - 100 [facility] Comment on above: Performed By: #### C BC #### [address] [address] NUCLEATED RBC 0.0 /100 WBC Normal 0.0 - 0.0 [facility] Comment on above: Performed By: #### C BC #### [address] [address] Platelets (Bld) [#/Vol] 234 10*3/uL Normal 150 - 450 [facility] Comment on above: Performed By: #### C BC #### [address] [address] RBC 4.50 x10E12/L Normal 4.00 - 5.20 [facility] Comment on above: Performed By: #### C BC #### [address] [address] WBC (Bld) [#/Vol] 5.7 10*3/uL Normal 4.4 - 11.3 [facility] Comment on above: Performed By: #### C BC #### [address] [address] COMPREHENSIVE PANELon 2020 Albumin [Mass/Vol] 4.1 g/dL Normal 3.4 - 5.0 [facility] Comment on above: Performed By: #### C MP #### [address] [address] ALP [Catalytic activity/Vol] 142 U/L High 33 - 136 [facility] Comment on above: Performed By: #### C MP #### [address] [address] ALT [Catalytic activity/Vol] 8 U/L Normal 7 - 45 [facility] Comment on above: Result Comment: Cherry ents treated with Sulfasalazine may generate falsely decreased results for ALT. Performed By: #### C MP #### [address] [address] Anion gap [Moles/Vol] 11 mmol/L Normal 10 - 20 [facility] Comment on above: Performed By: #### C MP #### [address] [address] AST [Catalytic activity/Vol] 11 U/L Normal 9 - 39 [facility] Comment on above: Performed By: #### C MP #### [address] [address] Bilirubin [Mass/Vol] 0.5 mg/dL Normal 0.0 - 1.2 [facility] Comment on above: Performed By: #### C MP #### [address] [address] Calcium [Mass/Vol] 8.7 mg/dL Normal 8.6 - 10.3 [facility] Comment on above: Performed By: #### C MP #### [address] [address] Chloride [Moles/Vol] 107 mmol/L Normal 98 - 107 [facility] Comment on above: Performed By: #### C MP #### [address] [address] Creatinine [Mass/Vol] 1.32 mg/dL High 0.50 - 1.05 [facility] Comment on above: Performed By: #### C MP #### [address] [address] GFR- AM. 47 mL/min/1.73m2 Abnormal >60 [facility] Comment on above: Result Comment: CALC ULATIONS OF ESTIMATED GFR ARE PERFORMED USING THE MDRD STUDY EQUATION FOR THE IDMS-TRACEABLE CREATININE METHODS. CLIN CHEM 2007;53:766-72 Performed By: #### C MP #### [address] [address] GFR-NON AM. 39 mL/min/1.73m2 Abnormal >60 [facility] Comment on above: Performed By: #### C MP #### [address] [address] Glucose [Mass/Vol] 140 mg/dL High 74 - 99 [facility] Comment on above: Performed By: #### C MP #### [address] [address] HCO3 (Bld) [Moles/Vol] 26 mmol/L Normal 21 - 32 [facility] Comment on above: Performed By: #### C MP #### [address] [address] Potassium [Moles/Vol] 4.1 mmol/L Normal 3.5 - 5.3 [facility] Comment on above: Performed By: #### C MP #### [address] [address] Protein [Mass/Vol] 6.7 g/dL Normal 6.4 - 8.2 [facility] Comment on above: Performed By: #### C MP #### [address] [address] Sodium [Moles/Vol] 140 mmol/L Normal 136 - 145 [facility] Comment on above: Performed By: #### C MP #### [address] [address] Urea nitrogen [Mass/Vol] 19 mg/dL Normal 6 - 23 [facility] Comment on above: Performed By: #### C MP #### [address] [address] STAPH/MRSA SCREENon 05-17-20 STAPH/MRSA SCREEN PATIENT: RAHUL EDWARDS LOCATION: [facility]#: [id number] : [birth year] AGE: SEX: F ORDERED BY: SAM VIRK SOURCE: ANTERIOR NARES COLLECTED: 05/17/21 13:17 ANTIBIOTICS AT ALYCE.: RECEIVED : 05/17/21 21:24 SITE: NARE R E S U L T S STAPH/MRSA SCREEN FINAL 05/19/21 09:50 NO Staphylococcus aureus ISOLATED. [facility] Comment on above: Performed By: #### S TAPH #### [facility] [address] [place] [address] TYPE + SCREENon 05-17-2021 ABO TYPE O [facility] Comment on above: Performed By: #### T +S #### [address] [place] [address] RH TYPE Positive [facility] Comment on above: Performed By: #### T +S #### [address] [place] [address] Vital Signs Date Time Vital Sign Value Performing Clinician Facility 05-21-2023 13:25-0500 Blood Pressure Location Radha Lue [facility] 05-21-2023 13:25-0500 Diastolic blood pressure 107 mm[Hg] Radha Lue [facility] 05-21-2023 13:25-0500 Heart rate 78 /min Radha Lue [facility] 05-21-2023 13:25-0500 Respiratory rate 16 /min Radha Lue [facility] 05-21-2023 13:25-0500 Systolic blood pressure 145 mm[Hg] Radha Lue [facility] 03-02-2023 11:22-0400 Diastolic blood pressure 74 mm[Hg] [employer] [facility] 03-02-2023 11:22-0400 Heart rate 67 /min [employer] [facility] 03-02-2023 11:22-0400 Mean blood pressure 92 mm[Hg] [employer] [facility] 03-02-2023 11:22-0400 Respiratory rate 14 /min [employer] [facility] 03-02-2023 11:22-0400 Systolic blood pressure 129 mm[Hg] [employer] [facility] 01-19-2023 09:14-0400 Diastolic blood pressure 66 mm[Hg] Dustin Zumbar [facility] 01-19-2023 09:14-0400 Heart rate 67 /min Dustin Zumbar [facility] 01-19-2023 09:14-0400 Mean blood pressure 85 mm[Hg] Dustin Zumbar [facility] 01-19-2023 09:14-0400 Respiratory rate 12 /min Dustin Zumbar [facility] 01-19-2023 09:14-0400 Systolic blood pressure 123 mm[Hg] Dustin Zumbar [facility] 01-10-2023 09:06-0400 Heart rate 70 /min Dustin Zumbar [facility] 01-10-2023 09:06-0400 SaO2% (BldA) [Mass fraction] 98 % Dustin Zumbar [facility] 01-10-2023 09:06-0400 Respiratory rate 16 /min Dustin Zumbar [facility] 01-10-2023 09:06-0400 Diastolic blood pressure 79 mm[Hg] Dustin Zumbar [facility] 01-10-2023 09:06-0400 Mean blood pressure 103 mm[Hg] Dustin Zumbar [facility] 01-10-2023 09:06-0400 Systolic blood pressure 151 mm[Hg] Dustin Zumbar [facility] 01-10-2023 09:02-0400 Heart rate 70 /min Dustin Zumbar [facility] 01-10-2023 09:02-0400 SaO2% (BldA) [Mass fraction] 97 % Dustin Zumbar [facility] 01-10-2023 09:02-0400 Respiratory rate 16 /min Dustin Zumbar [facility] 01-10-2023 09:02-0400 Diastolic blood pressure 69 mm[Hg] Dustin Zumbar [facility] 01-10-2023 09:02-0400 Mean blood pressure 88 mm[Hg] Dustin Zumbar [facility] 01-10-2023 09:02-0400 Systolic blood pressure 126 mm[Hg] Dustin Zumbar [facility] 01-10-2023 09:02-0400 Body temperature 97.52 [degF] Dustin Zumbar [facility] 01-10-2023 08:55-0400 Diastolic blood pressure 64 mm[Hg] Dustin Zumbar [facility] 01-10-2023 08:55-0400 Heart rate 67 /min Dustin Zumbar [facility] 01-10-2023 08:55-0400 SaO2% (BldA) [Mass fraction] 99 % Dustin Zumbar [facility] 01-10-2023 08:55-0400 Systolic blood pressure 109 mm[Hg] Dustin Zumbar [facility] 01-10-2023 08:22-0400 Respiratory rate 18 /min Dustin Zumbar [facility] 01-10-2023 07:40-0400 Mean blood pressure 94 mm[Hg] Dustin Zumbar [facility] 01-10-2023 07:40-0400 Body temperature 97.7 [degF] Dustin Zumbar [facility] 12-31-2022 22:35-0400 Body temperature 97.88 [degF] Pantera [employer] [facility] 12-31-2022 22:35-0400 Diastolic blood pressure 92 mm[Hg] [employer] [facility] 12-31-2022 22:35-0400 Heart rate 78 /min [employer] [facility] 12-31-2022 22:35-0400 Respiratory rate 20 /min [employer] [facility] 12-31-2022 22:35-0400 SaO2% (BldA) [Mass fraction] 94 % [employer] [facility] 12-31-2022 22:35-0400 Systolic blood pressure 169 mm[Hg] [employer] [facility] 12-13-2022 07:18-0400 Heart rate 71 /min Dustin Zumbar [facility] 12-13-2022 07:18-0400 SaO2% (BldA) [Mass fraction] 98 % Dustin Zumbar [facility] 12-13-2022 07:18-0400 Body temperature 97.7 [degF] Dustin Zumbar [facility] 12-13-2022 07:18-0400 Diastolic blood pressure 81 mm[Hg] Dustin Zumbar [facility] 12-13-2022 07:18-0400 Mean blood pressure 102 mm[Hg] Dustin Zumbar [facility] 12-13-2022 07:18-0400 Systolic blood pressure 145 mm[Hg] Dustin Zumbar [facility] 12-13-2022 07:17-0400 Respiratory rate 12 /min Dustin Zumbar [facility] 12-06-2022 11:06-0400 Diastolic blood pressure 70 mm[Hg] Dustin Zumbar [facility] 12-06-2022 11:06-0400 Heart rate 67 /min Dustin Zumbar [facility] 12-06-2022 11:06-0400 Mean blood pressure 84 mm[Hg] Dustin Zumbar [facility] 12-06-2022 11:06-0400 Respiratory rate 18 /min Dustin Zumbar [facility] 12-06-2022 11:06-0400 Systolic blood pressure 111 mm[Hg] Dustin Zumbar [facility] 10-26-2022 12:48-0400 Diastolic blood pressure 76 mm[Hg] Dustin Zumbar [facility] 10-26-2022 12:48-0400 Heart rate 75 /min Dustin Zumbar [facility] 10-26-2022 12:48-0400 Mean blood pressure 97 mm[Hg] Dustin Zumbar [facility] 10-26-2022 12:48-0400 Respiratory rate 18 /min Dustin Zumbar [facility] 10-26-2022 12:48-0400 Systolic blood pressure 140 mm[Hg] Dustin Zumbar [facility] 10-24-2022 11:40-0400 Body height 158.75 cm Daryl Oliver Other [employer] Other 10-24-2022 11:40-0400 Body mass index (BMI) [Ratio] 51.83 kg/m2 Daryl Oliver Other [employer] Other 10-24-2022 11:40-0400 Body weight 130.64 kg Daryl Oliver Other [employer] [facility] [employer] Other 10-24-2022 11:40-0400 Diastolic blood pressure 70 mm[Hg] Daryl Oliver Other [employer] [facility] [employer] Other 10-24-2022 11:40-0400 Systolic blood pressure 124 mm[Hg] Daryl Oliver Other [facility] [employer] Other 09-02-2022 12:08-0400 Blood Pressure Location [employer] [facility] 09-02-2022 12:08-0400 Body temperature 97.52 [degF] [employer] [facility] 09-02-2022 12:08-0400 Diastolic blood pressure 76 mm[Hg] Verónica Orzech [facility] 09-02-2022 12:08-0400 Heart rate 97 /min Verónica Orzech [facility] 09-02-2022 12:08-0400 SaO2% (BldA) [Mass fraction] 96 % Verónica Orzech [facility] 09-02-2022 12:08-0400 Systolic blood pressure 118 mm[Hg] Verónica Orzech [facility] 07-13-2022 03:59-0500 Body temperature 97.6 [degF] MD Lani Méndez Work Phone: [facility] 07-13-2022 03:59-0500 Diastolic blood pressure 74 mm[Hg] MD Lani Méndez Work Phone: [facility] 07-13-2022 03:59-0500 Heart rate 73 /min MD Lani Méndez Work Phone: [facility] 07-13-2022 03:59-0500 Respiratory rate 16 /min MD Lani Méndez Work Phone: [facility] 07-13-2022 03:59-0500 SaO2% (BldA) [Mass fraction] 95 % MD Lani Méndez Work Phone: [facility] 07-13-2022 03:59-0500 Systolic blood pressure 116 mm[Hg] MD Lani Méndez Work Phone: [facility] 07-09-2022 05:06-0500 Body weight 124.1 kg MD Lani Méndez Work Phone: [facility] 07-07-2022 16:24-0500 Body height 162.56 cm MD Lani Méndez Work Phone: [facility] 07-02-2022 08:26-0500 Inhaled oxygen concentration 97 % MD Lani Méndez Work Phone: [facility] 06-27-2022 16:00-0500 Hourly Rounding Hasan AMIR [facility] 06-27-2022 16:00-0500 Promise to Return Hasan AMIR [facility] 06-27-2022 15:10-0500 Hourly Rounding Hasan AMIR [facility] 06-27-2022 15:10-0500 Promise to Return Hasan [facility] 06-27-2022 14:00-0500 Hourly Rounding Hasan AMIR [facility] 06-27-2022 14:00-0500 Promise to Return Hasan [facility] 06-27-2022 12:30-0500 Blood Pressure Location Hasan AMIR [facility] 06-27-2022 12:30-0500 Body temperature 97.88 [degF] [facility] 06-27-2022 12:30-0500 Diastolic blood pressure 69 mm[Hg] Hasan AMIR [facility] 06-27-2022 12:30-0500 Heart rate 60 /min Hasan [facility] 06-27-2022 12:30-0500 Mean blood pressure 96 mm[Hg] Hasan AMIR [facility] 06-27-2022 12:30-0500 Respiratory rate 16 /min Hasan AMIR [facility] 06-27-2022 12:30-0500 SaO2% (BldA) [Mass fraction] 100 % Hasan AMIR [facility] 06-27-2022 12:30-0500 Systolic blood pressure 149 mm[Hg] Hasan AMIR [facility] 06-27-2022 08:46-0500 Diastolic blood pressure 71 mm[Hg] Hasan AMIR [facility] 06-27-2022 08:46-0500 Systolic blood pressure 131 mm[Hg] Hasan AMIR [facility] 06-27-2022 08:43-0500 Heart rate 54 /min Hasan AMIR [facility] 06-27-2022 08:43-0500 SaO2% (BldA) [Mass fraction] 97 % Hasan AMIR [facility] 06-27-2022 08:43-0500 Respiratory rate 16 /min Hasan AMIR [facility] 06-27-2022 08:43-0500 Diastolic blood pressure 71 mm[Hg] Hasan AMIR [facility] 06-27-2022 08:43-0500 Mean blood pressure 91 mm[Hg] Hasan AMIR [facility] 06-27-2022 08:43-0500 Systolic blood pressure 131 mm[Hg] Hasan AMIR [facility] 06-27-2022 08:42-0500 Body temperature 97.34 [degF] Hasan AMIR [facility] 06-27-2022 07:34-0500 SaO2% (BldA) [Mass fraction] 96 % Hasan AMIR [facility] 06-26-2022 23:38-0500 Blood Pressure Location Hasan AMIR [facility] 06-26-2022 23:38-0500 Body temperature 97.88 [degF] Hasan AMIR [facility] 06-26-2022 23:38-0500 Heart rate 56 /min Hasan AMIR [facility] 06-26-2022 23:38-0500 Mean blood pressure 86 mm[Hg] Hasan AMIR [facility] 06-26-2022 23:38-0500 Respiratory rate 18 /min Hasan AMIR [facility] 06-26-2022 20:47-0500 gluc 206 mg/dL Hasan AMIR [facility] 06-26-2022 20:44-0500 Heart rate 95 /min Hasan AMIR [facility] 06-26-2022 20:09-0500 Mean blood pressure 95 mm[Hg] Hasan AMIR [facility] 06-26-2022 20:09-0500 Body temperature 97.88 [degF] Hasan AMIR [facility] 06-26-2022 18:12-0500 gluc 240 mg/dL Hasan AMIR [facility] 06-26-2022 17:12-0500 Mean blood pressure 82 mm[Hg] Hasan AMIR [facility] 06-26-2022 17:00-0500 Body temperature 98.24 [degF] Hasan AMIR [facility] 06-26-2022 11:00-0500 Heart rate 66 /min Hasan AMIR [facility] 06-26-2022 10:15-0500 gluc 210 mg/dL Hasan AMIR [facility] 06-25-2022 16:00-0500 Mean blood pressure 93 mm[Hg] Hasan AMIR [facility] 06-24-2022 21:38-0500 Body temperature 98.24 [degF] Hasan AMIR [facility] 06-23-2022 12:25-0500 Heart rate 75 /min Hasan AMIR [facility] 06-23-2022 09:35-0500 gluc Hasan AMIR [facility] 06-23-2022 09:00-0500 Respiratory rate 22 /min Hasan AMIR [facility] 06-23-2022 08:45-0500 Respiratory rate 11 /min Hasan AMIR [facility] 06-23-2022 08:00-0500 Respiratory rate 12 /min Hasan AMIR [facility] 06-23-2022 07:05-0500 gluc Hasan AMIR [facility] 06-23-2022 07:05-0500 Heart rate 78 /min Hasan AMIR [facility] 06-01-2022 14:31-0500 Diastolic blood pressure 79 mm[Hg] Dustin Zumbar [facility] 06-01-2022 14:31-0500 Heart rate 67 /min Dustin Zumbar [facility] 06-01-2022 14:31-0500 Mean blood pressure 96 mm[Hg] Dustin Zumbar [facility] 06-01-2022 14:31-0500 Respiratory rate 18 /min Dustin Zumbar [facility] 06-01-2022 14:31-0500 Systolic blood pressure 129 mm[Hg] Dustin Zumbar [facility] 12-10-2021 00:45-0400 Diastolic blood pressure 83 mm[Hg] [facility] 12-10-2021 00:45-0400 Heart rate 74 /min [facility] 12-10-2021 00:45-0400 SaO2% (BldA) [Mass fraction] 97 % Et3 [facility] 12-10-2021 00:45-0400 Systolic blood pressure 124 mm[Hg] Et3 [facility] 11-09-2021 13:42-0400 Diastolic blood pressure 76 mm[Hg] Dustin Sloanumbar [facility] 11-09-2021 13:42-0400 Heart rate 16 /min Dustin Zumbar [facility] 11-09-2021 13:42-0400 Mean blood pressure 98 mm[Hg] Dustin Zumbar [facility] 11-09-2021 13:42-0400 Respiratory rate 74 /min Dustin Zumbar [facility] 11-09-2021 13:42-0400 Systolic blood pressure 141 mm[Hg] Dustin Zumbar [facility] Encounters Encounter Date Encounter Type Care Provider Facility Start: 08-06-2023 End: 08-07-2023 ambulatory Radha Farias Facility:[facility] Start: 08-06-2023 End: 08-06-2023 Patient encounter procedure Radha Farias [facility] Start: 08-02-2023 End: 08-02-2023 ambulatory LANI Castro ALLSOP Not Available Start: 07-05-2023 End: 07-06-2023 ambulatory Shawn Akkina Facility:[facility] Start: 07-05-2023 End: 07-05-2023 Patient encounter procedure Shawn Akkina [facility] Start: 06-28-2023 End: 06-28-2023 ambulatory JANA Kurt SOARES Not Available Start: 06-05-2023 End: 06-05-2023 ambulatory CYNDI A DONNAMILLER Not Available Start: 05-24-2023 End: 05-24-2023 ambulatory JANA DOLCE Not Available Start: 05-21-2023 End: 05-22-2023 ambulatory Lani D Allsop Facility:[facility] Start: 05-21-2023 End: 05-21-2023 Patient encounter procedure Radha CobosConnie Jarrett [facility] Start: 05-17-2023 End: 05-17-2023 ambulatory PETTY Foy CELINA Not Available Start: 04-30-2023 End: 04-30-2023 ambulatory LANI Gloria ALLSOP Not Available Start: 03-14-2023 End: 03-15-2023 ambulatory Esteban Francois Facility:[facility] Start: 03-02-2023 End: 03-03-2023 ambulatory Mirna Bryant Facility:[facility] Start: 03-02-2023 End: 03-02-2023 Pain Management Mirna Bryant [facility] Start: 01-25-2023 End: 06-18-2023 ambulatory Jana R Dolce Facility:[facility] Start: 01-24-2023 ambulatory MD Dustin Gonzales [facility] ity:[facility] Start: 01-19-2023 End: 01-20-2023 ambulatory Lani Gloria Allsop Facility:[facility] Start: 01-19-2023 End: 01-19-2023 Pain Management Dustin Gonzales [facility] Start: 01-10-2023 End: 01-11-2023 ambulatory MD Dustin Gonzales Facility:[facility] Start: 01-10-2023 End: 01-10-2023 Pain Management Dustin Gonzales [facility] Start: 01-03-2023 End: 01-04-2023 ambulatory Shawn Bermudez Facility:[facility] Start: 01-03-2023 End: 01-03-2023 Patient encounter procedure Shawn Bermudez [facility] Start: 01-01-2023 End: 01-01-2023 Emergency department patient visit Pantera Wise Facility:[facility] Start: 12-31-2022 End: 12-31-2022 Emergency department patient visit Pantera GrimaldoConnie Wise [facility] Start: 12-13-2022 End: 12-14-2022 ambulatory MD Dustin Gonzales Facility:[facility] Start: 12-13-2022 End: 12-13-2022 Pain Management Dustin Gonzales [facility] Start: 12-06-2022 End: 12-07-2022 ambulatory MD Dustin Gonzales Facility:[facility] Start: 12-06-2022 End: 12-06-2022 Pain Management Dustin Gonzales [facility] Start: 10-26-2022 End: 10-27-2022 ambulatory MD Dustin Gonzales Facility:[facility] Start: 10-26-2022 End: 10-26-2022 Pain Management Dustin Gonzales [facility] Start: 10-24-2022 End: 10-24-2022 ambulatory Daryl Oliver Other [facility] [employer] Other Start: 10-24-2022 Office outpatient ne w 60 minutes Daryl Oliver [facility] Start: 09-13-2022 End: 09-14-2022 ambulatory Dustin Gonzales Facility:[facility] Start: 09-13-2022 End: 09-13-2022 Patient encounter procedure Dustin Zmonica [facility] Start: 09-02-2022 End: 09-03-2022 ambulatory Verónica X Orzech Facility:[facility] Start: 09-02-2022 End: 09-03-2022 ambulatory Verónica X Orzech Facility:[facility] Start: 09-02-2022 End: 09-02-2022 Lab Drop off Verónica X Orzech [facility] Start: 09-02-2022 End: 09-02-2022 Patient encounter procedure Verónica X Orzech [facility] Start: 08-31-2022 End: 09-01-2022 ambulatory MD Dustin Gonzales Facility:[facility] Start: 06-29-2022 End: 07-13-2022 Evaluation and management of inpatient Delio Gonzales Facility:[facility] Start: 06-29-2022 End: 07-13-2022 Evaluation and management of inpatient MD Lani Méndez Work Phone: [facility] Work Phone: Start: 06-28-2022 End: 06-30-2022 Pre-admission assessment Harjeet YENY [facility] Start: 06-28-2022 End: 06-28-2022 Off-Site [facility] Start: 06-27-2022 End: 06-29-2022 Evaluation and management of inpatient Harjeet YENY [facility] Start: 06-23-2022 End: 06-27-2022 Evaluation and management of inpatient Kimani RUBIO [facility] Start: 06-01-2022 End: 06-01-2022 Pain Management Dustin Gonzales [facility] Start: 02-16-2022 End: 02-16-2022 Patient encounter procedure Shawn Bermudez [facility] Start: 12-10-2021 End: 12-12-2021 ambulatory UNKNOWN PROVIDER Facility:[facility] Start: 12-10-2021 End: 12-10-2021 ambulatory [facility] Emergenc y Triage, Treat and Transport Start: 12-10-2021 End: 12-10-2021 Emergency department patient visit [facility] Emergency Triage, Treat and Transport Comment on above: Arrived Start: 11-09-2021 End: 11-09-2021 Pain Management Dustinrayshawn Gonzales [facility] Start: 07-10-2019 End: 07-10-2019 [facility] Procedures Date Procedure Procedure Detail Performing Clinician Start: 01-10-2023 Peripheral neurostim ulator, device (physical object) Dustin Gonzales Comment on above: Explant of SCS inter nal pulse generator Start: 05-17-2021 Antibody screen Comment on above: Performed By: #### T +S #### [facility] [address] [place] [address] Start: 03-09-2021 Implantation of neurostimulator in spine Dustin Gonzales Comment on above: Bioscientific 75% re lief Start: 09-15-2020 Injection of sacroil iac joint Dustin Gonzales Start: 04-28-2020 Injection of nerve r oot of lumbar spine using fluoroscopic guidance Dustin Gonzales Comment on above: bilateral L3- no rel ief Start: 12-02-2019 Decompression of lum bar spine [facility] Comment on above: Mild procedure pt cagle s not any relief yet Start: 07-10-2019 Dual energy X-ray ph oton absorptiometry Lani Méndez Start: 03-19-2019 Magnetic resonance imaging [facility] Comment on above: MRI W/SEDATION Lumba r Start: 03-13-2019 Arthroscopy of knee Lito mead [employer] [employer] Comment on above: left knee meniscal w ork Start: 10-09-2018 Injection of sacroil iac joint using fluoroscopic guidance [facility] Comment on above: bilat SIJI- 40% reli ef x 2 weeks then pain returned Start: 08-07-2018 Epidural injection o f lumbar spine using fluoroscopic guidance [facility] Comment on above: 30% relief 2-3 weeks L2-L3 Start: 04-17-2018 Epidural injection o f lumbar spine using fluoroscopic guidance [facility] Comment on above: L2-3 DL- 30% relief to present Start: 02-20-2018 Injection of sacroil iac joint using fluoroscopic guidance [facility] Comment on above: b/l SJI 0% no relief , increased pain afterwards Start: 11-21-2017 Transforaminal Epidu ral Steriod Injection bilateral L3 10 [facility] Comment on above: 10% relief Start: 11-21-2017 Transforaminal Epidu ral Steriod Injection bilateral L3 11 [facility] Comment on above: 10% relief Start: 09-06-2017 Supartz injection ri ght knee #5 11 [facility] Comment on above: No relief Start: 09-06-2017 Supartz injection ri ght knee #5 12 [facility] Comment on above: No relief Start: 08-02-2017 Supartz injection ri ght knee #4 Dustin Sloanumbar Start: 07-19-2017 Supartz injection ri ght knee #3 12 Dustin Sloanumbar Comment on above: 30% relief Start: 07-19-2017 Supartz injection ri ght knee #3 13 Dustin Zumbar Comment on above: 30% relief Start: 07-11-2017 Radiofrequency ablat ion of medial branch of lumbar nerve using fluoroscopic guidance Dustin Sloan[facility] Comment on above: bilateral L2-L5--0% relief Start: 07-05-2017 Injection of knee joint Dustin Sloanumbar Comment on above: Right-0% relief Start: 06-21-2017 Supartz Injection to Right knee 15 Dustin Zumbar Comment on above: right Start: 06-21-2017 Supartz Injection to Right knee 16 Dustin Sloanumbar Comment on above: right Start: 09-27-2016 Injection into facet joint of lumbar spine using fluoroscopic guidance [facility] Comment on above: B/L L3-S1 100% relie f for 8 hours, pain gradually returned Start: 08-09-2016 bilateral lumbar fac et injections l3-s1 17 [facility] Comment on above: bilateral lumbar fac et injection l3-s1, 80% relief for one day, now back to baseline Start: 08-09-2016 bilateral lumbar fac et injections l3-s1 18 [employer] Comment on above: bilateral lumbar fac et injection l3-s1, 80% relief for one day, now back to baseline Augmentation of bladder Rivera oliver S[facility] Bilateral Radio freq uency sacroiliac ablation S1-3 18 [facility] Comment on above: No relief Bilateral Radio [...] Date Care Activity Detail Author Start: 07-12-2022 [facility] Start: 06-29-2022 [facility] Start: 06-29-2022 Hospital admission [facility] Start: 06-29-2022 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 [facility] Start: 2011 Pneumococcal vaccination Pneumococcal Vaccine(s) (65+ [...] 1964 Hepatitis C screening Hepatitis C Antibody [facility] Start: 1964 Tetanus + diphtheria + acellular pertussis vaccine (product) Tdap Booster [facility] Start: 1951 COVID-19 Vaccine (#1) COVID-19 Vaccine (#1) [facility] Start: 1945 Screening for malignant neoplasm of colon Colonoscopy [facility] Patient Education Stroke (DC) [facility] Work Phone: Patient referral [facility] Work Phone: [facility] Immunizations Immunization Date Immunization Notes Care Provider Fa efra 03-27-2022 influenza virus vaccine, unspecified formulation Harjeet SAINI [facility] 06-03-2021 SARS-CoV-2 (COVID-19 ) mRNA BNT-162b2 vax Harjeet SAINI [facility] 05-09-2021 pneumococcal polysaccharide vaccine, 23 valent Harjeet YENY [facility] 11-04-2020 COVID-19, mRNA, LNP- S, PF, 30 mcg/0.3 mL dose; Translations: [Pfizer-BioNTech COVID-19 Vaccine] Dustin Christian [facility] Comment on above: Reason for Medicatio n: Prophylaxis 10-13-2020 COVID-19, mRNA, LNP- S, PF, 30 mcg/0.3 mL dose Dustin Gonzales [facility] Comment on above: Reason for Medicatio n: Prophylaxis 04-23-2019 influenza, high dose seasonal, preservative-free Daryl Oliver Other [employer] Other 04-04-2018 influenza, high dose seasonal, preservative-free Daryl Oliver Other [employer] Other 05-01-2017 influenza, high dose seasonal, preservative-free Daryl Oliver Other [employer] Other 03-06-2016 influenza, injectable,quadrivalent , preservative free, pediatric Daryl Oliver Other [employer] Other Payers Date Payer Category Payer Self-pay [id number] 2011 Medicare [id number] 2010 Unknown [id number] 1946 Unknown [id number] 2.16. 840.1.881171.3.579.2.732 1946 Unknown [id number] 2.16.84 0.1.656139.3.579.2.1259 1946 Unknown [id number] 2.16.84 0.1.762167.3.579.2.1259 1946 Unknown [id number] 2.16.840 .1.897541.3.579.2.1259 1946 Unknown [id number] 2.16.840 .1.157503.3.579.2.1259 1946 Unknown [id number] 2.16.840 .1.021868.3.579.2.1259 1946 Unknown [id number] 2.16.840 .1.753793.3.579.2.1259 1946 Unknown [id number] 2.16.840 .1.495290.3.579.2.1259 1946 Unknown [id number] 2.16.840. 1.348400.3.579.2.1259 1946 Unknown [id number] 2.16.8 40.1.630180.3.579.2.727 1946 Unknown [id number] 2.16.8 40.1.339006.3.579.2.727 1946 Unknown [id number] 2.16.8 40.1.370498.3.579.2.727 1946 Unknown [id number] 2.16.8 40.1.298912.3.579.2.727 1946 Unknown [id number] 2.16.8 40.1.448408.3.579.2.727 1946 Unknown [id number] 2.16.8 40.1.954642.3.579.2.727 1946 Unknown [id number] 2.16.8 40.1.997900.3.579.2.727 1946 Unknown [id number] 2.16.8 40.1.834461.3.579.2.727 1946 Unknown [id number] 2.16.8 40.1.366586.3.579.2.727 1946 Unknown [id number] 2.16.8 40.1.156922.3.579.2.727 1946 Unknown [id number] 2.16.8 40.1.303704.3.579.2.727 1946 Unknown [id number] 2.16.8 40.1.277665.3.579.2.727 1946 Unknown [id number] 2.16.8 40.1.504522.3.579.2.727 1946 Unknown [id number] 2.16.8 40.1.341878.3.579.2.727 1946 Unknown [id number] 2.16.8 40.1.470413.3.579.2.727 1946 Unknown [id number] 2.16.8 40.1.420684.3.579.2.727 1946 Unknown [id number] 2.16.8 40.1.608805.3.579.2.727 Unknown [id number] 2.16.8 40.1.616718.3.579.2.531 Social History Date Type Detail Facility Tobacco smoking status NHIS Unknown if ever smoked [facility] Start: 1945 Sex Assigned At Female F [facility] Start: 07-27-2016 End: 09-02-2022 Tobacco smoking status Never smoked tobacco (finding) [facility] Sex Assigned At Female [facility] Tobacco smoking status NHIS Tobacco smoking consumption unknown [facility] Start: 1945 Sex Assigned At Not on file M [facility] Tobacco smoking status Never [facility] Care Medical Equipment Procedure Code Equipment Code Equipment Original Text Equi pment Identifier Dates Goals Date Patient Goal Desired Activity /State Functional Status Date Assessment Result Facility 05-21-2023 Functional Status N/A [facility] 03-02-2023 Functional Status N/A [facility] 01-19-2023 Functional Status N/A [facility] 01-10-2023 Functional Status N/A [facility] 12-31-2022 Functional Status N/A [facility] 12-13-2022 Functional Status N/A [facility] 12-06-2022 Functional Status N/A [facility] 10-26-2022 Functional Status N/A [facility] 09-02-2022 Functional Status N/A [facility] 07-13-2022 Functional status Patient is Pro gressing Toward Baseline [facility] Work Phone: 06-23-2022 Functional Status N/A [facility] 06-23-2022 Functional Status [facility] 06-01-2022 Functional Status N/A [facility] Mental Status Date Assessment Result Facility 07-13-2022 Cognitive function Cognitive Sta tus Patient at Baseline [facility] Work Phone: Clinical Notes 12-10-2021 to 05-21-2023 [...] Treatment for this condition includes: Antibiotic medicine. Ioof-juf-etaukqt medicines to treat discomfort. Drinking enough water [...] Follow these instructions at home: Medicines Take tfhd-ong-odacvpg and prescription medicines only as told by [...] provider. Document Revised: 01/14/2021 Document Reviewed: 01/14/2021 [employer] Patient Education 2022 Organizer. Follow Up Care 01/24/2023 13:42:15 With:Jarrett VELASQUEZ, ZEB Cruz, URO Address: When: Unknown [facility] Lemuel 03-15-2023 Note [id number]#[id number]:127 [facility] 03-14-2023 Note Diagnosis: M46.1, M5 3.3 [...] and agrees to continue currently prescribed/recommended therapies. [facility] Comment on above: Result Comment: Elec [...] Date:05/21/2023 01:15:00 PM Scheduled Provider:Radha Farias MD Location:[facility] Appointment Type:URO New Patient [facility]08-04-2023 Evaluation + Plan noteExtracted from: Title:Pain [...] AM Scheduled Provider:Mirna Bryant PA-C Location:[facility] Appointment Type:Pain Management - Follow Up (FT) [facility]07-26-2023 Evaluation + Plan noteExtracted from: Title:ANES [...] Author: Yong Guevara Jr., DO Date:01/10/23 Plan [place] [employer]hes[employer] (ASA) physical status classification: Class III. Future Appointments Appointment Date:01/19/2023 09:15:00 AM Scheduled Provider:Mirna Bryant PA-C Location:.[facility] Appointment Type:Pain Management - Follow Up (FT) [facility]07-26-2023 Note [id number]:127[facility] 01-10-2023 NoteProcedure: Explantation of a spinal [...] transferred to the recovery room in good condition.[facility] Comment on above:Result Comment: Electronically Signed By: Aparna Gonzales MD.terry\Date and Time Signed: 01/10/23 09:21 [id number] Hospital Discharge instructions Patient Education 12/31/2022 23:40:20 [...] Treatment for this condition includes: Antibiotic medicine. Mbxq-omw-kaafnqb medicines to treat discomfort. Drinking enough water [...] Follow these instructions at home: Medicines Take kwpr-meu-eqvgfzw and prescription medicines only as told by [...] provider. Document Revised: 01/14/2021 Document Reviewed: 01/14/2021 [employer] Patient Education 2022 Organizer. Follow Up Care 12/31/2022 22:33:28 With:Lani Méndez Address: [address] [place] [address] [place] [address]- Business (1) When:Within 3 Day(s) [facility]07-16-2023 Evaluation + Plan noteExtracted from: Title:ED Note Author:Pantera Wise DO Date :12/31/22 Acute UTI (N39.0: Urinary tr act infection, site not specified) Orders: ciprofloxacin, 500 mg = 1 tab(s), Oral, q12hr, X 7 day(s), # 14 tab(s), Refills(s) 0, Pharmacy: [facility], 162, cm, 12/31/22 22:40:00 EDT, Height/Length Dosing, 131, kg, 12/31/22 22:40:00 EDT, Weight Dosing ciprofloxacin, 500 mg = 1 tab(s), Tab, Oral, Once, Stop date 12/31/22 23:18:00 EDT, STAT, Start date 12/31/22 23:18:00 EDT, 12/31/22 23:18:00 EDT phenazopyridine, 100 mg = 1 tab(s), Oral, TID, X 2 day(s), # 6 tab(s), Refills(s) 0, Pharmacy: [facility], 162, cm, 12/31/22 22:40:00 EDT, Height/Length Dosing, 131, kg, 12/31/22 22:40:00 EDT, Weight Dosing phenazopyridine, 100 mg = 1 tab(s), Tab, Oral, Once, Stop date 12/31/22 23:18:00 EDT, STAT, Start date 12/31/22 23:18:00 EDT, 12/31/22 23:18:00 EDT UA With Cult Reflex Urine Culture Future Appointments Appointment Date:01/10/2023 08:00:00 AM Scheduled Provider: Location:[facility] Management Appointment Type:Surgery FT Appointment Date:01/19/2023 09:15:00 AM Scheduled Provider:Mirna Bryant PA-C Location:[facility] Appointment Type:Pain Management - Follow Up (FT) Diagnostic Tests Pending * Urine Culture 12/31/22 [facility]06-28-2023 Evaluation + Plan noteExtracted from: Title:Mauricio Villaseñor PRE Author:Braden Martínez DO Date:12/13/22 Plan [place] [employer] (ASA) physical status classification: Class III. Anesthetic Preoperative Plan: Anesthesia General, and Monitored anethesia care. Future Appointments Appointment Date:01/19/2023 09:15:00 AM Scheduled Provider:Mirna Bryant PA-C Location:FT.[facility] Appointment Type:Pain Management - Follow Up (FT) [facility]05-11-2023 Evaluation + Plan noteExtracted from: Title:Clinical [...] and her home exercises in the interim. [facility]05-09-2023 Evaluation note* Encounter Date Diagnosis Assessment [...] whether neurogenic claudication present (ICD-10 - M48.061) [employer] Other 03-19-2023 NoteHOSPITAL REGULATIONS: All Positive and [...] and was reviewed. REVIEW OF SYSTEMS:Done on [employer] system. PHYSICAL EXAMINATION: General: She is a [...] in the sacroiliac joints. I reviewed an [facility] Prescription Reporting System report on her which [...] patient in total. Kris Awad Dictated: 08/31/2022 [id number] Transcribed: 09/01/2022 cc:Vianey Monsivais [facility] HospitalComment on above:Result Comment: Electronically Signed By: Christian VELASQUEZ, Dustin\.br\Date and Time Signed: 09/03/22 17:02 [id number] Hospital Discharge instructions Patient Education 09/02/2022 12:43:33 [...] 02/14/2005 Document Revised: 12/03/2018 Document Reviewed: 06/05/2017 [employer] Patient Education 2020 Organizer. 09/02/2022 12:43:31 Urinary Tract Infection, Adult Urinary [...] Treatment for this condition includes: Antibiotic medicine. Iuhe-fye-marmkiy medicines to treat discomfort. Drinking enough water [...] Follow these instructions at home: Medicines Take zvkp-rar-resilep and prescription medicines only as told by [...] 03/14/2006 Document Revised: 05/22/2019 Document Reviewed: 12/12/2018 [employer] Patient Education 2020 Organizer. 09/02/2022 12:43:30 BMI for Adults BMI for [...] height. This can be done either in Somali ([place] or metric measurements. Note that charts are available to help you find your BMI quickly and easily without having to do these calculations yourself. To calculate your BMI in Somali ([place] measurements, your health care provider will: [...] medical problems. BMI can be measured using Somali measurements or metric measurements. To interpret your [...] 02/13/2005 Document Revised: 05/17/2018 Document Reviewed: 04/17/2018 [employer] Patient Education 2020 Organizer. Follow Up Care 09/02/2022 11:09:53 With:Lani Méndez DO, FAM Address:Unknown When: Unknown [facility] 03-18-2023 Evaluation + Plan note Diagnostic Tests Pending * Urine Culture 09/02/22 [facility]01-25-2023 Progress note Author Delio Gonzales [facility] July 12, 2022 3:19pm Note Date/Time July 12, 2022 3 :19pm [facility] [address] [place] [address] Physiatry(Rehab) Progress Note Signed Patient: Chacho Edwards MR#: [id number] : 1945 Acct:[id number] Age/Sex: 77 / F Adm Date: 3 Loc: Room: [address] [place] [address] Type: ADM IN Attending Dr: Delio Gonzales MD Copies to: ~ Date of Service: 07/12/2022 Subjective Subjective Narrative: Ms. Edwards is a 77 year old female admitted to [facility] inpatient rehab for functional deficits secondary to [...] unremarkable. CTA notable for origin ofthe right FINANCIAL SERVICES COUNSELOR, no acute abnormality. Unable to obtain the [...] 18:17 07/02/22 17:36 Bisacodyl 10 Mg Supp.Rect ID 06/29/23 18:16 10 mg DAILY PRN Administration [...] 18:17 Docusate Enema 283 Mg/5 Ml Enema ID 06/29/23 18:16 DAILY PRN Constipation Gabapentin 600 [...] AMAN Administration Omeprazole 40 mg 06/30/22 09:00 07/12/22 [...] and proper breathing techniques during functional tasks. JIG GRINDER SET UP OPERATOR to evaluate and treat patient?s cognition, language [...] equipment to enhance the patient's a functional muslim Encourage deep breathing exercises and incentive spirometry RD evaluation Ensure adequate nutrition and hydration Discharge planning. Code(s): I63.9 - Cerebral infarction, unspecified Status: Acute (7) Presence of neurostimulator: Code(s): Z96.82 - Presence of neurostimulator Status: Acute (8) Left hemiplegia: Code(s): G81.94 - Hemiplegia, unspecified affecting left nondominant side Status: Acute Plan This is a 77-year-old female who presents to [facility] inpatient rehab for functional impairment secondary to [...] equipment to enhance the patient's a functional muslim Ensure adequate nutrition and hydration Sleep: Continue trazodone Discharge planning: Home with family tomorrow Plan: I completed a substantive portion of this encounter, the medical decision makingportion of this note in its entirety, including Allied health note review, nursing note review, oracle adf consultant note review, discussion with nursing and case management, and more than 50% of my time was spent on counseling and coordination of care, time spent 20 minutes Patient was personally seen by me, Dr. Gonzales, on the day of encounter, reviewed the history and the relevant portions of the chart, including current orders, allied health and oracle adf consultant notes, labs/imaging and performed gómez elements of exam and I formulated the plan of care and facilitated the medical decision making. Documented By: Delio Gonzales MD 07/12/22 151 Signed By: <Electronically signed by Delio Gonzales MD> 07/12/22 1519 [facility] Work Phone: 1(649) 548-990101-25-2023 Progress note Author Delio Gonzales [facility] July 12, 2022 2:39pm Note Date/Time July 11, 2022 1 2:21pm [facility] [address] [place], [place] [id number] Physiatry(Rehab) Progress Note Signed Patient: Chacho Edwards MR#: [id number] : 1945 Acct:[id number] Age/Sex: 77 / F Adm Date: 3 Loc: 5T Room: 2X0659-5 Type: ADM IN Attending Dr: Delio Gonzales MD Copies to: ~ <Mariposa Martinez APRN - Last Filed: 07/11/22 12:21> Date of Service: 07/11/2022 Subjective <Mariposa Martinez APRN - Last Filed: 07/11/22 12:21> Subjective Narrative: Ms. Edwards is a 77 year old female admitted to [facility] inpatient rehab for functional deficits secondary to [...] unremarkable. CTA notable for origin ofthe right FINANCIAL SERVICES COUNSELOR, no acute abnormality. Unable to obtain the [...] % (Auto) 54.1 Lymph % (Auto) 31.6 [place] % (Auto) 10.0 Eos % (Auto) 3.7 Baso % (Auto) 0.6 Nucleat RBC Rel Count 0.2 Neut # (Auto) 2.6 Lymph # (Auto) 1.5 [place] # (Auto) 0.5 Eos # (Auto) 0.2 [...] MPV Neut % (Auto) Lymph % (Auto) [place] % (Auto) Eos % (Auto) Baso % (Auto) Nucleat RBC Rel Count Neut # (Auto) Lymph # (Auto) [place] # (Auto) Eos # (Auto) Baso # [...] Tablet PO 06/29/23 21:59 50 mg QHS MAAN Administration Atorvastatin Calcium 80 mg 06/29/22 21:00 07/10/22 21:44 Atorvastatin 80 Mg Tablet PO 06/29/23 20:59 80 mg QPM AMAN Administration Bisacodyl 10 mg 06/29/22 18:17 07/02/22 17:36 Bisacodyl 10 Mg Supp.Rect ID 06/29/23 18:16 10 mg DAILY PRN Administration [...] 18:17 Docusate Enema 283 Mg/5 Ml Enema ID 06/29/23 18:16 DAILY PRN Constipation Gabapentin 600 [...] Bottle TOPICAL 06/29/23 21:59 1 applic TID MAAN Administration Omeprazole 40 mg 06/30/22 09:00 07/11/22 [...] and proper breathing techniques during functional tasks. JIG GRINDER SET UP OPERATOR to evaluate and treat patient?s cognition, language [...] equipment to enhance the patient's a functional muslim Encourage deep breathing exercises and incentive spirometry RD evaluation Ensure adequate nutrition and hydration Discharge planning. Code(s): I63.9 - Cerebral infarction, unspecified Status: Acute (7) Presence of neurostimulator: Code(s): Z96.82 - Presence of neurostimulator Status: Acute (8) Left hemiplegia: Code(s): G81.94 - Hemiplegia, unspecified affecting left nondominant side Status: Acute Plan This is a 77-year-old female who presents to [facility] inpatient rehab for functional impairment secondary to [...] equipment to enhance the patient's a functional muslim Ensure adequate nutrition and hydration Sleep: Continue trazodone Discharge planning: Home with family later this week. I spent greater than 15 minutes for services, including zhkz-nb-dafe encounter with the patient, discussion of the case, plan of care, and exam; and aceryis-rd-gciz activities, such as reviewing pertinent oracle adf consultant documentation,recent therapy notes, laboratory and radiology studies, and discussion of case with care team including physician, nursing, case investigator, and therapists. More than 50 % of [...] and proper breathing techniques during functional tasks. JIG GRINDER SET UP OPERATOR to evaluate and treat patient?s cognition, language [...] equipment to enhance the patient's a functional muslim Encourage deep breathing exercises and incentive spirometry RD evaluation Ensure adequate nutrition and hydration Discharge planning. (7) Presence of neurostimulator: (8) Left hemiplegia: Plan: I completed a substantive portion of this encounter, the medical decision makingportion of this note in its entirety, including Allied health note review, nursing note review, oracle adf consultant note review, discussion with nursing and case management, and more than 50% of my time was spent on counseling and coordination of care, time spent 20 minutes Patient was personally seen by me, Dr. Gonzales, on the day of encounter, reviewed the history and the relevant portions of the chart, including current orders, allied health and oracle adf consultant notes, labs/imaging and performed gómez elements of exam and I formulated the plan of care and facilitated the medical decision making. Documented By: Delio Gonzales MD 07/11/22 1214 Signed By: <Electronically signed by Delio Gonzales MD> 07/12/22 3839 <Electronically signed by ISIDRO Martinez> 07/11/22 1221 [facility] Work Phone: 1(502) 849-104501-22-2023 Progress note Author Jossy Jacobs [facility] July 09, 2022 5:41pm Note Date/Time July 09, 2022 5 :41pm [facility] [address] [place] [address] Hospitalist Progress Note Signed Patient: Chacho Edwards MR#: [id number] : 1945 Acct:[id number] Age/Sex: 77 / F Adm Date: 3 Loc: Room: [address] [place] [address] Type: ADM IN Attending Dr: Delio Gonzales [...] 18:17 07/02/22 17:36 Bisacodyl 10 Mg Supp.Rect ID 06/29/23 18:16 10 mg DAILY PRN Administration [...] 18:17 Docusate Enema 283 Mg/5 Ml Enema ID 06/29/23 18:16 DAILY PRN Constipation Gabapentin 600 [...] By: <Electronically signed by YOLA-RIMMA Jacobs> 07/09/22 7181 [facility] Work Phone: 1(521) 775-213701-21-2023 Progress note Author Delio Gonzales [facility] July 07, 2022 10:01pm Note Date/Time July 07, 2022 1 0:01pm [facility] [address] [place] [address] Physiatry(Rehab) Progress Note Signed Patient: Chacho Edwards MR#: [id number] : 1945 Acct:[id number] Age/Sex: 77 / F Adm Date: 3 Loc: 5T Room: 8X6756-1 Type: ADM IN Attending Dr: Delio Gonzales MD Copies to: ~ Date of Service: 07/07/2022 Subjective Subjective Narrative: Ms. Edwards is a 77 year old female admitted to [facility] inpatient rehab for functional deficits secondary to [...] unremarkable. CTA notable for origin ofthe right FINANCIAL SERVICES COUNSELOR, no acute abnormality. Unable to obtain the [...] 18:17 07/02/22 17:36 Bisacodyl 10 Mg Supp.Rect ID 06/29/23 18:16 10 mg DAILY PRN Administration [...] 18:17 Docusate Enema 283 Mg/5 Ml Enema ID 06/29/23 18:16 DAILY PRN Constipation Gabapentin 600 [...] and proper breathing techniques during functional tasks. JIG GRINDER SET UP OPERATOR to evaluate and treat patient?s cognition, language [...] equipment to enhance the patient's a functional muslim Encourage deep breathing exercises and incentive spirometry RD evaluation Ensure adequate nutrition and hydration Discharge planning. Code(s): I63.9 - Cerebral infarction, unspecified Status: Acute (7) Presence of neurostimulator: Code(s): Z96.82 - Presence of neurostimulator Status: Acute (8) Left hemiplegia: Code(s): G81.94 - Hemiplegia, unspecified affecting left nondominant side Status: Acute Plan This is a 77-year-old female who presents to [facility] inpatient rehab for functional impairment secondary to [...] equipment to enhance the patient's a functional muslim Ensure adequate nutrition and hydration Sleep: Continue trazodone Discharge planning: Home with family next week. Plan: I completed a substantive portion of this encounter, the medical decision makingportion of this note in its entirety, including Allied health note review, nursing note review, oracle adf consultant note review, discussion with nursing and case management, and more than 50% of my time was spent on counseling and coordination of care, time spent 22 minutes Patient was personally seen by me, Dr. Gonzales, on the day of encounter, reviewed the history and the relevant portions of the chart, including current orders, allied health and oracle adf consultant notes, labs/imaging and performed gómez elements of exam and I formulated the plan of care and facilitated the medical decision making. Documented By: Delio Gonzales MD 07/07/222158 Signed By: <Electronically signed by Delio Gonzales MD> 07/07/222200 [facility] Work Phone: 1(207) 137-101101-19-2023 Hospital Discharge instructionsAmbulatory Orders* Initiate Home Health Time Frame: 07/06/22, Location: Determined By Patient Additional Instructions -Full Code -Activity: As tolerated, sling PRN for comfort. -Diet: Diabetic, 1800 ADA -Skin Care: Theraworx protect wipes and nystatin powder to left breast three times a day. -Continue to monitor fingerstick blood glucose as you did at home. Your Home Health agency is [facility] ( ). They will usually [...] office to inform them prior to your appointment.[facility] Work Phone: 1(626) 118-238701-18-2023 Progress note Author Delio Gonzales [facility] July 05, 2022 2:38pm Note Date/Time July 04, 2022 1 :20pm [facility] [address] [place] [address] Physiatry(Rehab) Progress Note Signed Patient: Chacho Edwards MR#: [id number] : 1945 Acct:[id number] Age/Sex: 77 / F Adm Date: 3 Loc: Room: [address] [place] [address] Type: ADM IN Attending Dr: Delio Gonzales MD Copies to: ~ <Mariposa Martinez APRN - Last Filed: 07/04/22 13:21> Date of Service: 07/04/2022 Subjective <Mariposa Martinez APRN - Last Filed: 07/04/22 13:21> Subjective Narrative: Ms. Edwards is a 77 year old female admitted to [facility] inpatient rehab for functional deficits secondary to [...] unremarkable. CTA notable for origin ofthe right FINANCIAL SERVICES COUNSELOR, no acute abnormality. Unable to obtain the [...] a 77 year old female admitted to [facility] inpatient rehab for functional deficits secondary to [...] unremarkable. CTA notable for origin ofthe right FINANCIAL SERVICES COUNSELOR, no acute abnormality. Unable to obtain the [...] 18:17 07/02/22 17:36 Bisacodyl 10 Mg Supp.Rect ID 06/29/23 18:16 10 mg DAILY PRN Administration [...] 18:17 Docusate Enema 283 Mg/5 Ml Enema ID 06/29/23 18:16 DAILY PRN Constipation Gabapentin 600 [...] QHS PRN Administration Insomnia Assessment/Plan <Mariposa Martinez, ROADWAY DESIGNER - Last Filed: 07/04/22 13:21> Assessment/Plan (1) [...] and proper breathing techniques during functional tasks. JIG GRINDER SET UP OPERATOR to evaluate and treat patient?s cognition, language [...] equipment to enhance the patient's a functional muslim Encourage deep breathing exercises and incentive spirometry RD evaluation Ensure adequate nutrition and hydration Discharge planning. Code(s): I63.9 - Cerebral infarction, unspecified Status: Acute (7) Presence of neurostimulator: Code(s): Z96.82 - Presence of neurostimulator Status: Acute (8) Left hemiplegia: Code(s): G81.94 - Hemiplegia, unspecified affecting left nondominant side Status: Acute Plan Patient education This is a 77-year-old female who presents to [facility] inpatient rehab for functional impairment secondary to [...] equipment to enhance the patient's a functional muslim Ensure adequate nutrition and hydration Sleep: We will add trazodone Discharge planning: Home with family in 7 to 10 days. I spent greater than 15 minutes for services, including uizw-xp-biee encounter with the patient, discussion of the case, plan of care, and exam; and neppizn-mw-kwka activities, such as reviewing pertinent oracle adf consultant documentation, recent therapy notes, laboratory and radiology studies, and discussion of case with care team including physician, nursing, case investigator, and therapists. More than 50 % of time was spent on patient/family counseling or coordination ofcare. Plan: I completed a substantive portion of this encounter, the medical decision makingportion of this note in its entirety, including Allied health note review, nursing note review, oracle adf consultant note review, discussion with nursing and case management, and more than 50% of my time was spent on counseling and coordination of care, time spent 22 minutes Patient was personally seen by me, Dr. Gonzales, on the day of encounter, reviewed the history and the relevant portions of the chart, including current orders, allied health and oracle adf consultant notes, labs/imaging and performed gómez elements [...] and proper breathing techniques during functional tasks. JIG GRINDER SET UP OPERATOR to evaluate and treat patient?s cognition, language [...] equipment to enhance the patient's a functional muslim Encourage deep breathing exercises and incentive spirometry RD evaluation Ensure adequate nutrition and hydration Discharge planning. (7) Presence of neurostimulator: (8) Left hemiplegia: Plan This is a 77-year-old female who presents to [facility] inpatient rehab for functional impairment secondary to [...] equipment to enhance the patient's a functional muslim Ensure adequate nutrition and hydration Sleep: We will add trazodone Discharge planning: Home with family in a week or 2 I spent greater than 15 minutes for services, including isnf-cg-kgml encounter with the patient, discussion of the case, plan of care, and exam; and sdfzivm-qe-tuvr activities, such as reviewing pertinent oracle adf consultant documentation, recent therapy notes, laboratory and radiology studies, and discussion of case with care team including physician, nursing, case investigator, and therapists. More than 50 % of time was spent on patient/family counseling or coordination ofcare. Documented By: Mariposa Martinez, ISIDRO 07/04/22 1 314 Signed By: <Electronically signed by ISIDRO Martinez> 07/04/22 1321 <Electronically signed by Delio Gonzales MD> 07/05/22 7180 [facility] Work Phone: [phone]) 799-707601-16-2023 Progress note Author Delio Gonzales [facility] July 03, 2022 2:28pm Note Date/Time July 03, 2022 1 2:33pm [facility] [address] [place] [address] Physiatry(Rehab) Progress Note Signed Patient: Chacho Edwards MR#: [id number] : 1945 Acct:[id number] Age/Sex: 77 / F Adm Date: 3 Loc: Room: 1Y9501-9 Type: ADM IN Attending Dr: Delio Gonzales MD Copies to: ~ <Mariposa Martinez APRN - Last Filed: 07/03/22 12:37> Date of Service: 07/03/2022 Subjective <Mariposa Martinez APRN - Last Filed: 07/03/22 12:37> Subjective Narrative: Ms. Edwards is a 77 year old female admitted to [facility] inpatient rehab for functional deficits secondary to [...] unremarkable. CTA notable for origin ofthe right FINANCIAL SERVICES COUNSELOR, no acute abnormality. Unable to obtain the [...] 18:17 07/02/22 17:36 Bisacodyl 10 Mg Supp.Rect ID 06/29/23 18:16 10 mg DAILY PRN Administration [...] 18:17 Docusate Enema 283 Mg/5 Ml Enema ID 06/29/23 18:16 DAILY PRN Constipation Gabapentin 800 [...] Insuln.Pen SUBCUT 06/30/23 08:59 20 units QAM AMNA Administration Insulin Aspart Prota 70%/Aspart 30% 25 [...] QHS PRN Administration Insomnia Assessment/Plan <Mariposa Martinez, ROADWAY DESIGNER - Last Filed: 07/03/22 12:37> Assessment/Plan (1) [...] and proper breathing techniques during functional tasks. JIG GRINDER SET UP OPERATOR to evaluate and treat patient?s cognition, language [...] equipment to enhance the patient's a functional muslim Encourage deep breathing exercises and incentive spirometry RD evaluation Ensure adequate nutrition and hydration Discharge planning. Code(s): I63.9 - Cerebral infarction, unspecified Status: Acute (7) Presence of neurostimulator: Code(s): Z96.82 - Presence of neurostimulator Status: Acute (8) Left hemiplegia: Code(s): G81.94 - Hemiplegia, unspecified affecting left nondominant side Status: Acute Plan Patient education This is a 77-year-old female who presents to [facility] inpatient rehab for functional impairment secondary to [...] equipment to enhance the patient's a functional muslim Ensure adequate nutrition and hydration Sleep: We will add trazodone Discharge planning: Home with family in 7 to 10 days. I spent greater than 15 minutes for services, including jpvs-gj-hoyf encounter with the patient, discussion of the case, plan of care, and exam; and elwnmpn-bw-vwap activities, such as reviewing pertinent oracle adf consultant documentation, recent therapy notes, laboratory and radiology studies, and discussion of case with care team including physician, nursing, case investigator, and therapists. More than 50 % of [...] and proper breathing techniques during functional tasks. JIG GRINDER SET UP OPERATOR to evaluate and treat patient?s cognition, language [...] equipment to enhance the patient's a functional muslim Encourage deep breathing exercises and incentive spirometry RD evaluation Ensure adequate nutrition and hydration Discharge planning. (7) Presence of neurostimulator: (8) Left hemiplegia: Plan: I completed a substantive portion of this encounter, the medical decision makingportion of this note in its entirety, including Allied health note review, nursing note review, oracle adf consultant note review, discussion with nursing and case management, and more than 50% of my time was spent on counseling and coordination of care, time spent 22 minutes Patient was personally seen by me, Dr. Gonzales, on the day of encounter, reviewed the history and the relevant portions of the chart, including current orders, allied health and oracle adf consultant notes, labs/imaging and performed gómez elements of exam and I formulated the plan of care and facilitated the medical decision making. Documented By: Mariposa Martinez APRN 07/03/22 1 224 Signed By: <Electronically signed by ISIDRO Martinez> 07/03/22 1237 <Electronically signed by Delio Gonzales MD> 07/03/22 0799 [facility] Work Phone: 1([phone]) 392-686601-14-2023 Consult note Author Bhavesh Gonzalez [facility] July 01, 2022 7:41am Note Date/Time June 30, 2022 5 :00pm [facility] [address] [place] [address] Hospitalist Consult Note Signed Patient: Chacho Edwards MR#: [id number] : 1945 Acct:[id number] Age/Sex: 77 / F Adm Date: 3 Loc: Room: 8T7386-3 Type: ADM IN Attending Dr: Delio Gonzales [...] negative unless noted in the HPI below [facility] Attestation Statement: The following information was validated [...] mg 06/29/22 18:17 Bisacodyl 10 Mg Supp.Rect ID 06/29/23 18:16 DAILY PRN Constipation Dextrose 0 [...] 18:17 Docusate Enema 283 Mg/5 Ml Enema ID 06/29/23 18:16 DAILY PRN Constipation Gabapentin 800 mg 06/29/22 21:00 06/30/22 08:37 Gabapentin 800 Mg Tablet PO 06/29/23 20:59 800 mg BID AMAN Administration Glucose 0 gm 06/29/22 18:30 Dextrose 40% Gel 15 Gm Tube PO 06/29/23 18:29 PRN PRN Hypoglycemia Heparin Sodium (Porcine) 5,000 unit 06/30/22 21:00 Heparin 5,000 Unit/Ml Vial SUBCUT 06/30/23 20:59 Q12HR [facility] Insulin Aspart Prota 70%/Aspart 30% 20 units 06/30/22 09:00 06/30/22 08:38 Insulin Aspart Protamin/Aspart 300 Units/3 Ml Insuln.Pen SUBCUT 06/30/23 08:59 20 units QAM [facility] Administration Insulin Aspart Prota 70%/Aspart 30% 25 [...] EXTREM-no edema BLE calves nontender SKIN-scattered bruising FA-jokc-gcuoo weakness NEURO- A&Ox3 speech clear and tongue [...] % (Auto) 66.3, Lymph % (Auto) 20.2, [place] % (Auto) 10.3, Eos % (Auto) 2.7, Baso % (Auto) 0.5, Nucleat RBC Rel Count 0.2, Neut # (Auto) 4.7, Lymph # (Auto) 1.4, [place] # (Auto) 0.7, Eos # (Auto) 0.2, [...] Obesity Documented By: Kat Barry APRN 06/30/22 5353 Signed By: <Electronically signed by ISIDRO Barry> 06/30/22 1722 <Electronically signed by Bhavesh Gonzalez MD> 07/01/22 0741 [facility] Work Phone: 1(512) 952-884901-13-2023 History and physical note Author Delio Gonzales [facility] June 30, 2022 3:11pm Note Date/Time June 30, 2022 1 1:48am [facility] [address] [place] [address] Physiatry (Rehab) H&P Signed Patient: Chacho Edwards MR#: [id number] : 1945 Acct:[id number] Age/Sex: 77 / F Adm Date: 3 Loc: Room: [address] [place] [address] Type: ADM IN Attending Dr: Delio Gonzales MD Copies to: ISIDRO Hu MD Joseph Riley, MD~ <Mariposa Martinez APRN - Last Filed: 06/30/22 12:48> Date of Service: 06/30/2022 HPI <Mariposa Martinez APRN - Last Filed: 06/30/22 12:48> The patient was seen and examined on: 06/30/22 History of Present Illness: Ms. Edwards is a 77 year old female admitted to [facility] inpatient rehab for functional deficits secondary to [...] unremarkable. CTA notable for origin ofthe right FINANCIAL SERVICES COUNSELOR, no acute abnormality. Unable to obtain the [...] Bisacodyl (Bisacodyl 10 Mg Supp.Rect) 10 mg ID DAILY PRN PRN Reason: Constipation Stop: 06/29/23 [...] Enema 283 Mg/5 Ml Enema) 283 mg ID DAILY PRN PRN Reason: Constipation Stop: 06/29/23 18:16 Gabapentin (Gabapentin 800 Mg Tablet) 800 mg PO BID [facility] Stop: 06/29/23 20:59 Last Admin: 06/30/22 08:37 Dose: 800 mg Glucose (Dextrose 40% Gel 15 Gm Tube) 0 gm PO PRN PRN PRN Reason: Hypoglycemia Stop: 06/29/23 18:29 Heparin Sodium (Porcine) (Heparin 5,000 Unit/Ml Vial) 5,000 unit SUBCUT Q12HR [facility] Stop: 06/30/23 20:59 Insulin Aspart Prota 70%/Aspart 30% (Insulin Aspart Protamin/Aspart 300 Units/3 Ml Insuln.Pen) 20 units SUBCUT QAM [facility] Stop: 06/30/23 08:59 Last Admin: 06/30/22 08:38 Dose: 20 units Insulin Aspart Prota 70%/Aspart 30% (Insulin Aspart Protamin/Aspart 300 Units/3 Ml Insuln.Pen) 25 units SUBCUT DAILY.5P [facility] Stop: 06/29/23 18:47 Last Admin: 06/29/22 22:03 Dose: Not Given Lactulose (Lactulose 20 Gm/30 Ml Udc) 30 gm PO DAILY PRN PRN Reason: Constipation Stop: 06/29/23 18:16 Levetiracetam (Levetiracetam 250 Mg Tablet) 750 mg PO BID [facility] Stop: 06/29/23 20:59 Last Admin: 06/30/22 08:37 Dose: 750 mg Liraglutide (Liraglutide 18 Mg/3 Ml Pen.Injctr) 1.8 mg SUBCUT DAILY [facility] Stop: 06/30/23 08:59 Last Admin: 06/30/22 08:37 Dose: 1.8 mg Lisinopril (Lisinopril 20 Mg Tablet) 20 mg PO DAILY [facility] Stop: 06/30/23 08:59 Last Admin: 06/30/22 08:37 Dose: 20 mg Nystatin (Nystatin 100,000 Unit/Gram Powder 15 Gm Bottle) 1 applic TOPICAL TID [facility] Stop: 06/29/23 21:59 Last Admin: 06/30/22 08:38 [...] % (Auto) 66.3 Lymph % (Auto) 20.2 [place] % (Auto) 10.3 Eos % (Auto) 2.7 Baso % (Auto) 0.5 Nucleat RBC Rel Count 0.2 Neut # (Auto) 4.7 Lymph # (Auto) 1.4 [place] # (Auto) 0.7 Eos # (Auto) 0.2 [...] 2 weeks Expected Discharge Destination: Home Rehabilitation [facility]: 01.1 Primary Diagnosis: Stroke with left hemiplegia To have patient become more independent and to return home. Medical/ Functional Prognosis: Good Anticipated Functional Outcomes/Goals and Interventions: 1.Therapy Functional Outcome/Goal: Anticipate independent for bed mobility Anticipated interventions: Physician management, PT, OT, JIG GRINDER SET UP OPERATOR, , Dietitian, RehabNursing, Case management 2. Therapy Functional Outcome/Goal: Anticipate independent for transfer Anticipated interventions: Physician management, PT, OT, JIG GRINDER SET UP OPERATOR, Case management, Dietitian, Rehab Nursing 3. Therapy Functional Outcome/Goal: Anticipate independent for ambulation Anticipated interventions: Physician management, PT, OT, JIG GRINDER SET UP OPERATOR Case management, Dietitian, Rehab Nursing 4.Therapy Functional Outcome/Goal: Anticipate independent for self-care Anticipated interventions: Physician management, PT, OT, JIG GRINDER SET UP OPERATOR, Case management, Dietitian, Rehab Nursing 5.Therapy Functional Outcome/Goal: Anticipate independent for functional communication swallowing Anticipated interventions: Physician management, PT, OT, JIG GRINDER SET UP OPERATOR, Case management, Dietitian, Rehab Nursing Required Therapy [...] additional therapy on as needed basis. Comments: JIG GRINDER SET UP OPERATOR to evaluate and treat patient?s cognition, language and communication skills, assess swallow function. Other: Dietitian, Rehab nursing, Wound, P&O, Neuropsychology as needed RATIONALE FOR IRF ADMISSION: Patient has both medical and functional complexities that require 24 hour daily monitoring and intervention from Biodiesel Processing Technician as well as other consulting physicians including internal medicine as well as 24 hour daily mva reactor operator nursing - for medical safe / optimal management. Patient requires interdisciplinary therapy team rehabilitation care including OT, PT, JIG GRINDER SET UP OPERATOR, SW, Psychology, Rehab Nursing, requires and can [...] is a 77-year-old female who presents to [facility] inpatient rehab for functional impairment secondary to [...] equipment to enhance the patient's a functional muslim Ensure adequate nutrition and hydration Sleep: We will add trazodone Discharge planning: Home with family in 7 to 10 days. I spent greater than 35 minutes for services, including ulrw-es-mmwa encounter with the patient, discussion of the case, plan of care, and exam; and mbtxrxy-xn-ixzh activities, such as reviewing pertinent oracle adf consultant documentation, recent therapy notes, laboratory and radiology studies, and discussion of case with care team including physician, nursing, case investigator, and therapists. More than 50 % of [...] and proper breathing techniques during functional tasks. JIG GRINDER SET UP OPERATOR to evaluate and treat patient?s cognition, language [...] equipment to enhance the patient's a functional muslim Encourage deep breathing exercises and incentive spirometry RD evaluation Ensure adequate nutrition and hydration Discharge planning. (7) Presence of neurostimulator: (8) Left hemiplegia: Plan: I completed a substantive portion of this encounter, the medical decision makingportion of this note in its entirety, including Allied health note review, nursing note review, oracle adf consultant note review, discussion with nursing and case management, and more than 50% of my time was spent on counseling and coordination of care, time spent 45 minutes Patient was personally seen by me, Dr. Gonzales, on the day of encounter, reviewed the history and the relevant portions of the chart, including current orders, allied health and oracle adf consultant notes, labs/imaging and performed gómez elements of exam and I formulated the plan of care and facilitated the medical decision making. Documented By: Delio Gonzales MD 06/30/22 1146 Signed By: <Electronically signed by Delio Gonzales MD> 06/30/22 1511 <Electronically signed by ISIDRO Martinez> 06/30/22 1248 [facility] Work Phone: [phone]) 381-683701-10-2023 Evaluation + Plan noteExtracted from: Title:Discharge Note Author:Ammon VELASQUEZ, Miladis Castro ate:06/27/22 Stable Discharge To, Anticipated II - [facility] Unit Discharged to - Home independently Prescriptions [...] Information Dr. Virk NEURO 07/26/2022 02:10 PM [place], [place] [phone] Additional Instructions: Lani Méndez 06/29/2022 05:00 PM [facility] [place] [place] [address]- Business (1) Additional Instructions: Core Measures: Stroke (Cerebrovascular Accident) [facility], (Custom) Core Measures Transient Ischemic Attack (TIA) [facility] (Custom) Extracted from: Title:APSO Note- Neurology Author:Ramona WILSON, Braulio Foy Date:06/27/22 Reason for consult: numerous acute-onset neurological deficits, onset 06/23/22 ASSESSMENT: 1. 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 Potential vascular territory right MCA and FINANCIAL SERVICES COUNSELOR - she does have a right FINANCIAL SERVICES COUNSELOR. There are no overt or obvious developing [...] brain with and without contrast - her [employer] SC-1232 spinal stimulator is MR-conditional. No [...] field testing and is cleared by an director of brand marketing. Extracted from: Title:APSO Note-neurology Author:Candida WILSON, Franco rodriguez Date:06/26/22 Reason for consult: numerous acute-onset neurological deficits, onset 06/23/22 ASSESSMENT: 1. 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 Potential vascular territory right MCA and FINANCIAL SERVICES COUNSELOR - she does have a right FINANCIAL SERVICES COUNSELOR. Interval CT from day of onset to [...] brain with and without contrast - her [employer] SC-1232 spinal stimulator is MR-conditional 5. Start [...] reviewed Follow-up with neurology as outpatient Ordered: [facility] Hospital Care/Day High 35 Minutes 36313 2. Hand weakness (R29.898: Other symptoms and signs involving the musculoskeletal system) Improved Continue with PT OT Ordered: atorvastatin, 80 mg = 2 tab(s), Tab, Oral, Bedtime, Routine, Start date 06/24/22 21:00:00 EST, 06/24/22 8:36:00 EST [facility] Hospital Care/Day High 35 Minutes 08734 3. T2DM (type 2 diabetes mellitus) (E11.9: Type 2 diabetes mellitus without complications) Accu-Chek with sliding scale insulin only Hemoglobin A1c is 6 Ordered: [facility] Hospital Care/Day High 35 Minutes 55115 4. UTI (urinary tract infection) (N39.0: Urinary [...] made to ensure accuracy, however, inadvertently computerized board certified arts therapist mistakes may be present. Dr. Vivek Wheat Hospitalist at [facility] Extracted from: Title:APSO Note-neurology Author:Candida WILSON Franco [...] Ordered: Initial Hospital Care/Day High 70 Minutes 23777 2. Hand weakness (R29.898: Other symptoms and signs involving the musculoskeletal system) Improved Continue with PT OT Management as above Ordered: atorvastatin, 80 mg = 2 tab(s), Tab, Oral, Bedtime, Routine, Start date 06/24/22 21:00:00 EST, 06/24/22 8:36:00 EST Initial Hospital Care/Day High 70 Minutes 57430 3. T2DM (type 2 diabetes mellitus) (E11.9: Type 2 diabetes mellitus without complications) Accu-Chek with sliding scale insulin Ordered: insulin lispro, 0-10 Units, Injection-Insulin, SubCutaneous, QIDACHS, Routine, Start date 06/23/22 11:30:00 EST Diabetic/Calorie Control Diet Initial Hospital Care/Day High 70 Minutes 72862 Routine Capillary Glucose POC 4. UTI (urinary [...] made to ensure accuracy, however, inadvertently computerized board certified arts therapist mistakes may be present. Dr. Vivek Wheat Hospitalist at [facility] Extracted from: Title:APSO Note-neurology Author:Candida WILSON Franco [...] made to ensure accuracy, however, inadvertently computerized board certified arts therapist mistakes may be present. Dr. Vivek Wheat Hospitalist at [facility] Extracted from: Title:ED Note Author:Jung Esparza DO Date: Arm paresthesia, left (R20.2 : Paresthesia of skin) Hand weakness (R29.898: Other symptoms and signs involving the musculoskeletal system) Orders: Automated Diff Basic Metabolic Panel CBC w/ Auto Diff [place] Stroke Scale Communication Order Physician to Nursing [...] AM Scheduled Provider:Dustin Gonzales MD Location:.[facility] [place] Appointment Type:Pain Management - Follow Up (FT) [facility]01-10-2023 Hospital Discharge instructions Patient Education 06/26/2022 23:58:30 Core Measures: Stroke (Cerebrovascular Accident) [facility], (Custom) Stroke (Cerebrovascular Accident) A stroke is [...] factors for stroke, work with your health senior care specialist to control them. High Blood Pressure: High [...] Please call [place] Smoking Cessation Program at [phone] ([facility]), or [phone], ext. [phone] Diabetes: Work with your healthcare professional to [...] cholesterol diet, you can call our [place] us administrative law judge at [phone] Ext. [phone]. The goal for total cholesterol is less [...] your risk of stroke with your health senior care specialist. TREATMENT TIME IS OF THE ESSENCE! Medications [...] Measures will be takento prevent short and senior living complications, including aspiration pneumonia, blood clots in [...] for more information on strokes, log onto www.[email or web address].com or www.strokeassociation.org or call the [place] [employer] at [phone]- [phone]. Revised 06/201806/26/2022 23:58:30 Core Measures Transient Ischemic Attack (TIA) [facility] (Custom) Transient Ischemic Attack You have had [...] factors for stroke, work with your health senior care specialist to control them. Risk Factors: High Blood [...] Please call [place] Smoking Cessation Program at [phone] ([facility]), or [phone], ext. [phone] Diabetes: Work with your healthcare professional to keep your blood sugar under control. Check yourblood sugar and take the results to your next doctor's visit. Take your medications as directed. Eating a healthy diet and exercising will also help keep your diabetes under control. For information on [employer]' Diabetic Support Group please call, . Carotid [...] cholesterol diet, you can call our [place] us administrative law judge at [phone] Ext [phone]. The goal for total cholesterol is less [...] your risk of stroke with your health senior care specialist. If this is your first ischemic attack, [...] for more information on strokes, log onto www.[email or web address] or www.strokeassociation.org or call the [place] [employer] at . Revised 06/2018 Follow Up Care 06/23/2022 07:09:56 With:Pain Clinic: [facility] [phone] Address:Unknown When: Unknown Comments:Pain clinic With:Dr. Bennett EASLEY Address: [place], [place] [phone] When:07/26/2022 14:10:00 With:Lani Méndez Address: [address] [place] [address] Business (1) When:06/29/2022 17:00:00 [facility]06-25-2022 History of Present illness Narrative* Jasbir Jay MD - 12/10/2021 1:07 AM EDT Images from the original note were not included. EMERGENCY TRIAGE, TREAT AND TRANSPORT (ET3) DOCUMENTATION OF TELEHEALTH VISIT Date / Time: 12/10/2021 / 1245AM Name: Chacho Edwards : 1945 SSN: (Not on file) EMS Agency: [facility] [x] Verbal consent obtained [x] [...] note No data available for this section [facility] Future Appointments Appointment [...] Scheduled Provider: Location:.OCCUPATIONAL Appointment Type:OT [facility] Future Appointments Appointment Date:08/31/2022 11:00:00 AM Scheduled Provider:Dustin Gonzales MD Location:FT.[facility] [place] Appointment Type:Pain Management - Follow Up (FT[facility] Future Appointments Appointment Date:06/29/2022 04:00:00 PM Scheduled Provider: Location:.MRI Appointment Type:MRI Brain (FT) Appointment Date:08/31/2022 11:00:00 AM Scheduled Provider:Dustin Gonzales MD Location:FT.[facility] [place] Appointment Type:Pain Management - Follow Up (FT) Future Scheduled Tests Radiology* MRI Brain w/o Contrast 06/29/22 [facility] Extended [facility] Evaluation + Plan note Future Appointments Appointment Date:12/13/2022 08:00:00 AM Scheduled Provider: Location:[facility] Pain Management Appointment Type:Surgery FT Appointment Date:12/20/2022 11:00:00 AM Scheduled Provider:Dustin Gonzales MD Location:FT.[facility] [place] Appointment Type:Pain Management - Follow Up (FT) [facility] Future Appointments Appointment Date:01/10/2023 08:00:00 AM Scheduled Provider: Location:[facility] Appointment Type:Surgery FT Appointment Date:01/19/2023 09:15:00 AM Scheduled Provider:Mirna Bryant PA-C Location:[facility] Appointment Type:Pain Management - Follow Up (FT) [facility] Future Appointments Appointment Date:08/06/2023 01:00:00 PM Scheduled Provider:Radha Farias MD Location:[facility] Appointment Type:URO Office Visit [facility] Evaluation + Plan note Future Appointments Appointment Date:08/06/2023 01:15:00 PM Scheduled Provider:Radha Farias MD Location:[facility]ment Type[facility] Diagnosis Fall, initial encounter- Primary Contusion of left wrist, initial [facility] Diagnosis Onset Date Resolution Status CVA (cerebral vascular accident) acute Diabetes acute Hyperlipidemia acute Hypertension acute Impaired mobility and activities of daily living acute Left hemiplegia acute Obesity, morbid, BMI 40.0-49.9 acute Presence of neurostimulator acute [facility] Work Phone: History general Narrative - Reported* [...] Hospitalization History see surgical history Hospitalization History [facility]- UTI 12/2016 [employer] Other Hospital Discharge instructions No data available for this section [facility] No data available for this section [facility] Advance Directives No Advanced Directives Records [...] section and content) DATE CREATED AUTHOR 05/24/2021 [facility] DATE CREATED AUTHOR AUTHOR'S ORGANIZ ATION 05/28/2021 [facility] DATE CREATED AUTHOR AUTHOR'S ORGANIZ ATION 12/13/2021 [facility] [employer] [facility] DATE CREATED AUTHOR AUTHOR'S ORGANIZ ATION 08/30/2022 [facility] DATE CREATED AUTHOR AUTHOR'S ORGANIZ ATION 08/04/2023 [facility] Special[facility] DATE CREATED AUTHOR AUTHOR'S ORGANIZ ATION 08/08/2023 [facility] Reason for Visit (unrecogniz ed section [...] MD Other Provider Active Hilary Morales , ROADWAY DESIGNER Other Provider Active Helene Garcia , DO [...] MD Other Provider Active Sophie Ruelas , SACK REPAIRER-C Other Provider Active Wilfrid Huber MD Other Provider Active Caleb Roberts MD Other Provider Active Thiago Monteiro MD Other Provider Active Jillian Edwards , DO Other Provider Active Andrew Lira , DO Other Provider Active Jose David Bowens , DO Other Provider Active Kat Barry , ROADWAY DESIGNER Other Provider Active Timothy Mercado , DO [...] BE BASED ON THE PRIMARY CLINICAL RECORDS. [employer] [facility]. provides no warranty or guarantee of the accuracy or completeness of information in this document.
== END 2023-08-30 10:47 | disposition home or self-care (01) ==
LOC: VC 10:46
PROVIDERS: PCP Radiology Diagnostic Radiology; Visit Provider Radiology Diagnostic Radiology
DX: I80.02 Phlebitis and thrombophlebitis of superficial vessels of left lower extremity (principal)
CPT/HCPCS: 93971; G0463

== ENCOUNTER 2023-09-07 10:17 | Outpatient (OUT) | payer MEDICARE, SELFPAY ==
--- NOTE | 2023-09-07 10:18 | VEIN_ITS ---
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 Informed written consent was obtained. Naomi Beckham RN and Tracy Mei RDMS, RVT assisted. Time out procedure was performed. The right lower extremity was prepared and draped in the usual sterile fashion to allow knee flexion in the sterile field. Duplex ultrasound probe was draped in a sterile cover, sterile transmission gel was used. Venous mapping was performed with the areas of dilation and large tributaries marked. The total length was 58 cm from the entry 3 cm above the ankle to 3 cm below the Saphenofemoral junction. The diameter of the right great saphenous vein ranged from 10.2 mm. A 30 gauge needle and 1% buffered lidocaine was used to anesthetize the entry site. A 4 mm incision was made with a scalpel and the saphenous vein was entered percutaneously under direct ultrasound guidance with a micropuncture set, a single stick was successful in gaining access. A micro-guide wire was inserted and the needle removed. A micro-set including a dilator was inserted over the microwire and the needle and dilator were removed. A guide wire was inserted through the micro-set and guided through the saphenous vein to the saphenofemoral junction. The dilator was removed and an introducer sheath was inserted over the wire until the end of the sheath entered the saphenofemoral junction. The dilator and wire were removed and the 600 micron fiber was introduced and placed and positioned so that it extended beyond the sheath and was 3 cm distal to the saphenofemoral or saphenopopliteal junction. Final position of the fiber was determined by ultrasound guidance and duplex imaging. Tumescent anesthetic was delivered by ultrasound guidance. 450 cc of fluid was delivered along the entire course of the saphenous vein. The solution consisted of 1000 cc of normal saline with 40 mL of 1% lidocaine and 20 mL of sodium bicarbonate. A final positioning check was made. The energy source was turned on by means of the foot pedal and the fiber and sheath were withdrawn. The total number of Joules delivered was 2771. The laser was active for 346 seconds under continuous pulse, average laser use of 8 J. Laser start time: 11:07 AM Laser stop time: 11:14 AM Date: 09/07/2023. A duplex ultrasound revealed compressibility and flow at the saphenofemoral junction immediately after the procedure. Hemostasis at the access site was achieved. The skin incision of the saphenous vein was closed with a 4 x 4. A compression stocking was applied. Postop instructions were given. A follow up appointment was recommended and scheduled. The patient tolerated the procedure well. Electronically authenticated by: СВЕТЛАНА RODRIGUEZ Date: 09/07/2023 11:52
--- OUTSIDE RECORDS SUMMARY | 2023-09-07 10:31 | XMS_ITS | CCD ---
Author Organization [facility] Care Team Providers Care Peoplesoft Consultant Name Role Phone Lani Méndez Primary Care [...] Attending Provider STEVE Nicolas Other Provider Unavailable Camryn RN Katrin Other Provider Unavailable STEVE Dubon Other Provider Unavailable STEVE Craig Other Provider Unavailable STEVE Jeong Other Provider Unavailable STEVE Bruno Other Provider Unavailable MD Amador Caldwell Other Provider Dials, TURPENTINE FARMER Hilary Cobos Other Provider DO Helene Garcia Other Provider MD Rosales Cavanaugh Other Provider DO Damian Lugo Other Provider MD Maxime Palmer Other Provider MD Ashley Uribe Other Provider YOLA Jacobs-RIMMA Fenton Other Provider MD Ester Gonzales Other Provider MD Gal Tovar Other Provider MD Bhavesh Gonzalez Other Provider MD Sherice Vera Other Provider DO Aldo Hughes Other Provider [phone] MD Yoselin Valencia Other Provider MD Asad Taylor Other Provider BRAULIO Ruelas Other Provider MD Wilfrid Huber Other Provider MD Caleb Roberts Other Provider MD Thiago Monteiro Other Provider DO Jillian Edwards Other Provider DO Andrew Lira Other Provider DO Jose David Bowens Other Provider ISIDRO Barry Other Provider DO Timothy Mercado Other Provider [phone] MD Fernando Rowe Other Provider [phone] ISIDRO Byers Other Provider [phone] STEVE Phipps Other Provider Unavailable Delio Gonzales Admitting Unavailable Delio Gonzales Attending Unavailable Jonelle Nicolas Consulting Unavailable AllLani gacría Primary Care Unavailable Camryn, Katrin Consulting Unavailable Surekha Dubon Consulting Unavailable Denslow, Frances Consulting Unavailable Salmons, Judy Consulting Unavailable Kiana, Jerilyn Consulting Unavailable Paulette, Amador K Consulting Unavailable Dials, Hilary M Consulting Unavailable Steve Garciar Consulting Unavailable Mao, Rosales Consulting Unavailable Damian Lugo Consulting UnavailMaxime Morfin Consulting Unavailable Ashley Uribe Consulting Unavailable Jossy Jacobs Consulting Unavailable Ester Gonzales Consulting Unavailable Guy, Gal Consulting Unavailable Bhavesh Gonzalez Consulting Unavailable Sherice Vera Consulting Unavailable Aldo Hughes Consulting Unavailable Yoselin Valencia Consulting Unavailable Asad Taylor Consulting Unavailable Sophie Ruelas Consulting Unavailable DoWilfrid sánchez E Consulting Unavailab Caleb Arellano Consulting Unavailable Thiago Monteiro Consulting Unavailable Jillian Edwards Consulting Unavailable Andrew Lira Consulting Unavailable Jose David Bowens Consulting Unavailable ObKat escobedo Consulting Unavailable Timothy Mercado Consulting Unavailable Daromar, Obaybrenda Cobos Consulting Unavailable Michelle Byers Consulting Unavailable Eunice Phipps Consulting Unavailable Daryl Oliver Unavailable DOLJIAN, JANA R Attending Unavailable LANI MÉNDEZ Attending Unavailable PETTY PATRICK Referring Unavailable LANI MÉNDEZ Attending Unavailable PETTY PATRICK Attending Unavailable CYNDI MORALES Attending Unavailab MD Dustin Larose Admitting Unavailable AllLani garcía Referring Unavailable Dustin Gonzales Attending Unavailable Lani Méndez Referring Unavailable Dustin Gonzales Admitting Unavailable Dustin Gonzales Attending Unavailable MD Dustin Gonzales Admitting Unavailable Dustin Gonzales Referring Unavailable Dustin Gonzales Attending Unavailable Mirna Bryant Attending Unavailable Lani Méndez Referring Unavailable CISCO Bryant Admitting Unavailabl MD Dustin Craig Admitting Unavailable Lani Méndez Referring Unavailable Dustin Gonzales Attending Unavailable Doljian, Jana R Attending Unavailable Gretel Jana R Referring Unavailable MD Dustin Gonzales Admitting Unavailable Dustin Gonzales Attending Unavailable Dustin Gonzales Referring Unavailable Verónica Argueta Admitting Unavailable OrVerónica painting Attending Unavailable Esteban Francois Attending Unavailable Esteban Francois Referring Unavailable DO Esteban Francois Admitting Unavailabl Dustin Craig Attending Unavailable Dustin Gonzales Admitting Unavailable Akkina, Shawn Admitting Unavailable Akkina, Shawn Attending Unavailable Akkina, Shawn Admitting Unavailable Akkina, Shawn Attending Unavailable Pantera Wise Attending Unavailable Verónica Argueta Attending Unavailable Lani Méndez Referring Unavailable Lue, Radha M. Attending Unavailable Radha Farias Attending Unavailable MD Dustin Gonzales Admitting Unavailable Lani Méndez Referring Unavailable Dustin Gonzales Attending Unavailable Unavailable Unavailable Unavailable Allergies Allergy Classification Reported Allergen(s) Allergy Type Date of Onset Reaction(s) Facility (12 sources) Ciprofloxacin; Translations: [ciprofloxacin] Drug Allergy Nausea and vomiting [facility] (20 sources) Clarithromycin; Translations: [clarithromycin] Drug Allergy 06-29-19 itching, Unknown Reaction, Unknown [facility] (20 sources) Metoclopramide; Translations: [metoclopramide] Drug Allergy 06-29-19 Itching, Swelling, Unknown Reaction [facility] Comment on above: confusion (20 sources) pregabalin; Translations: [pregabalin] Drug Allergy 06-29-19 swelling [facility] (20 sources) Sulfamethoxazole / Trimethoprim; Translations: [sulfamethoxazole-t rimethoprim] Drug Allergy edema, dizziness [facility] (20 sources) Sulfonamides (Antibiotic); Translations: [sulfa drugs] Drug allergy itching [facility] (2 sources) Sulfamethoxazole; Translations: [sulfamethoxazole] Drug Allergy 06-29-19 Unknown Reaction [facility] (2 sources) Sulfonamides (Antibiotic); Translations: [Sulfa (Sulfonamide Antibiotics)] Allergy to substance 06-29-19 Unknown Reaction [facility] (2 sources) Trimethoprim; Translations: [trimethoprim] Drug Allergy 06-29-19 Unknown Reaction [facility] (1 source) Clarithromycin Drug Allergy 06-29-19 [facility] Repository (1 source) Metoclopramide Drug Allergy 06-29-19 [facility] (1 source) pregabalin Drug Allergy 06-29-19 [facility] (1 source) Sulfonamides (Antibiotic) Propensity to adverse reactions Unknown [facility] Other (1 source) Metoclopramide; Translations: [Reglan] Drug Allergy [facility] Repository Medications Current Medications Medication Drug [...] Status: Ordered take 2 tablets by mo [facility] every six hours acetaminophen 325 mg [...] day(s), # 14 tab(s), Refills(s) 0, Pharmacy: [facility], 162, cm, 09/02/22 12:13:00 EDT, [...] Daily, # 30 tab(s), Refills(s) 0, Pharmacy: [facility], 163, cm, 06/23/22 7:22:00 EST, Height/Length Dosing, 130.4, kg, 06/23/22 7:22:00 EST, Weight Dosing Start Date: 06/27/22 Status: Ordered atenolol 25 mg oral tablet (20 sources) beta-Adrenergic Valerie Start: 07-12-2022 take 50 mg by mouth once daily at bedtime Atenolol Active 50 MG PO Daily at bedtime 60 July 12, 2022 12:00am Start: 07-12-2022 take [...] Daily, # 30 tab(s), Refills(s) 0, Pharmacy: [facility], 163, cm, 06/23/22 7:22:00 EST, Height/Length Dosing, 130.4, kg, 06/23/22 7:22:00 EST, Weight Dosing Start Date: 06/27/22 Status: Ordered bisacodyl 10 mg rectal suppository (1 source) Stimulant Laxative Start: 07-12-2022 Bisacodyl Active 10 MG NV Daily July 12, 2022 12:00am cefpodoxime 100 [...] day(s), # 12 cap(s), Refills(s) 0, Pharmacy: [facility], 162, cm, 01/10/23 7:41:00 EDT, [...] day(s), # 14 tab(s), Refills(s) 0, Pharmacy: [facility], 162, cm, 12/31/22 22:40:00 EDT, Height/Length Dosing, 131, kg, 12/31/22 22:40:00 EDT, Weight Dosing Start Date: 12/31/22 Stop Date: 01/07/23 Status: Ordered diclofenac sodium 0.01 mg/mg topical gel (8 sources) Nonsteroidal Anti-inflammatory Drug Start: 06-01-2022 diclofenac topical 1% gel 1 taylor, Topical, QID for pain, 100 gram, Refill(s) 0, [facility], 163, cm, 06/01/22 14:39:00 EST, [...] 1 mos at bedtime, 2x/week for maintenance, [facility], 163, cm, 05/21/23 13:47:00 EST, [...] day(s), # 360 tab(s), Refills(s) 0, Pharmacy: [facility], 163, cm, 05/21/23 13:47:00 EST, [...] BID, # 60 tab(s), Refills(s) 0, Pharmacy: [facility], 163, cm, 06/23/22 7:22:00 EST, Height/Length Dosing, 130.4, kg, 06/23/22 7:22:00 EST, Weight Dosing Start Date: 06/27/22 Status: Ordered Start: 01-06-2021 End: 05-31-2023 take 2 tablets by mouth twice daily gabapentin 600 mg Tab 1,200 mg = 2 tab(s), Oral, BID, X 90 day(s), # 360 tab(s), Refills(s) 0, Pharmacy: [facility], 162, cm, 03/02/23 11:42:00 EDT, Height/Length [...] Start: 06-27-2022 take 1 tablet by eldon twice daily Keppra 750 mg oral tablet 750 mg = 1 tab(s), Oral, BID, # 60 tab(s), Refills(s) 0, Pharmacy: [facility], 163, cm, 06/23/22 7:22:00 EST, [...] Daily, # 30 tab(s), Refills(s) 11, Pharmacy: [facility], 163, cm, 05/21/23 13:47:00 EST, [...] 06/21/17 Status: Ordered take 1 capsule by [facility] every twenty-four hours Omeprazole 40 MG 1 tablet Oral Once a day for 90 days Active OneTouch Verio - (1 source) oxyCODONE hydrochloride 5 mg oral tablet (20 sources) Opioid Agonist Start: 01-10-2023 take 1 tablet by mouth every six hours as needed for pain oxyCODONE 5 mg Tab 5 mg = 1 tab(s), Oral, q6hr, PRN for pain, # 20 tab(s), Refills(s) 0, Pharmacy: [facility], 162, cm, 01/10/23 7:41:00 EDT, [...] day(s), # 6 tab(s), Refills(s) 0, Pharmacy: [facility], 162, cm, 12/31/22 22:40:00 EDT, [...] Cerebrovascular accident; Translations: [Cerebral infarction, unspecified] Onset: 06-29-19 23 06-30-2022 Chronic Administrative/social admission (3 sources) Other reduced [...] due to type 2 diabetes mellitus] Onset: 06-28-19 23 02-27-2019 Chronic Diabetes mellitus without complication (8 sources) [...] sources) Long-term current use of insulin; Translations: [senior care (current) use of insulin] Episodic Other and [...] tract infection, site not specified] Onset: 06-23-19 23 Episodic Past or Other Problems Problem Classification [...] Urea nitrogen/Creatinine [Mass ratio] 16 mg/mg Normal 10 - 20 Remisol Chem U Creatinine 129.7 mg/dL Invalid Interpretation Code Remisol Chem U Prot/Creat Ratio 8.80 mg/gm Cr Normal 0.00 - 200.00 mg/gm Cr Remisol Chem Ur Total Protein 11.4 mg/dL Invalid Interpretation Code Remisol Chem Consent for Treatmenton 06-18 Consent for Treatment [id number] .00TIFF Normal [facility] Physician Orderon 07-05-2023 Physician Order [id number]# 1.00TIFF Normal [facility] Renal Panelon 07-05-2023 Albumin [Mass/Vol] 3.8 g/dL Normal 3.3-5.0 [facility] Comment on above: Performed By: #### 1 [id number], [id number] #### [facility] [address] [place] [address] Anion gap [Moles/Vol] 11 mmol/L Normal 6-16 [facility] Comment on above: Performed By: #### 1 [id number], [id number] #### [facility] [address] [place] [address] BUN/Creat Ratio 16 No Units Normal 10-20 [facility] Comment on above: Performed By: #### 1 [id number], [id number] #### [facility] [address] [place] [address] Calcium [Mass/Vol] 8.3 mg/dL Low 8.9-11.1 [facility] Comment on above: Performed By: #### 1 [id number], [id number] #### [facility] [address] [place] [address] Chloride [Moles/Vol] 111 mmol/L Normal 101-111 [facility] Comment on above: Performed By: #### 1 [id number], [id number] #### [facility] [address] [place] [address] CO2 [Moles/Vol] 25 mmol/L Normal 21-31 [facility] Comment on above: Performed By: #### 1 [id number], [id number] #### [facility] [address] [place] [address] Creatinine [Mass/Vol] 1.4 mg/dL High 0.5-1.3 [facility] Comment on above: Performed By: #### 1 [id number], [id number] #### [facility] [address] [place] [address] Glucose [Mass/Vol] 100 mg/dL Normal 55-199 [facility] Comment on above: Performed By: #### 1 [id number], [id number] #### [facility] [address] [place] [address] Phosphate [Mass/Vol] 3.1 mg/dL Normal 1.9-4.6 [facility] Comment on above: Performed By: #### 1 [id number], [id number] #### [facility] [address] [place] [address] Potassium [Moles/Vol] 4.6 mmol/L Normal 3.5-5.3 [facility] Comment on above: Performed By: #### 1 [id number], [id number] #### [facility] [address] [place] [address] Sodium [Moles/Vol] 142 mmol/L Normal 135-145 [facility] Comment on above: Performed By: #### 1 [id number], [id number] #### [facility] [address] [place] [address] Urea nitrogen [Mass/Vol] 23 mg/dL High 5-21 [facility] Comment on above: Performed By: #### 1 [id number], [id number] #### [facility] [address] [place] [address] U Protein/Creat Ratioon 06-18 U Creatinine 129.7 mg/dL Invalid Interpretation Code [facility] Comment on above: Performed By: #### 1 [id number], [id number] #### [facility] [address] [place] [address] U Prot/Creat Ratio 8.80 mg/gm Cr Normal .00-200.00 [facility] Comment on above: Performed By: #### 1 [id number], [id number] #### [facility] [address] [place] [address] Ur Total Protein 11.4 mg/dL Invalid Interpretation Code [facility] Comment on above: Performed By: #### 1 [id number], [id number] #### [facility] [address] [place] [address] URINALYSISOrdered By: Brent Dumont on 07-05-2023 Bilirubin Ql (U) Negative (07/05/23 1:19 PM) Normal Negative [facility] UA Auto SS Clarity (U) Clear (07/05/23 1:19 PM) Normal Clear [facility] UA Auto SS Color (U) Yellow (07/05/23 1:19 PM) Normal Yellow [facility] UA Auto SS Epithelial cells.squamous LM.HPF (Urine sed) [#/Area] 3-4 /HPF Normal 0-2/HPF [facility] UA Aut o SS Glucose Test strip (U) [Mass/Vol] Negative (07/05/23 1:19 PM) Normal Negative [facility] UA Auto SS Hemoglobin Ql (U) Negative (07/05/23 1:19 PM) Normal Negative [facility] UA Auto SS Ketones (U) [Mass/Vol] Negative (07/05/23 1:19 PM) Normal Negative [facility] UA Auto SS [place].plasma/[place]. RBC (Bld) [Mass ratio] 0-3 /HPF Normal 0-3/HPF [facility] UA A uto SS Nitrite Ql (U) Negative (07/05/23 1:19 PM) Normal Negative [facility] Auto SS pH (U) 5.5 *NA* (07/05/23 1:19 PM) Invalid Interpretation Code 5.0 - 9.0 [facility] Auto SS Protein (U) [Mass/Vol] Negative (07/05/23 1:19 PM) Normal Negative [facility] UA Auto SS Specific gravity (U) [Rel density] 1.025 *NA* (07/05/23 1:19 PM) Invalid Interpretation Code 1.005 - 1.030 [facility] UA Auto SS UA Spec Desc Clean Catch (07/05/23 1:19 PM) Normal [facility] UA Auto SS Urobilinogen Qn (U) 0.7379615 {Dasia'U}/dL Normal 0.0 - 1.0 EU/dL [facility] UA Auto SS WBC Auto Ql (U) Negative (07/05/23 1:19 PM) Normal Negative [facility] UA Auto SS WBC LM.HPF (Urine sed) [#/Area] 0-5 /HPF Normal 0-5/HPF [facility] UA Auto SS Urinalysison 07-05-2023 Bilirubin Ql (U) Negative Normal Negative [facility] Comment on above: Performed By: #### 1 [id number], [id number] #### [facility] [address] [place] [address] Clarity (U) CLEAR Normal Clear [facility] Comment on above: Performed By: #### 1 [id number], [id number] #### [facility] [address] [place] [address] Color (U) YELLOW Normal Yellow [facility] Comment on above: Performed By: #### 1 [id number], [id number] #### [facility] [address] [place] [address] Epithelial cells.squamous LM.HPF (Urine sed) [#/Area] 3-4 Normal 0-2 [facility] Comment on above: Performed By: #### 1 [id number], [id number] #### [facility] [address] [place] [address] Glucose Test strip (U) [Mass/Vol] Negative Normal Negative [facility] Comment on above: Performed By: #### 1 [id number], [id number] #### [facility] [address] [place] [address] Hemoglobin Ql (U) Negative Normal Negative [facility] Comment on above: Performed By: #### 1 [id number], [id number] #### [facility] [address] [place] [address] Ketones (U) [Mass/Vol] Negative Normal Negative [facility] Comment on above: Performed By: #### 1 [id number], [id number] #### [facility] [address] [place] [address] [place].plasma/[place]. RBC (Bld) [Mass ratio] 0-3 Normal 0-3 [facility] Comment on above: Performed By: #### 1 [id number], [id number] #### [facility] [address] [place] [address] Nitrite Ql (U) Negative Normal Negative [facility] Comment on above: Performed By: #### 1 [id number], [id number] #### [facility] [address] [place] [address] pH (U) 5.5 [pH] Invalid Interpretation Code 5.0-9.0 [facility] Comment on above: Performed By: #### 1 [id number], [id number] #### [facility] [address] [place] [address] Protein (U) [Mass/Vol] Negative Normal Negative [facility] Comment on above: Performed By: #### 1 [id number], [id number] #### [facility] [address] [place] [address] Specific gravity (U) [Rel density] 1.025 Invalid Interpretation Code 1.005-1.030 [facility] Comment on above: Performed By: #### 1 [id number], [id number] #### [facility] [address] [place] [address] Type of Urine collection method Clean Catch Normal [facility] Comment on above: Performed By: #### 1 [id number], [id number] #### [facility] [address] [place] [address] Urobilinogen Qn (U) 0.2 {Dasia'U}/dL Normal 0.0-1.0 [facility] Comment on above: Performed By: #### 1 [id number], [id number] #### [facility] [address] [place] [address] WBC Auto Ql (U) Negative Normal Negative [facility] Comment on above: Performed By: #### 1 [id number], [id number] #### [facility] [address] [place] [address] WBC LM.HPF (Urine sed) [#/Area] 0-5 Normal 0-5 [facility] Comment on above: Performed By: #### 1 [id number], [id number] #### [facility] [address] [place] [address] eGFRon 07-05-2023 eGFR 39 mL/min/1.73 m2 Low >=59 [facility] Comment on above: Order Comment: Order added by Discern Expert. Performed By: #### 1 [id number], [id number] #### [facility] [address] [place] [address] Formson 05-22-2023 Forms [id number] .00TIFF Normal [facility] Physician Referralon 023 Physician Referral [id number] .00TIFF Normal [facility] Screenson 05-22-2023 Screens [id number] .00TIFF Normal [facility] Ambulatory Visit Summaryon 1 07-22-2022 Ambulatory Visit Summary DARLING EDWARDSMEET Rollins :1945 Visit Date:05/21/2023 Ambulatory Visit Instructions Your Diagnosis Recurrent UTI Urge incontinence Tests Performed Urnls Dip Stick Auto w/o Microscopy POC 61314 Your Care Team Attending Physician - Radha [...] VELASQUEZ, Radha Kirkpatrick Where: [facility] Patient Educationon 05-21-20 Patient Education Obstetrics and [...] this condition includes: ? Antibiotic medicine. ? Ihfi-pee-outenyj medicines to treat discomfort. ? Drinking enough [...] these instructions at home: Medicines ? Take qjfd-mqt-ihgulgg and prescription medicines only as told by [...] Document Revie (more content not included)... Normal [facility] Urology Office/Clinic Noteon 05-21-2023 Urology Office/Clinic [...] coli, 5k mixed skin Pt presented [place] [facility] [place] w/ complaints of burning, bleeding, [...] SEs which (more content not included)... Normal [facility] Comment on above: Result Comment: Elec tronically Signed By: Jarrett VELASQUEZ, Radha Kirkpatrick\.br\Date and Time Signed: 05/21/23 18:53 EST\.br\Electronically Co-Signed By: Jacqueline Saleh\.br\Date and Time Co-Signed: 05/21/23 14:11 EST\.br\Electronically Co-Signed By: Jacqueline Saleh\.br\Date and Time Co-Signed: 05/21/23 14:16 EST\.br\Electronically Co-Signed By: Jacqueline Saleh\.br\Date and Time Co-Signed: 05/21/23 14:28 EST OT - Otheron 04-06-2023 OT - Other [id number]# 1.00TIFF Normal [facility] Consent for Procedure/Surger yon 03-15-2023 Consent for Procedure/Surgery [id number]# 1.00CD:127 Normal [facility] Discharge Instructionson Discharge Instructions [id number]# 1.00CD:127 Normal [facility] IntraOperative Documentson 0 03-15-2023 IntraOperative Documents [id number] 1.00CD:127 Normal [facility] Capillary Glucose POCon 02-17 Glucose [Mass/Vol] 147 mg/dL High 55-99 [facility] Comment on above: Performed By: #### 2 [id number] #### [facility] [address] [place] [address] Consent for Treatmenton 02-17 Consent for Treatment [id number] 1.00CD:127 Normal [facility] Main OR Intraoperative Recor don 03-14-2023 Main OR Intraoperative Record IntraOp Document Type FT[facility] Summary Primary Physician: Esteban Francois DO Finalized Date/Time: 03/14/23 13:59:31 Pt. Name: CHACHO EDWARDS/Sex: 1945 Female Med Rec #: [id number] Physician: Esteban Francois DO Financial #: [id number] Pt. Type: P Room/Bed: / Admit/Disch: 03/14/23 [...] Tracy Foy Role Performed Surgeon - Primary Rag Willow Operator - Primary Scrub - Primary Time In 03/14/23 13:50:00 03/14/23 13:50:00 03/14/23 13:50:00 Time Out 03/14/23 14:00:00 03/14/23 14:00:00 03/14/23 14:00:00 Procedure SACROILIAC JOINT SACROILIAC JOINT SACROILIAC JOINT INJECTION(Bilateral) INJECTION(Bilateral) INJECTION(Bilateral) Comments Last Modified By: Cong WILSON, Linnette Gar RN, Linnette Wang RN 03/14/23 13:59:27 03/14/23 13:59:27 03/14/23 13:59:27 Entry 4 Case Attendee Sophie Hendricks Role Performed Trail Construction Worker Time In 03/14/23 13:50:00 Time Out 03/14/23 [...] Antibiotic No Time Out Linnette Gar RN, Quoc Rosa RN, Alessandro Mcclain DO, Bradford A., Ott, Amy [...] and tissue Entry 1 Skin Integrity Intact, [place], Warm, and Skin Abnormality No Dry Outcomes [...] By: Cong (more content not included)... Normal [facility] Main OR Preoperative Recordo n 03-14-2023 Main OR Preoperative Record Holding Area Document Type FTPM Summary Primary Physician: Esteban Francois DO Finalized Date/Time: 03/14/23 13:10:52 Pt. Name: CHACHO EDWARDS/Sex: 1945 Female Med Rec #: [id number] Physician: Esteban Francois DO Financial #: [id number] Pt. Type: P Room/Bed: / Admit/Disch: 03/14/23 [...] By: Tiffany Feliciano RN 03/14/23 13:10 Normal [facility] Patient Correspondenceon Patient Correspondence [id number]# 1.00CD:127 Normal [facility] Consent for Treatmenton 02-16 Consent for Treatment [id number]# 1.00CD:127 Normal [facility] Consultation Noteon 03-02-20 Consultation Note Patient: [...] BID, # 60 tab(s), Refills(s) 0, Pharmacy: [facility] [address], 163, cm, 06/23/22 7:22:00 EST, Height/Length Dosing, 130.4, kg, 06/23/22 7:22:00 EST, Weight Dosing aspirin 81 mg Oral EC Tab: 81 mg = 1 tab(s), Oral, Daily, # 30 tab(s), Refills(s) 0, Pharmacy: [facility] [address], 163, cm, 06/23/22 7:22:00 EST, Height/Length Dosing, 130.4, kg, 06/23/22 7:22:00 EST, Weight Dosing atorvastatin 80 mg Tab: 80 mg = 1 tab(s), Oral, Daily, # 30 tab(s), Refills(s) 0, Pharmacy: [facility] [address], 163, cm, 06/23/22 7:22:00 EST, Height/Length Dosing, 130.4, kg, 06/23/22 7:22:00 EST, Weight Dosing gabapentin 600 mg Tab: 1,200 mg = 2 tab(s), Oral, BID, X 90 day(s), # 360 tab(s), Refills(s) 0, Pharmacy: [facility], 162, cm, 03/02/23 11:42:00 EDT, Height/Length Dosing, 131, kg, 12/31/22 22:40:00 EDT, Weight Dosing oxyCODONE 5 mg Tab: 5 mg = 1 tab(s), Oral, q6hr, PRN for pain, # 20 tab(s), Refills(s) 0, Pharmacy: [facility], 162, cm, 01/10/23 7:41:00 EDT, Height/Length [...] All Problems Acid reflux / SNOMED CT 401035015 / Confirmed Generalized osteoarthritis / SNOMED CT 187277465 / Confirmed History of deep vein thrombosis / SNOMED CT 2430004495 / Confirmed left leg Blind left eye / SNOMED CT 532353041 / Confirmed Arthritis / SNOMED CT 9991930 / Confirmed History of obesity / SNOMED CT 1528396241 / Confirmed Hemiplegia of left nondominant side as late effect of cerebral infarction / SNOMED CT 0477349765 / Confirmed Hemianopia, homonymous, left / SNOMED CT 50404452 / Confirmed Diabetes mellitus with polyneuropathy / SNOMED CT 7807503302 / Confirmed DJD (degenerative joint disease) of knee / SNOMED CT 296276162 / Confirmed Lumbosacral radiculopathy / SNOMED CT 2270251 / Confirmed Seizure disorder, focal motor / SNOMED CT 301556578 / Confirmed Chronic kidney disease due to diabetes mellitus / SNOMED CT 4753521123 / Confirmed Chronic kidney disease, stage 3b / SNOMED CT 9188951594 / Confirmed History of CVA (cerebrovascular accident) without residual deficits / SNOMED CT 1482900227 / Confirmed Resolved: Fracture / SNOMED CT 346747032 L ulnar styloid fx with routine healing, Pain/paresthesia R hand Resolved: At risk for falls / SNOMED CT 034747298 Problem added when Risk for Falls Careplan was initiated. Resolved due to patient discharge. Resolved: At Risk For Unstable Blood Glucose Level / IMO 2960950 Problem added due to documentation that the patient has diabetes. Resolved due to patient discharge. Resolved: At risk for falls / SNOMED CT 311983034 Problem added when Risk for Falls Careplan was initiated. Resolved due to patient di (more content not included)... [facility] Comment on above: Result Comment: Elec tronically Signed By: Mirna Bryant PA-C\.br\Date and Time Signed: 03/02/23 11:50 EDT\.br\Electronically Co-Signed By: Esteban Francois DO\.br\Date and Time Co-Signed: 03/06/23 12:51 EDT Office/Clinic Note-Physician on 03-02-2023 Office/Clinic Note-Physician [id number]# 1.00CD:127 [facility] Patient Correspondenceon Patient Correspondence [id number]# 1.00CD:127 [facility] Patient Correspondence [id number]# 1.00CD:127 [facility] Patient History Officeon Patient History Office [id number]# 1.00CD:127 [facility] HIPAA Forms Officeon 023 HIPAA Forms Office [id number]#1 .00CD:127 [facility] PT - Consentson 02-14-2023 PT - Consents [id number]#1 .00CD:127 [facility] Consent for Treatmenton 01-16 Consent for Treatment [id number]#1 .00CD:127 Normal [facility] OT - Orderson 01-25-2023 OT - Orders [id number]# 1.00CD:127 Normal [facility] Outside Recordson 01-25-2023 Outside Records [id number]# 1.00CD:127 Normal [facility] Consent for Treatmenton Consent for Treatment [id number]# 1.00CD:127 Normal [facility] Consultation Noteon 01-20-20 Consultation Note Patient: [...] BID, # 60 tab(s), Refills(s) 0, Pharmacy: [facility] [address], 163, cm, 06/23/22 7:22:00 EST, Height/Length Dosing, 130.4, kg, 06/23/22 7:22:00 EST, Weight Dosing aspirin 81 mg Oral EC Tab: 81 mg = 1 tab(s), Oral, Daily, # 30 tab(s), Refills(s) 0, Pharmacy: [facility] [address], 163, cm, 06/23/22 7:22:00 EST, Height/Length Dosing, 130.4, kg, 06/23/22 7:22:00 EST, Weight Dosing atorvastatin 80 mg Tab: 80 mg = 1 tab(s), Oral, Daily, # 30 tab(s), Refills(s) 0, Pharmacy: [facility] [address], 163, cm, 06/23/22 7:22:00 EST, Height/Length Dosing, 130.4, kg, 06/23/22 7:22:00 EST, Weight Dosing gabapentin 600 mg Tab: 1,200 mg = 2 tab(s), Oral, BID, X 90 day(s), # 360 tab(s), Refills(s) 0, Pharmacy: [facility], 162, cm, 12/06/22 11:37:00 EDT, Height/Length Dosing, 131.1, kg, 12/06/22 11:37:00 EDT, Weight Dosing oxyCODONE 5 mg Tab: 5 mg = 1 tab(s), Oral, q6hr, PRN for pain, # 20 tab(s), Refills(s) 0, Pharmacy: [facility], 162, cm, 01/10/23 7:41:00 EDT, Height/Length [...] All Problems Acid reflux / SNOMED CT 127757557 / Confirmed Generalized osteoarthritis / SNOMED CT 077025197 / Confirmed History of deep vein thrombosis / SNOMED CT 4158203011 / Confirmed left leg Blind left eye / SNOMED CT 491623246 / Confirmed Arthritis / SNOMED CT 4814725 / Confirmed History of obesity / SNOMED CT 9682926366 / Confirmed Hemiplegia of left nondominant side as late effect of cerebral infarction / SNOMED CT 3907205138 / Confirmed Hemianopia, homonymous, left / SNOMED CT 84263761 / Confirmed Diabetes mellitus with polyneuropathy / SNOMED CT 0905267817 / Confirmed DJD (degenerative joint disease) of knee / SNOMED CT 067751298 / Confirmed Lumbosacral radiculopathy / SNOMED CT 4126606 / Confirmed Seizure disorder, focal motor / SNOMED CT 301311634 / Confirmed Chronic kidney disease due to diabetes mellitus / SNOMED CT 8885608456 / Confirmed Chronic kidney disease, stage 3b / SNOMED CT 7243962132 / Confirmed History of CVA (cerebrovascular accident) without residual deficits / SNOMED CT 5621094443 / Confirmed Resolved: Fracture / SNOMED CT 328844500 L ulnar styloid fx with routine healing, Pain/paresthesia R hand Resolved: At risk for falls / SNOMED CT 144903073 Problem added when Risk for Falls Careplan was initiated. Resolved due to patient discharge. Resolved: At Risk For Unstable Blood Glucose Level / IMO 5674391 Problem added due to documentation that the patient has diabetes. Resolved due to patient discharge. Resolved: At risk for falls / SNOMED CT 716414901 Problem added when Risk for Falls Careplan was initiated. Resolved due to patient discharge. Resolved: DVT - Deep vein thrombosis / SNOMED CT 0761530988 leg Canceled: At Risk For Unstable (more content not included)... Normal [facility] Comment on above: Result Comment: Elec tronically Signed By: Mirna Bryant PA-C\.br\Date and Time Signed: 01/19/23 09:42 EDT\.br\Electronically Co-Signed By: Christian VELASQUEZ, Dustin\.br\Date and Time Co-Signed: 01/19/23 19:50 EDT Office/Clinic Note-Physician on 01-19-2023 Office/Clinic Note-Physician [id number]# 1.00CD:127 [facility] Patient Correspondenceon Patient Correspondence [id number]# 1.00CD:127 [facility] Patient Correspondence [id number]# 1.00CD:127 [facility] Patient History Officeon Patient History Office [id number]# 1.00CD:127 [facility] CHEMISTRYOrdered By: Lab ROP User on 01-10-2023 Glucose [Mass/Vol] 114 mg/dL High 55 - 99 mg/dL [facility] [place] Subsection POC Device SN [id number] Invalid Interpretation Code [facility] Subsection POC User ID [id number] Invalid Interpretation Code [facility] Subsection POC Username STEFANO FRANCO Invalid Interpretation Code [facility] Subsection Capillary Glucose POCon 12-17 Glucose [Mass/Vol] 114 mg/dL High 55-99 [facility] Comment on above: Performed By: #### 2 [id number] ####[facility] [id number] [place] [address] Consent for Anesthesiaon Consent for Anesthesia [id number]#1 .00CD:127 [facility] Consent for Procedure/Surger yon 01-10-2023 Consent for Procedure/Surgery [id number]#1 .00CD:127 [facility] Consent for Treatmenton - Consent for Treatment [id number]# 1.00CD:127 [facility] Discharge Instructionson Discharge Instructions [id number]#1 .00CD:127 [facility] IntraOperative Documentson 0 01-10-2023 IntraOperative Documents [id number]# 1.00CD:127 [facility] IntraOperative Documents [id number]#1 .00CD:127 [facility] Main OR Intraoperative Recor don 01-10-2023 Main OR Intraoperative Record IntraOp Document Type FTPM Summary Primary Physician: Dustin Gonzales MD Finalized Date/Time: 01/10/23 09:38:47 Pt. Name: CHACHO EDWARDS/Sex: 1945 Female Med Rec #: [id number] Physician: Dustin Gonzales MD Financial #: [id number] Pt. Type: P Room/Bed: / Admit/Disch: 01/10/23 06:58:32 - Institution: Case Times FTPM Entry 1 Patient Times In Room 01/10/23 08:21:00 Out Room 01/10/23 09:00:00 Procedure Times Start 01/10/23 08:35:00 Stop 01/10/23 08:56:00 Anesthesia Times Start 01/10/23 08:21:00 Stop 01/10/23 09:00:00 Last Modified By: Tracy Rosa RN 01/10/23 09:03:16 Case Attendance FTPM Entry 1 Entry 2 Entry 3 Case Attendee Darius BENITES, Kyle Gonzales MD, Dustin Rosa RN, Tracy Foy Role Performed Anesthesiologist Surgeon - Primary Rag Willow Operator - Primary Brush Finisher Time In 01/10/23 08:21:00 01/10/23 08:21:00 01/10/23 08:21:00 Time Out 01/10/23 09:00:00 01/10/23 09:00:00 01/10/23 09:00:00 Procedure SPINAL CORD STIMULATOR SPINAL CORD STIMULATOR SPINAL CORD STIMULATOR IMPLANT(.) IMPLANT(.) IMPLANT(.) Comments [facility] Last Modified By: Moe WILSON, Tracy Rosa RN, Tracy Rosa RN, Tracy Foy 01/10/23 09:03:17 01/10/23 09:11:43 01/10/23 09:03:17 Entry 4 Entry 5 Entry 6 Case Attendee Edison WILSON, Sade Jones, Yong Wilde Jr., DO Role Performed Scrub - Primary Trail Construction Worker Anesthesiologist of Record Time In 01/10/23 08:21:00 01/10/23 08:21:00 01/10/23 08:21:00 Time Out 01/10/23 09:00:00 01/10/23 09:00:00 01/10/23 09:00:00 Procedure SPINAL CORD STIMULATOR SPINAL CORD STIMULATOR SPINAL CORD STIMULATOR IMPLANT(.) IMPLANT(.) IMPLANT(.) Comments Last Modified By: Moe WILSON, Tracy Rosa RN, Tracy Rosa RN, Tracy [...] Antibiotic Yes Time Out Tracy Rosa RN, Myers RN, SadeChristian New MD, Zachary, Denyer CAA, Karen Garvin Laura M Time Out Complete [...] and tissue Entry 1 Skin Integrity Intact, [place], Warm, and Skin Abnormality No Dry Outcomes Met? Yes Last Modified By: rTacy Rosa RN 01/10/23 08:29:16 Post-Care Text: The patient is free from signs and symptoms of injury caused by extraneous objects Patient Positioning FTPM Pre-Care Text: Identifies physical alterations that require additional precautions for procedure-specific positioning, verifies presence of prosthetics or corrective devices, positions the patient, evaluat (more content not included)... Normal [facility] Main OR Preoperative Recordo n 01-10-2023 Main OR Preoperative Record Holding Area Document Type FTPM Summary Primary Physician: Dustin Gonzales MD Finalized Date/Time: 01/10/23 07:53:10 Pt. Name: GRACE CHACHO Tobias/Sex: 1945 Female Med Rec #: [id number] Physician: Dustin Gonzales MD Financial #: [id number] Pt. Type: P Room/Bed: / Admit/Disch: 01/10/23 [...] Yes Comment - Adult sister in law- Madeline postop adult Supervision supervision available Case Cancelled in No Holding Area see comments below for reason Last Modified By: Soila Franco RN 01/10/23 07:43:55 Finalized By: Soila Franco RN Document Signatures Signed By: Soila Franco RN 01/10/23 07:53 Normal [facility] Progress Note-Physicianon Progress Note-Physician Patient: CHACHO EDWARDS Age: 77 years Sex: Female : 1945 Associated Diagnoses: None Author: Yong Guevara Jr., DO Postoperative Information Postoperative disposition: Postoperative disposition: To PACU. Optimetrix number: Optimetrix number [id number]. Anesthetic utilized: Monitored anesthesia care. Physical Examination Vital signs stable. Pain Assessment: Controlled. General: Awake, Alert, Appropriate. Respiratory: Adequate air exchange, Equal bilateral chest wall expansion, Non-labored. Cardiovascular: Stable, Normal peripheral perfusion. Neurological: Normal sensory function. Assessment Anesthetic outcome No anesthetic complications noted. Review / Management Condition: Stable. Plan Transfer/Discharge: Transfer/Discharge Discharge when meets criteria. [facility] Comment on above: Result Comment: [...] BID, # 60 tab(s), Refills(s) 0, Pharmacy: [facility], 163, cm, 06/23/22 7:22:00 EST, Height/Length Dosing, 130.4, kg, 06/23/22 7:22:00 EST, Weight Dosing aspirin 81 mg Oral EC Tab: 81 mg = 1 tab(s), Oral, Daily, # 30 tab(s), Refills(s) 0, Pharmacy: [facility], 163, cm, 06/23/22 7:22:00 EST, Height/Length Dosing, 130.4, kg, 06/23/22 7:22:00 EST, Weight Dosing atorvastatin 80 mg Tab: 80 mg = 1 tab(s), Oral, Daily, # 30 tab(s), Refills(s) 0, Pharmacy: [facility], 163, cm, 06/23/22 7:22:00 EST, Height/Length Dosing, 130.4, kg, 06/23/22 7:22:00 EST, Weight Dosing gabapentin 600 mg Tab: 1,200 mg = 2 tab(s), Oral, BID, X 90 day(s), # 360 tab(s), Refills(s) 0, Pharmacy: [facility], 162, cm, 12/06/22 11:37:00 EDT, [...] All Problems Acid reflux / SNOMED CT 182013285 / Confirmed Arthritis / SNOMED CT 8126718 / Confirmed Blind left eye / SNOMED CT 410996294 / Confirmed Chronic kidney disease due to diabetes mellitus / SNOMED CT 7905606771 / Confirmed Chronic kidney disease, stage 3b / SNOMED CT 5377325229 / Confirmed Diabetes mellitus with polyneuropathy / SNOMED CT 8032602226 / Confirmed DJD (degenerative joint disease) of knee / SNOMED CT 037216449 / Confirmed Generalized osteoarthritis / SNOMED CT 492584762 / Confirmed Hemianopia, homonymous, left / SNOMED CT 65370172 / Confirmed Hemiplegia of left nondominant side as late effect of cerebral infarction / SNOMED CT 3744010912 / Confirmed History of CVA (cerebrovascular accident) without residual deficits / SNOMED CT 2188096309 / Confirmed History of deep vein thrombosis / SNOMED CT 0682166955 / Confirmed left leg History of obesity / SNOMED CT 8264192743 / Confirmed Lumbosacral radiculopathy / SNOMED CT 3478800 / Confirmed Seizure disorder, focal motor / SNOMED CT 241588483 / Confirmed Resolved: At risk for falls / SNOMED CT 081168699 Problem added when Risk for Falls Careplan was initiated. Resolved due to patient discharge. Resolved: At risk for falls / SNOMED CT 221773054 Problem added when Risk for Falls Careplan was initiated. Resolved due to patient discharge. Resolved: At Risk For Unstable Blood Glucose Level / IMO 7400569 Problem added due to documentation that the patient has diabetes. Resolved due to patient discharge. Resolved: DVT - Deep vein thrombosis / SNOMED CT 2454540129 leg Resolved: Fracture / SNOMED CT 642177634 (more content not included)... Normal [facility] Comment on above: Result Comment: Elec tronically Signed By: Ismael Andre DO, Yong Zamorano\.terry\Date and Time Signed: 01/10/23 07:36 EDT C Urineon 01-03-2023 Bacteria identified Cx Nom (U) Microbiology PROCEDURE: Urine Culture [R1] SOURCE: U CleanCatch BODY SITE: COLLECTED DATE/TIME: 12/31/2022 22:55 EDT RECEIVED DATE/TIME: 12/31/2022 23:08 EDT START DATE/TIME: 12/31/2022 23:08 EDT FREE TEXT SOURCE: Billie PAYNE, Pantera Wise DO, Pantera Grimaldo. FINAL REPORTS Final Report [] [...] Locations R1: This test was performed at: [facility], [address] [place] [address], [facility]- , [place], [facility] Comment on above: Performed By: #### 1 [id number], [id number] ####[facility] [address] [place] [address] CHEMISTRYOrdered By: SYSTEM SYSTEM on 01-03-2023 Albumin [Mass/Vol] 3.8 g/dL Normal 3.3 - 5.0 gm/dL [facility] Anion gap [Moles/Vol] 12 mmol/L Normal 6 - 16 mEq/L [facility] Calcium [Mass/Vol] 8.8 mg/dL Low 8.9 - 11. 1 mg/dL [facility] Chloride [Moles/Vol] 111 mmol/L Normal 101 - 1 11 mmol/L [facility] CO2 [Moles/Vol] 23 mmol/L Normal 21 - 31 mmol/L [facility] Creatinine [Mass/Vol] 1.6 mg/dL High 0.5 - 1.3 mg/dL [facility] GFR/1.73 sq M.predicted among non-blacks MDRD (S/P/Bld) [Vol rate/Area] 33 mL/min/1.73 m2 Low >=59mL/min/ 1.73 m2 [facility] Chem S Glucose [Mass/Vol] 147 mg/dL Normal 55 - 199 mg/dL [facility] Phosphate [Mass/Vol] 3.5 mg/dL Normal 1.9 - 4 .6 mg/dL [facility] Potassium [Moles/Vol] 4.5 mmol/L Normal 3.5 - 5.3 mmol/L [facility] Sodium [Moles/Vol] 141 mmol/L Normal 135 - 145 mmol/L [facility] Urea nitrogen [Mass/Vol] 32 mg/dL High 5 - 21 mg/dL [facility] Urea nitrogen/Creatinine [Mass ratio] 20 mg/mg Normal 10 - 20 [facility] CHEMISTRYOrdered By: Ruth Dumont on 01-03-2023 Albumin Elph (U) [Mass fraction] mg/dL Invalid Interpretation Code [facility] Creatinine (U) [Mass/Vol] 58.8 mg/dL Invalid Interpretation Code [facility] Remisol U Prot/Creat Ratio [facility] Invalid Interpretation Code 0.00 - 200.00 [facility] Consent for Treatmenton 12-16 Consent for Treatment [id number]#1 .00CD:127 Normal [facility] Physician Orderon 01-03-2023 Physician Order [id number]# 1.00CD:127 Normal [facility] Renal Panelon 01-03-2023 Albumin [Mass/Vol] 3.8 g/dL Normal 3.3-5.0 [facility] Comment on above: Performed By: #### 1 [id number], [id number] #### [facility] [address] [place] [address] Anion gap [Moles/Vol] 12 mmol/L Normal 6-16 [facility] Comment on above: Performed By: #### 1 [id number], [id number] #### [facility] [address] [place] [address] Calcium [Mass/Vol] 8.8 mg/dL Low 8.9-11.1 [facility] Comment on above: Performed By: #### 1 [id number], [id number] #### [facility] [address] [place] [address] Chloride [Moles/Vol] 111 mmol/L Normal 101-111 [facility] Comment on above: Performed By: #### 1 [id number], [id number] #### [facility] [address] [place] [address] CO2 [Moles/Vol] 23 mmol/L Normal 21-31 [facility] Comment on above: Performed By: #### 1 [id number], [id number] #### [facility] [address] [place] [address] Creatinine [Mass/Vol] 1.6 mg/dL High 0.5-1.3 [facility] Comment on above: Performed By: #### 1 [id number], [id number] #### [facility] [address] [facility] [place] [address] Glucose [Mass/Vol] 147 mg/dL Normal 55-199 [facility] Comment on above: Result Comment: If t his glucose result represents a fasting glucose, interpretation should refer to the following reference range: 55-99 mg/dL Performed By: #### 1 [id number], [id number] #### [facility] [address] [place] [address] Phosphate [Mass/Vol] 3.5 mg/dL Normal 1.9-4.6 [facility] Comment on above: Performed By: #### 1 [id number], [id number] #### [facility] [address] [place] [address] Potassium [Moles/Vol] 4.5 mmol/L Normal 3.5-5.3 [facility] Comment on above: Performed By: #### 1 [id number], [id number] #### [facility] [address] [place] [address] Sodium [Moles/Vol] 141 mmol/L Normal 135-145 [facility] Comment on above: Performed By: #### 1 [id number], [id number] #### [facility] [address] [place] [address] Urea nitrogen [Mass/Vol] 32 mg/dL High 5-21 [facility] Comment on above: Performed By: #### 1 [id number], [id number] #### [facility] [address] [place] [address] Urea nitrogen/Creatinine [Mass ratio] 20 No Units Normal 10-20 [facility] Comment on above: Performed By: #### 1 [id number], [id number] #### [facility] [address] [place] [address] U Protein/Creat Ratioon 07 Albumin Elph (U) [Mass fraction] <6.0 Invalid Interpretation Code [facility] Comment on above: Result Comment: The reference range and other method performance specifications have not been established for this test; results should be integrated into the clinical context for interpretation. Performed By: #### 1 [id number], [id number] #### [facility] [address] [place] [address] Creatinine (U) [Mass/Vol] 58.8 mg/dL Invalid Interpretation Code [facility] Comment on above: Result Comment: The reference range and other method performance specifications have not been established for this test; results should be integrated into the clinical context for interpretation. Performed By: #### 1 [id number], [id number] #### [facility] [address] [place] [address] U Prot/Creat Ratio [facility] Invalid Interpretation Code .00-200.00 [facility] Comment on above: Performed By: #### 1 [id number], [id number] #### [facility] [address] [place] [address] URINALYSISOrdered By: Aakash Garcia on 01-03-2023 Bilirubin Ql (U) Negative (01/03/23 7:01 AM) Normal Negative [facility] UA Auto SS Clarity (U) Clear (01/03/23 7:01 AM) Normal Clear [facility] UA Auto SS Color (U) Vermilion *ABN* (01/03/23 7:01 AM) Invalid Interpretation Code [...] AM) Normal Negative [facility] UA Auto SS [place].plasma/[place]. RBC (Bld) [Mass ratio] 0-3 /HPF Normal [...] [facility] UA Auto SS Urobilinogen Qn (U) 1.9739396 {Daisa'U}/dL Normal 0.0 - 1.0 EU/dL [facility] UA Auto SS WBC Auto Ql (U) Negative (01/03/23 7:01 AM) Normal Negative [facility] UA Auto SS WBC LM.HPF (Urine sed) [#/Area] 0-5 /HPF Normal 0-5/HPF [facility] Auto [place] Yeast LM Ql (Urine sed) Trace (01/03/23 7:01 AM) Normal [facility] Auto SS Urinalysison 01-03-2023 Bilirubin Ql (U) Negative Normal Negative [facility] Comment on above: Performed By: #### 1 [id number], [id number] #### [facility] [address] [place] [address] Clarity (U) CLEAR Normal Clear [facility] Comment on above: Performed By: #### 1 [id number], [id number] #### [facility] [address] [place] [address] Color (U) ORANGE Abnormal Yellow [facility] Comment on above: Performed By: #### 1 [id number], [id number] #### [facility] [address] [place] [address] Epithelial cells.squamous LM.HPF (Urine sed) [#/Area] 0-2 Normal 0-2 [facility] Comment on above: Performed By: #### 1 [id number], [id number] #### [facility] [address] [place] [address] Glucose Test strip (U) [Mass/Vol] TRACE Abnormal Negative [facility] Comment on above: Performed By: #### 1 [id number], [id number] #### [facility] [address] [place] [address] Hemoglobin Ql (U) Negative Normal Negative [facility] Comment on above: Performed By: #### 1 [id number], [id number] #### [facility] [address] [place] [address] Ketones (U) [Mass/Vol] Negative Normal Negative [facility] Comment on above: Performed By: #### 1 [id number], [id number] #### [facility] [address] [place] [address] [place].plasma/[place]. RBC (Bld) [Mass ratio] 0-3 Normal 0-3 [facility] Comment on above: Performed By: #### 1 [id number], [id number] #### [facility] [address] [place] [address] Nitrite Ql (U) See Comment Normal Negative [facility] Comment on above: Result Comment: Test Not Performed Due To Interfering Substance Performed By: #### 1 [id number], [id number] #### [facility] [address] [place] [address] pH (U) 5.0 [pH] Invalid Interpretation Code 5.0-9.0 [facility] Comment on above: Performed By: #### 1 [id number], [id number] #### [facility] [address] [place] [address] Protein (U) [Mass/Vol] Negative Normal Negative [facility] Comment on above: Performed By: #### 1 [id number], [id number] #### [facility] [address] [place] [address] Specific gravity (U) [Rel density] 1.010 Invalid Interpretation Code 1.005-1.030 [facility] Comment on above: Performed By: #### 1 [id number], [id number] #### [facility] [address] [place] [address] Type of Urine collection method Clean Catch Normal [facility] Comment on above: Performed By: #### 1 [id number], [id number] #### [facility] [address] [place] [address] Urobilinogen Qn (U) 1.0 {Dasia'U}/dL Normal 0.0-1.0 [facility] Comment on above: Performed By: #### 1 [id number], [id number] #### [facility] [address] [place] [address] WBC Auto Ql (U) Negative Normal Negative [facility] Comment on above: Performed By: #### 1 [id number], [id number] #### [facility] [address] [place], [place] [address] WBC LM.HPF (Urine sed) [#/Area] 0-5 Normal 0-5 [facility] Comment on above: Performed By: #### 1 [id number], [id number] #### [facility] [address] [place] [address] Yeast LM Ql (Urine sed) TRACE Normal [facility] Comment on above: Performed By: #### 1 [id number], [id number] #### [facility] [address] [place] [address] eGFRon 01-03-2023 GFR/1.73 sq M.predicted among non-blacks MDRD (S/P/Bld) [Vol rate/Area] 33 mL/min/1.73 m2 Low >=59 [facility] Comment on above: Order Comment: Order added by Discern Expert. Result Comment: Oil Burner malcolm kidney disease could be indicated at eGFR's of less than 60 mL/min/1.73m2. Kidney failure is indicated at less than 15 mL/min/1.73m2. Performed By: #### 1 [id number], [id number] #### [facility] [address] [place] [address] Consent for Treatmenton 12-16 Consent for Treatment [id number]#1 .00CD:127 Normal [facility] Discharge Instructionson Discharge Instructions [id number]#1. 00CD:127 Normal [facility] ED Clinical Summaryon 2022 ED Clinical Summary [address] [address] ED Clinical Summary Person Information Name: CHACHO EDWARDS Ana/[facility] Age: 77 Years : 1945 Sex: Female Language: Cymraes PCP: Lani Méndez DO Marital Status: Visit [...] 12/31/2022 23:40:20 12/31/2022 23:40:20 ADDRESS: [address] [place] [id number] PHYS DOC NOTES: MEDICAL INFORMATION: Prescriptions Given: New Medications [facility], [address] [facility] [place], [place] [id number], [phone] ciprofloxacin (Cipro 500 mg Tab) 1 Tablets [...] up: With: Address: When: Lani Méndez [address] [place] [address] Business (1) In 3 days DIAGNOSIS: Acute UTI Normal [facility] ED Note-Physicianon 01-02-20 ED Note-Physician Basic Information Time Seen: Billie PAYNE Pantera Gabriella 12/31/2022 22:34 Chief Complaint Burning, bleeding, pain [...] and Complexity of Problems Differential Diagnosis: [] [facility] Data External documents reviewed: N/A My EKG [...] day(s), # 14 tab(s), Refills(s) 0, [email or web address], 162, cm, 12/31/22 22:40:00 EDT, Height/Length Dosing, 131, kg, 12/31/22 22:40:00 EDT, Weight Dosing ciprofloxacin, 500 mg = 1 tab(s), Tab, Oral, Once, Stop date 12/31/22 23:18:00 EDT, STAT, Start date 12/31/22 23:18:00 EDT, 12/31/22 23:18:00 EDT phenazopyridine, 100 mg = 1 tab(s), Oral, TID, X 2 day(s), # 6 tab(s), Refills(s) 0, Pharmacy: [email or web address], 162, cm, 12/31/22 22:40:00 EDT, [...] TID Follow-up With When Contact Information Lani Lorena In 3 days [address] [place] [address] [facility] (1) Additional Instructions: Patient Education Urinary Tract [...] fluoroscopic guidan (more content not included)... Normal [facility] Comment on above: Result Comment: Elec [...] this condition includes: ? Antibiotic medicine. ? Itpy-ctv-efnayod medicines to treat discomfort. ? Drinking enough [...] these instructions at home: Medicines ? Take pqzw-nev-cwgavzx and prescription medicines only as told by [...] Document Revie (more content not included)... Normal [facility] ED Patient Summaryon 023 ED Patient Summary [address] [address] Patient Discharge Instructions Person Information Name: CHACHO EDWARDS Age: 77 Years Arrival Date: 12/31/2022 22:31:54 Discharge Diagnosis: Acute UTI Primary Care Physician: Lani Méndez DO Provider Information Primary Provider: Pantera Wise DO Advanced Sprue Knocker:None The exam and treatment you received in the Emergency Department were for an urgent problem and are not intended as complete care. It is important that you follow up with a doctor, nurse practitioner, or physician?s data assistant for ongoing care. If your symptoms [...] Follow-up Instructions: With: Address: When: Lani Méndez [address] [place] [id number] Business (1) In 3 days In the event that this physician does not participate in your insurance network, please consult with your insurance company to find a nearby participating provider. Patient Education Materials: Urinary Tract Infection, Adult A MESSAGE TO ALL PATIENTS REGARDING OPIOIDS PRESCRIPTION OPIOIDS: WHAT YOU NEED TO KNOW Prescription opioids can be used to help relieve nfbwlaid-ps-sknekj pain and are often prescribed following a [...] be struggling with addiction, tell your health medicare biller and ask for guidance or call SAMHSA?S National Helpline at 0-083-051-HELP. v Source: [place] Department of Health and Human (more content not included)... Normal [facility] UA With Cult Reflexon 2022 Bacteria LM Ql (Urine sed) TRACE Normal Trace [facility] Comment on above: Performed By: #### 1 [id number], [id number] ####[facility] [address] [place] [address] Bilirubin Ql (U) 1+ Abnormal Negative [facility] Comment on above: Performed By: #### 1 [id number], [id number] ####[facility] [address] [place] [address] Clarity (U) CLOUDY Abnormal Clear [facility] Comment on above: Performed By: #### 1 [id number], [id number] ####[facility] [address] [place] [address] Color (U) ORANGE Abnormal Yellow [facility] Comment on above: Performed By: #### 1 [id number], [id number] ####[address] [address] Epithelial cells.squamous LM.HPF (Urine sed) [#/Area] 3-4 Normal 0-2 [facility] Comment on above: Performed By: #### 1 [id number], [id number] ####[facility] [address] [place] [address] Glucose Test strip (U) [Mass/Vol] Negative Normal Negative [facility] Comment on above: Performed By: #### 1 [id number], [id number] ####[facility] [address] [place] [address] Hemoglobin Ql (U) 3+ Abnormal Negative [facility] Comment on above: Performed By: #### 1 [id number], [id number] ####[facility] [address] [place] [address] Ketones (U) [Mass/Vol] Negative Normal Negative [facility] Comment on above: Performed By: #### 1 [id number], [id number] ####[facility] [address] [place] [address] [place].plasma/[place]. RBC (Bld) [Mass ratio] >30 Abnormal 0-3 [facility] Comment on above: Performed By: #### 1 [id number], [id number] ####[facility] [address] [place] [address] Nitrite Ql (U) Positive Abnormal Negative [facility] Comment on above: Performed By: #### 1 [id number], 9977964 ####[address] [address] pH (U) 6.5 [pH] Invalid Interpretation Code 5.0-9.0 [facility] Comment on above: Performed By: #### 1 [id number], 4474462 ####[address] [address] Protein (U) [Mass/Vol] 3+ Abnormal Negative [facility] Comment on above: Performed By: #### 1 [id number], 7926313 ####[address] [address] Specific gravity (U) [Rel density] 1.020 Invalid Interpretation Code 1.005-1.030 [facility] Comment on above: Performed By: #### 1 [id number], [id number] ####[address] [address] Type of Urine collection method Clean Catch Normal [facility] Comment on above: Performed By: #### 1 [id number], [id number] ####[address] [address] Urobilinogen Qn (U) 0.2 {Dasia'U}/dL Normal 0.0-1.0 [facility] Comment on above: Performed By: #### 1 [id number], [id number] ####[address] [address] WBC Auto Ql (U) 2+ Abnormal Negative [facility] Comment on above: Performed By: #### 1 [id number], 2393984 ####[address] [address] WBC LM.HPF (Urine sed) [#/Area] 16-25 Abnormal 0-5 [facility] Comment on above: Performed By: #### 1 [id number], 7393834 ####[facility] [address] [place] [address] URINALYSISOrdered By: Ken Chow on 12-31-2022 Bacteria LM Ql (Urine sed) Trace /HPF Normal Trace/HPF [facility] UA Auto SS Bilirubin Ql (U) 1+ *ABN* (12/31/22 10:55 PM) Invalid Interpretation Code Negative [facility] UA Auto SS Clarity (U) Cloudy *ABN* (12/31/22 10:55 PM) Invalid Interpretation Code Clear [facility] UA Auto SS Color (U) Vermilion *ABN* (12/31/22 10:55 PM) Invalid Interpretation Code [...] PM) Normal Negative [facility] UA Auto SS [place].plasma/[place]. RBC (Bld) [Mass ratio] >30 /HPF Invalid [...] [facility] UA Auto SS Urobilinogen Qn (U) 0.6708811 {Dsaia'U}/dL Normal 0.0 - 1.0 EU/dL [facility] Auto SS WBC Auto Ql (U) 2+ *ABN* (12/31/22 10:55 PM) Invalid Interpretation Code Negative [facility] UA Auto SS WBC LM.HPF (Urine sed) [#/Area] 16-25 /HPF Invalid Interpretation Code 0-5/HPF [facility] Auto SS CHEMISTRYOrdered By: Lab ROP User on 12-13-2022 Glucose [Mass/Vol] 113 mg/dL High 55 - 99 mg/dL [facility] Subsection POC Device SN [id number] Invalid Interpretation Code [facility] Subsection POC User ID [id number] Invalid Interpretation Code [facility] Subsection POC Username TIFFANY FELICIANO Invalid Interpretation Code [facility] Subsection Capillary Glucose POCon 11-17 Glucose [Mass/Vol] 113 mg/dL High 55-99 [facility] Comment on above: Performed By: #### 2 [id number] #### [facility] [address] [place] [address] Consent for Treatmenton 11-17 Consent for Treatment [id number]# 1.00CD:127 Normal [facility] Main OR Preoperative Recordo n 12-13-2022 Main OR Preoperative Record Holding Area Document Type [facility] Summary Primary Physician: Dustin Gonzales MD Finalized Date/Time: 12/13/22 07:53:47 Pt. Name: CHACHO EDWARDS/Sex: 1945 Female Med Rec #: [id number] Physician: Dustin Gonzales MD Financial #: [id number] Pt. Type: P Room/Bed: / Admit/Disch: 12/13/22 [...] 07:16 Tiffany Feliciano RN 12/13/22 07:53 Normal [facility] Progress Note-Physicianon Progress Note-Physician Patient: CHACHO [...] BID, # 60 tab(s), Refills(s) 0, Pharmacy: [facility], 163, cm, 06/23/22 7:22:00 EST, Height/Length Dosing, 130.4, kg, 06/23/22 7:22:00 EST, Weight Dosing aspirin 81 mg Oral EC Tab: 81 mg = 1 tab(s), Oral, Daily, # 30 tab(s), Refills(s) 0, Pharmacy: [facility], 163, cm, 06/23/22 7:22:00 EST, Height/Length Dosing, 130.4, kg, 06/23/22 7:22:00 EST, Weight Dosing atorvastatin 80 mg Tab: 80 mg = 1 tab(s), Oral, Daily, # 30 tab(s), Refills(s) 0, Pharmacy: [facility], 163, cm, 06/23/22 7:22:00 EST, Height/Length Dosing, 130.4, kg, 06/23/22 7:22:00 EST, Weight Dosing gabapentin 600 mg Tab: 1,200 mg = 2 tab(s), Oral, BID, X 90 day(s), # 360 tab(s), Refills(s) 0, Pharmacy: [facility], 162, cm, 12/06/22 11:37:00 EDT, [...] All Problems Acid reflux / SNOMED CT 676826633 / Confirmed Arthritis / SNOMED CT 5948682 / Confirmed Blind left eye / SNOMED CT 349715236 / Confirmed Chronic kidney disease due to diabetes mellitus / SNOMED CT 2323827347 / Confirmed Chronic kidney disease, stage 3b / SNOMED CT 5315425247 / Confirmed Diabetes mellitus with polyneuropathy / SNOMED CT 2282929484 / Confirmed DJD (degenerative joint disease) of knee / SNOMED CT 232374852 / Confirmed Generalized osteoarthritis / SNOMED CT 350346341 / Confirmed Hemianopia, homonymous, left / SNOMED CT 67061820 / Confirmed Hemiplegia of left nondominant side as late effect of cerebral infarction / SNOMED CT 3999548426 / Confirmed History of CVA (cerebrovascular accident) without residual deficits / SNOMED CT 9823750010 / Confirmed History of deep vein thrombosis / SNOMED CT 1759011003 / Confirmed left leg History of obesity / SNOMED CT 4871721048 / Confirmed Lumbosacral radiculopathy / SNOMED CT 8303089 / Confirmed Seizure disorder, focal motor / SNOMED CT 977392653 / Confirmed Resolved: At risk for falls / SNOMED CT 208901719 Problem added when Risk for Falls Careplan was initiated. Resolved due to patient discharge. Resolved: At risk for falls / SNOMED CT 208 (more content not included)... Normal [facility] Comment on above: Result Comment: Elec tronically Signed By: Onur Martínez DO.br\Date and Time Signed: 12/13/22 07:37 EDT Consent for Treatmenton 11-17 Consent for Treatment [id number]# 1.00CD:127 [facility] Patient Correspondenceon Patient Correspondence [id number]# 1.00CD:127 [facility] Outside Records Officeon Outside Records Office [id number] 3050 [id number]# 1.00CD:127 [facility] Consent for Treatmenton 10-16 Consent for Treatment [id number] #1.00CD:127 [facility] Consultation Noteon 10-27-19 Consultation Note [...] discussed removing her stimulator but after Dr. lOiver discussed the potential risk of a dural [...] her home exercises in the interim. Normal [facility] Comment on above: Result Comment: Elec tronically Signed By: Christian VELASQUEZ, Dustin\.terry\Date and Time Signed: 10/26/22 21:06 EDT Office/Clinic Note-Physician on 10-26-2022 Office/Clinic Note-Physician [id number]# 1.00CD:127 Normal [facility] Patient Correspondenceon Patient Correspondence [id number]# 1.00CD:127 Normal [facility] Patient Correspondence [id number]# 1.00CD:127 Normal [facility] Patient History Officeon Patient History Office [id number]# 1.00CD:127 Normal [facility] Coding Summary.on 09-23-2022 Coding Summary. CD:[id number] W w+PGhlYWQ+FK3RIUWdA61 ztBWrmD4sI8MUKJdMStnq NAYPGMeKGcMqexMcQV7ep XNjZXJu IC8+WU9cGSEgFatstNBgy 5E4bNL7M80rsg4cZArcnP T7DZUkIzSvatcbg1mpkZz 6IDcuNmluOyBt YTDxhU47SSL1rU45Tz01r ZGndFFma4bhiHv7NyJeWZ JyHYF2jZmzOMyku2WlMTU aH53zoUVax7I4 ZBWxtAttfAMeIeLcwAN0k Q4oDPtcargcu8lnbttoZt i4zw63yDZmd1U7zOK0M5V jpeG8FFZxoDNe TlmgaANWaN0dlkwqr9gel ptoYeJjSKDdTNr0RFo6MA SjdHzhOvGeBL28IGM8GII fvvPgX4YgBRXb cTfcIfJ7c0K1Je8TL5FYJ cnfD9OHTBXZLIhiwHQ+PC 23ma06U1XhLoyeHol3JVD gUMF4tNS9aY6z TVFeKIvcx6F7uQK5F4Rmx lXqat7pi5sqWCGtOYvhA9 6fiCTtz2O4EMZctVI9RER tzDngPdUxqW92 Oyc+DDXriHtic4NcDstbj 2owb3slaZa1FgspGPAxim KznGapSDK1l4IhFo4bOLY lwPK2mQN8mN4m PfGfNfU3NGorN724ZrRfe ZCpPlqxZ40dN1DxrWN+PH FtIqy6BGTygVijTO7tR4R hZGRpbmctbGVm hPlcLN5vIANujeraVHWba U2rQGZsJ5y4DoIpWoH6JF rtQ4NaAPWjhqziTf62qR0 eSlIfZiF0RVey I9NsmfR8PGYchZSjUKwxU ZN8I80aw2I6IWZfYEZuRK T5dQX4rP1jaAthvdoknMU mdDsgdmVydGlj ILfkXZwpA550UNRagNhuL kNvZGluZyBEYXRlOiAgMD QvMDgvMjAyMzwvdGQ+PHR mYCT2pHttYEAe uCEdFXfkYi4hjWawoWpbN Y6iFEKdhngaMMXzwO0cRW VgxGEbbLclEI8aGILpdlu ne914TbIhMPV8 HBIoeVGdS3KmnK4uMzMjO KSyBMFhZ6XqwFFzWIbuN9 47IOimSdK8VHTsigBkN4J sLWFsaWduOiB0 y2I7Jw1Iz4PxvbxpD9Afk CZcUlWpWqsnAAk6H6NcTn wvdHI+AH60HJMeIR18ENb 2PIV3jRsrGTov SJFwW3CzjN2xVjMdRAZnZ GRkOyc+PHRhYmxlIHdpZH RoPScxMDAlJyBzdHlsZT0 eVx5kVQTwAOVr qUvdiGHmYfBps3xsOROwW VueUU3ixXaoE5FuuQP6RY Pop7w4Oi95N48oQ7NvjOD +PHAxvNY5xRA6 jY0gHsAiCkP6TRphF433U eEaoNGsCpgkd6gzt3uiaQ h7QxN1FJTxktJmtEhoVYO 3v5VjUu73F63h IHdpZHRoPSIxNSUiIHZhb Rdynt5yeH6dEj3+PGNvbC K8cQL9eR1sNzLmDbV9OVi pM008MkSsmXYb Ydlzl6fse4tqsWk6WjRrZ EYdvvOryTxfNMD8f9PrNl 48V9EdwJnnr6VyRup8pv3 9sPWfy0F5wOA9 O7CtJCHsaxxjbEOesGdxH D0rILYvwqcqQKZkhJ4fIZ LcA7p3XmFcLdV4XNtmE3R ngaR8YXHnjJBz JGPbxNFSoE4jyjood3nqn snlXtNhUEMkUZb7CJg1OH MoeCmfIbJvZJS8QiK2WXC 6tYEcgB8bzLbs wlqxtE1jFnm+EAM5hZVqe UDRAS8yCldvlUZ+PHRkIH O6uQhtMLoqKNYjfX9eEVZ iL0g7YwFxEtK9 PBxuE5BhilW4DJEioGIzY XZyqOBTtI8ajfvzm9inyz xmKnNoGTFvWPj8LHc5UME saWduOiBsZWZ0 GpV2NBJ9dFRrbZ1blOivo wscuK4tIww+QmlydGggRG Y6EDo0F3HpOps3LIFjwDw xKR2yfRUfMHqv Ab3pzLlneCfvUD7uYCCau cyeq701XcOlc0wyKBRspG WzPRtwPAR4B13jj3X1WSH wIIOjPWP8sII9 pU6zcIycxakogXFyfMvja vCapQeuBCmaKKrtH805WX KinNklLuOrWYg4F0BmTvn 6GGRwnYvlXR4q oOMlYUbaTs2yuWvceIuhE G1rINWuktpzy655UrXet5 eqKHKlcAWlMIuyALC9N76 iu2E7WJBaZNKi EYD4iUZ7zP5onNtawfayy GVmdDsgdmVydGljYWwtYW jjH262YANnpKweWtRlfRa 6D9EuXws9RMRv oVdlPW4keWEwEWgnWh8gu WwisOofPE0dYIRckvwyg7 87EwFuv5bkXEIxdVUfNSg vQTH9B12tz7P0 YJTrNDVpFLU3yMR8hY2go GlnbjogbGVmdDsgdmVydG ezYQhhFHxcR005HSGcqYt nPlBhdGllbnQg QRvzWXm4N4RhGyziuBT+P T34GUPcAM62dWEkzSItb7 vghOy6NgCgWPBtNLK9bAp kRHmvl5TcOYCj N14pkBQcp4U7BWLzgGule CTtOnQwqYQ9zN4qEDtpdy yqc2imajbkXsyyp1igyt3 6sW95W80cIYwd ZHRoPSIzMCUiIHZhbGlnb n0ojY1mPq3+AHWkjZF5aD J4gF3qOMPiYhW2GVdaS31 9InRvcCIvPjxj a2kiv1gmdZj3McP1ZXNeu qMdaFxtNLB1m0RzCk64J0 9sIHdpZHRoPSIyMCUiIHZ dbTrmse2uqN8p Ii8+PAYkdTA1jAW9hS6yS tKeRhX2EFlmP305OpRqwJ YiYeauE37vJ0EotTF+PHR vNsj5BRJgaLvw QL8lcHFmGCciBr6pHFU4D qInPuFaPRruI4RxNDJyav kgiuafxAG8NTVmTQFwiH7 9Pn4khPjpGHEh mSOIgZ5vxvalm8zvlkymX kGrFCNtYAc0NEk3DJOroI fmQdTsDBH2RwX7UEF3vNB ncT7xyJeduiap kX4tX9EeJFBlinmaBh19o B4uKkChGiU1GSabDmk+U0 qEG19cJVBEZuoWRIi9L1A tIcp5VCIvaUro HA0xeMFeQDmvYb2ugNmne ObcON1hFYMbzgxkEKQouT 7uDIBhhQZprRruHH1pRES bimtwg781LsHl FMY7SHPmsFSrQ6XqdT0iZ rIlRPAcNIBsH2PifRFoCE ktS126GHeuFkP8KEBcvnQ gB0FmGHPklFxg GgN9r1F1So8jRO4lXn9sY CB2XO57RP61xJUsw9A1dJ N9G3AdGNKitrjhusmyrXL 3MSEcBZMjfJ55 tGYlKQshAs1qg4S8m222K TXySSXyiM74Ma9tuXktIO DfoGULsN2vsiyzy3hoaty gIzAwMDAwMDt0 ORd6YPZnyRjeQnNcDIN3Y bW6XTA6qKNmxA0obJhfup tbrN9mHhv+NzYgWWVhcnM 8B2OtLus5ICLg iIzaBZ7bvVLiJEtnIr0tz PhsoZawNO0lXMIwipbqTN TqmF7qFFMtdLPwsQmiSK6 wFPLfqdefx579 MiAqOOD4ANQmcWTaC9Uyl D2sWiFcAHJsAHJoK3JfgS TgXMzaY224BKqrUjX8ALQ kxzJdR2RkHVFg uMojZvH5n4Y1Yi3MSQ9eg LX8U0EtPyf9YFEfcOuwVD 9yiZNsMHwgSb8mdBsggSy pOR2oUVElfnys HECelJ6aORFvpVGdcDzvZ I1bJWVzodbbj846NuCnRE M8FKCsrYTaW0DfoG1uBtI nJAQmIVFjP0Hu oICxQIzkS302JIrtFsW7R NLlxrTlL5DrPQFnyTkpMf G9n1R9Ys4EqYThCWKjSX7 0CU57PF87S6Dc PjwvdGFibGU+PHRhYmxlI HdpZHRoPScxMDAlJyBzdH iiVS9lBu7wSPVtOBChaDy diCZmAbOsq7su FXDeDQbxWC9qpMojV7Riy RK0JAXsa4d2Br17O59zL4 JvdXA+LMAfxHN7sPP6aQ1 eZzPlUfY9XWtt H588HvSfcMJkMyeap8dmk 3rvmRa9RnJvQYZyefIjsK elOVP9u9TmIn07J14iMQd pZHRoPSIyMCUi YCWbyQqwgy2ruL7wIy8+P YAwiEO8tQS0gX2nEsUbCe P6ZFwfX503GiUvzAUpGfc eS88kF1HepTI+ XJOfPtj7CAZmiSuaBQ9vb CJkAFafVs7rGMR7BfLmJq FjEFjnE1NiYQTxmulkcqe aiMD7ADZyNVCm oS62Zh7ssLhrSx6zZYBdC YK5DVEujYCuJ3YlpX0bWw NsVBNqIPAxT1DyfTUqBSe eC655FMmoHwF4 HLEpdyPdM9HcNYZxjWbdL rI0m5Z6Uu2GnXaliJLrNC 8hTcRnRYn4X4FbHlp7FQE ziEsgBQ2noNTj XIesTb8uvMjusLzeNW4jU UBtlcofk805BeFyu4gjIK DwiJBnDXaaSRV2M94sy3N 6QFYtDJKbGTI7 fMP6rF1pfAdvbvvvpGPxo DsgdmVydGljYWwtYWxpZ2 73UXUeqAcsHiUNWne2H0F tYtl1BYIgtMop JH2kpFNfMNwuWy3vvUoxx OdfJQ7nKONquzgmk147Ub Ean7sjFIEgiTBvLPzsUYQ 4W57yj1Y5AWGm PIIxITH8yFW0gK9yoZvpe jogbGVmdDsgdmVydGljYW aoAInxA697NAGptUjxEu4 HFia6X2DbMbw5 LUEjzYooOI6ttDQxFRxlB u7xvLixvOtfWD2mSPNfnp djl416EdLqz5lkFEIuxAL jLAfeLBC7F32y d3S0JDDuFSUwAXR7iNE7d T7jnXhfgbhcwAFpfDcpex GggNlxOPaxZUcyQ739QDZ vcDsnPlBheWVy OjwvdGQ+AH03cv53R2TpC jhbXsi2VESjYYB3eSH3vO 1gGELxZJwdw7R3uQS7F3Q uifMdnz0bl1bk YXBzZTog (more content not included)... Normal [facility] Referrals Officeon Referrals Office [id number] [email or web address] Normal [facility] XR Spine Lumbosacral Minimum 4 Viewson [...] Gonzales FINAL REPORT Dictated: 09/14/2022 2:19 pm Domingo Mosquera MD, V. Signed (Electronic Signature): 09/14/2022 2:19 pm Signed by: Domingo Mosquera MD, V. Transcribed by: DAPHNE Technologist: RENEE Technical Comments Radiation Dose: Ka,r in mGy = na DAP = na Normal [facility] XR Spine Thoracic 3 Viewson 09-14-2022 [...] mGy = na DAP = na Normal [facility] Consent for Treatmenton 08-17 Consent for Treatment [id number] [email or web address] Normal [facility] Physician Orderon 09-13-2022 Physician Order [id number]# [email or web address]:127 Normal [facility] XR Pelvis 1 or 2 Viewson XR [...] = na DAP = na Normal [facility] Coding Summary.on 09-08-2022 Coding Summary. CD:[id number] W w+PGhlYWQ+VG3ESJHjI65 scHYylH0wV5CCRYrKFhja BVMRKOrPMhDwbeYbGN2fx XNjZXJu IC8+TS6bSEYeFyiacFGxz 4V9bPS5J40wej5zEHixpM J4ZWKuMyJnsqupl5xifUl 6IDcuNmluOyBt DTJyrH76OUL6gQ20Th12k GWibKKcw0pmoSa1GpFmDY BeYEU5nJigGLfpv5XtADD xS38xfHYuy6P0 JLHpeKckjBShXmKvlKR2p C2bUUyhqjtsg6ecsjtsBt m1ge90jEEgq1R8rJE0D2S cqfW8FVSpvOTi RjhjyPKZbJ1zvrpfx8vxq gkmSkUgBMWzKYl7TNq9QB EplFvdEgJwTJ01MIL4TRH zqoLvK9XeYSWc zUmkTcX6v4C0Oh9SI4HRR wibX2TSCDROSJyviJC+PC 17vx15Y7AfAkttUhd7CAJ bIGO7bCY6wB6h YLWmFJxbo5Q7oEB2S6Lmq mXwje1bl8urXSFvPFcvU7 2acVBvv6B7VNWwrYR2XVY hdOkeKoVctG27 Oyc+AATtxHbdr0NdDwiov 4pnt7sqkIf7AvlhETIhrk KknDqsGQD9w7OhEf6rJPN ebGH8cOT7eQ8m WsDfTxR0HXazD855RfWzr HZiBjoeV77wA9RgfHA+PH ZbYlx9CKMlrNgzYG8tS7K hZGRpbmctbGVm iWmyKD1eGTVhgidjPWWkb J1aYXBwA5v6YvEoIhS2KK dtH7AeKNYnauddXk38qP9 oVaBgSzY4ADzw L6KgomB4RINkbKYdOJuaB YZ0N88yl5H5YOEmVOVeGL O4eTZ1yD3ypLudmeyxnNP mdDsgdmVydGlj VQpvNGoaC330MJSplYhkU kNvZGluZyBEYXRlOiAgMD MvMjQvMjAyMzwvdGQ+PHR jCDA5kIpoBJHn kJMiOTxhUq3qpRpojKhjF Z0iQONunrgtZEPsoM2pSJ SygQGtkXbmKP0mTYYdbvj av373EoJgPOI0 WPWpxFVgT1DqwL7bRhJkO YKlIVZcV7BzbMOwNBibV3 61XAlgImQ5WGIsjkZiN0W sLWFsaWduOiB0 m2V5Yw7Ae3KmsjcaN2Try ICmWoYaOvzxKNo0T3FkBu wvdHI+ES72BMZfDK05QLl 3NNX6iIkaKYws GWTdX0IdbV3uHhAmHGLzZ GRkOyc+PHRhYmxlIHdpZH RoPScxMDAlJyBzdHlsZT0 kMa9yIKOsPQPr hDqeySSuImPvs7ghDNIoY NyeQI5mrMmdH2UxnNY1GD Shk5d0Og56Y32qC1TqaAQ +OESwjTT5jNE2 yU0wEwWgBkF6OMzjT088H vDmsOUgUomqz8isd3apdZ w5BfE2XUUyhoBoeJkfPKN 3x5QvCv44Q49b IHdpZHRoPSIxNSUiIHZhb Gzren2oyI1hTu1+PGNvbC H0gFQ8oK2dRbMsLnW6DKb nN412EzPwnGIg Nwpfj3faz2ofsXq5OrClX HLegcFodVykZYS1u3TcVk 58D8ZcqBgec3ImExe4of3 9jJDgi7J6kWE9 X5LzVSGoyahkvKBhvShqJ Q8fNNWfxtfhSAPjzZ5aOL AaY5q4YjFvLyB1RLveV7T okbE1FSHrxLSi HUMcpNXPlJ0xvwdqf6njr nufFfRcEPEzSRl0XDf5VU BauWbrJuLuDYU1UeC0AOJ 5wTQdaJ6obEcn twqsgA4uHdg+QUV5cSZyc KZTTZ3cLvowoXX+PHRkIH D2rRsxAVunUVAfvX3fPBJ vG7i5SlVxYaE6 TZlvX6ZjbsO7YKBbzZKvC WYtiHMZtD0ndkhhv0bxsz mlRiWnXXWqBJw6NOc9QBR saWduOiBsZWZ0 HlO8ZYL1rRXofP9otVebe uumpQ8pObs+QmlydGggRG Q8XRn1E1XzIrw6YROoiRz lPZ7voXZlXGzd Ce9vsYnscJvwFZ4eXEUdh crpa314XyXxg1xfBGVviU YjWTfhZNI4W05ut5N0UQH iAUUsCUL2mBH9 dM6geDyntnmmnFUyiGrnh jGemJdtHMvoVDmyK358LF XoaQvmKqZkRYl9V5ZyEou 8WXGzdIjyGU7h rEFcTNbdVo8snYjxaDrwE M2iCEDijtwzw227TiRpq4 trQNGjeGGjHTomCJE0M24 hc5E0OYFuRQCx JSM4iUA7lZ8lqPlrtwrzu GVmdDsgdmVydGljYWwtYW bxF877IVLayNrtRvNeuHe 9I1IkBnp5WEVl lKnnXU6zvWJfZVpvWb0ed ZgewMmtDU2zIYLogfbef9 69RmPpj1utEBLnhKUmSVj zKPI1J39qy6L3 JVUeOPScWHI9dXO4cT6kb GlnbjogbGVmdDsgdmVydG uzTYgbXPzzL830WNLlpLx nPlBhdGllbnQg CWfgWYs2A4YhTinmnLX+P Z72QJMxYC93aTHuwDXhx5 iluCk9EnBtEYXsUEZ5cSf iFDuuk2NeLGSo T73gsQLpb5C9DMBcfJhas MPpUaTabLR1rC9iNIoljj kll4bcrulhRibir6dmfs9 9fV12C84eURnh ZHRoPSIzMCUiIHZhbGlnb l2psG8hOj4+BNZkuUJ9yK H9nE1wDUCoTxM0EQqiJ56 9InRvcCIvPjxj s5gxj6fsiHt4OeT7MNDat bTkqJqfUXJ5g9TjCv87F3 9sIHdpZHRoPSIyMCUiIHZ jhVkfbk2tgT8x Ii8+FXEdvXE3aUP3gN7dC pKmQzC8PBvuU707HkFnzV XhKfycA30dS4PlrED+PHR tVnu3UNSizNuo IC3bjNMcSLceEn6iDIO2B aRqTdNoQVwgC8CtDQKnge vlnwnanXQ3JMQrVJXrnF1 9Bc2wxDwjHWBd iFCJtQ6arspww8ogspzyW vPcCZDrEYq9BBn3XVQvmQ yaFgOuXYQ4LmB5TTI2eUT utW8afOefsbpd zN7bJ8RkXWMmkrqyVi57a R4oLtTbOrC8YOppVrz+U0 mZX79uCFCFKrdISMp4E3K qKqg5JHNbhWbw WF3noCVqNNcnRa7noInvn BuwLZ1dTOFayldxGSCpeG 3cQVTuoWWnjGmkEE5cSDN twwxdm286SrLw UOQ3FTMfyBCmP9FkgI0sS hGkAJNjNNIoK7KvoYMoUQ gcY807CWndMvG0GXSuxrW bW4KgWWDihGhz CgM5g0J8Mh0bQV3aUl8fJ EZ7PM10SY68qPGzb6X0eA D3K1PxUKAbopwizffadZJ 4QHKmULNxzO80 hGRtQPxsHy6ws4X7e978X IRbWWDtaV53Sa1dpNmfSW CvdYLUoE9hoanwz4xnuqq gIzAwMDAwMDt0 JVv4SCZuwOhwHuKbXNT5J cV7AEB1rRCfxI5hnMjvgx znyD0eRgx+NzYgWWVhcnM 8H6LiJba3HSVc bZwuZF1nxERkBBwaId9cn NnzoGvbOV2tOIVsxetkYK PfaB8fLWNtxXThrChmRK3 yTSYoukqee985 XiYhPQI2GOEqgGHkU8Fmq N8gLhPsQPFaLSQtR5BsnA XcFJdaI773HXywQfM8DFP andOjS6QlQHMt fCvuWcX1y5A0Gf6BDR2kw XR4X1JtDlb9QKQozTtqNM 3gpOTjMDpyVq5uuGwqvYo cMR0fUXZsiecx LVAqtH5qCUBhuKCrfNybY P9cNBHlkuvcw889AsYeGO T3FMOgcSHrK7AzuP8eJrN aTIUjPSKtX2Gj mFGoOIxtC177GPzcGpF5I KOlxfMgP9GtVUTkyTwtCq G1m4G6Gs9OVFFeIMShnSA rPbF6K7KnOobg dHI+XX21UIElOQ82oTLfg BIrx9qbaYu0KnRlJVRoJB E3wYhgYQonx6QgAOBfK14 nfONgn5K5LEBe wJymuSVvMaJceZT5pN1eZ Vyjyshkx5hvbaiaVmdmw9 xfek60mK72P24sIEglVEE oPSIzMCUiIHZh zJrqfo9mhW0jHc4+PGNvb FR0eKK1kZ8mWdJcLyB1IW ijF030RdRisIBfTivqm6z xu0jxtXr9KrQe UDPowwOhqBtlKQR6x9ZgT p98W30fOEhlKZVkTKPtRW UaBOScbZwnbf7giR0tEw9 +XO9zr6imdn53 gU29iMD+SXFpKGI7lBzdI EbtSVCpxA6fDGkrFlX4SR LjWgQuqQ46bVXmNHyeOy3 wxRmrsWrjMD6t LDDlrtrtm152AcDyk9mjQ IKurLYySXrhFOR2D42cq3 B5QFAwUPZwPNR5pKI8nJ2 hbGlnbjogbGVm dDsgdmVydGljYWwtYWxpZ 497QXMuoRhbDzQuuYFjZ1 avvzODYI6xQvndiAU+PHR qKAX4dWdxPMtj ROYbyL9uAGXaX5b2MtOrY jO5ZNqzE4KvlsC4BTGxyR XyZQMpzTZRlC3wymmod2d vcjogIzAwMDAw SDk0RXi9TFGmzGgxEgHtP IP2JcJ7RNY6fBIxwK1tjZ dcyncyrN6yDmi+RklOOjw vdGQ+PHRkIHN0 mDpzTNphOTQwyT1sUMWsY 5f1UeZpAfD5UAmlG3Yuct X6IGLecQSqYMOyzLPNcP6 gdqfva5gloqom ZrKnLKVdABl5AVh5TGVxs MpjAkOqTHT0KdC8NNW4uQ JjjP2fyUxypsaqqI7qPzt +TVJOOjwvdGQ+ YPVcBDE5rSsyDIsdPYTal V7uMHLsG9e2HwKjMwG6NZ rtB1HtjiY5YAFadCOsWVK brLRNbP9zwjue o6fuasdaMiSpJFGxLKf6I Bs9RUPwjLvoWwVqZXG4Na O6WJR2jWHuvX1jxUeunwd fjU3eOyr+UGF5 CHS7AK27QS27H7JfHstya GFibGU+PHRhYmxlIHdpZH RoPScxMDAlJyBzdHlsZT0 yJg3sZMTeMAEs bGxhcHNl (more content not included)... [facility] C Urineon 09-06-2022 Bacteria identified Cx Nom (U) Microbiology PROCEDURE: Urine Culture [R1] SOURCE: U CleanCatch BODY SITE: COLLECTED DATE/TIME: 09/02/2022 13:19 EDT RECEIVED DATE/TIME: 09/04/2022 13:28 EDT START DATE/TIME: 09/04/2022 13:28 EDT FREE TEXT SOURCE: PAYTON Argueta APRN, KENISHA Argueta APRN-Kellie, Verónica Chey Verónica X FINAL REPORTS Final Report [] [...] Locations R1: This test was performed at: [facility], [address] [place] [address], [facility]- , , [facility] Comment on above: Performed By: #### [id number] ####[place] [id number] Coding Summary.on 09-04-2022 Coding Summary. CD:[id number] G h0bWw+PGhlYWQ+GY8RGEV xJ07gpKZpfI4jC3OXVFiS SywgQVBQTElOSyIgbmFtZ P0ltQHdUNCs IC8+QE3wYWHrXbhkgSUtn 5G7hRB1V00whl4xVXsjiD A1PSUpLbLvvclnp6bdqEj 6IDcuNmluOyBt IJLamT64TYL4fW01Hl83h GUmyLJmq5meqVx5RxYjUB RnHQT6gBigJRbtx1KiOSS zQ73ifYXbc6O6 SKYmkHotbLMtVtQyyOJ7b T1yYMsqygatt1tteeoeTm l6ss78yNNmh1W0iAZ2T4D wycW6RBAocZZq UdgymGJRyI5bavqog2nyi nmwAjHvOEJsTIs8VRy9QE TxbPieJgMbMB11XMT2WJS fzdGnL9UcJGWf fTtqXfL3s3J5Ab5XR0DJX oxkX0VBIFKBWHqaiIK+PC 64xr77Y6NfZpjqVeg2TXJ eHXK6rSM7xY4a AJMzYYsxc5C7xNM0C9Ipf pFzuv5rs4tiCZZaGAadA1 4fiTZfw7Y6ALAyfOB5ZYY kmVwbPjMykT75 Oyc+LRIaeKkcl1XyGkhdq 1jli3rhyYl4UkskZWMgci PtiWxcGMU6o3LwAp2hWHK lkQP7gDR9nF4q AhLaPrF9WRsuY651GoVco UJuLiywT02fA6WikXM+PH OiXtg0WLQplKmzSX7nT2U hZGRpbmctbGVm nOnbSJ6ySSLydabgDXIfi T4iQDXtN5a1MmObDkL2DN wxI7UhJPTivagqNn79jR6 cVlRfAqV1NIjm J8MwlvU2XRPdjMEtJRqrI VT5B56mb1S8SRMoZACoDW X6xWN0kS4hkTuxnvsarNF mdDsgdmVydGlj ZCtkPWxiP826ZZBtpFimZ kNvZGluZyBEYXRlOiAgMD MvMjAvMjAyMzwvdGQ+PHR uVER6tIjeVKQd iVJsIDfeWn6dgQfycTquJ W9lZKTrdpiaXRIztF0cSW YzwVOzdJyuWK7mKQQixgq bf264FcHqHMR3 UKKyrDRmQ7DouN1gDmMaE UPuGEUgZ3KdcHIjHPxmI0 10EQxcKyI9DTDeymHcL3B sLWFsaWduOiB0 m9L5Of4Tx5BtbebvB7Zdg TFcHhNsQiipGTf0O4FbMo wvdHI+KG81DYQdHW32KWh 7VXQ3oLzdHXts UDYeL9EzaG7mZrWkOWZyU GRkOyc+PHRhYmxlIHdpZH RoPScxMDAlJyBzdHlsZT0 yTj1uMVFsLASr hElgfIPxSsUbf2arJXZeK LyiMI5inHqpK9QafIC2HU Owp7c7Tf40O24lB6DcjXD +ACKxpXX5jKG0 mC8iSuUrVkN7RJfoT864D lHlkPPaUeybk6mwb1nfaE v8XvE9LVTdmgZaqMuiFUO 4t0CaUx01U67b IHdpZHRoPSIxNSUiIHZhb Aunlw1viG8gUg6+PGNvbC K8uNC6eF8sOdDmZtC9KAh tK303UvLfxLMy Ojqbh5clr4cuoAn2XnZsI JGbrmYzgXlwWTK9x0GzQl 84R0RxqKevq1PwSye7uf2 2wGDcn7V1tBV5 O0UuBURvpxhnvIYjrNpsV H7zBMDoiwddWSMzxY9uSJ LlQ5d9UnEbHzK7YQevV5J yylN5WAFaeEBi OKRzjGBLqM0odsmzx7cyl thxSaDnFZYuNZv6PQp4EP BdqLxiIyElTWT1WyW8TRK 7xIHgkT8tcTub zhikhE1rXen+JRC2oRNrh VWTCS1mGlwljJE+PHRkIH Q3cJtlDRlySCPyoE6wGGG dC0v5BqWqOdC3 YFzbS2EvmvM6KEDogSCvV TFklVHXhD8hibqyi1txre jsPuInHJMuVSy2EPg0ZCE saWduOiBsZWZ0 MvJ7MZR7kRZdfP3doRfba cqdfB2oZnp+QmlydGggRG K9ZGg4M6OmOrl1MBOczBy xXG9yaZMgJGlt Xb4gkQecpMjuFY3pOOSvr kpap339TjBdj9aaXLGvxC IbYFxzDLD1B41xi0A8RWF lBWQuYXP2hIE6 zD4ftXohakoggSRahSnci vDsyLdmNOpiGWoiN586SF WkxWgeIfZyFYc9F3UdYzk 6YBQndUosXW5e gTQpPYkdYs8vxBdvoZcuG C8cHBCcftmql362PaHit3 bnTDBfhDTyHVjsSFY3K74 xb7T0UTQiGKEz LQH0lVQ8eS6aySvhfvadq GVmdDsgdmVydGljYWwtYW vdB882MVRdpMmiTaJbuWh 6T0OzEgz9BNXm pTheUT0zzKQqMNcsQn7zd ImusSexBC5dBSFmqjwbm8 42ToDhy4pzXMDvhAFtSQk bNQD2U60ji6W2 KROvMOVzPDI8rSV7nT7nd GlnbjogbGVmdDsgdmVydG cdXMnpXHlnZ667FKOcgFu nPlBhdGllbnQg ZOdkGJc9Z8KwBxbkwGM+P U88OZWpJW65iARlwYYjo7 rohJt3GaTwPOKcPAO7zSv xRYeoc7HkYUZv X39fdSQlz2L8JBQtgPuye PJdGqHklVZ3yG7wRYuoql zsv9tdaftoRowtn6ytgu2 5xF39K47pGLkw ZHRoPSIzMCUiIHZhbGlnb g1siC7eWe5+FEElgGZ8uI M0uO4cLYHcOdG1ENsoG67 9InRvcCIvPjxj j3sxl9uzvKn5LtT0FIMwx wQdyQopJCU7e7VeWb37F4 9sIHdpZHRoPSIyMCUiIHZ lhXhlcl9txC3l Ii8+BLQfoXO9yXO8xX5xB oJeEkK7YUzoU642EkGduU EcBryhE40gE4MsqBE+PHR zFmm3PEFqqCjp OS8tpGJpQLicGa5qLYP5P qUsEiDiMPvkD8AdMKGzln ibzjtbmRM7LYOsHMAhmR2 1Bn1lfUnkNMTq bQHOvA2vdnans6vqqkqsS xMxTIUzXQa7LRj4KCIeqY zkLrOtJJZ3MzL6ENV4qUQ skQ2eiScxztcr iI9dL7SaHJBqxzcgBb00g E7bUnOnDcO4LOiqNmb+U0 nJE60tNPRTYlxSCYp9O3P tTdc2ISBxqIxk NG4bwHHuXBcqTv2wuRsje EvcOT7qUURkfycgVUXtaF 9xYHLhrKFpcFlnUT6rMPL yxekpi582KiOc WQG5NROsqCHqJ3LrpG2gJ xZiSRHqGTMkU0TvdCXeUB rhC749LNyuMxP2MXNhdsJ aV7YcHEAajKfr SlU2v6W9Qy2rWD3wUs4bL EH6KN06ZR32uIYsv1F6oR B5M2MsLLZfvvapkkpvgLG 8WWHvMZWenK76 xGAmHJwkAm5ih5O8w076A GSzLHNcpC11Bw5pxBntRJ SbkHHXoY5aogtkx2fxzoc gIzAwMDAwMDt0 TMn3WGTcdNgpFnEyEGL0Z zF3YPM3vIVhwP4chQujjo rttM4iQog+NzYgWWVhcnM 3O3TdBwc0XTIz nWdsLQ3hmBAjLFplPv1pn DrasFoxHH3dDCIvxnpiEI OgnV1xOYYlqAZphZosOH5 zRLYmmxpuu921 SzBjLJE2CJIjsHGrU0Gis E5tKnDaSVSkAQJsN5MivR EfIYpyT185WHopSyZ7ABG dnyCuJ3WeJNQc bPcdMsI9k7Y3Wm1OWR8to LQ0B9CbZoz8PHSuuZuoZS 8onGBfJUmlOt1raZpueDt oVS4gXTHqbpwn TFOnyZ4eEZCmlBPuiVwhZ H0dPDEdjmqgp167EwAyTO H8KHNojLVqF8HocN8eUeS iPXGaKFKzJ0Kg jJDnSFivM670NHbnLyE8Y FSwumMaA4BzWXYgvLmqMf M2o5B9Nw1QRPtgHT3hqyI bFU6hedB7C7Ri PjwvdHI+GO04LPNpCD13q UGimCCrb0vvyFp1MuZuFR DsBIY6qMcoICegs9TkOBF aA83jxERsi6H6 ZCEzgNlukRPbZvGnfLJ7f X4xOIlxqzwlp5vwcegwYj zjs7cxju78vH22B40dRRs pZHRoPSIzMCUi FRSpmObhxx4elT8iRz4+P XDkgXO4eHZ1aS1bXdZvXt T0JZrtA669ItIlqUIrQqw mj0eey6dphYl9 PmPjCBJritSblBjgSGJ9e 4UhRi83T42oRWwdQDIlXD OnCDAoAMPhqJmkbu5epX1 wIi8+DL8yn6ur tt99pB51kSU+KLQkIHA3f YksCGzvSXXdjQ8gEIxtPw V8UKBoIgLsxM76mZRrOHb kUc1bvSmsgAsy SU3fDNYdxnubq538EoImt 9gfHFDcfFLwNIpnLOD1J3 9vi8B3ZNVuJIJiHPM3lVZ 1rT0htLlgcmam bGVmdDsgdmVydGljYWwtY IsuW830BZSolHirZrSqtE VaW7goclEKOV1aCbtlgZN +SKGmXGO3fQvq CSoyNKAknQ8nUHCbL7e8B gBdYaX9GHseX7ScszI3RE XzkIQkNIJujLXEnA4lbnc jl6ivwfmeGkDj ORIhYUn4ADc9HJRyfKixG lGdXRX2ZeF2CDK8wGTxpX 9baAvrpuepnC1zWpk+Rkl OOjwvdGQ+PHRk QKE8dCxsKUvaZVPhyO0qB NQmL1q2MhSvTqW1EBjnI6 TawsC4XLWfgQJkVEWbeAF JyA4ghpaqo7qo qknoXmGwLDHpPRl9VGt2X FWbdUfoEyQjJRA5KzC2YD Q9dQAufZ8kwAsfwqnfkZ9 wOyc+TVJOOjwv dGQ+YFEtIXD4nBfnGOqhY REokI5wFXQaU0w0TpKwRt K9BLslH1MgpzL0ODAxrDJ sODUxxYPHaA0z ouitp5rtcxysUaJiMKBnP Qy1DUd0RJSmiBciZnZyYX P9EvZ6KYM1gBByhJ8hrLz hnqdiwZ0jRtl+ FMG2FPU5VV62OG16M4FcD jwvdGFibGU+PHRhYmxlIH dpZHRoPScxMDAlJyBzdHl hOC7zZq0mGJMf LWNv (more content not included)... Normal [facility] Family Medicine Office/Clini c Noteon 09-02-2022 [...] day(s), # 14 tab(s), Refills(s) 0, Pharmacy: [facility], 162, cm, 09/02/22 12:13:00 EDT, [...] Urnls Dip Stick Non-Auto w/o Micrscpy POC 41215 Follow-up With When Contact Information Lani Méndez [...] mg, Ora (more content not included)... Normal [facility] Comment on above: Result Comment: Elec tronically Signed By: PAYTON Argueta APRN, [place] X\.br\Date and Time Signed: 09/02/22 12:43 EDT Patient Educationon 09-03-19 Patient Education Nutrition BMI for Adults Body [...] height. This can be done either in [place] or metric measurements. Note that charts are available to help you find your BMI quickly and easily without having to do these calculations yourself. To calculate your BMI in [place] measurements, your health care provider will: [...] problems. ? BMI can be measured using [employer]ym[employer] measurements or metric measurements. ? To interpret [...] 02/13/2005 Document Revised: 05/17/2018 Document Reviewed: 04/17/2018 [employer] Patient Education ? 2019 [employer]. Obstetrics and Gynecology Urinary Tract Infection, Adult [...] your ri (more content not included)... Normal [facility] Consent for Treatmenton 08-16 Consent for Treatment [id number] [facility] [id number]#1 .00CD:127 Normal [facility] Legal Correspondence Officeo n 08-31-2022 Legal Correspondence Office [id number]# 1.00CD:127 [facility] Office/Clinic Note-Physician on 08-31-2022 Office/Clinic Note-Physician [id number]#1 .00CD:127 Normal [facility] Patient Correspondenceon Patient Correspondence [id number]#1 .00CD:127 [facility] Patient Correspondence [id number]#1 .00CD:127 [facility] Patient Correspondence [id number]#1 .00CD:127 Normal [facility] Patient History Officeon Patient History Office [id number]#1 .00CD:127 [facility] Physician Orderon 08-31-2022 Physician Order [id number]#1 .00CD:127 [facility] Glucose Glucometer (BldC) [M ass/Vol]Ordered By: Delio Gonzales on 07-13-2022 Glucose [Mass/Vol] 97 mg/dL [facility] Comment on above: Random Glucose Refer ence Range is dependent on time and content of last meal. Glucose of more than 200 mg/dL in a nonstressed, ambulatory subject supports the diagnosis of Diabetes Mellitus. Glucose Poct Glucometerson 0 07-13-2022 Commemt1 Glu2: Cleaned Meter Normal [facility] Comment on above: Result Comment: PERF ORMED BY: [address] [place] [address] PATHOLOGIST INCIDENT ENGINEER SHANNAN GARZA M.D. Performed By: #### B MP #### [address] [place] [address] [facility] Glucose [Mass/Vol] 97 mg/dL Normal [facility] Comment on above: Result Comment: [place] om Glucose Reference Range is dependent on time and content of last meal. Glucose of more than 200 mg/dL in a nonstressed, ambulatory subject supports the diagnosis of Diabetes Mellitus. Performed By: #### B MP #### [facility] [address] [place] [address] No Panel InformationOrdered By: Delio Gonzales on 07-13-2022 Bedside Glucose Comment Glu2: cleaned meter [facility] Glucose Poct Glucometerson 0 07-12-2022 Commemt1 Glu2: Cleaned Meter [facility] Comment on above: Result Comment: PERF ORMED BY: [place] [address] PATHOLOGIST INCIDENT ENGINEER SHANNAN GARZA M.D. Performed By: #### G LULS #### Point of Care testing , Glucose [Mass/Vol] 113 mg/dL Normal [facility] Comment on above: Result Comment: [place] Glucose Reference Range is dependent on time and content of last meal. Glucose of more than 200 mg/dL in a nonstressed, ambulatory subject supports the diagnosis of Diabetes Mellitus. Performed By: #### G LULS #### Point of Care testing , Commemt1 Glu2: Cleaned Meter [facility] Comment on above: Result Comment: PERF ORMED BY: [place] [address] PATHOLOGIST INCIDENT ENGINEER SHANNAN GARZA M.D. Performed By: #### G LULS #### Point of Care testing , Glucose [Mass/Vol] 97 mg/dL Normal [facility] Comment on above: Result Comment: [place] om Glucose Reference Range is dependent on time and content of last meal. Glucose of more than 200 mg/dL in a nonstressed, ambulatory subject supports the diagnosis of Diabetes Mellitus. Performed By: #### G LULS #### Point of Care testing , Basic Metabolic Panelon 06-19 Anion gap [Moles/Vol] 14.1 mmol/L Normal 6.0-15.0 [facility] Comment on above: Performed By: #### G LULS #### Point of Care testing , Calcium [Mass/Vol] 9.0 mg/dL Normal 8.2-10.2 [facility] Comment on above: Performed By: #### G LULS #### Point of Care testing , Chloride [Moles/Vol] 109 mmol/L Normal 95-[address] [facility] Comment on above: Performed By: #### G LULS #### Point of Care testing , CO2 [Moles/Vol] 23.7 mmol/L Normal 22.0-30.0 [facility] Comment on above: Performed By: #### G LULS #### Point of Care testing , Creatinine [Mass/Vol] 1.49 mg/dL High 0.44-1.03 [facility] Comment on above: Performed By: #### G LULS #### Point of Care testing , Creatinine Clr Calc Pharmacy 41.81 [facility] Comment on above: Result Comment: PERF ORMED BY: [facility] [address] [place] [address] PATHOLOGIST INCIDENT ENGINEER SHANNAN GARZA M.D. Performed By: #### G LULS #### Point of Care testing , Estimated GFR ( Ana 41 [facility] Comment on above: Result Comment: GFR estimated reference range: According to KDOQI guidelines, <60 ml/min/1.73m2 is sufficient to diagnose a patient with chronic kidney disease. Performed By: #### G LULS #### Point of Care testing , Estimated GFR (Non- Am 34 [facility] Comment on above: Performed By: #### G LULS #### Point of Care testing , Glucose [Mass/Vol] 84 mg/dL Normal 70-100 [facility] Comment on above: Result Comment: [place] Glucose Reference Range is dependent on time and content of last meal. Glucose of more than 200 mg/dL in a nonstressed, ambulatory subject supports the diagnosis of Diabetes Mellitus. ADA recommended reference range Performed By: #### G LULS #### Point of Care testing , Potassium [Moles/Vol] 4.8 mmol/L Normal 3.5-5.1 [facility] Comment on above: Performed By: #### G LULS #### Point of Care testing , Sodium [Moles/Vol] 142 mmol/L Normal 136-146 [facility] Comment on above: Performed By: #### G LULS #### Point of Care testing , Urea nitrogen [Mass/Vol] 26 mg/dL High 9- [facility] Comment on above: Performed By: #### G LULS #### Point of Care testing , Basophils Auto (Bld) [#/Vol] Ordered By: Mariposa Martinez on 07-11-2022 Basophils (Bld) [#/Vol] 0.0 10*3/uL 0.0-0.2 [facility] Basophils/100 WBC Auto (Bld) Ordered By: Mariposa Martinez on 07-11-2022 Basophils/100 WBC (Bld) 0.6 % . [facility] Complete Blood Count Auto Di ffon 07-11-2022 Basophils (Bld) [#/Vol] 0.0 10*3/uL Normal 0.0-0.2 [facility] Comment on above: Result Comment: PERF ORMED BY: [facility] [address] [place] [address] PATHOLOGIST INCIDENT ENGINEER SHANNAN GARZA M.D. Performed By: #### G LULS #### Point of Care testing , Basophils/100 WBC (Bld) 0.6 % Normal . [facility] Comment on above: Performed By: #### G LULS #### Point of Care testing , Eosinophils (Bld) [#/Vol] 0.2 10*3/uL Normal 0.0-0.45 [facility] Comment on above: Performed By: #### G LULS #### Point of Care testing , Eosinophils/100 WBC (Bld) 3.7 % Normal . [facility] Comment on above: Performed By: #### G LULS #### Point of Care testing , Erythrocyte distribution width (RBC) [Ratio] 13.6 % Normal 11.9-15.3 [facility] Comment on above: Performed By: #### G SERGO #### Point of Care testing , Hematocrit (Bld) [Volume fraction] 38.5 % Normal 34.0-46.4 [facility] Comment on above: Performed By: #### G FERNLS #### Point of Care testing , Hemoglobin (Bld) [Mass/Vol] 12.5 g/dL Normal 11.8-15.4 [facility] Comment on above: Performed By: #### G FERNLS #### Point of Care testing , Lymphocytes (Bld) [#/Vol] 1.5 10*3/uL Normal 1.00-4.8 [facility] Comment on above: Performed By: #### G FERNLS #### Point of Care testing , Lymphocytes/100 WBC (Bld) 31.6 % Normal . [facility] Comment on above: Performed By: #### G FERNLS #### Point of Care testing , MCH (RBC) [Entitic mass] 30.6 pg Normal 24.7-34.3 [facility] Comment on above: Performed By: #### Lona SHIRLEYLS #### Point of Care testing , MCV (RBC) [Entitic vol] 94.3 fL Normal 80-100 [facility] Comment on above: Performed By: #### G FERNLS #### Point of Care testing , Mean Corpuscular HGB Conc 32.5 g/dL Normal 32.0-35.0 [facility] Comment on above: Performed By: #### G SERGO #### Point of Care testing , Monocytes (Bld) [#/Vol] 0.5 10*3/uL Normal 0.0-0.8 [facility] Comment on above: Performed By: #### G FERNLS #### Point of Care testing , Monocytes/100 WBC (Bld) 10.0 % Normal . [facility] Comment on above: Performed By: #### G FERNLS #### Point of Care testing , Neutrophils (Bld) [#/Vol] 2.6 10*3/uL Normal 1.8-7.7 [facility] Comment on above: Performed By: #### G FERNLS #### Point of Care testing , Neutrophils/100 WBC (Bld) 54.1 % Normal . [facility] Comment on above: Performed By: #### G FERNLS #### Point of Care testing , NRBC% 0.2 /100{WBC} Normal 0-0.5 [facility] Comment on above: Performed By: #### G LULS #### Point of Care testing , Platelet mean volume (Bld) [Entitic vol] 9.2 fL Normal 6.3-10.7 [facility] Comment on above: Performed By: #### G FERNLS #### Point of Care testing , Platelets (Bld) [#/Vol] 191 10*3/uL Normal 150-450 [facility] Comment on above: Performed By: #### G FERNLS #### Point of Care testing , RBC (Bld) [#/Vol] 4.08 10*6/uL Normal 3.60-5.00 [facility] Comment on above: Performed By: #### G FERNLS #### Point of Care testing , WBC (Bld) [#/Vol] 4.8 10*3/uL Normal 3.8-11.6 [facility] Comment on above: Performed By: #### G FERNLS #### Point of Care testing , Creatinine and Glomerular fi ltration rate.predicted panel (S/P/Bld)Ordered By: Mariposa Martinez on 07-11-2022 Creatinine [Mass/Vol] 1.49 mg/dL 0.44-1.03 [facility] Eosinophils Auto (Bld) [#/Vo l]Ordered By: Mariposa Martinez on 07-11-2022 Eosinophils (Bld) [#/Vol] 0.2 10*3/uL 0.0-0.45 [facility] Eosinophils/100 WBC Auto (Bl d)Ordered By: Mariposa Martinez on 07-11-2022 Eosinophils/100 WBC (Bld) 3.7 % . [facility] Erythrocyte distribution wid th Auto (RBC) [Ratio]Ordered By: Mariposa Martinez on 07-11-2022 Erythrocyte distribution width (RBC) [Ratio] 13.6 % 11.9-15.3 [facility] Estimated glomerular filtrat ion rate (GFR) non- AmericanOrdered By: Mariposa Martinez on 07-11-2022 GFR/1.73 sq M.predicted among non-blacks MDRD (S/P/Bld) [Vol rate/Area] 34 mL/Min [facility] Glucose Poct Glucometerson 0 07-11-2022 Commemt1 [facility] Comment on above: Result Comment: Glu2 : WILL NOTIFY DR/RN Performed By: #### G LULS #### Point of Care testing , Commemt2 Cleaned Meter [facility] Comment on above: Result Comment: PERF ORMED BY: [facility] [address] [place] [address] PATHOLOGIST INCIDENT ENGINEER SHANNAN GARZA M.D. Performed By: #### G LULS #### Point of Care testing , Glucose [Mass/Vol] 87 mg/dL Normal [facility] Comment on above: Result Comment: [facility] Glucose Reference Range is dependent on time and content of last meal. Glucose of more than 200 mg/dL in a nonstressed, ambulatory subject supports the diagnosis of Diabetes Mellitus. Performed By: #### G LULS #### Point of Care testing , Glucose [Mass/Vol] 83 mg/dL Normal [facility] Comment on above: Result Comment: [place] Glucose Reference Range is dependent on time and content of last meal. Glucose of more than 200 mg/dL in a nonstressed, ambulatory subject supports the diagnosis of Diabetes Mellitus. PERFORMED BY: [facility] [address] [place] [id number] PATHOLOGIST INCIDENT ENGINEER SHANNAN GARZA M.D. Performed By: #### G LULS #### Point of Care testing , Hematocrit Auto (Bld) [Volum e fraction]Ordered By: Mariposa Martinez on 07-11-2022 Hematocrit (Bld) [Volume fraction] 38.5 % 34.0-46.4 [facility] Hemoglobin [Mass/volume] in BloodOrdered By: Mariposa Martinez on 07-11-2022 Hemoglobin (Bld) [Mass/Vol] 12.5 g/dL 11.8-15.4 [facility] Leukocytes [#/volume] correc [place] for nucleated erythrocytes in Blood by Automated counOrdered By: Mariposa Martinez on 07-11-2022 WBC corrected for nucl RBC Auto (Bld) [#/Vol] 4.8 10*3/uL 3.8-11.6 [facility] Lymphocytes Auto (Bld) [#/Vo l]Ordered By: Mariposa Martinez on 07-11-2022 Lymphocytes (Bld) [#/Vol] 1.5 10*3/uL 1.00-4.8 [facility] Lymphocytes/100 WBC Auto (Bl d)Ordered By: Mariposa Martinez on 07-11-2022 Lymphocytes/100 WBC (Bld) 31.6 % . [facility] MCH Auto (RBC) [Entitic mass ]Ordered By: Mariposa Martinez on 07-11-2022 MCH (RBC) [Entitic mass] 30.6 pg 24.7-34.3 [facility] MCHC Auto (RBC) [Mass/Vol]Or dered By: Mariposa Martinez on 07-11-2022 MCHC (RBC) [Mass/Vol] 32.5 g/dL 32.0-35.0 [facility] MCV Auto (RBC) [Entitic vol] Ordered By: Mariposa Martinez on 07-11-2022 MCV (RBC) [Entitic vol] 94.3 fL 80-100 [facility] Monocytes Auto (Bld) [#/Vol] Ordered By: Mariposa Martinez on 07-11-2022 Monocytes (Bld) [#/Vol] 0.5 10*3/uL 0.0-0.8 [facility] Monocytes/100 WBC Auto (Bld) Ordered By: Mariposa Martinez on 07-11-2022 Monocytes/100 WBC (Bld) 10.0 % . [facility] Neutrophils Auto (Bld) [#/Vo l]Ordered By: Mariposa Martinez on 07-11-2022 Neutrophils (Bld) [#/Vol] 2.6 10*3/uL 1.8-7.7 [facility] Neutrophils/100 WBC Auto (Bl d)Ordered By: Mariposa Martinez on 07-11-2022 Neutrophils/100 WBC (Bld) 54.1 % . [facility] No Panel InformationOrdered By: Delio Gonzales on 07-11-2022 Bedside Glucose #2 Comment Cleaned meter [facility] No Panel InformationOrdered By: Mariposa Martinez on 07-11-2022 Estimated GFR () 41 mL/Min [facility] Comment on above: GFR estimated refere nce range: According to KDOQI guidelines, <60 ml/min/1.73m2 is sufficient to diagnose a patient with chronic kidney disease. Pharmacy Creatinine Clearance (Chem 41.81 [facility] Nucleated erythrocytes [Pres ence] in Blood by Automated countOrdered By: Mariposa Martinez on 07-11-2022 Nucleated RBC Auto Ql (Bld) 0.2 /100{WBC} 0-0.5 [facility] Platelet mean volume Auto (B ld) [Entitic vol]Ordered By: Mariposa Martinez on 07-11-2022 Platelet mean volume (Bld) [Entitic vol] 9.2 fL 6.3-10.7 [facility] Platelets Auto (Bld) [#/Vol] Ordered By: Mariposa Martinez on 07-11-2022 Platelets (Bld) [#/Vol] 191 10*3/uL 150-450 [facility] RBC Auto (Bld) [#/Vol]Ordere d By: Mariposa Martinez on 07-11-2022 RBC (Bld) [#/Vol] 4.08 10*6/uL 3.60-5.00 [facility] Serum or plasma anion gap de terminationOrdered By: Mariposa Martinez on 07-11-2022 Anion gap [Moles/Vol] 14.1 mmol/L 6.0-15.0 [facility] Serum or plasma calcium destiny urement (mass/volume)Ordered By: Mariposa Martinez on 01-24-2023 Calcium [Mass/Vol] 9.0 mg/dL 8.2-10.2 [facility] Serum or plasma chloride consuelo surement (moles/volume)Ordered By: Mariposa Martinez on 07-11-2022 Chloride [Moles/Vol] 109 mmol/L 95-[address] [facility] Serum or plasma glucose destiny urement (mass/volume)Ordered By: Mariposa Martinez on 07-11-2022 Glucose [Mass/Vol] 84 mg/dL 70-100 [facility] Comment on above: ADA recommended refe rence rangeRandom Glucose Reference Range is dependent on time and content of last meal. Glucose of more than 200 mg/dL in a nonstressed, ambulatory subject supports the diagnosis of Diabetes Mellitus. Serum or plasma potassium me asurement (moles/volume)Ordered By: Mariposa Martinez on 07-11-2022 Potassium [Moles/Vol] 4.8 mmol/L 3.5-5.1 [facility] Serum or plasma sodium measu rement (moles/volume)Ordered By: Mariposa Martinez on 07-11-2022 Sodium [Moles/Vol] 142 mmol/L 136-146 [facility] Serum or plasma total carbon dioxide measurement (moles/volume)Ordered By: Mariposa Martinez on 07-11-2022 CO2 [Moles/Vol] 23.7 mmol/L 22.0-30.0 [facility] Serum or plasma urea nitroge n measurement (mass/volume)Ordered By: Mariposa Martinez on 07-11-2022 Urea nitrogen [Mass/Vol] 26 mg/dL 03-10 [facility] WBC Auto (Bld) [#/Vol]Ordere d By: Mariposa Martinez on 07-11-2022 WBC (Bld) [#/Vol] 4.8 10*3/uL 3.8-11.6 [facility] Glucose Poct Glucometerson 0 07-10-2022 Glucose [Mass/Vol] 86 mg/dL Normal [facility] Comment on above: Result Comment: [place] om Glucose Reference Range is dependent on time and content of last meal. Glucose of more than 200 mg/dL in a nonstressed, ambulatory subject supports the diagnosis of Diabetes Mellitus. PERFORMED BY: [address] [place] [id number] PATHOLOGIST INCIDENT ENGINEER SHANNAN GARZA M.D. Performed By: #### G LULS #### Point of Care testing , Commemt1 Glu2: Cleaned Meter [facility] Comment on above: Result Comment: PERF ORMED BY: [facility] [address] [place] [address] PATHOLOGIST INCIDENT ENGINEER SHANNAN GARZA M.D. Performed By: #### G LULS #### Point of Care testing , Glucose [Mass/Vol] 98 mg/dL Normal [facility] Comment on above: Result Comment: [place] om Glucose Reference Range is dependent on time and content of last meal. Glucose of more than 200 mg/dL in a nonstressed, ambulatory subject supports the diagnosis of Diabetes Mellitus. Performed By: #### G LULS #### Point of Care testing , Glucose Poct Glucometerson 0 07-09-2022 Glucose [Mass/Vol] 104 mg/dL Normal [facility] Comment on above: Result Comment: [place] om Glucose Reference Range is dependent on time and content of last meal. Glucose of more than 200 mg/dL in a nonstressed, ambulatory subject supports the diagnosis of Diabetes Mellitus. PERFORMED BY: [address] [place] [address] PATHOLOGIST INCIDENT ENGINEER SHANNAN GARZA M.D. Performed By: #### G LULS #### Point of Care testing , Commemt1 Glu2: Cleaned Meter [facility] Comment on above: Result Comment: PERF ORMED BY: [facility] [address] [place] [address] PATHOLOGIST INCIDENT ENGINEER SHANNAN GARZA M.D. Performed By: #### G LULS #### Point of Care testing , Glucose [Mass/Vol] 82 mg/dL Normal [facility] Comment on above: Result Comment: [place] om Glucose Reference Range is dependent on time and content of last meal. Glucose of more than 200 mg/dL in a nonstressed, ambulatory subject supports the diagnosis of Diabetes Mellitus. Performed By: #### G LULS #### Point of Care testing , Glucose Poct Glucometerson 0 07-08-2022 Glucose [Mass/Vol] 100 mg/dL [facility] Comment on above: Result Comment: [place] om Glucose Reference Range is dependent on time and content of last meal. Glucose of more than 200 mg/dL in a nonstressed, ambulatory subject supports the diagnosis of Diabetes Mellitus. PERFORMED BY: [address] [place] [address] PATHOLOGIST INCIDENT ENGINEER SHANNAN GARZA M.D. Performed By: #### G LULS #### Point of Care testing , Commemt1 Glu2: Cleaned Meter [facility] Comment on above: Result Comment: PERF ORMED BY: [address] [place] [address] PATHOLOGIST INCIDENT ENGINEER SHANNAN GARZA M.D. Performed By: #### G LULS #### Point of Care testing , Glucose [Mass/Vol] 87 mg/dL [facility] Comment on above: Result Comment: [place] om Glucose Reference Range is dependent on time and content of last meal. Glucose of more than 200 mg/dL in a nonstressed, ambulatory subject supports the diagnosis of Diabetes Mellitus. Performed By: #### G LULS #### Point of Care testing , Glucose Poct Glucometerson 0 07-07-2022 Commemt1 Glu2: Cleaned Meter [facility] Comment on above: Performed By: #### G LULS #### Point of Care testing , Commemt2 WILL NOTIFY DR/RN [facility] Comment on above: Result Comment: PERF ORMED BY: [address] [place] [address] PATHOLOGIST INCIDENT ENGINEER SHANNAN GARZA M.D. Performed By: #### G LULS #### Point of Care testing , Glucose [Mass/Vol] 84 mg/dL [facility] Comment on above: Result Comment: [place] om Glucose Reference Range is dependent on time and content of last meal. Glucose of more than 200 mg/dL in a nonstressed, ambulatory subject supports the diagnosis of Diabetes Mellitus. Performed By: #### G LULS #### Point of Care testing , Commemt1 Glu2: Cleaned Meter [facility] Comment on above: Performed By: #### G LULS #### Point of Care testing , Commemt2 WILL NOTIFY DR/RN Normal [facility] Comment on above: Result Comment: PERF ORMED BY: [address] [place] [address] PATHOLOGIST INCIDENT ENGINEER SHANNAN GARZA M.D. Performed By: #### G LULS #### Point of Care testing , Glucose [Mass/Vol] 69 mg/dL [facility] Comment on above: Result Comment: [place] om Glucose Reference Range is dependent on time and content of last meal. Glucose of more than 200 mg/dL in a nonstressed, ambulatory subject supports the diagnosis of Diabetes Mellitus. Performed By: #### G LULS #### Point of Care testing , Glucose [Mass/Vol] 80 mg/dL [facility] Comment on above: Result Comment: [place] om Glucose Reference Range is dependent on time and content of last meal. Glucose of more than 200 mg/dL in a nonstressed, ambulatory subject supports the diagnosis of Diabetes Mellitus. PERFORMED BY: [facility] [address] [place] [address] PATHOLOGIST INCIDENT ENGINEER SHANNAN GARZA M.D. Performed By: #### G LULS #### Point of Care testing , Glucose Poct Glucometerson 0 07-06-2022 Glucose [Mass/Vol] 106 mg/dL Normal [facility] Comment on above: Result Comment: [place] om Glucose Reference Range is dependent on time and content of last meal. Glucose of more than 200 mg/dL in a nonstressed, ambulatory subject supports the diagnosis of Diabetes Mellitus. Performed By: #### G LULS #### Point of Care testing , Commemt1 Glu2: Cleaned Meter [facility] Comment on above: Result Comment: PERF ORMED BY: [facility] [address] [place] [address] PATHOLOGIST INCIDENT ENGINEER SHANNAN GARZA M.D. Performed By: #### G LULS #### Point of Care testing , Glucose [Mass/Vol] 90 mg/dL Normal [facility] Comment on above: Result Comment: [place] om Glucose Reference Range is dependent on time and content of last meal. Glucose of more than 200 mg/dL in a nonstressed, ambulatory subject supports the diagnosis of Diabetes Mellitus. Performed By: #### G LULS #### Point of Care testing , Glucose Poct Glucometerson 0 07-05-2022 Commemt1 Glu2: Cleaned Meter [facility] Comment on above: Performed By: #### G LULS #### Point of Care testing , Commemt2 WILL NOTIFY DR/RN [facility] Comment on above: Result Comment: PERF ORMED BY: [address] [address] PATHOLOGIST INCIDENT ENGINEER SHANNAN GARZA M.D. Performed By: #### G LULS #### Point of Care testing , Glucose [Mass/Vol] 136 mg/dL [facility] Comment on above: Result Comment: [place] om Glucose Reference Range is dependent on time and content of last meal. Glucose of more than 200 mg/dL in a nonstressed, ambulatory subject supports the diagnosis of Diabetes Mellitus. Performed By: #### G LULS #### Point of Care testing , Glucose [Mass/Vol] 103 mg/dL Normal [facility] Comment on above: Result Comment: [place] om Glucose Reference Range is dependent on time and content of last meal. Glucose of more than 200 mg/dL in a nonstressed, ambulatory subject supports the diagnosis of Diabetes Mellitus. PERFORMED BY: [address] [place] [address] PATHOLOGIST INCIDENT ENGINEER SHANNAN GARZA M.D. Performed By: #### G LULS #### Point of Care testing , Basic Metabolic Panelon - Anion gap [Moles/Vol] 11.3 mmol/L Normal 6.0-15.0 [facility] Comment on above: Order Comment: pt is in therapy Performed By: #### G LULS #### Point of Care testing , Calcium [Mass/Vol] 9.0 mg/dL Normal 8.2-10.2 [facility] Comment on above: Order Comment: pt is in therapy Performed By: #### G LULS #### Point of Care testing , Chloride [Moles/Vol] 108 mmol/L Normal 95-[address] [facility] Comment on above: Order Comment: pt is in therapy Performed By: #### G LULS #### Point of Care testing , CO2 [Moles/Vol] 23.2 mmol/L Normal 22.0-30.0 [facility] Comment on above: Order Comment: pt is in therapy Performed By: #### G LULS #### Point of Care testing , Creatinine [Mass/Vol] 1.60 mg/dL High 0.44-1.03 [facility] Comment on above: Order Comment: pt is in therapy Performed By: #### G LULS #### Point of Care testing , Creatinine Clr Calc Pharmacy 38.85 [facility] Comment on above: Order Comment: pt is in therapy Result Comment: PERF ORMED BY: [facility] [address] [place] [address] PATHOLOGIST INCIDENT ENGINEER SHANNAN GARZA M.D. Performed By: #### G LULS #### Point of Care testing , Estimated GFR ( Ana 38 [facility] Comment on above: Order Comment: pt is in therapy Result Comment: GFR estimated reference range: According to KDOQI guidelines, <60 ml/min/1.73m2 is sufficient to diagnose a patient with chronic kidney disease. Performed By: #### G LULS #### Point of Care testing , Estimated GFR (Non- Am 31 [facility] Comment on above: Order Comment: pt is in therapy Performed By: #### G LULS #### Point of Care testing , Glucose [Mass/Vol] 167 mg/dL High 70-100 [facility] Comment on above: Order Comment: pt is in therapy Result Comment: [place] om Glucose Reference Range is dependent on time and content of last meal. Glucose of more than 200 mg/dL in a nonstressed, ambulatory subject supports the diagnosis of Diabetes Mellitus. ADA recommended reference range Performed By: #### G LULS #### Point of Care testing , Potassium [Moles/Vol] 4.5 mmol/L Normal 3.5-5.1 [facility] Comment on above: Order Comment: pt is in therapy Performed By: #### G LULS #### Point of Care testing , Sodium [Moles/Vol] 138 mmol/L Normal 136-146 [facility] Comment on above: Order Comment: pt is in therapy Performed By: #### G LULS #### Point of Care testing , Urea nitrogen [Mass/Vol] 46 mg/dL High 9-23 [facility] Comment on above: Order Comment: pt is in therapy Performed By: #### G LULS #### Point of Care testing , Glucose Poct Glucometerson 0 07-04-2022 Commemt1 Glu2: Cleaned Meter Normal [facility] Comment on above: Result Comment: PERF ORMED BY: [facility] [address] [address] PATHOLOGIST INCIDENT ENGINEER SHANNAN GARZA M.D. Performed By: #### G LULS #### Point of Care testing , Glucose [Mass/Vol] 85 mg/dL Normal [facility] Comment on above: Result Comment: [place] om Glucose Reference Range is dependent on time and content of last meal. Glucose of more than 200 mg/dL in a nonstressed, ambulatory subject supports the diagnosis of Diabetes Mellitus. Performed By: #### G LULS #### Point of Care testing , Glucose [Mass/Vol] 131 mg/dL Normal [facility] Comment on above: Result Comment: [place] om Glucose Reference Range is dependent on time and content of last meal. Glucose of more than 200 mg/dL in a nonstressed, ambulatory subject supports the diagnosis of Diabetes Mellitus. PERFORMED BY: [facility] [address] [place] [address] PATHOLOGIST INCIDENT ENGINEER SHANNAN GARZA M.D. Performed By: #### G SERGO #### Point of Care testing , Basic Metabolic Panelon 06-18 Anion gap [Moles/Vol] 11.4 mmol/L Normal 6.0-15.0 [facility] Comment on above: Performed By: #### B MP #### [facility] [address] Calcium [Mass/Vol] 8.4 mg/dL Normal 8.2-10.2 [facility] Comment on above: Performed By: #### B MP #### [facility] [address] Chloride [Moles/Vol] 110 mmol/L Normal 95-[address] [facility] Comment on above: Performed By: #### B MP #### [facility] [address] CO2 [Moles/Vol] 21.6 mmol/L Low 22.0-30.0 [facility] Comment on above: Performed By: #### B MP #### [facility] [address] Creatinine [Mass/Vol] 1.75 mg/dL High 0.44-1.03 [facility] Comment on above: Performed By: #### B MP #### [facility] [address] [place] [address] [place] Creatinine Clr Calc Pharmacy 35.52 [facility] Comment on above: Result Comment: PERF ORMED BY: [facility] [address] [place] [address] PATHOLOGIST INCIDENT ENGINEER SHANNAN GARZA M.D. Performed By: #### B MP #### [facility] [address] Estimated GFR ( Ana 34 [facility] Comment on above: Result Comment: GFR estimated reference range: According to KDOQI guidelines, <60 ml/min/1.73m2 is sufficient to diagnose a patient with chronic kidney disease. Performed By: #### B MP #### [facility] [address] [place] [address] [place] Estimated GFR (Non- Am 28 Normal [facility] Comment on above: Performed By: #### B MP #### [facility] [address] Glucose [Mass/Vol] 99 mg/dL Normal 70-100 [facility] Comment on above: Result Comment: [place] om Glucose Reference Range is dependent on time and content of last meal. Glucose of more than 200 mg/dL in a nonstressed, ambulatory subject supports the diagnosis of Diabetes Mellitus. ADA recommended reference range Performed By: #### B MP #### [facility] [address] Potassium [Moles/Vol] 4.0 mmol/L Normal 3.5-5.1 [facility] Comment on above: Performed By: #### B MP #### [facility] [address] Sodium [Moles/Vol] 139 mmol/L Normal 136-146 [facility] Comment on above: Performed By: #### B MP #### [facility] [address] Urea nitrogen [Mass/Vol] 49 mg/dL High 9-23 [facility] Comment on above: Performed By: #### B MP #### [facility] [address] Glucose Poct Glucometerson 0 07-03-2022 Commemt1 Glu2: Cleaned Meter Normal [facility] Comment on above: Result Comment: PERF ORMED BY: [facility] [address] [place] [address] PATHOLOGIST INCIDENT ENGINEER SHANNAN GARZA M.D. Performed By: #### G SERGO #### Point of Care testing , Glucose [Mass/Vol] 84 mg/dL Normal [facility] Comment on above: Result Comment: [place] om Glucose Reference Range is dependent on time and content of last meal. Glucose of more than 200 mg/dL in a nonstressed, ambulatory subject supports the diagnosis of Diabetes Mellitus. Performed By: #### G LULS #### Point of Care testing , Glucose [Mass/Vol] 110 mg/dL Normal [facility] Comment on above: Result Comment: [place] om Glucose Reference Range is dependent on time and content of last meal. Glucose of more than 200 mg/dL in a nonstressed, ambulatory subject supports the diagnosis of Diabetes Mellitus. PERFORMED BY: [place] [address] PATHOLOGIST INCIDENT ENGINEER SHANNAN GARZA M.D. Performed By: #### B MP #### [address] Glucose Poct Glucometerson 0 07-02-2022 Commemt1 [facility] Comment on above: Result Comment: Glu2 : WILL NOTIFY DR/RN Performed By: #### B MP #### [address] Commemt2 Cleaned Meter [facility] Comment on above: Result Comment: PERF ORMED BY: [place] [address] PATHOLOGIST INCIDENT ENGINEER SHANNAN GARZA M.D. Performed By: #### B MP #### [address] Glucose [Mass/Vol] 283 mg/dL [facility] Comment on above: Result Comment: [place] om Glucose Reference Range is dependent on time and content of last meal. Glucose of more than 200 mg/dL in a nonstressed, ambulatory subject supports the diagnosis of Diabetes Mellitus. Performed By: #### B MP #### [facility] [address] [place] [address] Commemt1 Glu2: Cleaned Meter [facility] Comment on above: Result Comment: PERF ORMED BY: [place] [address] PATHOLOGIST INCIDENT ENGINEER SHANNAN GARZA M.D. Performed By: #### G LULS #### Point of Care testing , Glucose [Mass/Vol] 116 mg/dL Normal [facility] Comment on above: Result Comment: [place] Glucose Reference Range is dependent on time and content of last meal. Glucose of more than 200 mg/dL in a nonstressed, ambulatory subject supports the diagnosis of Diabetes Mellitus. Performed By: #### G LULS #### Point of Care testing , Glucose Poct Glucometerson 0 07-01-2022 Glucose [Mass/Vol] 160 mg/dL Normal [facility] Comment on above: Result Comment: [place] om Glucose Reference Range is dependent on time and content of last meal. Glucose of more than 200 mg/dL in a nonstressed, ambulatory subject supports the diagnosis of Diabetes Mellitus. PERFORMED BY: [place] [address] PATHOLOGIST INCIDENT ENGINEER SHANNAN GARZA M.D. Performed By: #### B #### [address] Glucose [Mass/Vol] 118 mg/dL Normal [facility] Comment on above: Result Comment: [place] om Glucose Reference Range is dependent on time and content of last meal. Glucose of more than 200 mg/dL in a nonstressed, ambulatory subject supports the diagnosis of Diabetes Mellitus. PERFORMED BY: [place] [address] PATHOLOGIST INCIDENT ENGINEER SHANNAN GARZA M.D. Performed By: #### G LULS #### Point of Care testing , Albumin [Mass/volume] in Ser um or PlasmaOrdered By: Mariposa Martinez on 06-30-2022 Albumin [Mass/Vol] 3.3 g/dL 3.2-5.5 [facility] Complete Blood Count Auto Di ffon 06-30-2022 Basophils (Bld) [#/Vol] 0.0 10*3/uL Normal 0.0-0.2 [facility] Comment on above: Result Comment: PERF ORMED BY: [place] [address] PATHOLOGIST INCIDENT ENGINEER SHANNAN GARZA M.D. Performed By: #### P AB, CMP, CBC #### [facility] [address] [place] [address] [place] Basophils/100 WBC (Bld) 0.5 % Normal . [facility] Comment on above: Performed By: #### P AB, CMP, CBC #### [facility] [address] [place] [address] [place] Eosinophils (Bld) [#/Vol] 0.2 10*3/uL Normal 0.0-0.45 [facility] Comment on above: Performed By: #### P AB, CMP, CBC #### [facility] [address] [place] [address] [place] Eosinophils/100 WBC (Bld) 2.7 % Normal . [facility] Comment on above: Performed By: #### P AB, CMP, CBC #### [address] Erythrocyte distribution width (RBC) [Ratio] 13.5 % Normal 11.9-15.3 [facility] Comment on above: Performed By: #### P AB, CMP, CBC #### [address] Hematocrit (Bld) [Volume fraction] 42.3 % Normal 34.0-46.4 [facility] Comment on above: Performed By: #### P AB, CMP, CBC #### [facility] [address] [place] [address] [place] Hemoglobin (Bld) [Mass/Vol] 13.7 g/dL Normal 11.8-15.4 [facility] Comment on above: Performed By: #### P AB, CMP, CBC #### [place] [address] [place] Lymphocytes (Bld) [#/Vol] 1.4 10*3/uL Normal 1.00-4.8 [facility] Comment on above: Performed By: #### P AB, CMP, CBC #### [facility] [address] [place] [address] [place] Lymphocytes/100 WBC (Bld) 20.2 % Normal . [facility] Comment on above: Performed By: #### P AB, CMP, CBC #### [facility] [address] MCH (RBC) [Entitic mass] 29.9 pg Normal 24.7-34.3 [facility] Comment on above: Performed By: #### P AB, CMP, CBC #### [facility] [address] MCV (RBC) [Entitic vol] 92.7 fL Normal 80-100 [facility] Comment on above: Performed By: #### P AB, CMP, CBC #### [address] Mean Corpuscular HGB Conc 32.3 g/dL Normal 32.0-35.0 [facility] Comment on above: Performed By: #### P AB, CMP, CBC #### [address] Monocytes (Bld) [#/Vol] 0.7 10*3/uL Normal 0.0-0.8 [facility] Comment on above: Performed By: #### P AB, CMP, CBC #### [address] Monocytes/100 WBC (Bld) 10.3 % Normal . [facility] Comment on above: Performed By: #### P AB, CMP, CBC #### [address] Neutrophils (Bld) [#/Vol] 4.7 10*3/uL Normal 1.8-7.7 [facility] Comment on above: Performed By: #### P AB, CMP, CBC #### [address] Neutrophils/100 WBC (Bld) 66.3 % Normal . [facility] Comment on above: Performed By: #### P AB, CMP, CBC #### [address] NRBC% 0.2 /100{WBC} Normal 0-0.5 [facility] Comment on above: Performed By: #### P AB, CMP, CBC #### [address] Platelet mean volume (Bld) [Entitic vol] 9.0 fL Normal 6.3-10.7 [facility] Comment on above: Performed By: #### P AB, CMP, CBC #### [address] Platelets (Bld) [#/Vol] 201 10*3/uL Normal 150-450 [facility] Comment on above: Performed By: #### P AB, CMP, CBC #### [address] RBC (Bld) [#/Vol] 4.56 10*6/uL Normal 3.60-5.00 [facility] Comment on above: Performed By: #### P AB, CMP, CBC #### [address] WBC (Bld) [#/Vol] 7.1 10*3/uL Normal 3.8-11.6 [facility] Comment on above: Performed By: #### P AB, CMP, CBC #### [address] Comprehensive Metabolic Pane petrona 06-30-2022 Albumin [Mass/Vol] 3.3 g/dL Normal 3.2-5.5 [facility] Comment on above: Performed By: #### P AB, CMP, CBC #### [address] Albumin/Globulin [Mass ratio] 1.3 {ratio} Normal [facility] Comment on above: Performed By: #### P AB, CMP, CBC #### [address] ALP [Catalytic activity/Vol] 127 U/L High 32-92 [facility] Comment on above: Performed By: #### P AB, CMP, CBC #### [address] ALT [Catalytic activity/Vol] 16 U/L Normal 10-60 [facility] Comment on above: Performed By: #### P AB, CMP, CBC #### [facility] [address] [place] [address] [place] Anion gap [Moles/Vol] 11.4 mmol/L Normal 6.0-15.0 [facility] Comment on above: Performed By: #### P AB, CMP, CBC #### [facility] [address] [place] [address] [place] AST [Catalytic activity/Vol] 19 U/L Normal 10-42 [facility] Comment on above: Performed By: #### P AB, CMP, CBC #### [facility] [address] Bilirubin [Mass/Vol] 1.0 mg/dL Normal 0.3-1.[address] [facility] Comment on above: Performed By: #### P AB, CMP, CBC #### [facility] [address] Calcium [Mass/Vol] 8.8 mg/dL Normal 8.2-10.2 [facility] Comment on above: Performed By: #### P AB, CMP, CBC #### [facility] [address] [place] [address] [place] Chloride [Moles/Vol] 107 mmol/L Normal 95-[address] [facility] Comment on above: Performed By: #### P AB, CMP, CBC #### [facility] [address] [place] [address] [place] CO2 [Moles/Vol] 22.7 mmol/L Normal 22.0-30.0 [facility] Comment on above: Performed By: #### P AB, CMP, CBC #### [facility] [address] [place] [address] [place] Creatinine [Mass/Vol] 1.21 mg/dL High 0.44-1.03 [facility] Comment on above: Performed By: #### P AB, CMP, CBC #### [facility] [address] [place] [address] [place] Creatinine Clr Calc Pharmacy 51.34 Normal [facility] Comment on above: Performed By: #### P AB, CMP, CBC #### [facility] [address] Estimated GFR ( Ana 52 [facility] Comment on above: Result Comment: GFR estimated reference range: According to KDOQI guidelines, <60 ml/min/1.73m2 is sufficient to diagnose a patient with chronic kidney disease. Performed By: #### P AB, CMP, CBC #### [facility] [address] Estimated GFR (Non- Am 43 [facility] Comment on above: Performed By: #### P AB, CMP, CBC #### [address] Globulin (S) [Mass/Vol] 2.6 g/dL Normal [facility] Comment on above: Performed By: #### P AB, CMP, CBC #### [address] Glucose [Mass/Vol] 141 mg/dL High 70-100 [facility] Comment on above: Result Comment: [place] Glucose Reference Range is dependent on time and content of last meal. Glucose of more than 200 mg/dL in a nonstressed, ambulatory subject supports the diagnosis of Diabetes Mellitus. ADA recommended reference range Performed By: #### P AB, CMP, CBC #### [address] Potassium [Moles/Vol] 4.1 mmol/L Normal 3.5-5.1 [facility] Comment on above: Performed By: #### P AB, CMP, CBC #### [address] Protein [Mass/Vol] 5.9 g/dL Low 6.1-7.9 [facility] Comment on above: Performed By: #### P AB, CMP, CBC #### [address] Sodium [Moles/Vol] 137 mmol/L Normal 136-146 [facility] Comment on above: Performed By: #### P AB, CMP, CBC #### [facility] [address] Urea nitrogen [Mass/Vol] 26 mg/dL High 03-10 [facility] Comment on above: Performed By: #### P AB, CMP, CBC #### [facility] [address] Globulin Calc (S) [Mass/Vol] Ordered By: Mariposa Martinez on 06-30-2022 Globulin (S) [Mass/Vol] 2.6 g/dL [facility] Glucose Poct Glucometerson 0 06-30-2022 Glucose [Mass/Vol] 171 mg/dL Normal [facility] Comment on above: Result Comment: [facility] Glucose Reference Range is dependent on time and content of last meal. Glucose of more than 200 mg/dL in a nonstressed, ambulatory subject supports the diagnosis of Diabetes Mellitus. PERFORMED BY: [place] [address] PATHOLOGIST INCIDENT ENGINEER SHANNAN GARZA M.D. Performed By: #### B MP #### [address] Glucose [Mass/Vol] 141 mg/dL Normal [facility] Comment on above: Result Comment: [facility] Glucose Reference Range is dependent on time and content of last meal. Glucose of more than 200 mg/dL in a nonstressed, ambulatory subject supports the diagnosis of Diabetes Mellitus. PERFORMED BY: [place] [address] PATHOLOGIST INCIDENT ENGINEER SHANNAN GARZA M.D. Performed By: #### G LULS #### Point of Care testing , Prealbuminon 06-30-2022 Prealbumin [Mass/Vol] 24.2 mg/dL Normal 18.0-38.0 [facility] Comment on above: Result Comment: PERF ORMED BY: [place] [address] PATHOLOGIST INCIDENT ENGINEER SHANNAN GARZA M.D. Performed By: #### P AB, CMP, CBC #### [facility] [address] [place] [id number] [facility] Protein [Mass/volume] in Ser um or PlasmaOrdered By: Mariposa Martinez on 06-30-2022 Protein [Mass/Vol] 5.9 g/dL 6.1-7.9 [facility] Serum or plasma alanine weeks otransferase measurement without P-5'-P (enzymatic activiOrdered By: Mariposa Martinez on 06-30-2022 ALT No additional P-5'-P [Catalytic activity/Vol] 16 U/L 10-60 [facility] Serum or plasma albumin/glob ulin mass ratioOrdered By: Mariposa Martinez on 06-30-2022 Albumin/Globulin [Mass ratio] 1.3 {ratio} [facility] Serum or plasma alkaline vish sphatase measurement (enzymatic activity/volume)Ordered By: Mariposa Martinez on 06-30-2022 ALP [Catalytic activity/Vol] 127 U/L 32-92 [facility] Serum or plasma aspartate am inotransferase measurement (enzymatic activity/volume)Ordered By: Mraiposa Martinez on 06-30-2022 AST [Catalytic activity/Vol] 19 U/L 10-42 [facility] Serum or plasma prealbumin m easurement (mass/volume)Ordered By: Mariposa Martinez on 06-30-2022 Prealbumin [Mass/Vol] 24.2 mg/dL 18.0-38.0 [facility] Serum or plasma total biliru bin measurement (mass/volume)Ordered By: Mariposa Martinez on 06-30-2022 Bilirubin [Mass/Vol] 1.0 mg/dL 0.3-1.[address] [facility] CHEMISTRYOrdered By: Lab ROP User on 06-29-2022 Glucose [Mass/Vol] 115 mg/dL High 55 - 99 mg/dL [facility] Comment on above: Result Comment: Emma gris Meter POC Device SN [id number] Invalid Interpretation Code [facility] Subsection POC User ID [id number] Invalid Interpretation Code [facility] Subsection POC Username ALBERTMarceloMARIA C Invalid Interpretation Code [facility] Subsection CHEMISTRYOrdered By: Lab ROP User on 06-28-2022 Glucose [Mass/Vol] 120 mg/dL High 55 - 99 mg/dL [facility] POC Subsection Comment on above: Result Comment: Emma gris Meter POC Device SN [id number] Invalid Interpretation Code [facility] POC Subsection POC User ID [id number] Invalid Interpretation Code [facility] POC Subsection POC Username HÉCTOR WERNER Invalid Interpretation Code [facility] POC Subsection Glucose [Mass/Vol] 216 mg/dL High 55 - 99 mg/dL [facility] POC Subsection Comment on above: Result Comment: Emma gris Meter POC Device SN [id number] Invalid Interpretation Code [facility] POC Subsection POC User ID [id number] Invalid Interpretation Code [facility] POC Subsection POC Username ADILSON TOPETE Invalid Interpretation Code [facility] POC Subsection CHEMISTRYOrdered By: Lab ROP User on 06-27-2022 Glucose [Mass/Vol] 211 mg/dL High 55 - 99 mg/dL [facility] POC Subsection Comment on above: Result Comment: Noti mark WILSON/ POC Device SN [id number] Invalid Interpretation Code [facility] POC Subsection POC User ID [id number] Invalid Interpretation Code [facility] POC Subsection POC Username Franecs Paul Invalid Interpretation Code [facility] POC Subsection Glucose [Mass/Vol] 161 mg/dL High 55 - 99 mg/dL [facility] POC Subsection Comment on above: Result Comment: Emma gris Meter POC Device SN [id number] Invalid Interpretation Code [facility] POC Subsection POC User ID [id number] Invalid Interpretation Code [facility] POC Subsection POC Username Frances Paul Invalid Interpretation Code [facility] POC Subsection CHEMISTRYOrdered By: Lab ROP User on 06-26-2022 Glucose [Mass/Vol] 209 mg/dL High 55 - 99 mg/dL [facility] POC Subsection Comment on above: Result Comment: Run [facility] Confirmation POC Device SN [id number] Invalid Interpretation Code [facility] POC Subsection POC User ID [id number] Invalid Interpretation Code [facility] POC Subsection POC Username SIR MARLENA GOLDSMITH Invalid Interpretation Code [facility] POC Subsection CHEMISTRYOrdered By: SYSTEM SYSTEM on 06-26-2022 Anion gap [Moles/Vol] 12 mmol/L Normal 6 - 16 mEq/L [facility] Calcium [Mass/Vol] 8.6 mg/dL Low 8.9 - 11. 1 mg/dL [facility] Chloride [Moles/Vol] 107 mmol/L Normal 101 [...] 187 mg/dL Normal 55 - 199 mg/dL [facility] Remisol Magnesium [Mass/Vol] 1.8 mg/dL Normal 1.3 - 2 .4 mg/dL [facility] Remisol Potassium [Moles/Vol] 4.5 mmol/L Normal 3.5 [...] 9.7 % Normal 4.0 - 14.0 % [facility] Monocytes/Leukocytes Auto (Bld) [Pure # fraction] 0.6 E9/L Normal 0.2 - 1.0 E9/L [facility]eAutoSS Neutrophils/100 WBC (Bld) 64.3 % Normal 36.0 - 75.0 % [facility] Neutrophils/Leukocytes Auto (Bld) [Pure # fraction] 4.3 E9/L Normal 2.0 - 7.5 E9/L [facility] HEMATOLOGYOrdered By: Rui Randall on 06-26-2022 Erythrocyte distribution width (RBC) [Ratio] 13.5 % Normal 10.9 - 14.2 % [facility] Hematocrit (Bld) [Volume fraction] 40.4 % Normal 34.0 - 46.0 % [facility] Hemoglobin (Bld) [Mass/Vol] 12.9 g/dL Normal 12.0 - 16.0 gm/dL [facility] MCH (RBC) [Entitic mass] 30.0 pg Normal 27.0 - 34.0 pg [facility] MCHC (RBC) [Mass/Vol] 31.8 g/dL Normal 31.4 - 36.0 gm/dL [facility] MCV (RBC) [Entitic vol] 94.4 fL Normal 80.0 - 100.0 fL [facility] Platelet mean volume (Bld) [Entitic vol] 8.2 fL Normal 6.4 - 10.8 fL [facility] Platelets (Bld) [#/Vol] 215.0 E9/L Normal 150. 0 - 500.0 E9/L [facility] RBC (Bld) [#/Vol] 4.3 E12/L Normal 4.3 - 5.9 E12/L [facility] WBC corrected for nucl RBC Auto (Bld) [#/Vol] 6.7 E9/L Normal 4.0 - 11.0 E9/L [facility] CHEMISTRYOrdered By: SYSTEM SYSTEM on 06-24-2022 Anion gap [Moles/Vol] 12 mmol/L Normal 6 - 16 mEq/L [facility] Calcium [Mass/Vol] 9.1 mg/dL Normal 8.9 - 11. 1 mg/dL [facility] Chloride [Moles/Vol] 107 mmol/L Normal 101 - 1 11 mmol/L [facility] Remisol Cholesterol [Mass/Vol] 233 mg/dL High 120 - 200 mg/dL [facility]isol Cholesterol in HDL [Mass/Vol] 40 mg/dL Invalid Interpretation Code [facility] Cholesterol in LDL [Mass/Vol] 144 mg/dL High <=129mg/dL [facility] Cholesterol in VLDL [Mass/Vol] 47 mg/dL High 7 - 40 mg/dL [facility] CO2 [Moles/Vol] 24 mmol/L Normal 21 - 31 mmol/L [facility] Creatinine [Mass/Vol] 1.2 mg/dL Normal 0.5 - 1.3 mg/dL [facility] GFR/1.73 sq M.predicted among blacks MDRD (S/P/Bld) [Vol rate/Area] 53 mL/min/1.73 m2 Low >=59mL/min/ 1.73 m2 [facility] Chem S GFR/1.73 sq M.predicted among non-blacks MDRD (S/P/Bld) [Vol rate/Area] 44 mL/min/1.73 m2 Low >=59mL/min/ 1.73 m2 [facility] Chem S Glucose [Mass/Vol] 203 mg/dL High 55 - 199 mg/dL [facility] Magnesium [Mass/Vol] 1.7 mg/dL Normal 1.3 - 2 .4 mg/dL [facility] Potassium [Moles/Vol] 4.3 mmol/L Normal 3.5 - 5.3 mmol/L [facility] Sodium [Moles/Vol] 139 mmol/L Normal 135 - 145 mmol/L [facility] Triglyceride [Mass/Vol] 237 mg/dL High <=149mg/dL [facility] Urea nitrogen [Mass/Vol] 17 mg/dL Normal 5 - 21 mg/dL [facility] Urea nitrogen/Creatinine [Mass ratio] 14 mg/mg Normal 10 - 20 [facility] HEMATOLOGYOrdered By: SYSTEM SYSTEM on 06-24-2022 Basophils/100 WBC (Bld) 0.4 % Normal 0.0 - 2.0 % [facility] Basophils/Leukocytes Auto (Bld) [Pure # fraction] [...] 8.6 fL Normal 6.4 - 10.8 fL [facility]eAutoSS Platelets (Bld) [#/Vol] 213.0 E9/L Normal 150. 0 - 500.0 E9/L [facility] RBC (Bld) [#/Vol] 4.5 E12/L Normal 4.3 - 5.9 E12/L [facility] WBC corrected for nucl RBC Auto (Bld) [#/Vol] 6.0 E9/L Normal 4.0 - 11.0 E9/L [facility] CEFEPIME:SUSC:PT:ISOLATE:ORD QN:MICOrdered By: Deborah Garcia on 06-23-2022 Cefepime MARITZA [Susc] >100,000 cfu/ml Escherichia coli [facility] CHEMISTRYOrdered By: SYSTEM SYSTEM on 06-23-2022 Troponin [...] 48 mL/min/1.73 m2 Low >=59mL/min/ 1.73 m2 [facility] Chem S GFR/1.73 sq M.predicted among non-blacks MDRD (S/P/Bld) [Vol rate/Area] 40 mL/min/1.73 m2 Low >=59mL/min/ 1.73 m2 [facility] Chem S Glucose [Mass/Vol] 144 mg/dL Normal [...] 2.5 second(s) [facility] Auto Coag Cefepime MARITZA [Susc]Ordered B y: Deborah Garcia on 06-23-2022 Escherichia coli Escherichia coli [facility] HEMATOLOGYOrdered By: SYSTEM SYSTEM on 06-23-2022 Basophils/100 [...] AM) Normal Negative [facility] UA Auto SS [place].plasma/[place]. RBC (Bld) [Mass ratio] 0-3 /HPF Normal 0-3/HPF [facility] UA A uto SS Nitrite Ql (U) Positive *ABN* (06/23/22 8:23 AM) Invalid Interpretation Code Negative [facility] UA Auto SS pH (U) 5.5 *NA* (06/23/22 8:23 AM) Invalid Interpretation Code 5.0 - 9.0 [facility] UA Auto SS Protein (U) [Mass/Vol] Negative (06/23/22 8:23 AM) Normal Negative [facility] UA Auto SS Specific gravity (U) [Rel density] 1.015 *NA* (06/23/22 8:23 AM) Invalid Interpretation Code 1.005 - 1.030 [facility] Auto SS UA Spec Desc Clean Catch (06/23/22 8:23 AM) Normal [facility] UA Auto SS Urobilinogen Qn (U) 0.9100286 {Dasia'U}/dL Normal 0.0 - 1.0 EU/dL [facility] Auto SS WBC Auto Ql (U) [...] 11. 1 mg/dL [facility] Remisol Chloride [Moles/Vol] 110 mmol/L Normal 101 - 1 11 mmol/L [facility] CO2 [Moles/Vol] 22 mmol/L Normal 21 - 31 mmol/L [facility] Creatinine [Mass/Vol] 1.3 mg/dL Normal 0.5 - 1.3 mg/dL [facility] GFR/1.73 sq M.predicted among blacks MDRD (S/P/Bld) [Vol rate/Area] 48 mL/min/1.73 m2 Low >=59mL/min/ 1.73 m2 [facility] Chem S GFR/1.73 sq M.predicted among non-blacks MDRD (S/P/Bld) [Vol rate/Area] 40 mL/min/1.73 m2 Low >=59mL/min/ 1.73 m2 [facility] Chem S Glucose [Mass/Vol] 112 mg/dL Normal [...] ratio] 14 mg/mg Normal 10 - 20 [facility] Remisol CHEMISTRYOrdered By: Carolin Rivera on 02-16-2022 Albumin Elph (U) [Mass fraction] mg/dL Invalid Interpretation Code [facility] Remisol Creatinine (U) [Mass/Vol] 101.8 mg/dL Invalid Interpretation Code [facility] Remisol U Prot/Creat Ratio [facility] Invalid Interpretation Code 0.00 - 200.00 [facility] Remisol URINALYSISOrdered By: Rui Randall on 02-16-2022 Bacteria LM Ql (Urine sed) 3+ /HPF Invalid Interpretation Code Trace/HPF [facility] Auto SS Bilirubin Ql (U) Negative [...] AM) Normal Negative [facility] UA Auto SS [place].plasma/[place]. RBC (Bld) [Mass ratio] 0-3 /HPF Normal [...] [facility] UA Auto SS Urobilinogen Qn (U) 0.3344230 {Dasia'U}/dL Normal 0.0 - 1.0 EU/dL [facility] UA Auto SS WBC Auto Ql (U) Trace *ABN* (02/16/22 6:30 AM) Invalid Interpretation Code Negative [facility] UA Auto SS WBC LM.HPF (Urine sed) [#/Area] 6-15 /HPF Invalid Interpretation Code 0-5/HPF [facility] UA Auto SS Progress Noteson 12-10-2021 [employer] Authentication Interface Message Text EMERGENCY TRIAGE, TREAT AND TRANSPORT (ET3) DOCUMENTATION OF TELEHEALTH VISIT Date / Time: 12/10/2021 / 1245AM Name: Chacho Edwards : 1945 SSN: (Not on file) EMS Agency: [facility] [x] Verbal consent obtained [x] Implied [...] Completed by: Jasbir Jay MD Normal [facility] GLUCOSE-POCTon 05-24-2021 Glucose [Mass/Vol] 185 mg/dL High 74 - 99 [facility] Comment on above: Performed By: #### G CALE #### [address] [address] Glucose [Mass/Vol] 165 mg/dL High 74 - 99 [facility] Comment on above: Performed By: #### G CALE #### [address] [place] [address] Order Reconciliationon 05-24 Order Reconciliation Page 1 [...] once a (more content not included)... Normal [facility] [place] Profile - Preop v3on 05-24-2021 Patient Profile - Preop v3 Patient Profile - Preop: Initial Info: Patient DemographicsName: CHACHO EDWARDS Date: 1945 [facility] Primary Phone [phone] How to be AddressedSONJA Spoken Language PreferredEnglish Source of Informationpatient Stated Reason for AdmissionBACK SURGERY Primary [facility] [phone] Patient Belongingsremains with patient Patient Belongings Remaining with Patientclothing; vision aids Medications Brought to Hospitalno General Health: Weight in kg120.5 kilogram(s) Weight in nun913.6 pound(s) Weight Methodactual (measured) Scale Typechair Height [...] Living Arrangementshouse Resource/Environmenta l Concernsnone [place]; home with help/services Services Anticipated at Transitionnone Tobacco Use: Tobacco Useno Pre-op Checklist: Arrival [id number] Arrival Time08:04 Procedure TypeT9 LAMINECTOMY FOR INSERTION OF SPINAL CORD STIMULATOR AND PULSE GENERATOR NPOyes Last Food [id number] 20:00 Last Clear Fluid [id number] 07:30 ID Band On Patientpatient ID (name), allergy Consent Signedyes H&P Completeyes Anesthesia Assessment Completedpending EKG PerformedON CHART Chest X-Ray Performednot ordered Preop Antibioticssent to OR COVID 19 Results in Last 7 daysYES Glucose [id number] Type and Screen Resultedyes HCG Urine TestN/A [...] Surgical History, Active Electronic Signatures: Magalys Bal (STEVE) (Signed 24-May-2021 09:47) Authored: Initial Info, General Health, Health Mgmt, Relationship/Environ, Tobacco Use, Pre-op Checklist, Additional Information Last Updated: 24-May-2021 09:47 by Magalys Bal (STEVE) Normal [facility] [place]ONAVIRUS 2019, SCREEN ASY MPTOMATICon 05-23-2021 SARS-CoV-2 (COVID-19) RNA CARMELA+probe Ql (Unsp spec) Not detected Normal Not Detected [facility] Comment on above: Result Comment: . This [...] patient management decisions. Fact sheet for providers: https://www.fda.gov/media/414716/download Fact sheet for patients: https://www.fda.gov/media/063235/download This test has received FDA Emergency Use Authorization (EUA) and has been verified by [facility] ([facility]). This test is only authorized for the duration of time that circumstances exist to justify the authorization of the emergency use of in vitro diagnostic tests for the detection of SARS-CoV-2 virus and/or diagnosis of COVID-19 infection under section 564(b)(1) of the Act, 21 U.S.C. 360bbb-3(b)(1), unless the authorization is terminated or revoked sooner. [facility] is certified under CLIA-88 as qualified to perform high complexity testing. Testing is performed in the [facility] laboratories located at [address] [place] [address]. Performed By: #### C OVSC #### [facility] [id number] [place] [address] Lab Specimen Source Nasal, Nasopharyngeal Normal [facility] Comment on above: Performed By: #### C OVSC #### [facility] [id number] [place], [place] [address] Covid 19 Resultson 1 SARS-CoV-2 (COVID-19) RNA [...] contacted by the [facility] to see if any of your close [...] or Naproxen (Aleve) can also be used. Oljc-wre-dxrydtg cough and cold medicines can be used according to the instructions on the package. Some osdp-eii-ewrjdfz medicines also contain acetaminophen. Make sure you [...] water are not available, use alcohol-based hand senior security architect. Avoid touching your eyes, nose, and mouth [...] 24 darlyn (more content not included)... Normal [facility]Con 05-17-2021 Erythrocyte distribution width (RBC) [Ratio] 12.5 % Normal 11.5 - 14.5 [facility] Comment on above: Performed By: #### C BC #### [address] [address] Hematocrit (Bld) [Volume fraction] 42.5 % Normal 36.0 - 46.0 [facility] Comment on above: Performed By: #### C BC #### [address] [address] Hemoglobin (Bld) [Mass/Vol] 13.8 g/dL Normal 12.0 - 16.0 [facility] Comment on above: Performed By: #### C BC #### [address] [address] MCHC (RBC) [Mass/Vol] 32.5 g/dL Normal 32.0 - 36.0 [facility] Comment on above: Performed By: #### C BC #### [address] [address] MCV (RBC) [Entitic vol] 94 fL Normal 80 - 100 [facility] Comment on above: Performed By: #### C BC #### [address] [address] NUCLEATED RBC 0.0 /100 WBC Normal 0.0 - 0.0 [facility] Comment on above: Performed By: #### C BC #### [address] [address] Platelets (Bld) [#/Vol] 234 10*3/uL Normal 150 - 450 [facility] Comment on above: Performed By: #### C BC #### [address] [address] RBC 4.50 x10E12/L Normal 4.00 - 5.20 [facility] Comment on above: Performed By: #### C BC #### [address] [address] WBC (Bld) [#/Vol] 5.7 10*3/uL Normal 4.4 - 11.3 [facility] Comment on above: Performed By: #### C BC #### [address] [address] COMPREHENSIVE PANELon 2020 Albumin [Mass/Vol] 4.1 g/dL Normal 3.4 - 5.0 [facility] Comment on above: Performed By: #### C MP #### [address] [address] ALP [Catalytic activity/Vol] 142 U/L High 33 - 136 [facility] [place] on above: Performed By: #### C MP #### [address] [address] ALT [Catalytic activity/Vol] 8 U/L Normal 7 - 45 [facility] Comment on above: Result Comment: Cherry ents treated with Sulfasalazine may generate falsely decreased results for ALT. Performed By: #### C MP #### [address] [address] Anion gap [Moles/Vol] 11 mmol/L Normal 10 - 20 [facility] [place] on above: Performed By: #### C MP #### [address] [place] [address] AST [Catalytic activity/Vol] 11 U/L Normal 9 - 39 [facility] Comment on above: Performed By: #### C MP #### [address] [address] Bilirubin [Mass/Vol] 0.5 mg/dL Normal 0.0 - 1.2 [facility] Comment on above: Performed By: #### C MP #### [address] [address] Calcium [Mass/Vol] 8.7 mg/dL Normal 8.6 - 10.3 [facility] Comment on above: Performed By: #### C MP #### [address] [address] Chloride [Moles/Vol] 107 mmol/L Normal 98 - 107 [facility] Comment on above: Performed By: #### C MP #### [address] [address] Creatinine [Mass/Vol] 1.32 mg/dL High 0.50 - 1.05 [facility] Comment on above: Performed By: #### C MP #### [address] [address] GFR- AM. 47 mL/min/1.73m2 Abnormal >60 [facility] Comment on above: Result Comment: CALC ULATIONS OF ESTIMATED GFR ARE PERFORMED USING THE MDRD STUDY EQUATION FOR THE IDMS-TRACEABLE CREATININE METHODS. CLIN CHEM 2007;53:766-72 Performed By: #### C MP #### [address] [address] GFR-NON AM. 39 mL/min/1.73m2 Abnormal >60 [facility] [place] on above: Performed By: #### C MP #### [address] [address] Glucose [Mass/Vol] 140 mg/dL High 74 - 99 [facility] Comment on above: Performed By: #### C MP #### [address] [address] HCO3 (Bld) [Moles/Vol] 26 mmol/L Normal 21 - 32 [facility] Comment on above: Performed By: #### C MP #### [address] [address] Potassium [Moles/Vol] 4.1 mmol/L Normal 3.5 - 5.3 [facility] Comment on above: Performed By: #### C MP #### [address] [address] Protein [Mass/Vol] 6.7 g/dL Normal 6.4 - 8.2 [facility] Comment on above: Performed By: #### C MP #### [address] [address] Sodium [Moles/Vol] 140 mmol/L Normal 136 - 145 [facility] Comment on above: Performed By: #### C MP #### [address] [address] Urea nitrogen [Mass/Vol] 19 mg/dL Normal 6 - 23 [facility] Comment on above: Performed By: #### C MP #### [address] [address] STAPH/MRSA SCREENon 05-17-20 STAPH/MRSA SCREEN PATIENT: RAHUL EDWARDS LOCATION: [facility]#: [id number] : 47 AGE: SEX: F ORDERED BY: SAM VIRK SOURCE: ANTERIOR NARES COLLECTED: 05/17/21 13:17 ANTIBIOTICS AT ALYCE.: RECEIVED : 05/17/21 21:24 SITE: NARE R E S U L T S STAPH/MRSA SCREEN FINAL 05/19/21 09:50 NO Staphylococcus aureus ISOLATED. [facility] Comment on above: Performed By: #### S TAPH #### [facility] [address] [place] [address] TYPE + SCREENon 05-17-2021 ABO TYPE O Normal [facility] [place] on above: Performed By: #### T +S #### [address] [place] [address] RH TYPE Positive Normal [facility] Comment on above: Performed By: #### T +S #### [address] [place] [address] Vital Signs Date Time Vital Sign Value Performing Clinician Facility 05-21-2023 13:25-0500 Blood Pressure Location Radha Lue [facility] 05-21-2023 13:25-0500 Diastolic blood pressure 107 mm[Hg] Radha Lue [facility] 05-21-2023 13:25-0500 Heart rate 78 /min Radha Lue [facility] 05-21-2023 13:25-0500 Respiratory rate 16 /min Radha Lue [facility] 05-21-2023 13:25-0500 Systolic blood pressure 145 mm[Hg] Radha Lue [facility] 03-02-2023 11:22-0400 Diastolic blood pressure 74 mm[Hg] Mirna LilaKutu [facility] 03-02-2023 11:22-0400 Heart rate 67 /min Mirna LilaKutu [facility] 03-02-2023 11:22-0400 Mean blood pressure 92 mm[Hg] Mirna LilaKutu [facility] 03-02-2023 11:22-0400 Respiratory rate 14 /min Mirna LilaKutu [facility] 03-02-2023 11:22-0400 Systolic blood pressure 129 mm[Hg] Mirna LilaKutu [facility] 01-19-2023 09:14-0400 Diastolic blood pressure 66 mm[Hg] Dustin Zumbar [facility] 01-19-2023 09:14-0400 Heart rate 67 /min Dustin Zumbar [facility] 01-19-2023 09:14-0400 Mean blood pressure 85 mm[Hg] Dustin Zumbar [facility] 01-19-2023 09:14-0400 Respiratory rate 12 /min Dustin Zumbar [facility] 01-19-2023 09:14-0400 Systolic blood pressure 123 mm[Hg] Dustin Zumbar [facility] 01-10-2023 09:06-0400 Heart rate 70 /min Dustin Zumbar [facility] 01-10-2023 09:06-0400 SaO2% (BldA) [Mass fraction] 98 % Dustin Zumbar [facility] 01-10-2023 09:06-0400 Respiratory rate 16 /min Dustin Zumbar [facility] 01-10-2023 09:06-0400 Diastolic blood pressure 79 mm[Hg] Dustin Zumbar [facility] 01-10-2023 09:06-0400 Mean blood pressure 103 mm[Hg] Dustin Zumbar [facility] 01-10-2023 09:06-0400 Systolic blood pressure 151 mm[Hg] Dustin Zumbar [facility] 01-10-2023 09:02-0400 Heart rate 70 /min Dustin Zumbar [facility] 01-10-2023 09:02-0400 SaO2% (BldA) [Mass fraction] 97 % Dustin Zumbar [facility] 01-10-2023 09:02-0400 Respiratory rate 16 /min Dustin Zumbar [facility] 01-10-2023 09:02-0400 Diastolic blood pressure 69 mm[Hg] Dustin Zumbar [facility] 01-10-2023 09:02-0400 Mean blood pressure 88 mm[Hg] Dustin Zumbar [facility] 01-10-2023 09:02-0400 Systolic blood pressure 126 mm[Hg] Dustin Zumbar [facility] 01-10-2023 09:02-0400 Body temperature 97.52 [degF] Dustin Zumbar [facility] 01-10-2023 08:55-0400 Diastolic blood pressure 64 mm[Hg] Dustin Zumbar [facility] 01-10-2023 08:55-0400 Heart rate 67 /min Dustin Zumbar [facility] 01-10-2023 08:55-0400 SaO2% (BldA) [Mass fraction] 99 % Dustin Zumbar [facility] 01-10-2023 08:55-0400 Systolic blood pressure 109 mm[Hg] Dustin Zumbar [facility] 01-10-2023 08:22-0400 Respiratory rate 18 /min Dustin Zumbar [facility] 01-10-2023 07:40-0400 Mean blood pressure 94 mm[Hg] Dustin Zumbar [facility] 01-10-2023 07:40-0400 Body temperature 97.7 [degF] Dustin Zumbar [facility] 12-31-2022 22:35-0400 Body temperature 97.88 [degF] Pantera Billie [facility] 12-31-2022 22:35-0400 Diastolic blood pressure 92 mm[Hg] Pantera Billie [facility] 12-31-2022 22:35-0400 Heart rate 78 /min Pantera Billie [facility] 12-31-2022 22:35-0400 Respiratory rate 20 /min Pantera Billie [facility] 12-31-2022 22:35-0400 SaO2% (BldA) [Mass fraction] 94 % Pantera Billie [facility] 12-31-2022 22:35-0400 Systolic blood pressure 169 mm[Hg] Pantera Billie [facility] 12-13-2022 07:18-0400 Heart rate 71 /min Dustin Zumbar [facility] 12-13-2022 07:18-0400 SaO2% (BldA) [Mass fraction] 98 % Dustin Zumbar [facility] 12-13-2022 07:18-0400 Body temperature 97.7 [degF] Dustin Zumbar [facility] 12-13-2022 07:18-0400 Diastolic blood pressure 81 mm[Hg] Dustin Zumbar [facility] 12-13-2022 07:18-0400 Mean blood pressure 102 mm[Hg] Dustin Zumbar [facility] 12-13-2022 07:18-0400 Systolic blood pressure 145 mm[Hg] Dustin Zumbar [facility] 12-13-2022 07:17-0400 Respiratory rate 12 /min Dustin Zumbar [facility] 12-06-2022 11:06-0400 Diastolic blood pressure 70 mm[Hg] Dustin Zumbar [facility] 12-06-2022 11:06-0400 Heart rate 67 /min Dustin Zumbar [facility] 12-06-2022 11:06-0400 Mean blood pressure 84 mm[Hg] Dustin Zumbar [facility] 12-06-2022 11:06-0400 Respiratory rate 18 /min Dustin Zumbar [facility] 12-06-2022 11:06-0400 Systolic blood pressure 111 mm[Hg] Dustin Zumbar [facility] 10-26-2022 12:48-0400 Diastolic blood pressure 76 mm[Hg] Dustin Zumbar [facility] 10-26-2022 12:48-0400 Heart rate 75 /min Dustin Zumbar [facility] 10-26-2022 12:48-0400 Mean blood pressure 97 mm[Hg] Dustin Zumbar [facility] 10-26-2022 12:48-0400 Respiratory rate 18 /min Dustin Zumbar [facility] 10-26-2022 12:48-0400 Systolic blood pressure 140 mm[Hg] Dustin Zumbar [facility] 10-24-2022 11:40-0400 Body height 158.75 cm Daryl Oliver Other [employer] Other 10-24-2022 11:40-0400 Body mass index (BMI) [Ratio] 51.83 kg/m2 Daryl Oliver Other [employer] Other 10-24-2022 11:40-0400 Body weight 130.64 kg Daryl Oliver Other [employer] Other 10-24-2022 11:40-0400 Diastolic blood pressure 70 mm[Hg] Daryl Oliver Other [employer] Other 10-24-2022 11:40-0400 Systolic blood pressure 124 mm[Hg] Daryl Oliver Other [employer] Other 09-02-2022 12:08-0400 Blood Pressure Location Verónica OrzeShowMe VIdeoke [facility] 09-02-2022 12:08-0400 Body temperature 97.52 [degF] Verónica Orzech [facility] 09-02-2022 12:08-0400 Diastolic blood pressure 76 mm[Hg] Verónica Orzech [facility] 09-02-2022 12:08-0400 Heart rate 97 /min Verónica Orzech [facility] 09-02-2022 12:08-0400 SaO2% (BldA) [Mass fraction] 96 % Verónica Orzech [facility] 09-02-2022 12:08-0400 Systolic blood pressure 118 mm[Hg] Verónica Orzech [facility] 07-13-2022 03:59-0500 Body temperature 97.6 [degF] MD Lani Méndez Work Phone: [facility] 07-13-2022 03:59-0500 Diastolic blood pressure 74 mm[Hg] MD Lani Méndez Work Phone: [facility] 07-13-2022 03:59-0500 Heart rate 73 /min MD Lani Méndez Work Phone: [facility] 07-13-2022 03:59-0500 Respiratory rate 16 /min MD Lani Méndez Work Phone: [facility] 07-13-2022 03:59-0500 SaO2% (BldA) [Mass fraction] 95 % MD Lani Méndez Work Phone: [facility] 07-13-2022 03:59-0500 Systolic blood pressure 116 mm[Hg] MD Lani Méndez Work Phone: [facility] 07-09-2022 05:06-0500 Body weight 124.1 kg MD Lani Méndez Work Phone: [facility] 07-07-2022 16:24-0500 Body height 162.56 cm MD Lani Méndez Work Phone: [facility] 07-02-2022 08:26-0500 Inhaled oxygen concentration 97 % MD Lani Méndez Work Phone: [facility] 06-27-2022 16:00-0500 Hourly Rounding Hasan AMIR [facility] 06-27-2022 16:00-0500 Promise to Return Hasan AMIR [facility] 06-27-2022 15:10-0500 Hourly Rounding Hasan AMIR [facility] 06-27-2022 15:10-0500 Promise to Return Hasan AMIR [facility] 06-27-2022 14:00-0500 Hourly Rounding Hasan AMIR [facility] 06-27-2022 14:00-0500 Promise to Return Hasan AMIR [facility] 06-27-2022 12:30-0500 Blood Pressure Location Hasan AMIR [facility] 06-27-2022 12:30-0500 Body temperature 97.88 [degF] Hasan AMIR [facility] 06-27-2022 12:30-0500 Diastolic blood pressure 69 mm[Hg] Hasan AMIR [facility] 06-27-2022 12:30-0500 Heart rate 60 /min Hasan AMIR [facility] 06-27-2022 12:30-0500 Mean blood pressure 96 mm[Hg] Hasan AMIR [facility] 06-27-2022 12:30-0500 Respiratory rate 16 /min Hasan AMIR [facility] 06-27-2022 12:30-0500 SaO2% (BldA) [Mass fraction] 100 % Hasan AMIR [facility] 06-27-2022 12:30-0500 Systolic blood pressure 149 mm[Hg] Hasan AMIR [facility] 06-27-2022 08:46-0500 Diastolic blood pressure 71 mm[Hg] Hasan AMIR [facility] 06-27-2022 08:46-0500 Systolic blood pressure 131 mm[Hg] Hasan AMIR [facility] 06-27-2022 08:43-0500 Heart rate 54 /min Hasan AMIR [facility] 06-27-2022 08:43-0500 SaO2% (BldA) [Mass fraction] 97 % Hasan AMIR [facility] 06-27-2022 08:43-0500 Respiratory rate 16 /min Hasan AMIR [facility] 06-27-2022 08:43-0500 Diastolic blood pressure 71 mm[Hg] Hasan AMIR [facility] 06-27-2022 08:43-0500 Mean blood pressure 91 mm[Hg] Hasan AMIR [facility] 06-27-2022 08:43-0500 Systolic blood pressure 131 mm[Hg] Hasan AMIR [facility] 06-27-2022 08:42-0500 Body temperature 97.34 [degF] Hasan AMIR [facility] 06-27-2022 07:34-0500 SaO2% (BldA) [Mass fraction] 96 % Hasan AMIR [facility] 06-26-2022 23:38-0500 Blood Pressure Location Hasan AMIR [facility] 06-26-2022 23:38-0500 Body temperature 97.88 [degF] Hasan AMIR [facility] 06-26-2022 23:38-0500 Heart rate 56 /min Hasan AMIR [facility] 06-26-2022 23:38-0500 Mean blood pressure 86 mm[Hg] Hasan AMIR [facility] 06-26-2022 23:38-0500 Respiratory rate 18 /min Hasan AMIR [facility] 06-26-2022 20:47-0500 gluc 206 mg/dL Hasan AMIR [facility] 06-26-2022 20:44-0500 Heart rate 95 /min Hasan AMIR [facility] 06-26-2022 20:09-0500 Mean blood pressure 95 mm[Hg] Hasan AMIR [facility] 06-26-2022 20:09-0500 Body temperature 97.88 [degF] Hasan AMIR [facility] 06-26-2022 18:12-0500 gluc 240 mg/dL Hasan AMIR [facility] 06-26-2022 17:12-0500 Mean blood pressure 82 mm[Hg] Hasan AMIR [facility] 06-26-2022 17:00-0500 Body temperature 98.24 [degF] Hasan AMIR [facility] 06-26-2022 11:00-0500 Heart rate 66 /min Hasan AMIR [facility] 06-26-2022 10:15-0500 gluc 210 mg/dL Hasan AMIR [facility] 06-25-2022 16:00-0500 Mean blood pressure 93 mm[Hg] Hasan AMIR [facility] 06-24-2022 21:38-0500 Body temperature 98.24 [degF] Hasan AMIR [facility] 06-23-2022 12:25-0500 Heart rate 75 /min Hasan AMIR [facility] 06-23-2022 09:35-0500 gluc Hasan AMIR [facility] 06-23-2022 09:00-0500 Respiratory rate 22 /min Hasan AMIR [facility] 06-23-2022 08:45-0500 Respiratory rate 11 /min Hasan AMIR [facility] 06-23-2022 08:00-0500 Respiratory rate 12 /min Hasan AMIR [facility] 06-23-2022 07:05-0500 gluc Hasan AMIR [facility] 06-23-2022 07:05-0500 Heart rate 78 /min Hasan AMIR [facility] 06-01-2022 14:31-0500 Diastolic blood pressure 79 mm[Hg] Dustin Zumbar [facility] 06-01-2022 14:31-0500 Heart rate 67 /min Dustin Zumbar [facility] 06-01-2022 14:31-0500 Mean blood pressure 96 mm[Hg] Dustin Zumbar [facility] 06-01-2022 14:31-0500 Respiratory rate 18 /min Dustin Zumbar [facility] 06-01-2022 14:31-0500 Systolic blood pressure 129 mm[Hg] Dustin Zumbar [facility] 12-10-2021 00:45-0400 Diastolic blood pressure 83 mm[Hg] [employer] [facility] 12-10-2021 00:45-0400 Heart rate 74 /min [employer] 12-10-2021 00:45-0400 SaO2% (BldA) [Mass fraction] 97 % [employer] [facility] 12-10-2021 00:45-0400 Systolic blood pressure 124 mm[Hg] [address] 11-09-2021 13:42-0400 Diastolic blood pressure 76 mm[Hg] Dustin Sloanumbar [facility] 11-09-2021 13:42-0400 Heart rate 16 /min Dustin Zumbar [facility] 11-09-2021 13:42-0400 Mean blood pressure 98 mm[Hg] Dustin Zumbar [facility] 11-09-2021 13:42-0400 Respiratory rate 74 /min Dustin Zumbar [facility] 11-09-2021 13:42-0400 Systolic blood pressure 141 mm[Hg] Dustin Zumbar [facility] Encounters Encounter Date Encounter Type Care Provider Facility Start: 08-06-2023 End: 08-07-2023 ambulatory Radha Farias Facility:[facility] Start: 08-06-2023 End: 08-06-2023 Patient encounter procedure Radha Farias [facility] Start: 08-02-2023 End: 08-02-2023 ambulatory LANI D ALLSOP Not Available Start: 07-05-2023 End: 07-06-2023 ambulatory Shawn Deyvia [facility] Start: 07-05-2023 End: 07-05-2023 Patient encounter procedure Shawn Akkina [facility] Start: 06-28-2023 End: 06-28-2023 ambulatory JANA R DOLCE Not Available Start: 06-05-2023 End: 06-05-2023 ambulatory CYNDI A DONNAMILLER Not Available Start: 05-24-2023 End: 05-24-2023 ambulatory JANA DOLCE Not Available Start: 05-21-2023 End: 05-22-2023 ambulatory Lani D Allsop Facility:[facility] Start: 05-21-2023 End: 05-21-2023 Patient encounter procedure Radha Farias [facility] Start: 05-17-2023 End: 05-17-2023 ambulatory PTETY Danii PATRICK Not Available Start: 04-30-2023 End: 04-30-2023 ambulatory LANI Gloria ALLSOP Not Available Start: 03-14-2023 End: 03-15-2023 ambulatory Esteban Francois [facility] Start: 03-02-2023 End: 03-03-2023 ambulatory Mirna Bryant [facility] Start: 03-02-2023 End: 03-02-2023 Pain Management Mirnaradha Bryant [facility] Start: 01-25-2023 End: 06-18-2023 ambulatory Jana Majano [facility] Start: 01-24-2023 ambulatory MD Dustin Gonzales [facility] ity:[facility] Start: 01-19-2023 End: 01-20-2023 ambulatory Lani Gloria Allsop Facility[place] Start: 01-19-2023 End: 01-19-2023 Pain Management Dustin Gonzales [facility] Start: 01-10-2023 End: 01-11-2023 ambulatory MD Dustin Gonzales [facility] Start: 01-10-2023 End: 01-10-2023 Pain Management Dustin Gonzales [facility] Start: 01-03-2023 End: 01-04-2023 ambulatory Shawn Akkina Facility[place] Start: 01-03-2023 End: 01-03-2023 Patient encounter procedure Shawn Akkina [facility] Start: 01-01-2023 End: 01-01-2023 Emergency department patient visit Pantera Wise Facility[facility] Start: 12-31-2022 End: 12-31-2022 Emergency department patient visit Pantera Wise [facility] Start: 12-13-2022 End: 12-14-2022 ambulatory MD Dustin Gonzales Facility[place] Start: 12-13-2022 End: 12-13-2022 Pain Management Dustin Gonzales [facility] Start: 12-06-2022 End: 12-07-2022 ambulatory MD Dustin Gonzales Facility[facility] Start: 12-06-2022 End: 12-06-2022 Pain Management Dustin Gonzales [facility] Start: 10-26-2022 End: 10-27-2022 ambulatory MD Dustin Gonzales Facility[place] Start: 10-26-2022 End: 10-26-2022 Pain Management Dustin Christian [facility] Start: 10-24-2022 End: 10-24-2022 ambulatory Daryl Oliver Other [facility] [employer] Other Start: 10-24-2022 Office outpatient ne w 60 minutes Daryl Oliver [facility] Start: 09-13-2022 End: 09-14-2022 ambulatory Dustin Gonzales Facility[place] Start: 09-13-2022 End: 09-13-2022 Patient encounter procedure Dustin Gonzales [facility] Start: 09-02-2022 End: 09-03-2022 ambulatory Verónica X Orzech Facility[place] Start: 09-02-2022 End: 09-03-2022 ambulatory Verónica X Orzech Facility: [place] Start: 09-02-2022 End: 09-02-2022 Lab Drop off Verónica X Orzech [facility] Start: 09-02-2022 End: 09-02-2022 Patient encounter procedure Verónica X Orzech [facility] Start: 08-31-2022 End: 09-01-2022 ambulatory MD Dustin Gonzales [facility] Start: 06-29-2022 End: 07-13-2022 Evaluation and management of inpatient Delio Gonzales Facility:[facility] Start: 06-29-2022 End: 07-13-2022 Evaluation and management of inpatient MD Lani Méndez Work Phone: [facility] Work Phone: Start: 06-28-2022 End: 06-30-2022 Pre-admission assessment Harjeetpat SAINI [facility] Start: 06-28-2022 End: 06-28-2022 Off-Site [facility]jeetpat [facility] Start: 06-27-2022 End: 06-29-2022 Evaluation and management of inpatient Harjeet SAINI [facility] Start: 06-23-2022 End: 06-27-2022 Evaluation and management of inpatient Kimani RUBIO [facility] Start: 06-01-2022 End: 06-01-2022 Pain Management Dustin Gonzales [facility] Start: 02-16-2022 End: 02-16-2022 Patient encounter procedure Shawn Bermudez [facility] Start: 12-10-2021 End: 12-12-2021 ambulatory UNKNOWN PROVIDER Facility:[facility] Start: 12-10-2021 End: 12-10-2021 ambulatory [facility] Emergenc y Triage, Treat and Transport Start: 12-10-2021 End: 12-10-2021 Emergency department patient visit [employer] [facility] Emergency Triage, Treat and Transport Comment on above: Arrived Start: 11-09-2021 End: 11-09-2021 Pain Management Dustin Gonzales [facility] Start: 07-10-2019 End: 07-10-2019 Patient encounter procedure Lani Méndez [facility] Procedures Date Procedure Procedure Detail Performing Clinician Start: 01-10-2023 Peripheral neurostim ulator, device (physical object) Dustin Gonzales Comment on above: Explant of SCS inter nal pulse generator Start: 05-17-2021 Antibody screen Comment on above: Performed By: #### T +S #### [facility] [address] [place] [address] Start: 03-09-2021 Implantation of neurostimulator in spine Dustin Gonzales Comment on above: Bioscientific 75% re lief Start: 09-15-2020 Injection of sacroil iac joint Dustin Gonzales Start: 04-28-2020 Injection of nerve r oot of lumbar spine using fluoroscopic guidance Dustin Gonzales Comment on above: bilateral L3- no rel ief Start: 12-02-2019 Decompression of lum bar spine Dustin Gonzales Comment on above: Mild procedure pt cagle s not any relief yet Start: 07-10-2019 Dual energy X-ray ph oton absorptiometry Lani Méndez Start: 03-19-2019 Magnetic resonance imaging [employer] Comment on above: MRI W/SEDATION Lumba r Start: 03-13-2019 Arthroscopy of knee Lito alyce [employer] Comment on above: left knee meniscal w ork Start: 10-09-2018 Injection of sacroil iac joint using fluoroscopic guidance [employer] Comment on above: bilat SIJI- 40% reli ef x 2 weeks then pain returned Start: 08-07-2018 Epidural injection o f lumbar spine using fluoroscopic guidance [employer] Comment on above: 30% relief 2-3 weeks L2-L3 Start: 04-17-2018 Epidural injection o f lumbar spine using fluoroscopic guidance [employer] Comment on above: L2-3 DL- 30% relief to present Start: 02-20-2018 Injection of sacroil iac joint using fluoroscopic guidance [employer] Comment on above: b/l SJI 0% no relief , increased pain afterwards Start: 11-21-2017 Transforaminal Epidu ral Steriod Injection bilateral L3 10 [employer] Comment on above: 10% relief Start: 11-21-2017 Transforaminal Epidu ral Steriod Injection bilateral L3 11 [employer] Comment on above: 10% relief Start: 09-06-2017 Supartz injection ri ght knee #5 11 [employer] Comment on above: No relief Start: 09-06-2017 Supartz injection ri ght knee #5 12 [employer] Comment on above: No relief Start: 08-02-2017 Supartz injection ri ght knee #4 [employer] Start: 07-19-2017 Supartz injection ri ght knee #3 12 Dustin Sloanumbar Comment on above: 30% relief Start: 07-19-2017 Supartz injection ri ght knee #3 13 Dustin Sloanumbar Comment on above: 30% relief Start: 07-11-2017 Radiofrequency ablat ion of medial branch of lumbar nerve using fluoroscopic guidance Dustin SloanGüdpodeverton Comment on above: bilateral L2-L5--0% relief Start: 07-05-2017 Injection of knee joint Dustin SloanGüdpodeverton Comment on above: Right-0% relief Start: 06-21-2017 Supartz Injection to Right knee 15 Dustin Sloanumbeverton Comment on above: right Start: 06-21-2017 Supartz Injection to Right knee 16 Dustin SloanGüdpodeverton Comment on above: right Start: 09-27-2016 Injection into facet joint of lumbar spine using fluoroscopic guidance Dustin A-TEXeverton [employer] Comment on above: B/L L3-S1 100% relie f for 8 hours, pain gradually returned Start: 08-09-2016 bilateral lumbar fac et injections l3-s1 17 [employer] Comment on above: bilateral lumbar fac et injection l3-s1, 80% relief for one day, now back to baseline Start: 08-09-2016 bilateral lumbar fac et injections l3-s1 18 Dustin [employer] Comment on above: bilateral lumbar fac et injection l3-s1, 80% relief for one day, now back to baseline Augmentation of bladder Riveraharriet oliver [employer] Bilateral Radio freq uency sacroiliac ablation S1-3 18 [employer] Comment on above: No relief Bilateral Radio freq uency sacroiliac ablation S1-3 19 [employer] Comment on above: No relief Cataract extraction [...] tissue Dustin Gonzales Supartz right knee 22 [employer]per[employer] tony Gonzales Comment on above: #4- 0% relief Supartz right knee 23 [employer]per[employer] tony Gonzales Comment on above: #4- 0% relief Plan of Treatment Date Care Activity Detail Author Start: 07-12-2022 [facility] Start: 06-29-2022 [facility] Start: 06-29-2022 Hospital admission [facility] Start: 06-29-2022 Referral to clinical technical operations manager [facility] Start: 2011 Pneumococcal vaccination Pneumococcal Vaccine(s) (65+ [...] 1964 Hepatitis C screening Hepatitis C Antibody [facility] Start: 1964 Tetanus + diphtheria + acellular pertussis vaccine (product) Tdap Booster [facility] Start: 1951 COVID-19 Vaccine (#1) COVID-19 Vaccine (#1) [facility] Start: 1945 Screening for malignant neoplasm of colon Colonoscopy [facility] Patient Education Stroke (DC) [facility] Work Phone: Patient referral [facility] Work Phone: [facility] Immunizations Immunization Date Immunization Notes Care Provider Fa cility 03-27-2022 influenza virus vaccine, unspecified formulation Harjeetpat SAINI [facility] 06-03-2021 SARS-CoV-2 (COVID-19 ) mRNA BNT-162b2 vax Harjeet YENY [facility] 05-09-2021 pneumococcal polysaccharide vaccine, 23 valent Harjeet YENY [facility] 11-04-2020 COVID-19, mRNA, LNP- S, PF, 30 mcg/0.3 mL dose; Translations: [wripl-BioNTech COVID-19 Vaccine] Dustinrayshawn Gonzales [facility] Comment on above: Reason for Medicatio n: Prophylaxis 10-13-2020 COVID-19, mRNA, LNP- S, PF, 30 mcg/0.3 mL dose Dustin Gonzales [facility] Comment on above: Reason for Medicatio n: Prophylaxis 04-23-2019 influenza, high dose seasonal, preservative-free Daryl Oliver Other [employer] Other 04-04-2018 influenza, high dose seasonal, preservative-free Daryl Oliver Other [employer] Other 05-01-2017 influenza, high dose seasonal, preservative-free Daryl Oliver Other [employer] Other 03-06-2016 influenza, injectable,quadrivalent , preservative free, pediatric Daryl Oliver Other [employer] Other Payers Date Payer Category Payer Self-pay [id number] 2011 Medicare [id number] 2010 Unknown [id number] 1946 Unknown [id number] 2.16. 840.1.900246.3.579.2.732 1946 Unknown [id number] 2.16.84 0.1.709486.3.579.2.1259 1946 Unknown [id number] 2.16.84 0.1.961312.3.579.2.1259 1946 Unknown [id number] 2.16.840 .1.491405.3.579.2.1259 1946 Unknown [id number] 2.16.840 .1.337393.3.579.2.1259 1946 Unknown [id number] 2.16.840 .1.431173.3.579.2.1259 1946 Unknown [id number] 2.16.840 .1.856249.3.579.2.1259 1946 Unknown [id number] 2.16.840 .1.995407.3.579.2.1259 1946 Unknown [id number] 2.16.840. 1.793039.3.579.2.1259 1946 Unknown [id number] 2.16.8 40.1.229129.3.579.2.727 1946 Unknown [id number] 2.16.8 40.1.020011.3.579.2.727 1946 Unknown [id number] 2.16.8 40.1.443934.3.579.2.727 1946 Unknown [id number] 2.16.8 40.1.040492.3.579.2.727 1946 Unknown [id number] 2.16.8 40.1.788114.3.579.2.727 1946 Unknown [id number] 2.16.8 40.1.940695.3.579.2.727 1946 Unknown [id number] 2.16.8 40.1.613962.3.579.2.727 1946 Unknown [id number] 2.16.8 40.1.374715.3.579.2.727 1946 Unknown [id number] 2.16.8 40.1.672016.3.579.2.727 1946 Unknown [id number] 2.16.8 40.1.938448.3.579.2.727 1946 Unknown [id number] 2.16.8 40.1.370463.3.579.2.727 1946 Unknown [id number] 2.16.8 40.1.089978.3.579.2.727 1946 Unknown [id number] 2.16.8 40.1.127466.3.579.2.727 1946 Unknown [id number] 2.16.8 40.1.926540.3.579.2.727 1946 Unknown [id number] 2.16.8 40.1.947062.3.579.2.727 1946 Unknown [id number] 2.16.8 40.1.610420.3.579.2.727 1946 Unknown [id number] 2.16.8 40.1.370752.3.579.2.727 Unknown [id number] 2.16.8 40.1.879229.3.579.2.531 Social History Date Type Detail Facility Tobacco smoking status NHIS Unknown if ever smoked [facility] Start: 1945 Sex Assigned At Female [facility] Start: 07-27-2016 End: 09-02-2022 Tobacco smoking status Never smoked tobacco (finding) [facility] Sex Assigned At Female [facility] Tobacco smoking status NHIS Tobacco smoking consumption unknown [facility] Start: 1945 [facility] Never [facility] Medical Equipment Procedure Code Equipment Code Equipment Original Text Equi pment Identifier Dates Goals Date Patient Goal Desired Activity /State Functional Status Date Assessment Result Facility 05-21-2023 Functional Status N/A [facility] 03-02-2023 Functional Status N/A [facility] 01-19-2023 Functional Status N/A [facility] 01-10-2023 Functional Status N/A [facility] 12-31-2022 Functional Status N/A [facility] 12-13-2022 Functional Status N/A [facility] 12-06-2022 Functional Status N/A [facility] 10-26-2022 Functional Status N/A [facility] 09-02-2022 Functional Status N/A [facility] 07-13-2022 Functional status Patient is Pro gressing Toward Baseline [facility] Work Phone: 06-23-2022 Functional Status N/A [facility] 06-23-2022 Functional Status [facility] 06-01-2022 Functional Status N/A [facility] Mental Status Date Assessment Result Facility 07-13-2022 Cognitive function Cognitive Sta tus Patient at Baseline [facility] Work Phone: Clinical Notes 12-10-2021 to 05-21-2023 [...] Treatment for this condition includes: Antibiotic medicine. Mjcm-kjm-ofxqxta medicines to treat discomfort. Drinking enough water [...] Follow these instructions at home: Medicines Take xvnl-qzr-wbtumvy and prescription medicines only as told by [...] provider. Document Revised: 01/14/2021 Document Reviewed: 01/14/2021 [employer] Patient Education 2022 [employer]. Follow Up Care 01/24/2023 13:42:15 With:Jarrett VELASQUEZ, Radha Kirkpatrick URAyo, URO Address: When: Unknown [facility] Lemuel 03-15-2023 Note [id number]:127 [facility] 03-14-2023 Note Diagnosis: M46.1, M5 3.3 [...] and agrees to continue currently prescribed/recommended therapies. [facility] Comment on above: Result Comment: Elec tronically Signed By: Esteban Francois DO\.br\Date and Time Signed: 03/14/23 14:01 EDT 03-02-2023 [...] Date:05/21/2023 01:15:00 PM Scheduled Provider:Radha Farias MD Location:[facility] Appointment Type:URO New Patient [facility]08-04-2023 Evaluation + Plan noteExtracted from: Title:Pain Managment [...] Date:03/02/2023 11:15:00 AM Scheduled Provider:Mirna Bryant PA-C Location:.[facility] [place] Appointment Type:Pain Management - Follow Up (FT) [facility]07-26-2023 Evaluation + Plan noteExtracted from: Title:ANES Post-operative [...] Author: Yong Guevara Jr., DO Date:01/10/23 Plan [employer]hesi[employer] (ASA) physical status classification: Class III. Future Appointments Appointment Date:01/19/2023 09:15:00 AM Scheduled Provider:Mirna Bryant PA-C Location:.[facility] Appointment Type:Pain Management - Follow Up (FT) [facility]07-26-2023 Note [id number]:127[facility] 01-10-2023 NoteProcedure: Explantation of a spinal [...] transferred to the recovery room in good condition.[facility] Comment on above:Result Comment: Electronically Signed By: Christian VELASQUEZ, Dustin\.terry\Date and Time Signed: 01/10/23 09:21 [id number] Hospital Discharge instructions Patient Education 12/31/2022 23:40:20 [...] Treatment for this condition includes: Antibiotic medicine. Azap-auu-btccbdo medicines to treat discomfort. Drinking enough water [...] Follow these instructions at home: Medicines Take jmjp-kve-fmfqohb and prescription medicines only as told by [...] provider. Document Revised: 01/14/2021 Document Reviewed: 01/14/2021 [employer] Patient Education 2022 [employer]. Follow Up Care 12/31/2022 22:33:28 With:Lani Méndez Address: [address] [place] [id number] Business (1) When:Within 3 Day(s) [facility]07-16-2023 Evaluation + Plan noteExtracted from: Title:ED Note Author:Pantera Wise DO Date :12/31/22 Acute UTI (N39.0: Urinary tr act infection, site not specified) Orders: ciprofloxacin, 500 mg = 1 tab(s), Oral, q12hr, X 7 day(s), # 14 tab(s), Refills(s) 0, Pharmacy: [facility], 162, cm, 12/31/22 22:40:00 EDT, Height/Length Dosing, 131, kg, 12/31/22 22:40:00 EDT, Weight Dosing ciprofloxacin, 500 mg = 1 tab(s), Tab, Oral, Once, Stop date 12/31/22 23:18:00 EDT, STAT, Start date 12/31/22 23:18:00 EDT, 12/31/22 23:18:00 EDT phenazopyridine, 100 mg = 1 tab(s), Oral, TID, X 2 day(s), # 6 tab(s), Refills(s) 0, Pharmacy: [facility], 162, cm, 12/31/22 22:40:00 EDT, Height/Length Dosing, 131, kg, 12/31/22 22:40:00 EDT, Weight Dosing phenazopyridine, 100 mg = 1 tab(s), Tab, Oral, Once, Stop date 12/31/22 23:18:00 EDT, STAT, Start date 12/31/22 23:18:00 EDT, 12/31/22 23:18:00 EDT UA With Cult Reflex Urine Culture Future Appointments Appointment Date:01/10/2023 08:00:00 AM Scheduled Provider: Location:[facility] Appointment Type:Surgery Appointment Date:01/19/2023 09:15:00 AM Scheduled Provider:Mirna Bryant PA-C Location:.[facility] Appointment Type:Pain Management - Follow Up (FT) Diagnostic Tests Pending * Urine Culture 12/31/22 [facility]06-28-2023 Evaluation + Plan noteExtracted from: Title:Mauricio Villaseñor PRE Author:Braden Martínez DO Date:12/13/22 Plan [employer]esthesiologists (ASA) physical status classification: Class III. Anesthetic Preoperative Plan: Anesthesia General, and Monitored anethesia care. Future Appointments Appointment Date:01/19/2023 09:15:00 AM Scheduled Provider:Mirna Bryant PA-C Location:FT.[facility] Appointment Type:Pain Management - Follow Up (FT) [facility]05-11-2023 Evaluation + Plan noteExtracted from: Title:Clinical Document [...] and her home exercises in the interim. [facility]05-09-2023 Evaluation note* Encounter Date Diagnosis Assessment Notes [...] whether neurogenic claudication present (ICD-10 - M48.061) [employer] Other 03-19-2023 NoteHOSPITAL REGULATIONS: All Positive and [...] and was reviewed. REVIEW OF SYSTEMS:Done on [employer] system. PHYSICAL EXAMINATION: General: She is a [...] in the sacroiliac joints. I reviewed an [place] [employer] Reporting System report on her which [...] patient in total. Kris Awad Dictated: 08/31/2022 [id number] Transcribed: 09/01/2022 cc:Lani Méndez D.O.[facility]:Result Comment: Electronically Signed By: Dustin Gonzales MD\.br\Date and Time Signed: 09/03/22 17:02 [id number] Hospital Discharge instructions Patient Education 09/02/2022 12:43:33 [...] 02/14/2005 Document Revised: 12/03/2018 Document Reviewed: 06/05/2017 [employer] Patient Education 2020 [employer]. 09/02/2022 12:43:31 Urinary Tract Infection, Adult Urinary [...] Treatment for this condition includes: Antibiotic medicine. Gfxv-sti-otxduso medicines to treat discomfort. Drinking enough water [...] Follow these instructions at home: Medicines Take vrvp-hvi-dmdrkuh and prescription medicines only as told by [...] 03/14/2006 Document Revised: 05/22/2019 Document Reviewed: 12/12/2018 [employer] Patient Education 2020 [employer]. 09/02/2022 12:43:30 BMI for Adults BMI for [...] height. This can be done either in [place] or metric measurements. Note that charts are available to help you find your BMI quickly and easily without having to do these calculations yourself. To calculate your BMI in [place] measurements, your health care provider will: [...] medical problems. BMI can be measured using [place]es measurements or metric measurements. To interpret your [...] 02/13/2005 Document Revised: 05/17/2018 Document Reviewed: 04/17/2018 [employer] Patient Education 2020 [employer]. Follow Up Care 09/02/2022 11:09:53 With:Lani Méndez DO, FAM Address:Unknown When: Unknown [facility] 03-18-2023 Evaluation + Plan note Diagnostic Tests Pending * Urine Culture 09/02/22 [facility]01-25-2023 Progress note Author Delio Gonzales [facility] July 12, 2022 3:19pm Note Date/Time July 12, 2022 3 :19pm [facility] [address] [place] [address] Physiatry(Rehab) Progress Note Signed Patient: Chacho Edwards MR#: [id number] : 1945 Acct:[id number] Age/Sex: 77 / F Adm Date: 3 Loc: Room: 0K5145-0 Type: ADM IN Attending Dr: Delio Gonzales MD Copies to: ~ Date of Service: 07/12/2022 Subjective Subjective Narrative: Ms. Edwards is a 77 year old female admitted to [facility] inpatient rehab for functional deficits [...] unremarkable. CTA notable for origin ofthe right PEOPLESOFT CONSULTANT, no acute abnormality. Unable to obtain the [...] 18:17 07/02/22 17:36 Bisacodyl 10 Mg Supp.Rect NV 06/29/23 18:16 10 mg DAILY PRN Administration [...] 18:17 Docusate Enema 283 Mg/5 Ml Enema NV 06/29/23 18:16 DAILY PRN Constipation Gabapentin 600 [...] and proper breathing techniques during functional tasks. PRODUCTION LINE TECHNICIAN to evaluate and treat patient?s cognition, language [...] equipment to enhance the patient's a functional church Encourage deep breathing exercises and incentive spirometry RD evaluation Ensure adequate nutrition and hydration Discharge planning. Code(s): I63.9 - Cerebral infarction, unspecified Status: Acute (7) Presence of neurostimulator: Code(s): Z96.82 - Presence of neurostimulator Status: Acute (8) Left hemiplegia: Code(s): G81.94 - Hemiplegia, unspecified affecting left nondominant side Status: Acute Plan This is a 77-year-old female who presents to [facility] inpatient rehab for functional impairment [...] equipment to enhance the patient's a functional church Ensure adequate nutrition and hydration Sleep: Continue trazodone Discharge planning: Home with family tomorrow Plan: I completed a substantive portion of this encounter, the medical decision makingportion of this note in its entirety, including Allied health note review, nursing note review, consultant technology note review, discussion with nursing and case management, and more than 50% of my time was spent on counseling and coordination of care, time spent 20 minutes Patient was personally seen by me, Dr. Gonzales, on the day of encounter, reviewed the history and the relevant portions of the chart, including current orders, allied health and consultant technology notes, labs/imaging and performed gómez elements of exam and I formulated the plan of care and facilitated the medical decision making. Documented By: Delio Gonzales MD 07/12/22 151 Signed By: <Electronically signed by Delio Gonzales MD> 07/12/22 1519 [facility] Work Phone: 1(503) 216-354601-25-2023 Progress note Author Delio Gonzales [facility] July 12, 2022 2:39pm Note Date/Time July 11, 2022 1 2:21pm [facility] [address] [place] [address] Physiatry(Rehab) Progress Note Signed Patient: Chacho Edwards MR#: [id number] : 1945 Acct:[id number] Age/Sex: 77 / F Adm Date: 3 Loc: 5T Room: 9D9496-9 Type: ADM IN Attending Dr: Delio Gonzales MD Copies to: ~ <Mariposa Martinez APRN - Last Filed: 07/11/22 12:21> Date of Service: 07/11/2022 Subjective <Mariposa Martinez APRN - Last Filed: 07/11/22 12:21> Subjective Narrative: Ms. Edwards is a 77 year old female admitted to [facility] inpatient rehab for functional deficits [...] unremarkable. CTA notable for origin ofthe right PEOPLESOFT CONSULTANT, no acute abnormality. Unable to obtain the MRI due to presence of neurostimulator. She was noted to have clonic left upper extremity movements and underwent an EEGwhich demonstrated no seizure activity. Neurology initiated the patient p.o. Kera for suspected focal motor seizures. Repeat CT [...] % (Auto) 54.1 Lymph % (Auto) 31.6 [place] % (Auto) 10.0 Eos % (Auto) 3.7 Baso % (Auto) 0.6 Nucleat RBC Rel Count 0.2 Neut # (Auto) 2.6 Lymph # (Auto) 1.5 [place] # (Auto) 0.5 Eos # (Auto) 0.2 [...] MPV Neut % (Auto) Lymph % (Auto) [place] % (Auto) Eos % (Auto) Baso % (Auto) Nucleat RBC Rel Count Neut # (Auto) Lymph # (Auto) [place] # (Auto) Eos # (Auto) Baso # [...] 09:02 Atenolol *Nf* 25 Mg Tablet PO 06/30/23 [...] 18:17 07/02/22 17:36 Bisacodyl 10 Mg Supp.Rect NV 06/29/23 18:16 10 mg DAILY PRN Administration [...] 18:17 Docusate Enema 283 Mg/5 Ml Enema NV 06/29/23 18:16 DAILY PRN Constipation Gabapentin 600 [...] mg QHS PRN Administration Insomnia Assessment/Plan <Mariposa Martinez TURPENTINE FARMER - Last Filed: 07/11/22 12:21> Assessment/Plan (1) [...] and proper breathing techniques during functional tasks. PRODUCTION LINE TECHNICIAN to evaluate and treat patient?s cognition, language [...] equipment to enhance the patient's a functional church Encourage deep breathing exercises and incentive spirometry RD evaluation Ensure adequate nutrition and hydration Discharge planning. Code(s): I63.9 - Cerebral infarction, unspecified Status: Acute (7) Presence of neurostimulator: Code(s): Z96.82 - Presence of neurostimulator Status: Acute (8) Left hemiplegia: Code(s): G81.94 - Hemiplegia, unspecified affecting left nondominant side Status: Acute Plan This is a 77-year-old female who presents to [facility] inpatient rehab for functional impairment [...] equipment to enhance the patient's a functional church Ensure adequate nutrition and hydration Sleep: Continue trazodone Discharge planning: Home with family later this week. I spent greater than 15 minutes for services, including yqjg-qb-sqax encounter with the patient, discussion of the case, plan of care, and exam; and kelktfs-dj-hfvr activities, such as reviewing pertinent consultant technology documentation,recent therapy notes, laboratory and radiology studies, and discussion of case with care team including physician, nursing, rn case manager, and therapists. More than 50 % of [...] and proper breathing techniques during functional tasks. PRODUCTION LINE TECHNICIAN to evaluate and treat patient?s cognition, language [...] equipment to enhance the patient's a functional church Encourage deep breathing exercises and incentive spirometry RD evaluation Ensure adequate nutrition and hydration Discharge planning. (7) Presence of neurostimulator: (8) Left hemiplegia: Plan: I completed a substantive portion of this encounter, the medical decision makingportion of this note in its entirety, including Allied health note review, nursing note review, consultant technology note review, discussion with nursing and case management, and more than 50% of my time was spent on counseling and coordination of care, time spent 20 minutes Patient was personally seen by me, Dr. Gonzales, on the day of encounter, reviewed the history and the relevant portions of the chart, including current orders, allied health and consultant technology notes, labs/imaging and performed gómez elements of exam and I formulated the plan of care and facilitated the medical decision making. Documented By: Delio Gonzales MD 07/11/22 1214 Signed By: <Electronically signed by Delio Gonzales MD> 07/12/22 1439 <Electronically signed by ISIDRO Martinez> 07/11/22 1221 [facility] Work Phone: 1(274) 632-990901-22-2023 Progress note Author Jossy Jacobs [facility] July 09, 2022 5:41pm Note Date/Time July 09, 2022 5 :41pm [facility] [address] [place] [address] Hospitalist Progress Note Signed Patient: Chacho Edwards MR#: [id number] : 1945 Acct:[id number] Age/Sex: 77 / F Adm Date: 3 Loc: Room: [address] [place] [address] Type: ADM IN Attending Dr: Delio Gonzales [...] 18:17 07/02/22 17:36 Bisacodyl 10 Mg Supp.Rect NV 06/29/23 18:16 10 mg DAILY PRN Administration [...] 18:17 Docusate Enema 283 Mg/5 Ml Enema NV 06/29/23 18:16 DAILY PRN Constipation Gabapentin 600 [...] 06/30/22 09:00 07/08/22 08:49 Omeprazole [address] PO 06/30/23 08:59 Not Given DAILY AMAN [...] 3 1536 Signed By: <Electronically signed by CHAS Jacobs> 07/09/22 1741 [facility] Work Phone: 1(303) 266-443301-21-2023 Progress note Author Delio Gonzales [facility] July 07, 2022 10:01pm Note Date/Time July 07, 2022 1 0:01pm [facility] [address] [place] [address] Physiatry(Rehab) Progress Note Signed Patient: Chacho Edwards MR#: [id number] : 1945 Acct:[id number] Age/Sex: 77 / F Adm Date: 3 Loc: 5T Room: 8F2706-8 Type: ADM IN Attending Dr: Delio Gonzales MD Copies to: ~ Date of Service: 07/07/2022 Subjective Subjective Narrative: Ms. Edwards is a 77 year old female admitted to [facility] inpatient rehab for functional deficits [...] unremarkable. CTA notable for origin ofthe right [employer]OP[employer]OFT CONSULTANT, no acute abnormality. Unable to obtain the [...] 18:17 07/02/22 17:36 Bisacodyl 10 Mg Supp.Rect NV 06/29/23 18:16 10 mg DAILY PRN Administration [...] 18:17 Docusate Enema 283 Mg/5 Ml Enema NV 06/29/23 18:16 DAILY PRN Constipation Gabapentin 600 [...] 06/30/22 09:00 07/07/22 09:11 Omeprazole [address] PO 06/30/23 08:59 [...] and proper breathing techniques during functional tasks. PRODUCTION LINE TECHNICIAN to evaluate and treat patient?s cognition, language [...] equipment to enhance the patient's a functional church Encourage deep breathing exercises and incentive spirometry RD evaluation Ensure adequate nutrition and hydration Discharge planning. Code(s): I63.9 - Cerebral infarction, unspecified Status: Acute (7) Presence of neurostimulator: Code(s): Z96.82 - Presence of neurostimulator Status: Acute (8) Left hemiplegia: Code(s): G81.94 - Hemiplegia, unspecified affecting left nondominant side Status: Acute Plan This is a 77-year-old female who presents to [facility] inpatient rehab for functional impairment [...] equipment to enhance the patient's a functional church Ensure adequate nutrition and hydration Sleep: Continue trazodone Discharge planning: Home with family next week. Plan: I completed a substantive portion of this encounter, the medical decision makingportion of this note in its entirety, including Allied health note review, nursing note review, consultant technology note review, discussion with nursing and case management, and more than 50% of my time was spent on counseling and coordination of care, time spent 22 minutes Patient was personally seen by me, Dr. Gonzales, on the day of encounter, reviewed the history and the relevant portions of the chart, including current orders, allied health and consultant technology notes, labs/imaging and performed gómez elements of exam and I formulated the plan of care and facilitated the medical decision making. Documented By: Delio Gonzales MD 07/07/222158 Signed By: <Electronically signed by Delio Gonzales MD> 07/07/222200 [facility] Work Phone: 1(472) 784-261201-19-2023 Hospital Discharge instructionsAmbulatory Orders* Initiate Home Health Time Frame: 07/06/22, Location: Determined By Patient Additional Instructions -Full Code -Activity: As tolerated, sling PRN for comfort. -Diet: Diabetic, 1800 ADA -Skin Care: Theraworx protect wipes and nystatin powder to left breast three times a day. -Continue to monitor fingerstick blood glucose as you did at home. Your Home Health agency is [facility] ( ). They [...] office to inform them prior to your appointment.[facility] Work Phone: 1(676) 376-255601-18-2023 Progress note Author Delio Gonzales [facility] July 05, 2022 2:38pm Note Date/Time July 04, 2022 1 :20pm [facility] [address] [place] [address] Physiatry(Rehab) Progress Note Signed Patient: Chacho Edwards MR#: [id number] : 1945 Acct:[id number] Age/Sex: 77 / F Adm Date: 3 Loc: 5T Room: 0F7713-9 Type: ADM IN Attending Dr: Delio Gonzales MD Copies to: ~ <Mariposa Martinez APRN - Last Filed: 07/04/22 13:21> Date of Service: 07/04/2022 Subjective <Mariposa Martinez APRN - Last Filed: 07/04/22 13:21> Subjective Narrative: Ms. Edwards is a 77 year old female admitted to [facility] inpatient rehab for functional deficits [...] unremarkable. CTA notable for origin ofthe right PE[employer] CONSULTANT, no acute abnormality. Unable to obtain the [...] a 77 year old female admitted to [facility] inpatient rehab for functional deficits [...] unremarkable. CTA notable for origin ofthe right [employer] CONSULTANT, no acute abnormality. Unable to obtain the [...] 18:17 07/02/22 17:36 Bisacodyl 10 Mg Supp.Rect NV 06/29/23 18:16 10 mg DAILY PRN Administration [...] 18:17 Docusate Enema 283 Mg/5 Ml Enema NV 06/29/23 18:16 DAILY PRN Constipation Gabapentin 600 [...] QHS PRN Administration Insomnia Assessment/Plan <Mariposa Martinez, TURPENTINE FARMER - Last Filed: 07/04/22 13:21> Assessment/Plan (1) [...] and proper breathing techniques during functional tasks. PRODUCTION LINE TECHNICIAN to evaluate and treat patient?s cognition, language [...] equipment to enhance the patient's a functional church Encourage deep breathing exercises and incentive spirometry RD evaluation Ensure adequate nutrition and hydration Discharge planning. Code(s): I63.9 - Cerebral infarction, unspecified Status: Acute (7) Presence of neurostimulator: Code(s): Z96.82 - Presence of neurostimulator Status: Acute (8) Left hemiplegia: Code(s): G81.94 - Hemiplegia, unspecified affecting left nondominant side Status: Acute Plan Patient education This is a 77-year-old female who presents to [facility] inpatient rehab for functional impairment [...] equipment to enhance the patient's a functional church Ensure adequate nutrition and hydration Sleep: We will add trazodone Discharge planning: Home with family in 7 to 10 days. I spent greater than 15 minutes for services, including dtut-sk-chhw encounter with the patient, discussion of the case, plan of care, and exam; and xjwrdjo-mk-zwiu activities, such as reviewing pertinent consultant technology documentation, recent therapy notes, laboratory and radiology studies, and discussion of case with care team including physician, nursing, rn case manager, and therapists. More than 50 % of time was spent on patient/family counseling or coordination ofcare. Plan: I completed a substantive portion of this encounter, the medical decision makingportion of this note in its entirety, including Allied health note review, nursing note review, consultant technology note review, discussion with nursing and case management, and more than 50% of my time was spent on counseling and coordination of care, time spent 22 minutes Patient was personally seen by me, Dr. Gonzales, on the day of encounter, reviewed the history and the relevant portions of the chart, including current orders, allied health and consultant technology notes, labs/imaging and performed gómez elements of [...] and proper breathing techniques during functional tasks. PRODUCTION LINE TECHNICIAN to evaluate and treat patient?s cognition, language [...] equipment to enhance the patient's a functional church Encourage deep breathing exercises and incentive spirometry RD evaluation Ensure adequate nutrition and hydration Discharge planning. (7) Presence of neurostimulator: (8) Left hemiplegia: Plan This is a 77-year-old female who presents to [facility] inpatient rehab for functional impairment [...] equipment to enhance the patient's a functional church Ensure adequate nutrition and hydration Sleep: We will add trazodone Discharge planning: Home with family in a week or 2 I spent greater than 15 minutes for services, including spcg-ne-cqgv encounter with the patient, discussion of the case, plan of care, and exam; and gzddvdn-rh-hszq activities, such as reviewing pertinent consultant technology documentation, recent therapy notes, laboratory and radiology studies, and discussion of case with care team including physician, nursing, rn case manager, and therapists. More than 50 % of time was spent on patient/family counseling or coordination ofcare. Documented By: Mariposa Martinez APRN 07/04/22 1 314 Signed By: <Electronically signed by ISIDRO Martinez> 07/04/22 1321 <Electronically signed by Delio Gonzales MD> 07/05/22 1438 [facility] Work Phone: 1(615) 289-291101-16-2023 Progress note Author Delio Gonzales [facility] July 03, 2022 2:28pm Note Date/Time July 03, 2022 1 2:33pm [facility] [address] [place] [address] Physiatry(Rehab) Progress Note Signed Patient: Chacho Edwards MR#: [id number] : 1945 Acct:[id number] Age/Sex: 77 / F Adm Date: 3 Loc: Room: 0C8818-9 Type: ADM IN Attending Dr: Delio Gonzales MD Copies to: ~ <Mariposa Martinez APRN - Last Filed: 07/03/22 12:37> Date of Service: 07/03/2022 Subjective <Mariposa Martinez APRN - Last Filed: 07/03/22 12:37> Subjective Narrative: Ms. Edwards is a 77 year old female admitted to [facility] inpatient rehab for functional deficits [...] unremarkable. CTA notable for origin ofthe right [employer] CONSULTANT, no acute abnormality. Unable to obtain the [...] 18:17 07/02/22 17:36 Bisacodyl 10 Mg Supp.Rect NV 06/29/23 18:16 10 mg DAILY PRN Administration [...] 18:17 Docusate Enema 283 Mg/5 Ml Enema NV 06/29/23 18:16 DAILY PRN Constipation Gabapentin 800 [...] QHS PRN Administration Insomnia Assessment/Plan <Mariposa Martinez, TURPENTINE FARMER - Last Filed: 07/03/22 12:37> Assessment/Plan (1) [...] and proper breathing techniques during functional tasks. PRODUCTION LINE TECHNICIAN to evaluate and treat patient?s cognition, language [...] equipment to enhance the patient's a functional church Encourage deep breathing exercises and incentive spirometry RD evaluation Ensure adequate nutrition and hydration Discharge planning. Code(s): I63.9 - Cerebral infarction, unspecified Status: Acute (7) Presence of neurostimulator: Code(s): Z96.82 - Presence of neurostimulator Status: Acute (8) Left hemiplegia: Code(s): G81.94 - Hemiplegia, unspecified affecting left nondominant side Status: Acute Plan Patient education This is a 77-year-old female who presents to [facility] inpatient rehab for functional impairment secondary to suspected CVA. CT/CTA imaging is unremarkable and unable to obtain an MRI due to presence of neurostimulator (apparently spinal cord stimulator and pulse generator were not able to be charged). Repeat CT on 06/27/2022 again did not demonstrate any acute intracranial abnormality. * Repeat blood work reviewed. Renal function is trending up, 1.75/49 from 1.21. Patient does not have any discomfort s [...] equipment to enhance the patient's a functional church Ensure adequate nutrition and hydration Sleep: We will add trazodone Discharge planning: Home with family in 7 to 10 days. I spent greater than 15 minutes for services, including byzu-wz-lwqp encounter with the patient, discussion of the case, plan of care, and exam; and gwsgtuj-vz-jwpp activities, such as reviewing pertinent consultant technology documentation, recent therapy notes, laboratory and radiology studies, and discussion of case with care team including physician, nursing, rn case manager, and therapists. More than 50 % of [...] and proper breathing techniques during functional tasks. PRODUCTION LINE TECHNICIAN to evaluate and treat patient?s cognition, language [...] equipment to enhance the patient's a functional church Encourage deep breathing exercises and incentive spirometry RD evaluation Ensure adequate nutrition and hydration Discharge planning. (7) Presence of neurostimulator: (8) Left hemiplegia: Plan: I completed a substantive portion of this encounter, the medical decision makingportion of this note in its entirety, including Allied health note review, nursing note review, consultant technology note review, discussion with nursing and case management, and more than 50% of my time was spent on counseling and coordination of care, time spent 22 minutes Patient was personally seen by me, Dr. Gonzales, on the day of encounter, reviewed the history and the relevant portions of the chart, including current orders, allied health and consultant technology notes, labs/imaging and performed gómez elements of exam and I formulated the plan of care and facilitated the medical decision making. Documented By: Mariposa Martinez APRN 07/03/22 1 224 Signed By: <Electronically signed by ISIDRO Martinez> 07/03/22 1237 <Electronically signed by Delio Gonzales MD> 07/03/22 5827 [facility] Work Phone: 1([phone]) 349-405601-14-2023 Consult note Author Bhavesh Gonzalez [facility] July 01, 2022 7:41am Note Date/Time June 30, 2022 5 :00pm [facility] [address] [place] [address] Hospitalist Consult Note Signed Patient: Chacho Edwards MR#: [id number] : 1945 Acct:[id number] Age/Sex: 77 / F Adm Date: 3 Loc: Room: [address] [place] [address] Type: ADM IN Attending Dr: Delio Gonzales MD Copies to: MD Delio Monsivais MD Linda Obika, TURPENTINE FARMER Bhavesh Gonzalez, MD~ HPI DATE OF CONSULTATION: 06/30/22 REQUESTING [...] negative unless noted in the HPI below [facility] Attestation Statement: The following information was validated [...] mg 06/29/22 18:17 Bisacodyl 10 Mg Supp.Rect NV 06/29/23 18:16 DAILY PRN Constipation Dextrose 0 [...] 18:17 Docusate Enema 283 Mg/5 Ml Enema NV 06/29/23 18:16 DAILY PRN Constipation Gabapentin 800 mg 06/29/22 21:00 06/30/22 08:37 Gabapentin 800 Mg Tablet PO 06/29/23 20:59 800 mg BID AMAN Administration Glucose 0 gm 06/29/22 18:30 Dextrose 40% Gel 15 Gm Tube PO 06/29/23 18:29 PRN PRN Hypoglycemia Heparin Sodium (Porcine) 5,000 unit 06/30/22 21:00 Heparin 5,000 Unit/Ml Vial SUBCUT 06/30/23 20:59 Q12HR [facility] Insulin Aspart Prota 70%/Aspart 30% 20 [...] 06/30/22 09:00 06/30/22 08:37 Omeprazole 20 Mg Capsule. PO 06/30/23 08:59 [...] EXTREM-no edema BLE calves nontender SKIN-scattered bruising KA-dyyx-nthbq weakness NEURO- A&Ox3 speech clear and tongue [...] % (Auto) 66.3, Lymph % (Auto) 20.2, [place] % (Auto) 10.3, Eos % (Auto) 2.7, Baso % (Auto) 0.5, Nucleat RBC Rel Count 0.2, Neut # (Auto) 4.7, Lymph # (Auto) 1.4, [place] # (Auto) 0.7, Eos # (Auto) 0.2, [...] Obesity Documented By: Kat Barry APRN 06/30/22 1651 Signed By: <Electronically signed by ISIDRO Barry> 06/30/22 1722 <Electronically signed by Bhavesh Gonzalez MD> 07/01/22 0741 [facility] Work Phone: 1(409) 841-325801-13-2023 History and physical note Author Delio Gonzales [facility] June 30, 2022 3:11pm Note Date/Time June 30, 2022 1 1:48am [facility] [address] [place] [address] Physiatry (Rehab) H&P Signed Patient: Chacho Edwards MR#: [id number] : 1945 Acct:[id number] Age/Sex: 77 / F Adm Date: 3 Loc: Room: 5N8653-0 Type: ADM IN Attending Dr: Delio Gonzales MD Copies to: ISIDRO Hu MD Joseph Riley, MD~ <Mariposa Martinez APRN - Last Filed: 06/30/22 12:48> Date of Service: 06/30/2022 HPI <Mariposa Martinez APRN - Last Filed: 06/30/22 12:48> The patient was seen and examined on: 06/30/22 History of Present Illness: Ms. Edwards is a 77 year old female admitted to [facility] inpatient rehab for functional deficits [...] unremarkable. CTA notable for origin ofthe right [employer] CONSULTANT, no acute abnormality. Unable to obtain the [...] Bisacodyl (Bisacodyl 10 Mg Supp.Rect) 10 mg NV DAILY PRN PRN Reason: Constipation Stop: 06/29/23 [...] Enema 283 Mg/5 Ml Enema) 283 mg NV DAILY PRN PRN Reason: Constipation Stop: 06/29/23 18:16 Gabapentin (Gabapentin 800 Mg Tablet) 800 mg PO BID [facility] Stop: 06/29/23 20:59 Last Admin: 06/30/22 08:37 Dose: 800 mg Glucose (Dextrose 40% Gel 15 Gm Tube) 0 gm PO PRN PRN PRN Reason: Hypoglycemia Stop: 06/29/23 18:29 Heparin Sodium (Porcine) (Heparin 5,000 Unit/Ml Vial) 5,000 unit SUBCUT Q12HR [facility] Stop: 06/30/23 20:59 Insulin Aspart Prota 70%/Aspart 30% (Insulin Aspart Protamin/Aspart 300 Units/3 Ml Insuln.Pen) 20 units SUBCUT QAM AMAN Stop: 06/30/23 08:59 Last Admin: 06/30/22 08:38 Dose: 20 units Insulin Aspart Prota 70%/Aspart 30% (Insulin Aspart Protamin/Aspart 300 Units/3 Ml Insuln.Pen) 25 units SUBCUT DAILY.5P [facility] Stop: 06/29/23 18:47 Last Admin: 06/29/22 22:03 Dose: Not Given Lactulose (Lactulose 20 Gm/30 Ml Udc) 30 gm PO DAILY PRN PRN Reason: Constipation Stop: 06/29/23 18:16 Levetiracetam (Levetiracetam 250 Mg Tablet) 750 mg PO BID [facility] Stop: 06/29/23 20:59 Last Admin: 06/30/22 08:37 Dose: 750 mg Liraglutide (Liraglutide 18 Mg/3 Ml Pen.Injctr) 1.8 mg SUBCUT DAILY [facility] Stop: 06/30/23 08:59 Last Admin: 06/30/22 08:37 Dose: 1.8 mg Lisinopril (Lisinopril 20 Mg Tablet) 20 mg PO DAILY [facility] Stop: 06/30/23 08:59 Last Admin: 06/30/22 08:37 Dose: 20 mg Nystatin (Nystatin 100,000 Unit/Gram Powder 15 Gm Bottle) 1 applic TOPICAL TID AMAN Stop: 06/29/23 21:59 Last Admin: 06/30/22 08:38 Dose: 1 applic Omeprazole (Omeprazole 20 Mg Capsule.Dr) 40 mg PO DAILY [facility] Stop: 06/30/23 08:59 Last Admin: 06/30/22 [...] % (Auto) 66.3 Lymph % (Auto) 20.2 [place] % (Auto) 10.3 Eos % (Auto) 2.7 Baso % (Auto) 0.5 Nucleat RBC Rel Count 0.2 Neut # (Auto) 4.7 Lymph # (Auto) 1.4 [place] # (Auto) 0.7 Eos # (Auto) 0.2 [...] 2 weeks Expected Discharge Destination: Home Rehabilitation [facility]: 01.1 Primary Diagnosis: Stroke with left hemiplegia To have patient become more independent and to return home. Medical/ Functional Prognosis: Good Anticipated Functional Outcomes/Goals and Interventions: 1.Therapy Functional Outcome/Goal: Anticipate independent for bed mobility Anticipated interventions: Physician management, PT, OT, PRODUCTION LINE TECHNICIAN, , Dietitian, RehabNursing, Case management 2. Therapy Functional Outcome/Goal: Anticipate independent for transfer Anticipated interventions: Physician management, PT, OT, PRODUCTION LINE TECHNICIAN, Case management, Dietitian, Rehab Nursing 3. Therapy Functional Outcome/Goal: Anticipate independent for ambulation Anticipated interventions: Physician management, PT, OT, PRODUCTION LINE TECHNICIAN Case management, Dietitian, Rehab Nursing 4.Therapy Functional Outcome/Goal: Anticipate independent for self-care Anticipated interventions: Physician management, PT, OT, PRODUCTION LINE TECHNICIAN, Case management, Dietitian, Rehab Nursing 5.Therapy Functional Outcome/Goal: Anticipate independent for functional communication swallowing Anticipated interventions: Physician management, PT, OT, PRODUCTION LINE TECHNICIAN, Case management, Dietitian, Rehab Nursing Required Therapy [...] additional therapy on as needed basis. Comments: PRODUCTION LINE TECHNICIAN to evaluate and treat patient?s cognition, language and communication skills, assess swallow function. Other: Dietitian, Rehab nursing, Wound, P&O, Neuropsychology as needed RATIONALE FOR IRF ADMISSION: Patient has both medical and functional complexities that require 24 hour daily monitoring and intervention from Sound System Installer as well as other consulting physicians including internal medicine as well as 24 hour daily brim greaser operator nursing - for medical safe / optimal management. Patient requires interdisciplinary therapy team rehabilitation care including OT, PT, PRODUCTION LINE TECHNICIAN, SW, Psychology, Rehab Nursing, requires and can tolerate at least 3 hours of daily OT and PT therapy at least 5 days weekly. The following medical conditions significantly impact the rehabilitation process andare being addressed daily and can not be managed at home or in a lesser intense medical setting: Refer to above problem oriented plan of care Assessment/Plan <Mariposa Martinez, TURPENTINE FARMER - Last Filed: 06/30/22 12:48> (1) Diabetes: [...] is a 77-year-old female who presents to [facility] inpatient rehab for functional impairment [...] equipment to enhance the patient's a functional church Ensure adequate nutrition and hydration Sleep: We will add trazodone Discharge planning: Home with family in 7 to 10 days. I spent greater than 35 minutes for services, including vwtl-wj-kbfu encounter with the patient, discussion of the case, plan of care, and exam; and mrracvo-gc-lwum activities, such as reviewing pertinent consultant technology documentation, recent therapy notes, laboratory and radiology studies, and discussion of case with care team including physician, nursing, rn case manager, and therapists. More than 50 % of [...] and proper breathing techniques during functional tasks. PRODUCTION LINE TECHNICIAN to evaluate and treat patient?s cognition, language [...] equipment to enhance the patient's a functional church Encourage deep breathing exercises and incentive spirometry RD evaluation Ensure adequate nutrition and hydration Discharge planning. (7) Presence of neurostimulator: (8) Left hemiplegia: Plan: I completed a substantive portion of this encounter, the medical decision makingportion of this note in its entirety, including Allied health note review, nursing note review, consultant technology note review, discussion with nursing and case management, and more than 50% of my time was spent on counseling and coordination of care, time spent 45 minutes Patient was personally seen by me, Dr. Gonzales, on the day of encounter, reviewed the history and the relevant portions of the chart, including current orders, allied health and consultant technology notes, labs/imaging and performed gómez elements of exam and I formulated the plan of care and facilitated the medical decision making. Documented By: Delio Gonzales MD 06/30/22 1146 Signed By: <Electronically signed by Delio Gonzales MD> 06/30/22 1511 <Electronically signed by ISIDRO Martinez> 06/30/22 1245 [facility] Work Phone: 1(334) 636-299301-10-2023 Evaluation + Plan noteExtracted from: Title:Discharge Note Author:Ammon VELASQUEZ, Miladis Castro ate:06/27/22 Stable Discharge To, Anticipated II - Long-Term Unit Discharged to - Home independently Prescriptions [...] SubCutaneous, Daily With When Contact Information Dr. Bennett EASLEY 07/26/2022 02:10 PM [place], [place] [phone] Additional Instructions: Lani Lorena 06/29/2022 05:00 PM [facility] [place] [address]- Business (1) Additional Instructions: Core Measures: Stroke (Cerebrovascular Accident) [facility] Core Measures Transient Ischemic Attack (TIA) [facility] [place]) Extracted from: Title:APSO Note- Neurology Author:Ramona WILSON, Braulio Foy Date:06/27/22 Reason for consult: numerous acute-onset neurological deficits, onset 06/23/22 ASSESSMENT: 1. 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 Potential vascular territory right MCA and PEOPLESOFT CONSULTANT - she does have a right PEOPLESOFT CONSULTANT. There are no overt or obvious developing [...] brain with and without contrast - her Car Throttle SC-1232 spinal stimulator is MR-conditional. No one [...] field testing and is cleared by an senior director of strategy. Extracted from: Title:APSO Note-neurology Author:Franco Tirado RN Date:06/26/22 Reason for consult: numerous acute-onset neurological deficits, onset 06/23/22 ASSESSMENT: 1. 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 Potential vascular territory right MCA and PEOPLESOFT CONSULTANT - she does have a right PEOPLESOFT CONSULTANT. Interval CT from day of onset to [...] brain with and without contrast - her Car Throttle SC-1232 spinal stimulator is MR-conditional 5. Start [...] reviewed Follow-up with neurology as outpatient Ordered: [facility] Care/Day High 35 Minutes 60324 2. Hand weakness (R29.898: Other symptoms and signs involving the musculoskeletal system) Improved Continue with PT OT Ordered: atorvastatin, 80 mg = 2 tab(s), Tab, Oral, Bedtime, Routine, Start date 06/24/22 21:00:00 EST, 06/24/22 8:36:00 EST [facility] Care/Day High 35 Minutes 06060 3. T2DM (type 2 diabetes mellitus) (E11.9: Type 2 diabetes mellitus without complications) Accu-Chek with sliding scale insulin only Hemoglobin A1c is 6 Ordered: [facility] Care/Day High 35 Minutes 62398 4. UTI (urinary tract infection) (N39.0: Urinary [...] made to ensure accuracy, however, inadvertently computerized senior office support assistant sosa mistakes may be present. Dr. Vivek Wheat Hospitalist at [facility] Extracted from: Title:APSO Note-neurology Author:Franco Tirado RN Date:06/25/22 The patient is a 77-year-old right-handed [...] Radiculopathy, lumbosacral region) Extracted from: Title:APSO Note Author:Vivek WHEAT MD Date:06/24/22 77-year-old female with past medical history [...] Ordered: [facility] Hospital Care/Day High 70 Minutes 48145 2. Hand weakness (R29.898: Other symptoms and signs involving the musculoskeletal system) Improved Continue with PT OT Management as above Ordered: atorvastatin, 80 mg = 2 tab(s), Tab, Oral, Bedtime, Routine, Start date 06/24/22 21:00:00 EST, 06/24/22 8:36:00 EST [facility] Care/Day High 70 Minutes 59213 3. T2DM (type 2 diabetes mellitus) (E11.9: Type 2 diabetes mellitus without complications) Accu-Chek with sliding scale insulin Ordered: insulin lispro, 0-10 Units, Injection-Insulin, SubCutaneous, QIDACHS, Routine, Start date 06/23/22 11:30:00 EST Diabetic/Calorie Control Diet Initial Hospital Care/Day High 70 Minutes 36786 Routine Capillary Glucose POC 4. UTI (urinary [...] made to ensure accuracy, however, inadvertently computerized senior office support assistant sosa mistakes may be present. Dr. Vivek Wheat Hospitalist at [facility] Extracted from: Title:APSO Note-neurology Author:Franco Tirado RN Date:06/24/22 The patient is a 77-year-old right-handed [...] specified health status) Extracted from: Title:Consult Note-neurology Author:Khang Tirado RN ichole Date:06/23/22 The patient is a 77-year-old [...] made to ensure accuracy, however, inadvertently computerized senior office support assistant sosa mistakes may be present. Dr. Vivek Wheat Hospitalist at [facility] Extracted from: Title:ED Note Author:Jung Esparza DO Date: Arm paresthesia, left (R20.2 : Paresthesia of skin) Hand weakness (R29.898: Other symptoms and signs involving the musculoskeletal system) Orders: Automated Diff Basic Metabolic Panel CBC w/ Auto Diff [place] Stroke Scale Communication Order Physician to Nursing [...] Date:08/31/2022 11:00:00 AM Scheduled Provider:Dustin Gonzales MD Location:.[facility] [place] Appointment Type:Pain Management - Follow Up (FT) [facility]01-10-2023 Hospital Discharge instructions Patient Education 06/26/2022 23:58:30 Core Measures: St[place] (Cerebrovascular Accident) [facility] St[place] (Cerebrovascular Accident) A stroke is [...] factors for stroke, work with your health medicare biller to control them. High Blood Pressure: High [...] Please call [place] Smoking Cessation Program at [phone] ([facility] or [phone], ext. [phone] Diabetes: Work with your healthcare professional to [...] cholesterol diet, you can call our Ana field interviewer at [phone] Ext. [phone]. The goal for total cholesterol is less [...] your risk of stroke with your health medicare biller. TREATMENT TIME IS OF THE ESSENCE! Medications [...] Measures will be takento prevent short and exterminator termite complications, including aspiration pneumonia, blood clots in [...] for more information on strokes, log onto www.[email or web address] or www.strokeassociation.org or call the [employer] at (010) 575- 7178. Revised 06/201806/26/2022 23:58:30 Core Measures Transient Ischemic Attack (TIA) [facility] [place] Transient Ischemic Attack You have had [...] factors for stroke, work with your health medicare biller to control them. Risk Factors: High Blood [...] Please call [place] Smoking Cessation Program at [phone] ([facility] or [phone], ext. [phone] Diabetes: Work with your healthcare professional to [...] cholesterol diet, you can call our Ana field interviewer at [phone] Ext [phone]. The goal for total cholesterol is less [...] your risk of stroke with your health medicare biller. If this is your first ischemic attack, [...] for more information on strokes, log onto www.[email or web address] or www.strokeassociation.org or call the [employer] at . Revised 06/2018 Follow Up Care 06/23/2022 07:09:56 [phone] Address:Unknown When: Unknown Comments:Pain clinic With:Dr. Virk NEURO Address: [place], [place] [phone] When:07/26/2022 14:10:00 With:Lani Méndez Address: [address] [place] [id number] Business (1) When:06/29/2022 17:00:00 [facility]06-25-2022 History of Present illness Narrative* Jasbir Jay MD - 12/10/2021 1:07 AM EDT Images from the original note were not included. EMERGENCY TRIAGE, TREAT AND TRANSPORT (ET3) DOCUMENTATION OF TELEHEALTH VISIT Date / Time: 12/10/2021 / 1245AM Name: Darling Edwardsja : 1945 SSN: (Not on file) EMS Agency: [facility] [x] Verbal consent obtained [x] Implied [...] note No data available for this section [facility] Future Appointments Appointment Date:02/21/2022 10:45:00 AM Scheduled Provider: Location:FT.OCCUPATIONAL Appointment Type:OT 45 (FT) Appointment Date:02/23/2022 01:30:00 PM Scheduled Provider: Location:FT.OCCUPATIONAL Appointment Type:OT 60 (FT) Appointment Date:02/27/2022 10:00:00 AM Scheduled Provider: Location:FT.OCCUPATIONAL Appointment Type:OT Re-Eval (FT) Appointment Date:02/28/2022 01:00:00 PM Scheduled Provider: Location:.OCCUPATIONAL Appointment Type:OT 60 (FT) Appointment Date:03/02/2022 08:00:00 AM Scheduled Provider: Location:FT.OCCUPATIONAL Appointment Type:OT 60 (FT) Appointment Date:03/06/2022 08:30:00 AM Scheduled Provider: Location:FT.OCCUPATIONAL Appointment Type:OT 60 (FT) Appointment Date:03/07/2022 10:00:00 AM Scheduled Provider: Location:FT.OCCUPATIONAL Appointment Type:OT 60 (FT) Appointment Date:03/09/2022 08:30:00 AM Scheduled Provider: Location:.OCCUPATIONAL Appointment Type:OT Re-Eval ([facility] Future Appointments Appointment Date:08/31/2022 11:00:00 AM Scheduled Provider:Dustin Gonzales MD Location:FT.Pain [facility] [place] Appointment Type:Pain Management - [facility] Future Appointments Appointment Date:06/29/2022 04:00:00 PM Scheduled Provider: Location:.MRI Appointment Type:MRI Brain (FT) Appointment Date:08/31/2022 11:00:00 AM Scheduled Provider:Dustin Gonzales MD Location:FT.Pain [place] [facility] Appointment Type:Pain Management - Follow Up (FT) Future Scheduled Tests Radiology* MRI Brain w/o Contrast 06/29/22 [facility] Evaluation + Plan note Future Appointments Appointment Date:12/13/2022 08:00:00 AM Scheduled Provider: [facility] Type:Surgery FT Appointment Date:12/20/2022 11:00:00 AM Scheduled Provider:Dustin Gonzales MD Location:FT.Pain Mg[facility] [place] Appointment Type:Pain Management - [facility] Future Appointments Appointment Date:01/10/2023 08:00:00 AM Scheduled Provider: Location:[facility] Appointment Type:Surgery FT Appointment Date:01/19/2023 09:15:00 AM Scheduled Provider:Mirna Bryant PA-C Location:[facility] Appointment Type:Pain Management - Follow [facility] Future Appointments Appointment Date:08/06/2023 01:00:00 PM Scheduled Provider:Radha Farias MD Location:[facility] Appointment Type:URO Office Visit [facility] Evaluation + Plan note Future Appointments Appointment Date:08/06/2023 01:15:00 PM Scheduled Provider:Radha Farias MD Location:[facility] Appointment Type:URO [facility] Diagnosis Fall, initial encounter- Primary Contusion of left wrist, initial encounter [facility] Diagnosis Onset Date Resolution Status CVA (cerebral vascular accident) acute Diabetes acute Hyperlipidemia acute Hypertension acute Impaired mobility and activities of daily living acute Left hemiplegia acute Obesity, morbid, BMI 40.0-49.9 acute Presence of neurostimulator acute [facility] Work Phone: Hiscxqq general Narrative - Reported* Type Description Date [...] Hospitalization History see surgical history Hospital[place] [facility] [facility] Other Hospital Discharge instructions No data available for this section [facility] No data available for this section [facility] Advance Directives No Advanced Directives Records Found [...] section and content) DATE CREATED AUTHOR 05/24/2021 [facility] DATE CREATED AUTHOR AUTHOR'S ORGANIZ ATION [place]2021 [facility] DATE CREATED AUTHOR AUTHOR'S ORGANIZ ATION 12/13/2021 [facility] DATE CREATED AUTHOR AUTHOR'S ORGANIZ ATION 08/30/2022 [facility] DATE CREATED AUTHOR AUTHOR'S ORGANIZ ATION 08/04/2023 [facility] EPIC DATE CREATED AUTHOR AUTHOR'S ORGANIZ ATION 08/08/2023 [facility] Reason for Visit (unrecogniz ed section and content) Reason Comments Fall Fell down while movi ng stuff landing on her left wrist. Unable to get up and called 911 Care Team (unrecognized sect ion and content) Team Status: Inactive Member Role Status Dates Lani Méndez MD Primary Care Provider Active Delio Gonzales MD Admit Provider, Attending Provider Danii Nicolas RN Other Provider Active Katrin Cowan , STEVE Other Provider Active Surekha Dubon , STEVE Other Provider Active Frances Craig RN Other Provider Active Judy Jeong RN Other Provider Active Jerilyn Bruno RN Other Provider Active Amador Caldwell MD Other Provider Active Hilary Morales , TURPENTINE FARMER Other Provider Active Helene Garcia , DO [...] MD Other Provider Active Sophie Ruelas , OLIVE PICKER-C Other Provider Active Wilfrid Huber MD Other Provider Active Caleb Roberts MD Other Provider Active Thiago Monteiro MD Other Provider Active Jillian Edwrads , DO Other Provider Active Andrew Lira , DO Other Provider Active Jose David Bowens , DO Other Provider Active Kat Barry , TURPENTINE FARMER Other Provider Active Timothy Mercado , DO Other Provider Active Fernando Rowe MD Other Provider Active Michelle Byers , TURPENTINE FARMER Other Provider Active Eunice Phipps RN Other Provider Active Team Status: Active Member [...] BE BASED ON THE PRIMARY CLINICAL RECORDS. [facility] [employer] provides no warranty or guarantee of the accuracy or completeness of information in this document.
[2023-09-07] MEDS: 0.9 % SODIUM CHLORIDE 500 ML, LIDOCAINE HCL 20 ML, SODIUM BICARBONATE 10 MEQ INJ (10:42)
[2023-09-07] MEDS: LIDOCAINE HCL 1% 100 MG/10 ML MDV INJ (10:42)
== END 2023-09-07 10:18 | disposition home or self-care (01) ==
LOC: VC 10:17
PROVIDERS: PCP Radiology Diagnostic Radiology; Visit Provider Radiology Diagnostic Radiology
DX: I83.813 Varicose veins of bilateral lower extremities with pain (principal)
CPT/HCPCS: 36478

== ENCOUNTER 2023-09-13 10:40 | Outpatient (OUT) | payer MEDICARE, SELFPAY ==
--- NOTE | 2023-09-13 10:53 | VEIN_ITS ---
Patient Name: CHACHO EDWARDS MR#: [id number] : 1945 Exam Date: 09/13/2023 Ordering Doctor: DR FORTUNATO YOUNGBLOOD M.D. RADIOLOGY REPORT PROCEDURE: VC EXT VENOUS RT LMTD COMPARISON: None. INDICATIONS: Pain due to varicose veins of bilateral legs I83.813 TECHNIQUE: Lower extremity aponte scale and Duplex Doppler evaluation of the deep venous system from the inguinal ligament through the calf veins. FINDINGS: REGION: Right lower extremity. THROMBI: Negative for DVT. Heat induced thrombus visualized 5.3cm from SFJ. The heat induced thrombus extends from groin to distal calf. COMPRESSIBILITY: FLOW: Areas of no flow corresponding to thrombus CONCLUSION: Post ablation occlusion of the right great saphenous vein with heat induced thrombus 5.3 cm from the saphenofemoral junction No deep vein thrombus Dictated by: Fortunato Youngblood MD on 09/13/2023 at 11:14 Approved by: Fortunato Youngblood MD on 09/13/2023 at 11:14
--- NOTE | 2023-09-13 10:53 | VEIN_ITS ---
Patient Name: CHACHO EDWARDS MR#: [id number] : 1945 Exam Date: 09/13/2023 Ordering Doctor: DR FORTUNATO YOUNGBLOOD M.D. RADIOLOGY REPORT PROCEDURE: [facility] EST LMTD VEIN CENTER - OFFICE VISIT FOLLOW UP COMPARISON: [facility], 08/30/2023. PROGRESS NOTES: The patient reports no significant problems following intravenous laser ablation of the right great saphenous vein. The patient had some mild tenderness of the medial thigh. The patient did wear her compression stocking. Patient did not require analgesics. Physical exam demonstrates areas of bruising in the medial right thigh likely related to tumescence injection. Thrombosed right great saphenous gain can be partially palpated. No erythema or warmth to suggest cellulitis or thrombophlebitis. No active ulceration Review of the ultrasound performed the same day demonstrates occlusive thrombus extending throughout the treated right great saphenous vein with heat induced thrombus 5.3 cm from the saphenofemoral junction. The patient expressed a desire to proceed with treatment of incompetent varicose veins with micro foam chemical ablation. [facility] 1. Successful ablation of the right great saphenous vein 2. Persistent bilateral incompetent varicose veins. PLAN: Micro foam chemical ablation left leg incompetent varicose veins Nurse notes, history and physical were reviewed and confirmed, see attached forms. The nurse was present throughout the physical exam and consultation Dictated by: Fortunato Youngblood MD on 09/13/2023 at 11:58 Approved by: Fortunato Youngblood MD on 09/13/2023 at 12:00
== END 2023-09-13 10:41 | disposition home or self-care (01) ==
LOC: VC 10:41
PROVIDERS: PCP Radiology Diagnostic Radiology; Visit Provider Radiology Diagnostic Radiology
DX: I80.01 Phlebitis and thrombophlebitis of superficial vessels of right lower extremity (principal)
CPT/HCPCS: 93971; G0463